=== PATIENT | female | born 1950 | race Caucasian/White ===

== ENCOUNTER 2017-09-26 12:45 | Emergency (ER) | payer OTHER, SELFPAY ==
[2017-09-26 12:47] VITALS: BP 147/70; PULSE 86; RESP 20; TEMP 37.2; O2SAT 95; BMI 48.6
[2017-09-26 13:37] LABS: Mucous, Urine 0 SEEN /hpf (<or=2+)
[2017-09-26 13:38] LABS: Color, Urine Yellow (Yellow); Glucose, Dipstick 1000 mg/dl (Normal); Ketone-Dipstick Negative (Negative); Leukocyte Esterase-Dipstick 500 /ul (Negative); Nitrite-Dipstick Positive (Negative); Occult Blood-Urine Negative /ul (Negative); Protein-Dipstick 15 mg/dl (Negative); Urine Bilirubin Dipstick Negative (Negative); Urine Clarity Sl. Cloudy (Clear); Urine Urobilinogen Normal (Normal)
[2017-09-26 13:42] LABS: Bacteria 3+ /hpf (None Seen); Red Blood Cells-Urine 0-5 SEEN /hpf (0-5); Squamous Epithelial Cells - UA 0-5 SEEN /hpf (5-10); White Blood Cells 10-25 SEEN /hpf (0-5)
[2017-09-26] MEDS: Metoclopramide 10 MG/2 ML Vial 5 MG IV (13:47)
[2017-09-26] MEDS: morphine 8 MG/ML Syringe IV (13:47)
--- NOTE | 2017-09-26 14:17 | ED.VISSUMM ---
- ER Visit Summary Date of Service: 09/26/17 Chief Complaint: Acute left flank pain. Patient's concerned she has a kidney stone History of Present Illness: The patient is a 66 F who presents with left flank pain. The pain is worse with any type of movement. She denied fever chills or night sweats. She was unaware that her temperature is 100.4. She denies cough, shortness of breath, pleuritic chest pain or pleuritic back pain. She does complain of frequency without urgency, dysuria or hematuria. There is no history of trauma. She also complains of mild bifrontal headache. Past medical history of type 2 diabetes, hypertension hypercholesterolemia. There is history of uterine cancer. She is status post hysterectomy. Physical Examination: Vital signs remarkable for temperature 100.4. BMI is 48.7. Head is atraumatic normocephalic. Pupils are equal round reactive. Extraocular muscles are intact. TMs are pearly white with landmarks noted. Nares patent with no drainage. Posterior pharynx without erythema or exudate. Uvula is midline. There is no dysphonia or dysphasia. Trachea is midline. There is no stridor with auscultation of the neck. Heart is regular without murmur, gallop or rub. S1 and S2 are normal. Lungs are clear to auscultation with good movement of air bilaterally. Abdomen is soft with tenderness of the left kidney deep palpation. There is left CVA tenderness noted. Is no dermatologic lesions noted. Straight leg test is negative. DTRs patella and ankle are symmetric. EHL is intact. No clonus or Babinski sign. Distal pulses are palpable but diminished. Test Results: UA is remarkable for pyuria and bacteria. Emergency Department Course and Treatment: 1 g of Rocephin IV piggyback. Patient's been medicated with morphine ?2. Blood work was not obtained since she does not meet criteria for sepsis. I.e. she does not have a fever she is not tachypnic is not tachycardic. Her temperature is elevated, but she does not have a fever. Treatment Plan: Prescription for ciprofloxacin 500 mg twice daily ?7 days and Percocet for pain. Disposition: Discharged home with appropriate home-going instructions Impression: Acute pyelonephritis This note was generated with [employer] dictation software. It may contain incorrect words, spelling, and punctuation that were not noted in review of the chart prior to signing ED Disposition - Plan for ED Patient: Disposition: Home or Assisted Living Chief Complaint: Flank Pain Instructions: ED Kidney Infec Female Prescriptions: Morphine [Morphine IR] 15 mg PO Q4H PRN PRN #10 tablet PRN Reason: Left flank pain Ciprofloxacin [Cipro] 500 mg PO BID #14 tab Referrals: Kyler Monge III, MD [Primary Care Provider] - 3-5 Days Additional Instructions: Your prescriptions were electronically transmitted to [facility] [place].
[2017-09-26] MEDS: Ceftriaxone 1 GM/50 ML BAG IV (14:47)
[2017-09-26] MEDS: morphine 8 MG/ML Syringe 6 MG IV (14:47)
[2017-09-26 14:53] VITALS: BP 114/40; PULSE 87; RESP 15; O2SAT 92
[2017-09-26 16:06] VITALS: BP 158/63; BP 174/69; PULSE 80; RESP 14; O2SAT 96
== END 2017-09-26 16:07 | disposition home or self-care (01) ==
PROVIDERS: Emergency Provider Emergency Medicine; Family Provider Family Medicine; PCP Family Medicine
DX: N10 Acute pyelonephritis (principal); R51 Headache; E11.9 Type 2 diabetes mellitus without complications; I10 Essential (primary) hypertension; E78.00 Pure hypercholesterolemia, unspecified; Z85.42 Personal history of malignant neoplasm of other parts of uterus; Z90.710 Acquired absence of both cervix and uterus; Z79.4 Long term (current) use of insulin; Z79.84 Long term (current) use of oral hypoglycemic drugs; Z79.899 Other long term (current) drug therapy
CPT/HCPCS: 81001; 87086; 87088; 87186; 96365; 96366; 96374; 96375; 99283

== ENCOUNTER → 2017-10-11 17:55 | Outpatient (CLI) | payer OTHER, SELFPAY ==
[2017-10-11 17:57] LABS: Bacteria 0 SEEN /hpf (None Seen); Mucous, Urine 0 SEEN /hpf (<or=2+); Red Blood Cells-Urine 0 SEEN /hpf (0-5); White Blood Cells 0 SEEN /hpf (0-5)
[2017-10-11 18:50] LABS: Color, Urine Yellow (Yellow); Glucose, Dipstick 250 mg/dl (Normal); Ketone-Dipstick Negative (Negative); Leukocyte Esterase-Dipstick Negative /ul (Negative); Nitrite-Dipstick Negative (Negative); Occult Blood-Urine Negative /ul (Negative); Protein-Dipstick Negative (Negative); Specific Gravity, Urine 1.015 (1.002-1.030); Urine Bilirubin Dipstick Negative (Negative); Urine Clarity Clear (Clear); Urine Urobilinogen Normal (Normal)
[2017-10-11 18:57] LABS: Squamous Epithelial Cells - UA 0-5 SEEN /hpf (5-10)
== END ==
PROVIDERS: Visit Provider Physician Assistant
DX: M54.5 Low back pain (principal)
CPT/HCPCS: 81001; 87086; 87088

== ENCOUNTER 2017-11-01 14:26 | Emergency (ER) | payer OTHER, SELFPAY ==
[2017-11-01 14:26] VITALS: BP 193/88; PULSE 89; RESP 18; TEMP 36.8; O2SAT 97; BMI 48.2
[2017-11-01 14:57] VITALS: BP 172/80; PULSE 85; RESP 14; O2SAT 98
[2017-11-01 15:01] VITALS: BP 142/80; BP 145/73; BP 155/74; PULSE 80; PULSE 82; PULSE 83
[2017-11-01] MEDS: 0.9% Normal Saline 1,000 ML 1000 ML IV (15:03)
[2017-11-01 15:10] LABS: Absolute Lymphocyte Count 1.95 X10^3/ul (0.83-4.51); Absolute Neutrophil Count 4.9 X10^3/uL (2.0-7.7); Basophil# 0.02 X10^3/uL; Basophil% 0.3 % (0-1); Eosinophil# 0.31 X10^3/uL; Hematocrit 36.7 % (37-47); Hemoglobin 11.2 g/dl (12.0-15.0); Lymphocyte # 1.95 X10^3/ul (4.0); Lymphocyte % 25.1 % (19-41); Mean Corp Hgb Conc 30.5 g/gl (32-36); Mean Corpuscular Hgb 26.9 pg (27.0-32.0); Mean Corpuscular Volume 88.2 fL (81-99); Monocyte# 0.55 X10^3/uL; Monocyte% 7.1 % (0-10); Neutrophil # 4.94 X10^3/uL (2.7-7.7); Neutrophil % 63.4 % (47-70); Platelet Count 246 K/mm3 (150-450); RBC Distribution Width CV 13.6 % (11.6-14.6); RBC Distribution Width SD 44.2 fl (35.1-43.9); Red Blood Count 4.16 M/mm3 (4.2-5.4); White Blood Count 7.8 K/mm3 (4.4-11.0)
[2017-11-01 15:11] LABS: POSITIVE COUNT NO; POSITIVE DIFFERENTIAL NO; POSITIVE MORPHOLOGY NO
[2017-11-01] MEDS: proMETHazine 25 MG/ML Syringe 6.25 MG IV (15:11)
[2017-11-01 15:22] LABS: Anion Gap 7 (5-15); BUN 18 mg/dL (7-18); Calcium,Total 9.2 mg/dL (8.5-10.1); Chloride 106 mmol/L (98-107); Creatinine, Serum 1.38 mg/dL (0.55-1.02); EST Glomerular Filtration Rate 41 mL/min (>60); Est Glom Filt Rate - Afr Amer 49 mL/min (>60); Estimated Creatinine Clearance 35.56 ml/min; Glucose 269 mg/dL (74-106); Potassium 4.1 mmol/L (3.5-5.1); Sodium Level 140 mmol/L (136-145)
[2017-11-01 15:42] LABS: Partial Thromboplast Time 26.7 Seconds (24.1-36.2)
--- NOTE | 2017-11-01 16:34 | ED.VISSUMM ---
- ER Visit Summary Date of Service: 11/01/17 Chief Complaint: GI bleed History of Present Illness: The patient is a [address] Kyler Monge III. She reports for the past 4-5 days she has had blood in her stool. She reports that it is a formed stool with bright red blood. She denies any perirectal pain. She does report that she has aching diffuse abdominal pain is 510 hours through 10 currently. Is worsened by nothing relieved by nothing. She has had nausea without vomiting. Physical Examination: Vitals: Stable. Afebrile. General: Well-nourished and well-developed. Head: Normocephalic atraumatic. Neck: Supple, no lymphadenopathy. No JVD. Nontender. Cardiovascular: Regular rate and rhythm. No murmurs. Respiratory: No respiratory distress. Clear to auscultation bilaterally. Abdominal: Soft, nontender, nondistended, normal bowel sounds. No guarding, rebound, or peritoneal signs. Rectal: There is a skin tag at approximately 11:00 in the prone position with an anal fissure in it. No active bleeding. Back: Nontender. Extremities: Nontender, no edema. Skin: Normal color, no rash. Neurologic: Alert and oriented ?3. Cranial nerves II through XII are intact. Normal strength and sensation. Psych: Normal affect. Test Results: CBC is marked for an H&H 11.2 and 36.7. Her last hemoglobin was 12.4 on December 13, 2016. Chem-7 is more for glucose of 269 creatinine 1.38. Her BUN is normal. Coags are negative. Emergency Department Course and Treatment: Patient had negative orthostatic vital signs while here. She has had no bleeding while here. Treatment Plan: For the patient suitable candidate for further outpatient evaluation. She is asking for referral to Dr. Rao. She is instructed to follow-up with him in 3-5 days if not improving. Return to emerge department for any worsening bleeding or concerns. Disposition: To home in improved and stable condition. Impression: 1. Anal fissure. This note was generated with [employer] software. It may contain incorrect words, spelling, and punctuation that were not noted in review of the chart prior to signing ED Disposition - Plan for ED Patient: Disposition: Home or Assisted Living Chief Complaint: GI Bleed Instructions: ED Fissure Anal Ch Referrals: Raudel Das MD [STAFF PHYSICIAN] - 3-5 Days if not improving
[2017-11-01] MEDS: Acetaminophen 500 MG Tablet 1000 MG PO (16:41)
[2017-11-01 16:42] VITALS: BP 139/71; PULSE 85; RESP 16; O2SAT 97
== END 2017-11-01 16:43 | disposition home or self-care (01) ==
PROVIDERS: Emergency Provider Emergency Medicine; Family Provider Family Medicine; PCP Family Medicine
DX: K60.2 Anal fissure, unspecified (principal); R05 Cough; R51 Headache; R11.0 Nausea; R68.83 Chills (without fever); E11.9 Type 2 diabetes mellitus without complications; I10 Essential (primary) hypertension; E78.00 Pure hypercholesterolemia, unspecified; E03.9 Hypothyroidism, unspecified; Z85.42 Personal history of malignant neoplasm of other parts of uterus; Z87.442 Personal history of urinary calculi; Z90.49 Acquired absence of other specified parts of digestive tract; Z90.710 Acquired absence of both cervix and uterus; Z79.4 Long term (current) use of insulin; Z79.84 Long term (current) use of oral hypoglycemic drugs; Z79.899 Other long term (current) drug therapy
CPT/HCPCS: 80048; 85025; 85610; 85730; 96361; 96374; 99285; J7030

== ENCOUNTER → 2018-03-14 06:59 | Outpatient (CLI) | payer MEDICARE, BC, SELFPAY ==
[2018-02-22 09:00] VITALS: BMI 48.0
--- NOTE | 2018-03-16 11:10 | PFT ---
INTRODUCTION: The patient is a 67-year-old female that presents for pulmonary function testing secondary to a diagnosis of cough. Respiratory therapy reports good patient effort. Bronchodilators were used during testing. INTERPRETATION: Forced expiration spirometry demonstrates no evidence of a large airways obstructive ventilatory defect. There was no significant response to aerosolized bronchodilators. Spirograms are of good quality and plateau normally. Body plethysmography was performed and reveals a mildly decreased TLC to 3.9 L, 81% of predicted, indicative of a mild restrictive ventilatory impairment. The ERV is significantly reduced at 26% of predicted, likely indicative of a body habitus effect. Diffusing capacity by single breath CO is within normal limits at 74% of predicted. IMPRESSION: These pulmonary function studies demonstrate the presence of a mild restrictive ventilatory impairment, likely related to a body habitus effect.
== END ==
PROVIDERS: Family Provider Family Medicine; PCP Family Medicine; Referring Provider Internal Medicine Critical Care Medicine; Visit Provider Internal Medicine Critical Care Medicine
DX: J45.991 Cough variant asthma (principal)
CPT/HCPCS: 94060; 94726; 94729

== ENCOUNTER → 2018-04-01 20:36 | Outpatient (CLI) | payer MEDICARE, BC, SELFPAY ==
[2018-02-22 09:00] VITALS: BMI 48.0
[2018-03-29 09:29] VITALS: BMI 48.0
== END ==
PROVIDERS: Family Provider Family Medicine; PCP Family Medicine; Referring Provider Internal Medicine Critical Care Medicine; Visit Provider Internal Medicine Critical Care Medicine
DX: G47.33 Obstructive sleep apnea (adult) (pediatric) (principal)
CPT/HCPCS: 95811

== ENCOUNTER 2018-04-11 05:38 | Day surgery (SDC) | payer MEDICARE, BC, SELFPAY ==
[2018-03-29 09:29] VITALS: BMI 48.0
[2018-04-11 06:06] VITALS: BP 165/75; PULSE 68; RESP 16; TEMP 37.3; O2SAT 100; BMI 50.3
[2018-04-11 06:06] LABS: Bedside Glucose 91 mg/dL (70-110)
--- NOTE | 2018-04-11 06:30 | IMM_PTH ---
PATIENT: NIMO MCCLOUD LOC: EN U#:[id number] AGE/SX: 67/F ROOM: RE04/11/[address]: Dr. Jad Colunga MD : 1950 BED: DIS: 04/11/2018 SPEC #: [id number] RECD: 04/12/18 10:09 STATUS: SIMONA REDarleen #: [id number] EDELMIRA: 04/11/18 06:[address]: Jad Colunga DEPT: IMMUNOHISTOCHEMISTRY RECD BY: Aleena Barreto ENTERED: 04/12/18 10:09 SP TYPE: IMMUNO OTHR DR: Dr. Kyler Monge III, MD Tissues: B - Stomach, NOS Procedures: H Pylori (initial) PHYSICIAN & INSTITUTION [place] [id number] SPECIMEN INFORMATION: Tissue Source: B - Antrum biopsy Clinical Info: Iron deficiency anemia Specimen Number: [id number] CPT code: 21076 METHODOLOGY: Deparaffinized sections of prefer/formalin-fixed tissue or PAP/DQ stained slides are incubated with monoclonal/polyclonal antibodies/oligonucleotide probes. Localization is made via biotin free immunoperoxidase method. Appropriate controls are performed and reacted as expected. Results on target cell population are indicated in the following table: RESULTS: ANTIBODY / CLONE RESULT Block B H Pylori (polyclonal) negative These tests were developed and their performance characteristics determined by [facility]. They may not have been cleared or approved by the U.S. Food and Drug Administration. The FDA has determined that such clearance or approval is not necessary. INTERPRETATION: B. Antrum, biopsy: Negative for Helicobacter pylori organisms. AM:jorge 04/12/18
--- NOTE | 2018-04-11 06:30 | EGD_PTH ---
PATIENT: NIMO MCCLOUD LOC: EN U#:[id number] AGE/SX: 67/F ROOM: RE04/11/[address]: Dr. Jad Colunga MD : 1950 BED: DIS: 04/11/2018 SPEC #: [id number] RECD: 04/11/18 10:28 STATUS: SIMONA ARETHA #: [id number] EDELMIRA: 04/11/18 06:[address]: Jad Colunga DEPT: SURGICAL PATHOLOGY RECD BY: Andrews Bateman ENTERED: 04/11/18 11:17 SP TYPE: EGD BIOPSY OT DR: Dr. Kyler Monge III, MD Tissues: A - Duodenum, NOS B - Gastric mucous membrane Procedures: Surgery Specimen Level IV HEADER OPERATION: EGD ([facility] [place]) PRE-OP DIAGNOSIS: Iron deficiency anemia TISSUE SUBMITTED: A - Duodenum biopsy, B - Antrum biopsy for H. pylori and path MICROSCOPIC DIAGNOSIS A. Duodenum, biopsy: Minimal nonspecific chronic inflammation. B. Gastric antrum, biopsy: Mild chronic inflammation. AM:jorge 04/12/18 COMMENT B. The results of immunohistochemistry for Helicobacter pylori will be reported separately ([id number]). MICROSCOPIC DESCRIPTION Slides are reviewed. GROSS DESCRIPTION A - Received in fixative is one container labeled with the patient's name and designated biopsy duodenum. The specimen consists of one irregular fragment of light seay soft tissue that measures 0.3 x 0.2 x 0.1 cm. The specimen is totally submitted in one cassette. B - Received in fixative is one container labeled with the patient's name and designated biopsy gastric antrum. The specimen consists of one irregular fragment of light seay soft tissue that measures 0.7 x 0.2 x 0.1 cm. The specimen is totally submitted in one cassette. / AM:jorge 04/11/18 TC:3 CPT: 99479 x2
--- NOTE | 2018-04-11 06:49 | OP.ENDO_ITS ---
Patient Name: Mana Martínez Procedure Date: 04/11/2018 6:00 AM Date of : 1950 Age: 67 Procedure: Upper GI endoscopy Indications: Iron deficiency anemia Providers: Jad Colunga MD Referring MD: Jad Colunga MD Medicines: See the Anesthesia note for documentation of the administered medications Patient Profile: This is a 67 year old female. Refer to note in patient chart for documentation of history and physical. Complications: No immediate complications. Procedure: Pre-Anesthesia Assessment: - Prior to the procedure, a History and Physical was performed, and patient medications and allergies were reviewed. The patient's tolerance of previous anesthesia was also reviewed. The risks and benefits of the procedure and the sedation options and risks were discussed with the patient. All questions were answered, and informed consent was obtained. Prior Anticoagulants: The patient has taken no previous anticoagulant or antiplatelet agents. ASA Grade Assessment: III - A patient with severe systemic disease. After reviewing the risks and benefits, the patient was deemed in satisfactory condition to undergo the procedure. After obtaining informed consent, the endoscope was passed under direct vision. Throughout the procedure, the patient's blood pressure, pulse, and oxygen saturations were monitored continuously. The gastroscope was introduced through the mouth, and advanced to the second part of duodenum. The upper GI endoscopy was accomplished without difficulty. The patient tolerated the procedure well. Scope In: 6:39:47 AM Scope Out: 6:43:21 AM Total Procedure Duration Time 0 hours 3 minutes 34 seconds Findings: The Z-line was variable and was found 40 cm from the incisors. No biopsies or other specimens were collected for this exam. The examined esophagus was normal. No biopsies or other specimens were collected for this exam. Localized minimal inflammation characterized by erythema was found in the prepyloric region of the stomach. Biopsies were taken with a cold forceps for Helicobacter pylori testing. A small amount of food (residue) was found in the gastric fundus. No gross lesions were noted in the duodenal bulb. Biopsies were taken with a cold forceps for histology. Impression: - Z-line variable, 40 cm from the incisors. No specimens collected. - Normal esophagus. No specimens collected. - Gastritis. Biopsied. - A small amount of food (residue) in the stomach. - No gross lesions in the duodenal bulb. Biopsied. Recommendation: - Await pathology results. - Repeat upper endoscopy at appointment to be scheduled per protocol. - Return to physician endodontic assistant in 3 weeks. - Continue present medications. Procedure Code(s): --- Professional --- 64611, Esophagogastroduodenoscopy, flexible, transoral; with biopsy, single or multiple Diagnosis Code(s): --- Professional --- K22.8, Other specified diseases of esophagus K29.70, Gastritis, unspecified, without bleeding D50.9, Iron deficiency anemia, unspecified CPT copyright 2017 [employer]. All rights reserved. The codes documented in this report are preliminary and upon design drafter chief review may be revised to meet current compliance requirements. MD Jad Blum MD 04/11/2018 6:48:57 AM This report has been signed electronically. Number of Addenda: 0 Note Initiated On: 04/11/2018 6:00 AM
[2018-04-11 06:50] VITALS: BP 143/81; BP 145/73; BP 165/75; PULSE 68; RESP 18; TEMP 36.8; O2SAT 95
[2018-04-11 06:55] VITALS: BP 153/75; BP 165/75; PULSE 67; RESP 18; O2SAT 95
[2018-04-11 07:00] VITALS: BP 148/73; BP 165/75; PULSE 70; RESP 18; O2SAT 96
[2018-04-11 07:05] VITALS: BP 144/82; BP 165/75; PULSE 64; RESP 18; TEMP 36.9; O2SAT 95
[2018-04-11 07:14] VITALS: BP 165/75
== END 2018-04-11 07:32 | disposition home or self-care (01) ==
LOC: EN 05:39 → AC 05:40
PROVIDERS: Family Provider Family Medicine; PCP Family Medicine; Referring Provider Surgery; Visit Provider Surgery
PROC: 0DJ08ZZ Inspection of Upper Intestinal Tract, Via Natural or Artificial Opening Endoscopic (ICD-10-PCS; CPT 43235; principal; 2018-04-11 06:25)
DX: K29.50 Unspecified chronic gastritis without bleeding (principal); K44.9 Diaphragmatic hernia without obstruction or gangrene; K29.80 Duodenitis without bleeding; D50.9 Iron deficiency anemia, unspecified; I10 Essential (primary) hypertension; J45.909 Unspecified asthma, uncomplicated; G47.30 Sleep apnea, unspecified; G25.81 Restless legs syndrome; K21.9 Gastro-esophageal reflux disease without esophagitis; E78.00 Pure hypercholesterolemia, unspecified; E11.9 Type 2 diabetes mellitus without complications; F32.9 Major depressive disorder, single episode, unspecified; E06.9 Thyroiditis, unspecified; M19.90 Unspecified osteoarthritis, unspecified site; Z86.010 Personal history of colon polyps; Z85.42 Personal history of malignant neoplasm of other parts of uterus; Z87.19 Personal history of other diseases of the digestive system; Z78.0 Asymptomatic menopausal state; Z90.49 Acquired absence of other specified parts of digestive tract; Z79.84 Long term (current) use of oral hypoglycemic drugs; Z79.4 Long term (current) use of insulin; Z79.899 Other long term (current) drug therapy
CPT/HCPCS: 43239; 82962; 88305; 88342; J7120

== ENCOUNTER 2018-05-25 12:09 | Observation (INO) | payer MEDICARE, BC, SELFPAY ==
[2018-04-18 10:52] VITALS: BMI 48.7
[2018-05-25] VITALS (16 sets, daily range): BP systolic 118–145; BP diastolic 49–71; PULSE 69–84; RESP 14–18; TEMP 36.7–36.8; O2SAT 93–98; BMI 54.3; BMI 49.6
--- NOTE | 2018-05-25 12:25 | RAD_ITS ---
STUDY: X-RAY CHEST REASON FOR EXAM: Female, 67 years old. Left-sided chest pain and chest tightness. TECHNIQUE: Single AP portable view of the chest. COMPARISON: Comparison is made with prior study dated August 29, 2012. FINDINGS: Mild elevation of the right hemidiaphragm. The lungs are clear. There is no demonstrated pleural abnormality. There is moderate cardiac enlargement. Normal mediastinum and erin. Normal visualized pulmonary arteries. There is atherosclerotic calcification of the aortic arch with tortuosity. There are diffuse degenerative changes of the visualized thoracic spine. There is degenerative osteoarthritis of the bilateral shoulders. There is no demonstrated abnormality of the visualized soft tissue structures of the upper abdomen. RAD/Chest 1 View (Portable) IMPRESSION: Moderate degree of cardiomegaly. Electronically Signed: Heriberto Polanco, at 13:21 EDT , Service support ,
--- NOTE | 2018-05-25 12:25 | EKG12_ITS ---
Test Reason : CP ADMISSION Blood Pressure : / mmHG Vent. Rate : 070 BPM Atrial Rate : 070 BPM P-R Int : 000 ms QRS Dur : 092 ms QT Int : 440 ms P-R-T Axes : 000 -05 060 degrees QTc Int : 475 ms Normal sinus rhythm Cannot rule out Anterior infarct , age undetermined Abnormal ECG When compared with ECG of 25-MAY-2018 12:15, MANUAL COMPARISON REQUIRED, DATA IS UNCONFIRMED Confirmed by AYANNA GO ([id number]), editor managing newspaper CELESTINE MICHAUD ([id number]) on 05/30/2018 5:14:10 PM Referred By: Zeferino Jackson Confirmed By:AYANNA GO
--- NOTE | 2018-05-25 12:26 | ED.VIS.GEN ---
History of Present Illness Chief Complaint: Chest Pain Detail of Chief Complaint: Episode last night and this morning Informant: Patient, Family Onset: Today, Yesterday Context: Sudden Onset Timing: Intermittent Quality: Last evening burning this morning pressure Location: Central to left-sided chest Current Severity: Moderate Maximum Severity: Severe Worsened by: Nothing Relieved by: Improved with nitro administered by EMS Associated Symptoms: Last night none, this morning dyspnea, nausea diaphoresis and radiation Narrative: Patient is an elderly woman with multiple risk factors for coronary disease and BMI of 54.4. Mother had LA at age 62 father had LA at the age of 55. She states she has never smoked. She denies known history of coronary disease. She does have history of hiatal hernia. She denies hematemesis, melena hematochezia. She denies pleuritic pain. She denies history of PE or DVT. She denies increased leg swelling and denies leg pain or discoloration. Prior similar symptoms: No Recent Illness/Hospitalization: No - Past Medical History (1) Vertigo Status: Acute (2) Benign essential HTN Status: Chronic (3) DM2 (diabetes mellitus, type 2) Status: Chronic (4) Dyslipidemia Status: Chronic (5) Morbid obesity Status: Chronic (6) ANISHA (obstructive sleep apnea) Status: Chronic Comment: Initiating BiPAP 18/14 cm of water Past Medical History - Allergies and Home Meds Allergies/Adverse Reactions: Allergies ondansetron HCl [From Zofran (as hydrochloride)] Allergy (Verified 04/18/18 10:53) Rash acetaminophen [From Percocet] Adverse Reaction (Verified 04/18/18 10:53) Rash oxycodone HCl [From Percocet] Adverse Reaction (Verified 04/18/18 10:53) Rash Penicillins [PCN] Adverse Reaction (Verified 04/18/18 10:53) Other states she gets a yeast infection propoxyphene napsylate [From Darvocet-N 100] Adverse Reaction (Verified 04/18/18 10:53) Rash shellfish derived Adverse Reaction (Verified 04/18/18 10:53) Rash Primary Care Physician: Kyler Monge III, MD [Primary Care Provider] - Prior records reviewed: Yes Surgical History: cholecystectomy, hysterectomy - With bilateral salpingo-oophorectomy, - Lives: Alone Smoking Status: Never smoker Alcohol: None - Family History Maternal Family History: Family History (Last Reviewed 04/18/18 @ 13:09 by JUSTIN Branch) Father Colon cancer Other Cancer Diabetes Heart disease Hypertension Family History: Reports: No pertinent history Review of Systems General: Denies: Chills, Fever, Sweats Eyes: Denies: Visual changes - bilaterally, Blurred Vision - bilaterally, Diplopia ENT: Denies: Rhinorrhea, Sore throat Cardiovascular: Reports: Chest pain. Denies: Palpitations Respiratory: Reports: Dyspnea. Denies: Cough, Dyspnea on exertion, Orthopnea, Paroxysmal nocturnal dyspnea Gastrointestinal: Reports: Nausea - Take think 5 abdominal. Denies: Abdominal pain, Vomiting, Diarrhea, Melena, Hematochezia Genitourinary: Denies: Dysuria, Hematuria, Frequency Musculoskeletal: Denies: Myalgias, Arthralgias, Back pain, Extremity Pain Skin: Denies: Rash, Wounds Neurological: Denies: Headache, Weakness, Numbness Endocrine: Denies: Polyuria, Polydipsia Hematologic: Denies: Easy bruising, Easy bleeding Physical Exam Vital Signs/Narrative: Vital Signs Temp Pulse Resp BP Pulse Ox 05/25/18 12:13 98.2 F 73 18 145/71 H 96 General: Well nourished, Well developed, Obese, No Acute Distress Head: Normocephalic, Atraumatic Eyes: Perrl, EOMI. Negative for: Pale conjunctiva, Scleral icterus ENT: Moist mucous membranes, No rhinorrhea Neck: Supple, Nontender, No lymphadenopathy, No JVD Cardiovascular: Regular rate, Regular rhythm, No murmurs, Normal S1, Normal S2 Respiratory: No distress, CTA bilaterally, Chest nontender Abdomen: Soft, Nontender, Nondistended, Normal bowel sounds, No masses Rectal: Deferred Back: Nontender, Normal Inspection Extremities: Nontender, Edema - 1+ pitting Skin: Normal color, No rash Neurological: Alert, Oriented x3, Cranial nerves II-XII grossly intact, Normal Strength, Normal Sensation Psychological: Normal affect, Normal Mood Diagnostic/Tx/Re-eval Chest X-Ray - ED: 1 View, Read by ED Physician, Normal, Mediastinum, Bony Structures, No Acute Disease, Chronic Changes, Cardiomegaly Impressions Chest X-Ray 05/25/18 12:25 IMPRESSION: Moderate degree of cardiomegaly. Electronically Signed: Heriberto Polanco, at 13:21 EDT , Service support , 05/25/18 12:25 Chest 1 View (Portable) [RAD] Stat Laboratory Results 05/25/18 05/25/18 12:15 12:15 WBC 8.4 RBC 4.40 Hgb 11.5 L Hct 38.1 MCV 86.6 MCH 26.1 L MCHC 30.2 L RDW 15.2 H RDW Differential 48.0 H Plt Count 276 MPV 10.3 Immature Gran % (Auto) 0.200 Neut % (Auto) 64.0 Lymph % (Auto) 27.2 [place] % (Auto) 6.4 Eos % (Auto) 1.8 Baso % (Auto) 0.4 Absolute Neuts (auto) 5.4 Absolute Lymphs (auto) 2.28 Total Counted Not Reportable Sodium 136 Potassium 4.0 Chloride 103 Carbon Dioxide 26.0 Anion Gap 7 BUN 22 H Creatinine 1.50 H Estim Creat Clear Calc 32.29 Est GFR (MDRD) Af Amer 45 L Est GFR (MDRD) Non-Af 37 L BUN/Creatinine Ratio 14.7 Glucose 249 H Calcium 8.9 Troponin I < 0.015 - Rhythm Strip Rhythm Strip: Sinus Rhythm Rate: 78 Ectopy: None - EKG Initial EKG Interpretation: Sinus Rhythm - Ventricular rate 80 with decreased voltage. RI interval, QRS duration, QT interval and axis are normal. Decreased anterior force noted. - Medical Decision Making With multiple risk factors coronary disease improvement with nitro will obtain cardiac workup. Chest x-ray to evaluate for CHF/infiltrate etc. Because she is diabetic will obtain basic metabolic panel to assess electrode, renal function and blood sugar. CBC to assess H&H. Troponin was obtained. She was treated with nitroglycerin since she reported improvement when given nitro by paramedics. Patient still complaining of chest tightness. Heart score 5. Since patient still having pain will contact hospitalist for 23 observation PCU. ED Disposition - Plan for ED Patient: Disposition: Acute Care Hospital [facility] Diagnosis: Chest pain, Benign essential HTN, Hyperlipidemia, DM2 (diabetes mellitus, type 2), Morbid obesity, ANISHA (obstructive sleep apnea) Referrals: Kyler Monge III, MD [Primary Care Provider] -
--- NOTE | 2018-05-25 12:30 | ED.DCSUM_ITS ---
History of Present Illness Chief Complaint: Chest Pain Detail of Chief Complaint: Episode last night and this morning Informant: Patient, Family Onset: Today, Yesterday Context: Sudden Onset Timing: Intermittent Quality: Last evening burning this morning pressure Location: Central to left-sided chest Current Severity: Moderate Maximum Severity: Severe Worsened by: Nothing Relieved by: Improved with nitro administered by EMS Associated Symptoms: Last night none, this morning dyspnea, nausea diaphoresis and radiation Narrative: Patient is an elderly woman with multiple risk factors for coronary disease and BMI of 54.4. Mother had ME at age 62 father had ME at the age of 55. She states she has never smoked. She denies known history of coronary disease. She does have history of hiatal hernia. She denies hematemesis, melena hematochezia. She denies pleuritic pain. She denies history of PE or DVT. She denies increased leg swelling and denies leg pain or discoloration. Prior similar symptoms: No Recent Illness/Hospitalization: No - Past Medical History (1) Vertigo Status: Acute (2) Benign essential HTN Status: Chronic (3) DM2 (diabetes mellitus, type 2) Status: Chronic (4) Dyslipidemia Status: Chronic (5) Morbid obesity Status: Chronic (6) ANISHA (obstructive sleep apnea) Status: Chronic Comment: Initiating BiPAP 18/14 cm of water Past Medical History - Allergies and Home Meds Allergies/Adverse Reactions: Allergies ondansetron HCl [From Zofran (as hydrochloride)] Allergy (Verified 04/18/18 10:53) Rash acetaminophen [From Percocet] Adverse Reaction (Verified 04/18/18 10:53) Rash oxycodone HCl [From Percocet] Adverse Reaction (Verified 04/18/18 10:53) Rash Penicillins [PCN] Adverse Reaction (Verified 04/18/18 10:53) Other states she gets a yeast infection propoxyphene napsylate [From Darvocet-N 100] Adverse Reaction (Verified 04/18/18 10:53) Rash shellfish derived Adverse Reaction (Verified 04/18/18 10:53) Rash Primary Care Physician: Kyler Monge III, MD [Primary Care Provider] - Prior records reviewed: Yes Surgical History: cholecystectomy, hysterectomy - With bilateral salpingo- oophorectomy, - Lives: Alone Smoking Status: Never smoker Alcohol: None - Family History Maternal Family History: Family History (Last Reviewed 04/18/18 @ 13:09 by JUSTIN Branch) Father Colon cancer Other Cancer Diabetes Heart disease Hypertension Family History: Reports: No pertinent history Review of Systems General: Denies: Chills, Fever, Sweats Eyes: Denies: Visual changes - bilaterally, Blurred Vision - bilaterally, Diplopia ENT: Denies: Rhinorrhea, Sore throat Cardiovascular: Reports: Chest pain. Denies: Palpitations Respiratory: Reports: Dyspnea. Denies: Cough, Dyspnea on exertion, Orthopnea, Paroxysmal nocturnal dyspnea Gastrointestinal: Reports: Nausea - Take think 5 abdominal. Denies: Abdominal pain, Vomiting, Diarrhea, Melena, Hematochezia Genitourinary: Denies: Dysuria, Hematuria, Frequency Musculoskeletal: Denies: Myalgias, Arthralgias, Back pain, Extremity Pain Skin: Denies: Rash, Wounds Neurological: Denies: Headache, Weakness, Numbness Endocrine: Denies: Polyuria, Polydipsia Hematologic: Denies: Easy bruising, Easy bleeding Physical Exam Vital Signs/Narrative: Vital Signs Temp Pulse Resp BP Pulse Ox 05/25/18 12:13 98.2 F 73 18 145/71 H 96 General: Well nourished, Well developed, Obese, No Acute Distress Head: Normocephalic, Atraumatic Eyes: Perrl, EOMI. Negative for: Pale conjunctiva, Scleral icterus ENT: Moist mucous membranes, No rhinorrhea Neck: Supple, Nontender, No lymphadenopathy, No JVD Cardiovascular: Regular rate, Regular rhythm, No murmurs, Normal S1, Normal S2 Respiratory: No distress, CTA bilaterally, Chest nontender Abdomen: Soft, Nontender, Nondistended, Normal bowel sounds, No masses Rectal: Deferred Back: Nontender, Normal Inspection Extremities: Nontender, Edema - 1+ pitting Skin: Normal color, No rash Neurological: Alert, Oriented x3, Cranial nerves II-XII grossly intact, Normal Strength, Normal Sensation Psychological: Normal affect, Normal Mood Diagnostic/Tx/Re-eval Chest X-Ray - ED: 1 View, Read by ED Physician, Normal, Mediastinum, Bony Structures, No Acute Disease, Chronic Changes, Cardiomegaly Impressions Chest X-Ray 05/25/18 12:25 IMPRESSION: Moderate degree of cardiomegaly. Electronically Signed: Heriberto Polanco, at 13:21 EDT , Service support , 05/25/18 12:25 Chest 1 View (Portable) [RAD] Stat Laboratory Results 05/25/18 05/25/18 12:15 12:15 WBC 8.4 RBC 4.40 Hgb 11.5 L Hct 38.1 MCV 86.6 MCH 26.1 L MCHC 30.2 L RDW 15.2 H RDW Differential 48.0 H Plt Count 276 MPV 10.3 Immature Gran % (Auto) 0.200 Neut % (Auto) 64.0 Lymph % (Auto) 27.2 [place] % (Auto) 6.4 Eos % (Auto) 1.8 Baso % (Auto) 0.4 Absolute Neuts (auto) 5.4 Absolute Lymphs (auto) 2.28 Total Counted Not Reportable Sodium 136 Potassium 4.0 Chloride 103 Carbon Dioxide 26.0 Anion Gap 7 BUN 22 H Creatinine 1.50 H Estim Creat Clear Calc 32.29 Est GFR (MDRD) Af Amer 45 L Est GFR (MDRD) Non-Af 37 L BUN/Creatinine Ratio 14.7 Glucose 249 H Calcium 8.9 Troponin I < 0.015 - Rhythm Strip Rhythm Strip: Sinus Rhythm Rate: 78 Ectopy: None - EKG Initial EKG Interpretation: Sinus Rhythm - Ventricular rate 80 with decreased voltage. NM interval, QRS duration, QT interval and axis are normal. Decreased anterior force noted. - Medical Decision Making With multiple risk factors coronary disease improvement with nitro will obtain cardiac workup. Chest x-ray to evaluate for CHF/infiltrate etc. Because she is diabetic will obtain basic metabolic panel to assess electrode, renal function and blood sugar. CBC to assess H&H. Troponin was obtained. She was treated with nitroglycerin since she reported improvement when given nitro by paramedics. Patient still complaining of chest tightness. Heart score 5. Since patient still having pain will contact hospitalist for 23 observation PCU. ED Disposition - Plan for ED Patient: Disposition: Acute Care [facility] Diagnosis: Chest pain, Benign essential HTN, Hyperlipidemia, DM2 (diabetes mellitus, type 2), Morbid obesity, ANISHA (obstructive sleep apnea) Referrals: Kyler Monge III, MD [Primary Care Provider] -
[2018-05-25 12:54] LABS: Absolute Lymphocyte Count 2.28 X10^3/ul (0.83-4.51); Absolute Neutrophil Count 5.4 X10^3/uL (2.0-7.7); Basophil# 0.03 X10^3/uL; Basophil% 0.4 % (0-1); Eosinophil# 0.15 X10^3/uL; Eosinophils% 1.8 % (0-5); Hematocrit 38.1 % (37-47); Hemoglobin 11.5 g/dl (12.0-15.0); Lymphocyte # 2.28 X10^3/ul (4.0); Lymphocyte % 27.2 % (19-41); Mean Corp Hgb Conc 30.2 g/gl (32-36); Mean Corpuscular Hgb 26.1 pg (27.0-32.0); Mean Corpuscular Volume 86.6 fL (81-99); Mean Platelet Vol. 10.3 fl (6.2-12.0); Monocyte# 0.54 X10^3/uL; Monocyte% 6.4 % (0-10); Neutrophil # 5.37 X10^3/uL (2.7-7.7); Platelet Count 276 K/mm3 (150-450); RBC Distribution Width CV 15.2 % (11.6-14.6); White Blood Count 8.4 K/mm3 (4.4-11.0)
[2018-05-25 12:57] LABS: Anion Gap 7 (5-15); BUN 22 mg/dL (7-18); BUN/Creat Ratio 14.7 RATIO (10-20); Calcium,Total 8.9 mg/dL (8.5-10.1); Chloride 103 mmol/L (98-107); EST Glomerular Filtration Rate 37 mL/min (>60); Est Glom Filt Rate - Afr Amer 45 mL/min (>60); Estimated Creatinine Clearance 32.29 ml/min; Glucose 249 mg/dL (74-106); Sodium Level 136 mmol/L (136-145)
[2018-05-25 13:04] LABS: POSITIVE COUNT NO; POSITIVE DIFFERENTIAL NO; POSITIVE MORPHOLOGY NO
--- NOTE | 2018-05-25 13:36 | NURSING ---
PCU OBS KWAME BRITT
[2018-05-25] MEDS: Metoclopramide 10 MG/2 ML Vial 5 MG IV (13:40)
--- NOTE | 2018-05-25 14:10 | PCM.HP.STD ---
Problem List (1) Atypical chest pain Status: Acute (2) Restrictive ventilatory defect Status: Chronic (3) ANISHA (obstructive sleep apnea) Status: Chronic Comment: Initiating BiPAP 18/14 cm of water (4) Mid back pain on left side Status: Chronic (5) Hyperlipidemia Status: Chronic (6) Uterine cancer Status: Chronic (7) Morbid obesity Status: Chronic (8) Dyslipidemia Status: Chronic (9) DM2 (diabetes mellitus, type 2) Status: Chronic (10) Vertigo Status: Resolved (11) Benign essential HTN Status: Chronic History of Present Illness Date of Admission: 05/25/18 Chief Complaint: Chest pain The patient is a 67 year old F with history of diabetes mellitus type 2, hypertension and morbid obesity with obstructive sleep apnea on CPAP came to ED with left-sided chest pain since yesterday evening. It was mild discomfort yesterday but today in the morning around 10 AM and got worse with radiation to left arm, along with nausea, diaphoresis and dizziness. She felt mild shortness of breath. Chest pain was intermittent, lasting for about 45 minutes. She denies any previous history of chest pain/coronary artery disease or NE. She had a stress test many years ago and was probably negative as per her memory. EKG shows normal sinus rhythm at 86 bpm. No change in EKG as compared to previous EKG of January 2016. She denies any previous history of DVT/PE. Basic blood work is within acceptable limit except BUN 22/creatinine 1.5. Her baseline creatinine is about 1.3-1.4 in December 2016. Past Medical History Past Medical History (Chronic Problems): Chronic Problems (Last Reviewed 04/18/18 @ 13:09 by JUSTIN Branch) Restrictive ventilatory defect (Chronic) ANISHA (obstructive sleep apnea) (Chronic) Initiating BiPAP 18/14 cm of water Mid back pain on left side (Chronic) Hyperlipidemia (Chronic) Uterine cancer (Chronic) Morbid obesity (Chronic) Dyslipidemia (Chronic) DM2 (diabetes mellitus, type 2) (Chronic) Benign essential HTN (Chronic) Medical History: Medical History (Last Reviewed 04/18/18 @ 13:09 by Kathryn Quintanilla NP-C) Asthma J45.909 Back pain M54.9 Cancer C80.1 Diabetes E11.9 Diarrhea R19.7 Fatigue R53.83 Hemorrhoids K64.9 Kidney disease N28.9 Shoulder pain M25.519 Thyroid disease E07.9 HTN (hypertension) I10 Allergies ondansetron HCl [From Zofran (as hydrochloride)] Allergy (Verified 04/18/18 10:53) Rash acetaminophen [From Percocet] Adverse Reaction (Verified 04/18/18 10:53) Rash oxycodone HCl [From Percocet] Adverse Reaction (Verified 04/18/18 10:53) Rash Penicillins [PCN] Adverse Reaction (Verified 04/18/18 10:53) Other states she gets a yeast infection propoxyphene napsylate [From Darvocet-N 100] Adverse Reaction (Verified 04/18/18 10:53) Rash shellfish derived Adverse Reaction (Verified 04/18/18 10:53) Rash Home Medications: Ambulatory Orders Medication Instructions Recorded Furosemide 40 mg PO DAILY 08/25/14 Lovastatin [Mevacor] 20 mg PO QHS 08/25/14 Metformin HCl [Glucophage] 1,000 tab PO BIDCM 08/25/14 Insulin Glargine,Hum.rec.anlog 58 unit SQ BID 10/24/15 [Lantus] buPROPion XL [Wellbutrin Xl] 300 mg PO DAILY 02/10/16 amitriptyline 25 mg tablet 25 mg PO QHS 30 Days #30 10/11/17 insulin aspart U- 100 100 unit/mL 38 unit SC TIDCM ml 10/11/17 subcutaneous pen sitagliptin 50 mg tablet 50 mg PO QHS 10/11/17 albuterol sulfate HFA 90 1 puff INHALATION Q6H PRN 03/29/18 mcg/actuation aerosol inhaler Ferrous Sulfate 325 mg PO BID 05/25/18 Fluticasone Furoate [Arnuity 1 inh INHALATION DAILY 05/25/18 Ellipta] Levothyroxine Sodium [Synthroid] 25 mcg PO DAILY 05/25/18 Levothyroxine Sodium [Synthroid] 200 mcg PO DAILY 05/25/18 Losartan Potassium 100 mg PO DAILY 05/25/18 Surgical History: Surgical History (Last Reviewed 04/18/18 @ 13:09 by Kathryn Quintanilla DRAWBENCH OPERATOR HELPER-C) S/P colonoscopy Z98.890 2017 S/P hysterectomy Z90.710 S/P wrist surgery Z98.890 Status post laparoscopic cholecystectomy Z90.49 Stone, kidney N20.0 Upper scope 04/11/18, Dr. Colunga Surgical History: cholecystectomy, hysterectomy - With bilateral salpingo-oophorectomy, - Lives: Alone Smoking Status: Never smoker Alcohol: None - *Family History Maternal Family History: Family History (Last Updated 05/25/18 @ 14:23 by Zeferino Jackson MD) Father Colon cancer Grandmother No problems noted. Mother Colon cancer Cancer Heart disease Other Diabetes Hypertension History Items: Heart Disease - At the age of 57, No pertinent history Review of Systems Constitutional: Denies: Chills, Fever, Weight Change HEENT: Denies: Head Aches, Sinus Congestion, Sinus Drainage Cardiovascular: Reports: Chest Pain, Edema. Denies: Palpitations Respiratory: Reports: Shortness of Breath. Denies: Cough, Shortness of breath at rest, Sputum production Gastrointestinal: Denies: Abdominal Pain, Nausea, Vomiting Genitourinary: Denies: Dysuria, Frequency, Hesitancy Musculoskeletal: Reports: Back Pain, Joint Pain. Denies: Joint Tenderness Skin: Denies: Rash, Wounds Neurological: Reports: Incoordination. Denies: Focal weakness, Numbness, Tingling Psychiatric: Denies: Anxiety, Depression, Homicidal Ideations, Suicidal Ideations Hematologic/ Lymphatic: Denies: Easy Bruising, Easy Bleeding VTE Information - Inpt Only VTE Present on Admission: No VTE Mechan Device Prophylaxis: None VTE Pharm Prophylaxis ordered?: Yes Patient Problems: Active and Suspected Problems (Last Reviewed 04/18/18 @ 13:09 by Kathryn Quintanilla NP-C) Atypical chest pain (Acute) - Physical Exam General: Alert, Oriented x3, Cooperative HEENT: Atraumatic, PERRLA, EOMI, Normocephalic Oral: No Gingival or Mucosal Lesions/ Ulcerations, Dry Mucosa Neck: Supple, No JVD, Negative Carotid Bruits Lungs: Clear to auscultation, No rhonchi, No wheeze, No rales, Diminished - Morbid obesity with diminished air entry bilaterally Cardiovascular: Regular rate, Regular Rhythm, Normal S1, Normal S2, No murmurs Abdomen: Bowel Sounds Present, Soft, Non Tender, Non-Distended Extremities: Capillary Refill Less than 3 Seconds, Edema - Chronic edema of lower extremities on Lasix Skin: No rashes, No breakdown Musculoskeletal: No Tenderness to Palpation of Joints or Extremities, Arthritic Changes, Muscle Wasting Lymphatic: No Cervical, Supraclavicular, or Inguinal Adenopathy Neurological: Cranial nerves II-XII grossly intact, Deep Tendon Reflexes 2+/4 and Symmetrical, Neuro grossly intact Psych/Mental Status: Normal Affect, Appropriate Vital Signs Temp Pulse Resp BP Pulse Ox 98.2 F 70 17 124/60 H 96 05/25/18 12:13 05/25/18 14:02 05/25/18 14:02 05/25/18 14:02 05/25/18 14:02 Oxygen Flow Rate (L/min) 2 Oxygen Delivery Method Nasal Cannula Weight: 316 lb 12.515 oz Body Mass Index (BMI) 54.3 Laboratory Tests Past 24 Hrs 05/25/18 05/25/18 12:15 12:15 WBC 8.4 RBC 4.40 Hgb 11.5 L Hct 38.1 MCV 86.6 MCH 26.1 L MCHC 30.2 L RDW 15.2 H RDW Differential 48.0 H Plt Count 276 MPV 10.3 Immature Gran % (Auto) 0.200 Neut % (Auto) 64.0 Lymph % (Auto) 27.2 [place] % (Auto) 6.4 Eos % (Auto) 1.8 Baso % (Auto) 0.4 Absolute Neuts (auto) 5.4 Absolute Lymphs (auto) 2.28 Total Counted Not Reportable Sodium 136 Potassium 4.0 Chloride 103 Carbon Dioxide 26.0 Anion Gap 7 BUN 22 H Creatinine 1.50 H Estim Creat Clear Calc 32.29 Est GFR (MDRD) Af Amer 45 L Est GFR (MDRD) Non-Af 37 L BUN/Creatinine Ratio 14.7 Glucose 249 H Calcium 8.9 Troponin I < 0.015 Assessment/Plan All Active Problems (Last Reviewed 04/18/18 @ 13:09 by Kathryn Quintanilla, JOSE-C) Atypical chest pain (Acute) Vertigo (Resolved) The patient is a 67 year old F with history of diabetes mellitus type 2, hypertension and morbid obesity with obstructive sleep apnea on CPAP came to ED with left-sided chest pain since yesterday evening. It was mild discomfort yesterday but today in the morning around 10 AM and got worse with radiation to left arm, along with nausea, diaphoresis and dizziness. She felt mild shortness of breath. Chest pain was intermittent, lasting for about 45 minutes. She denies any previous history of chest pain/coronary artery disease or NE. She had a stress test many years ago and was probably negative as per her memory. EKG shows normal sinus rhythm at 86 bpm. No change in EKG as compared to previous EKG of January 2016. She denies any previous history of DVT/PE. Basic blood work is within acceptable limit except BUN 22/creatinine 1.5. Her baseline creatinine is about 1.3-1.4 in December 2016. 1. Atypical chest pain, coronary Home medication reconciliation done patient is being admitted in PCU. Cycle cardiac enzymes. D-dimer is ordered. Pharmacological nuclear stress test tomorrow morning. Hold Lasix 2. CKD stage III: Hold Lasix. IV fluid normal saline at 50 mill per hour 3. Diabetes mellitus type 2: Continue insulin glargine and aspart. A1c tomorrow a.m. Accu-Chek before meals and at bedtime cover with NovoLog sliding scale. 4. Hypothyroidism: On levothyroxine. TSH and free T4 tomorrow a.m. 5. Dyslipidemia: Fasting profile tomorrow a.m. Continue lovastatin 6. Obstructive sleep apnea on CPAP 7. Other comorbidities include morbid obesity, hypertension, chronic lower back pain and had a restrictive ventilatory defect secondary to morbid obesity/obesity hypoventilation syndrome: Home medication reconciliation done. DVT prophylaxis: On Lovenox 40 subcu daily. Discontinue if platelet count drops less than 50,000 or hemoglobin less than 8 g% Code Visit OBSV E&M: [id number] Initial observation care L3
--- NOTE | 2018-05-25 14:39 | EKG12_ITS ---
Test Reason : CP Blood Pressure : / mmHG Vent. Rate : 080 BPM Atrial Rate : 080 BPM P-R Int : 194 ms QRS Dur : 092 ms QT Int : 420 ms P-R-T Axes : 084 -16 052 degrees QTc Int : 484 ms Normal sinus rhythm Possible Anterolateral infarct , age undetermined Abnormal ECG Confirmed by RENETTA COLLINS, ABRAHAN ([id number]), medical editor RINA VICTOR ([id number]) on 05/27/2018 8:34:13 AM Referred By: Zeferino Jackson Confirmed By:ABRAHAN JACKSON MD
--- NOTE | 2018-05-25 14:45 | CASEMGMT ---
RN CM Assessment Introduced role of RN CM to patient and daughter Alexandria at bedside. Patient is alert, oriented and able to participate in RN CM Assessment. Care providers, pharmacy, and demographics verified. Presentation: CC: KWAME PCP: Dr Kyler Monge Specialists: Pulm- Dr Atwood, Surgeon- Dr Colunga Preferred Pharmacy: [facility] Insurance: Medicare A&B, [place] Prescription Benefit: Yes LNOK: Dtr Alexandria Joseph Living Arrangements: Lives alone in a LL apartment with 4-5 steps to enter. Independent with ambulation and ADL's. Transportation: Patient drives, Dtr Alexandria to drive on DC. DME: CPAP- [employer], Glucometer. DME Preference through [employer]. HHC: None in the past, no preference on Agency. SNF: None in past, No preference on Facility. DC PLAN: Home with no anticipated needs identified at this time. DEBBIE Noguera
[2018-05-25] MEDS: Enoxaparin 40 MG/0.4 ML Syringe SC (16:22)
[2018-05-25 16:30] LABS: Bedside Glucose 137 mg/dL (70-110)
[2018-05-25 16:43] LABS: D-Dimer Quantitative (DVT/PE) 0.54 FEU/ug/m (0.27-0.49)
[2018-05-25] MEDS: Insulin Lispro 100 UNIT/ML INSULN.PEN 38 UNIT SC (16:48)
[2018-05-25] MEDS: Ferrous Sulfate 325 MG Tablet PO (16:51)
[2018-05-25] MEDS: Budesonide Respules 0.5 MG/2 ML AMPUL.NEB. INHALATION (21:07)
[2018-05-25] MEDS: Atorvastatin Calcium 10 MG Tablet 5 MG PO (21:54)
[2018-05-25] MEDS: Amitriptyline 25 MG Tablet PO (21:56)
[2018-05-25 23:06] LABS: Bedside Glucose 200 mg/dL (70-110)
[2018-05-26 01:45] VITALS: BP 146/71; PULSE 68; RESP 18; TEMP 36.5; O2SAT 96
[2018-05-26 03:00] VITALS: PULSE 68
[2018-05-26 05:21] LABS: Absolute Neutrophil Count 4.4 X10^3/uL (2.0-7.7); Basophil# 0.03 X10^3/uL; Basophil% 0.4 % (0-1); Eosinophil# 0.15 X10^3/uL; Eosinophils% 2.1 % (0-5); Hematocrit 37.2 % (37-47); Hemoglobin 11.4 g/dl (12.0-15.0); Lymphocyte % 27.8 % (19-41); Mean Corp Hgb Conc 30.6 g/gl (32-36); Mean Corpuscular Hgb 26.7 pg (27.0-32.0); Mean Corpuscular Volume 87.1 fL (81-99); Mean Platelet Vol. 10.2 fl (6.2-12.0); Monocyte# 0.62 X10^3/uL; Monocyte% 8.6 % (0-10); Neutrophil # 4.37 X10^3/uL (2.7-7.7); Neutrophil % 60.8 % (47-70); Platelet Count 244 K/mm3 (150-450); RBC Distribution Width CV 15.3 % (11.6-14.6); Red Blood Count 4.27 M/mm3 (4.2-5.4); White Blood Count 7.2 K/mm3 (4.4-11.0)
[2018-05-26 05:26] LABS: POSITIVE COUNT NO; POSITIVE DIFFERENTIAL NO; POSITIVE MORPHOLOGY NO
[2018-05-26 05:29] VITALS: BP 157/69; PULSE 66; RESP 18; TEMP 36.4; O2SAT 96
[2018-05-26 05:29] LABS: International Normalized Ratio 1.1; Prothrombin Time (Protime)PT. 13.7 SECONDS (11.7-14.9)
[2018-05-26 05:30] LABS: Partial Thromboplast Time 27.8 Seconds (24.1-36.2)
[2018-05-26] MEDS: Levothyroxine 100 MCG Tablet 200 MCG PO (05:34)
[2018-05-26] MEDS: Aspirin E.C. 81 MG Tablet PO (05:34)
[2018-05-26] MEDS: Losartan Potassium 100 MG Tablet PO (05:34)
[2018-05-26] MEDS: Levothyroxine 25 MCG TABLET PO (05:34)
[2018-05-26 05:39] LABS: Cholesterol 146 mg/dL (200); High Density Lipoprotein 34 mg/dL; T4 Free Direct 1.22 ng/dL (0.76-1.46); Triglycerides 174 mg/dL; Very Low Density Lipoprotein 35 mg/dL (5-40)
--- NOTE | 2018-05-26 05:55 | EKG12_ITS ---
Test Reason : AM EKG Blood Pressure : / mmHG Vent. Rate : 069 BPM Atrial Rate : 069 BPM P-R Int : 202 ms QRS Dur : 094 ms QT Int : 434 ms P-R-T Axes : 049 -10 055 degrees QTc Int : 465 ms Normal sinus rhythm Cannot rule out Anterior infarct , age undetermined Abnormal ECG When compared with ECG of 25-MAY-2018 15:32, MANUAL COMPARISON REQUIRED, DATA IS UNCONFIRMED Confirmed by AYANNA GO ([id number]), proposal editor CELESTINE MICHAUD ([id number]) on 05/30/2018 5:14:50 PM Referred By: Zeferino Jackson Confirmed By:AYANNA GO
[2018-05-26 06:40] LABS: Bedside Glucose 165 mg/dL (70-110)
[2018-05-26 07:53] LABS: Hemoglobin A1c 8.2 % (4.2-6.3)
[2018-05-26] MEDS: Ferrous Sulfate 325 MG Tablet PO (08:21)
[2018-05-26 08:56] VITALS: PULSE 73
--- NOTE | 2018-05-26 09:00 | STRESSREP ---
Stress Test Report Pharmacologic myocardial perfusion stress test. 67-year-old lady with a history of chest pain. Medications: Elavil aspirin Lipitor Lovenox. Stress protocol: Resting EKG demonstrates normal sinus rhythm with a rate of 70 bpm normal intervals are noted resting blood pressure 128/72 mmHg. 0.4 mg of regadenoson was infused per usual protocol followed by rapid intravenous saline flush injection continuous EKG monitoring was performed. The maximum heart rate attained was 83 bpm which was 53% of maximum predicted heart rate the maximum workload was 1 metabolic equivalent. At rest there were no ST or T wave changes noted suggest abnormal flow reserve at peak infusion nonspecific ST-T wave changes were noted with normally the criteria for ischemia. No clinical angina was noted. The resting blood pressure 128/72 with a final blood pressure 130/80 mmHg. Myocardial perfusion protocol. 11.9 mCi of technetium 99m sestamibi was injected at rest. 0.4 mg of regadenoson was infused per usual protocol peak infusion 33.8 mCi of technetium 99m sestamibi was injected stress images were obtained stress and rest images were reconstructed and compared in the short axis vertical and horizontal long axis. Gated images was obtained. Perfusion SPECT analysis: Review of the stress images demonstrate normal uptake of tracer noted in all areas of myocardium the resting images similarly demonstrate normal uptake of tracer noted in all areas of myocardium. Gated SPECT analysis: The gated ejection fraction is noted to be 74%. Conclusion: Normal pharmacologic myocardial perfusion stress test. Preserved ejection fraction.
[2018-05-26 10:00] VITALS: BP 161/68; PULSE 71; RESP 18; TEMP 36.6; O2SAT 97
[2018-05-26] MEDS: Enoxaparin 40 MG/0.4 ML Syringe SC (10:10)
[2018-05-26] MEDS: buPROPion (XL) 300 MG TABLET.XL PO (10:11)
--- NOTE | 2018-05-26 10:42 | DCINST_ITS ---
- Discharge Diagnoses Current Active Problems: Current Active and Chronic Problems (Last Reviewed 04/18/18 @ 13:09 by JUSTIN Branch) Atypical chest pain (Acute) ANISHA (obstructive sleep apnea) (Chronic) Initiating BiPAP 18/14 cm of water Hyperlipidemia (Chronic) Morbid obesity (Chronic) DM2 (diabetes mellitus, type 2) (Chronic) Benign essential HTN (Chronic) You will use the following diet at home:: Calorie/Carbohydrate Controlled (specify 1200, 1400, etc) - 1800 navjot Your food should be the consistency of: Regular Your liquids should be the consistency of: Regular/Thin Discharge Activity: Return to Normal Activity Allergies/Adverse Reactions: Allergies ondansetron HCl [From Zofran (as hydrochloride)] Allergy (Verified 04/18/18 10:53) Rash acetaminophen [From Percocet] Adverse Reaction (Verified 04/18/18 10:53) Rash oxycodone HCl [From Percocet] Adverse Reaction (Verified 04/18/18 10:53) Rash Penicillins [PCN] Adverse Reaction (Verified 04/18/18 10:53) Other states she gets a yeast infection propoxyphene napsylate [From Darvocet-N 100] Adverse Reaction (Verified 04/18/18 10:53) Rash shellfish derived Adverse Reaction (Verified 04/18/18 10:53) Rash Medications to take at Discharge Furosemide 40 mg PO DAILY 08/25/14 Lovastatin [Mevacor] 20 mg PO QHS 08/25/14 Metformin HCl [Glucophage] 1,000 tab PO BIDCM 08/25/14 Insulin Glargine,Hum.rec.anlog [Lantus] 58 unit SQ BID 10/24/15 buPROPion XL [Wellbutrin Xl] 300 mg PO DAILY 02/10/16 amitriptyline 25 mg tablet 25 mg PO QHS 30 Days #30 10/11/17 insulin aspart U- 100 100 unit/mL subcutaneous pen 38 unit SC TIDCM ml 10/11/17 sitagliptin 50 mg tablet 50 mg PO QHS 10/11/17 albuterol sulfate HFA 90 mcg/actuation aerosol inhaler 1 puff INHALATION Q6H PRN 03/29/18 Ferrous Sulfate 325 mg PO BID 05/25/18 Fluticasone Furoate [Arnuity Ellipta] 1 inh INHALATION DAILY 05/25/18 Levothyroxine Sodium [Synthroid] 25 mcg PO DAILY 05/25/18 Levothyroxine Sodium [Synthroid] 200 mcg PO DAILY 05/25/18 Losartan Potassium 100 mg PO DAILY 05/25/18 Aspirin E.C. [Ecotrin] 81 mg PO DAILY@0800 tablet 05/26/18 Primary Care Physician: Kyler Monge III, MD [Primary Care Provider] - Please follow up with your Primary Care Physician in: next visit Test Results: Test results from this visit will be discussed in further detail at your follow- up appointment, if applicable.
[2018-05-26 11:16] VITALS: BP 161/68; PULSE 71; RESP 18; TEMP 36.6; O2SAT 97
--- NOTE | 2018-05-26 11:23 | PHA.DC.MR ---
Pharmacy Service has performed discharge medication reconciliation for this patient. No new medications for homegoing, previous home medications reviewed. The patient's discharge medication list was reviewed for discrepancies and discrepancies were resolved. Home Medications Furosemide 40 mg PO DAILY 08/25/14 Lovastatin [Mevacor] 20 mg PO QHS 08/25/14 Metformin HCl [Glucophage] 1,000 tab PO BIDCM 08/25/14 Insulin Glargine,Hum.rec.anlog [Lantus] 58 unit SQ BID 10/24/15 buPROPion XL [Wellbutrin Xl] 300 mg PO DAILY 02/10/16 amitriptyline 25 mg tablet 25 mg PO QHS 30 Days #30 10/11/17 insulin aspart U- 100 100 unit/mL subcutaneous pen 38 unit SC TIDCM ml 10/11/17 sitagliptin 50 mg tablet 50 mg PO QHS 10/11/17 albuterol sulfate HFA 90 mcg/actuation aerosol inhaler 1 puff INHALATION Q6H PRN 03/29/18 Ferrous Sulfate 325 mg PO BID 05/25/18 Fluticasone Furoate [Arnuity Ellipta] 1 inh INHALATION DAILY 05/25/18 Levothyroxine Sodium [Synthroid] 25 mcg PO DAILY 05/25/18 Levothyroxine Sodium [Synthroid] 200 mcg PO DAILY 05/25/18 Losartan Potassium 100 mg PO DAILY 05/25/18 Aspirin E.C. [Ecotrin] 81 mg PO DAILY@0800 tablet 05/26/18
--- NOTE | 2018-05-29 17:10 | DS.PCM_ITS ---
Discharge Date and Diagnosis Date of Admission: 05/25/18 Date of Discharge: 05/26/18 - Primary Discharge Diagnosis #1 noncardiac chest pain #2 stage III chronic kidney disease secondary to type 2 diabetes #3 type 2 diabetes #4 obstructive sleep apnea - Secondary Discharge Diagnosis Chronic Problems (Last Reviewed 04/18/18 @ 13:09 by JUSTIN Branch) Restrictive ventilatory defect (Chronic) ANISHA (obstructive sleep apnea) (Chronic) Initiating BiPAP 18/14 cm of water Mid back pain on left side (Chronic) Hyperlipidemia (Chronic) Uterine cancer (Chronic) Morbid obesity (Chronic) Dyslipidemia (Chronic) DM2 (diabetes mellitus, type 2) (Chronic) Benign essential HTN (Chronic) Hospital Course and Treatment Operations: None Procedures: Nuclear stress test Summary of Care Provided: The patient is a 67 year old F who was seen in the emergency room at [facility] with chief complaint of chest pain. Workup in the emergency room included cardiac isoenzymes which were normal, EKG showed no evidence of ischemic changes and patient's chest x-ray was unremarkable. Patient was placed in observation status on PCU, cardiac enzymes were cycled and these remained negative. Patient underwent a resting pharmacological nuclear stress test which did not show any evidence of ischemia. On 05/26/18, patient was seen and examined: On examination she appeared in good health and spirits. Vital signs as documented. Skin warm and dry and without overt rashes. Neck without JVD. Lungs clear. Heart exam notable for regular rhythm, normal sounds and absence of murmurs, rubs or gallops. Abdomen unremarkable and without evidence of organomegaly, masses, or abdominal aortic enlargement. Extremities nonedematous. Neuro: Cranial nerves II through XII are grossly intact, no focal motor deficits were noted, sensation to light touch and pinprick is intact. Psych: Patient is alert and oriented x3, she does not appear anxious or depressed On 05/26/18, patient was seen and examined and felt to be in stable condition for discharge home - Physical Exam Vital Signs Temp Pulse Resp BP Pulse Ox 97.8 F 71 18 161/68 H 97 05/26/18 11:16 05/26/18 11:16 05/26/18 11:16 05/26/18 11:16 05/26/18 11:16 Oxygen Flow Rate (L/min) 2 Oxygen Delivery Method Room Air Weight: 131 kg Body Mass Index (BMI) 49.6 Discharge Activity: Return to Normal Activity Home Medications: Medications to take at Discharge Furosemide 40 mg PO DAILY 08/25/14 Lovastatin [Mevacor] 20 mg PO QHS 08/25/14 Metformin HCl [Glucophage] 1,000 tab PO BIDCM 08/25/14 Insulin Glargine,Hum.rec.anlog [Lantus] 58 unit SQ BID 10/24/15 buPROPion XL [Wellbutrin Xl] 300 mg PO DAILY 02/10/16 amitriptyline 25 mg tablet 25 mg PO QHS 30 Days #30 10/11/17 insulin aspart U- 100 100 unit/mL subcutaneous pen 38 unit SC TIDCM ml 10/11/17 sitagliptin 50 mg tablet 50 mg PO QHS 10/11/17 albuterol sulfate HFA 90 mcg/actuation aerosol inhaler 1 puff INHALATION Q6H PRN 03/29/18 Ferrous Sulfate 325 mg PO BID 05/25/18 Fluticasone Furoate [Arnuity Ellipta] 1 inh INHALATION DAILY 05/25/18 Levothyroxine Sodium [Synthroid] 25 mcg PO DAILY 05/25/18 Levothyroxine Sodium [Synthroid] 200 mcg PO DAILY 05/25/18 Losartan Potassium 100 mg PO DAILY 05/25/18 Aspirin E.C. [Ecotrin] 81 mg PO DAILY@0800 tablet 05/26/18 Primary Care Physician: Kyler Monge III, MD [Primary Care Provider] - Please follow up with your Primary Care Physician in: next visit Disposition: Home Minutes spent on discharge:: 25 Patient Condition:: Stable Medical Necessity - Tobacco Use Smoking Status: Never smoker Tobacco Use: Non-smoker Meaningful Use Info Meaningful Use Diagnoses (Choose all that apply): None applicable Code Visit OBSV E&M: 30429 Observation care discharge
== END 2018-05-26 10:41 | disposition home or self-care (01) ==
LOC: ED 13:32 → PCU 13:51
PROVIDERS: Admitting Provider Internal Medicine; Emergency Provider Emergency Medicine; Family Provider Family Medicine; PCP Family Medicine; Referring Provider Internal Medicine; Visit Provider Internal Medicine
DX: R07.89 Other chest pain (principal); E78.5 Hyperlipidemia, unspecified; G47.33 Obstructive sleep apnea (adult) (pediatric); I25.2 Old myocardial infarction; Z71.3 Dietary counseling and surveillance; Z85.42 Personal history of malignant neoplasm of other parts of uterus; Z79.899 Other long term (current) drug therapy; Z79.51 Long term (current) use of inhaled steroids; Z79.4 Long term (current) use of insulin; Z68.43 Body mass index [BMI] 50.0-59.9, adult; E11.22 Type 2 diabetes mellitus with diabetic chronic kidney disease; I12.9 Hypertensive chronic kidney disease with stage 1 through stage 4 chronic kidney disease, or unspecified chronic kidney disease; N18.3 Chronic kidney disease, stage 3 (moderate); E03.9 Hypothyroidism, unspecified; E66.2 Morbid (severe) obesity with alveolar hypoventilation
CPT/HCPCS: 36415; 71045; 78452; 80048; 80061; 82962; 83036; 84439; 84443; 84484; 85025; 85379; 85610; 85730; 93005; 93017; 94640; 96372; 96374; 99218; 99285; A9500; A4216; G0378; J2785

== ENCOUNTER → 2019-04-10 13:29 | Outpatient (CLI) | payer MEDICARE, BC, SELFPAY ==
[2019-04-10 11:32] VITALS: BMI 47.7
[2019-04-10 13:53] LABS: Mucous, Urine 0 SEEN /hpf (<or=2+); Red Blood Cells-Urine 0 SEEN /hpf (0-5)
[2019-04-10 14:05] LABS: Color, Urine Yellow (Yellow); Glucose, Dipstick 250 mg/dl (Normal); Ketone-Dipstick Negative (Negative); Leukocyte Esterase-Dipstick 100 /ul (Negative); Nitrite-Dipstick Negative (Negative); Occult Blood-Urine Negative /ul (Negative); Protein-Dipstick Negative (Negative); Urine Bilirubin Dipstick Negative (Negative); Urine Clarity Sl. Cloudy (Clear); Urine Urobilinogen Normal (Normal)
[2019-04-10 14:13] LABS: White Blood Cells 10-25 SEEN /hpf (0-5)
[2019-04-10 14:14] LABS: Bacteria 2+ /hpf (None Seen); Squamous Epithelial Cells - UA 0-5 SEEN /hpf (5-10)
== END ==
PROVIDERS: PCP Family Medicine; Referring Provider Physician Assistant Surgical; Visit Provider Physician Assistant Surgical
DX: N39.0 Urinary tract infection, site not specified (principal); R30.0 Dysuria; M54.5 Low back pain
CPT/HCPCS: 81001; 87077; 87086; 87088; 87186

== ENCOUNTER → 2019-05-08 14:56 | Outpatient (CLI) | payer MEDICARE, BC, SELFPAY ==
[2019-05-08 14:49] VITALS: BMI 47.7
--- NOTE | 2019-05-08 14:57 | RAD_ITS ---
EXAM DESCRIPTION: Left shoulder CLINICAL HISTORY: 68 years Female, FALL. LEFT SHOULDER AND CLAVICLE PAIN COMPARISON: Left clavicle obtained on 05/08/2019 FINDINGS: Studies of the left shoulder shows no evidence of fracture, dislocation, or bony destruction. There is severe degenerative arthritis involving the left carotid territory. In addition, there are 2 amorphous calcifications noted over the tendinous insertions of the rotator cuff consistent with calcific bursitis. RAD/Shoulder min 2 Views IMPRESSION: 1. Degenerative arthritis of the left acromioclavicular joint. 2. Amorphous calcifications are noted projected over the left humeral head consistent with calcific bursitis. Electronically Signed: Kehinde Omalley, at 15:55 EST Tel , Service support ,
--- NOTE | 2019-05-08 15:00 | RAD_ITS ---
STUDY: X-RAY - LEFT CLAVICLE REASON FOR EXAM: Female, 68 years old. FALL. LEFT SHOULDER AND CLAVICLE PAIN TECHNIQUE: 2 view(s) of the clavicle. COMPARISON: None. FINDINGS: The left clavicle shows no evidence of fracture. There is significant degenerative arthritis of the left acromioclavicular joint. Normal visualized sternoclavicular articulation. Normal visualized pulmonary apex. RAD/Clavicle IMPRESSION: Degenerative arthritis of the left acromioclavicular joint Electronically Signed: Kehinde Omalley, at 15:39 EST Tel , Service support ,
== END ==
PROVIDERS: PCP Family Medicine; Referring Provider Physician Assistant Surgical; Visit Provider Physician Assistant Surgical
DX: S40.012A Contusion of left shoulder, initial encounter (principal)
CPT/HCPCS: 73000; 73030

== ENCOUNTER 2019-08-14 07:06 | Day surgery (SDC) | payer MEDICARE, BC, SELFPAY ==
[2019-08-10 13:19] VITALS: BMI 47.7
--- NOTE | 2019-08-11 09:22 | HP_ITS ---
Intake Vital Signs 08/10/19 Height 5 ft 4 in 08/10/19 Weight: 270 lb 08/10/19 BMI 46.3 08/10/19 BP 153/78 H 08/10/19 Blood Pressure Location Rt brachial 08/10/19 Position Sitting 08/10/19 Respiration 16 08/10/19 Pulse 71 08/10/19 Pulse Source Monitor 08/10/19 Temp 98.9 F 08/10/19 Temp Source Temporal 08/10/19 Pulse Oximetry (%) 96 08/10/19 Oxygen Delivery Method room air Intake Visit Reasons: C-Scope Consult Family HX Chief Complaint: Dysuria Nurse Recruiter Required: No Is patient in pain?: Yes (Stomach ache) Allergies ondansetron HCl [From Zofran (as hydrochloride)] Allergy (Verified 08/10/19 13:15) Rash acetaminophen [From Percocet] Adverse Reaction (Verified 08/10/19 13:15) Rash oxycodone HCl [From Percocet] Adverse Reaction (Verified 08/10/19 13:15) Rash Penicillins [PCN] Adverse Reaction (Verified 08/10/19 13:15) Other propoxyphene napsylate [From Darvocet-N 100] Adverse Reaction (Verified 08/10/19 13:15) Rash shellfish derived Adverse Reaction (Verified 08/10/19 13:15) Rash Medications Lovastatin [Mevacor] 20 mg PO QHS 08/25/14 [History Confirmed 08/10/19] Insulin Glargine,Hum.rec.anlog [Lantus] 58 unit SQ BID 10/24/15 [History Confirmed 08/10/19] buPROPion XL [Wellbutrin Xl] 300 mg PO DAILY 02/10/16 [History Confirmed 08/10/19] insulin aspart U-100 100 unit/mL (3 mL) subcutaneous pen 38 unit SC TIDCM ml 10/11/17 [History Confirmed 08/10/19] albuterol sulfate 90 mcg/actuation aerosol inhaler 1 puff INHALATION Q6H PRN 03/29/18 [History Confirmed 08/10/19] Fluticasone Furoate [Arnuity Ellipta] 1 inh INHALATION DAILY 05/25/18 [History Confirmed 08/10/19] Losartan Potassium 100 mg PO DAILY 05/25/18 [History Confirmed 08/10/19] metformin 500 mg tablet 500 mg PO BIDCM tab 11/28/18 [History Confirmed 08/10/19] levothyroxine 300 mcg tablet 300 mcg PO DAILY tab 08/10/19 [History Confirmed 08/10/19] [facility] Medical History HTN (hypertension) (Chronic) Cancer (Acute) Kidney disease (Acute) Hemorrhoids (Acute) Shoulder pain (Acute) Diabetes (Acute) Fatigue (Acute) Diarrhea (Acute) Asthma (Acute) Thyroid disease (Acute) Back pain (Acute) Surgical History History of esophagogastroduodenoscopy (EGD) (Acute) S/P colonoscopy (Acute) S/P wrist surgery (Acute) S/P hysterectomy (Acute) Stone, kidney (Acute) Status post laparoscopic cholecystectomy (Acute) Family History Father Colon cancer Grandmother No problems noted. Mother Colon cancer Cancer Heart disease CVA (cerebral vascular accident) Diabetes Thyroid disorder Hypertension Brother Colon cancer Social History (Updated 08/11/19 @ 09:[address] Jad Colunga MD) Smoking Status: Never smoker second hand exposure: No alcohol intake: never substance use type: does not use caffeine: Yes what type of physical activity do you participate in: none frequency: does not exercise HPI HPI Surgical H&P: Yes HPI: NIMO MCCLOUD, is a 68 F who presents to the office today for Evaluation for endoscopy. Patient has been noticing abdominal bloating generalized abdominal pain after she has been eating. She has had significant eructation as well as constipation but she has had no Vomiting but has had nausea. This is been going on for the last 2 months. Colonoscopy back in 2017 where she had a cecal polyp removed however the polyp was not retrieved and therefore no pathology report was able to be given. She does have a significant family history of colon cancer. I recently performed an upper endoscopy on her on March 2018. This was done for anemia. She was noted to have small amount of residual food located within the gastric fundus no gross lesions were identified biopsy for H. pylori was negative. Her Z line was variable and was at 40 cm and there were no biopsies needed at that time.Biopsies of the duodenum and stomach showed mild chronic inflammation.Biopsies of the duodenum and stomach showed mild chronic inflammation. ROS General General: Yes weight change and fatigue; no appetite, colon cancer, breast cancer or weakness HEENT HEENT: No difficulty swallowing, eye injury, eye surgery, swollen glands or hoarseness Endo Endocrine: Yes thyroid disease and diabetes mellitus; no thyroid cancer, Hair loss, heat intolerance or cold intolerance Skin Skin: No rash or changing moles Musc Musculoskeletal: Yes back problems and arthritis; no rheumatoid arthritis, gout or joint pain Cardio Cardiovascular: Yes high blood pressure; no murmur, pacemaker, heart disease, atrial fibrillation, heart attack, heart stent, palpitations, shortness of breat with exertion or chest pain Psych Psychiatric: No depression, anxiety or hearing voices Resp Respiratory: No shortness of breath, Yes sleep apnea, No cough, No COPD, Yes asthma, No emphysema, No wheezing Gastro Gastrointestinal: Yes abdominal pain, No nausea or vomiting, No diarrhea, No constipation, No blood in stool, No acid reflux, No hemorrhoids, No ulcers, No gallbladder problem, No black,tarry stools Alireza Hematologic: No blood thinners, No blood disorders, No bleeding, Yes anemia, No blood clots Neuro Neurologic: No system reviewed and no additional complaints, except as docu, No as per HPI, No abnormal walking, No abnormal hearing, No abnormal movements, No abnormal speech, No behavioral changes, No burning sensations, No confusion, No seizure-like activity, No unsteadiness, No dizziness, No localized weakness, No frequent falls, No headache(s), No lack of coordination, No loss of vision, No memory loss, No numbness, No other visual disturbances, No radiating pain, No restless legs, No sensory deficit, No fainting, No tingling, No tremor(s), No weakness, No other Exam Const General: no acute distress, well developed, well hydrated Orientation: oriented to person, oriented to place, oriented to time [facility] Head: normocephalic, atraumatic Ears: external ears normal Mouth: moist mucous membranes Eyes Sclera: sclerae normal Pupils: normal by confrontation Neck Neck: no lymphadenopathy noted Neck mass: No Thyroid: thyroid normal, symmetrical Chest Chest palpation & inspection: normal inspection of the chest Resp Effort & Inspection: normal respiratory effort Auscultation: clear to auscultation bilaterally Percussion: percussion normal Cardio Rate: regular rate Rhythm: regular rhythm Heart Sounds: no murmurs GI Inspection: obesity Palpation: soft, no hepatosplenomegaly, no masses, nontender Rectal Exam: other Other: Rectal exam deferred. Extrem General: normal to inspection, no clubbing, cyanosis or edema Assessment & Plan Problems 1. Generalized abdominal pain R10.84 2. Abdominal bloating R14.0 3. Constipation, unspecified constipation type K59.00 Plan I have discussed the above with the patient. The patient is adamant about having a colonoscopy. I have offered the patient colonoscopy for evaluation. I have explained the risks/benefits of the procedure and described the procedure. I have discussed the risks with the patient, including but not limited to: infection, bleeding, perforation of the GI tract requiring emergency surgery, inability to complete the procedure, injury to any internal organs, complications of anesthesia, etc. - the patient understands and agrees to proceed. I have answered all the patient's questions to the patient's satisfaction and the patient has no further questions. The patient has been given instructions for the colon cleansing preparation. In addition I think the patient would benefit from obtaining a gastric emptying study. Patient understands that insurance may not cover the colonoscopy and I informed her that she would be required to pay the full philip for it. Orders Orders: Gastric Emptying Study 08/10/19 R14.0 CORONAVIRUS 19, SHANTELLE 08/13/19 Z11.59 Coding Level of Care Code Off vis,est,level 3 Diagnoses Generalized abdominal pain R10.84 Abdominal bloating R14.0 Constipation, unspecified constipation type K59.00 ??Constipation type: unspecified constipation type 08/11/19 0922 <Electronically signed by Jad ortega MD> Date _ Jad Colunga MD I have re-examined the patient. There are no clinical changes since date of exam.
[2019-08-14] VITALS (7 sets, daily range): BP systolic 135–168; BP diastolic 58–84; PULSE 67–72; RESP 16–18; TEMP 36.2–36.4; O2SAT 99–100; BMI 47.9
--- NOTE | 2019-08-14 | COLBX_PTH ---
PATIENT: NIMO MCCLOUD LOC: EN U#:[id number] AGE/SX: 68/F ROOM: RE08/14/[address]: Dr. Jad Colunga MD : 1950 BED: DIS: 08/14/2019 SPEC #: [id number] RECD: 08/14/19 12:17 STATUS: SIMONA REDarleen #: [id number] EDELMIRA: 08/14/19 00:[address]: Jad Colunga DEPT: SURGICAL PATHOLOGY RECD BY: Enrique Barrera ENTERED: 08/14/19 12:17 SP TYPE: COLON BX OTHR DR: Dr. Kyler Monge III, MD Tissues: COLON BIOPSY Procedures: Surgery Specimen Level IV HEADER OPERATION: Colonoscopy (MAC) PRE-OP DIAGNOSIS: Abdomen pain, bloating, constipation TISSUE SUBMITTED: Random colonic biopsy MICROSCOPIC DIAGNOSIS Colon, random biopsy: Fragments of colonic mucosa, no pathologic diagnosis. SJ:jorge 08/15/19 MICROSCOPIC DESCRIPTION Slides are reviewed. GROSS DESCRIPTION Received in fixative is one container labeled with the patient's name and designated random colon biopsy. The specimen consists of multiple irregular fragments of light seay soft tissue that in aggregate measure 2.5 x 1 x 0.1 cm. The specimen is totally submitted in one cassette. / AM:jorge 08/14/19 TC:4 CPT: 77707
[2019-08-14] MEDS: Lactated Ringers 1,000 ML 100 ML IV (07:48)
[2019-08-14 07:55] LABS: Bedside Glucose 95 mg/dL (70-110)
--- NOTE | 2019-08-14 08:36 | OP.CCLET_ITS ---
08/14/2019 Kyler Monge [address] [place] [address] Re : Colonoscopy procedure for Mana Martínez Dear Dr. Monge This procedure was performed on Wednesday, August 14, 2019. My impressions and recommendations are as follows: Impressions : - Non-bleeding internal hemorrhoids. - Diverticulosis in the sigmoid colon and in the descending colon. No specimens collected. - The examination was otherwise normal. - Multiple random biopsies were obtained in the entire colon. Recommendations : - Discharge patient to home. - Resume previous diet. - Continue present medications. - Await pathology results. - Repeat colonoscopy in 5 years for surveillance. - Return to my office in 1 week. My findings are described in the full procedure note, which is enclosed. If I can be of further assistance, please feel free to contact me at Doctor phone number(s): , Fax: [phone], Work: . Sincerely, MD Jad Blum MD 08/14/2019 8:35:51 AM This report has been signed electronically.
--- NOTE | 2019-08-14 08:36 | OP.COLON_ITS ---
Patient Name: Mana Martínez Procedure Date: 08/14/2019 8:02 AM Date of : 1950 Age: 68 Procedure: Colonoscopy Indications: Generalized abdominal pain, Constipation Providers: Jad Colunga MD Medicines: See the Anesthesia note for documentation of the administered medications Patient Profile: This is a 68 year old female. Refer to note in patient chart for documentation of history and physical. Last Colonoscopy: 2016. Complications: No immediate complications. Procedure: Pre-Anesthesia Assessment: - Prior to the procedure, a History and Physical was performed, and patient medications and allergies were reviewed. The patient's tolerance of previous anesthesia was also reviewed. The risks and benefits of the procedure and the sedation options and risks were discussed with the patient. All questions were answered, and informed consent was obtained. Prior Anticoagulants: The patient has taken no previous anticoagulant or antiplatelet agents. ASA Grade Assessment: III - A patient with severe systemic disease. After reviewing the risks and benefits, the patient was deemed in satisfactory condition to undergo the procedure. After I obtained informed consent, the scope was passed under direct vision. Throughout the procedure, the patient's blood pressure, pulse, and oxygen saturations were monitored continuously. The adult colonoscope was introduced through the anus and advanced to the cecum, identified by appendiceal orifice and ileocecal valve. The colonoscopy was performed without difficulty. The patient tolerated the procedure well. The quality of the bowel preparation was adequate to identify polyps 6 mm and larger in size. Scope In: 8:13:24 AM Scope Withdrawal Time 0 hours 9 minutes 58 seconds Scope Out: 8:29:57 AM Total Procedure Duration Time 0 hours 16 minutes 33 seconds Findings: Non-bleeding internal hemorrhoids were found during retroflexion. The hemorrhoids were mild and small. A few small-mouthed diverticula were found in the sigmoid colon and descending colon. No biopsies or other specimens were collected for this exam. The exam was otherwise without abnormality. Multiple random biopsies were obtained with cold forceps for histology in the entire colon. Impression: - Non-bleeding internal hemorrhoids. - Diverticulosis in the sigmoid colon and in the descending colon. No specimens collected. - The examination was otherwise normal. - Multiple random biopsies were obtained in the entire colon. Recommendation: - Discharge patient to home. - Resume previous diet. - Continue present medications. - Await pathology results. - Repeat colonoscopy in 5 years for surveillance. - Return to my office in 1 week. Procedure Code(s): --- Professional --- 19279, Colonoscopy, flexible; with biopsy, single or multiple Diagnosis Code(s): --- Professional --- K64.8, Other hemorrhoids R10.84, Generalized abdominal pain K59.00, Constipation, unspecified K57.30, Diverticulosis of large intestine without perforation or abscess without bleeding CPT copyright 2017 [employer]. All rights reserved. The codes documented in this report are preliminary and upon cloud systems administrator review may be revised to meet current compliance requirements. MD Jad Blum MD 08/14/2019 8:35:51 AM This report has been signed electronically. Number of Addenda: 0 Note Initiated On: 08/14/2019 8:02 AM
== END 2019-08-14 09:29 | disposition home or self-care (01) ==
LOC: EN 07:09 → AC 07:09
PROVIDERS: PCP Family Medicine; Referring Provider Family Medicine; Visit Provider Surgery
PROC: 0DJD8ZZ Inspection of Lower Intestinal Tract, Via Natural or Artificial Opening Endoscopic (ICD-10-PCS; CPT 45378; principal; 2019-08-14 08:10)
DX: K64.8 Other hemorrhoids (principal); K57.30 Diverticulosis of large intestine without perforation or abscess without bleeding; Z11.59 Encounter for screening for other viral diseases; I10 Essential (primary) hypertension; E11.9 Type 2 diabetes mellitus without complications; M19.90 Unspecified osteoarthritis, unspecified site; G47.30 Sleep apnea, unspecified; G25.81 Restless legs syndrome; K21.9 Gastro-esophageal reflux disease without esophagitis; E78.00 Pure hypercholesterolemia, unspecified; J45.909 Unspecified asthma, uncomplicated; E06.9 Thyroiditis, unspecified; Z86.2 Personal history of diseases of the blood and blood-forming organs and certain disorders involving the immune mechanism; Z85.42 Personal history of malignant neoplasm of other parts of uterus; Z79.4 Long term (current) use of insulin; Z79.84 Long term (current) use of oral hypoglycemic drugs; Z79.899 Other long term (current) drug therapy
CPT/HCPCS: 45380; 82962; 87635; 88305; G2023; J7120; J1610; U0004

== ENCOUNTER → 2019-08-21 | Outpatient (CLI) | payer MEDICARE, BC, SELFPAY ==
[2019-08-10 13:19] VITALS: BMI 47.7
[2019-08-14 07:34] VITALS: BMI 47.9
--- NOTE | 2019-08-21 09:47 | NM_ITS ---
CLINICAL: 68-year-old diabetic female with reported history of abdominal pain and bloating. SEMI-SOLID PHASE 99m Tc SULFUR COLLOID GASTRIC EMPTYING STUDY COMPARISON: None available FINDINGS: The patient was administered 1.0 mCi of 99m Tc sulfur colloid mixed with oatmeal and consumed per os. Image acquisitions in the anterior-posterior projections for a total of 60 minutes. There is prompt visualization of the stomach. There is no gastroesophageal reflux identified. First order kinetics are maintained throughout the duration of the acquisitions. The T1/2 linear fit was calculated to be 153.08 minutes, (Normal: 12-56 minutes). NM/Gastric Emptying Study IMPRESSION: 1. ABNORMAL 99m Tc sulfur colloid semi-solid phase (oatmeal) gastric emptying imaging examination. A. There is delayed semi-solid phase gastric emptying compared to normal controls with maintained first order kinetics throughout all components of the examination. (Wanda roger al, J Nucl Med Tech 38: 186, 2010). Electronically Signed: Raudel Ramos DO at 22:38 EDT Tel , Service support ,
== END | disposition home or self-care (01) ==
LOC: NM 09:47
PROVIDERS: PCP Family Medicine; Referring Provider Physician Assistant; Visit Provider Physician Assistant
DX: R14.0 Abdominal distension (gaseous) (principal)
CPT/HCPCS: 78264; A9541

== ENCOUNTER 2019-09-09 22:26 | Emergency (ER) | payer MEDICARE, BC, SELFPAY ==
[2019-08-14 07:34] VITALS: BMI 47.9
[2019-09-09 22:27] VITALS: BP 156/80; PULSE 67; RESP 15; TEMP 36.5; O2SAT 99; BMI 48.4
--- NOTE | 2019-09-09 22:43 | ED.DCSUM_ITS ---
History of Present Illness Chief Complaint: Complaint Informant: Patient Onset: Days Context: Gradual Onset Timing: Waxes and wanes Current Severity: Mild Maximum Severity: Moderate Narrative: Patient presents with low back pain along with urinary frequency and urgency. She does report some mild nausea. She is had chills but no fever. She believes she may have a kidney infection. She has a history of kidney stones but states this pain is not similar. - Past Medical History (1) Asthma Status: Chronic (2) Diabetes Status: Chronic (3) S/P hysterectomy Status: Chronic (4) Status post laparoscopic cholecystectomy Status: Chronic (5) Stone, kidney Status: Chronic (6) Benign essential HTN Status: Chronic (7) Dyslipidemia Status: Chronic (8) Uterine cancer Status: Chronic Past Medical History - Allergies and Home Meds Allergies/Adverse Reactions: Allergies ondansetron HCl [From Zofran (as hydrochloride)] Allergy (Verified 09/09/19 22:30) Rash acetaminophen [From Percocet] Adverse Reaction (Verified 09/09/19 22:30) Rash oxycodone HCl [From Percocet] Adverse Reaction (Verified 09/09/19 22:30) Rash Penicillins [PCN] Adverse Reaction (Verified 09/09/19 22:30) Other states she gets a yeast infection propoxyphene napsylate [From Darvocet-N 100] Adverse Reaction (Verified 09/09/19 22:30) Rash shellfish derived Adverse Reaction (Verified 09/09/19 22:30) Rash Primary Care Physician: Kyler Monge III, MD [Primary Care Provider] - Prior records reviewed: Yes Surgical History: cholecystectomy, hysterectomy - With bilateral salpingo- oophorectomy, - Smoking Status: Never smoker - Family History Maternal Family History: Family History (Last Reviewed 08/28/19 @ 12:50 by Johanny Dior) Father Colon cancer Grandmother No problems noted. Mother Colon cancer Cancer Heart disease CVA (cerebral vascular accident) Diabetes Thyroid disorder Hypertension Brother Colon cancer Family History: Reports: Heart Disease, No pertinent history Review of Systems General: Denies: Chills, Fever Eyes: Denies: Visual changes - bilaterally ENT: Denies: Bilateral ear pain Cardiovascular: Denies: Chest pain Respiratory: Denies: Dyspnea, Cough Gastrointestinal: Reports: Nausea. Denies: Abdominal pain, Vomiting, Diarrhea Genitourinary: Reports: Frequency Musculoskeletal: Reports: Back pain. Denies: Extremity Pain Skin: Denies: Rash Neurological: Denies: Headache Hematologic: Denies: Easy bruising, Easy bleeding Allergy: Denies: Uticaria Physical Exam Vital Signs/Narrative: Vital Signs Temp Pulse Resp BP Pulse Ox 09/09/19 22:27 97.7 F L 67 15 156/80 H 99 Inital Vital Signs reviewed: Yes General: Well nourished, Well developed Head: Normocephalic ENT: Moist mucous membranes Neck: Supple Cardiovascular: Regular rate, Regular rhythm Respiratory: No distress, CTA bilaterally Abdomen: Soft, Nontender Back: - - Reproducible tenderness in the lumbar paraspinal muscles, worse on the left. No true CVA tenderness.. Negative for: CVA tenderness Extremities: Nontender Skin: Normal color Neurological: Alert, Oriented x3 Psychological: Normal affect Diagnostic/Tx/Re-eval Impressions Abdomen/Pelvis CT 09/09/19 23:02 IMPRESSION: Body wall edema. Coronary artery atherosclerotic disease. No intra-abdominal acute disease perceived. Individualized dose optimization techniques were used for this CT. at 2357 Reported and signed by: Vj Owens MD Electronically Signed: Vj Owens MD at 23:56 EDT Tel , Service support , 09/09/19 23:02 Abdomen/Pelvis without Cont [CT] Stat Laboratory Results 09/09/19 09/09/19 09/09/19 22:50 23:31 23:31 WBC 9.3 RBC 5.00 Hgb 12.9 Hct 42.9 MCV 85.8 MCH 25.8 L MCHC 30.1 L RDW Std Deviation 42.3 RDW Coeff of Tara 13.6 Plt Count 263 MPV 10.3 Immature Gran % (Auto) 0.300 Neut % (Auto) 60.7 Lymph % (Auto) 27.7 Crockett % (Auto) 8.9 Eos % (Auto) 2.0 Baso % (Auto) 0.4 Absolute Neuts (auto) 5.6 Absolute Lymphs (auto) 2.58 Nucleated RBC % 0 Sodium 140 Potassium 4.0 Chloride 107 Carbon Dioxide 28.0 Anion Gap 5 BUN 15 Creatinine 1.17 H Estim Creat Clear Calc 39.13 Est GFR (MDRD) Af Amer 59 L Est GFR (MDRD) Non-Af 49 L BUN/Creatinine Ratio 12.8 Glucose 107 H Calcium 9.2 Urine Color Yellow Urine Clarity Sl. Cloudy Urine pH 6.0 Ur Specific Foley 1.015 Urine Protein Negative Urine Glucose (UA) Normal Urine Ketones Negative Urine Occult Blood Negative Urine Nitrite Negative Urine Bilirubin Negative Urine Urobilinogen Normal Ur Leukocyte Esterase Negative Urine RBC 0 SEEN Urine WBC 0 SEEN Ur Squamous Epith Cells 0-5 SEEN Urine Bacteria RARE Urine Mucus 0 SEEN - Medical Decision Making Patient was given a tab of [place] and Phenergan for pain and nausea. On repeat evaluation she is resting comfortably. Patient was holding her left flank and describing the area of pain. She does have reproducible tenderness in the left lumbar paraspinal muscles. She may have nerve irritation wrapping around to the left lower quadrant. CT scan does not reveal acute cause of her symptoms. Lab work and urinalysis are unremarkable. Patient will follow bland diet. She will be given short course of [place] and Phenergan at home for symptoms. She is to follow-up with her PCP and was given return instructions. ED Disposition - Plan for ED Patient: Disposition: Home or Assisted Living Diagnosis: Flank pain Instructions: ED Flank Pain Uncertain Cause Prescriptions: Hydrocodone Bitart/Apap 5-325 [[place] 5MG-325MG] 1 tablet PO Q6H PRN PRN 3 Days #10 tablet PRN Reason: Pain proMETHazine tablet [Phenergan] 25 mg PO Q6H PRN PRN #10 tablet PRN Reason: Nausea Referrals: Kyler Monge III, MD [Primary Care Provider] - 3-5 Days if not improving
[2019-09-09 22:54] LABS: Mucous, Urine 0 SEEN /hpf (<or=2+); Red Blood Cells-Urine 0 SEEN /hpf (0-5); White Blood Cells 0 SEEN /hpf (0-5)
[2019-09-09 22:58] LABS: Color, Urine Yellow (Yellow); Glucose, Dipstick Normal (Normal); Ketone-Dipstick Negative (Negative); Leukocyte Esterase-Dipstick Negative /ul (Negative); Nitrite-Dipstick Negative (Negative); Occult Blood-Urine Negative /ul (Negative); Protein-Dipstick Negative (Negative); Specific Gravity, Urine 1.015 (1.002-1.030); Urine Bilirubin Dipstick Negative (Negative); Urine Clarity Sl. Cloudy (Clear); Urine Urobilinogen Normal (Normal)
--- NOTE | 2019-09-09 23:02 | CT_ITS ---
HISTORY: LOWER BACK PAIN WITH URINARY FREQUENCY, NAUSEA, HX UTERINE CA, HYSTERECTOMY, HTN, DIAB, KS TECHNIQUE: Helically acquired images were obtained of the abdomen and pelvis without oral or IV contrast. A radiation dose optimization technique was used for this scan. COMPARISON: Of the [address] scans of the abdomen and pelvis performed at this institution, the most recent comparison study is from October 24, 2015. Study before that is August 25, 2014. Study before that is April 24, 2014. The first CT scan of the abdomen and pelvis available for comparison with images available is from May 21, 2013. All of these studies have been performed without the use of IV and oral contrast. FINDINGS: # of images incl. paperwork: 534 LUNG BASES: Coronary artery calcific ASCVD is present. The heart is borderline enlarged. Lungs are clear. CT abdomen: Degenerative disc disease is present at many levels. Lower lumbar spine facet arthropathy. Some femoral acetabular osteoarthritis remains. Body wall edema. The gallbladder has been resected. The stomach is somewhat decompressed. Liver, spleen, pancreas, and adrenal glands are normal. Right hydronephrosis that was present on the previous study has resolved. Tiny nonobstructing right nephrolith. Left renal atrophy. Normal ureters. The aorta is diseased with atherosclerotic plaque, but without aneurysm. There is no intra-or extrahepatic biliary ductal dilatation. CT pelvis: No ascites is present. The uterus has been resected. The appendix is normal. Series 2 image 116. The bladder is somewhat decompressed. Pelvic phleboliths persists. Some calcifications are present within the vaginal cuff and unchanged. Bowel gas pattern is normal. CT/Abdomen/Pelvis without Cont IMPRESSION: Body wall edema. Coronary artery atherosclerotic disease. No intra-abdominal acute disease perceived. Individualized dose optimization techniques were used for this CT. at 5240 Reported and signed by: Vj Owens MD Electronically Signed: Vj Owens MD at 23:56 EDT Tel , Service support ,
[2019-09-09 23:09] LABS: Bacteria RARE /hpf (None Seen); Squamous Epithelial Cells - UA 0-5 SEEN /hpf (5-10)
[2019-09-09] MEDS: proMETHazine 25 MG Tablet PO (23:47)
[2019-09-09] MEDS: HYDROcodone Bitartrate/Apap 5/325 Tablet PO (23:48)
[2019-09-09 23:58] LABS: Absolute Lymphocyte Count 2.58 X10^3/uL (0.83-4.51); Absolute Neutrophil Count 5.6 X10^3/uL (2.0-7.7); Anion Gap 5 (5-15); BUN 15 mg/dL (7-18); BUN/Creat Ratio 12.8 RATIO (10-20); Basophil# 0.04 X10^3/uL; Basophil% 0.4 % (0-1); Calcium,Total 9.2 mg/dL (8.5-10.1); Chloride 107 mmol/L (98-107); Creatinine, Serum 1.17 mg/dL (0.55-1.02); EST Glomerular Filtration Rate 49 mL/min (>60); Eosinophil# 0.19 X10^3/uL; Est Glom Filt Rate - Afr Amer 59 mL/min (>60); Estimated Creatinine Clearance 39.13 ml/min; Glucose 107 mg/dL (74-106); Hematocrit 42.9 % (37-47); Hemoglobin 12.9 g/dL (12.0-15.0); Lymphocyte # 2.58 X10^3/ul (4.0); Lymphocyte % 27.7 % (19-41); Mean Corp Hgb Conc 30.1 g/dL (32-36); Mean Corpuscular Hgb 25.8 pg (27.0-32.0); Mean Corpuscular Volume 85.8 fL (81-99); Mean Platelet Vol. 10.3 fl (6.2-12.0); Monocyte# 0.83 X10^3/uL; Monocyte% 8.9 % (0-10); NRBC Flagged by Analyzer 0 % (0-5); Neutrophil # 5.64 X10^3/uL (2.7-7.7); Neutrophil % 60.7 % (47-70); Platelet Count 263 K/mm3 (150-450); RBC Distribution Width CV 13.6 % (11.6-14.6); RBC Distribution Width SD 42.3 fl (35.1-43.9); Sodium Level 140 mmol/L (136-145); White Blood Count 9.3 K/mm3 (4.4-11.0)
[2019-09-10 00:21] VITALS: BP 145/64; PULSE 70; RESP 16; O2SAT 96
== END 2019-09-10 01:10 | disposition home or self-care (01) ==
PROVIDERS: Emergency Provider Emergency Medicine; PCP Family Medicine
DX: M54.5 Low back pain (principal); R35.0 Frequency of micturition; R39.15 Urgency of urination; R11.0 Nausea; I10 Essential (primary) hypertension; I25.10 Atherosclerotic heart disease of native coronary artery without angina pectoris; E11.9 Type 2 diabetes mellitus without complications; E78.5 Hyperlipidemia, unspecified; J45.909 Unspecified asthma, uncomplicated; Z85.42 Personal history of malignant neoplasm of other parts of uterus; Z87.442 Personal history of urinary calculi; Z90.49 Acquired absence of other specified parts of digestive tract; Z79.4 Long term (current) use of insulin; Z79.84 Long term (current) use of oral hypoglycemic drugs; Z79.899 Other long term (current) drug therapy
CPT/HCPCS: 74176; 80048; 81001; 85025; 99283; A4216

== ENCOUNTER 2019-10-18 05:58 | Day surgery (SDC) | payer MEDICARE, BC, SELFPAY ==
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
[2019-10-18] VITALS (7 sets, daily range): BP systolic 131–166; BP diastolic 58–81; PULSE 65–74; RESP 16; TEMP 36.1–36.7; O2SAT 93–98; BMI 48.6
--- NOTE | 2019-10-18 | CYST_PTH ---
PATIENT: NIMO MCCLOUD LOC: [facility] U#:[id number] AGE/SX: 68/F ROOM: RE10/18/[address]: Dr. Aubrey Lowery MD : 1950 BED: DIS: 10/18/2019 SPEC #: [id number] RECD: 10/18/19 11:02 STATUS: SIMONA ARETHA #: [id number] EDELMIRA: 10/18/19 00:[address]: Aubrey Lowery DEPT: SURGICAL PATHOLOGY RECD BY: Enrique Barrera ENTERED: 10/18/19 11:02 SP TYPE: Cyst OTHR DR: Dr. Kyler Monge III, MD Tissues: Finger, NOS Procedures: Surgery Specimen Level IV HEADER OPERATION: Release trigger finger, cyst removal, middle finger PRE-OP DIAGNOSIS: Right middle finger stenosing tenosynovitis and cyst TISSUE SUBMITTED: Cyst right middle finger MICROSCOPIC DIAGNOSIS Cyst of right middle finger, biopsy: Benign fibrous walled cyst. AM:jorge 10/19/19 MICROSCOPIC DESCRIPTION Slides are reviewed. GROSS DESCRIPTION Received in fixative is one container labeled with the patient's name and designated right middle finger. The specimen consists of a smooth, glistening cystic structure measuring 5 mm in diameter. The specimen is submitted in its entirety in one cassette. / AM:jorge 10/18/19 TC:5 CPT: 84007
[2019-10-18 06:20] LABS: Bedside Glucose 176 mg/dL (70-110)
[2019-10-18] MEDS: Lactated Ringers 1,000 ML 100 ML IV (06:25)
[2019-10-18] MEDS: Cefazolin 1 GM/50 ML BAG IV (07:23)
[2019-10-18] MEDS: Bupivacaine Mpf 0.5% 30 ML VIAL (07:40)
--- NOTE | 2019-10-18 07:52 | PCM.OPRPT ---
Report of Operation Date of Procedure: 10/18/19 Pre-Operative Diagnosis: 1. Right long finger trigger finger. 2. Right long finger tendon sheath cyst Post-Operative Diagnosis: 1. Right long finger trigger finger. 2. Right long finger tendon sheath cyst Surgery/Procedure Performed:: 1. Right long finger trigger finger release. 2. Right long finger tendon sheath cyst excision Description of Surgical Findings:: 3 mm x 3 mm cyst was excised. photographs curator: None Type of Anesthesia:: Block,Stacey Anesthesiologist: Mele Gandhi Special Medications: 1 g Ancef Specimen's removed: 3 mm x 3 mm cyst Estimated Blood Loss (mL): 1 Fluids Replaced: 500 mL Description of Procedure: On the day of the procedure patient's R upper extremity was marked in the preoperative area. Patient was brought back to the operating room where placed in the supine position with the R hand on the armboard. A [place] block was administered by anesthesia, tourniquet was placed up at that time. R Hand was prepped in a sterile fashion while the surgeon scrubbed. Upon reentering the room the R upper extremity was draped in a standard orthopedic fashion. Incision was marked out over the 3RD digit. Timeout was called and it was agreed upon the side and site, the procedure to be performed, antibiotic given and patient's identity. Incision was taken at the skin. Scissors were used to bluntly dissect until the 3 mm x 3 mm ganglion appearing cyst over the A1 monique could be identified. We carefully dissected around it. We dissected off the A1 monique. It was placed on the back table. At this time the A1 monique was identified. A1 monique was incised in a longitudinal fashion and completely released leaving an ulnarly based flap. The 3RD digit was then taken through range of motion and no triggering was noted. Patient was awakened from the light sedation by anesthesia and the finger was actively taken through range of motion multiple times with no triggering. Wound was copiously irrigated out with normal saline. Incision was closed with 3-0 nylon. Xeroform dressing, sterile dressing, compressive dressing were placed tourniquet was let down. Patient was awakened by anesthesia and transferred to PACU for recovery. Postoperative plan: Patient can remove her dressing in 7 days. She'll follow up in 2 weeks for suture removal. She can begin range of motion as tolerated. - Complications No intraoperative complications - Admit VTE Documentation VTE Present on Admission: No VTE Mechan Device Prophylaxis: SCD's VTE Pharm Prophylaxis ordered?: No Reason prophylaxis not ordered:: Treatment Not Indicated
[2019-10-18] MEDS: Ketorolac 15 MG/ML Vial IV (08:09)
== END 2019-10-18 09:06 | disposition home or self-care (01) ==
LOC: SDC 05:58 → AC 05:59
PROVIDERS: Anesthesiology; PCP Family Medicine; Referring Provider Specialist; Visit Provider Specialist
PROC: (CPT 26055; principal; 2019-10-18 07:20)
DX: M65.331 Trigger finger, right middle finger (principal); M67.843 Other specified disorders of tendon, right hand; M65.841 Other synovitis and tenosynovitis, right hand; Z11.59 Encounter for screening for other viral diseases; I10 Essential (primary) hypertension; E11.9 Type 2 diabetes mellitus without complications; E78.00 Pure hypercholesterolemia, unspecified; G47.30 Sleep apnea, unspecified; G25.81 Restless legs syndrome; K21.9 Gastro-esophageal reflux disease without esophagitis; E06.9 Thyroiditis, unspecified; Z86.2 Personal history of diseases of the blood and blood-forming organs and certain disorders involving the immune mechanism; Z85.42 Personal history of malignant neoplasm of other parts of uterus; Z87.442 Personal history of urinary calculi; Z79.4 Long term (current) use of insulin; Z79.899 Other long term (current) drug therapy
CPT/HCPCS: 26055; 26160; 82962; 87635; 88304; 88305; 94799; J7120; U0003

== ENCOUNTER 2019-11-08 14:23 | Emergency (ER) | payer MEDICARE, BC, SELFPAY ==
[2019-10-18 06:18] VITALS: BMI 48.6
[2019-11-08 14:24] VITALS: BP 165/71; PULSE 73; RESP 14; TEMP 36.8; O2SAT 98; BMI 48.6
--- NOTE | 2019-11-08 14:49 | CT_ITS ---
STUDY: CT ABDOMEN AND PELVIS WITHOUT CONTRAST REASON FOR EXAM: Female, 68 years old. URINARY SX, HX DEE, DB, TOTAL HYSTERECTOMY FOR UTERINE CA RADIATION DOSAGE (If Supplied By Facility): CTDIvol = ( 22.53 ) mGy, DLP = ( 1396.33 ) mGycm TECHNIQUE: Transaxial images were obtained from the dome of the diaphragm to the symphysis pubis without oral contrast, and without intravenous contrast. Sagittal and coronal images were reconstructed. Individualized dose optimization techniques were used for this CT. COMPARISON: CT of abdomen and pelvis dated SEPTEMBER 09, 2019. FINDINGS: 1. No visualized interval change from the prior study. 2. No free air or free fluid 3. Stable and clear lung bases. 4. No demonstrated bowel obstruction or abnormal dilatation. Unremarkable small bowel and stomach. Unremarkable colonic loops. Normal appendix. 5. Chronic body wall edema. Normal adrenal glands. Stable appearance of the kidneys. Small 2 mm nonobstructing calyceal stone in the posterior aspect in the midpole of the right kidney reidentified. Normal left kidney. Chronic mild right perinephric stranding. 6. Normal pancreas and spleen and liver. Stable cholecystectomy clips. 7. Chronic degenerative changes seen in the spine. No lytic or blastic lesions of the osseous structures. 8. Atherosclerotic calcifications of the aorta noted. No aneurysm. Subcentimeter retroperitoneal lymphadenopathy reidentified. Bilateral pelvic sidewall lymphadenopathy reidentified maximally measuring up to 1 cm. Normal bladder. Postsurgical sutural calcifications reidentified in the pelvic cul-de-sac. CT/Abdomen/Pelvis without Cont IMPRESSION: * No acute process or significant interval change * Subcentimeter retroperitoneal lymphadenopathy and bilateral sidewall pelvic adenopathy unchanged from the prior study. Electronically Signed: Valentín Flores MD at 16:35 EDT , Service support ,
--- NOTE | 2019-11-08 14:51 | VDLE_ITS ---
Reason For Study: pain Procedure LEFT Exam performed portable in ED. GSV is normal. The study was technically difficult. CFV is compressible, spontaneous, phasic, Due to obesity. competent, and demonstrates normal A preliminary report was called and/or faxed augmentation. to Dr. Small @ 3:30 pm. FV is compressible, spontaneous, phasic, competent and demonstrates normal augmentation. POP V is compressible, spontaneous, phasic, competent and demonstrates normal augmentation. T/P Trunk is compressible. PTV is compressible. LT PerV is compressible. Interpretation Summary Deep veins of the left lower extremity are patent and compressible segmentally. There is no evidence of left lower extremity deep vein thrombosis. Valvular competence appears intact within the proximal deep venous system on the left . The left great saphenous vein appears patent and compressible segmentally. Ordering Physician: eMle Small Referring Physician: Kyler Monge Performed By: Johanny Sewell, LETICIA, RVT
[2019-11-08] MEDS: Morphine 4 MG/ML Syringe IV ×2 (15:11→16:37)
--- NOTE | 2019-11-08 15:21 | ED.VISSUMM ---
- ER Visit Summary Date of Service: 11/08/19 Chief Complaint: Left leg pain and edema History of Present Illness: The patient is a 68 F who presents with left leg pain and edema that became worse today. Patient states it is gradually gotten worse. Patient describes the pain is aching. Patient states her pain is worse with weightbearing. Patient states it is better with rest and elevation. Patient denies any fevers or chills. Patient also admits to some left flank pain. Patient admits to some nausea. Patient admits to some dysuria but denies any hematuria. Patient is concerned that this could be a kidney infection or kidney stone. Patient is concerned that her leg pain is from a blood clot. Physical Examination: Vital signs are stable. Patient is afebrile. Patient is in no acute distress. Oral mucosa is pink and moist. Neck is supple. Trachea is midline. There is no JVD. Heart was regular rate and rhythm. Lungs are clear and equal bilaterally. Abdomen is soft. Bowel sounds are normal. There is some left CVA tenderness. There is no rebound or guarding noted. Cranial nerves II through XII are intact. There are no focal motor or sensory deficits noted. Extremities are intact. There is tenderness over the left calf and left thigh. There is 1+ edema of the left lower extremity. Test Results: CBC was normal. Basic metabolic profile was within normal limits. Urinalysis does not show any evidence of urinary tract infection. Venous duplex of the left lower extremity was obtained. There is no evidence of DVT. CT scan of the abdomen pelvis was obtained. There is no acute process. Emergency Department Course and Treatment: Patient was advised of her findings. Patient feels her dysuria is most likely due to vaginal candidiasis. Patient was given a dose of Diflucan to treat that. Patient was instructed to follow-up with her primary care physician for further evaluation. Patient understood and was agreeable with the plan. All questions were answered. Disposition: Discharge home Impression: 1. Left leg edema 2. Vaginal candidiasis 3. Dysuria This note was generated with [employer] dictation software. It may contain incorrect words, spelling, and punctuation that were not noted in review of the chart prior to signing ED Disposition - Plan for ED Patient: Disposition: Home or Assisted Living Diagnosis: Leg edema, left, Vaginal candidiasis Instructions: ED Lymphedema, ED ADRIANNA VAGINITIS Referrals: Kyler Monge III, MD [Primary Care Provider] - 3-5 Days
[2019-11-08 15:23] LABS: Absolute Lymphocyte Count 2.24 X10^3/uL (0.83-4.51); Basophil# 0.03 X10^3/uL; Basophil% 0.3 % (0-1); Eosinophil# 0.25 X10^3/uL; Eosinophils% 2.7 % (0-5); Hematocrit 37.7 % (37-47); Hemoglobin 11.9 g/dL (12.0-15.0); Lymphocyte # 2.24 X10^3/ul (4.0); Lymphocyte % 24.1 % (19-41); Mean Corp Hgb Conc 31.6 g/dL (32-36); Mean Corpuscular Hgb 26.4 pg (27.0-32.0); Mean Corpuscular Volume 83.8 fL (81-99); Mean Platelet Vol. 10.4 fl (6.2-12.0); Monocyte# 0.74 X10^3/uL; NRBC Flagged by Analyzer 0 % (0-5); Neutrophil # 5.96 X10^3/uL (2.7-7.7); Neutrophil % 64.3 % (47-70); Platelet Count 249 K/mm3 (150-450); RBC Distribution Width CV 14.3 % (11.6-14.6); RBC Distribution Width SD 43.8 fl (35.1-43.9); White Blood Count 9.3 K/mm3 (4.4-11.0)
[2019-11-08 15:33] LABS: Anion Gap 5 (5-15); BUN 13 mg/dL (7-18); BUN/Creat Ratio 10.9 RATIO (10-20); Calcium,Total 8.5 mg/dL (8.5-10.1); Chloride 109 mmol/L (98-107); Creatinine, Serum 1.19 mg/dL (0.55-1.02); EST Glomerular Filtration Rate 48 mL/min (>60); Est Glom Filt Rate - Afr Amer 58 mL/min (>60); Estimated Creatinine Clearance 40.16 ml/min; Glucose 144 mg/dL (74-106); Sodium Level 139 mmol/L (136-145)
[2019-11-08 16:26] LABS: Mucous, Urine 0 SEEN /hpf (<or=2+); Red Blood Cells-Urine 0 SEEN /hpf (0-5); Squamous Epithelial Cells - UA 0 SEEN /hpf (5-10)
[2019-11-08 16:45] LABS: Color, Urine Straw (Yellow); Glucose, Dipstick Normal (Normal); Ketone-Dipstick Negative (Negative); Leukocyte Esterase-Dipstick 100 /ul (Negative); Nitrite-Dipstick Negative (Negative); Occult Blood-Urine Negative /ul (Negative); Protein-Dipstick Negative (Negative); Specific Gravity, Urine 1.005 (1.002-1.030); Urine Bilirubin Dipstick Negative (Negative); Urine Clarity Clear (Clear); Urine Urobilinogen Normal (Normal)
[2019-11-08 16:51] LABS: Bacteria 1+ /hpf (None Seen); White Blood Cells 0-5 SEEN /hpf (0-5)
[2019-11-08] MEDS: Fluconazole 100 MG Tablet 150 MG PO (17:21)
[2019-11-08 17:23] VITALS: BP 155/67
== END 2019-11-08 17:37 | disposition home or self-care (01) ==
PROVIDERS: Emergency Provider Emergency Medicine; PCP Family Medicine
DX: R60.0 Localized edema (principal); B37.3 Candidiasis of vulva and vagina; R30.0 Dysuria; M79.605 Pain in left leg; R51 Headache; M54.9 Dorsalgia, unspecified; R11.0 Nausea; I10 Essential (primary) hypertension; E11.9 Type 2 diabetes mellitus without complications; E78.00 Pure hypercholesterolemia, unspecified; E03.9 Hypothyroidism, unspecified; G47.33 Obstructive sleep apnea (adult) (pediatric); Z79.4 Long term (current) use of insulin; Z79.84 Long term (current) use of oral hypoglycemic drugs; Z79.899 Other long term (current) drug therapy
CPT/HCPCS: 74176; 80048; 81001; 85025; 93971; 96374; 96376; 99284; A4216

== ENCOUNTER → 2019-11-10 | Outpatient (CLI) | payer MEDICARE, BC, SELFPAY ==
[2019-11-10 13:59] VITALS: BMI 48.6
[2019-11-10 17:26] LABS: Red Blood Cells-Urine 0 SEEN /hpf (0-5)
[2019-11-10 17:29] LABS: Color, Urine Yellow (Yellow); Glucose, Dipstick 50 mg/dl (Normal); Ketone-Dipstick 5 mg/dl (Negative); Leukocyte Esterase-Dipstick 500 /ul (Negative); Nitrite-Dipstick Positive (Negative); Occult Blood-Urine 10 /ul (Negative); Protein-Dipstick 30 mg/dl (Negative); Urine Clarity Cloudy (Clear); Urine Urobilinogen 1 mg/dl (Normal)
[2019-11-10 17:49] LABS: Urine Bilirubin Dipstick 1 mg/dL (Negative)
[2019-11-10 17:59] LABS: Bacteria 4+ /hpf (None Seen); Mucous, Urine 1+ /hpf (<or=2+)
[2019-11-10 18:00] LABS: Squamous Epithelial Cells - UA 0-5 SEEN /hpf (5-10); White Blood Cells 25-50 SEEN /hpf (0-5)
== END | disposition home or self-care (01) ==
LOC: LABSPEC 17:24
PROVIDERS: PCP Family Medicine; Visit Provider Physician Assistant Surgical
DX: N39.0 Urinary tract infection, site not specified (principal); R30.0 Dysuria
CPT/HCPCS: 81001; 87086; 87088; 87186

== ENCOUNTER 2019-11-12 14:20 | Inpatient (IN) | payer MEDICARE, BC, SELFPAY ==
[2019-11-10 13:59] VITALS: BMI 48.6
[2019-11-12 14:21] VITALS: BP 158/102; PULSE 66; RESP 18; TEMP 36.6; O2SAT 100; BMI 49.6
[2019-11-12 16:16] LABS: Bacteria 0 SEEN /hpf (None Seen); Mucous, Urine 0 SEEN /hpf (<or=2+); Red Blood Cells-Urine 0 SEEN /hpf (0-5); Squamous Epithelial Cells - UA 0 SEEN /hpf (5-10); White Blood Cells 0 SEEN /hpf (0-5)
[2019-11-12] MEDS: Morphine 4 MG/ML Syringe IV (16:17)
[2019-11-12] MEDS: 0.9% Normal Saline 1,000 ML 1000 ML IV (16:18)
[2019-11-12] MEDS: proMETHazine 25 MG/ML Syringe 6.25 MG IV (16:19)
[2019-11-12 16:21] LABS: Absolute Neutrophil Count 5.9 X10^3/uL (2.0-7.7); Basophil# 0.03 X10^3/uL; Basophil% 0.3 % (0-1); Eosinophil# 0.29 X10^3/uL; Eosinophils% 3.2 % (0-5); Hematocrit 41.1 % (37-47); Hemoglobin 12.6 g/dL (12.0-15.0); Lymphocyte % 22.2 % (19-41); Mean Corp Hgb Conc 30.7 g/dL (32-36); Mean Corpuscular Volume 84.7 fL (81-99); Mean Platelet Vol. 10.2 fl (6.2-12.0); Monocyte# 0.68 X10^3/uL; Monocyte% 7.6 % (0-10); NRBC Flagged by Analyzer 0 % (0-5); Neutrophil # 5.94 X10^3/uL (2.7-7.7); Neutrophil % 66.1 % (47-70); Platelet Count 276 K/mm3 (150-450); RBC Distribution Width CV 14.6 % (11.6-14.6); RBC Distribution Width SD 44.8 fl (35.1-43.9); Red Blood Count 4.85 M/mm3 (4.2-5.4)
[2019-11-12 16:24] LABS: Color, Urine Yellow (Yellow); Glucose, Dipstick Normal (Normal); Ketone-Dipstick Negative (Negative); Leukocyte Esterase-Dipstick Negative /ul (Negative); Nitrite-Dipstick Negative (Negative); Occult Blood-Urine Negative /ul (Negative); Protein-Dipstick Negative (Negative); Specific Gravity, Urine 1.015 (1.002-1.030); Urine Bilirubin Dipstick Negative (Negative); Urine Clarity Sl. Cloudy (Clear); Urine Urobilinogen Normal (Normal)
[2019-11-12 16:39] LABS: ALB/GLOB Ratio 0.8 RATIO (0.9-2.4); AST(SGOT) 26 U/L (15-37); Alanine Aminotransfer ALT/SGPT 49 U/L (13-56); Albumin, Serum 3.5 g/dL (3.2-5.0); Alkaline Phosphatase 97 U/L (45-117); Anion Gap 5 (5-15); BUN 14 mg/dL (7-18); Chloride 104 mmol/L (98-107); Creatinine, Serum 1.17 mg/dL (0.55-1.02); EST Glomerular Filtration Rate 49 mL/min (>60); Est Glom Filt Rate - Afr Amer 59 mL/min (>60); Estimated Creatinine Clearance 39.13 ml/min; Globulin 4.2 g/dL (2.2-4.2); Glucose 138 mg/dL (74-106); Lipase 111 U/L (73-393); Protein, Total 7.7 g/dL (6.4-8.2); Sodium Level 138 mmol/L (136-145)
[2019-11-12 16:41] LABS: Lactic Acid 1.2 mmol/L (0.4-1.9)
[2019-11-12 17:54] VITALS: BP 166/67; PULSE 76; PULSE 77; RESP 17; RESP 19; TEMP 36.4; O2SAT 97
--- NOTE | 2019-11-12 17:55 | ED.DCSUM_ITS ---
History of Present Illness Chief Complaint: Complaint Informant: Patient Onset: Days Context: Gradual Onset Timing: Continuous Narrative: Patient is a 68-year-old female with history of insulin-dependent diabetes cadence itus presenting with worsening back pain as well as left lower leg pain. Patient has associated rash of her left lower leg that seems be worsening. She start on doxycycline for 4 doses so far but her symptom seem to be worsening. Earlier this week patient had an ultrasound of her leg to rule out DVT as well as a CT of her abdomen and pelvis which was largely negative. She denies any associated fever but has had some mild nausea but no vomiting. States her bowel movements have been normal. She has had chills. Denies any chest pain, shortness of breath or difficulty breathing. Does have remote history of cellulitis. Patient not take anything for pain before coming in. She scribes her pain is aching and sharp in her back as well as burning in her left leg. Past Medical History - Allergies and Home Meds Allergies/Adverse Reactions: Allergies ondansetron HCl [From Zofran (as hydrochloride)] Allergy (Verified 11/12/19 14:21) Rash oxycodone HCl [From Percocet] Adverse Reaction (Verified 11/12/19 14:21) Rash Penicillins [PCN] Adverse Reaction (Verified 11/12/19 14:21) Other states she gets a yeast infection propoxyphene napsylate [From Darvocet-N 100] Adverse Reaction (Verified 11/12/19 14:21) Rash shellfish derived Adverse Reaction (Verified 11/12/19 14:21) Rash Past Medical History: - - Insulin-dependent diabetes mellitus, hyperlipidemia, hypertension, hypothyroid Surgical History: cholecystectomy, hysterectomy - With bilateral salpingo- oophorectomy, - Smoking Status: Never smoker - Family History Maternal Family History: Family History (Last Reviewed 11/12/19 @ 18:12 by JUSTIN Parker) Father Colon cancer Grandmother No problems noted. Mother Colon cancer Cancer Heart disease CVA (cerebral vascular accident) Diabetes Thyroid disorder Hypertension Brother Colon cancer Family History: Reports: Heart Disease, No pertinent history Paternal Family History: Family History (Last Reviewed 11/12/19 @ 18:12 by JUSTIN Parker) Father Colon cancer Grandmother No problems noted. Mother Colon cancer Cancer Heart disease CVA (cerebral vascular accident) Diabetes Thyroid disorder Hypertension Brother Colon cancer Review of Systems General: Denies: Chills, Fever, Sweats Eyes: Denies: Visual changes - bilaterally, Diplopia ENT: Denies: Rhinorrhea, Sore throat Cardiovascular: Denies: Chest pain, Palpitations Respiratory: Denies: Dyspnea, Cough, Dyspnea on exertion Gastrointestinal: Reports: Nausea. Denies: Abdominal pain, Vomiting, Diarrhea, Melena, Hematochezia Genitourinary: Denies: Dysuria, Hematuria, Frequency Musculoskeletal: Reports: Back pain - Right flank, Swelling, Extremity Pain - Left lower extremity Skin: Reports: Rash - Left lower leg. Denies: Wounds Neurological: Denies: Headache, Weakness, Numbness Physical Exam Vital Signs/Narrative: Vital Signs Temp Pulse Resp BP Pulse Ox 11/12/19 17:54 97.6 F L 76 19 H 166/67 H 97 11/12/19 14:21 98 F 66 18 158/102 H 100 Inital Vital Signs reviewed: Yes General: Well nourished, Well developed, No Acute Distress Head: Normocephalic, Atraumatic Eyes: Perrl, EOMI ENT: Moist mucous membranes, No rhinorrhea Neck: Supple, Nontender, No JVD Cardiovascular: Regular rate, Regular rhythm, No murmurs Respiratory: No distress, CTA bilaterally, Chest nontender Abdomen: Soft, Nontender, Nondistended, Normal bowel sounds. Negative for: Tender, Guarding, Rebound tenderness Back: Nontender, Normal Inspection, CVA tenderness - Right. Negative for: Spinal tenderness Extremities: Tenderness - Diffusely of the left lower leg, Edema - 2+ bilateral pitting edema up to the knees, - - No palpable cords Skin: Normal color, Rash - Warmth and erythema, blanching of the left lower leg sparing of the foot and terminating distal to the knee. Is circumferential in its distribution. No associated abscess or drainage. Neurological: Alert, Oriented x3, Cranial nerves II-XII grossly intact, Normal Strength, Normal Sensation Psychological: Normal affect, Normal Mood Diagnostic/Tx/Re-eval Laboratory Data 11/12/19 11/12/19 11/12/19 16:00 16:00 16:00 WBC 9.0 RBC 4.85 Hgb 12.6 Hct 41.1 MCV 84.7 MCH 26.0 L MCHC 30.7 L RDW Std Deviation 44.8 H RDW Coeff of Tara 14.6 Plt Count 276 MPV 10.2 Immature Gran % (Auto) 0.600 Neut % (Auto) 66.1 Lymph % (Auto) 22.2 [place] % (Auto) 7.6 Eos % (Auto) 3.2 Baso % (Auto) 0.3 Absolute Neuts (auto) 5.9 Absolute Lymphs (auto) 2.00 Nucleated RBC % 0 Sodium 138 Potassium 4.0 Chloride 104 Carbon Dioxide 29.0 Anion Gap 5 BUN 14 Creatinine 1.17 H Estim Creat Clear Calc 39.13 Est GFR (MDRD) Af Amer 59 L Est GFR (MDRD) Non-Af 49 L BUN/Creatinine Ratio 12.0 Glucose 138 H Lactic Acid 1.2 Calcium 9.0 Total Bilirubin 0.40 AST 26 ALT 49 Alkaline Phosphatase 97 Total Protein 7.7 Albumin 3.5 Globulin 4.2 Albumin/Globulin Ratio 0.8 L Lipase 111 Urine Color Urine Clarity Urine pH Ur Specific [place] Urine Protein Urine Glucose (UA) Urine Ketones Urine Occult Blood Urine Nitrite Urine Bilirubin Urine Urobilinogen Ur Leukocyte Esterase Urine RBC Urine WBC Ur Squamous Epith Cells Urine Bacteria Urine Mucus 11/12/19 16:00 WBC RBC Hgb Hct MCV MCH MCHC RDW Std Deviation RDW Coeff of Tara Plt Count MPV Immature Gran % (Auto) Neut % (Auto) Lymph % (Auto) [place] % (Auto) Eos % (Auto) Baso % (Auto) Absolute Neuts (auto) Absolute Lymphs (auto) Nucleated RBC % Sodium Potassium Chloride Carbon Dioxide Anion Gap BUN Creatinine Estim Creat Clear Calc Est GFR (MDRD) Af Amer Est GFR (MDRD) Non-Af BUN/Creatinine Ratio Glucose Lactic Acid Calcium Total Bilirubin AST ALT Alkaline Phosphatase Total Protein Albumin Globulin Albumin/Globulin Ratio Lipase Urine Color Yellow Urine Clarity Sl. Cloudy Urine pH 5.0 Ur Specific [place] 1.015 Urine Protein Negative Urine Glucose (UA) Normal Urine Ketones Negative Urine Occult Blood Negative Urine Nitrite Negative Urine Bilirubin Negative Urine Urobilinogen Normal Ur Leukocyte Esterase Negative Urine RBC 0 SEEN Urine WBC 0 SEEN Ur Squamous Epith Cells 0 SEEN Urine Bacteria 0 SEEN Urine Mucus 0 SEEN - Medical Decision Making Patient is evaluated for 2 complaints, the first is worsening redness and pain of her left lower leg and the second is for worsening right flank pain. Patient had a recent UTI that was culture positive for E. coli that was pansensitive. She has been on doxycycline. Repeat urinalysis today does not show any signs of infection. In addition patient has worsening redness and cellulitic changes of her left lower leg despite 48 hours of antibiotic. No associated crepitus or signs of gas gangrene. Patient is an insulin-dependent diabetic and a high risk of complication. Patient is started on Ancef in the ER. She will be admitted for further treatment. She is initially given morphine and Phenergan for pain control and symptom control. She is been given Toradol for for the pain control. Patient stable for general medical floor at time of disposition. ED Disposition - Plan for ED Patient: Disposition: [facility] Diagnosis: Left leg swelling, Cellulitis of leg, left, Right flank pain, Cystitis
[2019-11-12 17:57] VITALS: BP 166/67; PULSE 75; RESP 16; TEMP 36.4; O2SAT 96
--- NOTE | 2019-11-12 18:05 | PCM.HP.STD ---
<Dia Cosme - Last Filed: 11/12/19 18:20> Problem List (1) Left leg swelling Status: Acute (2) Cystitis Status: Acute (3) History of esophagogastroduodenoscopy (EGD) Status: Chronic Comment: 04/11/18 (4) Contusion of left shoulder, initial encounter Status: Chronic (5) Urinary tract infection Status: Acute Qualifiers: Urinary tract infection type: acute cystitis Hematuria presence: with hematuria Qualified Code(s): N30.01 - Acute cystitis with hematuria (6) Restrictive ventilatory defect Status: Chronic (7) ANISHA (obstructive sleep apnea) Status: Chronic Comment: BiPAP 18/14 cm of water (8) S/P colonoscopy Status: Chronic Comment: 2017 (9) S/P wrist surgery Status: Chronic (10) S/P hysterectomy Status: Chronic (11) Stone, kidney Status: Resolved (12) Status post laparoscopic cholecystectomy Status: Chronic (13) HTN (hypertension) Status: Chronic (14) Cancer Status: Chronic Comment: Uterine (15) Kidney disease Status: Chronic (16) Hemorrhoids Status: Chronic (17) Shoulder pain Status: Chronic (18) Diabetes Status: Chronic Qualifiers: Diabetes mellitus type: type 2 (19) Diarrhea Status: Acute (20) Asthma Status: Chronic (21) Thyroid disease Status: Chronic (22) Mid back pain on left side Status: Chronic (23) Hyperlipidemia Status: Chronic (24) Uterine cancer Status: Chronic (25) Morbid obesity Status: Chronic (26) Dyslipidemia Status: Chronic (27) DM2 (diabetes mellitus, type 2) Status: Chronic (28) Vertigo Status: Resolved (29) Benign essential HTN Status: Chronic History of Present Illness Date of Admission: 11/12/19 Chief Complaint: Left lower extremity redness, warmth and pain. Right flank pain. The patient is a 68 year old F who presents the emergency room due to worsening left lower extremity redness, warmth and pain. Patient presented to ER last 11/08/2019 due to left leg edema and dysuria. She was treated for vaginal candidiasis with Diflucan. Left lower extremity ultrasound negative for DVT. Two days later she was seen at urgent care for ongoing left lower extremity redness and warmth as well as dysuria. She was placed on doxycycline. Patient states since that time her left lower extremity has become increasingly more painful and red. She reports chills. Denies fever. Complains of nausea, denies emesis. She denies further dysuria however complains of ongoing right flank pain. Patient reports a history of multiple kidney stones. She has a past medical history of hypertension, hyperlipidemia, uterine cancer in remission, type 2 diabetes mellitus, morbid obesity, ANISHA on BiPAP. Past Medical History Past Medical History (Chronic Problems): Chronic Problems (Last Reviewed 11/10/19 @ 13:59 by Juanito Jara) History of esophagogastroduodenoscopy (EGD) (Chronic) 04/11/18 Contusion of left shoulder, initial encounter (Chronic) Restrictive ventilatory defect (Chronic) ANISHA (obstructive sleep apnea) (Chronic) BiPAP 18/14 cm of water S/P colonoscopy (Chronic) 2017 S/P wrist surgery (Chronic) S/P hysterectomy (Chronic) Status post laparoscopic cholecystectomy (Chronic) HTN (hypertension) (Chronic) Cancer (Chronic) Uterine Kidney disease (Chronic) Hemorrhoids (Chronic) Shoulder pain (Chronic) Diabetes (Chronic) Asthma (Chronic) Thyroid disease (Chronic) Mid back pain on left side (Chronic) Hyperlipidemia (Chronic) Uterine cancer (Chronic) Morbid obesity (Chronic) Dyslipidemia (Chronic) DM2 (diabetes mellitus, type 2) (Chronic) Benign essential HTN (Chronic) Medical History: Medical History (Last Reviewed 11/10/19 @ 13:59 by Juanito Jara) HTN (hypertension) (Chronic) I10 Cancer (Acute) C80.1 Kidney disease (Acute) N28.9 Hemorrhoids (Acute) K64.9 Shoulder pain (Acute) M25.519 Diabetes (Chronic) E11.9 Fatigue (Acute) R53.83 Diarrhea (Acute) R19.7 Asthma (Chronic) J45.909 Thyroid disease (Acute) E07.9 Back pain (Acute) M54.9 Allergies ondansetron HCl [From Zofran (as hydrochloride)] Allergy (Verified 11/12/19 14:21) Rash oxycodone HCl [From Percocet] Adverse Reaction (Verified 11/12/19 14:21) Rash Penicillins [PCN] Adverse Reaction (Verified 11/12/19 14:21) Other states she gets a yeast infection propoxyphene napsylate [From Darvocet-N 100] Adverse Reaction (Verified 11/12/19 14:21) Rash shellfish derived Adverse Reaction (Verified 11/12/19 14:21) Rash Home Medications: Ambulatory Orders Medication Instructions Recorded Lovastatin [Mevacor] 20 mg PO QHS 08/25/14 Insulin Glargine,Hum.rec.anlog 40 unit SQ BID 10/24/15 [Lantus] insulin aspart U-100 100 unit/mL 25 unit SC TIDCM PRN ml 10/11/17 (3 mL) subcutaneous pen albuterol sulfate 90 mcg/actuation 1 puff INHALATION Q6H PRN 03/29/18 aerosol inhaler Losartan Potassium 100 mg PO DAILY 05/25/18 metformin 500 mg tablet 500 mg PO BIDCM tab 11/28/18 levothyroxine 300 mcg tablet 300 mcg PO DAILY tab 08/10/19 Dulaglutide [Trulicity] 1.5 mg SQ WE 08/14/19 Omeprazole [Prilosec] 20 mg PO DAILY 10/09/19 doxycycline hyclate 100 mg capsule 100 mg PO BID 10 Days #20 cap 11/10/19 buPROPion XL [Wellbutrin Xl] 300 mg PO DAILY 11/12/19 Surgical History: Surgical History (Last Reviewed 11/10/19 @ 13:59 by Juanito Jara) History of esophagogastroduodenoscopy (EGD) (Acute) Z98.890 04/11/18 S/P colonoscopy (Acute) Z98.890 2016 S/P wrist surgery (Acute) Z98.890 S/P hysterectomy (Chronic) Z90.710 Stone, kidney (Chronic) N20.0 Status post laparoscopic cholecystectomy (Chronic) Z90.49 History of colonoscopy Onset Date: ~08/14/19 Z98.890 Surgical History: cholecystectomy, hysterectomy - With bilateral salpingo-oophorectomy, - - Right hand cyst removal, right shoulder surgery. 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 Mother Colon cancer Cancer Heart disease CVA (cerebral vascular accident) Diabetes Thyroid disorder Hypertension Brother Colon cancer History Items: Heart Disease, No pertinent history Paternal Family History: Family History (Last Reviewed 11/12/19 @ 18:12 by JUSTIN Parker) Father Colon cancer Grandmother No problems noted. Mother Colon cancer Cancer Heart disease CVA (cerebral vascular accident) Diabetes Thyroid disorder Hypertension Brother Colon cancer Review of Systems Constitutional: Reports: Chills, Malaise. Denies: Fever HEENT: Denies: Head Aches, Sinus Congestion, Sinus Drainage Cardiovascular: Denies: Chest Pain, Palpitations Respiratory: Denies: Cough, Shortness of breath at rest, Sputum production Gastrointestinal: Reports: Nausea. Denies: Abdominal Pain, Vomiting Genitourinary: Reports: Dysuria - Mostly resolved, - - Right flank pain. Denies: Incontinence, Urgency Musculoskeletal: Denies: Joint Pain, Joint Tenderness Skin: Reports: - - Left lower extremity redness, warmth, calf pain. Denies: Rash, Wounds Neurological: Denies: Numbness, Tingling, Focal weakness Psychiatric: Denies: Anxiety, Depression, Homicidal Ideations, Suicidal Ideations Hematologic/ Lymphatic: Denies: Easy Bruising, Easy Bleeding VTE Information - Inpt Only VTE Present on Admission: No VTE Mechan Device Prophylaxis: None VTE Pharm Prophylaxis ordered?: Yes - Physical Exam Vitals/I&O's: Vital Signs Temp Pulse Resp BP Pulse Ox 97.6 F L 75 16 166/67 H 96 11/12/19 17:57 11/12/19 17:57 11/12/19 17:57 11/12/19 17:57 11/12/19 17:57 Oxygen Delivery Method Room Air Weight: 280 lb Body Mass Index (BMI) 49.6 Intake and Output for Last 24 Hours 11/10/19 11/11/19 11/12/19 23:59 23:59 23:59 Intake Total 1000 / 1000 Balance 1000 / 1000 General: Alert, Oriented x3, Cooperative, - HEENT: Atraumatic, PERRLA, EOMI, Normocephalic Oral: Dry Mucosa Neck: Supple, No JVD, Negative Carotid Bruits Lungs: Clear to auscultation, Diminished Cardiovascular: Regular rate, No murmurs Abdomen: Bowel Sounds Present, Soft, Non Tender, Non-Distended, Obese Extremities: No clubbing, No cyanosis, Edema - Left lower extremity Skin: - - Left lower extremity diffuse erythema Musculoskeletal: No Tenderness to Palpation of Joints or Extremities Neurological: Cranial nerves II-XII grossly intact, Neuro grossly intact Psych/Mental Status: Normal Affect, Appropriate Laboratory Results 11/12/19 16:00: WBC 9.0, RBC 4.85, Hgb 12.6, Hct 41.1, MCV 84.7, MCH 26.0 L, MCHC 30.7 L, RDW Std Deviation 44.8 H, RDW Coeff of Tara 14.6, Plt Count 276, MPV 10.2, Immature Gran % (Auto) 0.600, Neut % (Auto) 66.1, Lymph % (Auto) 22.2, [place] % (Auto) 7.6, Eos % (Auto) 3.2, Baso % (Auto) 0.3, Absolute Neuts (auto) 5.9, Absolute Lymphs (auto) 2.00, Nucleated RBC % 0 11/12/19 16:00: Sodium 138, Potassium 4.0, Chloride 104, Carbon Dioxide 29.0, Anion Gap 5, BUN 14, Creatinine 1.17 H, Estim Creat Clear Calc 39.13, Est GFR (MDRD) Af Amer 59 L, Est GFR (MDRD) Non-Af 49 L, BUN/Creatinine Ratio 12.0, Glucose 138 H, Calcium 9.0, Total Bilirubin 0.40, AST 26, ALT 49, Alkaline Phosphatase 97, Total Protein 7.7, Albumin 3.5, Globulin 4.2, Albumin/Globulin Ratio 0.8 L, Lipase 111 11/12/19 16:00: Lactic Acid 1.2 11/12/19 16:00: Urine Color Yellow, Urine Clarity Sl. Cloudy, Urine pH 5.0, Ur Specific [place] 1.015, Urine Protein Negative, Urine Glucose (UA) Normal, Urine Ketones Negative, Urine Occult Blood Negative, Urine Nitrite Negative, Urine Bilirubin Negative, Urine Urobilinogen Normal, Ur Leukocyte Esterase Negative, Urine RBC 0 SEEN, Urine WBC 0 SEEN, Ur Squamous Epith Cells 0 SEEN, Urine Bacteria 0 SEEN, Urine Mucus 0 SEEN Current Medications Cefazolin Sodium 2 gm/ Sodium (Chloride) 110 mls @ 150 mls/hr IV X1 ONE Stop: 11/12/19 18:36 Assessment/Plan All Active Problems (Last Reviewed 11/10/19 @ 13:59 by Juanito Jara) Left leg swelling (Acute) Cystitis (Acute) Urinary tract infection (Acute) Stone, kidney (Resolved) Diarrhea (Acute) Vertigo (Resolved) 1. Acute left lower extremity cellulitis-duplex ultrasound 11/11/2019 negative for DVT. Failed outpatient treatment with doxycycline. Begin IV cefazolin. Elevate left lower extremity. 2. Recent UTI-ongoing right flank pain. UA on admission unremarkable. Recent Diflucan and treatment with Cipro. Urine culture and blood culture pending. 3. History of recurrent nephrolithiasis-CT of abdomen and pelvis 11/08/2019 demonstrated small 2 mm nonobstructing stone in the posterior aspect of the midpole of the right kidney. Normal left kidney. Chronic mild right perinephric stranding. 4. Hypertension-stable, continue losartan. 5. Hyperlipidemia-continue statin. 6. Uterine cancer in remission 7. Type 2 diabetes radixaut-Bzxe-Jjwee with sliding scale insulin. 8. Morbid obesity-encouraged diet and lifestyle modifications. 9. Hypothyroidism-continue Synthroid regimen. 10. Anxiety/depression-continue Wellbutrin. 11. ANISHA-on BiPAP. 12. GERD-continue omeprazole. DVT prophylaxis-Lovenox subcu CODE STATUS: Discussed in length with patient and daughter who is healthcare power of assistant district attorney differences in CODE STATUS including full code, DNR CCA and DNR CC. Patient elects DNR CCA no intubation status. 18 minutes spent on advanced care planning. This patient was seen by JUSTIN Parker under the supervision of Dr. Ferrera. <Nayely Ferrera - Last Filed: 11/12/19 19:40> History of Present Illness The patient is a 68 year old F [] Past Medical History Medical History: Medical History (Last Reviewed 11/10/19 @ 13:59 by Juanito Jara) HTN (hypertension) (Chronic) I10 Cancer (Acute) C80.1 Kidney disease (Acute) N28.9 Hemorrhoids (Acute) K64.9 Shoulder pain (Acute) M25.519 Diabetes (Chronic) E11.9 Fatigue (Acute) R53.83 Diarrhea (Acute) R19.7 Asthma (Chronic) J45.909 Thyroid disease (Acute) E07.9 Back pain (Acute) M54.9 Allergies ondansetron HCl [From Zofran (as hydrochloride)] Allergy (Verified 11/12/19 14:21) Rash oxycodone HCl [From Percocet] Adverse Reaction (Verified 11/12/19 14:21) Rash Penicillins [PCN] Adverse Reaction (Verified 11/12/19 14:21) Other states she gets a yeast infection propoxyphene napsylate [From Darvocet-N 100] Adverse Reaction (Verified 11/12/19 14:21) Rash shellfish derived Adverse Reaction (Verified 11/12/19 14:21) Rash Surgical History: Surgical History (Last Reviewed 11/10/19 @ 13:59 by Juanito Jara) History of esophagogastroduodenoscopy (EGD) (Acute) Z98.890 04/11/18 S/P colonoscopy (Acute) Z98.890 2016 S/P wrist surgery (Acute) Z98.890 S/P hysterectomy (Chronic) Z90.710 Stone, kidney (Chronic) N20.0 Status post laparoscopic cholecystectomy (Chronic) Z90.49 History of colonoscopy Onset Date: ~08/14/19 Z98.890 - *Family History Maternal Family History: Family History (Last Reviewed 11/12/19 @ 18:12 by JUSTIN Parker) Father Colon cancer Grandmother No problems noted. Mother Colon cancer Cancer Heart disease CVA (cerebral vascular accident) Diabetes Thyroid disorder Hypertension Brother Colon cancer Paternal Family History: Family History (Last Reviewed 11/12/19 @ 18:12 by JUSTIN Parker) Father Colon cancer Grandmother No problems noted. Mother Colon cancer Cancer Heart disease CVA (cerebral vascular accident) Diabetes Thyroid disorder Hypertension Brother Colon cancer - Physical Exam Vitals/I&O's: Vital Signs Temp Pulse Resp BP Pulse Ox 97.6 F L 75 16 166/67 H 96 11/12/19 17:57 11/12/19 17:57 11/12/19 17:57 11/12/19 17:57 11/12/19 17:57 Oxygen Delivery Method Room Air Weight: 127 kg Body Mass Index (BMI) 49.6 Intake and Output for Last 24 Hours 11/10/19 11/11/19 11/12/19 23:59 23:59 23:59 Intake Total 1000 / 1000 Balance 1000 / 1000 Laboratory Results 11/12/19 16:00: WBC 9.0, RBC 4.85, Hgb 12.6, Hct 41.1, MCV 84.7, MCH 26.0 L, MCHC 30.7 L, RDW Std Deviation 44.8 H, RDW Coeff of Tara 14.6, Plt Count 276, MPV 10.2, Immature Gran % (Auto) 0.600, Neut % (Auto) 66.1, Lymph % (Auto) 22.2, [place] % (Auto) 7.6, Eos % (Auto) 3.2, Baso % (Auto) 0.3, Absolute Neuts (auto) 5.9, Absolute Lymphs (auto) 2.00, Nucleated RBC % 0 11/12/19 16:00: Sodium 138, Potassium 4.0, Chloride 104, Carbon Dioxide 29.0, Anion Gap 5, BUN 14, Creatinine 1.17 H, Estim Creat Clear Calc 39.13, Est GFR (MDRD) Af Amer 59 L, Est GFR (MDRD) Non-Af 49 L, BUN/Creatinine Ratio 12.0, Glucose 138 H, Calcium 9.0, Total Bilirubin 0.40, AST 26, ALT 49, Alkaline Phosphatase 97, Total Protein 7.7, Albumin 3.5, Globulin 4.2, Albumin/Globulin Ratio 0.8 L, Lipase 111 11/12/19 16:00: Lactic Acid 1.2 11/12/19 16:00: Urine Color Yellow, Urine Clarity Sl. Cloudy, Urine pH 5.0, Ur Specific [place] 1.015, Urine Protein Negative, Urine Glucose (UA) Normal, Urine Ketones Negative, Urine Occult Blood Negative, Urine Nitrite Negative, Urine Bilirubin Negative, Urine Urobilinogen Normal, Ur Leukocyte Esterase Negative, Urine RBC 0 SEEN, Urine WBC 0 SEEN, Ur Squamous Epith Cells 0 SEEN, Urine Bacteria 0 SEEN, Urine Mucus 0 SEEN Current Medications Acetaminophen (Tylenol) 650 mg PO Q6H PRN PRN PRN Reason: Pain Score 1-10/Temp > 100.7 F Albuterol Sulfate (Ventolin Aerosols) 2.5 mg INHALATION Q4H PRN PRN PRN Reason: SOB/WEEZING Atorvastatin Calcium (Lipitor) 5 mg PO QHS RICHARD Bupropion HCl (Wellbutrin Xl) 300 mg PO DAILY RICHARD Dextrose (D50w Syringe) 0 gm IV X1 PRN; Protocol PRN Reason: Hypoglycemia Enoxaparin Sodium (Lovenox) 40 mg SC BID RICHARD Glucagon () 1 mg IM .X1 PRN PRN Reason: Hypoglycemia Cefazolin Sodium 2 gm/ Sodium (Chloride) 110 mls @ 150 mls/hr IV Q8 RICHARD Insulin Human Lispro (Humalog Kwikpen (Bkc)) 0 unit SC ACHS RICHARD; Protocol Losartan Potassium (Cozaar) 100 mg PO DAILY RICHARD Ondansetron HCl (Zofran) 4 mg IV Q8H PRN PRN PRN Reason: NAUSEA/VOMITING Pantoprazole Sodium (Protonix) 20 mg PO DAILY RICHARD Sodium Chloride () 10 - 40 ml IV UD PRN PRN Reason: SALINE FLUSH Assessment/Plan This patient was seen in conjunction with Dia Cosme NP. I have independently interviewed and examined the patient and reviewed pertinent historical, laboratory, and other data. Please refer to her note for patient's presentation, findings, and recommendations. 62-year-old with multiple comorbidities including type II DM, hypertension, morbid obesity who comes in with worsening left lower extremity redness and pain ongoing for 1 week. Patient was recently seen in the urgent care and started on doxycycline. Her lower extremity has however become more painful and red. She also complains of right flank pain, had a CAT scan done in the ED 4 days ago that showed a 2 cm nonobstructing stone. Urinalysis is unimpressive Denies any fever or chills or nausea vomiting or diarrhea. Vitals were reviewed -stable Physical Exam: Gen: Looks in some discomfort, not pale, not jaundiced, alert oriented x3, morbidly obese CVS:HS I +II, regular, no murmurs RESP: Diminished at lung bases GI: BS present and normal, nontender, no palpable organs EXT: Left lower extremity redness, tenderness, with differential warmth Labs reviewed: ASSESSMENT: 1. Acute left lower extremity cellulitis 2. Recent UTI 3. Right kidney stone, nonobstructing, history of recurrent nephrolithiasis 4. Hypertension 5. Hyperlipidemia 6. Uterine CA in remission 7. Type II DM 8. Morbid obesity 9. Hypothyroidism 10.Anxiety/depression 11. ANISHA on BiPAP Meds reviewed Plan: Continue on IV cefazolin Follow-up on urine culture hold home metformin, continue on home insulin, blood glucose checks with insulin sliding scale Continue to elevate the left lower extremity Repeat blood work in a.m. Inpatient E&M: 97070 Init Hosp L3 Procedures: 99218 Advncd Care Plan 30 Min
[2019-11-12] MEDS: Cefazolin 2 GM in 0.9% Normal Saline 100 ML IV (18:23)
[2019-11-12] MEDS: Ketorolac 15 MG/ML Vial IV (18:24)
[2019-11-12 19:21] VITALS: BMI 49.6
[2019-11-12 19:27] VITALS: BMI 49.6
[2019-11-12 19:35] VITALS: BP 141/59; PULSE 73; RESP 16; TEMP 36.8; O2SAT 96
[2019-11-12] MEDS: Acetaminophen 325 MG Tablet 650 MG PO (20:32)
[2019-11-12] MEDS: Enoxaparin 40 MG/0.4 ML Syringe SC (22:38)
[2019-11-12] MEDS: Atorvastatin Calcium 10 MG Tablet 5 MG PO (22:39)
[2019-11-12 22:55] LABS: Bedside Glucose 109 mg/dL (70-110)
[2019-11-13 02:37] VITALS: BP 145/60; PULSE 58; RESP 16; TEMP 36.6; O2SAT 99
[2019-11-13] MEDS: Acetaminophen 325 MG Tablet 650 MG PO ×2 (02:47→15:34)
[2019-11-13] MEDS: Cefazolin 2 GM in 0.9% Normal Saline 100 ML IV ×3 (05:52→22:03)
[2019-11-13 06:29] LABS: Absolute Neutrophil Count 4.1 X10^3/uL (2.0-7.7); Basophil# 0.03 X10^3/uL; Basophil% 0.4 % (0-1); Eosinophils% 2.8 % (0-5); Hematocrit 36.5 % (37-47); Hemoglobin 11.3 g/dL (12.0-15.0); Lymphocyte % 29.5 % (19-41); Mean Corpuscular Hgb 26.4 pg (27.0-32.0); Mean Corpuscular Volume 85.3 fL (81-99); Mean Platelet Vol. 9.9 fl (6.2-12.0); Monocyte# 0.63 X10^3/uL; Monocyte% 8.9 % (0-10); NRBC Flagged by Analyzer 0 % (0-5); Neutrophil # 4.12 X10^3/uL (2.7-7.7); Platelet Count 241 K/mm3 (150-450); RBC Distribution Width CV 14.7 % (11.6-14.6); RBC Distribution Width SD 45.1 fl (35.1-43.9); Red Blood Count 4.28 M/mm3 (4.2-5.4); White Blood Count 7.1 K/mm3 (4.4-11.0)
[2019-11-13 06:58] LABS: ALB/GLOB Ratio 0.8 RATIO (0.9-2.4); AST(SGOT) 28 U/L (15-37); Alanine Aminotransfer ALT/SGPT 38 U/L (13-56); Albumin, Serum 2.8 g/dL (3.2-5.0); Alkaline Phosphatase 76 U/L (45-117); Anion Gap 4 (5-15); BUN 16 mg/dL (7-18); BUN/Creat Ratio 12.7 RATIO (10-20); Calcium,Total 8.4 mg/dL (8.5-10.1); Chloride 108 mmol/L (98-107); Creatinine, Serum 1.26 mg/dL (0.55-1.02); EST Glomerular Filtration Rate 45 mL/min (>60); Est Glom Filt Rate - Afr Amer 55 mL/min (>60); Estimated Creatinine Clearance 36.33 ml/min; Globulin 3.6 g/dL (2.2-4.2); Glucose 75 mg/dL (74-106); Potassium 3.8 mmol/L (3.5-5.1); Protein, Total 6.4 g/dL (6.4-8.2); Sodium Level 140 mmol/L (136-145)
[2019-11-13 07:16] LABS: Bedside Glucose 85 mg/dL (70-110)
[2019-11-13 08:00] VITALS: PULSE 85
[2019-11-13 08:30] VITALS: BP 165/80; PULSE 61; RESP 18; TEMP 36.6; O2SAT 99
[2019-11-13] MEDS: Losartan Potassium 100 MG Tablet PO (08:53)
[2019-11-13] MEDS: Enoxaparin 40 MG/0.4 ML Syringe SC ×2 (08:53→22:03)
[2019-11-13] MEDS: Pantoprazole Sodium 20 MG Tablet PO (08:54)
[2019-11-13] MEDS: buPROPion (XL) 300 MG TABLET.XL PO (08:54)
[2019-11-13] MEDS: traMADol 50 MG Tablet PO ×2 (09:43→16:17)
--- NOTE | 2019-11-13 09:49 | VDLE_ITS ---
Reason For Study: Swelling Procedure LEFT Exam performed portable in patient room. GSV is normal. Technically difficult due to pt body CFV is compressible, spontaneous, phasic, habitus. competent, and demonstrates normal A preliminary report was called and/or faxed augmentation. to [facility]. FV is compressible, spontaneous, phasic, competent and demonstrates normal augmentation. POP V is compressible, spontaneous, phasic, competent and demonstrates normal augmentation. T/P Trunk is compressible. PTV is compressible. LT PerV is compressible. Interpretation Summary There is no evidence of left lower extremity deep vein thrombosis. Left great saphenous vein appears patent and compressible segmentally. Technically limited examination secondary to body habitus Ordering Physician: Nayely Ferrera Referring Physician: KARIE Monge M.D. Performed By: Courtney Kent RVT
--- NOTE | 2019-11-13 09:49 | US_ITS ---
STUDY: RENAL ULTRASOUND - COMPLETE REASON FOR EXAM: Female, 68 years old. Recurrent nephrolithiasis TECHNIQUE: Ultrasound evaluation of the kidneys was performed with real-time and static mark-scale imaging. COMPARISON: None. FINDINGS: RIGHT KIDNEY: Normal location of the right kidney, which is normal in size. The right kidney measures 10.1 x 6.0 x 6.1 cm. There is a normal cortex of the right kidney. The renal cortex measures 1.3 cm. There is no right renal mass or cyst. There are no right renal calculi. There is no right hydronephrosis. DISTAL RIGHT URETER: There is non-visualization of the distal right ureter. LEFT KIDNEY: Normal location of the left kidney, which is normal in size. The left kidney measures 10.2 x 4.8 x 5.3 cm. There is a normal cortex of the left kidney. The renal cortex measures 1.0 cm. There is no left renal mass or cyst. There are no left renal calculi. There is no left hydronephrosis. DISTAL LEFT URETER: There is non-visualization of the distal left ureter. BLADDER: The urinary bladder is not distended for evaluation. US/Kidney and Bladder IMPRESSION: Normal ultrasound of the kidneys. Electronically Signed: Bora Betancur DO at 16:02 EDT Tel [phone], Service support ,
--- NOTE | 2019-11-13 10:22 | NURSING ---
doppler studies LE being completed in room
[2019-11-13 11:30] LABS: Bedside Glucose 202 mg/dL (70-110)
--- NOTE | 2019-11-13 11:31 | PN_ITS ---
<Dia Cosme - Last Filed: 11/13/19 11:38> Patient Problems: Active and Suspected Problems (Last Reviewed 11/10/19 @ 13:59 by Juanito Jara) Cellulitis of leg, left (Acute) Right flank pain (Acute) Left leg swelling (Acute) Cystitis (Acute) Subjective: Patient seen and examined. Left lower extremity redness improving however continues to have left calf pain. Complains of right flank pain 06/22. Denies urinary symptoms. Denies fever, chills. - Physical Exam Vitals/I&O's: Vital Signs Temp Pulse Resp BP Pulse Ox 97.9 F 61 18 165/80 H 99 11/13/19 08:30 11/13/19 08:30 11/13/19 08:30 11/13/19 08:30 11/13/19 08:30 Oxygen Delivery Method Room Air Weight: 279 lb 15.793 oz Body Mass Index (BMI) 49.6 Intake and Output for Last 24 Hours 11/11/19 11/12/19 11/13/19 23:59 23:59 23:59 Intake Total 1110 / 1110 610 / 610 Output Total 800 / 800 Balance 1110 / 1110 -190 / -190 General: Alert, Oriented x3, Cooperative HEENT: Atraumatic, PERRLA, EOMI, Normocephalic Neck: Supple, No JVD, Negative Carotid Bruits Lungs: Clear to auscultation, Diminished Cardiovascular: Regular rate, No murmurs Abdomen: Bowel Sounds Present, Soft, Non Tender, Non-Distended, Obese Extremities: No clubbing, No cyanosis, No edema, Capillary Refill Less than 3 Seconds Skin: No rashes, No breakdown, - - Left lower extremity erythema improving Musculoskeletal: No Tenderness to Palpation of Joints or Extremities Neurological: Cranial nerves II-XII grossly intact, Neuro grossly intact Psych/Mental Status: Normal Affect, Appropriate Laboratory Results 11/12/19 16:00: WBC 9.0, RBC 4.85, Hgb 12.6, Hct 41.1, MCV 84.7, MCH 26.0 L, MCHC 30.7 L, RDW Std Deviation 44.8 H, RDW Coeff of Tara 14.6, Plt Count 276, MPV 10.2, Immature Gran % (Auto) 0.600, Neut % (Auto) 66.1, Lymph % (Auto) 22.2, [place] % (Auto) 7.6, Eos % (Auto) 3.2, Baso % (Auto) 0.3, Absolute Neuts (auto) 5.9, Absolute Lymphs (auto) 2.00, Nucleated RBC % 0 11/12/19 16:00: Sodium 138, Potassium 4.0, Chloride 104, Carbon Dioxide 29.0, Anion Gap 5, BUN 14, Creatinine 1.17 H, Estim Creat Clear Calc 39.13, Est GFR (MDRD) Af Amer 59 L, Est GFR (MDRD) Non-Af 49 L, BUN/Creatinine Ratio 12.0, Glucose 138 H, Calcium 9.0, Total Bilirubin 0.40, AST 26, ALT 49, Alkaline Phosphatase 97, Total Protein 7.7, Albumin 3.5, Globulin 4.2, Albumin/Globulin Ratio 0.8 L, Lipase 111 11/12/19 16:00: Lactic Acid 1.2 11/12/19 16:00: Urine Color Yellow, Urine Clarity Sl. Cloudy, Urine pH 5.0, Ur Specific [place] 1.015, Urine Protein Negative, Urine Glucose (UA) Normal, Urine Ketones Negative, Urine Occult Blood Negative, Urine Nitrite Negative, Urine Bilirubin Negative, Urine Urobilinogen Normal, Ur Leukocyte Esterase Negative, Urine RBC 0 SEEN, Urine WBC 0 SEEN, Ur Squamous Epith Cells 0 SEEN, Urine Bacteria 0 SEEN, Urine Mucus 0 SEEN 11/12/19 22:35: POC Glucose 109 11/13/19 06:15: WBC 7.1, RBC 4.28, Hgb 11.3 L, Hct 36.5 L, MCV 85.3, MCH 26.4 L, MCHC 31.0 L, RDW Std Deviation 45.1 H, RDW Coeff of Tara 14.7 H, Plt Count 241, MPV 9.9, Immature Gran % (Auto) 0.400, Neut % (Auto) 58.0, Lymph % (Auto) 29.5, [place] % (Auto) 8.9, Eos % (Auto) 2.8, Baso % (Auto) 0.4, Absolute Neuts (auto) 4.1, Absolute Lymphs (auto) 2.10, Nucleated RBC % 0 11/13/19 06:15: Sodium 140, Potassium 3.8, Chloride 108 H, Carbon Dioxide 28.0, Anion Gap 4 L, BUN 16, Creatinine 1.26 H, Estim Creat Clear Calc 36.33, Est GFR (MDRD) Af Amer 55 L, Est GFR (MDRD) Non-Af 45 L, BUN/Creatinine Ratio 12.7, Glucose 75, Calcium 8.4 L, Total Bilirubin 0.40, AST 28, ALT 38, Alkaline Phosphatase 76, Total Protein 6.4, Albumin 2.8 L, Globulin 3.6, Albumin/Globulin Ratio 0.8 L 11/13/19 07:05: POC Glucose 85 11/13/19 11:26: POC Glucose 202 H Current Medications Acetaminophen (Tylenol) 650 mg PO Q6H PRN PRN PRN Reason: Pain Score 1-10/Temp > 100.7 F Last Admin: 11/13/19 02:47 Dose: 650 mg Documented by: Albuterol Sulfate (Ventolin Aerosols) 2.5 mg INHALATION Q4H PRN PRN PRN Reason: SOB/WEEZING Atorvastatin Calcium (Lipitor) 5 mg PO QHS [facility] Last Admin: 11/12/19 22:39 Dose: 5 mg Documented by: Bupropion HCl (Wellbutrin Xl) 300 mg PO DAILY [facility] Last Admin: 11/13/19 08:54 Dose: 300 mg Documented by: Dextrose (D50w Syringe) 0 gm IV X1 PRN; Protocol PRN Reason: Hypoglycemia Enoxaparin Sodium (Lovenox) 40 mg SC BID [facility] Last Admin: 11/13/19 08:53 Dose: 40 mg Documented by: Glucagon () 1 mg IM .X1 PRN PRN Reason: Hypoglycemia Cefazolin Sodium 2 gm/ Sodium (Chloride) 110 mls @ 150 mls/hr IV Q8 [facility] Last Infusion: 11/13/19 07:03 Dose: Infused Documented by: Insulin Glargine (Lantus (Bkc)) 40 units SC BID [facility] Last Admin: 11/13/19 08:54 Dose: 40 u Documented by: Insulin Human Lispro (Humalog Kwikpen (Bkc)) 0 unit SC ACHS [facility]; Protocol Last Admin: 11/13/19 07:05 Dose: Not Given Documented by: Losartan Potassium (Cozaar) 100 mg PO DAILY [facility] Last Admin: 11/13/19 08:53 Dose: 100 mg Documented by: Ondansetron HCl (Zofran) 4 mg IV Q8H PRN PRN PRN Reason: NAUSEA/VOMITING Pantoprazole Sodium (Protonix) 20 mg PO DAILY R[facility]ARD Last Admin: 11/13/19 08:54 Dose: 20 mg Documented by: Sodium Chloride () 10 - 40 ml IV UD PRN PRN Reason: SALINE FLUSH Medical Necessity - Tobacco Use Smoking Status: Never smoker Assessment/Plan All Active Problems (Last Reviewed 11/10/19 @ 13:59 by Juanito Jara) Cellulitis of leg, left (Acute) Right flank pain (Acute) Left leg swelling (Acute) Cystitis (Acute) Urinary tract infection (Acute) Stone, kidney (Resolved) Diarrhea (Acute) Vertigo (Resolved) 1. Acute left lower extremity cellulitis-duplex ultrasound 11/08/2019 negative for DVT. Failed outpatient treatment with doxycycline. Continue IV cefazolin. Elevate left lower extremity. Improving. 2. Recent UTI-ongoing right flank pain. UA on admission unremarkable. Recent Diflucan and treatment with Cipro. Urine culture and blood culture pending. 3. History of recurrent nephrolithiasis-CT of abdomen and pelvis 11/08/2019 demonstrated small 2 mm nonobstructing stone in the posterior aspect of the midpole of the right kidney. Normal left kidney. Chronic mild right perinephric stranding. Renal ultrasound ordered for further evaluation. 4. Hypertension-stable, continue losartan. 5. Hyperlipidemia-continue statin. 6. Uterine cancer in remission 7. Type 2 diabetes [id number]-Eurw-Odvmc with sliding scale insulin. 8. Morbid obesity-encouraged diet and lifestyle modifications. 9. Hypothyroidism-continue Synthroid regimen. 10. Anxiety/depression-continue Wellbutrin. 11. ANISHA-on BiPAP. 12. GERD-continue omeprazole. 13. Chronic kidney disease stage III- at baseline. DVT prophylaxis-Lovenox subcu This patient was seen by JUSTIN Parker under the supervision of Dr. Ferrera. <Nayely Ferrera - Last Filed: 11/13/19 12:18> - Physical Exam Vitals/I&O's: Vital Signs Temp Pulse Resp BP Pulse Ox 97.9 F 61 18 165/80 H 99 11/13/19 08:30 11/13/19 08:30 11/13/19 08:30 11/13/19 08:30 11/13/19 08:30 Oxygen Delivery Method Room Air Weight: 127 kg Body Mass Index (BMI) 49.6 Intake and Output for Last 24 Hours 11/11/19 11/12/19 11/13/19 23:59 23:59 23:59 Intake Total 1110 / 1110 610 / 610 Output Total 800 / 800 Balance 1110 / 1110 -190 / -190 Laboratory Results 11/12/19 16:00: WBC 9.0, RBC 4.85, Hgb 12.6, Hct 41.1, MCV 84.7, MCH 26.0 L, MCHC 30.7 L, RDW Std Deviation 44.8 H, RDW Coeff of Tara 14.6, Plt Count 276, MPV 10.2, Immature Gran % (Auto) 0.600, Neut % (Auto) 66.1, Lymph % (Auto) 22.2, [place] % (Auto) 7.6, Eos % (Auto) 3.2, Baso % (Auto) 0.3, Absolute Neuts (auto) 5.9, Absolute Lymphs (auto) 2.00, Nucleated RBC % 0 11/12/19 16:00: Sodium 138, Potassium 4.0, Chloride 104, Carbon Dioxide 29.0, Anion Gap 5, BUN 14, Creatinine 1.17 H, Estim Creat Clear Calc 39.13, Est GFR (MDRD) Af Amer 59 L, Est GFR (MDRD) Non-Af 49 L, BUN/Creatinine Ratio 12.0, Glucose 138 H, Calcium 9.0, Total Bilirubin 0.40, AST 26, ALT 49, Alkaline Phosphatase 97, Total Protein 7.7, Albumin 3.5, Globulin 4.2, Albumin/Globulin Ratio 0.8 L, Lipase 111 11/12/19 16:00: Lactic Acid 1.2 11/12/19 16:00: Urine Color Yellow, Urine Clarity Sl. Cloudy, Urine pH 5.0, Ur Specific [place] 1.015, Urine Protein Negative, Urine Glucose (UA) Normal, Urine Ketones Negative, Urine Occult Blood Negative, Urine Nitrite Negative, Urine Bilirubin Negative, Urine Urobilinogen Normal, Ur Leukocyte Esterase Negative, Urine RBC 0 SEEN, Urine WBC 0 SEEN, Ur Squamous Epith Cells 0 SEEN, Urine Bacteria 0 SEEN, Urine Mucus 0 SEEN 11/12/19 22:35: POC Glucose 109 11/13/19 06:15: WBC 7.1, RBC 4.28, Hgb 11.3 L, Hct 36.5 L, MCV 85.3, MCH 26.4 L, MCHC 31.0 L, RDW Std Deviation 45.1 H, RDW Coeff of Tara 14.7 H, Plt Count 241, MPV 9.9, Immature Gran % (Auto) 0.400, Neut % (Auto) 58.0, Lymph % (Auto) 29.5, [place] % (Auto) 8.9, Eos % (Auto) 2.8, Baso % (Auto) 0.4, Absolute Neuts (auto) 4.1, Absolute Lymphs (auto) 2.10, Nucleated RBC % 0 11/13/19 06:15: Sodium 140, Potassium 3.8, Chloride 108 H, Carbon Dioxide 28.0, Anion Gap 4 L, BUN 16, Creatinine 1.26 H, Estim Creat Clear Calc 36.33, Est GFR (MDRD) Af Amer 55 L, Est GFR (MDRD) Non-Af 45 L, BUN/Creatinine Ratio 12.7, Glucose 75, Calcium 8.4 L, Total Bilirubin 0.40, AST 28, ALT 38, Alkaline Phosphatase 76, Total Protein 6.4, Albumin 2.8 L, Globulin 3.6, Albumin/Globulin Ratio 0.8 L 11/13/19 07:05: POC Glucose 85 11/13/19 11:26: POC Glucose 202 H Current Medications Acetaminophen (Tylenol) 650 mg PO Q6H PRN PRN PRN Reason: Pain Score 1-10/Temp > 100.7 F Last Admin: 11/13/19 02:47 Dose: 650 mg Documented by: Albuterol Sulfate (Ventolin Aerosols) 2.5 mg INHALATION Q4H PRN PRN PRN Reason: SOB/WEEZING Atorvastatin Calcium (Lipitor) 5 mg PO QHS [facility] Last Admin: 11/12/19 22:39 Dose: 5 mg Documented by: Bupropion HCl (Wellbutrin Xl) 300 mg PO DAILY [facility] Last Admin: 11/13/19 08:54 Dose: 300 mg Documented by: Dextrose (D50w Syringe) 0 gm IV X1 PRN; Protocol PRN Reason: Hypoglycemia Enoxaparin Sodium (Lovenox) 40 mg SC BID [facility] Last Admin: 11/13/19 08:53 Dose: 40 mg Documented by: Glucagon () 1 mg IM .X1 PRN PRN Reason: Hypoglycemia Cefazolin Sodium 2 gm/ Sodium (Chloride) 110 mls @ 150 mls/hr IV Q8 [facility] Last Infusion: 11/13/19 07:03 Dose: Infused Documented by: Insulin Glargine (Lantus (Bk)) 40 units SC BID [facility] Last Admin: 11/13/19 08:54 Dose: 40 u Documented by: Insulin Human Lispro (Humalog Kwikpen ([facility])) 0 unit SC ACHS [facility]; Protocol Last Admin: 11/13/19 11:56 Dose: 1 u Documented by: Losartan Potassium (Cozaar) 100 mg PO DAILY [facility] Last Admin: 11/13/19 08:53 Dose: 100 mg Documented by: Ondansetron HCl (Zofran) 4 mg IV Q8H PRN PRN PRN Reason: NAUSEA/VOMITING Pantoprazole Sodium (Protonix) 20 mg PO DAILY [facility] Last Admin: 11/13/19 08:54 Dose: 20 mg Documented by: Sodium Chloride () 10 - 40 ml IV UD PRN PRN Reason: SALINE FLUSH Assessment/Plan This patient was seen in conjunction with Dia Cosme COMPUTER GAME PROGRAMMER. I have independently interviewed and examined the patient and reviewed pertinent historical, laboratory, and other data. Please refer to her note for patient's presentation, findings, and recommendations. Patient was seen and examined. Complains of pain in the LLE and right flank. Denies any fever or chills. No acute events overnight. Vitals were reviewed -stable Physical Exam: Gen: Comfortable, not pale, not jaundiced, alert oriented x3, morbidly obese CVS:HS I +II, regular, no murmurs RESP: Diminished at lung bases GI: BS present and normal, nontender, no palpable organs, right flank tenderness, guarding EXT: Left lower extremity redness, tenderness, with differential warmth, improving Labs reviewed: ASSESSMENT: 1. Acute left lower extremity cellulitis 2. Recent UTI 3. Right kidney stone, nonobstructing, history of recurrent nephrolithiasis 4. Hypertension 5. Hyperlipidemia 6. Uterine CA in remission 7. Type II DM 8. Morbid obesity 9. Hypothyroidism 10.Anxiety/depression 11. ANISHA on BiPAP Meds reviewed Plan: Continue on IV cefazolin Follow-up on urine culture Doppler USG of left lower leg USG of kidney and bladder Continue to hold metformin Continue on home insulin, blood glucose checks with insulin sliding scale Continue to elevate the left lower extremity Repeat blood work in a.m. Inpatient E&M: [id number] [facility] [place] [facility] L2
[2019-11-13] MEDS: Insulin Lispro 100 UNIT/ML INSULN.PEN SC ×3 (11:56→22:05)
[2019-11-13 12:50] LABS: Hemoglobin A1c 7.9 % (3.8-5.6)
--- NOTE | 2019-11-13 13:15 | CASEMGMT ---
RN CM Face to Face with patient for initial transition planning/care coordination assessment. RN CM introduced self and role at [facility]. Patient sitting in chair, alert and oriented, daughter at bedside. Patient willing to participate in assessment and is able to answer all questions appropriately. Care providers, pharmacy, and demographics verified. Patient wishes to discharge home, denies need for home health at this time. Patient states he has no further needs or concerns at this time. CM to follow for discharge planning needs that may arise. PCP: Saleem Specialists: Keanu, surgeon; Rai pulmonology Preferred Pharmacy: [facility] Insurance: [employer] Prescription Benefit: yes Living Will/HPOA: yes, daughter Alexandria Ruiz LNOK: daughter Living Arrangements: Patient lives alone in a single story apt with 4 steps and railing to enter the home. Patient states she is independent at home. Transportation: self/daughter DME/HHC: Patient has BiPap at home, denies further DME. No previous HHC Disposition Plan: Patient to discharge home with family support and follow-up plans in place. Courtney GUARDADO, RN, CM
[2019-11-13 13:43] VITALS: BP 134/69; PULSE 85; RESP 18; TEMP 37.2; O2SAT 98
--- NOTE | 2019-11-13 14:03 | CHAPLAIN ---
Type of Pastoral Visit _x__ Initial Visit ___ Follow-up Visit ___ On-call Visit ___ General Patient Visit ___ Spiritual Assessment ___ Family Conference ___ Bereavement ___ Rapid Response ___ Code Blue ___ Other (describe below) Pastoral Care Referral From _x__ Patient ___ Family ___ Nurse ___ Physician ___ Bridal Consultant ___ Floor Coverer Apprentice ___ Other (describe below) Sacrament/Intervention _x__ Active listening ___ Anointing ___ Moravian ___ Bereavement ___ Communion _x__ Josette exploration ___ _x__ Life review _x__ Prayer ___ Reconciliation ___ Sacrament of Sick ___ Supportive presence ___ Wedding ___ Other (describe below) Pastoral Comments patient and daughter together in room; pt states she would like to be home but knows she needs to stay and will do so; pt says she feels bad that she is letting her co-workers down because unable to work today; daughter is supportive; pt has amish connection; pt is talkative but indicates she has support and no other concerns
--- NOTE | 2019-11-13 15:14 | NURSING ---
pt taken to US in bed-pt waiting pain meds (nurse awaiting Dr and Rx to put them in)-US tech unwilling to come to unit @ this time to do exam
[2019-11-13 16:35] LABS: Bedside Glucose 191 mg/dL (70-110)
[2019-11-13] MEDS: Morphine 2 MG/ML Syringe 1 MG IV (20:12)
[2019-11-13 20:20] VITALS: BP 148/51; PULSE 68; RESP 18; TEMP 37; O2SAT 97
[2019-11-13] MEDS: Atorvastatin Calcium 10 MG Tablet 5 MG PO (22:04)
[2019-11-13 22:15] LABS: Bedside Glucose 191 mg/dL (70-110)
[2019-11-14] MEDS: traMADol 50 MG Tablet PO ×2 (02:47→09:03)
[2019-11-14 02:51] VITALS: BP 142/54; PULSE 58; RESP 16; TEMP 36.8; O2SAT 97
[2019-11-14] MEDS: Cefazolin 2 GM in 0.9% Normal Saline 100 ML IV (05:33)
[2019-11-14 06:51] LABS: Bedside Glucose 109 mg/dL (70-110)
[2019-11-14 07:00] LABS: Anion Gap 1 (5-15); BUN 16 mg/dL (7-18); BUN/Creat Ratio 12.7 RATIO (10-20); Calcium,Total 8.6 mg/dL (8.5-10.1); Chloride 109 mmol/L (98-107); Creatinine, Serum 1.26 mg/dL (0.55-1.02); EST Glomerular Filtration Rate 45 mL/min (>60); Est Glom Filt Rate - Afr Amer 55 mL/min (>60); Estimated Creatinine Clearance 36.33 ml/min; Glucose 116 mg/dL (74-106); Potassium 4.2 mmol/L (3.5-5.1); Sodium Level 139 mmol/L (136-145)
[2019-11-14 09:01] VITALS: BP 143/55; PULSE 65; RESP 18; TEMP 36.6; O2SAT 97
[2019-11-14] MEDS: Pantoprazole Sodium 20 MG Tablet PO (09:05)
[2019-11-14] MEDS: Enoxaparin 40 MG/0.4 ML Syringe SC (09:05)
[2019-11-14] MEDS: Losartan Potassium 100 MG Tablet PO (09:05)
[2019-11-14] MEDS: buPROPion (XL) 300 MG TABLET.XL PO (09:05)
[2019-11-14] MEDS: Furosemide 20 MG/2 ML VIAL IV (09:36)
[2019-11-14] MEDS: 0.9% Saline Lock 10 ML Syringe IV (09:36)
--- NOTE | 2019-11-14 10:00 | DCINST_ITS ---
- Discharge Diagnoses Current Active Problems: Current Active and Chronic Problems (Last Reviewed 11/10/19 @ 13:59 by Juanito Jara) Cellulitis of leg, left (Acute) Right flank pain (Acute) Left leg swelling (Acute) Cystitis (Acute) You will use the following diet at home:: Calorie/Carbohydrate Controlled (specify 1200, 1400, etc), Cardiac Discharge Activity: Return to Normal Activity Call your doctor if you observe: Shortness of breath, Dizziness, Fainting spells, Chest pain Allergies/Adverse Reactions: Allergies ondansetron HCl [From Zofran (as hydrochloride)] Allergy (Verified 11/12/19 14:21) Rash oxycodone HCl [From Percocet] Adverse Reaction (Verified 11/12/19 14:21) Rash Penicillins [PCN] Adverse Reaction (Verified 11/12/19 14:21) Other states she gets a yeast infection propoxyphene napsylate [From Darvocet-N 100] Adverse Reaction (Verified 11/12/19 14:21) Rash shellfish derived Adverse Reaction (Verified 11/12/19 14:21) Rash Medications to take at Discharge Lovastatin [Mevacor] 20 mg PO QHS 08/25/14 Insulin Glargine,Hum.rec.anlog [Lantus] 40 unit SQ BID 10/24/15 insulin aspart U-100 100 unit/mL (3 mL) subcutaneous pen 25 unit SC TIDCM PRN ml 10/11/17 albuterol sulfate 90 mcg/actuation aerosol inhaler 1 puff INHALATION Q6H PRN 03/29/18 Losartan Potassium 100 mg PO DAILY 05/25/18 metformin 500 mg tablet 500 mg PO BIDCM tab 11/28/18 levothyroxine 300 mcg tablet 300 mcg PO DAILY tab 08/10/19 Dulaglutide [Trulicity] 1.5 mg SQ WE 08/14/19 Omeprazole [Prilosec] 20 mg PO DAILY 10/09/19 buPROPion XL [Wellbutrin Xl] 300 mg PO DAILY 11/12/19 Cefdinir [Omnicef [equiv]] 300 mg PO Q12H #14 cap 11/14/19 The following prescriptions were given: Cefdinir [Omnicef [equiv]] 300 mg PO Q12H #14 cap Transmission Status: Pending to [facility] Primary Care Physician: Kyler Monge III, MD [Primary Care Provider] - Please follow up with your Primary Care Physician in: 1 Week Test Results: Test results from this visit will be discussed in further detail at your follow- up appointment, if applicable. Please Follow Up With: Jaspal Isidro MD When: as needed Proposed Discharge Date: 11/14/19
--- NOTE | 2019-11-14 10:03 | DS.PCM_ITS ---
<Dia Cosme - Last Filed: 11/14/19 10:08> Discharge Date and Diagnosis Date of Admission: 11/12/19 Date of Discharge: 11/14/19 - Primary Discharge Diagnosis Acute Problems: Active Problems (Last Reviewed 11/10/19 @ 13:59 by Juanito Jara) 1. Acute left lower extremity cellulitis 2. Recent UTI 3. History of recurrent nephrolithiasis 4. Hypertension 5. Hyperlipidemia 6. Uterine cancer in remission 7. Type 2 diabetes mellitus 8. Morbid obesity 9. Hypothyroidism 10. Anxiety/depression 11. ANISHA 12. GERD 13. Chronic kidney disease stage III - Secondary Discharge Diagnosis Chronic Problems: Chronic Problems (Last Reviewed 11/10/19 @ 13:59 by Juanito Jara) History of esophagogastroduodenoscopy (EGD) (Chronic) 04/11/18 Contusion of left shoulder, initial encounter (Chronic) Restrictive ventilatory defect (Chronic) ANISHA (obstructive sleep apnea) (Chronic) BiPAP 18/14 cm of water S/P colonoscopy (Chronic) 2017 S/P wrist surgery (Chronic) S/P hysterectomy (Chronic) Status post laparoscopic cholecystectomy (Chronic) HTN (hypertension) (Chronic) Cancer (Chronic) Uterine Kidney disease (Chronic) Hemorrhoids (Chronic) Shoulder pain (Chronic) Diabetes (Chronic) Asthma (Chronic) Thyroid disease (Chronic) Mid back pain on left side (Chronic) Hyperlipidemia (Chronic) Uterine cancer (Chronic) Morbid obesity (Chronic) Dyslipidemia (Chronic) DM2 (diabetes mellitus, type 2) (Chronic) Benign essential HTN (Chronic) Hospital Course and Treatment Imaging Results: Diagnostic Data Renal Ultrasound 11/13/19 09:49 IMPRESSION: Normal ultrasound of the kidneys. Electronically Signed: Bora Betancur DO at 16:02 EDT Tel [phone], Service support , Operations: None Procedures: None Summary of Care Provided: The patient is a 68 year old F admitted 11/12/2019 due to left lower extremity redness, warmth and pain and right flank pain. 1. Acute left lower extremity cellulitis-duplex ultrasound 11/08/2019 negative for DVT. Failed outpatient treatment with doxycycline. IV cefazolin during admission with significant improvement. Repeat duplex ultrasound repeated due to ongoing left calf pain and again negative for DVT. Discharged on Omnicef 300 mg twice daily to complete course. Follow-up with PCP in 1 week. 2. Recent UTI-ongoing right flank pain. UA on admission unremarkable. Recent Diflucan and treatment with Cipro. Urine culture growing mixed gram-positive organisms, low colony count. No acute UTI. Discharged on Omnicef as noted above. 3. History of recurrent nephrolithiasis-CT of abdomen and pelvis 11/08/2019 demonstrated small 2 mm nonobstructing stone in the posterior aspect of the midpole of the right kidney. Normal left kidney. Chronic mild right perinephric stranding. Renal ultrasound normal. Follow-up with urology as needed. 4. Hypertension-stable, continue losartan. 5. Hyperlipidemia-continue statin. 6. Uterine cancer in remission 7. Type 2 diabetes mellitus-continue home metformin regimen. 8. Morbid obesity-encouraged diet and lifestyle modifications. 9. Hypothyroidism-continue Synthroid regimen. 10. Anxiety/depression-continue Wellbutrin. 11. ANISHA-on BiPAP. 12. GERD-continue omeprazole. 13. Chronic kidney disease stage III- at baseline. General: Alert, Oriented x3, Cooperative HEENT: Atraumatic, PERRLA, EOMI, Normocephalic Neck: Supple, No JVD, Negative Carotid Bruits Lungs: Clear to auscultation, Diminished Cardiovascular: Regular rate, No murmurs Abdomen: Bowel Sounds Present, Soft, Non Tender, Non-Distended, Obese Extremities: No clubbing, No cyanosis, No edema, Capillary Refill Less than 3 Seconds Skin: No rashes, No breakdown, - - Left lower extremity erythema improving Musculoskeletal: No Tenderness to Palpation of Joints or Extremities Neurological: Cranial nerves II-XII grossly intact, Neuro grossly intact Psych/Mental Status: Normal Affect, Appropriate Patient seen and examined prior to discharge. Physical assessment as noted above. Patient is stable for discharge with follow up recommendations as noted above. This patient was seen by JUSTIN Parker under the supervision of Dr. Ferrera. - Physical Exam Vitals/I&O's: Vital Signs Temp Pulse Resp BP Pulse Ox 97.9 F 65 18 143/55 H 97 11/14/19 09:01 11/14/19 09:01 11/14/19 09:01 11/14/19 09:01 11/14/19 09:01 Oxygen Delivery Method Room Air Weight: 280 lb 13.903 oz Body Mass Index (BMI) 49.6 Intake and Output for Last 24 Hours 11/12/19 11/13/19 11/14/19 23:59 23:59 23:59 Intake Total 1110 / 1110 1780 / 1980 410 / 410 Output Total 800 / 800 Balance 1110 / 1110 980 / 1180 410 / 410 Microbiology Past 72 Hours 11/12/19 16:00 Urine, Clean Catch Urine Culture - Final Mixed Gram Positive Organisms Laboratory Results 11/13/19 06:15: Hemoglobin A1c 7.9 H 11/13/19 11:26: POC Glucose 202 H 11/13/19 16:21: POC Glucose 191 H 11/13/19 22:03: POC Glucose 191 H 11/14/19 06:13: WBC Pending, RBC Pending, Hgb Pending, Hct Pending, MCV Pending, MCH Pending, MCHC Pending, RDW Std Deviation Pending, RDW Coeff of Tara Pending, Plt Count Pending 11/14/19 06:13: Sodium 139, Potassium 4.2, Chloride 109 H, Carbon Dioxide 29.0, Anion Gap 1 L, BUN 16, Creatinine 1.26 H, Estim Creat Clear Calc 36.33, Est GFR (MDRD) Af Amer 55 L, Est GFR (MDRD) Non-Af 45 L, BUN/Creatinine Ratio 12.7, Glucose 116 H, Calcium 8.6 11/14/19 06:44: POC Glucose 109 Current Medications Acetaminophen (Tylenol) 650 mg PO Q6H PRN PRN PRN Reason: Pain Score 1-10/Temp > 100.7 F Last Admin: 11/13/19 15:34 Dose: 650 mg Documented by: Albuterol Sulfate (Ventolin Aerosols) 2.5 mg INHALATION Q4H PRN PRN PRN Reason: SOB/WEEZING Atorvastatin Calcium (Lipitor) 5 mg PO QHS [facility] Last Admin: 11/13/19 22:04 Dose: 5 mg Documented by: Bupropion HCl (Wellbutrin Xl) 300 mg PO DAILY [facility] Last Admin: 11/14/19 09:05 Dose: 300 mg Documented by: Dextrose (D50w Syringe) 0 gm IV X1 PRN; Protocol PRN Reason: Hypoglycemia Enoxaparin Sodium (Lovenox) 40 mg SC BID [facility] Last Admin: 11/14/19 09:05 Dose: 40 mg Documented by: Glucagon () 1 mg IM .X1 PRN PRN Reason: Hypoglycemia Cefazolin Sodium 2 gm/ Sodium (Chloride) 110 mls @ 150 mls/hr IV Q8 [facility] Last Infusion: 11/14/19 06:17 Dose: Infused Documented by: Insulin Glargine (Lantus ([facility])) 40 units SC BID [facility] Last Admin: 11/14/19 09:19 Dose: 40 u Documented by: Insulin Human Lispro (Humalog Kwikpen ([facility])) 0 unit SC ACHS [facility]; Protocol Last Admin: 11/14/19 06:49 Dose: Not Given Documented by: Losartan Potassium (Cozaar) 100 mg PO DAILY [facility] Last Admin: 11/14/19 09:05 Dose: 100 mg Documented by: Morphine Sulfate () 1 mg IV Q4H PRN PRN PRN Reason: pain 6-10/10 Last Admin: 11/13/19 20:12 Dose: 1 mg Documented by: Ondansetron HCl (Zofran) 4 mg IV Q8H PRN PRN PRN Reason: NAUSEA/VOMITING Pantoprazole Sodium (Protonix) 20 mg PO DAILY [facility] Last Admin: 11/14/19 09:05 Dose: 20 mg Documented by: Sodium Chloride () 10 - 40 ml IV UD PRN PRN Reason: SALINE FLUSH Last Admin: 11/14/19 09:36 Dose: 10 ml Documented by: Tramadol HCl (Ultram) 50 mg PO Q6H PRN PRN PRN Reason: Pain Score 4-5/10 Last Admin: 11/14/19 09:03 Dose: 50 mg Documented by: Discharge Diet: Low fat/ Low Cholesterol, Carb Control Diet Discharge Activity: Return to Normal Activity Call your doctor if you observe: Shortness of breath, Dizziness, Fainting spells, Chest pain Home Medications: Medications to take at Discharge Lovastatin [Mevacor] 20 mg PO QHS 08/25/14 Insulin Glargine,Hum.rec.anlog [Lantus] 40 unit SQ BID 10/24/15 insulin aspart U-100 100 unit/mL (3 mL) subcutaneous pen 25 unit SC TIDCM PRN ml 10/11/17 albuterol sulfate 90 mcg/actuation aerosol inhaler 1 puff INHALATION Q6H PRN 03/29/18 Losartan Potassium 100 mg PO DAILY 05/25/18 metformin 500 mg tablet 500 mg PO BIDCM tab 11/28/18 levothyroxine 300 mcg tablet 300 mcg PO DAILY tab 08/10/19 Dulaglutide [Trulicity] 1.5 mg SQ WE 08/14/19 Omeprazole [Prilosec] 20 mg PO DAILY 10/09/19 buPROPion XL [Wellbutrin Xl] 300 mg PO DAILY 11/12/19 Cefdinir [Omnicef [equiv]] 300 mg PO Q12H #14 cap 11/14/19 Following Prescriptions Were Given to Patient: Cefdinir [Omnicef [equiv]] 300 mg PO Q12H #14 cap Transmission Status: Received by [facility] Primary Care Physician: Kyler Monge III, MD [Primary Care Provider] - Please follow up with your Primary Care Physician in: 1 Week Please Follow Up With: Jaspal Isidro MD When: as needed Disposition: Home Minutes spent on discharge:: 35 Patient Condition:: Stable Medical Necessity - Tobacco Use Smoking Status: Never smoker Meaningful Use Info Meaningful Use Diagnoses (Choose all that apply): None applicable <Paintsil,Davis - Last Filed: 11/14/19 12:59> Discharge Date and Diagnosis - Secondary Discharge Diagnosis Chronic Problems: Chronic Problems (Last Reviewed 11/10/19 @ 13:59 by Juanito Jara) History of esophagogastroduodenoscopy (EGD) (Chronic) 04/11/18 Contusion of left shoulder, initial encounter (Chronic) Restrictive ventilatory defect (Chronic) ANISHA (obstructive sleep apnea) (Chronic) BiPAP 18/14 cm of water S/P colonoscopy (Chronic) 2017 S/P wrist surgery (Chronic) S/P hysterectomy (Chronic) Status post laparoscopic cholecystectomy (Chronic) HTN (hypertension) (Chronic) Cancer (Chronic) Uterine Kidney disease (Chronic) Hemorrhoids (Chronic) Shoulder pain (Chronic) Diabetes (Chronic) Asthma (Chronic) Thyroid disease (Chronic) Mid back pain on left side (Chronic) Hyperlipidemia (Chronic) Uterine cancer (Chronic) Morbid obesity (Chronic) Dyslipidemia (Chronic) DM2 (diabetes mellitus, type 2) (Chronic) Benign essential HTN (Chronic) Hospital Course and Treatment Summary of Care Provided: This patient was seen in conjunction with Dia Cosme NP. I have independently interviewed and examined the patient and reviewed pertinent historical, laboratory, and other data. Please refer to her note for patient's presentation, findings, and recommendations. 62-year-old with multiple comorbidities including type II DM, hypertension, morbid obesity who comes in with worsening left lower extremity redness and pain ongoing for 1 week. Patient was recently seen in the urgent care and started on doxycycline. She also complained of right flank pain, had a CAT scan done in the ED 4 days prior to admission that showed a 2 cm nonobstructing stone. Urinalysis was unimpressive Her physical exam was significant for left lower extremity erythema, edema with differential warmth and pain. Patient was admitted to telemetry floor managed on IV cefazolin, elevation of lower extremity. Doppler ultrasound of the left lower extremity was negative for acute DVT. She also had a ultrasound that was reportedly normal. Her urine cultures showed mixed growth. She was discharged on p.o. cefdinir. She will follow-up with her primary care doctor in 1 to 2 weeks. On the day of discharge, patient was seen and examined. Physical Exam: Gen: Comfortable, not pale, not jaundiced, alert oriented x3, morbidly obese CVS:HS I +II, regular, no murmurs RESP: Diminished at lung bases GI: BS present and normal, nontender, no palpable organs, tenderness over the right flank region EXT: Improved left lower extremity redness, tenderness in the posterior lower leg - Physical Exam Vitals/I&O's: Vital Signs Temp Pulse Resp BP Pulse Ox 97.9 F 65 18 143/55 H 97 11/14/19 09:01 11/14/19 09:01 11/14/19 09:01 11/14/19 09:01 11/14/19 09:01 Oxygen Delivery Method Room Air Weight: 127.4 kg Body Mass Index (BMI) 49.6 Intake and Output for Last 24 Hours 11/12/19 11/13/19 11/14/19 23:59 23:59 23:59 Intake Total 1110 / 1110 1780 / 1980 410 / 410 Output Total 800 / 800 Balance 1110 / 1110 980 / 1180 410 / 410 Microbiology Past 72 Hours 11/12/19 16:00 Urine, Clean Catch Urine Culture - Final Mixed Gram Positive Organisms Laboratory Results 11/13/19 06:15: Hemoglobin A1c 7.9 H 11/13/19 16:21: POC Glucose 191 H 11/13/19 22:03: POC Glucose 191 H 11/14/19 06:13: WBC Pending, RBC Pending, Hgb Pending, Hct Pending, MCV Pending, MCH Pending, MCHC Pending, RDW Std Deviation Pending, RDW Coeff of Tara Pending, Plt Count Pending 11/14/19 06:13: Sodium 139, Potassium 4.2, Chloride 109 H, Carbon Dioxide 29.0, Anion Gap 1 L, BUN 16, Creatinine 1.26 H, Estim Creat Clear Calc 36.33, Est GFR (MDRD) Af Amer 55 L, Est GFR (MDRD) Non-Af 45 L, BUN/Creatinine Ratio 12.7, Glucose 116 H, Calcium 8.6 11/14/19 06:44: POC Glucose 109 11/14/19 11:38: POC Glucose 178 H Current Medications Acetaminophen (Tylenol) 650 mg PO Q6H PRN PRN PRN Reason: Pain Score 1-10/Temp > 100.7 F Last Admin: 11/13/19 15:34 Dose: 650 mg Documented by: Albuterol Sulfate (Ventolin Aerosols) 2.5 mg INHALATION Q4H PRN PRN PRN Reason: SOB/WEEZING Atorvastatin Calcium (Lipitor) 5 mg PO QHS [facility] Last Admin: 11/13/19 22:04 Dose: 5 mg Documented by: Bupropion HCl (Wellbutrin Xl) 300 mg PO DAILY [facility] Last Admin: 11/14/19 09:05 Dose: 300 mg Documented by: Dextrose (D50w Syringe) 0 gm IV X1 PRN; Protocol PRN Reason: Hypoglycemia Enoxaparin Sodium (Lovenox) 40 mg SC BID [facility] Last Admin: 11/14/19 09:05 Dose: 40 mg Documented by: Glucagon () 1 mg IM .X1 PRN PRN Reason: Hypoglycemia Cefazolin Sodium 2 gm/ Sodium (Chloride) 110 mls @ 150 mls/hr IV Q8 [facility] Last Infusion: 11/14/19 06:17 Dose: Infused Documented by: Insulin Glargine (Lantus ([facility])) 40 units SC BID [facility] Last Admin: 11/14/19 09:19 Dose: 40 u Documented by: Insulin Human Lispro (Humalog Jimmie ([facility])) 0 unit SC ACHS [facility]; Protocol Last Admin: 11/14/19 06:49 Dose: Not Given Documented by: Losartan Potassium (Cozaar) 100 mg PO DAILY [facility] Last Admin: 11/14/19 09:05 Dose: 100 mg Documented by: Morphine Sulfate () 1 mg IV Q4H PRN PRN PRN Reason: pain 6-10/10 Last Admin: 11/13/19 20:12 Dose: 1 mg Documented by: Ondansetron HCl (Zofran) 4 mg IV Q8H PRN PRN PRN Reason: NAUSEA/VOMITING Pantoprazole Sodium (Protonix) 20 mg PO DAILY [facility] Last Admin: 11/14/19 09:05 Dose: 20 mg Documented by: Sodium Chloride () 10 - 40 ml IV UD PRN PRN Reason: SALINE FLUSH Last Admin: 11/14/19 09:36 Dose: 10 ml Documented by: Tramadol HCl (Ultram) 50 mg PO Q6H PRN PRN PRN Reason: Pain Score 4-5/10 Last Admin: 11/14/19 09:03 Dose: 50 mg Documented by: Inpatient E&M: [id number] Disch Hosp
[2019-11-14 11:45] LABS: Bedside Glucose 178 mg/dL (70-110)
[2019-11-14] MEDS: Insulin Lispro 100 UNIT/ML INSULN.PEN SC (12:43)
[2019-11-14 12:54] VITALS: BP 135/70; PULSE 66; RESP 16; TEMP 37; O2SAT 96
[2019-11-14 14:41] LABS: Hematocrit 38.6 % (37-47); Hemoglobin 11.8 g/dL (12.0-15.0); Mean Corp Hgb Conc 30.6 g/dL (32-36); Mean Corpuscular Hgb 26.2 pg (27.0-32.0); Mean Corpuscular Volume 85.6 fL (81-99); Mean Platelet Vol. 10.8 fl (6.2-12.0); Platelet Count 255 K/mm3 (150-450); RBC Distribution Width CV 14.6 % (11.6-14.6); RBC Distribution Width SD 45.4 fl (35.1-43.9); Red Blood Count 4.51 M/mm3 (4.2-5.4); White Blood Count 7.9 K/mm3 (4.4-11.0)
--- NOTE | 2019-11-15 14:34 | CASEMGMT ---
IVANNA DC PHONE CALL DC DATE: 11/14/2019 DC DISPOSITION: Home DC DIAGNOSIS: cellulitis leg LACE/STRATA: 02/14 F/U APPTS MADE PRIOR TO DC: yes Attempted call to phone. no answer, but messaging did have name identifier so message left with call back information if patient had questions re: instructions, f/u or medications. Sloane ALVAREZN RN ACM
== END 2019-11-14 14:25 | disposition home or self-care (01) | DRG 603 ==
LOC: ED 15:30 → MS3 18:25
PROVIDERS: Nurse Practitioner Family; Admitting Provider Internal Medicine; Emergency Provider Emergency Medicine; PCP Family Medicine; Visit Provider Internal Medicine
DX: L03.116 Cellulitis of left lower limb (principal); Z68.42 Body mass index [BMI] 45.0-49.9, adult; N39.0 Urinary tract infection, site not specified; E78.5 Hyperlipidemia, unspecified; N18.3 Chronic kidney disease, stage 3 (moderate); I12.9 Hypertensive chronic kidney disease with stage 1 through stage 4 chronic kidney disease, or unspecified chronic kidney disease; E11.22 Type 2 diabetes mellitus with diabetic chronic kidney disease; E66.01 Morbid (severe) obesity due to excess calories; G47.33 Obstructive sleep apnea (adult) (pediatric); K21.9 Gastro-esophageal reflux disease without esophagitis; E03.9 Hypothyroidism, unspecified; F32.9 Major depressive disorder, single episode, unspecified; F41.9 Anxiety disorder, unspecified; Z87.440 Personal history of urinary (tract) infections; J45.909 Unspecified asthma, uncomplicated
CPT/HCPCS: 36415; 76770; 80048; 80053; 81001; 82962; 83036; 83605; 83690; 85025; 85027; 87040; 87086; 87088; 87186; 93971; 97802; 99285; J7030; A4216; J1940

== ENCOUNTER 2020-08-26 12:46 | Emergency (ER) | payer MEDICARE, BC, SELFPAY ==
[2020-08-26 12:47] VITALS: BP 187/83; PULSE 69; RESP 18; TEMP 36.8; O2SAT 98; BMI 47.5; BMI 48.4
[2020-08-26] MEDS: proMETHazine 25 MG/ML Syringe 6.25 MG IM (13:21)
[2020-08-26 13:50] LABS: Absolute Neutrophil Count 5.9 X10^3/uL (2.0-7.7); Basophil# 0.03 X10^3/uL; Basophil% 0.3 % (0-1); Eosinophil# 0.14 X10^3/uL; Eosinophils% 1.6 % (0-5); Hematocrit 40.3 % (37-47); Hemoglobin 12.4 g/dL (12.0-15.0); Lymphocyte % 22.3 % (19-41); Mean Corp Hgb Conc 30.8 g/dL (32-36); Mean Corpuscular Hgb 25.5 pg (27.0-32.0); Mean Corpuscular Volume 82.8 fL (81-99); Mean Platelet Vol. 10.2 fl (6.2-12.0); Monocyte# 0.87 X10^3/uL; Monocyte% 9.7 % (0-10); NRBC Flagged by Analyzer 0 % (0-5); Neutrophil # 5.89 X10^3/uL (2.7-7.7); Neutrophil % 65.8 % (47-70); Platelet Count 241 K/mm3 (150-450); RBC Distribution Width CV 14.6 % (11.6-14.6); RBC Distribution Width SD 43.6 fl (35.1-43.9); Red Blood Count 4.87 M/mm3 (4.2-5.4)
[2020-08-26] MEDS: 0.9% Normal Saline 1,000 ML 1000 ML IV (13:54)
[2020-08-26] MEDS: Acetaminophen 500 MG Tablet 1000 MG PO (13:54)
[2020-08-26 14:07] LABS: ALB/GLOB Ratio 0.8 RATIO (0.9-2.4); AST(SGOT) 22 U/L (15-37); Alanine Aminotransfer ALT/SGPT 30 U/L (13-56); Albumin, Serum 3.1 g/dL (3.2-5.0); Alkaline Phosphatase 85 U/L (45-117); Anion Gap 8 (5-15); BUN 20 mg/dL (7-18); BUN/Creat Ratio 19.2 RATIO (10-20); Calcium,Total 9.3 mg/dL (8.5-10.1); Chloride 107 mmol/L (98-107); Creatinine, Serum 1.04 mg/dL (0.55-1.02); EST Glomerular Filtration Rate 56 mL/min (>60); Est Glom Filt Rate - Afr Amer 68 mL/min (>60); Estimated Creatinine Clearance 41.52 ml/min; Globulin 3.7 g/dL (2.2-4.2); Glucose 129 mg/dL (74-106); Potassium 4.3 mmol/L (3.5-5.1); Protein, Total 6.8 g/dL (6.4-8.2); Sodium Level 142 mmol/L (136-145)
[2020-08-26 14:23] LABS: Mucous, Urine 0 SEEN /hpf (<or=2+)
[2020-08-26 14:26] LABS: Color, Urine Yellow (Yellow); Glucose, Dipstick 50 mg/dl (Normal); Ketone-Dipstick Negative (Negative); Leukocyte Esterase-Dipstick 100 /ul (Negative); Nitrite-Dipstick Positive (Negative); Occult Blood-Urine 10 /ul (Negative); Protein-Dipstick Negative (Negative); Urine Bilirubin Dipstick Negative (Negative); Urine Clarity Sl. Cloudy (Clear); Urine Urobilinogen Normal (Normal)
--- NOTE | 2020-08-26 14:40 | EDS_ITS ---
HPI History of Present Illness Chief Complaint: Complaint Informant: patient Onset/Context/Timing Context: Gradual Onset Timing: Continuous Quality: Burning, aching Location: Low back Worsened by: Urination Relieved by: Nothing Narrative Narrative: Patient presents with possible urinary tract infection. Patient states she has a history of prior urinary tract infections. Patient is not currently on any antibiotics for urinary tract infection. Patient states she has been having some burning with urination over the last couple days. Patient states she has had fevers of 99 at home. Patient also admits to some chills. Patient admits to headache and low back pain. Patient also admits to some nausea but denies any vomiting. [facility] Medical History Asthma Cancer Diabetes Diarrhea Hemorrhoids HTN (hypertension) Hyperthyroidism Kidney disease Shoulder pain Thyroid disease Home Medications lovastatin 20 mg PO QHS 08/25/14 [History Last Taken 05/24/18] losartan 100 mg PO DAILY 05/25/18 [History Last Taken 05/25/18] metformin 500 mg tablet 500 mg PO BIDCM tab 11/28/18 [History Last Taken Unknown] levothyroxine 300 mcg tablet 300 mcg PO DAILY tab 08/10/19 [History Last Taken Unknown] compress.stocking,knee,reg,lrg #2 ea 12/25/19 [Rx Last Taken Unknown] ciprofloxacin HCl 500 mg PO BID #6 tablet 08/26/20 [Rx Last Taken Unknown] fluconazole [Diflucan] 150 mg PO Q3D #2 tab 08/26/20 [Rx Last Taken Unknown] Allergy/AdvReac Type Severity Reaction Status Date / Time ondansetron HCl Allergy Rash Verified 08/26/20 12:56 [From Zofran (as hydrochloride)] oxycodone HCl [From Percocet] Allergy Rash Verified 08/26/20 12:56 Penicillins [PCN] Allergy Other Verified 08/26/20 12:56 propoxyphene napsylate Allergy Rash Verified 08/26/20 12:56 [From Darvocet-N 100] shellfish derived Allergy Rash Verified 08/26/20 12:56 Family History Father Colon cancer Grandmother No problems noted. Mother Colon cancer Cancer Heart disease CVA (cerebral vascular accident) Diabetes Thyroid disorder Hypertension Brother Colon cancer Unknown Breast cancer 2 cousins Uncle Colon cancer Surgical History History of colonoscopy (~08/14/19) History of esophagogastroduodenoscopy (EGD) S/P colonoscopy S/P hysterectomy S/P wrist surgery Status post laparoscopic cholecystectomy Stone, kidney Social History Smoking Status: Never smoker second hand exposure: No alcohol intake: never substance use type: does not use caffeine: Yes what type of physical activity do you participate in: none frequency: does not exercise ROS ROS ED Constitutional Constitutional ED: Denies chills or fever(s) Eyes Eyes: Denies blurry vision or change in vision ENT ENT ED: Denies rhinorrhea or sore throat Cardiovascular Cardiovascular: Denies chest pain or palpitations Respiratory/Chest Respiratory/Chest: Denies cough or dyspnea Gastrointestinal Gastrointestinal: Denies nausea or vomiting Genitourinary Genitourinary ED: Reports dysuria; Denies hematuria Musculoskeletal Musculoskeletal: Reports back pain; Denies neck pain Integumentary Denies abscess or rash Neurologic Neurologic: Reports headache(s); Denies weakness Allergic/Immunologic Allergic/Immunologic ED: Denies mouth swelling or urticaria EXAM Physical Exam Const Vital Signs: 08/26/20 12:47 Temperature 98.2 F Temperature Source Temporal Pulse Rate 69 Respiratory Rate 18 Blood Pressure 187/83 H Blood Pressure Mean 117 Pulse Ox 98 Oxygen Delivery Method Room Air Positive well nourished, well developed and obese General Appearance ED: well developed Nutritional Appearance: obese HEENT Reports moist mucous membranes Neck supple and no JVD Resp normal respiratory effort and clear to auscultation bilaterally Cardio regular rate, regular rhythm and no murmurs GI normal to inspection, nondistended, normoactive bowel sounds and non-tender Palpation: soft Back/Spine General Back: other There is some mild left lower lumbar paraspinal tenderness. There is no midline tenderness. There is no left CVA tenderness. Thoracic Spine / Upper Back: paraspinal muscle tenderness Lumbar Spine / Lower Back: lumbar spinal tenderness Extremity normal to inspection General Extremety ED: Negative for edema or tenderness General Extremity: Negative for edema Neuro oriented x3, CN's II-XII intact bilaterally and no sensory deficits noted Sensorium / Orientation: alert Motor Exam: strength 5/5 throughout Psych mental status grossly normal Skin no rashes or lesions noted MDM MDM MDM Narrative Medical decision making narrative: Patient was given IV fluids, Tylenol, and Phenergan. CBC and comprehensive metabolic profile were obtained and were essentially within normal limits. Urinalysis shows leukocyte esterase of 100 with positive nitrites. There were 10-25 white blood cells and 4+ bacteria. Urine culture was ordered. Patient was given a dose of Rocephin here. Patient was given a prescription for Cipro. Patient was instructed to follow-up with her primary care physician in 5 to 7 days. Patient was instructed drink plenty of fluids. Patient understood and was agreeable with the plan. All questions were answered. Lab Data Attestation: I reviewed the patient's lab results. Labs: Laboratory Results - last 24 hr 08/26/20 08/26/20 08/26/20 13:24 13:42 13:42 WBC 9.0 RBC 4.87 Hgb 12.4 Hct 40.3 MCV 82.8 MCH 25.5 L MCHC 30.8 L RDW Std Deviation 43.6 RDW Coeff of Tara 14.6 Plt Count 241 MPV 10.2 Immature Gran % (Auto) 0.300 Neut % (Auto) 65.8 Lymph % (Auto) 22.3 [place] % (Auto) 9.7 Eos % (Auto) 1.6 Baso % (Auto) 0.3 Absolute Neuts (auto) 5.9 Absolute Lymphs (auto) 2.00 Nucleated RBC % 0 Sodium 142 Potassium 4.3 Chloride 107 Carbon Dioxide 27.0 Anion Gap 8 BUN 20 H Creatinine 1.04 H Estim Creat Clear Calc 41.52 Est GFR (MDRD) Af Amer 68 Est GFR (MDRD) Non-Af 56 L BUN/Creatinine Ratio 19.2 Glucose 129 H Calcium 9.3 Total Bilirubin 0.30 AST 22 ALT 30 Alkaline Phosphatase 85 Total Protein 6.8 Albumin 3.1 L Globulin 3.7 Albumin/Globulin Ratio 0.8 L Urine Color Yellow Urine Clarity Sl. Cloudy Urine pH 7.0 Ur Specific [place] 1.010 Urine Protein Negative Urine Glucose (UA) 50 H Urine Ketones Negative Urine Occult Blood 10 H Urine Nitrite Positive H Urine Bilirubin Negative Urine Urobilinogen Normal Ur Leukocyte Esterase 100 H Urine RBC 0-5 SEEN Urine WBC 10-25 SEEN Ur Squamous Epith Cells 0-5 SEEN Urine Bacteria 4+ Urine Mucus 0 SEEN Discharge Plan Triage Chief Complaint: Complaint ED Provider: Mele Small Dx/Rx/DC Orders Clinical Impression: Urinary tract infection Instructions: ED Bladder Infection, Female (Adult) Prescriptions: New ciprofloxacin HCl [ciprofloxacin HCl] 500 MG tablet 500 mg PO BID Qty: 6 RF: 0 fluconazole [Diflucan] 150 mg tablet 150 mg PO Q3D Qty: 2 RF: 0 No Action levothyroxine 300 mcg tablet 300 mcg PO DAILY RF: 0 (DME) compress.stocking,knee,reg,lrg Misc See Rx Instructions .ROUTE .MEDSUPPLY Qty: 2 RF: 1 lovastatin 20 MG tablet 20 mg PO QHS RF: 0 metformin 500 mg tablet 500 mg PO BIDCM RF: 0 losartan 100 MG tablet 100 mg PO DAILY RF: 0 Primary Care Provider: Kyler Monge III Referrals: Kyler Monge III, MD [Primary Care Provider] - 3-5 Days Activity Restrictions/Additional Instructions: Do not take the Diflucan until after you have completed the Cipro. Disposition Disposition: Home, self care
[2020-08-26 14:42] LABS: Bacteria 4+ /hpf (None Seen); Red Blood Cells-Urine 0-5 SEEN /hpf (0-5); Squamous Epithelial Cells - UA 0-5 SEEN /hpf (5-10); White Blood Cells 10-25 SEEN /hpf (0-5)
[2020-08-26] MEDS: Morphine 4 MG/ML Syringe IV (15:35)
[2020-08-26] MEDS: Ceftriaxone 1 GM/50 ML BAG IV (15:41)
[2020-08-26 16:11] VITALS: BP 167/71; PULSE 68; RESP 18; O2SAT 97; O2SAT 99
== END 2020-08-26 16:25 | disposition home or self-care (01) ==
PROVIDERS: Emergency Provider Emergency Medicine; PCP Family Medicine
DX: N39.0 Urinary tract infection, site not specified (principal); J45.909 Unspecified asthma, uncomplicated; E11.9 Type 2 diabetes mellitus without complications; I10 Essential (primary) hypertension; E78.5 Hyperlipidemia, unspecified; E66.9 Obesity, unspecified; Z79.84 Long term (current) use of oral hypoglycemic drugs; Z79.899 Other long term (current) drug therapy
CPT/HCPCS: 80053; 81001; 85025; 87077; 87086; 87088; 87186; 96365; 96372; 96375; 99284; J7030; J7050

== ENCOUNTER 2020-09-09 20:01 | Emergency (ER) | payer MEDICARE, BC, SELFPAY ==
[2020-08-26 12:47] VITALS: BMI 48.4
[2020-09-09 20:02] VITALS: BP 152/67; PULSE 70; RESP 18; TEMP 35.9; O2SAT 97; BMI 46.9
--- NOTE | 2020-09-09 22:33 | CT_ITS ---
STUDY: CT ABDOMEN AND PELVIS WITHOUT CONTRAST REASON FOR EXAM: Female, 69 years old. stone RADIATION DOSAGE (If Supplied By Facility): CTDIvol = ( 24.11 ) mGy, DLP = ( 1301.09 ) mGycm TECHNIQUE: Transaxial images were obtained from the dome of the diaphragm to the symphysis pubis without oral contrast, and without intravenous contrast. Sagittal and coronal images were reconstructed. Individualized dose optimization techniques were used for this CT. COMPARISON: 11/08/2019, 10/24/2015 FINDINGS: Evaluation limited by lack of IV and oral contrast. There is atelectasis/scarring within the lungs. There is a 4 mm and 3 mm RIGHT middle lobe pulmonary nodule. Similar to prior study 10/24/2015 coronary artery calcifications. There is hepatomegaly with diffuse hepatic enlargement. There are surgical clips in the gallbladder fossa consistent with a prior cholecystectomy. Normal spleen. Normal pancreas. Normal bilateral adrenal glands. 2 mm nonobstructing RIGHT nephrolithiasis. Nonspecific bilateral perinephric stranding. Otherwise grossly unremarkable unenhanced bilateral kidneys. Evaluation of bowel is limited by lack of IV and oral contrast material. No free air or free fluid identified. No dilated loops of bowel by CT criteria. There are multiple colonic diverticula consistent with diverticulosis. The appendix is visualized and appears normal. There is diffuse atherosclerotic calcification of the abdominal aorta, without a demonstrated aneurysm. Cannot evaluate for dissection due to lack of IV contrast. Again noted subcentimeter short axis mesenteric and retroperitoneal lymph nodes. Borderline enlarged bilateral pelvic sidewall lymph nodes. Normal urinary bladder. There is absence of the uterus consistent with a prior hysterectomy. Similar appearance to the pelvic sidewall dominant lymph nodes. Again noted calcifications within the region of the vaginal cuff. Small fat-containing umbilical hernia. Body wall edema similar to prior study. There are diffuse degenerative changes of the visualized lumbar spine. CT/Abdomen/Pelvis without Cont IMPRESSION: Nonobstructing RIGHT nephrolithiasis. Diverticulosis without definitive CT evidence for acute diverticulitis. No CT evidence for acute appendicitis. Status post cholecystectomy and hysterectomy. Again noted mesenteric and retroperitoneal as well as pelvic lymph nodes appear similar to prior study, 11/08/2019 as discussed above. These are slightly more prominent compared to 10/24/2015 Nonspecific. RIGHT middle lobe pulmonary nodules similar to prior study 10/24/2015. Other findings as above. Electronically Signed: Juanito Gonzales MD at 23:26 EDT Tel , Service support ,
[2020-09-09] MEDS: 0.9% Normal Saline 1,000 ML 1000 ML IV (22:46)
[2020-09-09] MEDS: proCHLORPERazine 10 MG/2 ML Vial 5 MG IV (22:47)
[2020-09-09] MEDS: fentaNYL 100 MCG/2 ML Ampul 50 MCG IV (22:47)
--- NOTE | 2020-09-09 22:47 | ED.VIS.FEGU ---
HPI HPI - Female History of Present Illness Chief Complaint: Complaint Informant: patient Pain Timing: Continuous Quality: Positive for Cramping Location: Suprapubic and Back Current Severity: Moderate Maximum Severity: Moderate Associated Symptoms Associated Symptoms: Positive for Dysuria, Frequency, Urgency and Hematuria Narrative Narrative: The patient is a 69-year-old female with medical history significant for diabetes, hypertension, hyperlipidemia, and kidney stone who presents to the emergency department back pain. Patient states she was seen here about 10 days ago. At that point, she was diagnosed with urinary tract infection. She was given a dose of Rocephin and kept on Cipro. She states that she was feeling much better, but over the past 3 days, her symptoms have returned. She describes chills without a fever. She has had nausea without vomiting. She does admit to increased urinary frequency and urgency. [facility] Medical History Asthma Cancer Diabetes Diarrhea Hemorrhoids HTN (hypertension) Hyperthyroidism Kidney disease Shoulder pain Thyroid disease Home Medications lovastatin 20 mg PO QHS 08/25/14 [History Last Taken 05/24/18] losartan 100 mg PO DAILY 05/25/18 [History Last Taken 05/25/18] metformin 500 mg tablet 500 mg PO BIDCM tab 11/28/18 [History Last Taken Unknown] levothyroxine 300 mcg tablet 300 mcg PO DAILY tab 08/10/19 [History Last Taken Unknown] compress.stocking,knee,reg,lrg #2 ea 12/25/19 [Rx Last Taken Unknown] ciprofloxacin HCl 500 mg PO BID #6 tablet 08/26/20 [Rx Last Taken Unknown] fluconazole [Diflucan] 150 mg PO Q3D #2 tab 08/26/20 [Rx Last Taken Unknown] hydrocodone-acetaminophen 1 tab PO Q6H PRN PRN 3 Days #10 tablet 09/10/20 [Rx Last Taken Unknown] promethazine 25 mg PO Q6H PRN PRN #10 tablet 09/10/20 [Rx Last Taken Unknown] Allergy/AdvReac Type Severity Reaction Status Date / Time ondansetron HCl Allergy Rash Verified 08/26/20 12:56 [From Zofran (as hydrochloride)] oxycodone HCl [From Percocet] Allergy Rash Verified 08/26/20 12:56 Penicillins [PCN] Allergy Other Verified 08/26/20 12:56 propoxyphene napsylate Allergy Rash Verified 08/26/20 12:56 [From Darvocet-N 100] shellfish derived Allergy Rash Verified 08/26/20 12:56 Family History Father Colon cancer Grandmother No problems noted. Mother Colon cancer Cancer Heart disease CVA (cerebral vascular accident) Diabetes Thyroid disorder Hypertension Brother Colon cancer Unknown Breast cancer 2 cousins Uncle Colon cancer Surgical History History of colonoscopy (~08/14/19) History of esophagogastroduodenoscopy (EGD) S/P colonoscopy S/P hysterectomy S/P wrist surgery Status post laparoscopic cholecystectomy Stone, kidney Social History Smoking Status: Never smoker second hand exposure: No alcohol intake: never substance use type: does not use caffeine: Yes what type of physical activity do you participate in: none frequency: does not exercise ROS ROS ED Constitutional Constitutional ED: Denies chills or fever(s) Eyes Eyes: Denies blurry vision or change in vision ENT ENT ED: Denies ear pain or sore throat Cardiovascular Cardiovascular: Denies chest pain or palpitations Respiratory/Chest Respiratory/Chest: Denies cough, dyspnea or dyspnea on exertion Gastrointestinal Gastrointestinal: Reports nausea; Denies abdominal pain or vomiting Genitourinary Genitourinary ED: Reports dysuria, hematuria and urinary frequency Musculoskeletal Musculoskeletal: Denies arthralgias or myalgias Integumentary Denies rash Neurologic Neurologic: Denies headache(s) or paresthesias Psychiatric Psychiatric: Denies anxiety or depression Endocrine Endocrinology: Denies polydipsia or polyuria Allergic/Immunologic Allergic/Immunologic ED: Denies urticaria EXAM Physical Exam Const Vital Signs: 09/09/20 20:02 09/09/20 23:20 Temperature 96.7 F L 98.2 F Temperature Source Temporal Temporal Pulse Rate 70 68 Respiratory Rate 18 15 Blood Pressure 152/67 H 142/84 H Blood Pressure Mean 95 103 Pulse Ox 97 99 Oxygen Delivery Method Room Air Room Air Positive well nourished and well developed General Appearance ED: well developed HEENT Reports normocephalic, head/scalp atraumatic and moist mucous membranes Eyes PERRL and EOMs intact bilaterally Neck no lymphadenopathy and supple General: Negative for tenderness Chest Wall inspection of chest normal Resp normal respiratory effort and clear to auscultation bilaterally Cardio regular rate, regular rhythm and no murmurs GI normal to inspection, nondistended, normoactive bowel sounds Palpation: Negative for tender, guarding or rebound tenderness present Back/Spine no CVA tenderness Cervical Spine: Negative for cervical spine tenderness Thoracic Spine / Upper Back: Negative for thoracic spinal tenderness Extremity normal to inspection General Extremety ED: Negative for tenderness Neuro oriented x3 and CN's II-XII intact bilaterally Neuro Narrative: No focal deficits appreciated. Sensorium / Orientation: alert Psych mental status grossly normal Skin no rashes or lesions noted, no wounds and skin turgor normal MDM MDM MDM Narrative Medical decision making narrative: Patient presents with flank pain. She does have a history of kidney stone and infection. I did obtain screening labs. She has a mild leukocytosis. Renal function is at her baseline. Lactic acid was negative. The patient's urine shows no evidence of infection. She underwent CT imaging. There is no evidence of obstructing stone. The patient's pain is now controlled. I am not sure if she had a small stone that was just not visualized or had recently passed stone. At this point, given that she is safe for outpatient therapy. She is comfortable with this plan of care. She will be discharged home. Impression 1. Left flank pain Lab Data Attestation: I reviewed the patient's lab results. Labs: Laboratory Results - last 24 hr 09/09/20 09/09/20 09/09/20 22:40 22:40 22:40 WBC 12.1 H RBC 4.74 Hgb 12.3 Hct 39.6 MCV 83.5 MCH 25.9 L MCHC 31.1 L RDW Std Deviation 45.2 H RDW Coeff of Tara 14.9 H Plt Count 289 MPV 9.7 Immature Gran % (Auto) 0.400 Neut % (Auto) 68.2 Lymph % (Auto) 22.3 [place] % (Auto) 7.6 Eos % (Auto) 1.1 Baso % (Auto) 0.4 Absolute Neuts (auto) 8.3 H Absolute Lymphs (auto) 2.70 Nucleated RBC % 0 Sodium 140 Potassium 4.0 Chloride 107 Carbon Dioxide 27.0 Anion Gap 6 BUN 16 Creatinine 1.15 H Estim Creat Clear Calc 39.27 Est GFR (MDRD) Af Amer 60 Est GFR (MDRD) Non-Af 50 L BUN/Creatinine Ratio 13.9 Glucose 96 Lactic Acid 0.7 Calcium 9.1 Total Bilirubin 0.40 AST 18 ALT 25 Alkaline Phosphatase 90 Total Protein 7.3 Albumin 3.3 Globulin 4.0 Albumin/Globulin Ratio 0.8 L Urine Color Urine Clarity Urine pH Ur Specific [place] Urine Protein Urine Glucose (UA) Urine Ketones Urine Occult Blood Urine Nitrite Urine Bilirubin Urine Urobilinogen Ur Leukocyte Esterase Urine RBC Urine WBC Ur Squamous Epith Cells Urine Bacteria Urine Mucus 09/10/20 01:20 WBC RBC Hgb Hct MCV MCH MCHC RDW Std Deviation RDW Coeff of Tara Plt Count MPV Immature Gran % (Auto) Neut % (Auto) Lymph % (Auto) [place] % (Auto) Eos % (Auto) Baso % (Auto) Absolute Neuts (auto) Absolute Lymphs (auto) Nucleated RBC % Sodium Potassium Chloride Carbon Dioxide Anion Gap BUN Creatinine Estim Creat Clear Calc Est GFR (MDRD) Af Amer Est GFR (MDRD) Non-Af BUN/Creatinine Ratio Glucose Lactic Acid Calcium Total Bilirubin AST ALT Alkaline Phosphatase Total Protein Albumin Globulin Albumin/Globulin Ratio Urine Color Yellow Urine Clarity Clear Urine pH 6.5 Ur Specific [place] 1.015 Urine Protein Negative Urine Glucose (UA) Normal Urine Ketones Negative Urine Occult Blood Negative Urine Nitrite Negative Urine Bilirubin Negative Urine Urobilinogen Normal Ur Leukocyte Esterase Negative Urine RBC 0 SEEN Urine WBC 0 SEEN Ur Squamous Epith Cells 0-5 SEEN Urine Bacteria 0 SEEN Urine Mucus 0 SEEN Radiography Diagnostic Testing: Radiology Impression Abdomen/Pelvis CT 09/09/20 22:33 IMPRESSION: Nonobstructing RIGHT nephrolithiasis. Diverticulosis without definitive CT evidence for acute diverticulitis. No CT evidence for acute appendicitis. Status post cholecystectomy and hysterectomy. Again noted mesenteric and retroperitoneal as well as pelvic lymph nodes appear similar to prior study, 11/08/2019 as discussed above. These are slightly more prominent compared to 10/24/2015 Nonspecific. RIGHT middle lobe pulmonary nodules similar to prior study 10/24/2015. Other findings as above. Electronically Signed: Juanito Gonzales MD at 23:26 EDT Tel , Service support , Discharge Plan Triage Chief Complaint: Complaint Other Complaint: Back ED Provider: Jose Machuca Dx/Rx/DC Orders Instructions: ED Flank Pain, Uncertain Cause Prescriptions: New hydrocodone-acetaminophen [hydrocodone-acetaminophen] 1 TABLET tablet 1 tab PO Q6H PRN PRN (Reason: Pain) 3 Days Qty: 10 RF: 0 promethazine [promethazine] 25 MG tablet 25 mg PO Q6H PRN PRN (Reason: Nausea) Qty: 10 RF: 0 No Action levothyroxine 300 mcg tablet 300 mcg PO DAILY RF: 0 (DME) compress.stocking,knee,reg,lrg Misc See Rx Instructions .ROUTE .MEDSUPPLY Qty: 2 RF: 1 lovastatin 20 MG tablet 20 mg PO QHS RF: 0 metformin 500 mg tablet 500 mg PO BIDCM RF: 0 losartan 100 MG tablet 100 mg PO DAILY RF: 0 ciprofloxacin HCl [ciprofloxacin HCl] 500 MG tablet 500 mg PO BID Qty: 6 RF: 0 fluconazole [Diflucan] 150 mg tablet 150 mg PO Q3D Qty: 2 RF: 0 Primary Care Provider: Care Physician,No Primary Referrals: Care Physician,No Primary [Primary Care Provider] -
[2020-09-09 22:53] LABS: Absolute Neutrophil Count 8.3 X10^3/uL (2.0-7.7); Basophil# 0.05 X10^3/uL; Basophil% 0.4 % (0-1); Eosinophil# 0.13 X10^3/uL; Eosinophils% 1.1 % (0-5); Hematocrit 39.6 % (37-47); Hemoglobin 12.3 g/dL (12.0-15.0); Lymphocyte % 22.3 % (19-41); Mean Corp Hgb Conc 31.1 g/dL (32-36); Mean Corpuscular Hgb 25.9 pg (27.0-32.0); Mean Corpuscular Volume 83.5 fL (81-99); Mean Platelet Vol. 9.7 fl (6.2-12.0); Monocyte# 0.92 X10^3/uL; Monocyte% 7.6 % (0-10); NRBC Flagged by Analyzer 0 % (0-5); Neutrophil # 8.26 X10^3/uL (2.7-7.7); Neutrophil % 68.2 % (47-70); Platelet Count 289 K/mm3 (150-450); RBC Distribution Width CV 14.9 % (11.6-14.6); RBC Distribution Width SD 45.2 fl (35.1-43.9); Red Blood Count 4.74 M/mm3 (4.2-5.4); White Blood Count 12.1 K/mm3 (4.4-11.0)
[2020-09-09 23:09] LABS: ALB/GLOB Ratio 0.8 RATIO (0.9-2.4); AST(SGOT) 18 U/L (15-37); Alanine Aminotransfer ALT/SGPT 25 U/L (13-56); Albumin, Serum 3.3 g/dL (3.2-5.0); Alkaline Phosphatase 90 U/L (45-117); Anion Gap 6 (5-15); BUN 16 mg/dL (7-18); BUN/Creat Ratio 13.9 RATIO (10-20); Calcium,Total 9.1 mg/dL (8.5-10.1); Chloride 107 mmol/L (98-107); Creatinine, Serum 1.15 mg/dL (0.55-1.02); EST Glomerular Filtration Rate 50 mL/min (>60); Est Glom Filt Rate - Afr Amer 60 mL/min (>60); Estimated Creatinine Clearance 39.27 ml/min; Glucose 96 mg/dL (74-106); Protein, Total 7.3 g/dL (6.4-8.2); Sodium Level 140 mmol/L (136-145)
[2020-09-09] MEDS: Ketorolac 15 MG/ML Vial IV (23:10)
[2020-09-09 23:20] VITALS: BP 142/84; PULSE 67; PULSE 68; RESP 15; RESP 16; TEMP 36.8; O2SAT 98; O2SAT 99
[2020-09-09 23:29] LABS: Lactic Acid 0.7 mmol/L (0.4-1.9)
[2020-09-10 01:28] LABS: Bacteria 0 SEEN /hpf (None Seen); Mucous, Urine 0 SEEN /hpf (<or=2+); Red Blood Cells-Urine 0 SEEN /hpf (0-5); White Blood Cells 0 SEEN /hpf (0-5)
[2020-09-10 01:29] LABS: Color, Urine Yellow (Yellow); Glucose, Dipstick Normal (Normal); Ketone-Dipstick Negative (Negative); Leukocyte Esterase-Dipstick Negative /ul (Negative); Nitrite-Dipstick Negative (Negative); Occult Blood-Urine Negative /ul (Negative); Protein-Dipstick Negative (Negative); Specific Gravity, Urine 1.015 (1.002-1.030); Urine Bilirubin Dipstick Negative (Negative); Urine Clarity Clear (Clear); Urine Urobilinogen Normal (Normal); Urine pH 6.5 (5.0 - 8.0)
[2020-09-10 01:34] LABS: Squamous Epithelial Cells - UA 0-5 SEEN /hpf (5-10)
[2020-09-10 02:00] VITALS: BP 128/74; PULSE 65; RESP 20; O2SAT 97
[2020-09-10] MEDS: fentaNYL 100 MCG/2 ML Ampul 50 MCG IV (02:07)
== END 2020-09-10 02:14 | disposition home or self-care (01) ==
PROVIDERS: Emergency Provider Emergency Medicine
DX: R10.9 Unspecified abdominal pain (principal); I10 Essential (primary) hypertension; E11.9 Type 2 diabetes mellitus without complications; E78.5 Hyperlipidemia, unspecified; E05.90 Thyrotoxicosis, unspecified without thyrotoxic crisis or storm; J45.909 Unspecified asthma, uncomplicated; Z87.19 Personal history of other diseases of the digestive system; Z87.440 Personal history of urinary (tract) infections; Z87.442 Personal history of urinary calculi; Z79.84 Long term (current) use of oral hypoglycemic drugs; Z79.899 Other long term (current) drug therapy
CPT/HCPCS: 36415; 74176; 80053; 81001; 83605; 85025; 87040; 96361; 96374; 96375; 96376; 99284; J7030; A4216

== ENCOUNTER → 2020-12-30 18:28 | Outpatient (CLI) | payer MEDICARE, BC, SELFPAY ==
[2020-12-30 18:29] LABS: Bacteria 0 SEEN /hpf (None Seen); Mucous, Urine 0 SEEN /hpf (<or=2+); Red Blood Cells-Urine 0 SEEN /hpf (0-5)
[2020-12-30 18:35] LABS: Color, Urine Yellow (Yellow); Glucose, Dipstick Normal (Normal); Ketone-Dipstick Negative (Negative); Leukocyte Esterase-Dipstick 100 /ul (Negative); Nitrite-Dipstick Negative (Negative); Occult Blood-Urine Negative /ul (Negative); Protein-Dipstick Negative (Negative); Urine Bilirubin Dipstick Negative (Negative); Urine Clarity Sl. Cloudy (Clear); Urine Urobilinogen Normal (Normal)
[2020-12-30 18:50] LABS: Squamous Epithelial Cells - UA 0-5 SEEN /hpf (5-10); White Blood Cells 0-5 SEEN /hpf (0-5)
== END ==
PROVIDERS: PCP Internal Medicine; Referring Provider Physician Assistant; Visit Provider Physician Assistant
DX: N39.0 Urinary tract infection, site not specified (principal)
CPT/HCPCS: 81001; 87086; 87088; 87186

== ENCOUNTER 2020-12-31 17:16 | Emergency (ER) | payer MEDICARE, BC, SELFPAY ==
[2020-12-31 17:18] VITALS: BP 163/77; PULSE 69; RESP 18; TEMP 37; O2SAT 97; BMI 47.8
[2020-12-31 18:00] LABS: Mucous, Urine 0 SEEN /hpf (<or=2+); Red Blood Cells-Urine 0 SEEN /hpf (0-5)
[2020-12-31 18:23] LABS: Color, Urine Yellow (Yellow); Glucose, Dipstick 1000 mg/dl (Normal); Ketone-Dipstick Negative (Negative); Leukocyte Esterase-Dipstick 500 /ul (Negative); Nitrite-Dipstick Positive (Negative); Occult Blood-Urine Negative /ul (Negative); Protein-Dipstick 15 mg/dl (Negative); Urine Bilirubin Dipstick Negative (Negative); Urine Clarity Clear (Clear); Urine Urobilinogen Normal (Normal)
[2020-12-31 18:36] LABS: Bacteria 2+ /hpf (None Seen); Squamous Epithelial Cells - UA 0-5 SEEN /hpf (5-10); White Blood Cells 10-25 SEEN /hpf (0-5)
[2020-12-31 19:15] VITALS: BP 167/66; PULSE 67; RESP 12; O2SAT 98
[2020-12-31 19:16] LABS: Bedside Glucose 127 mg/dL (70-110)
--- NOTE | 2020-12-31 19:35 | ED.VIS.FEGU ---
HPI HPI - Female History of Present Illness Chief Complaint: Complaint Informant: patient and family Narrative Narrative: 70-year-old female arrives to the emergency department a concern for kidney infection. Patient states she went to urgent care yesterday had a negative dip UA. She was experiencing dysuria, urinary frequency, and nausea. She notes pain right greater than left and her kidney region. She states that the urgent care is doing a urine culture but it was not back yet today so they advised her with her symptomology to come to emergency. She denies a fever. Family states that she gets frequent urinary tract infections. [facility] Medical History Asthma Cancer Diabetes Diarrhea Hemorrhoids HTN (hypertension) Hyperlipidemia Hyperthyroidism Kidney disease Low back pain Non-smoker ANISHA (obstructive sleep apnea) Shoulder pain Thyroid disease Home Medications lovastatin 20 mg PO QHS 08/25/14 [History Last Taken 05/24/18] losartan 100 mg PO DAILY 05/25/18 [History Last Taken 05/25/18] levothyroxine 300 mcg tablet 300 mcg PO DAILY tab 08/10/19 [History Last Taken Unknown] dulaglutide 1.5 mg/0.5 mL subcutaneous pen injector 1.5 mg SUBCUT QWEEK 10/24/20 [History Last Taken Unknown] fluticasone furoate 200 mcg/actuation blister powder for inhalation 1 inh INHALATION DAILY 10/24/20 [History Last Taken Unknown] insulin aspart U-100 100 unit/mL (3 mL) subcutaneous pen 25 unit SUBCUT TID ml 10/24/20 [History Last Taken Unknown] insulin glargine 100 unit/mL (3 mL) subcutaneous pen 44 unit SUBCUT BID ml 10/24/20 [History Last Taken Unknown] metformin 500 mg tablet,extended release 24 hr 500 mg PO BID #60 tab 10/28/20 [Rx Last Taken Unknown] cephalexin 500 mg PO Q6 #40 capsule 12/31/20 [Rx Last Taken Unknown] fluconazole [Diflucan] 150 mg PO Q3D #2 tab 12/31/20 [Rx Last Taken Unknown] hydrocodone-acetaminophen 1 tab PO Q6H PRN PRN 3 Days #12 tablet 12/31/20 [Rx Last Taken Unknown] promethazine 25 mg PO Q6H PRN PRN #12 tablet 12/31/20 [Rx Last Taken Unknown] Allergy/AdvReac Type Severity Reaction Status Date / Time ondansetron HCl Allergy Rash Verified 12/31/20 17:18 [From Zofran (as hydrochloride)] oxycodone HCl [From Percocet] Allergy Rash Verified 12/31/20 17:18 Penicillins [PCN] Allergy Other Verified 12/31/20 17:18 propoxyphene napsylate Allergy Rash Verified 12/31/20 17:18 [From Darvocet-N 100] shellfish derived Allergy Rash Verified 12/31/20 17:18 Family History Father Colon cancer Myocardial infarction Diabetes Hypertension Hyperlipemia Grandmother No problems noted. Mother Colon cancer Cancer Heart disease CVA (cerebral vascular accident) Diabetes Thyroid disorder Hypertension Myocardial infarction Hyperlipemia Brother Colon cancer Unknown Breast cancer 2 cousins Uncle Colon cancer Surgical History History of cholecystectomy History of colonoscopy (~08/14/19) History of esophagogastroduodenoscopy (EGD) S/P colonoscopy S/P hysterectomy S/P wrist surgery Status post laparoscopic cholecystectomy Stone, kidney Social History Smoking Status: Never smoker second hand exposure: No alcohol intake: current alcohol intake frequency: holidays/special occasions only substance use type: does not use caffeine: Yes what type of physical activity do you participate in: none frequency: does not exercise ROS ROS ED Constitutional Constitutional ED: Denies chills, fever(s) or weight loss Eyes Eyes: Denies change in vision or diplopia ENT ENT ED: Denies ear pain, rhinorrhea or sore throat Cardiovascular Cardiovascular: Denies chest pain, orthopnea, palpitations or racing heartbeat Respiratory/Chest Respiratory/Chest: Denies cough, dyspnea or orthopnea Gastrointestinal Gastrointestinal: Reports nausea; Denies abdominal pain, diarrhea or vomiting Genitourinary Genitourinary ED: Reports dysuria and urinary frequency; Denies hematuria Musculoskeletal Musculoskeletal: Denies arthralgias or myalgias Integumentary Denies abscess or rash Neurologic Neurologic: Denies headache(s) or weakness Psychiatric Psychiatric: Denies anxiety, depression, suicidal ideation or suicidal thoughts Endocrine Endocrinology: Denies polydipsia, polyphagia or polyuria Allergic/Immunologic Allergic/Immunologic ED: Denies mouth swelling, tongue swelling or urticaria EXAM Physical Exam Const Vital Signs: 12/31/20 17:18 12/31/20 19:15 Temperature 98.6 F Temperature Source Temporal Pulse Rate 69 67 Respiratory Rate 18 12 Blood Pressure 163/77 H 167/66 H Blood Pressure Mean 105 99 Pulse Ox 97 98 Oxygen Delivery Method Room Air Room Air Positive well nourished, well developed and obese General Appearance ED: well developed Nutritional Appearance: obese HEENT Reports normocephalic, head/scalp atraumatic, TM's clear and moist mucous membranes Negative for trauma Tympanic Membrane ED: Yes TM's clear Eyes PERRL and EOMs intact bilaterally Neck no lymphadenopathy, supple and no JVD Resp normal respiratory effort and clear to auscultation bilaterally Cardio regular rate, regular rhythm and no murmurs GI normal to inspection, nondistended, normoactive bowel sounds and non-tender Palpation: soft Narrative: Mild CVA tenderness on the left Back/Spine no CVA tenderness and normal ROM Extremity normal to inspection General Extremety ED: Negative for edema General Extremity: Negative for edema Neuro oriented x3 and CN's II-XII intact bilaterally Sensorium / Orientation: alert Motor Exam: strength 5/5 throughout Psych mental status grossly normal Mood & Affect: Negative for depressed or tearful Skin no rashes or lesions noted and no wounds MDM MDM MDM Narrative Medical decision making narrative: Patient's urinalysis shows 10-25 white cells 2+ bacteria positive nitrates and positive leukocyte esterase. I reviewed the patient's prior labs and see that her urine culture from yesterday is presumptive positive for greater than 100,000 colony-forming units of E. coli. IV was established and the patient received Toradol. Phenergan p.o. was administered. White count 10.3. Creatinine is 0.99. Patient received a dose of Rocephin. She will be discharged home on Keflex after reviewing her prior E. coli sensitivities. I will write for Phenergan and [place] for pain. She is also requesting some Diflucan. Lab Data Labs: Laboratory Results - last 24 hr 12/31/20 12/31/20 12/31/20 17:25 19:06 19:44 WBC 10.3 RBC 5.14 Hgb 13.0 Hct 42.4 MCV 82.5 MCH 25.3 L MCHC 30.7 L RDW Std Deviation 41.5 RDW Coeff of Tara 14.0 Plt Count 263 MPV 10.2 Immature Gran % (Auto) 0.500 Neut % (Auto) 65.9 Lymph % (Auto) 22.5 [place] % (Auto) 8.8 Eos % (Auto) 1.9 Baso % (Auto) 0.4 Absolute Neuts (auto) 6.8 Absolute Lymphs (auto) 2.31 Nucleated RBC % 0 Sodium Potassium Chloride Carbon Dioxide Anion Gap BUN Creatinine Estim Creat Clear Calc Est GFR (MDRD) Af Amer Est GFR (MDRD) Non-Af BUN/Creatinine Ratio Glucose Calcium Urine Color Yellow Urine Clarity Clear Urine pH 7.0 Ur Specific [place] 1.010 Urine Protein 15 H Urine Glucose (UA) 1000 H Urine Ketones Negative Urine Occult Blood Negative Urine Nitrite Positive H Urine Bilirubin Negative Urine Urobilinogen Normal Ur Leukocyte Esterase 500 H Urine RBC 0 SEEN Urine WBC 10-25 SEEN Ur Squamous Epith Cells 0-5 SEEN Urine Bacteria 2+ Urine Mucus 0 SEEN POC Glucose 127 H 12/31/20 19:44 WBC RBC Hgb Hct MCV MCH MCHC RDW Std Deviation RDW Coeff of Tara Plt Count MPV Immature Gran % (Auto) Neut % (Auto) Lymph % (Auto) [place] % (Auto) Eos % (Auto) Baso % (Auto) Absolute Neuts (auto) Absolute Lymphs (auto) Nucleated RBC % Sodium 139 Potassium 4.1 Chloride 104 Carbon Dioxide 29.0 Anion Gap 6 BUN 11 Creatinine 0.99 Estim Creat Clear Calc 44.99 Est GFR (MDRD) Af Amer 72 Est GFR (MDRD) Non-Af 59 L BUN/Creatinine Ratio 11.1 Glucose 132 H Calcium 9.3 Urine Color Urine Clarity Urine pH Ur Specific [place] Urine Protein Urine Glucose (UA) Urine Ketones Urine Occult Blood Urine Nitrite Urine Bilirubin Urine Urobilinogen Ur Leukocyte Esterase Urine RBC Urine WBC Ur Squamous Epith Cells Urine Bacteria Urine Mucus POC Glucose Discharge Plan Triage Chief Complaint: Complaint ED Provider: Jad Marinelli Dx/Rx/DC Orders Clinical Impression: Acute pyelonephritis Instructions: ED Pyelonephritis, Female (Adult) Prescriptions: New fluconazole [Diflucan] 150 mg tablet 150 mg PO Q3D Qty: 2 RF: 0 hydrocodone-acetaminophen [hydrocodone-acetaminophen] 1 TABLET tablet 1 tab PO Q6H PRN PRN (Reason: Pain) 3 Days Qty: 12 RF: 0 cephalexin [cephalexin] 500 MG capsule 500 mg PO Q6 Qty: 40 RF: 0 promethazine [promethazine] 25 MG tablet 25 mg PO Q6H PRN PRN (Reason: Nausea) Qty: 12 RF: 0 No Action levothyroxine 300 mcg tablet 300 mcg PO DAILY RF: 0 metformin 500 mg tablet extended release 24 hr 500 mg PO BID Qty: 60 RF: 5 Lantus Solostar U-100 Insulin 100 unit/mL (3 mL) insulin pen 44 unit subcut BID RF: 0 insulin aspart U-100 [Novolog Flexpen U-100 Insulin] 100 unit/mL (3 mL) insulin pen 25 unit subcut TID RF: 0 Trulicity 1.5 mg/0.5 mL pen injector 1.5 mg subcut QWEEK RF: 0 Arnuity Ellipta 200 mcg/actuation blister with device 1 inh inhalation DAILY RF: 0 lovastatin 20 MG tablet 20 mg PO QHS RF: 0 losartan 100 MG tablet 100 mg PO DAILY RF: 0 Primary Care Provider: Allison Gomez Referrals: Allison Gomez MD [Primary Care Provider] - As Needed Disposition Disposition: Home, Self Care
[2020-12-31] MEDS: proMETHazine 25 MG Tablet PO (19:50)
[2020-12-31] MEDS: Ketorolac 30 MG/ML Syringe IV (19:56)
[2020-12-31 20:04] LABS: Absolute Lymphocyte Count 2.31 X10^3/uL (0.83-4.51); Absolute Neutrophil Count 6.8 X10^3/uL (2.0-7.7); Basophil# 0.04 X10^3/uL; Basophil% 0.4 % (0-1); Eosinophils% 1.9 % (0-5); Hematocrit 42.4 % (37-47); Lymphocyte # 2.31 X10^3/ul (0.83-4.51); Lymphocyte % 22.5 % (19-41); Mean Corp Hgb Conc 30.7 g/dL (32-36); Mean Corpuscular Hgb 25.3 pg (27.0-32.0); Mean Corpuscular Volume 82.5 fL (81-99); Mean Platelet Vol. 10.2 fl (6.2-12.0); Monocyte% 8.8 % (0-10); NRBC Flagged by Analyzer 0 % (0-5); Neutrophil # 6.76 X10^3/uL (2.7-7.7); Neutrophil % 65.9 % (47-70); Platelet Count 263 K/mm3 (150-450); RBC Distribution Width SD 41.5 fl (35.1-43.9); Red Blood Count 5.14 M/mm3 (4.2-5.4); White Blood Count 10.3 K/mm3 (4.4-11.0)
[2020-12-31 20:29] LABS: Anion Gap 6 (5-15); BUN 11 mg/dL (7-18); BUN/Creat Ratio 11.1 RATIO (10-20); Calcium,Total 9.3 mg/dL (8.5-10.1); Chloride 104 mmol/L (98-107); Creatinine, Serum 0.99 mg/dL (0.55-1.02); EST Glomerular Filtration Rate 59 mL/min (>60); Est Glom Filt Rate - Afr Amer 72 mL/min (>60); Estimated Creatinine Clearance 44.99 ml/min; Glucose 132 mg/dL (74-106); Potassium 4.1 mmol/L (3.5-5.1); Sodium Level 139 mmol/L (136-145)
[2020-12-31] MEDS: Ceftriaxone 1 GM/50 ML BAG IV (20:41)
[2020-12-31 21:28] VITALS: BP 168/70; PULSE 74; RESP 16; O2SAT 95
== END 2020-12-31 21:28 | disposition home or self-care (01) ==
PROVIDERS: Emergency Provider Emergency Medicine; PCP Internal Medicine
DX: N10 Acute pyelonephritis (principal); E66.9 Obesity, unspecified; Z68.42 Body mass index [BMI] 45.0-49.9, adult; I10 Essential (primary) hypertension; E05.90 Thyrotoxicosis, unspecified without thyrotoxic crisis or storm; E11.9 Type 2 diabetes mellitus without complications; E78.5 Hyperlipidemia, unspecified; G47.33 Obstructive sleep apnea (adult) (pediatric); J45.909 Unspecified asthma, uncomplicated; Z87.440 Personal history of urinary (tract) infections; Z79.4 Long term (current) use of insulin; Z79.899 Other long term (current) drug therapy
CPT/HCPCS: 80048; 81001; 82962; 85025; 87040; 87086; 87088; 87186; 96365; 96374; 99284; J7050; A4216

== ENCOUNTER → 2021-01-27 | Outpatient (CLI) | payer MEDICARE, BC, SELFPAY | END | disposition home or self-care (01) | LOC: LABSPEC 10:23 | PROVIDERS: PCP Internal Medicine; Referring Provider Internal Medicine; Visit Provider Internal Medicine | DX: N12 Tubulo-interstitial nephritis, not specified as acute or chronic (principal); N28.9 Disorder of kidney and ureter, unspecified; N30.90 Cystitis, unspecified without hematuria; R10.9 Unspecified abdominal pain | CPT/HCPCS: 87086; 87088; 87186 ==

== ENCOUNTER → 2021-01-31 10:04 | Outpatient (CLI) | payer MEDICARE, BC, SELFPAY ==
--- NOTE | 2021-01-31 10:06 | US_ITS ---
STUDY: RENAL ULTRASOUND - COMPLETE REASON FOR EXAM: Female, 70 years old. Recurrent UTI, history kidney stone TECHNIQUE: Ultrasound evaluation of the kidneys was performed with real-time and static mark-scale imaging. COMPARISON: Comparison is made with prior study dated 11/13/2019. FINDINGS: RIGHT KIDNEY: Normal location of the right kidney, which is normal in size. The right kidney measures 10.8 cm x 5.7 cm x 5.3 cm. There is a normal cortex of the right kidney. The renal cortex measures 1.1 cm. There is no right renal mass or cyst. There is evidence of a 4 mm and 3 mm nonobstructive calculus in the right kidney. There is no right hydronephrosis. DISTAL RIGHT URETER: There is non-visualization of the distal right ureter. There is no demonstrated right ureterovesical junction calculus. There is a visualized right ureteral jet. LEFT KIDNEY: Normal location of the left kidney, which is normal in size. The left kidney measures 11.1 cm x 5.4 cm x 5.7 cm. There is a normal cortex of the left kidney. The renal cortex measures 1.3 cm. There is no left renal mass or cyst. There are no left renal calculi. There is no left hydronephrosis. DISTAL LEFT URETER: There is non-visualization of the distal left ureter. There is no demonstrated left ureterovesical junction calculus. There is a visualized left ureteral jet. BLADDER: The distended urinary bladder has a volume of 453 ml. There is a normal wall thickness of the distended urinary bladder. There is no demonstrated mass within the urinary bladder. There are no demonstrated bladder calculi. US/Kidney and Bladder IMPRESSION: There are 2 nonobstructive right intrarenal calculi. Electronically Signed: Heriberto Polanco MD at 14:03 EST , Service support ,
== END ==
PROVIDERS: PCP Internal Medicine; Referring Provider Internal Medicine; Visit Provider Internal Medicine
DX: N12 Tubulo-interstitial nephritis, not specified as acute or chronic (principal); N39.0 Urinary tract infection, site not specified; N20.0 Calculus of kidney
CPT/HCPCS: 76770

== ENCOUNTER 2021-02-10 14:16 | Emergency (ER) | payer MEDICARE, BC, SELFPAY ==
[2021-02-10 14:19] VITALS: BP 150/60; PULSE 73; RESP 18; TEMP 36.6; O2SAT 98; BMI 47.8
[2021-02-10 15:15] LABS: Bacteria 0 SEEN /hpf (None Seen); Mucous, Urine 0 SEEN /hpf (<or=2+)
[2021-02-10 15:19] LABS: Color, Urine Yellow (Yellow); Glucose, Dipstick 100 mg/dl (Normal); Ketone-Dipstick Negative (Negative); Leukocyte Esterase-Dipstick Negative /ul (Negative); Nitrite-Dipstick Negative (Negative); Occult Blood-Urine Negative /ul (Negative); Protein-Dipstick Negative (Negative); Urine Bilirubin Dipstick Negative (Negative); Urine Clarity Clear (Clear); Urine Urobilinogen Normal (Normal)
[2021-02-10 15:26] LABS: Red Blood Cells-Urine 0-5 SEEN /hpf (0-5); Squamous Epithelial Cells - UA 0-5 SEEN /hpf (5-10); White Blood Cells 0-5 SEEN /hpf (0-5)
--- NOTE | 2021-02-10 15:32 | CT_ITS ---
STUDY: CT ABDOMEN AND PELVIS WITH CONTRAST REASON FOR EXAM: Female, 70 years old. Diffuse abdominal pain RADIATION DOSAGE (If Supplied By Facility): CTDIvol = ( 17.07 ) mGy, DLP = ( 1279.55 ) mGycm TECHNIQUE: Transaxial images were obtained from the dome of the diaphragm to the symphysis pubis without oral contrast. IV 100mL Isovue-300 was administered. Sagittal and coronal images were reconstructed. Individualized dose optimization techniques were used for this CT. COMPARISON: 09/09/2020 FINDINGS: The visualized lung bases are unremarkable. The visualized portions of the heart are within normal limits. There is decreased attenuation of the liver consistent with steatosis. There are surgical clips in the gallbladder fossa consistent with a prior cholecystectomy. Normal spleen. Normal pancreas. Normal bilateral adrenal glands. Normal right kidney. Normal left kidney. Normal visualized stomach. Normal small intestine. There are a few scattered sigmoid diverticula without CT evidence of acute diverticulitis. The appendix is visualized and appears normal. Appendix seen on coronal recon image 66 Normal abdominal aorta. Normal inferior vena cava. Scattered subcentimeter mesenteric and retroperitoneal lymph nodes measuring up to 0.8 cm in short axis dimension. Normal urinary bladder. Normal abdominal wall. There are diffuse degenerative changes of the visualized lumbar spine, and pelvis. CT/Abdomen/Pelvis W IV Cont ONLY IMPRESSION: Fatty liver, no discrete lesion Sigmoid diverticulosis, no CT evidence of acute diverticulitis. Scattered subcentimeter mesenteric and retroperitoneal lymph nodes, no free intraperitoneal fluid or air Degenerative bony changes Electronically Signed: Binh Cat MD at 17:19 EST , Service support ,
--- NOTE | 2021-02-10 15:41 | EDS_ITS ---
HPI HPI - Female History of Present Illness Chief Complaint: Flank Pain Narrative Narrative: 70-year-old female presenting with flank pain on the right. She states she has a history of kidney stones and it feels similar. This has been going on for about a month intermittently. It became a little more persistent on the when she saw her primary care physician Dr. Jovel. He did check a urinalysis and she did have a UTI at that time. She was additionally put on Cipro and she had allergic reaction to this and 2 days later she was on Macrobid. Her urinary symptoms improved. She had an ultrasound of the kidneys which showed large stones. Her urinalysis was checked in the office in the form of a dip today. This showed no blood or infection. Patient was sent to the ER for evaluation. Patient does state that she has noticed that she has had some lower extremity edema recently which is new for her. She denies cough or shortness of breath. Does not have any chest pain. Patient states that she does intermittently get nausea and a sensation of chills. Patient also notes that her blood sugars have been in the 300s this month. She has not had any medication changes. She is not been on any steroids. [facility] Medical History Asthma Cancer Diabetes Diarrhea Hemorrhoids HTN (hypertension) Hyperlipidemia Hyperthyroidism Kidney disease Low back pain Non-smoker ANISHA (obstructive sleep apnea) Pyelonephritis Shoulder pain Thyroid disease Home Medications levothyroxine 300 mcg tablet 300 mcg PO DAILY tab 08/10/19 [History Last Taken Unknown] dulaglutide 1.5 mg/0.5 mL subcutaneous pen injector 1.5 mg SUBCUT QWEEK 10/24/20 [History Last Taken Unknown] fluticasone furoate 200 mcg/actuation blister powder for inhalation 1 inh INHALATION DAILY 10/24/20 [History Last Taken Unknown] insulin aspart U-100 100 unit/mL (3 mL) subcutaneous pen 25 unit SUBCUT TID ml 10/24/20 [History Last Taken Unknown] insulin glargine 100 unit/mL (3 mL) subcutaneous pen 44 unit SUBCUT BID ml 10/24/20 [History Last Taken Unknown] metformin 500 mg tablet,extended release 24 hr 500 mg PO BID #60 tab 10/28/20 [Rx Last Taken Unknown] hydrocodone-acetaminophen 1 tab PO Q6H PRN PRN 3 Days #12 tablet 12/31/20 [Rx Last Taken Unknown] promethazine 25 mg PO Q6H PRN PRN #12 tablet 12/31/20 [Rx Last Taken Unknown] losartan 100 mg tablet 100 mg PO DAILY #90 tab 01/27/21 [Rx Last Taken Unknown] lovastatin 20 mg tablet 20 mg PO QHS #90 tab 01/27/21 [Rx Last Taken Unknown] fluconazole 150 mg tablet 150 mg PO Q3D #2 tab 02/03/21 [Rx Last Taken Unknown] Allergy/AdvReac Type Severity Reaction Status Date / Time ciprofloxacin [From Cipro] Allergy Mild Rash Verified 02/10/21 14:21 ondansetron HCl Allergy Rash Verified 02/10/21 14:21 [From Zofran (as hydrochloride)] oxycodone HCl [From Percocet] Allergy Rash Verified 02/10/21 14:21 Penicillins [PCN] Allergy Other Verified 02/10/21 14:21 propoxyphene napsylate Allergy Rash Verified 02/10/21 14:21 [From Darvocet-N 100] shellfish derived Allergy Rash Verified 02/10/21 14:21 Family History Father Colon cancer Myocardial infarction Diabetes Hypertension Hyperlipemia Grandmother No problems noted. Mother Colon cancer Cancer Heart disease CVA (cerebral vascular accident) Diabetes Thyroid disorder Hypertension Myocardial infarction Hyperlipemia Brother Colon cancer Unknown Breast cancer 2 cousins Uncle Colon cancer Surgical History History of cholecystectomy History of colonoscopy (~08/14/19) History of esophagogastroduodenoscopy (EGD) S/P colonoscopy S/P hysterectomy S/P wrist surgery Status post laparoscopic cholecystectomy Stone, kidney Social History Smoking Status: Never smoker second hand exposure: No alcohol intake: current alcohol intake frequency: holidays/special occasions only substance use type: does not use caffeine: Yes what type of physical activity do you participate in: none frequency: does not exercise ROS ROS ED Constitutional Constitutional ED: Reports chills; Denies fever(s) Eyes Eyes: Denies blurry vision or change in vision ENT ENT ED: Denies ear pain or rhinorrhea Cardiovascular Cardiovascular: Denies chest pain or palpitations Respiratory/Chest Respiratory/Chest: Denies cough, dyspnea or stridor Gastrointestinal Gastrointestinal: Reports other Details: Right flank pain Genitourinary Genitourinary ED: Reports dysuria; Denies hematuria Musculoskeletal Musculoskeletal: Denies arthralgias or myalgias Integumentary Denies rash Neurologic Neurologic: Denies headache(s) or paresthesias Psychiatric Psychiatric: Denies anxiety or depression EXAM Physical Exam Const Vital Signs: 02/10/21 14:19 02/10/21 15:42 02/10/21 16:16 Temperature 97.8 F 97.8 F 97.9 F Temperature Source Temporal Temporal Temporal Pulse Rate 73 73 75 Respiratory Rate 18 18 18 Respiratory Effort Normal Non-Labored Blood Pressure 150/60 H 150/60 H 145/57 H Blood Pressure Mean 90 90 86 Pulse Ox 98 98 99 Oxygen Delivery Method Room Air Room Air Room Air 02/10/21 17:55 Temperature Temperature Source Pulse Rate 77 Respiratory Rate 16 Respiratory Effort Blood Pressure 171/65 H Blood Pressure Mean 100 Pulse Ox 96 Oxygen Delivery Method Room Air Positive well nourished General Appearance ED: NAD; Negative for pallor HEENT Reports moist mucous membranes Negative for trauma Eyes PERRL and EOMs intact bilaterally Resp normal respiratory effort and clear to auscultation bilaterally Cardio regular rate and regular rhythm GI GI Narrative: Mild tenderness to palpation in the right side of patient's abdomen. Abdomen nonperitoneal. Back/Spine General Back: CVA tenderness right Extremity General Extremety ED: Yes edema; Negative for tenderness General Extremity: edema Neuro oriented x3 and CN's II-XII intact bilaterally Sensorium / Orientation: alert Psych mental status grossly normal Skin General Skin Exam: Negative for jaundice or pallor MDM MDM MDM Narrative Medical decision making narrative: TSH, T4.Patient CBC and CMP are normal. Lipase is negative. Her primary care requested at 0.01 thyroid studies and her TS and her a little high at 3.08. Free T3 is normal. free T4 Fiona is low Urinalysis is negative. CT of the abdomen pelvis performed with IV contrast shows scattered retroperitoneal and mesenteric lymph nodes. This does explain the patient's pain. Since her urinalysis, blood work, are normal with only this finding I believe she safe to be discharged home. I did speak to the on-call for her primary to relay this. Patient is discharged home in stable condition. Impression: 1. Mesenteric adenitis Lab Data Labs: Laboratory Results - last 24 hr 02/10/21 02/10/21 02/10/21 15:05 16:00 16:00 WBC 10.2 RBC 4.93 Hgb 12.5 Hct 40.3 MCV 81.7 MCH 25.4 L MCHC 31.0 L RDW Std Deviation 42.5 RDW Coeff of Tara 14.5 Plt Count 266 MPV 9.9 Immature Gran % (Auto) 0.500 Neut % (Auto) 62.7 Lymph % (Auto) 23.5 [place] % (Auto) 10.4 H Eos % (Auto) 2.5 Baso % (Auto) 0.4 Absolute Neuts (auto) 6.4 Absolute Lymphs (auto) 2.39 Nucleated RBC % 0 Sodium 139 Potassium 3.9 Chloride 108 H Carbon Dioxide 27.0 Anion Gap 4 L BUN 12 Creatinine 0.96 Estim Creat Clear Calc 46.40 Est GFR (MDRD) Af Amer 74 Est GFR (MDRD) Non-Af 62 BUN/Creatinine Ratio 12.5 Glucose 94 Calcium 9.4 Total Bilirubin 0.40 AST 24 ALT 35 Alkaline Phosphatase 101 Total Protein 7.2 Albumin 2.9 L Globulin 4.3 H Albumin/Globulin Ratio 0.7 L Lipase 146 TSH < 0.01 L Free T4 3.08 H Free T3 pg/dL 3.7 Urine Color Yellow Urine Clarity Clear Urine pH 7.0 Ur Specific [place] 1.010 Urine Protein Negative Urine Glucose (UA) 100 H Urine Ketones Negative Urine Occult Blood Negative Urine Nitrite Negative Urine Bilirubin Negative Urine Urobilinogen Normal Ur Leukocyte Esterase Negative Urine RBC 0-5 SEEN Urine WBC 0-5 SEEN Ur Squamous Epith Cells 0-5 SEEN Urine Bacteria 0 SEEN Urine Mucus 0 SEEN Radiography Diagnostic Testing: Clinical Impression(s) from Imaging Studies Abdomen/Pelvis CT 02/10/21 15:32 IMPRESSION: Fatty liver, no discrete lesion Sigmoid diverticulosis, no CT evidence of acute diverticulitis. Scattered subcentimeter mesenteric and retroperitoneal lymph nodes, no free intraperitoneal fluid or air Degenerative bony changes Electronically Signed: Binh Cat MD at 17:19 EST , Service support , Discharge Plan Triage Chief Complaint: Flank Pain ED Provider: Darren Calle Dx/Rx/DC Orders Instructions: ED Adenitis, Mesenteric Prescriptions: No Action levothyroxine 300 mcg tablet 300 mcg PO DAILY RF: 0 metformin 500 mg tablet extended release 24 hr 500 mg PO BID Qty: 60 RF: 5 Lantus Solostar U-100 Insulin 100 unit/mL (3 mL) insulin pen 44 unit subcut BID RF: 0 insulin aspart U-100 [Novolog Flexpen U-100 Insulin] 100 unit/mL (3 mL) insulin pen 25 unit subcut TID RF: 0 Trulicity 1.5 mg/0.5 mL pen injector 1.5 mg subcut QWEEK RF: 0 Arnuity Ellipta 200 mcg/actuation blister with device 1 inh inhalation DAILY RF: 0 losartan 100 mg tablet 100 mg PO DAILY Qty: 90 RF: 3 lovastatin 20 mg tablet 20 mg PO QHS Qty: 90 RF: 3 fluconazole [Diflucan] 150 mg tablet 150 mg PO Q3D Qty: 2 RF: 1 hydrocodone-acetaminophen [hydrocodone-acetaminophen] 1 TABLET tablet 1 tab PO Q6H PRN PRN (Reason: Pain) 3 Days Qty: 12 RF: 0 promethazine [promethazine] 25 MG tablet 25 mg PO Q6H PRN PRN (Reason: Nausea) Qty: 12 RF: 0 Primary Care Provider: Allison Gomez Referrals: Allison Gomez MD [Primary Care Provider] - Disposition Disposition: Home, Self Care
[2021-02-10 15:42] VITALS: BP 150/60; PULSE 73; RESP 18; TEMP 36.6; O2SAT 98
[2021-02-10] MEDS: Morphine 4 MG/ML Syringe IV ×2 (16:05→17:53)
[2021-02-10] MEDS: proMETHazine 25 MG/ML Syringe 12.5 MG IM (16:05)
[2021-02-10 16:07] LABS: Absolute Lymphocyte Count 2.39 X10^3/uL (0.83-4.51); Absolute Neutrophil Count 6.4 X10^3/uL (2.0-7.7); Basophil# 0.04 X10^3/uL; Basophil% 0.4 % (0-1); Eosinophil# 0.25 X10^3/uL; Eosinophils% 2.5 % (0-5); Hematocrit 40.3 % (37-47); Hemoglobin 12.5 g/dL (12.0-15.0); Lymphocyte # 2.39 X10^3/ul (0.83-4.51); Lymphocyte % 23.5 % (19-41); Mean Corpuscular Hgb 25.4 pg (27.0-32.0); Mean Corpuscular Volume 81.7 fL (81-99); Mean Platelet Vol. 9.9 fl (6.2-12.0); Monocyte# 1.06 X10^3/uL; Monocyte% 10.4 % (0-10); NRBC Flagged by Analyzer 0 % (0-5); Neutrophil # 6.36 X10^3/uL (2.7-7.7); Neutrophil % 62.7 % (47-70); Platelet Count 266 K/mm3 (150-450); RBC Distribution Width CV 14.5 % (11.6-14.6); RBC Distribution Width SD 42.5 fl (35.1-43.9); Red Blood Count 4.93 M/mm3 (4.2-5.4); White Blood Count 10.2 K/mm3 (4.4-11.0)
[2021-02-10 16:16] VITALS: BP 145/57; PULSE 75; RESP 18; TEMP 36.6; O2SAT 99
[2021-02-10 16:37] LABS: ALB/GLOB Ratio 0.7 RATIO (0.9-2.4); AST(SGOT) 24 U/L (15-37); Alanine Aminotransfer ALT/SGPT 35 U/L (13-56); Albumin, Serum 2.9 g/dL (3.2-5.0); Alkaline Phosphatase 101 U/L (45-117); Anion Gap 4 (5-15); BUN 12 mg/dL (7-18); BUN/Creat Ratio 12.5 RATIO (10-20); Calcium,Total 9.4 mg/dL (8.5-10.1); Chloride 108 mmol/L (98-107); Creatinine, Serum 0.96 mg/dL (0.55-1.02); EST Glomerular Filtration Rate 62 mL/min (>60); Est Glom Filt Rate - Afr Amer 74 mL/min (>60); Free T3 3.7 pg/mL (2.18-3.98); Globulin 4.3 g/dL (2.2-4.2); Glucose 94 mg/dL (74-106); Lipase 146 U/L (73-393); Potassium 3.9 mmol/L (3.5-5.1); Protein, Total 7.2 g/dL (6.4-8.2); Sodium Level 139 mmol/L (136-145); T4 Free Direct 3.08 ng/dL (0.76-1.46); Thyroid Stim Hormone (TSH) < 0.01 uIU/mL (0.358-3.74)
[2021-02-10 17:55] VITALS: BP 171/65; PULSE 77; RESP 16; O2SAT 96
== END 2021-02-10 18:30 | disposition home or self-care (01) ==
PROVIDERS: Emergency Provider Student in an Organized Health Care Education/Training Program; PCP Internal Medicine
DX: I88.0 Nonspecific mesenteric lymphadenitis (principal); I10 Essential (primary) hypertension; E11.9 Type 2 diabetes mellitus without complications; K76.0 Fatty (change of) liver, not elsewhere classified; E78.5 Hyperlipidemia, unspecified; E05.90 Thyrotoxicosis, unspecified without thyrotoxic crisis or storm; G47.33 Obstructive sleep apnea (adult) (pediatric); J45.909 Unspecified asthma, uncomplicated; Z87.19 Personal history of other diseases of the digestive system; Z87.442 Personal history of urinary calculi; Z79.4 Long term (current) use of insulin; Z79.899 Other long term (current) drug therapy
CPT/HCPCS: 74177; 80053; 81001; 83690; 84439; 84443; 84481; 85025; 96372; 96374; 96376; 99285; Q9967; A4216

== ENCOUNTER → 2021-02-21 | Outpatient (CLI) | payer MEDICARE, BC, SELFPAY | END | disposition home or self-care (01) | LOC: LABSPEC 13:54 | PROVIDERS: PCP Internal Medicine; Referring Provider Physician Assistant; Visit Provider Physician Assistant | DX: U07.1 COVID-19 (principal) | CPT/HCPCS: 87635; U0005; U0003 ==

== ENCOUNTER 2021-04-07 13:05 | Outpatient (CLI) | payer MEDICARE, SELFPAY ==
[2021-04-07 15:55] LABS: Free T3 2.2 pg/mL (2.18-3.98); T4 Free Direct 2.05 ng/dL (0.76-1.46); Thyroid Stim Hormone (TSH) < 0.01 uIU/mL (0.358-3.74)
== END 2021-04-07 23:59 | disposition short-term general hospital (02) ==
LOC: BIMLAB 13:07
PROVIDERS: PCP Internal Medicine; Referring Provider Internal Medicine; Visit Provider Internal Medicine
DX: I10 Essential (primary) hypertension (principal); E07.9 Disorder of thyroid, unspecified
CPT/HCPCS: 36415; 84439; 84443; 84481

== ENCOUNTER → 2021-10-13 | Outpatient (CLI) | payer MEDICARE, SELFPAY ==
[2021-10-13 12:03] LABS: Bacteria 0 SEEN /hpf (None Seen); Mucous, Urine 0 SEEN /hpf (<or=2+); Red Blood Cells-Urine 0 SEEN /hpf (0-5); Squamous Epithelial Cells - UA 0 SEEN /hpf (5-10); White Blood Cells 0 SEEN /hpf (0-5)
[2021-10-13 13:16] LABS: Color, Urine Yellow (Yellow); Glucose, Dipstick 1000 mg/dl (Normal); Ketone-Dipstick Negative (Negative); Leukocyte Esterase-Dipstick Negative /ul (Negative); Nitrite-Dipstick Negative (Negative); Occult Blood-Urine Negative /ul (Negative); Protein-Dipstick Negative (Negative); Urine Bilirubin Dipstick Negative (Negative); Urine Clarity Clear (Clear); Urine Urobilinogen Normal (Normal)
[2021-10-13 13:17] LABS: Absolute Lymphocyte Count 2.01 X10^3/uL (0.83-4.51); Absolute Neutrophil Count 5.2 X10^3/uL (2.0-7.7); Basophil# 0.04 X10^3/uL; Basophil% 0.5 % (0-1); Eosinophil# 0.16 X10^3/uL; Hematocrit 40.7 % (37-47); Hemoglobin 12.5 g/dL (12.0-15.0); Lymphocyte # 2.01 X10^3/ul (0.83-4.51); Lymphocyte % 24.8 % (19-41); Mean Corp Hgb Conc 30.7 g/dL (32-36); Mean Corpuscular Hgb 26.4 pg (27.0-32.0); Mean Corpuscular Volume 85.9 fL (81-99); Monocyte# 0.67 X10^3/uL; Monocyte% 8.3 % (0-10); NRBC Flagged by Analyzer 0 % (0-5); Neutrophil % 63.9 % (47-70); Platelet Count 251 K/mm3 (150-450); RBC Distribution Width CV 14.5 % (11.6-14.6); RBC Distribution Width SD 45.7 fl (35.1-43.9); Red Blood Count 4.74 M/mm3 (4.2-5.4); White Blood Count 8.1 K/mm3 (4.4-11.0)
[2021-10-13 13:39] LABS: Hemoglobin A1c 10.2 % (3.8-5.6)
[2021-10-13 13:58] LABS: ALB/GLOB Ratio 0.8 RATIO (0.9-2.4); AST(SGOT) 19 U/L (15-37); Alanine Aminotransfer ALT/SGPT 33 U/L (13-56); Alkaline Phosphatase 84 U/L (45-117); Anion Gap 5 (5-15); BUN 20 mg/dL (7-18); BUN/Creat Ratio 15.7 RATIO (10-20); Calcium,Total 8.9 mg/dL (8.5-10.1); Chloride 105 mmol/L (98-107); Cholesterol 148 mg/dL (200); Creatinine, Serum 1.27 mg/dL (0.55-1.02); EST Glomerular Filtration Rate 44 mL/min (>60); Est Glom Filt Rate - Afr Amer 54 mL/min (>60); Free T3 2.4 pg/mL (2.18-3.98); Glucose 355 mg/dL (74-106); High Density Lipoprotein 36 mg/dL; Potassium 4.4 mmol/L (3.5-5.1); Sodium Level 137 mmol/L (136-145); T4 Free Direct 1.93 ng/dL (0.76-1.46); Thyroid Stim Hormone (TSH) 0.01 uIU/mL (0.358-3.74); Triglycerides 194 mg/dL; Very Low Density Lipoprotein 39 mg/dL (5-40)
== END | disposition home or self-care (01) ==
PROVIDERS: PCP Internal Medicine; Referring Provider Internal Medicine; Visit Provider Internal Medicine
DX: E78.5 Hyperlipidemia, unspecified (principal); E66.01 Morbid (severe) obesity due to excess calories; E11.9 Type 2 diabetes mellitus without complications; N20.0 Calculus of kidney; R10.9 Unspecified abdominal pain; I10 Essential (primary) hypertension; E05.90 Thyrotoxicosis, unspecified without thyrotoxic crisis or storm; E07.9 Disorder of thyroid, unspecified
CPT/HCPCS: 36415; 80053; 80061; 81001; 83036; 84439; 84443; 84481; 85025

== ENCOUNTER 2021-10-15 20:17 | Emergency (ER) | payer MEDICARE, SELFPAY ==
[2021-10-15 20:18] VITALS: BP 157/67; PULSE 75; RESP 15; TEMP 36.6; O2SAT 94; BMI 50.3
--- NOTE | 2021-10-15 21:09 | CT_ITS ---
STUDY: CT BRAIN WITHOUT CONTRAST REASON FOR EXAM: Female, 70 years old. headache RADIATION DOSAGE (If Supplied By Facility): CTDIvol = ( 44.99 ) mGy, DLP = ( 829.85 ) mGycm TECHNIQUE: Transaxial CT imaging of the brain was performed without administration of intravenous contrast material. Individualized dose optimization techniques were used for this CT. COMPARISON: No relevant priors. FINDINGS: Normal soft tissue structures. Normal calvarium. Normal size ventricles and extra-axial spaces for the patient''s age. Normal white matter tracts of the cerebral hemispheres. Normal basal ganglia and thalami. Normal brainstem. Normal cerebellum. There is no intracranial hemorrhage. There are no findings of an acute ischemic infarction. Normal visualized paranasal sinuses. CT/Brain/Head without Contrast IMPRESSION: No evidence of acute intracranial bleed, mass or ischemia. Electronically Signed: Pablo Jenkins DO at 22:08 EDT ,
--- NOTE | 2021-10-15 21:10 | EX.ED.VIS.HA ---
HPI History of Present Illness Chief Complaint: Headache Informant: patient Onset/Context/Timing Onset: Days Context: Gradual Timing: Continuous Quality -Headache: Positive for Throbbing Current Severity: Moderate Maximum Severity: Moderate Associated Symptoms/Injury Associated Symptoms: Positive for Nausea and Photophobia; Negative for Fever, Vomiting, Sore Throat, Sinus Pressure, Numbness, Tingling, Preceding Aura, Visual Changes, Blurred Vision or Visual Loss Injury - [place]ESBTROOK: Negative for Direct Trauma, Fall or Assault Narrative Narrative: 70-year-old female history of hypertension diabetes. States that she has had a headache all day is gradual in onset. She denies any fall injury or trauma. Patient headache yesterday was gradual in onset. She went to bed she woke with a worse headache today. She had nausea no vomiting. She took 4 ibuprofen at work around noon without any significant improvement. She typically does not get headaches. She has had no trauma. She has had no fever. No neck pain. She does have photophobia with it. No weakness or numbness. No ataxia. No family history of intracranial bleeds or aneurysms. Prior similar symptoms: No Recent Illness/Hospitalization: No PFSH PFSH Medical History Asthma BiPAP (biphasic positive airway pressure) dependence Cancer Diabetes Diarrhea GERD (gastroesophageal reflux disease) Hemorrhoids HTN (hypertension) Hyperlipidemia Hyperthyroidism Kidney disease Low back pain Non-smoker ANISHA (obstructive sleep apnea) Pyelonephritis Shoulder pain Thyroid disease Home Medications fluticasone furoate 200 mcg/actuation blister powder for inhalation (Arnuity Ellipta) 1 inh inhalation DAILY #30 ea 02/18/21 [Rx Last Taken Unknown] dulaglutide 1.5 mg/0.5 mL subcutaneous pen injector (Trulicity) 1.5 mg (0.5 mL) subcut QWEEK #2 mL 05/08/21 [Rx Last Taken Unknown] insulin aspart U-100 100 unit/mL (3 mL) subcutaneous pen (Novolog Flexpen U-100 Insulin aspart) 25 unit (0.25 mL) subcut TID #15 mL 05/08/21 [Rx Last Taken Unknown] metformin 500 mg tablet,extended release 24 hr 500 mg PO BID #180 tabs 05/08/21 [Rx Last Taken Unknown] flash glucose sensor (FreeStyle Mary Ann 14 Day Sensor kit) #2 ea 06/05/21 [Rx Last Taken Unknown] lovastatin 20 mg tablet 20 mg PO QHS cholesterol #90 tabs 10/06/21 [Rx Last Taken Unknown] insulin glargine 100 unit/mL (3 mL) subcutaneous pen (Lantus Solostar U-100 Insulin) 60 unit subcut BID 10/15/21 [History Last Taken Unknown] levothyroxine 200 mcg tablet 200 mcg PO DAILY 10/15/21 [History Last Taken Unknown] losartan 100 mg-hydrochlorothiazide 12.5 mg tablet 1 tab PO DAILY #30 tabs 10/15/21 [Rx Last Taken Unknown] Allergy/AdvReac Type Severity Reaction Status Date / Time ciprofloxacin [From Cipro] Allergy Mild Rash Verified 10/15/21 20:22 ondansetron HCl Allergy Rash Verified 10/15/21 20:22 [From Zofran (as hydrochloride)] oxycodone HCl [From Percocet] Allergy Rash Verified 10/15/21 20:22 Penicillins [PCN] Allergy Other Verified 10/15/21 20:22 propoxyphene napsylate Allergy Rash Verified 10/15/21 20:22 [From Darvocet-N 100] shellfish derived Allergy Rash Verified 10/15/21 20:22 Family History Father Colon cancer Myocardial infarction Diabetes Hypertension Hyperlipemia Grandmother No problems noted. Mother Colon cancer Cancer Heart disease CVA (cerebral vascular accident) Diabetes Thyroid disorder Hypertension Myocardial infarction Hyperlipemia Brother Colon cancer Unknown Breast cancer 2 cousins Uncle Colon cancer Surgical History H/O: hysterectomy History of cholecystectomy History of colonoscopy (~08/14/19) History of esophagogastroduodenoscopy (EGD) S/P colonoscopy S/P hysterectomy S/P wrist surgery Status post laparoscopic cholecystectomy Stone, kidney Social History Smoking Status: Never smoker second hand exposure: No alcohol intake: current alcohol intake frequency: holidays/special occasions only substance use type: does not use caffeine: Yes what type of physical activity do you participate in: none frequency: does not exercise ROS ROS ED ROS Narrative Headache. Nausea. Review of Systems ROS Unobtainable: Denies due to encephalopathy Constitutional Constitutional ED: Denies chills or fever(s) Eyes Eyes: Denies blurry vision ENT ENT ED: Denies ear pain, rhinorrhea or sore throat Cardiovascular Cardiovascular: Denies chest pain Respiratory/Chest Respiratory/Chest: Denies cough or dyspnea Gastrointestinal Gastrointestinal: Reports nausea; Denies abdominal pain, constipation, diarrhea, melena or vomiting Genitourinary Genitourinary ED: Denies dysuria or hematuria Musculoskeletal Musculoskeletal: Denies arthralgias Integumentary Denies abscess Neurologic Neurologic: Reports headache(s) Psychiatric Psychiatric: Denies anxiety Endocrine Endocrinology: Denies polydipsia Hematologic/Lymphatic Hematologic/Lymphatic: Denies easy bleeding Allergic/Immunologic Allergic/Immunologic ED: Denies mouth swelling EXAM Physical Exam Narrative Exam Narrative: 62-year-old female no acute distress vital signs stable afebrile. Initial blood pressure 137/67. H EENT exam unremarkable atraumatic. Pupils round reactive light. Photophobic. Neck nontender no meningismus. Able to touch chin to chest. Lungs clear. Heart regular rhythm no murmur. Abdomen soft nontender. Moving all 4 extremities. Neurologically she is awake alert with no focal motor deficits. NIH is 0. Fingertip to nose within normal limits. Const Vital Signs: 10/15/21 20:18 Temperature 97.9 F Temperature Source Temporal Pulse Rate 75 Respiratory Rate 15 Blood Pressure 157/67 H Blood Pressure Mean 97 Pulse Ox 94 Oxygen Delivery Method Room Air Positive well nourished, well developed and obese; Negative for cachectic, contractures or unkempt General Appearance ED: well developed; Negative for unkempt, cachectic or contractures Nutritional Appearance: obese; Negative for cachectic HEENT Reports normocephalic and moist mucous membranes; Denies dry mucous membranes atraumatic; Negative for trauma or tenderness Face and Sinus: Negative for sinus tenderness Mouth ED: No dry mucous membranes Mouth: No dry mucous membranes Eyes PERRL and EOMs intact bilaterally General Eye ED: Negative for pale conjunctiva or scleral icterus Neck no lymphadenopathy, supple, no meningeal signs and no JVD General: Negative for tenderness Resp normal respiratory effort and clear to auscultation bilaterally Effort and Inspection: Negative for retractions Auscultation: Negative for rales, rhonchi or wheezes Cardio regular rate, regular rhythm, S1 normal heart sound and S2 normal heart sound Rate: Negative for bradycardia Rhythm: Negative for abnormal rhythm GI non-tender and non-distended Auscultation: normoactive bowel sounds; Negative for hyperactive bowel sounds or hypoactive bowel sounds Palpation: soft; Negative for firm or tender Back/Spine no CVA tenderness General Back: Negative for CVA tenderness Cervical Spine: Negative for cervical spine tenderness Thoracic Spine / Upper Back: Negative for thoracic spinal tenderness Lumbar Spine / Lower Back: Negative for lumbar spinal tenderness Extremity normal to inspection and full ROM General Extremety ED: Negative for edema or tenderness General Extremity: Negative for edema Neuro oriented x3 and CN's II-XII intact bilaterally Sensorium / Orientation: awake, alert, oriented to person, oriented to place and oriented to time; Negative for orientation impaired, lethargic or stuporous Coordination / Balance: [id number] test normal Speech: speech normal Motor Exam: strength 5/5 throughout Psych Appearance: Negative for unkempt Skin Lesions: no lesions Rashes: no rashes MDM MDM MDM Narrative Medical decision making narrative: 70-year-old female with a headache. Typically denies history of headache. Normal neurologic exam. CAT scan and labs being done. She is diabetic and her blood sugars are running elevated. She will be given morphine for her headache and nausea medication. Neurologic exam is normal. Repeat exam she is doing well at 10:20 PM. Headache is much improved with the IV medication. 1045. Urinalysis negative. She will be discharged home. Discussed all test results with her and her family at bedside. Lab Data Attestation: I reviewed the patient's lab results. Lab results narrative: CT of the brain shows no acute abnormality. Read by the radiologist reviewed by me. CBC shows white count 13.5. H&H 12 and 40. Platelet count 256. Electrolytes unremarkable gap of 5. BUN 24 creatinine 1.41. Glucose 133. Acetone is negative. Urinalysis negative. Labs: Laboratory Results - last 24 hr 10/15/21 10/15/21 10/15/21 21:05 21:05 21:05 WBC 13.5 H RBC 4.77 Hgb 12.7 Hct 40.4 MCV 84.7 MCH 26.6 L MCHC 31.4 L RDW Std Deviation 44.1 H RDW Coeff of Tara 14.4 Plt Count 256 MPV 10.6 Immature Gran % (Auto) 0.600 Neut % (Auto) 68.6 Lymph % (Auto) 21.3 [place] % (Auto) 7.6 Eos % (Auto) 1.5 Baso % (Auto) 0.4 Absolute Neuts (auto) 9.3 H Absolute Lymphs (auto) 2.89 Nucleated RBC % 0 Sodium 139 Potassium 3.9 Chloride 107 Carbon Dioxide 27.0 Anion Gap 5 BUN 24 H Creatinine 1.41 H Estim Creat Clear Calc 31.59 Est GFR (MDRD) Af Amer 48 L Est GFR (MDRD) Non-Af 39 L BUN/Creatinine Ratio 17.0 Glucose 133 H Calcium 9.5 Urine Color Urine Clarity Urine pH Ur Specific Warren Urine Protein Urine Glucose (UA) Urine Ketones Urine Occult Blood Urine Nitrite Urine Bilirubin Urine Urobilinogen Ur Leukocyte Esterase Urine RBC Urine WBC Ur Squamous Epith Cells Urine Bacteria Urine Mucus Acetone Level NEGATIVE 10/15/21 22:30 WBC RBC Hgb Hct MCV MCH MCHC RDW Std Deviation RDW Coeff of Tara Plt Count MPV Immature Gran % (Auto) Neut % (Auto) Lymph % (Auto) [place] % (Auto) Eos % (Auto) Baso % (Auto) Absolute Neuts (auto) Absolute Lymphs (auto) Nucleated RBC % Sodium Potassium Chloride Carbon Dioxide Anion Gap BUN Creatinine Estim Creat Clear Calc Est GFR (MDRD) Af Amer Est GFR (MDRD) Non-Af BUN/Creatinine Ratio Glucose Calcium Urine Color Yellow Urine Clarity Clear Urine pH 5.0 Ur Specific [place] 1.020 Urine Protein Negative Urine Glucose (UA) Normal Urine Ketones 5 H Urine Occult Blood Negative Urine Nitrite Negative Urine Bilirubin Negative Urine Urobilinogen Normal Ur Leukocyte Esterase Negative Urine RBC 0 SEEN Urine WBC 0-5 SEEN Ur Squamous Epith Cells 0 SEEN Urine Bacteria 0 SEEN Urine Mucus 0 SEEN Acetone Level Radiography Diagnostic Testing: Clinical Impression(s) from Imaging Studies Brain CT 10/15/21 21:09 IMPRESSION: No evidence of acute intracranial bleed, mass or ischemia. Electronically Signed: Pablo Jenkins DO at 22:08 EDT , Discharge Plan Triage Chief Complaint: Headache ED Provider: Micah Young Dx/Rx/DC Orders Clinical Impression: Headache, History of chronic hypertension, History of diabetes mellitus Instructions: ED Headache Unspecified Prescriptions: No Action levothyroxine 200 mcg tablet 200 mcg PO DAILY Rx Instructions: Take 200mcg tablet once daily with a 25mcg tablet at the same time. Lantus Solostar U-100 Insulin 100 unit/mL (3 mL) insulin pen 60 unit subcut BID Arnuity Ellipta 200 mcg/actuation blister with device 1 inh inhalation DAILY Qty: 30 6RF Trulicity 1.5 mg/0.5 mL pen injector 1.5 mg subcut QWEEK Qty: 2 5RF Rx Instructions: tuesdays insulin aspart U-100 [Novolog Flexpen U-100 Insulin] 100 unit/mL (3 mL) insulin pen 25 unit subcut TID Qty: 15 5RF metformin 500 mg tablet extended release 24 hr 500 mg PO BID Qty: 180 3RF (DME) FreeStyle Mary Ann 14 Day Sensor Kit See Rx Instructions .ROUTE .MEDSUPPLY Qty: 2 3RF Rx Instructions: As directed lovastatin 20 mg tablet 20 mg PO QHS Qty: 90 3RF losartan-hydrochlorothiazide 100-12.5 mg tablet 1 tab PO DAILY Qty: 30 3RF Primary Care Provider: Allison Gomez Referrals: Allison Gomez MD [Primary Care Provider] - 3-5 Days if not improving Activity Restrictions/Additional Instructions: Tylenol for pain. Watch your blood pressures and log them twice daily and follow-up your primary care physician Return if feeling worse. Your labs and CAT scan tonight were unremarkable. Disposition Disposition: Home, Self Care
[2021-10-15] MEDS: morphine 8 MG/ML Syringe IV (21:18)
[2021-10-15] MEDS: 0.9% Normal Saline 1,000 ML 1000 ML IV (21:18)
[2021-10-15 21:20] LABS: Absolute Lymphocyte Count 2.89 X10^3/uL (0.83-4.51); Absolute Neutrophil Count 9.3 X10^3/uL (2.0-7.7); Basophil# 0.05 X10^3/uL; Basophil% 0.4 % (0-1); Eosinophils% 1.5 % (0-5); Hematocrit 40.4 % (37-47); Hemoglobin 12.7 g/dL (12.0-15.0); Lymphocyte # 2.89 X10^3/ul (0.83-4.51); Lymphocyte % 21.3 % (19-41); Mean Corp Hgb Conc 31.4 g/dL (32-36); Mean Corpuscular Hgb 26.6 pg (27.0-32.0); Mean Corpuscular Volume 84.7 fL (81-99); Mean Platelet Vol. 10.6 fl (6.2-12.0); Monocyte# 1.03 X10^3/uL; Monocyte% 7.6 % (0-10); NRBC Flagged by Analyzer 0 % (0-5); Neutrophil # 9.29 X10^3/uL (2.7-7.7); Neutrophil % 68.6 % (47-70); Platelet Count 256 K/mm3 (150-450); RBC Distribution Width CV 14.4 % (11.6-14.6); RBC Distribution Width SD 44.1 fl (35.1-43.9); Red Blood Count 4.77 M/mm3 (4.2-5.4); White Blood Count 13.5 K/mm3 (4.4-11.0)
[2021-10-15] MEDS: Metoclopramide 10 MG/2 ML Vial 5 MG IV (21:23)
[2021-10-15 21:48] LABS: Anion Gap 5 (5-15); BUN 24 mg/dL (7-18); Calcium,Total 9.5 mg/dL (8.5-10.1); Chloride 107 mmol/L (98-107); Creatinine, Serum 1.41 mg/dL (0.55-1.02); EST Glomerular Filtration Rate 39 mL/min (>60); Est Glom Filt Rate - Afr Amer 48 mL/min (>60); Estimated Creatinine Clearance 31.59 ml/min; Glucose 133 mg/dL (74-106); Potassium 3.9 mmol/L (3.5-5.1); Sodium Level 139 mmol/L (136-145)
[2021-10-15 22:35] LABS: Bacteria 0 SEEN /hpf (None Seen); Mucous, Urine 0 SEEN /hpf (<or=2+); Red Blood Cells-Urine 0 SEEN /hpf (0-5); Squamous Epithelial Cells - UA 0 SEEN /hpf (5-10)
[2021-10-15 22:38] LABS: Color, Urine Yellow (Yellow); Glucose, Dipstick Normal (Normal); Ketone-Dipstick 5 mg/dl (Negative); Leukocyte Esterase-Dipstick Negative /ul (Negative); Nitrite-Dipstick Negative (Negative); Occult Blood-Urine Negative /ul (Negative); Protein-Dipstick Negative (Negative); Urine Bilirubin Dipstick Negative (Negative); Urine Clarity Clear (Clear); Urine Urobilinogen Normal (Normal)
[2021-10-15 22:44] LABS: White Blood Cells 0-5 SEEN /hpf (0-5)
[2021-10-15 23:00] VITALS: BP 119/67; PULSE 64; RESP 15; O2SAT 97
== END 2021-10-15 23:01 | disposition home or self-care (01) ==
PROVIDERS: Emergency Provider Emergency Medicine; PCP Internal Medicine; Visit Provider Emergency Medicine
DX: R51.9 Headache, unspecified (principal); Z68.43 Body mass index [BMI] 50.0-59.9, adult; E11.9 Type 2 diabetes mellitus without complications; Z79.4 Long term (current) use of insulin; J45.909 Unspecified asthma, uncomplicated; K21.9 Gastro-esophageal reflux disease without esophagitis; E78.5 Hyperlipidemia, unspecified; E05.90 Thyrotoxicosis, unspecified without thyrotoxic crisis or storm; G47.33 Obstructive sleep apnea (adult) (pediatric); Z87.442 Personal history of urinary calculi; Z79.899 Other long term (current) drug therapy; E66.9 Obesity, unspecified; R11.0 Nausea
CPT/HCPCS: 70450; 80048; 81001; 82009; 85025; 96361; 96374; 96375; 99283; J7030; A4216; J2405

== ENCOUNTER → 2021-10-27 | Outpatient (CLI) | payer MEDICARE, SELFPAY ==
--- NOTE | 2021-10-27 14:50 | CT_ITS ---
STUDY: CT Abdomen And Pelvis W/O Contrast Injection 10/27/2021 4:16 PM REASON FOR EXAM: Female, 70 years old. ABDOMINAL PAIN Flank pain, acute and chronic. Hx kidney stone Technologist Notes right flank pain, hx stones 8 months ago (most recent), prior lithotripsy, hypertension, diabetes, cholecystectomy, NISHA/BSO. TECHNIQUE: Transaxial images were obtained without oral contrast, and without intravenous contrast. Individualized dose optimization techniques were used for this CT. COMPARISON: Feb 10 2021 4:57pm FINDINGS: There are atherosclerotic calcifications of visualized coronary arteries. The visualized portions of the heart are within normal limits. Unremarkable liver. There are surgical clips in the gallbladder fossa consistent with a prior cholecystectomy. Unremarkable spleen. Unremarkable pancreas. Unremarkable bilateral adrenal glands. Non obstructive 2 mm right renal parenchymal stones. No acute findings of the left kidney. Unremarkable visualized stomach. Unremarkable small intestine. There are multiple colonic diverticula consistent with diverticulosis. The appendix is visualized and appears unremarkable. There are no acute findings of the abdominal aorta. Unremarkable inferior vena cava. Subcentimeter mesenteric lymph nodes. Unremarkable urinary bladder. There is absence of the uterus consistent with a prior hysterectomy. Unremarkable abdominal wall. There are diffuse degenerative changes of the visualized lumbar spine. CT/Abdomen/Pelvis without Cont IMPRESSION: (NOT LISTED IN ORDER OF SIGNIFICANCE) There are multiple colonic diverticula consistent with diverticulosis. Non obstructive 2 mm right renal parenchymal stones. Other findings as above. Electronically Signed: Sreekanth Li MD at 16:18 EDT ,
[2021-10-27 16:23] LABS: T4 Free Direct 1.78 ng/dL (0.76-1.46); Thyroid Stim Hormone (TSH) 0.02 uIU/mL (0.358-3.74)
== END | disposition home or self-care (01) ==
PROVIDERS: PCP Internal Medicine; Visit Provider Internal Medicine
DX: E03.9 Hypothyroidism, unspecified (principal); E10.9 Type 1 diabetes mellitus without complications; N20.9 Urinary calculus, unspecified
CPT/HCPCS: 36415; 74176; 84439; 84443; 84481

== ENCOUNTER 2021-12-02 07:52 | Day surgery (SDC) | payer MEDICARE, SELFPAY ==
[2021-12-02] MEDS: Lactated Ringers 1,000 ML 15 ML IV (08:15)
[2021-12-02 08:17] VITALS: BP 146/54; PULSE 62; RESP 16; TEMP 37.3; O2SAT 97; BMI 49.1
--- NOTE | 2021-12-02 08:24 | HP.PCM_ITS ---
[facility] - General General Date of Service: 12/02/21 [facility] Narrative NIMO MCCLOUD, is a 70 F who presents for a surveillance colonoscopy. She states she has a previous history of colon polyps. She states that her older brother of colon cancer and a younger brother had a colectomy and is still alive. Her father had colon cancer. She is at high risk. She presents via open access today. Previous colonoscopy was August 14, 2019. Random biopsies were obtained were unremarkable. Fortunately at this time no bright red blood per rectum or melena. Patient presents at her request. [facility] Medical History (Updated 12/02/21 @ 08:[address] Todd Monge MD) Alcohol use Arthritis Asthma BiPAP (biphasic positive airway pressure) dependence Cancer Chronic cough Diabetes Diarrhea Dietary restriction Easy bruising GERD (gastroesophageal reflux disease) Hemorrhoids History of colon polyps History of diverticulitis History of echocardiogram History of edema History of stress test HTN (hypertension) Hyperlipidemia Hyperthyroidism Kidney disease Leg cramps Low back pain Non-smoker ANISHA (obstructive sleep apnea) Pyelonephritis Restless legs Shortness of breath on exertion Shoulder pain Thyroid disease Wears dentures Wears glasses Home Medications insulin aspart U-100 100 unit/mL (3 mL) subcutaneous pen (Novolog Flexpen U-100 Insulin aspart) 25 unit (0.25 mL) subcut TID #15 mL 05/08/21 [Rx Last Taken Unknown] metformin 500 mg tablet,extended release 24 hr 500 mg PO BID #180 tabs 05/08/21 [Rx Last Taken Unknown] flash glucose sensor (FreeStyle Mary Ann 14 Day Sensor kit) #2 ea 06/05/21 [Rx Last Taken Unknown] lovastatin 20 mg tablet 20 mg PO QHS cholesterol #90 tabs 10/06/21 [Rx Last Taken Unknown] insulin glargine 100 unit/mL (3 mL) subcutaneous pen (Lantus Solostar U-100 Ins ulin) 60 unit subcut BID 10/15/21 [History Last Taken 12/02/21 05:00] multivitamin 1 tab PO DAILY 10/22/21 [History Last Taken Unknown] potassium citrate 99 mg capsule 99 mg PO DAILY 10/22/21 [History Last Taken Unknown] levothyroxine 200 mcg tablet 200 mcg PO DAILY 10/29/21 [History Last Taken Unknown] levothyroxine 25 mcg capsule 25 mcg PO DAILY 10/29/21 [History Last Taken Unknown] dulaglutide 1.5 mg/0.5 mL subcutaneous pen injector (Trulicity) 1.5 mg subcut ESQUIVEL DM 12/01/21 [History Last Taken 11/30/21] losartan 100 mg-hydrochlorothiazide 12.5 mg tablet 1 tab PO DAILY HTN 12/01/21 [History Last Taken Unknown] magnesium oxide,aspartate,citr (Triple Magnesium Complex) 400 mg PO DAILY 12/01/21 [History Last Taken Unknown] omeprazole 20 mg capsule,delayed release 20 mg PO DAILY GERD 12/01/21 [History Last Taken Unknown] Allergy/AdvReac Type Severity Reaction Status Date / Time ciprofloxacin [From Cipro] Allergy Mild Rash Verified 12/02/21 08:11 ondansetron HCl Allergy Rash Verified 12/02/21 08:11 [From Zofran (as hydrochloride)] oxycodone HCl [From Percocet] Allergy Rash Verified 12/02/21 08:11 Penicillins [PCN] Allergy Other Verified 12/02/21 08:11 propoxyphene napsylate Allergy Rash Verified 12/02/21 08:11 [From Darvocet-N 100] shellfish derived Allergy Rash Verified 12/02/21 08:11 Family History Father Colon cancer Myocardial infarction Diabetes Hypertension Hyperlipemia Grandmother No problems noted. Mother Colon cancer Cancer Heart disease CVA (cerebral vascular accident) Diabetes Thyroid disorder Hypertension Myocardial infarction Hyperlipemia Brother Colon cancer Unknown Breast cancer 2 cousins Uncle Colon cancer Surgical History (Updated 12/01/21 @ 13:04 by Kylie Hall) H/O: hysterectomy History of cholecystectomy History of colonoscopy (~08/14/19) History of esophagogastroduodenoscopy (EGD) History of laparoscopy History of oral surgery S/P colonoscopy S/P hysterectomy S/P wrist surgery Status post laparoscopic cholecystectomy Stone, kidney Social History Smoking Status: Never smoker second hand exposure: No alcohol intake: current alcohol intake frequency: holidays/special occasions only substance use type: does not use caffeine: Yes what type of physical activity do you participate in: none frequency: does not exercise ROS Constitutional Constitutional: Reports systems reviewed and no addt'l complaints, except as documented Cardiovascular Cardiovascular: Denies chest pain Respiratory/Chest Respiratory/Chest: Denies shortness of breath at rest Gastrointestinal Gastrointestinal: Denies abdominal pain, change in bowel habits, hematochezia or melena Physical Exam Const alert, oriented x3 and no apparent distress General Appearance: cooperative and comfortable Eyes General Eye: normal appearance of both eyes Neck General: normal visual inspection Chest inspection of chest normal Resp Effort and Inspection: able to speak in complete sentences and symmetric chest movement Auscultation: clear to auscultation bilaterally Cardio regular rate and regular rhythm GI soft to palpation, non-tender and non-distended Extremity no calf tenderness Neuro oriented x3 Psych thought process normal Assessment & Plan Assessment/Plan (1) Family history of colon cancer in father: (2) History of colon polyps: PLAN: Plan The patient presents for open access today requesting a colonoscopy with possible biopsy or polypectomy as indicated. Previous exam August 14, 2019. Random biopsies obtained at that time per Dr. Colunga. Patient's had an opportunity to ask and have questions answered. We will proceed as noted. Todd Monge M.D., F.A.C.S.
--- NOTE | 2021-12-02 09:49 | OP.COLON_ITS ---
Patient Name: Mana Martínez Procedure Date: 12/02/2021 9:21 AM Date of : 1950 Age: 70 Procedure: Colonoscopy Indications: High risk colon cancer surveillance: Personal history of colonic polyps, Family history of colon cancer in a first-degree relative Providers: Todd Monge MD Medicines: See the Anesthesia note for documentation of the administered medications Patient Profile: Last Colonoscopy: within the past 3 years. Complications: No immediate complications. Procedure: Pre-Anesthesia Assessment: - Prior to the procedure, a History and Physical was performed, and patient medications and allergies were reviewed. The patient's tolerance of previous anesthesia was also reviewed. The risks and benefits of the procedure and the sedation options and risks were discussed with the patient. All questions were answered, and informed consent was obtained. Prior Anticoagulants: The patient has taken no previous anticoagulant or antiplatelet agents. ASA Grade Assessment: II - A patient with mild systemic disease. After reviewing the risks and benefits, the patient was deemed in satisfactory condition to undergo the procedure. After I obtained informed consent, the scope was passed under direct vision. Throughout the procedure, the patient's blood pressure, pulse, and oxygen saturations were monitored continuously. The colonoscope was introduced through the anus and advanced to the cecum, identified by appendiceal orifice and ileocecal valve. The colonoscopy was performed without difficulty. The patient tolerated the procedure well. The quality of the bowel preparation was adequate to identify polyps. The ileocecal valve and the appendiceal orifice were photographed. Scope In: 9:29:52 AM Scope Withdrawal Time 0 hours 9 minutes 19 seconds Scope Out: 9:44:26 AM Total Procedure Duration Time 0 hours 14 minutes 34 seconds Findings: Hemorrhoids were found on perianal exam. The colon (entire examined portion) appeared normal. Impression: - Hemorrhoids found on perianal exam. - The entire examined colon is normal. - No specimens collected. Recommendation: - Discharge patient to home. - Resume previous diet. - Continue present medications. - Repeat colonoscopy in 3 years for surveillance. Procedure Code(s): --- Professional --- 58415, Colonoscopy, flexible; diagnostic, including collection of specimen(s) by brushing or washing, when performed (separate procedure) CPT copyright 2017 [employer]. All rights reserved. The codes documented in this report are preliminary and upon assistant facility manager review may be revised to meet current compliance requirements. Todd Monge MD 12/02/2021 9:49:22 AM This report has been signed electronically. Number of Addenda: 0 Note Initiated On: 12/02/2021 9:21 AM
--- NOTE | 2021-12-02 09:49 | OP.CCLET_ITS ---
12/02/2021 Allison Gomez [facility] [address] [place] [address] Re : Colonoscopy procedure for Mana Martínez Dear Dr. Gomez This procedure was performed on Thursday, December 02, 2021. My impressions and recommendations are as follows: Impressions : - Hemorrhoids found on perianal exam. - The entire examined colon is normal. - No specimens collected. Recommendations : - Discharge patient to home. - Resume previous diet. - Continue present medications. - Repeat colonoscopy in 3 years for surveillance. My findings are described in the full procedure note, which is enclosed. If I can be of further assistance, please feel free to contact me at Doctor phone number(s): Work: . Sincerely, Todd Monge MD 12/02/2021 9:49:22 AM This report has been signed electronically.
[2021-12-02 09:50] VITALS: BP 134/68; BP 146/54; PULSE 70; RESP 16; TEMP 36.9; O2SAT 96
[2021-12-02 09:55] VITALS: BP 130/69; BP 146/54; PULSE 67; RESP 16; O2SAT 97
[2021-12-02 10:00] VITALS: BP 130/62; BP 146/54; PULSE 67; RESP 16; O2SAT 97
[2021-12-02 10:05] VITALS: BP 119/54; BP 146/54; PULSE 68; RESP 16; TEMP 36.9; O2SAT 100
[2021-12-02 10:15] LABS: Bedside Glucose 85 mg/dL (74-106)
[2021-12-02 10:17] VITALS: BP 146/54
== END 2021-12-02 10:38 | disposition home or self-care (01) ==
LOC: EN 07:52 → AC 07:53
PROVIDERS: PCP Internal Medicine; Referring Provider Internal Medicine; Visit Provider Surgery
PROC: 0DJD8ZZ Inspection of Lower Intestinal Tract, Via Natural or Artificial Opening Endoscopic (ICD-10-PCS; CPT 45378; principal; 2021-12-02 08:55)
DX: Z12.11 Encounter for screening for malignant neoplasm of colon (principal); E11.9 Type 2 diabetes mellitus without complications; Z79.4 Long term (current) use of insulin; Z80.0 Family history of malignant neoplasm of digestive organs; J45.909 Unspecified asthma, uncomplicated; K21.9 Gastro-esophageal reflux disease without esophagitis; Z87.19 Personal history of other diseases of the digestive system; I10 Essential (primary) hypertension; E78.5 Hyperlipidemia, unspecified; E05.90 Thyrotoxicosis, unspecified without thyrotoxic crisis or storm; G47.33 Obstructive sleep apnea (adult) (pediatric); Z87.442 Personal history of urinary calculi; G25.81 Restless legs syndrome; Z79.890 Hormone replacement therapy; Z90.49 Acquired absence of other specified parts of digestive tract; Z87.440 Personal history of urinary (tract) infections; Z86.010 Personal history of colon polyps
CPT/HCPCS: G0105; 82962; J7120; J2405

== ENCOUNTER 2022-02-02 10:48 | Outpatient (CLI) | payer MEDICARE, SELFPAY ==
[2022-02-02 11:55] LABS: Free T3 2.2 pg/mL (2.18-3.98); T4 Free Direct 1.72 ng/dL (0.76-1.46); Thyroid Stim Hormone (TSH) 0.02 uIU/mL (0.358-3.74)
== END 2022-02-02 23:59 | disposition home or self-care (01) ==
LOC: LAB 10:50
PROVIDERS: PCP Internal Medicine; Visit Provider Internal Medicine
DX: E03.9 Hypothyroidism, unspecified (principal)
CPT/HCPCS: 36415; 84439; 84443; 84481

== ENCOUNTER → 2022-04-06 | Outpatient (CLI) | payer MEDICARE, SELFPAY ==
[2022-04-06 13:09] LABS: Free T3 2.1 pg/mL (2.18-3.98); T4 Free Direct 1.54 ng/dL (0.76-1.46); Thyroid Stim Hormone (TSH) 0.07 uIU/mL (0.358-3.74)
--- NOTE | 2022-04-06 14:52 | STRESSREP ---
Stress Test Report Pharmacologic myocardial perfusion stress test. 71-year-old lady with a history of chest pain Resting EKG demonstrates sinus rhythm with a rate of 67 bpm. Resting blood pressure is 138/70 mmHg. 0.4 mg of regadenoson was infused per usual protocol followed by rapid intravenous saline flush injection. Continuous EKG monitoring was performed. The maximum heart rate was 90 bpm which was 59% of max impacted heart rate the maximum workload was 1 metabolic equivalent. At rest there were no ST or T wave changes noted to suggest ischemia and at peak infusion nonspecific ST changes were noted which did not meet the criteria for ischemia. No clinical angina is noted. The final blood pressure was 112/64 mmHg. Myocardial perfusion protocol. 14.4 mCi of technetium 99m sestamibi was injected at rest. 0.4 mg of regadenoson was infused per usual protocol. At peak infusion 44.1 mCi of technetium 99m sestamibi was injected stress images were obtained stress and rest images were reconstructed and compared in the short axis vertical long and horizontal long axis. Gated images were also obtained. Perfusion SPECT analysis: Review of the stress images demonstrate normal uptake of tracer noted in all areas of the myocardium. The resting images similar demonstrated normal uptake of tracer noted in all areas of the myocardium. No areas of reversibility are noted to suggest ischemia and no previous infarct is noted. Gated SPECT analysis: The gated ejection fraction is 68%. Conclusion: Normal pharmacologic myocardial perfusion stress test. Preserved ejection fraction.
== END | disposition home or self-care (01) ==
PROVIDERS: PCP Internal Medicine; Referring Provider Internal Medicine; Visit Provider Internal Medicine
DX: Z01.818 Encounter for other preprocedural examination (principal); E11.9 Type 2 diabetes mellitus without complications; I10 Essential (primary) hypertension; R07.89 Other chest pain; E03.9 Hypothyroidism, unspecified
CPT/HCPCS: 36415; 78452; 84439; 84443; 84481; 93017; A9500; A4216; J2785

== ENCOUNTER → 2022-05-04 | Outpatient (CLI) | payer MEDICARE, SELFPAY ==
[2022-05-04 12:15] LABS: Absolute Lymphocyte Count 2.47 X10^3/uL (0.83-4.51); Absolute Neutrophil Count 6.2 X10^3/uL (2.0-7.7); Basophil# 0.05 X10^3/uL; Basophil% 0.5 % (0-1); Eosinophil# 0.22 X10^3/uL; Eosinophils% 2.3 % (0-5); Hematocrit 41.9 % (37-47); Hemoglobin 12.6 g/dL (12.0-15.0); Lymphocyte # 2.47 X10^3/ul (0.83-4.51); Lymphocyte % 25.3 % (19-41); Mean Corp Hgb Conc 30.1 g/dL (32-36); Mean Corpuscular Hgb 25.7 pg (27.0-32.0); Mean Corpuscular Volume 85.3 fL (81-99); Mean Platelet Vol. 10.3 fl (6.2-12.0); Monocyte# 0.82 X10^3/uL; Monocyte% 8.4 % (0-10); NRBC Flagged by Analyzer 0 % (0-5); Neutrophil # 6.16 X10^3/uL (2.7-7.7); Platelet Count 280 K/mm3 (150-450); RBC Distribution Width CV 14.2 % (11.6-14.6); RBC Distribution Width SD 43.9 fl (35.1-43.9); Red Blood Count 4.91 M/mm3 (4.2-5.4); White Blood Count 9.8 K/mm3 (4.4-11.0)
[2022-05-04 12:38] LABS: Vitamin D,25 Hydroxy 21.3 ng/mL
[2022-05-04 12:46] LABS: Hemoglobin A1c 8.9 % (3.8-5.6)
[2022-05-04 12:47] LABS: ALB/GLOB Ratio 0.8 RATIO (0.9-2.4); AST(SGOT) 26 U/L (15-37); Alanine Aminotransfer ALT/SGPT 33 U/L (13-56); Albumin, Serum 3.2 g/dL (3.2-5.0); Alkaline Phosphatase 84 U/L (45-117); Anion Gap 4 (5-15); BUN 18 mg/dL (7-18); BUN/Creat Ratio 14.3 RATIO (10-20); Calcium,Total 8.9 mg/dL (8.5-10.1); Chloride 107 mmol/L (98-107); Cholesterol 143 mg/dL (200); Creatinine, Serum 1.26 mg/dL (0.55-1.02); EST Glomerular Filtration Rate 45 mL/min (>60); Est Glom Filt Rate - Afr Amer 54 mL/min (>60); Globulin 4.1 g/dL (2.2-4.2); Glucose 153 mg/dL (74-106); High Density Lipoprotein 47 mg/dL; Potassium 4.3 mmol/L (3.5-5.1); Protein, Total 7.3 g/dL (6.4-8.2); Sodium Level 140 mmol/L (136-145); T4 Free Direct 1.56 ng/dL (0.76-1.46); Thyroid Stim Hormone (TSH) 0.13 uIU/mL (0.358-3.74); Triglycerides 87 mg/dL; Very Low Density Lipoprotein 17 mg/dL (5-40)
== END | disposition home or self-care (01) ==
LOC: LAB 11:33
PROVIDERS: PCP Internal Medicine; Referring Provider Internal Medicine; Visit Provider Internal Medicine
DX: I10 Essential (primary) hypertension (principal); E66.01 Morbid (severe) obesity due to excess calories; Z68.42 Body mass index [BMI] 45.0-49.9, adult; E11.9 Type 2 diabetes mellitus without complications; E78.5 Hyperlipidemia, unspecified; E03.9 Hypothyroidism, unspecified; E55.9 Vitamin D deficiency, unspecified
CPT/HCPCS: 36415; 80053; 80061; 82306; 83036; 84439; 84443; 84481; 85025

== ENCOUNTER → 2022-05-05 | Outpatient (CLI) | payer MEDICARE, SELFPAY ==
--- NOTE | 2022-05-05 09:13 | EKG12_ITS ---
Test Reason : PREOP Blood Pressure : / mmHG Vent. Rate : 061 BPM Atrial Rate : 061 BPM P-R Int : 222 ms QRS Dur : 092 ms QT Int : 448 ms P-R-T Axes : 085 -06 065 degrees QTc Int : 450 ms Sinus rhythm with 1st degree A-V block Low voltage QRS Borderline ECG Confirmed by LANA COLLINS, MARK ([id number]), newspaper managing editor GRAHAM PALM ([id number]) on 05/06/2022 8:57:17 AM Referred By: Allison Gomez Confirmed By:MARK SCHWARTZ MD
== END | disposition home or self-care (01) ==
LOC: PSN 09:12
PROVIDERS: PCP Internal Medicine; Referring Provider Internal Medicine; Visit Provider Internal Medicine
DX: Z01.818 Encounter for other preprocedural examination (principal); E66.01 Morbid (severe) obesity due to excess calories; E11.9 Type 2 diabetes mellitus without complications; E78.5 Hyperlipidemia, unspecified
CPT/HCPCS: 93005

== ENCOUNTER 2022-05-30 16:03 | Emergency (ER) | payer MEDICARE, SELFPAY ==
[2022-05-30 16:05] VITALS: BP 148/65; PULSE 72; RESP 14; TEMP 37.1; O2SAT 97
--- NOTE | 2022-05-30 16:38 | ED.VIS.LOWEX ---
HPI History of Present Illness Chief Complaint: Lower Extremity Injury Narrative Narrative: 62 old female presenting with left calf pain after total knee replacement on Wednesday. She states that she was sent by her surgeon from [facility] to go to urgent care. Her daughter is with her and states she knew that there was an boiler/chiller technician there and she brought her to the emergency room. Patient is complaining of left lateral calf pain. She had a total knee replacement Wednesday. Her knee does not look erythematous or warm to her. She can walk on it but it does hurt. Her surgeon for concern was for DVT. She has not had any chest pain or shortness of breath. [facility] Medical History Alcohol use Arthritis Asthma BiPAP (biphasic positive airway pressure) dependence Cancer Chronic cough Diabetes Diarrhea Dietary restriction Easy bruising GERD (gastroesophageal reflux disease) Hemorrhoids History of colon polyps History of diverticulitis History of echocardiogram History of edema History of stress test HTN (hypertension) Hyperlipidemia Hyperthyroidism Kidney disease Leg cramps Low back pain Non-smoker ANISHA (obstructive sleep apnea) Pyelonephritis Restless legs Shortness of breath on exertion Shoulder pain Wears dentures Wears glasses Home Medications dulaglutide 1.5 mg/0.5 mL subcutaneous pen injector (Trulicity) 1.5 mg (0.5 mL) subcut ESQUIVEL DM 90 days #6.5 mL 02/16/22 [Rx Last Taken Unknown] flash glucose sensor (FreeStyle Mary Ann 14 Day Sensor kit) #2 ea 02/16/22 [Rx Last Taken Unknown] levothyroxine 200 mcg tablet 200 mcg PO DAILY #90 tabs 02/16/22 [Rx Last Taken Unknown] losartan 100 mg-hydrochlorothiazide 12.5 mg tablet 1 tab PO DAILY HTN #90 tabs 02/16/22 [Rx Last Taken Unknown] lovastatin 20 mg tablet 20 mg PO QHS cholesterol #90 tabs 02/16/22 [Rx Last Taken Unknown] magnesium oxide,aspartate,citr (Triple Magnesium Complex) 400 mg PO DAILY #90 caps 02/16/22 [Rx Last Taken Unknown] metformin 500 mg tablet,extended release 24 hr 500 mg PO BID #180 tabs 02/16/22 [Rx Last Taken Unknown] multivitamin 1 tab PO DAILY #90 tabs 02/16/22 [Rx Last Taken Unknown] omeprazole 20 mg capsule,delayed release 20 mg PO DAILY GERD #90 caps 02/16/22 [Rx Last Taken Unknown] potassium citrate 99 mg capsule 99 mg PO DAILY #90 caps 02/16/22 [Rx Last Taken Unknown] insulin aspart U-100 100 unit/mL (3 mL) subcutaneous pen (Novolog FlexPen U-100 Insulin aspart) 25 unit (0.25 mL) subcut TID 90 days #67.5 mL 05/04/22 [Rx Last Taken Unknown] insulin glargine 100 unit/mL (3 mL) subcutaneous pen (Lantus Solostar U-100 Insulin) 60 unit (0.6 mL) subcut BID 90 days #108 mL 05/04/22 [Rx Last Taken Unknown] Allergy/AdvReac Type Severity Reaction Status Date / Time ciprofloxacin [From Cipro] Allergy Mild Rash Verified 05/30/22 16:05 ondansetron HCl Allergy Rash Verified 05/30/22 16:05 [From Zofran (as hydrochloride)] oxycodone HCl [From Percocet] Allergy Rash Verified 05/30/22 16:05 Penicillins [PCN] Allergy Other Verified 05/30/22 16:05 propoxyphene napsylate Allergy Rash Verified 05/30/22 16:05 [From Darvocet-N 100] shellfish derived Allergy Rash Verified 05/30/22 16:05 Family History Father Colon cancer Myocardial infarction Diabetes Hypertension Hyperlipemia Grandmother No problems noted. Mother Colon cancer Cancer Heart disease CVA (cerebral vascular accident) Diabetes Thyroid disorder Hypertension Myocardial infarction Hyperlipemia Brother Colon cancer Unknown Breast cancer 2 cousins Uncle Colon cancer Surgical History H/O: hysterectomy History of cholecystectomy History of colonoscopy (~08/14/19) History of esophagogastroduodenoscopy (EGD) History of laparoscopy History of oral surgery S/P colonoscopy S/P hysterectomy S/P wrist surgery Status post laparoscopic cholecystectomy Stone, kidney Social History Smoking Status: Never smoker second hand exposure: No alcohol intake: current alcohol intake frequency: holidays/special occasions only substance use type: does not use caffeine: Yes what type of physical activity do you participate in: none frequency: does not exercise ROS ROS ED Constitutional Constitutional ED: Denies chills or fever(s) Eyes Eyes: Denies change in vision or diplopia ENT ENT ED: Denies rhinorrhea or sore throat Cardiovascular Cardiovascular: Denies chest pain or palpitations Respiratory/Chest Respiratory/Chest: Denies cough or dyspnea Gastrointestinal Gastrointestinal: Denies abdominal pain or constipation Genitourinary Genitourinary ED: Denies dysuria or hematuria Musculoskeletal Musculoskeletal: Reports other Details: Left calf pain ; Denies arthralgias or back pain Integumentary Denies abscess Neurologic Neurologic: Denies headache(s) EXAM Physical Exam Const Vital Signs: 05/30/22 16:05 Temperature 98.7 F Temperature Source Temporal Pulse Rate 72 Respiratory Rate 14 Blood Pressure 148/65 H Blood Pressure Mean 92 Pulse Ox 97 Oxygen Delivery Method Room Air Positive well nourished General Appearance ED: NAD HEENT Reports moist mucous membranes normocephalic and atraumatic Eyes PERRL Resp normal respiratory effort and no retractions Cardio regular rate and regular rhythm Extremity Extremity Narrative: Left knee has a Silverlon dressing midline. Clean dry and intact. No erythema, induration, crepitance. She is tender in the left calf fairly diffusely. No cords palpated. There are some lower extremity edema which is pitting. Neuro oriented x3 Sensorium / Orientation: alert Psych mental status grossly normal Skin no wounds MDM MDM MDM Narrative Medical decision making narrative: Patient presenting with left calf pain status post total knee replacement on Wednesday. She was sent for ultrasound however we do not have one available today. Her exam does show some lower extremity edema which is consistent with a postoperative total knee replacement. No feeling cords. She does not have any chest pain or shortness of breath. We discussed an outpatient ultrasound which can be scheduled for tomorrow and she is amenable to this. We will hold blood thinners for now. She was counseled at length that if she has any chest pain or shortness of breath she should return immediately. Impression: 1. Postop wound check 2. Left calf pain Discharge Plan Triage Chief Complaint: Lower Extremity Injury ED Provider: Darren Calle Dx/Rx/DC Orders Instructions: ED Post Op Wound Check, Pain Prescriptions: No Action Trulicity 1.5 mg/0.5 mL pen injector 1.5 mg subcut ESQUIVEL 90 Days Qty: 6.5 3RF levothyroxine 200 mcg tablet 200 mcg PO DAILY Qty: 90 3RF Rx Instructions: take with 25mcg to equal 225mcg daily losartan-hydrochlorothiazide 100-12.5 mg tablet 1 tab PO DAILY Qty: 90 3RF lovastatin 20 mg tablet 20 mg PO QHS Qty: 90 3RF Triple Magnesium Complex 400 mg magnesium capsule 400 mg PO DAILY Qty: 90 3RF metformin 500 mg tablet extended release 24 hr 500 mg PO BID Qty: 180 3RF multivitamin Tablet 1 tab PO DAILY Qty: 90 3RF omeprazole 20 mg capsule,delayed release(DR/EC) 20 mg PO DAILY Qty: 90 3RF potassium citrate 99 mg capsule 99 mg PO DAILY Qty: 90 3RF (DME) FreeStyle Mary Ann 14 Day Sensor Kit See Rx Instructions .ROUTE .MEDSUPPLY Qty: 2 3RF Rx Instructions: As directed insulin aspart U-100 [Novolog FlexPen U-100 Insulin] 100 unit/mL (3 mL) insulin pen 25 unit subcut TID 90 Days Qty: 67.5 5RF Lantus Solostar U-100 Insulin 100 unit/mL (3 mL) insulin pen 60 unit subcut BID 90 Days Qty: 108 5RF Other Ambulatory Orders: Venous Duplex US, Unilateral (Stat) Facility: [facility] - Location: [facility] Ordered By: Dr. Darren Calle Primary Care Provider: Allison Gomez Referrals: Allison Gomez MD [Primary Care Provider] - Disposition Disposition: Home, Self Care
== END 2022-05-30 16:42 | disposition home or self-care (01) ==
PROVIDERS: Emergency Provider Student in an Organized Health Care Education/Training Program; PCP Internal Medicine; Visit Provider Student in an Organized Health Care Education/Training Program
DX: M79.662 Pain in left lower leg (principal); E11.9 Type 2 diabetes mellitus without complications; Z79.4 Long term (current) use of insulin; E78.5 Hyperlipidemia, unspecified; I10 Essential (primary) hypertension; Z96.659 Presence of unspecified artificial knee joint; Z79.899 Other long term (current) drug therapy; K21.9 Gastro-esophageal reflux disease without esophagitis; X58.XXXA Exposure to other specified factors, initial encounter
CPT/HCPCS: 99282

== ENCOUNTER → 2022-05-31 | Outpatient (CLI) | payer MEDICARE, SELFPAY ==
--- NOTE | 2022-05-31 10:18 | VDLE_ITS ---
Reason For Study: pain Procedure LEFT This is a venous duplex using B-mode, color GSV is normal. flow and spectral Doppler. CFV is compressible, spontaneous, phasic, Exam performed in department. competent, and demonstrates normal The exam was abbreviated due to the COVID 19 augmentation. protocol. FV is compressible, spontaneous, phasic, The exam was diagnostic. competent and demonstrates normal Difficult study due to pt body habitus. augmentation. POP V is compressible, spontaneous, phasic, competent and demonstrates normal augmentation. T/P Trunk is compressible. PTV is compressible. LT PerV is compressible. VL/Venous Duplex US, Unilateral Interpretation Summary There is no evidence of left lower extremity deep vein thrombosis. Left great s aphenous vein appears patent and compressible segmentally. Abbreviated COVID-19 protocol utilized The exam was noted to be technically difficult secondary to body habitus Ordering Physician: Darren Calle Referring Physician: Allison Gomez M.D. Performed By: Darius Prajapati RVT
== END | disposition home or self-care (01) ==
LOC: VL 10:18
PROVIDERS: PCP Internal Medicine; Referring Provider Student in an Organized Health Care Education/Training Program; Visit Provider Student in an Organized Health Care Education/Training Program
DX: M79.662 Pain in left lower leg (principal)
CPT/HCPCS: 93971

== ENCOUNTER 2022-06-03 04:28 | Emergency (ER) | payer MEDICARE, SELFPAY ==
[2022-06-03 04:29] VITALS: BP 153/64; PULSE 65; RESP 18; TEMP 36.2; O2SAT 96; BMI 46.3
--- NOTE | 2022-06-03 04:39 | ED.VIS.LOWEX ---
HPI History of Present Illness Chief Complaint: Lower Extremity Injury Informant: patient Narrative Narrative: Patient had a left knee replacement about 1 week ago at [facility]. It has been painful. She has been recovering at home with the assistance of oxycodone. She had new calf pain 2-3 days ago and was seen here in the ED and had a ultrasound of her left lower extremity that was negative for DVT. This morning, she fell asleep in her recliner with her ice machine on her left knee and then woke up in the middle of the night and wanted to go to bed which is maybe 20 or 30 feet from the recliner. She was able to use her walker and had some assistance from family to get to the bed, she got in the bed reattach the ice machine and was okay, and then a short time after she got into bed, she started having increasing pain in the entire left lower extremity that did not improve with taking an oral oxycodone. Her daughter states she could not get her to put any weight on it which is what led her to call EMS, although she then notes that upon their arrival she was able to put some weight on it to transfer to the EMS cot. She states it hurts from her buttock into her thigh as well as the calf and the knee. Denies back pain. Denies justin numbness in her foot. Denies weakness. Denies chest pain or shortness of breath or fevers or chills or discharge from her incision or changes in the appearance of her leg at this time. [facility] Medical History Alcohol use Arthritis Asthma BiPAP (biphasic positive airway pressure) dependence Cancer Chronic cough Diabetes Diarrhea Dietary restriction Easy bruising GERD (gastroesophageal reflux disease) Hemorrhoids History of colon polyps History of diverticulitis History of echocardiogram History of edema History of stress test HTN (hypertension) Hyperlipidemia Hyperthyroidism Kidney disease Leg cramps Low back pain Non-smoker ANISHA (obstructive sleep apnea) Pyelonephritis Restless legs Shortness of breath on exertion Shoulder pain Wears dentures Wears glasses Home Medications dulaglutide 1.5 mg/0.5 mL subcutaneous pen injector (Trulicity) 1.5 mg (0.5 mL) subcut ESQUIVEL DM 90 days #6.5 mL 02/16/22 [Rx Last Taken Unknown] flash glucose sensor (FreeStyle Mary Ann 14 Day Sensor kit) #2 ea 02/16/22 [Rx Last Taken Unknown] levothyroxine 200 mcg tablet 200 mcg PO DAILY #90 tabs 02/16/22 [Rx Last Taken Unknown] losartan 100 mg-hydrochlorothiazide 12.5 mg tablet 1 tab PO DAILY HTN #90 tabs 02/16/22 [Rx Last Taken Unknown] lovastatin 20 mg tablet 20 mg PO QHS cholesterol #90 tabs 02/16/22 [Rx Last Taken Unknown] magnesium oxide,aspartate,citr (Triple Magnesium Complex) 400 mg PO DAILY #90 caps 02/16/22 [Rx Last Taken Unknown] metformin 500 mg tablet,extended release 24 hr 500 mg PO BID #180 tabs 02/16/22 [Rx Last Taken Unknown] multivitamin 1 tab PO DAILY #90 tabs 02/16/22 [Rx Last Taken Unknown] omeprazole 20 mg capsule,delayed release 20 mg PO DAILY GERD #90 caps 02/16/22 [Rx Last Taken Unknown] potassium citrate 99 mg capsule 99 mg PO DAILY #90 caps 02/16/22 [Rx Last Taken Unknown] insulin aspart U-100 100 unit/mL (3 mL) subcutaneous pen (Novolog FlexPen U-100 Insulin aspart) 25 unit (0.25 mL) subcut TID 90 days #67.5 mL 05/04/22 [Rx Last Taken Unknown] insulin glargine 100 unit/mL (3 mL) subcutaneous pen (Lantus Solostar U-100 Insulin) 60 unit (0.6 mL) subcut BID 90 days #108 mL 05/04/22 [Rx Last Taken Unknown] aspirin 81 mg tablet,delayed release 81 mg PO BID 06/03/22 [History Last Taken Unknown] cyanocobalamin (vitamin B-12) 1 tab PO DAILY 06/03/22 [History Last Taken Unknown] docusate sodium 100 mg capsule 100 mg PO BID 06/03/22 [History Last Taken Unknown] magnesium gluconate 12.5 mg magnesium (250 mg) tablet 250 mg PO DAILY 06/03/22 [History Last Taken Unknown] oxycodone-acetaminophen 5 mg-325 mg tablet 1 tab PO BID PRN Pain 06/03/22 [History Last Taken Unknown] Allergy/AdvReac Type Severity Reaction Status Date / Time ciprofloxacin [From Cipro] Allergy Mild Rash Verified 06/03/22 04:37 ondansetron HCl Allergy Rash Verified 06/03/22 04:37 [From Zofran (as hydrochloride)] oxycodone HCl [From Percocet] Allergy Rash Verified 06/03/22 04:37 Penicillins [PCN] Allergy Other Verified 06/03/22 04:37 propoxyphene napsylate Allergy Rash Verified 06/03/22 04:37 [From Darvocet-N 100] shellfish derived Allergy Rash Verified 06/03/22 04:37 Family History Father Colon cancer Myocardial infarction Diabetes Hypertension Hyperlipemia Grandmother No problems noted. Mother Colon cancer Cancer Heart disease CVA (cerebral vascular accident) Diabetes Thyroid disorder Hypertension Myocardial infarction Hyperlipemia Brother Colon cancer Unknown Breast cancer 2 cousins Uncle Colon cancer Surgical History H/O: hysterectomy History of cholecystectomy History of colonoscopy (~08/14/19) History of esophagogastroduodenoscopy (EGD) History of laparoscopy History of oral surgery S/P colonoscopy S/P hysterectomy S/P wrist surgery Status post laparoscopic cholecystectomy Stone, kidney Social History Smoking Status: Never smoker second hand exposure: No alcohol intake: current alcohol intake frequency: holidays/special occasions only substance use type: does not use caffeine: Yes what type of physical activity do you participate in: none frequency: does not exercise ROS ROS ED Constitutional Constitutional ED: Denies chills or fever(s) Cardiovascular Cardiovascular: Denies chest pain or palpitations Respiratory/Chest Respiratory/Chest: Denies dyspnea or dyspnea on exertion Gastrointestinal Gastrointestinal: Reports nausea; Denies abdominal pain, diarrhea or vomiting Musculoskeletal Musculoskeletal: Reports extremity pain; Denies back pain or neck pain Integumentary Denies Abrasions, rash or wounds Neurologic Neurologic: Denies paresthesias or weakness EXAM Physical Exam Const Vital Signs: 06/03/22 04:29 06/03/22 05:51 06/03/22 06:27 Temperature 97.1 F L Temperature Source Temporal Pulse Rate 65 75 66 Respiratory Rate 18 15 15 Blood Pressure 153/64 H 128/47 H 142/58 H Blood Pressure Mean 93 74 Pulse Ox 96 93 99 Oxygen Delivery Method Room Air Room Air Positive well nourished and well developed General Appearance ED: well developed and NAD Neck full ROM and supple Resp normal respiratory effort GI non-tender and non-distended Inspection: Negative for abdominal distention Auscultation: normoactive bowel sounds Back/Spine normal ROM and normal to inspection Back/Spine Narrative: No spinal tenderness. No significant tenderness in the sciatic notch. Limited ability to do straight leg raises due to pain with fully extending/locking the left knee. Extremity Extremity Narrative: Left lower extremity: Brisk cap refill all toes, 2+/4 dorsalis pedis pulse, painless passive logroll of the left hip, limited range of motion of the knee due to pain, but able to perform short arc range of motion without difficulty. Dorsiflexion and plantarflexion of the ankle without difficulty or significant discomfort. There is what appears to be dependent postoperative ecchymosis distal to the knee in the proximal razo. There is mild calf tenderness, mild tenderness in the distal half of the thigh anteriorly and laterally, all compartments are soft and nondistended. There is no popliteal tenderness or tenderness around the anterior knee incision which appears benign without dehiscence, discharge, signs of infection. Neuro oriented x3, no focal motor deficits and no sensory deficits noted Sensorium / Orientation: alert Psych mental status grossly normal and thought process normal Skin Skin Narrative: Healing left knee anterior operative wounds see above Rashes: no rashes MDM MDM MDM Narrative Medical decision making narrative: I think this is much less likely venous thrombosis-related pain. The daughter states that she has been drinking fluids but not very well due to her pain, which tends to cause her to get nauseated. I suggested this may all be muscular pain, in addition to spasm, they both agree. Since the patient has an allergy to Zofran, and this hospital will not allow IV promethazine to be given, I had nursing place an IV so that we could give her IV Reglan and morphine, and I added IV fluids to that as well. On reevaluation patient is doing much better. Reassured, I do not think she needs any other testing or x-rays given the history. They are both in agreement. Patient discharged home after we verified she can bear weight and do what she was doing postoperatively prior to the increase in her pain. History & Record Review Discussion w/independent historian: EMS personnel, Patient and Family (Daughter) Discharge Plan Triage Chief Complaint: Lower Extremity Injury ED Provider: Juan Pablo Sauceda Dx/Rx/DC Orders Clinical Impression: Acute postoperative pain of left knee Instructions: Managing Post-Op Pain at Home Prescriptions: No Action oxycodone-acetaminophen 5-325 mg Tablet 1 tab PO BID PRN (Reason: Pain) aspirin [Aspir-81] 81 mg Tablet,Delayed Release (Dr/Ec) 81 mg PO BID docusate sodium 100 mg Capsule 100 mg PO BID cyanocobalamin (vitamin B-12) Tablet,Chewable 1 tab PO DAILY magnesium gluconate 12.5 mg magne- sium (250 mg) Tablet 250 mg PO DAILY Trulicity 1.5 mg/0.5 mL pen injector 1.5 mg subcut ESQUIVEL 90 Days Qty: 6.5 3RF Rx Instructions: every wednesday levothyroxine 200 mcg tablet 200 mcg PO DAILY Qty: 90 3RF Rx Instructions: take with 25mcg to equal 225mcg daily losartan-hydrochlorothiazide 100-12.5 mg tablet 1 tab PO DAILY Qty: 90 3RF lovastatin 20 mg tablet 20 mg PO QHS Qty: 90 3RF Triple Magnesium Complex 400 mg magnesium capsule 400 mg PO DAILY Qty: 90 3RF metformin 500 mg tablet extended release 24 hr 500 mg PO BID Qty: 180 3RF multivitamin Tablet 1 tab PO DAILY Qty: 90 3RF omeprazole 20 mg capsule,delayed release(DR/EC) 20 mg PO DAILY Qty: 90 3RF potassium citrate 99 mg capsule 99 mg PO DAILY Qty: 90 3RF (DME) FreeStyle Mary Ann 14 Day Sensor Kit See Rx Instructions .ROUTE .MEDSUPPLY Qty: 2 3RF Rx Instructions: As directed insulin aspart U-100 [Novolog FlexPen U-100 Insulin] 100 unit/mL (3 mL) insulin pen 25 unit subcut TID 90 Days Qty: 67.5 5RF Lantus Solostar U-100 Insulin 100 unit/mL (3 mL) insulin pen 60 unit subcut BID 90 Days Qty: 108 5RF Primary Care Provider: Allison Gomez Referrals: Surgeon, your orthopedic [Other] - 3-5 Days if not improving (Or as scheduled, if within the next week) Disposition Disposition: Home, Self Care
[2022-06-03] MEDS: Metoclopramide 10 MG/2 ML Vial 5 MG IV (04:59)
[2022-06-03] MEDS: Morphine 4 MG/ML Syringe IV (05:00)
[2022-06-03] MEDS: 0.9% Normal Saline 1,000 ML 999 ML IV (05:02)
[2022-06-03 05:51] VITALS: BP 128/47; PULSE 75; RESP 15; O2SAT 93
[2022-06-03 06:27] VITALS: BP 142/58; PULSE 66; RESP 15; O2SAT 99
== END 2022-06-03 06:58 | disposition home or self-care (01) ==
PROVIDERS: Emergency Provider Emergency Medicine; PCP Internal Medicine; Visit Provider Emergency Medicine
DX: M25.562 Pain in left knee (principal); E11.9 Type 2 diabetes mellitus without complications; Z79.4 Long term (current) use of insulin; I10 Essential (primary) hypertension; E78.5 Hyperlipidemia, unspecified; Z79.899 Other long term (current) drug therapy; Z79.84 Long term (current) use of oral hypoglycemic drugs; K21.9 Gastro-esophageal reflux disease without esophagitis; Z79.82 Long term (current) use of aspirin; Z96.652 Presence of left artificial knee joint
CPT/HCPCS: 96374; 96375; 99284; J7030; A4216

== ENCOUNTER → 2022-06-24 | Outpatient (CLI) | payer MEDICARE, SELFPAY ==
[2022-06-24 11:10] LABS: Mucous, Urine 0 SEEN /hpf (<or=2+)
[2022-06-24 11:28] LABS: Color, Urine Yellow (Yellow); Glucose, Dipstick 100 mg/dl (Normal); Ketone-Dipstick 5 mg/dl (Negative); Leukocyte Esterase-Dipstick 500 /ul (Negative); Nitrite-Dipstick Positive (Negative); Occult Blood-Urine 10 /ul (Negative); Protein-Dipstick 30 mg/dl (Negative); Urine Bilirubin Dipstick Negative (Negative); Urine Clarity Sl. Cloudy (Clear); Urine Urobilinogen Normal (Normal)
[2022-06-24 11:42] LABS: Bacteria 2+ /hpf (None Seen); Red Blood Cells-Urine 0-5 SEEN /hpf (0-5); Squamous Epithelial Cells - UA 0-5 SEEN /hpf (5-10); White Blood Cells 25-50 SEEN /hpf (0-5)
== END | disposition home or self-care (01) ==
LOC: LAB 11:08
PROVIDERS: PCP Internal Medicine; Referring Provider Internal Medicine Endocrinology, Diabetes & Metabolism; Visit Provider Internal Medicine Endocrinology, Diabetes & Metabolism
DX: R39.15 Urgency of urination (principal); N28.9 Disorder of kidney and ureter, unspecified
CPT/HCPCS: 81001; 87086; 87088

== ENCOUNTER 2022-08-09 18:25 | Emergency (ER) | payer MEDICARE, SELFPAY ==
[2022-08-09 18:26] VITALS: BP 138/63; PULSE 71; RESP 16; TEMP 36.5; O2SAT 99
--- NOTE | 2022-08-09 18:43 | EDS_ITS ---
HPI History of Present Illness Chief Complaint: Bite Narrative Narrative: Patient was bit by her daughter's pitbull mix on her left great toe prior to arrival. She thinks the dog got her paw stuck in the deck because it started freaking out and then bit her shoe because her foot was close by. It ripped part of her great toenail up she had some bleeding. She denies weakness numbness or tingling. She is insulin-dependent diabetic. [facility] Medical History (Updated 08/09/22 @ 19:45 by RENETTA Santamaria) Alcohol use Arthritis Asthma BiPAP (biphasic positive airway pressure) dependence Cancer Chronic cough Diabetes Diarrhea Dietary restriction Easy bruising GERD (gastroesophageal reflux disease) Hemorrhoids History of colon polyps History of diverticulitis History of echocardiogram History of edema History of stress test HTN (hypertension) Hyperlipidemia Kidney disease Leg cramps Low back pain Non-smoker Obesity ANISHA (obstructive sleep apnea) Pyelonephritis Restless legs Shortness of breath on exertion Shoulder pain Urinary urgency Wears dentures Wears glasses Home Medications losartan 100 mg-hydrochlorothiazide 12.5 mg tablet 1 tab PO DAILY HTN #90 tabs 02/16/22 [Rx Last Taken Unknown] lovastatin 20 mg tablet 20 mg PO QHS cholesterol #90 tabs 02/16/22 [Rx Last Taken Unknown] metformin 500 mg tablet,extended release 24 hr 500 mg PO BID #180 tabs 02/16/22 [Rx Last Taken Unknown] multivitamin 1 tab PO DAILY #90 tabs 02/16/22 [Rx Last Taken Unknown] omeprazole 20 mg capsule,delayed release 20 mg PO DAILY GERD #90 caps 02/16/22 [Rx Last Taken Unknown] potassium citrate 99 mg capsule 99 mg PO DAILY #90 caps 02/16/22 [Rx Last Taken Unknown] insulin aspart U-100 100 unit/mL (3 mL) subcutaneous pen (Novolog FlexPen U-100 Insulin aspart) 25 unit (0.25 mL) subcut TID 90 days #67.5 mL 05/04/22 [Rx Last Taken Unknown] insulin glargine 100 unit/mL (3 mL) subcutaneous pen (Lantus Solostar U-100 Insulin) 60 unit (0.6 mL) subcut BID 90 days #108 mL 05/04/22 [Rx Last Taken Unknown] aspirin 81 mg tablet,delayed release 81 mg PO BID 06/03/22 [History Last Taken Unknown] cyanocobalamin (vitamin B-12) 1 tab PO DAILY 06/03/22 [History Last Taken Unknown] docusate sodium 100 mg capsule 100 mg PO BID 06/03/22 [History Last Taken Unknown] magnesium gluconate 12.5 mg magnesium (250 mg) tablet 250 mg PO DAILY 06/03/22 [History Last Taken Unknown] oxycodone-acetaminophen 5 mg-325 mg tablet 1 tab PO BID PRN Pain 06/03/22 [History Last Taken Unknown] flash glucose sensor (FreeStyle Mary Ann 14 Day Sensor kit) #2 ea 06/22/22 [Rx Last Taken Unknown] Farxiga 10 mg tablet (dapagliflozin) 10 mg PO DAILY #30 tabs 06/24/22 [Rx Last Taken Unknown] Trulicity 3 mg/0.5 mL subcutaneous pen injector (dulaglutide) 3 mg (0.5 mL) subcut QWEEK #2 mL 06/24/22 [Rx Last Taken Unknown] blood-glucose sensor (Fare Motion G7 Sensor device) #3 ea 06/24/22 [Rx Last Taken Unknown] nitrofurantoin monohydrate/macrocrystals 100 mg capsule (Macrobid) 100 mg PO BID #14 caps 06/24/22 [Rx Last Taken Unknown] levothyroxine 200 mcg tablet 200 mcg PO DAILY #90 tabs 08/05/22 [Rx Last Taken Unknown] clindamycin HCl 150 mg capsule 450 mg PO TID 7 days #63 caps 08/09/22 [Rx Last Taken Unknown] Allergy/AdvReac Type Severity Reaction Status Date / Time ciprofloxacin [From Cipro] Allergy Mild Rash Verified 08/09/22 18:27 ondansetron HCl Allergy Rash Verified 08/09/22 18:27 [From Zofran (as hydrochloride)] oxycodone HCl [From Percocet] Allergy Rash Verified 08/09/22 18:27 Penicillins [PCN] Allergy Other Verified 08/09/22 18:27 propoxyphene napsylate Allergy Rash Verified 08/09/22 18:27 [From Darvocet-N 100] shellfish derived Allergy Rash Verified 08/09/22 18:27 nickel AdvReac Intermediate Rash Verified 08/09/22 18:27 Family History Father Colon cancer Myocardial infarction Diabetes Hypertension Hyperlipemia Grandmother No problems noted. Mother Colon cancer Cancer Heart disease CVA (cerebral vascular accident) Diabetes Thyroid disorder Hypertension Myocardial infarction Hyperlipemia Brother Colon cancer Unknown Breast cancer 2 cousins Uncle Colon cancer Surgical History H/O: hysterectomy History of cholecystectomy History of colonoscopy (~08/14/19) History of esophagogastroduodenoscopy (EGD) History of laparoscopy History of oral surgery S/P colonoscopy S/P hysterectomy S/P wrist surgery Status post laparoscopic cholecystectomy Stone, kidney Social History Smoking Status: Never smoker second hand exposure: No alcohol intake: current alcohol intake frequency: holidays/special occasions only substance use type: does not use caffeine: Yes what type of physical activity do you participate in: none frequency: does not exercise ROS ROS ED ROS Narrative Constitutional: Negative for fever, chills, malaise. Neuro: Negative for motor/sensory dysfunction. Skin: Positive for wound. Musc: Positive for toe pain, trauma. EXAM Physical Exam Narrative Exam Narrative: CONST: Patient sitting in no acute distress. EYES: Normal inspection. NECK: Normal inspection. RESP: No respiratory distress, CTAB. CVS: Regular rate and rhythm, no murmur, no gallop. SKIN: Color normal, no rash, warm, dry, intact. EXTREMITIES: Left great toenail has onychomycosis, the distal portion is lifted up. The nail still feels firmly adhered but at the proximal matrix portion there is some dried blood. No subungual hematoma. She is tender over the great toe with no deformity or crepitus. No other tenderness of the ankle and foot. Normal strength and sensation, 2+ DP pulse. NEURO: Oriented x4. PSYCH: Normal affect. Const Vital Signs: 08/09/22 18:26 Temperature 97.7 F L Temperature Source Temporal Pulse Rate 71 Respiratory Rate 16 Blood Pressure 138/63 H Blood Pressure Mean 88 Pulse Ox 99 Oxygen Delivery Method Room Air MDM MDM MDM Narrative Medical decision making narrative: History gathered from: Patient and daughter Patient has a dog bite to her left foot. It is partially lifted the great toenail and caused some bleeding from the proximal portion. There are no other lacerations of the skin. There is no swelling or bruising but she is tender over the great toe so I ordered an x-ray to rule out potential open fracture. X-ray is negative. Since she is penicillin allergic she was given clindamycin and Tdap updated. Since she is diabetic she was instructed to closely watch for any signs of infection that would warrant immediate return. I also provided podiatry follow-up and she was discharged in stable condition. Differential: Dog bite, open fracture Radiography Diagnostic Testing: Clinical Impression(s) from Imaging Studies Toe X-Ray 08/09/22 18:45 IMPRESSION: Negative left toe x-rays. Electronically Signed: Juan Diego Ritter MD at 19:23 EDT , ED attending interpretation of left great toe and foot shows no fracture or dislocation. Discharge Plan Triage Chief Complaint: Bite ED Midlevel Provider: Annel Calvert ED Provider: Mele Small Dx/Rx/DC Orders Clinical Impression: Dog bite of left foot, Avulsion of toenail of left foot Prescriptions: New clindamycin HCl 150 mg capsule 450 mg PO TID 7 Days Qty: 63 0RF No Action (DME) Dexcom G7 Sensor Device See Rx Instructions .Route Qty: 3 6RF Rx Instructions: As directed Trulicity 3 mg/0.5 mL pen injector 3 mg subcut QWEEK Qty: 2 5RF Farxiga 10 mg tablet 10 mg PO DAILY Qty: 30 6RF nitrofurantoin monohyd/m-cryst [Macrobid] 100 mg capsule 100 mg PO BID Qty: 14 0RF Rx Instructions: must administer with a meal/food oxycodone-acetaminophen 5-325 mg Tablet 1 tab PO BID PRN (Reason: Pain) aspirin [Aspir-81] 81 mg Tablet,Delayed Release (Dr/Ec) 81 mg PO BID docusate sodium 100 mg Capsule 100 mg PO BID cyanocobalamin (vitamin B-12) Tablet,Chewable 1 tab PO DAILY magnesium gluconate 12.5 mg magne- sium (250 mg) Tablet 250 mg PO DAILY losartan-hydrochlorothiazide 100-12.5 mg tablet 1 tab PO DAILY Qty: 90 3RF lovastatin 20 mg tablet 20 mg PO QHS Qty: 90 3RF metformin 500 mg tablet extended release 24 hr 500 mg PO BID Qty: 180 3RF multivitamin Tablet 1 tab PO DAILY Qty: 90 3RF omeprazole 20 mg capsule,delayed release(DR/EC) 20 mg PO DAILY Qty: 90 3RF potassium citrate 99 mg capsule 99 mg PO DAILY Qty: 90 3RF insulin aspart U-100 [Novolog FlexPen U-100 Insulin] 100 unit/mL (3 mL) insulin pen 25 unit subcut TID 90 Days Qty: 67.5 5RF Lantus Solostar U-100 Insulin 100 unit/mL (3 mL) insulin pen 60 unit subcut BID 90 Days Qty: 108 5RF (DME) FreeStyle Mary Ann 14 Day Sensor Kit See Rx Instructions .ROUTE .MEDSUPPLY Qty: 2 3RF Rx Instructions: As directed levothyroxine 200 mcg tablet 200 mcg PO DAILY Qty: 90 1RF Primary Care Provider: Allison Gomez Referrals: Allison Gomez MD [Primary Care Provider] - Jose Jett DPM [Med Staff - Active Staff] - Activity Restrictions/Additional Instructions: Take the antibiotics and keep clean. Please follow-up with the foot doctor. Disposition Disposition: Home, Self Care
--- NOTE | 2022-08-09 18:45 | RAD_ITS ---
EXAM: XR LEFT TOES, 2 OR MORE VIEWS CLINICAL INDICATION: pain TECHNIQUE: Frontal, lateral and oblique views of the toes of the left foot. COMPARISON: No relevant prior studies available. FINDINGS: BONES/JOINTS: Unremarkable. No acute fracture. No dislocation. SOFT TISSUES: Unremarkable. No radiopaque foreign body. RAD/Toe(s) Min 2 Views IMPRESSION: Negative left toe x-rays. Electronically Signed: Juan Diego Ritter MD at 19:23 EDT ,
[2022-08-09] MEDS: Diphth,Pertuss(Acell),Tet Vac 0.5 ML Vial IM (18:51)
[2022-08-09 18:53] VITALS: BMI 44.0
[2022-08-09] MEDS: Clindamycin HCl 150 MG Capsule 450 MG PO (19:48)
== END 2022-08-09 19:56 | disposition home or self-care (01) ==
PROVIDERS: Emergency Provider Emergency Medicine; PCP Internal Medicine; Visit Provider Emergency Medicine
DX: S91.352A Open bite, left foot, initial encounter (principal); E11.9 Type 2 diabetes mellitus without complications; Z79.4 Long term (current) use of insulin; I10 Essential (primary) hypertension; W54.0XXA Bitten by dog, initial encounter; E78.5 Hyperlipidemia, unspecified; Z79.84 Long term (current) use of oral hypoglycemic drugs; K21.9 Gastro-esophageal reflux disease without esophagitis; Z79.82 Long term (current) use of aspirin; Z79.899 Other long term (current) drug therapy; Z90.710 Acquired absence of both cervix and uterus; Z90.49 Acquired absence of other specified parts of digestive tract; Z23 Encounter for immunization
CPT/HCPCS: 11730; 11750; 73660; 90471; 90715; 96372; 99283

== ENCOUNTER → 2022-08-31 | Outpatient (CLI) | payer MEDICARE, SELFPAY ==
[2022-08-31 17:51] LABS: Mucous, Urine 0 SEEN /hpf (<or=2+)
[2022-08-31 18:20] LABS: Color, Urine Yellow (Yellow); Glucose, Dipstick Normal (Normal); Ketone-Dipstick 5 mg/dl (Negative); Leukocyte Esterase-Dipstick 500 /ul (Negative); Nitrite-Dipstick Negative (Negative); Occult Blood-Urine 10 /ul (Negative); Protein-Dipstick 30 mg/dl (Negative); Urine Bilirubin Dipstick Negative (Negative); Urine Clarity Cloudy (Clear); Urine Urobilinogen Normal (Normal)
[2022-08-31 18:51] LABS: Amorphous Sediment 1+ PHOS; Bacteria 2+ /hpf (None Seen); Red Blood Cells-Urine 0-5 SEEN /hpf (0-5); Squamous Epithelial Cells - UA 0-5 SEEN /hpf (5-10); White Blood Cells 50-100 SEEN /hpf (0-5)
== END | disposition home or self-care (01) ==
LOC: LABSPEC 09-01 09:42
PROVIDERS: PCP Internal Medicine; Referring Provider Physician Assistant; Visit Provider Physician Assistant
DX: R35.0 Frequency of micturition (principal)
CPT/HCPCS: 81001; 87077; 87086; 87088; 87186

== ENCOUNTER → 2022-10-26 | Outpatient (CLI) | payer MEDICARE, SELFPAY ==
[2022-10-26 14:01] LABS: ALB/GLOB Ratio 0.8 RATIO (0.9-2.4); AST(SGOT) 24 U/L (15-37); Alanine Aminotransfer ALT/SGPT 34 U/L (13-56); Albumin, Serum 3.2 g/dL (3.2-5.0); Alkaline Phosphatase 74 U/L (45-117); Anion Gap 4 (5-15); BUN 17 mg/dL (7-18); BUN/Creat Ratio 13.4 RATIO (10-20); Calcium,Total 9.2 mg/dL (8.5-10.1); Chloride 105 mmol/L (98-107); Creatinine, Serum 1.27 mg/dL (0.55-1.02); EST Glomerular Filtration Rate 44 mL/min (>60); Est Glom Filt Rate - Afr Amer 54 mL/min (>60); Globulin 3.8 g/dL (2.2-4.2); Glucose 232 mg/dL (74-106); Potassium 4.3 mmol/L (3.5-5.1); Sodium Level 137 mmol/L (136-145)
[2022-10-26 14:02] LABS: T4 Free Direct 1.61 ng/dL (0.76-1.46); Thyroid Stim Hormone (TSH) 3.02 uIU/mL (0.358-3.74)
== END | disposition home or self-care (01) ==
PROVIDERS: PCP Internal Medicine; Referring Provider Internal Medicine Endocrinology, Diabetes & Metabolism; Visit Provider Internal Medicine Endocrinology, Diabetes & Metabolism
DX: I10 Essential (primary) hypertension (principal); E11.9 Type 2 diabetes mellitus without complications; E03.9 Hypothyroidism, unspecified
CPT/HCPCS: 36415; 80053; 84439; 84443; 84481

== ENCOUNTER 2022-11-02 10:00 | Outpatient (RCR) | payer MEDICARE, SELFPAY ==
--- NOTE | 2022-06-17 10:28 | HP.PTEVAL_ITS ---
Patient's Visit Information NIMO MCCLOUD is a 71 year old F referred to Physical Therapy by SOFÍA MCCORMICK with a diagnosis of s/p L TKA 05/26/22. Date of Evaluation: 06/17/22 Physical Therapist: Mele Prasad, DPT, OCS, CSCS - Visit Plan Frequency: 3x /Week Duration: 4-6 Weeks Plan: 3x/week for 4-6 weeks for. 1. patellar mobs and L knee ROM flexion. 2. strengthening of LE to I. 3. gait training without AD and stair training. Pt has wheels for walker at home and showed her how to put them on today but she may bring them in for us to put on. ice as needed. - Subjective L TKA on 05/26/22. Due to bone on bone and years of pain. In hospital 2 days due to anaesthesia sickness. Then home and dtr is there with her and had home health. Dtr still staying with her but she normally lives alone in one story with 5 steps with railing and doing ok with thaat with right LE. Needs help getting pants over L foot due to limited ROM. bathroom I. Shower needs trasnfer bench and assist as she has a tub to step into. Walking at home with walker most of time, has cane and wheels for walker which she will bring in. Uses counter to surf. Sleep is Ok, back and hips hurt a little lying on back to sleep. Sitting too long can also bother back. Pain 1-7/10. Intermittent tingly in toes and lateral L knee numbness. Dr Mccormick is surgeon. 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 Will be able to sit as needed. Hobbies: reading is OK. No active hobbies, wants to walk dog. Exercise; walking to work. HEP for knee: AP, HR, HS with OP, marching standing, hip abduction standing, HS stretch, QS. Doing these 2x/day - Pain L knee Pain Intensity (Out of 10): 2 Pain Intensity Range: 1, 7 Comment: worse on it alot, out to eat worse. Achy at rest. - Objective girth L 20 inch and 27 inch 6 inch sp. L knee 0-60. Sensation WNL to gross light touch in LE. 23# ext adn 24# flexion L leg. Walking with walker with peg leg L, Better knee flexion with wh walker : I with both. trasnfer chair I with UE, keeps L leg out and straighter. bed trasnferf I. Steps with R only and two rails. Walks without ad slowly and hesitantly but good WB, cues needed to bend L knee. - Balance/Special Test Scores TUG Test Time Seconds: 24 WOMAC Total Score: 51 WOMAC Percentatge: 46.8800 - Goals Goal 1:: ST: 0-110 AROM without pain >3/10 Goal Time Frame: 2-4 Weeks Goal 2:: ST: walk in therapy safely and normally without AD Goal Time Frame: 2-4 Weeks Goal 3:: LT: walk in community without AD need and steps reciprocal with one rail Goal Time Frame: 4-6 Weeks Goal 4:: I apporpriate HEP ROM and strength to limit future problkem Goal Time Frame: 4-6 Weeks Goal 5:: WOMAC 10 or better Goal Time Frame: 4-6 Weeks Goal 6:: Walk dog without pain safely Goal Time Frame: 4-6 Weeks - Rehabilitation Potential Physical Therapy Diagnosis: Knee stiffness and weakness after TKA effecting function Rehabilitation Potential: Fair - Anticipated Interventions Patient/Client Instruction: Educate patient on: Condition, Plan of Care For the Purpose of:: To decrease pain, To increase ROM, To improve nutrient delivery to tissue, To increase oxygenation perfusion, To improve muscle performance and motor function, To increase tolerance to activity/condition/position, To improve ability of physical actions for home/community/work/leisure Therapeutic Exercise to Include: Strength training, Postural training, Flexibilty training, Gait and locomotor training, Passive ROM, Active ROM For the Purpose of:: To decrease pain, To decrease swelling/inflammation, To increase ROM, To improve nutrient delivery to tissue, To improve muscle performance and motor function, To increase tolerance to acti vity/condition/position, To improve ability of physical actions for home/community/work/leisure Manual Therapy Techniques to Include: Mobilization, Passive ROM, Soft tissue mo bilization For the Purpose of:: To increase ROM Cryotherapy (ice pack, ice massage): Yes For the Purpose of:: To decrease pain, To decrease swelling/inflammation Thank you for the opportunity to evaluate your patient. For Medicare and Medicare HMO plans, please review the plan of care and approve it. It will need to be FAXED BACK to us at [phone] for Medicare purposes. For Medicare only, by signing this I certify the plan of care. Please let me know if there are questions or concerns regarding this plan of care. Physician Signature: Date:
--- NOTE | 2022-07-17 10:25 | HP.PTREVAL_ITS ---
SOFÍA MUKHERJEE, It has been my pleasure to treat NIMO MCCLOUD over the last 13 visits for s/p L TKA 05/26/22. Please see the progress note below for an update on the physical therapy plan of care! Subjective: Pain is still an issue, 4/10 daily intermittent, and without reason. did not sleep good last night. Up at night 1-2x/week. ROM is stiff. Sees d octor next week. Doing regular chair flexion at home, 5x/day 10x. Aslo doing some standing strengtheing. Using cane cane safely at home. Activities at home are avoiding housecleaning and vaccuum. Balance feels off. can walk kitchen without cane.Can vaccuum one room at a time before needs to stop Objective/Function: -1 to 85 AROM today, PROM to 88, very stiff and self limited by 9/10 pain end range flexion, does not push herself. Walking with cane safe and I with decent knee flexion at swing. Steps are reciprocal up but has to pull with arms when using L, Unable to step down using L due to lack of knee flexion. She has intermittent bad days abut cannot verbalize why some days are worse than others, verbalizes compliance with home ROM and strength ex. Overall stiffness and soreness holding her back Plan Plan: continue 3x/week for 2 weeks, pt to doctor next week to see if other options on ROM which is not improving with therapy or HEP and seems stuck at 85- 90 degrees. In therapy, continue to work on patellar mobs, PROM, AROM and strength ex, gait training as ROM allows. to call if doctor changes plan. Balance/Gait/Functional tests - Balance/Special Test Scores Functional Gait Assessment Score: 19 % Disability: 36.6700 Lower Extremity Functional Score: 3 TUG Test Time Seconds: 24 Tug Test: 20-30sec.=variable mobility WOMAC Total Score: 53 WOMAC Percentage: 44.8000 Goals Goal 1:: ST: 0-110 AROM without pain >3/10 Goal Time Frame: 2-4 Weeks Goal Progress: STIFF Goal 2:: ST: walk in therapy safely and normally without AD Goal Time Frame: 2-4 Weeks Goal Progress: needs cane Goal 3:: LT: walk in community without AD need and steps reciprocal with one rail Goal Time Frame: 4-6 Weeks Goal Progress: Not Progressing Goal 4:: I apporpriate HEP ROM and strength to limit future problkem Goal Time Frame: 4-6 Weeks Goal Progress: Progressing Goal 5:: WOMAC 10 or better Goal Time Frame: 4-6 Weeks Goal Progress: Not Progressing Goal 6:: Walk dog without pain safely Goal Time Frame: 4-6 Weeks Goal Progress: Not Progressing Anticipated Interventions Patient/Client Instruction: Educate patient on: Condition, Plan of Care For the Purpose of:: To decrease pain, To increase ROM, To improve nutrient delivery to tissue, To increase oxygenation perfusion, To improve muscle performance and motor function, To increase tolerance to activity/condition/position, To improve ability of physical actions for home/community/work/leisure Therapeutic Exercise to Include: Strength training, Postural training, Flexibilty training, Gait and locomotor training, Passive ROM, Active ROM For the Purpose of:: To decrease pain, To decrease swelling/inflammation, To increase ROM, To improve nutrient delivery to tissue, To improve muscle performance and motor function, To increase tolerance to activity/condition/position, To improve ability of physical actions for home/community/work/leisure Manual Therapy Techniques to Include: Mobilization, Passive ROM, Soft tissue mobilization For the Purpose of:: To increase ROM Cryotherapy (ice pack, ice massage): Yes For the Purpose of:: To decrease pain, To decrease swelling/inflammation Please do not hesitate to contact me at [phone] by phone or if you have questions or concerns regarding this new plan of care! Sincerely, Mele Prasad, DPT, OCS, CSCS
--- NOTE | 2022-08-24 10:32 | HP.PTREVAL_ITS ---
SOFÍA MUKHERJEE, It has been my pleasure to treat NIMO MCCLOUD over the last 28 visits for s/p L TKA 05/26/22. Please see the progress note below for an update on the physical therapy plan of care! Subjective: Pain is not an issue. Stiff much of time. Pool really helps. Benidng it in chair at home. Returned to work last week 5+ hours and tired but not painful. Doing most things she needs to at home but stiff and sore with bending. Objective/Function: -1 to 91 degree AROM L knee today until stretched then 97 degrees. Steps look much better without circumduction up and down reciprocally but requiring hands on rail due to stiffness. Walking with cane into and out of PT, stiff but funcitonal giat. Goals are appropriate for another 4 week POC and fair prognosis for funcitonal improvement and questionable on ROM numbers goal. Pt muscle kicks in when pain reaches a certain level with bending prohibiting further bending. Plan Plan: back down to 3x/week for 2 weeks then weekly x 2(4 week total ) to manage weaning off therapy and ensure home function. [place] spend time doing manual for knee rom and strength with low squats and high steps up and ensuring funcitonal progression. Balance/Gait/Functional tests - Balance/Special Test Scores Functional Gait Assessment Score: 19 % Disability: 36.6700 Lower Extremity Functional Score: 3 TUG Test Time Seconds: 24 Tug Test: 20-30sec.=variable mobility WOMAC Total Score: 53 WOMAC Percentage: 44.8000 Goals Goal 1:: ST: 0-110 AROM without pain >3/10 Goal Time Frame: 2-4 Weeks Goal Progress: slow progression Goal 2:: ST: walk in therapy safely and normally without AD Goal Time Frame: 2-4 Weeks Goal Progress: Goal Met Goal 3:: LT: walk in community without AD need and steps reciprocal with one rail Goal Time Frame: 4-6 Weeks Goal Progress: cane, steps met. Goal 4:: I apporpriate HEP ROM and strength to limit future problkem Goal Time Frame: 4-6 Weeks Goal Progress: Progressing Goal 5:: WOMAC 10 or better Goal Time Frame: 4-6 Weeks Goal Progress: Not Progressing Goal 6:: Walk dog without pain safely Goal Time Frame: 4-6 Weeks Goal Progress: Progressing Anticipated Interventions Patient/Client Instruction: Educate patient on: Condition, Plan of Care For the Purpose of:: To decrease pain, To increase ROM, To improve nutrient delivery to tissue, To increase oxygenation perfusion, To improve muscle performance and motor function, To increase tolerance to activity/condition/position, To improve ability of physical actions for home/community/work/leisure Therapeutic Exercise to Include: Strength training, Postural training, Flexibilty training, Gait and locomotor training, Passive ROM, Active ROM For the Purpose of:: To decrease pain, To decrease swelling/inflammation, To increase ROM, To improve nutrient delivery to tissue, To improve muscle performance and motor function, To increase tolerance to activity/condition/ position, To improve ability of physical actions for home/community/work/leisure Manual Therapy Techniques to Include: Mobilization, Passive ROM, Soft tissue mobilization For the Purpose of:: To increase ROM Cryotherapy (ice pack, ice massage): Yes For the Purpose of:: To decrease pain, To decrease swelling/inflammation Please do not hesitate to contact me at [phone] by phone or if you have questions or concerns regarding this new plan of care! Sincerely, Mele Prasad, DPT, OCS, CSCS
--- NOTE | 2022-09-07 13:48 | HP.PTREVAL_ITS ---
SOFÍA MUKHERJEE, It has been my pleasure to treat NIMO MCCLOUD over the last 33 visits for s/p L TKA 05/26/22. Please see the progress note below for an update on the physical therapy plan of care! Subjective: To doctor in September. I think I am doing better. Getting out after sitting long time gets real stiff and takes a minute to get bearings. Uses cane sometimes for longer distances but not at home. Activities at home are normal albeit a little slower. Objective/Function: L quad 37 # abd HS 38#. 0-106 PROM and 102 AROM flexion. walking normally albeit slow first exitting chair. steps up with one rail reciprocally, needs two rails to descend with L. functional with activity and ADLs at home. Plan Plan: f/u two weeks to ensure progress adn d./c if doing well, pt to call in meantime if worsens. Pain and funciton are good outside of descending steps and lack of ROM which is still much improved form a month ago. Balance/Gait/Functional tests - Balance/Special Test Scores Functional Gait Assessment Score: 19 % Disability: 36.6700 Lower Extremity Functional Score: 3 TUG Test Time Seconds: 13 Tug Test: <20 sec.=mostly independent WOMAC Total Score: 21 WOMAC Percentage: 78.1300 Goals Goal 1:: ST: 0-110 AROM without pain >3/10 Goal Time Frame: 2-4 Weeks Goal Progress: slow progression Goal 2:: ST: walk in therapy safely and normally without AD Goal Time Frame: 2-4 Weeks Goal Progress: Goal Met Goal 3:: LT: walk in community without AD need and steps reciprocal with one rail Goal Time Frame: 4-6 Weeks Goal Progress: Goal Met Goal 4:: I apporpriate HEP ROM and strength to limit future problkem Goal Time Frame: 4-6 Weeks Goal Progress: Goal Met Goal 5:: WOMAC 10 or better Goal Time Frame: 4-6 Weeks Goal Progress: Progressing Goal 6:: Walk dog without pain safely Goal Time Frame: 4-6 Weeks Goal Progress: Goal Met Anticipated Interventions Patient/Client Instruction: Educate patient on: Condition, Plan of Care For the Purpose of:: To decrease pain, To increase ROM, To improve nutrient delivery to tissue, To increase oxygenation perfusion, To improve muscle performance and motor function, To increase tolerance to acti vity/condition/position, To improve ability of physical actions for home/community/work/leisure Therapeutic Exercise to Include: Strength training, Postural training, Flexibil ty training, Gait and locomotor training, Passive ROM, Active ROM For the Purpose of:: To decrease pain, To decrease swelling/inflammation, To increase ROM, To improve nutrient delivery to tissue, To improve muscle performance and motor function, To increase tolerance to activity/condition/position, To improve ability of physical actions for home/community/work/leisure Manual Therapy Techniques to Include: Mobilization, Passive ROM, Soft tissue mobilization For the Purpose of:: To increase ROM Cryotherapy (ice pack, ice massage): Yes For the Purpose of:: To decrease pain, To decrease swelling/inflammation Please do not hesitate to contact me at [phone] by phone or if you have questions or concerns regarding this new plan of care! Sincerely, Mele Prasad, DPT, OCS, CSCS
--- NOTE | 2022-09-29 10:28 | HP.PTREVAL ---
Re-Evaluation Intro: SOFÍA MUKHERJEE, It has been my pleasure to treat NIMO MCCLOUD over the last 34 visits for s/p L TKA 05/26/22. Please see the progress note below for an update on the physical therapy plan of care! Subjective Subjective: Saw doctor yesterday and may need more therapy. Not bending real well. has been very painful since last session and unable to do a lot of exercises. Doctor said bursitis and gave her a cortisone injection yesterday. Pain got up to 9/10 with bursitis. Wroks 3 days per week adn sits alot. Tried to keep it moving at work but hard to do and swelled up. Has been icing it and elevating after work adn taking ibuprofen. She thinks the injection helps as she feels better today. 95% better today after injection but only 50% last week prior to injection. To doctor only if needed. HEP resumed. Overall pain got worse and needed to use cane more but still doing most of what she needs to do. Used cane to walk until had injection. Not needed today. Steps are still tight and challenging and one at a time sometimes. Objective Objective/Function: 0-90 AROM L knee limited by tightness pain, PROM to 92, pt muscle contractions not allowing to push further. Walking well with decent balance although slow and elow avg balance score for age. steps require rails but can do reciprocally with minimal pain today. Overall decent function maybe not a good as 3 weks ago, worse ROM. injection yesterday helped pain.\ WOMAC slightly improved . New goal and questionable prognosis Plan Plan Plan: 2x/week for 4 weeks for 1. patellar mobs and PROM knee flexion L. 2. Strength L knee machines and funcitonal Balance/Gait/Functional tests Balance/Special Test Scores Functional Gait Assessment Score: 25 % Disability: 16.6700 Lower Extremity Functional Score: 3 TUG Test Time Seconds: 13 Tug Test: <10 sec.=free mobile WOMAC Total Score: 18 WOMAC Percentage: 81.2500 Goals Goals Goal 1:: ST: 0-110 AROM without pain >3/10 Goal Time Frame: 2-4 Weeks Goal Progress: approp, worse in 2 weeks Goal 2:: ST: walk in therapy safely and normally without AD Goal Time Frame: 2-4 Weeks Goal Progress: Goal Met Goal 3:: LT: walk in community without AD need and steps reciprocal with one rail Goal Time Frame: 4-6 Weeks Goal Progress: Goal Met Goal 4:: I apporpriate HEP ROM and strength to limit future problkem Goal Time Frame: 4-6 Weeks Goal Progress: Goal Met Goal 5:: WOMAC 10 or better Goal Time Frame: 4-6 Weeks Goal Progress: Progressing, approp Goal 6:: Walk dog without pain safely Goal Time Frame: 4-6 Weeks Goal Progress: Goal Met Anticipated Interventions Anticipated Interventions Patient/Client Instruction: Educate patient on: Condition and Plan of Care For the Purpose of:: To decrease pain, To increase ROM, To improve nutrient delivery to tissue, To increase oxygenation perfusion, To improve muscle performance and motor function, To increase tolerance to activity/condition/position and To improve ability of physical actions for home/community/work/leisure Therapeutic Exercise to Include: Strength training, Postural training, Flexibilty training, Gait and locomotor training, Passive ROM and Active ROM For the Purpose of:: To decrease pain, To decrease swelling/inflammation, To increase ROM, To improve nutrient delivery to tissue, To improve muscle performance and motor function, To increase tolerance to activity/condition/position and To improve ability of physical actions for home/community/work/leisure Manual Therapy Techniques to Include: Mobilization, Passive ROM and Soft tissue mobilization For the Purpose of:: To increase ROM Cryotherapy (ice pack, ice massage): Yes For the Purpose of:: To decrease pain and To decrease swelling/inflammation Re-Evaluation Ending Re-evaluation ending: Please do not hesitate to contact me at [phone] by phone or if you have questions or concerns regarding this new plan of care! Sincerely, Mele Prasad, DPT, OCS, CSCS
--- NOTE | 2022-11-02 10:25 | HP.PTDCSUM ---
Discharge Summary D/C summary: It has been my pleasure to treat NIMO MCCLOUD referred by SOFÍA MUKHERJEE, with the diagnosis of s/p L TKA 05/26/22 for a total of 42 visit(s). Discharge Date: 11/02/22 Please see the following information for a summary of their discharge status. Subjective Subjective: Pain is not an issue, 1/10 pain now and then for no reason but not bad. has to take a second when she stands up due to lack of trust in the knee. Pain L knee: Pain Intensity (Out of 10): 0 Overall Improvement % Improvement: 95 Objective Objective/Function: -2 to 94 degree aROM L knee, self limited by pain but firm endfeel and muscles tighten. Walks without gait deviations. Ascneds and descends step with one rail and L knee hurt slightly and transiently descneding. Chair and bed transfers I. Overall doing well funcitonally, stiffer than expected but body not cooperating with this part of it. Goals Goal 1:: ST: 0-110 AROM without pain >3/10 Goal Progress: Not Progressing Goal 2:: ST: walk in therapy safely and normally without AD Goal Progress: Goal Met Goal 3:: LT: walk in community without AD need and steps reciprocal with one rail Goal Progress: Goal Met Goal 4:: I apporpriate HEP ROM and strength to limit future problkem Goal Progress: Goal Met Goal 5:: WOMAC 10 or better Goal Progress: Not Progressing Goal 6:: Walk dog without pain safely Goal Progress: Goal Met Plan Plan: d/c D/C Information Discharge Comments: pt doing well functionally with some limitations on steps due to stiffness and lacks confidence. will continue with HEP and f/u with doctor when appropriate. d/c sentence: If there are questions or concerns regarding this patient's physical therapy, please feel free to call me at [phone]. Thank you for the referral of this patient. Sincerely, Mele Prasad, DPT, OCS, CSCS Balance/Gait/Functional tests Balance/Special Test Scores Functional Gait Assessment Score: 28 % Disability: 6.6700 Lower Extremity Functional Score: 3 TUG Test Time Seconds: 13 Tug Test: <10 sec.=free mobile WOMAC Total Score: 18 WOMAC Percentage: 81.2500
== END 2022-11-02 19:00 | disposition home or self-care (01) ==
LOC: PT 10:00
PROVIDERS: PCP Internal Medicine
DX: M17.12 Unilateral primary osteoarthritis, left knee (principal)
CPT/HCPCS: 81001; 87086; 97016; 97110; 97140; 97161; 97164; 97530

== ENCOUNTER 2022-12-10 13:35 | Emergency (ER) | payer MEDICARE, SELFPAY ==
[2022-12-10 13:37] VITALS: BP 168/78; PULSE 84; RESP 18; TEMP 36.5; O2SAT 99; BMI 47.1
[2022-12-10 14:43] LABS: Mucous, Urine 0 SEEN /hpf (<or=2+); Red Blood Cells-Urine 0 SEEN /hpf (0-5)
[2022-12-10 14:47] LABS: Color, Urine Yellow (Yellow); Glucose, Dipstick 250 mg/dl (Normal); Ketone-Dipstick Negative (Negative); Leukocyte Esterase-Dipstick 25 /ul (Negative); Nitrite-Dipstick Negative (Negative); Occult Blood-Urine Negative /ul (Negative); Protein-Dipstick Negative (Negative); Specific Gravity, Urine 1.015 (1.002-1.030); Urine Bilirubin Dipstick Negative (Negative); Urine Clarity Clear (Clear); Urine Urobilinogen Normal (Normal); Urine pH 6.5 (5.0 - 8.0)
--- NOTE | 2022-12-10 14:50 | EX.ED.DYSGE1 ---
HPI History of Present Illness Chief Complaint: Flank Pain Informant: patient Onset/Context/Timing Onset: Days (5) Context: Gradual Onset Timing: Continuous Quality: Aching Location: Right flank Worsened by: Movement Relieved by: Rest Narrative Narrative: Patient presents with right flank pain that has been constant for the past 5 days. Patient states it came on gradually. Patient describes her pain as aching. Patient states it is worse with certain movements. Patient states it is better with rest. Patient states her pain initially started in her right shoulder and then moved to her right flank. Patient states she has been having some urinary frequency and thought she may have a urinary tract infection. Patient [facility]. Patient states she was referred here because they felt it was more likely a kidney stone. Patient admits to some subjective chills but denies any fevers. [facility] Medical History Alcohol use Arthritis Asthma BiPAP (biphasic positive airway pressure) dependence Cancer Chronic cough Diabetes Diarrhea Dietary restriction Easy bruising GERD (gastroesophageal reflux disease) Hemorrhoids History of colon polyps History of diverticulitis History of echocardiogram History of edema History of stress test HTN (hypertension) Hyperlipidemia Kidney disease Leg cramps Low back pain Non-smoker Obesity ANISHA (obstructive sleep apnea) Pyelonephritis Restless legs Shortness of breath on exertion Shoulder pain Urinary urgency Wears dentures Wears glasses Home Medications losartan 100 mg-hydrochlorothiazide 12.5 mg tablet 1 tab PO DAILY HTN #90 tabs 02/16/22 [Rx Last Taken Unknown] lovastatin 20 mg tablet 20 mg PO QHS cholesterol #90 tabs 02/16/22 [Rx Last Taken Unknown] metformin 500 mg tablet,extended release 24 hr 500 mg PO BID #180 tabs 02/16/22 [Rx Last Taken Unknown] multivitamin 1 tab PO DAILY #90 tabs 02/16/22 [Rx Last Taken Unknown] omeprazole 20 mg capsule,delayed release 20 mg PO DAILY GERD #90 caps 02/16/22 [Rx Last Taken Unknown] potassium citrate 99 mg capsule 99 mg PO DAILY #90 caps 02/16/22 [Rx Last Taken Unknown] insulin aspart U-100 100 unit/mL (3 mL) subcutaneous pen (Novolog FlexPen U-100 Insulin aspart) 25 unit (0.25 mL) subcut TID 90 days #67.5 mL 05/04/22 [Rx Last Taken Unknown] insulin glargine 100 unit/mL (3 mL) subcutaneous pen (Lantus Solostar U-100 Insulin) 60 unit (0.6 mL) subcut BID 90 days #108 mL 05/04/22 [Rx Last Taken Unknown] aspirin 81 mg tablet,delayed release 81 mg PO BID 06/03/22 [History Last Taken Unknown] cyanocobalamin (vitamin B-12) 1 tab PO DAILY 06/03/22 [History Last Taken Unknown] magnesium gluconate 12.5 mg magnesium (250 mg) tablet 250 mg PO DAILY 06/03/22 [History Last Taken Unknown] levothyroxine 200 mcg tablet 200 mcg PO DAILY #90 tabs 08/05/22 [Rx Last Taken Unknown] flash glucose sensor (FreeStyle Mary Ann 14 Day Sensor kit) #2 ea 11/09/22 [Rx Last Taken Unknown] Trulicity 4.5 mg/0.5 mL subcutaneous pen injector (dulaglutide) 4.5 mg (0.5 mL) subcut QWEEK #2 mL 11/26/22 [Rx Last Taken Unknown] hydrocodone-acetaminophen 5-325mg 5mg-325mg 1 tab PO Q6H PRN PRN Pain 3 days #10 TABLETS 12/10/22 [Rx Last Taken Unknown] Allergy/AdvReac Type Severity Reaction Status Date / Time ciprofloxacin [From Cipro] Allergy Mild Rash Verified 12/10/22 13:36 ondansetron HCl Allergy Rash Verified 12/10/22 13:36 [From Zofran (as hydrochloride)] oxycodone HCl [From Percocet] Allergy Rash Verified 12/10/22 13:36 Penicillins [PCN] Allergy Other Verified 12/10/22 13:36 propoxyphene napsylate Allergy Rash Verified 12/10/22 13:36 [From Darvocet-N 100] nickel AdvReac Intermediate Rash Verified 12/10/22 13:36 Family History Father Colon cancer Myocardial infarction Diabetes Hypertension Hyperlipemia Grandmother No problems noted. Mother Colon cancer Cancer Heart disease CVA (cerebral vascular accident) Diabetes Thyroid disorder Hypertension Myocardial infarction Hyperlipemia Brother Colon cancer Unknown Breast cancer 2 cousins Uncle Colon cancer Surgical History H/O: hysterectomy History of cholecystectomy History of colonoscopy (~08/14/19) History of esophagogastroduodenoscopy (EGD) History of laparoscopy History of oral surgery S/P colonoscopy S/P hysterectomy S/P wrist surgery Status post laparoscopic cholecystectomy Stone, kidney Social History Smoking Status: Never smoker second hand exposure: No alcohol intake: current alcohol intake frequency: holidays/special occasions only substance use type: does not use caffeine: Yes what type of physical activity do you participate in: none frequency: does not exercise ROS ROS ED Constitutional Constitutional ED: Reports chills and subjective; Denies fever(s) Eyes Eyes: Denies blurry vision or change in vision ENT ENT ED: Reports rhinorrhea; Denies sore throat Cardiovascular Cardiovascular: Denies chest pain or palpitations Respiratory/Chest Respiratory/Chest: Denies cough or dyspnea Gastrointestinal Gastrointestinal: Denies nausea or vomiting Genitourinary Genitourinary ED: Reports urinary frequency; Denies dysuria or hematuria Musculoskeletal Musculoskeletal: Reports back pain; Denies neck pain Integumentary Denies abscess or rash Neurologic Neurologic: Reports headache(s); Denies weakness Allergic/Immunologic Allergic/Immunologic ED: Denies mouth swelling or urticaria EXAM Physical Exam Const Vital Signs: 12/10/22 13:37 Temperature 97.7 F L Temperature Source Temporal Pulse Rate 84 Respiratory Rate 18 Blood Pressure 168/78 H Blood Pressure Mean 108 Pulse Ox 99 Oxygen Delivery Method Room Air Positive well nourished, well developed and obese General Appearance ED: well developed and NAD Nutritional Appearance: obese HEENT Reports moist mucous membranes Neck supple and no JVD Resp normal respiratory effort and clear to auscultation bilaterally Cardio regular rate and regular rhythm GI normal to inspection, nondistended, normoactive bowel sounds Palpation: soft and tender RLQ (Mild) and RUQ (Mild); Negative for guarding or rebound tenderness present Back/Spine General Back: CVA tenderness right Extremity normal to inspection General Extremety ED: Negative for edema or tenderness General Extremity: Negative for edema Neuro oriented x3, CN's II-XII intact bilaterally and no sensory deficits noted Sensorium / Orientation: alert Motor Exam: strength 5/5 throughout Psych mental status grossly normal Skin no rashes or lesions noted MDM MDM MDM Narrative Medical decision making narrative: Differential diagnosis includes ureteral calculus, pyelonephritis, mesenteric adenitis, choledocholithiasis, pancreatitis, hepatitis, and musculoskeletal pain. CT scan of the abdomen pelvis will be obtained to assess for ureteral calculus and choledocholithiasis. CBC will be obtained to assess for leukocytosis and anemia. Comprehensive metabolic profile will be obtained to assess for hepatic function, renal function, and electrolyte abnormality. Urinalysis will be obtained to assess for urinary tract infection and hematuria. Lipase will be obtained to assess for pancreatitis. Lab Data Attestation: I reviewed the patient's lab results. Lab results narrative: CBC was reviewed and was within normal limits. Comprehensive metabolic profile was reviewed. BUN was 20 and creatinine was 1.27. This is consistent with prior results. Lipase was reviewed and was normal. Urinalysis was reviewed. There is no evidence of urinary tract infection or hematuria. Labs: Laboratory Results - last 24 hr 12/10/22 12/10/22 14:33 14:36 WBC 9.0 RBC 4.38 Hgb 11.4 L Hct 42.3 MCV 96.6 MCH 26.0 L MCHC 27.0 L RDW Std Deviation 51.1 H RDW Coeff of Tara 14.3 Plt Count 243 MPV 10.4 Immature Gran % (Auto) 0.600 Neut % (Auto) 63.8 Lymph % (Auto) 26.2 [place] % (Auto) 7.1 Eos % (Auto) 1.9 Baso % (Auto) 0.4 Absolute Neuts (auto) 5.7 Absolute Lymphs (auto) 2.36 Nucleated RBC % 0 Platelet Estimate ADEQUATE RBC Morphology N CHROM Anisocytosis 1+ Macrocytosis 1+ Ovalocytes RARE Sodium 137 Potassium 4.2 Chloride 105 Carbon Dioxide 27.0 Anion Gap 5 BUN 20 H Creatinine 1.27 H Estim Creat Clear Calc 36.10 Est GFR (MDRD) Af Amer 54 L Est GFR (MDRD) Non-Af 44 L BUN/Creatinine Ratio 15.7 Glucose 243 H Calcium 9.1 Total Bilirubin 0.20 AST 24 ALT 28 Alkaline Phosphatase 76 Total Protein 6.9 Albumin 3.0 L Globulin 3.9 Albumin/Globulin Ratio 0.8 L Lipase 63 Urine Color Yellow Urine Clarity Clear Urine pH 6.5 Ur Specific [place] 1.015 Urine Protein Negative Urine Glucose (UA) 250 H Urine Ketones Negative Urine Occult Blood Negative Urine Nitrite Negative Urine Bilirubin Negative Urine Urobilinogen Normal Ur Leukocyte Esterase 25 H Urine RBC 0 SEEN Urine WBC 0-5 SEEN Ur Squamous Epith Cells 0-5 SEEN Urine Bacteria 1+ Urine Mucus 0 SEEN Radiography Diagnostic Testing: Clinical Impression(s) from Imaging Studies Abdomen/Pelvis CT 12/10/22 14:59 IMPRESSION: No acute abnormality is seen. Electronically Signed: Heriberto Polanco MD at 15:42 EDT , CT scan of the abdomen pelvis was obtained. There is no acute process. There is no ureteral calculus. There is no free air or free fluid. There is no bowel obstruction or perforation. This was interpreted by the radiologist and was also independently reviewed by myself. Treatment and Re-Evaluation :: Patient was given IV fluids and morphine here. Patient was feeling better on reevaluation. Patient was advised of her findings. Patient was given a prescription for a short course of [place]. Patient was instructed to follow-up with her primary care physician in 5 to 7 days for reevaluation. Patient understood and was agreeable with the plan. All questions were answered. Discharge Plan Triage Chief Complaint: Flank Pain ED Provider: Mele Small Dx/Rx/DC Orders Clinical Impression: Acute right flank pain, Morbid obesity, DM2 (diabetes mellitus, type 2) Instructions: ED Flank Pain, Uncertain Cause Prescriptions: New hydrocodone-acetaminophen [hydrocodone-acetaminophen] 5-325 mg tablet 1 tab PO Q6H PRN PRN (Reason: Pain) 3 Days Qty: 10 0RF No Action Trulicity 4.5 mg/0.5 mL pen injector 4.5 mg subcut QWEEK Qty: 2 6RF aspirin [Aspir-81] 81 mg Tablet,Delayed Release (Dr/Ec) 81 mg PO BID cyanocobalamin (vitamin B-12) Tablet,Chewable 1 tab PO DAILY magnesium gluconate 12.5 mg magne- sium (250 mg) Tablet 250 mg PO DAILY losartan-hydrochlorothiazide 100-12.5 mg tablet 1 tab PO DAILY Qty: 90 3RF lovastatin 20 mg tablet 20 mg PO QHS Qty: 90 3RF metformin 500 mg tablet extended release 24 hr 500 mg PO BID Qty: 180 3RF multivitamin Tablet 1 tab PO DAILY Qty: 90 3RF omeprazole 20 mg capsule,delayed release(DR/EC) 20 mg PO DAILY Qty: 90 3RF potassium citrate 99 mg capsule 99 mg PO DAILY Qty: 90 3RF insulin aspart U-100 [Novolog FlexPen U-100 Insulin] 100 unit/mL (3 mL) insulin pen 25 unit subcut TID 90 Days Qty: 67.5 5RF Lantus Solostar U-100 Insulin 100 unit/mL (3 mL) insulin pen 60 unit subcut BID 90 Days Qty: 108 5RF levothyroxine 200 mcg tablet 200 mcg PO DAILY Qty: 90 1RF (DME) FreeStyle Mary Ann 14 Day Sensor Kit See Rx Instructions .ROUTE .MEDSUPPLY Qty: 2 3RF Rx Instructions: As directed Primary Care Provider: Allison Gomez Referrals: Allison Gomez MD [Primary Care Provider] - 5-7 Days Disposition Disposition: Home, Self Care
[2022-12-10 14:56] LABS: Bacteria 1+ /hpf (None Seen); Squamous Epithelial Cells - UA 0-5 SEEN /hpf (5-10); White Blood Cells 0-5 SEEN /hpf (0-5)
--- NOTE | 2022-12-10 14:59 | CT_ITS ---
STUDY: CT ABDOMEN AND PELVIS WITHOUT CONTRAST REASON FOR EXAM: Female, 71 years old. Right flank pain. History of kidney stones. RADIATION DOSAGE (If Supplied By Facility): CTDIvol = ( 22.68 ) mGy, DLP = ( 1213.62 ) mGycm TECHNIQUE: Transaxial images were obtained from the dome of the diaphragm to the symphysis pubis without oral contrast, and without intravenous contrast. Sagittal and coronal images were reconstructed. Individualized dose optimization techniques were used for this CT. COMPARISON: Comparison is made with prior examination dated October 27, 2021. FINDINGS: The visualized lung bases are unremarkable. Coronary artery calcification. Normal liver. There are surgical clips in the gallbladder fossa consistent with a prior cholecystectomy. Normal spleen. Normal pancreas. Normal bilateral adrenal glands. Normal right kidney. Normal left kidney. Normal visualized stomach. Normal small intestine. There are scattered colonic diverticula consistent with diverticulosis. The appendix is visualized and appears normal. There is scattered atherosclerotic calcification of the abdominal aorta, without a demonstrated aneurysm. Normal inferior vena cava. There are small retroperitoneal lymphadenopathy. Normal urinary bladder. There is absence of the uterus consistent with a prior hysterectomy. Normal abdominal wall. There are degenerative changes of the visualized lumbar spine. CT/Abdomen/Pelvis without Cont IMPRESSION: No acute abnormality is seen. Electronically Signed: Heriberto Polanco MD at 15:42 EDT ,
[2022-12-10] MEDS: Morphine 4 MG/ML Syringe IV (15:08)
[2022-12-10] MEDS: 0.9% Normal Saline (1000mL) 1,000 ML 1000 ML IV (15:08)
[2022-12-10 15:20] LABS: Absolute Lymphocyte Count 2.36 X10^3/uL (0.83-4.51); Absolute Neutrophil Count 5.7 X10^3/uL (2.0-7.7); Basophil# 0.04 X10^3/uL; Basophil% 0.4 % (0-1); Eosinophil# 0.17 X10^3/uL; Eosinophils% 1.9 % (0-5); Hematocrit 42.3 % (37-47); Hemoglobin 11.4 g/dL (12.0-15.0); Lymphocyte # 2.36 X10^3/ul (0.83-4.51); Lymphocyte % 26.2 % (19-41); Mean Corpuscular Volume 96.6 fL (81-99); Mean Platelet Vol. 10.4 fl (6.2-12.0); Monocyte# 0.64 X10^3/uL; Monocyte% 7.1 % (0-10); NRBC Flagged by Analyzer 0 % (0-5); Neutrophil # 5.74 X10^3/uL (2.7-7.7); Neutrophil % 63.8 % (47-70); POSITIVE MORPHOLOGY YES; Platelet Count 243 K/mm3 (150-450); RBC Distribution Width CV 14.3 % (11.6-14.6); RBC Distribution Width SD 51.1 fl (35.1-43.9); Red Blood Count 4.38 M/mm3 (4.2-5.4)
[2022-12-10 15:32] LABS: ALB/GLOB Ratio 0.8 RATIO (0.9-2.4); AST(SGOT) 24 U/L (15-37); Alanine Aminotransfer ALT/SGPT 28 U/L (13-56); Alkaline Phosphatase 76 U/L (45-117); Anion Gap 5 (5-15); BUN 20 mg/dL (7-18); BUN/Creat Ratio 15.7 RATIO (10-20); Calcium,Total 9.1 mg/dL (8.5-10.1); Chloride 105 mmol/L (98-107); Creatinine, Serum 1.27 mg/dL (0.55-1.02); EST Glomerular Filtration Rate 44 mL/min (>60); Est Glom Filt Rate - Afr Amer 54 mL/min (>60); Globulin 3.9 g/dL (2.2-4.2); Glucose 243 mg/dL (74-106); Lipase 63 U/L (13-75); Potassium 4.2 mmol/L (3.5-5.1); Protein, Total 6.9 g/dL (6.4-8.2); Sodium Level 137 mmol/L (136-145)
[2022-12-10 15:39] LABS: Differential Indicated SCAN CRITERIA MET
[2022-12-10 15:48] LABS: Anisocytosis 1+; Platelet Estimate ADEQUATE (ADEQ); Red Cell Morphology N CHROM NORMAL (NORM C&C)
[2022-12-10 15:49] LABS: Macrocytosis 1+; Ovalocyte RARE
== END 2022-12-10 16:34 | disposition home or self-care (01) ==
PROVIDERS: Emergency Provider Emergency Medicine; PCP Internal Medicine; Visit Provider Emergency Medicine
DX: R10.9 Unspecified abdominal pain (principal); E66.01 Morbid (severe) obesity due to excess calories; E11.9 Type 2 diabetes mellitus without complications; Z79.4 Long term (current) use of insulin; E78.5 Hyperlipidemia, unspecified; I10 Essential (primary) hypertension; Z79.899 Other long term (current) drug therapy; Z79.84 Long term (current) use of oral hypoglycemic drugs; K21.9 Gastro-esophageal reflux disease without esophagitis; Z79.82 Long term (current) use of aspirin; Z79.85 Long-term (current) use of injectable non-insulin antidiabetic drugs; Z90.710 Acquired absence of both cervix and uterus; Z90.49 Acquired absence of other specified parts of digestive tract; R30.0 Dysuria
CPT/HCPCS: 99281; 74176; 80053; 81001; 83690; 85025; 87077; 87086; 87088; 87186; 99282; J7030

== ENCOUNTER → 2022-12-10 | Outpatient (CLI) | payer MEDICARE, SELFPAY ==
[2022-12-10 15:39] LABS: Mucous, Urine 0 SEEN /hpf (<or=2+); Red Blood Cells-Urine 0 SEEN /hpf (0-5); Squamous Epithelial Cells - UA 0 SEEN /hpf (5-10)
[2022-12-10 16:03] LABS: Color, Urine Yellow (Yellow); Glucose, Dipstick 100 mg/dl (Normal); Ketone-Dipstick Negative (Negative); Leukocyte Esterase-Dipstick 25 /ul (Negative); Nitrite-Dipstick Negative (Negative); Occult Blood-Urine Negative /ul (Negative); Protein-Dipstick 15 mg/dl (Negative); Specific Gravity, Urine 1.015 (1.002-1.030); Urine Bilirubin Dipstick Negative (Negative); Urine Clarity Clear (Clear); Urine Urobilinogen Normal (Normal)
[2022-12-10 16:17] LABS: Bacteria 1+ /hpf (None Seen); White Blood Cells 0-5 SEEN /hpf (0-5)
== END | disposition home or self-care (01) ==
LOC: LABSPEC 15:03
PROVIDERS: PCP Internal Medicine; Referring Provider Physician Assistant Surgical; Visit Provider Physician Assistant Surgical
DX: R30.0 Dysuria (principal)
CPT/HCPCS: 81001; 87086

== ENCOUNTER → 2022-12-17 | Outpatient (CLI) | payer MEDICARE, SELFPAY ==
[2022-12-17 12:32] LABS: Mucous, Urine 0 SEEN /hpf (<or=2+); Red Blood Cells-Urine 0 SEEN /hpf (0-5)
[2022-12-17 13:32] LABS: Color, Urine Yellow (Yellow); Glucose, Dipstick 100 mg/dl (Normal); Ketone-Dipstick 5 mg/dl (Negative); Leukocyte Esterase-Dipstick 500 /ul (Negative); Nitrite-Dipstick Positive (Negative); Occult Blood-Urine 10 /ul (Negative); Protein-Dipstick 15 mg/dl (Negative); Urine Bilirubin Dipstick Negative (Negative); Urine Clarity Sl. Cloudy (Clear); Urine Urobilinogen Normal (Normal)
[2022-12-17 13:45] LABS: White Blood Cells >100 SEEN /hpf (0-5)
[2022-12-17 13:46] LABS: Bacteria 2+ /hpf (None Seen); Squamous Epithelial Cells - UA 0-5 SEEN /hpf (5-10)
== END | disposition home or self-care (01) ==
LOC: LAB 12:28
PROVIDERS: PCP Internal Medicine; Referring Provider Internal Medicine; Visit Provider Internal Medicine
DX: R10.9 Unspecified abdominal pain (principal); N30.01 Acute cystitis with hematuria
CPT/HCPCS: 81001

== ENCOUNTER 2022-12-29 08:32 | Emergency (ER) | payer MEDICARE, SELFPAY ==
[2022-12-29 08:33] VITALS: BP 193/83; PULSE 67; RESP 20; TEMP 36.2; O2SAT 100; BMI 45.9
--- NOTE | 2022-12-29 08:49 | EKG12_ITS ---
Test Reason : SOB CP Blood Pressure : / mmHG Vent. Rate : 066 BPM Atrial Rate : 066 BPM P-R Int : 182 ms QRS Dur : 086 ms QT Int : 416 ms P-R-T Axes : 034 -28 031 degrees QTc Int : 436 ms Normal sinus rhythm Cannot rule out Anterior infarct , age undetermined Abnormal ECG Confirmed by RENETTA COLLINS, ABRAHAN ([id number]), subeditor TIM SOLORIO ([id number]) on 12/31/2022 1:56:11 PM Referred By: OLGA Confirmed By:ABRAHAN JACKSON MD
--- NOTE | 2022-12-29 08:49 | RAD_ITS ---
STUDY: X-RAY CHEST REASON FOR EXAM: Female, 72 years old. Chest pain. TECHNIQUE: Frontal and lateral views of the chest. COMPARISON: May 25, 2018. FINDINGS: Stable cardiomegaly with aortic tortuosity and calcification. Mild elevation of the right hemidiaphragm, unchanged. Diffuse thoracic spondylosis unchanged . No abnormality of the visualized soft tissue structures of the upper abdomen. RAD/Chest PA and Lateral IMPRESSION: Stable cardiomegaly with no acute or active cardiopulmonary disease. Electronically Signed: Eduardo Hinojosa MD at 9:23 EDT ,
[2022-12-29 08:52] VITALS: PULSE 64; RESP 16; O2SAT 98
[2022-12-29 08:53] VITALS: O2SAT 99
--- NOTE | 2022-12-29 08:56 | EX.ED.DYSGE1 ---
HPI History of Present Illness Chief Complaint: Shortness of Breath Informant: patient Onset/Context/Timing Onset: Weeks (2) Context: Gradual Onset Timing: Continuous Quality: Stabbing Location: Right shoulder and scapular area Worsened by: Movement, breathing Relieved by: Nothing Narrative Narrative: Patient presents with right shoulder pain that has been getting worse over the past 2 weeks. Patient describes it as stabbing. Patient states it is worse with movement and breathing. Patient denies any shortness of breath however. Patient denies any cough. Patient denies any fevers or chills. Patient states it radiates into her right scapular area. Patient denies any ripping or tearing sensation. Patient admits to some nausea but denies any vomiting. [facility] Medical History Alcohol use Arthritis Asthma BiPAP (biphasic positive airway pressure) dependence Cancer Chronic cough Diabetes Diarrhea Dietary restriction Easy bruising GERD (gastroesophageal reflux disease) Hemorrhoids History of colon polyps History of diverticulitis History of echocardiogram History of edema History of stress test HTN (hypertension) Hyperlipidemia Kidney disease Leg cramps Low back pain Non-smoker Obesity ANISHA (obstructive sleep apnea) Pyelonephritis Restless legs Shortness of breath on exertion Shoulder pain Urinary urgency Wears dentures Wears glasses Home Medications losartan 100 mg-hydrochlorothiazide 12.5 mg tablet 1 tab PO DAILY HTN #90 tabs 02/16/22 [Rx Last Taken Unknown] lovastatin 20 mg tablet 20 mg PO QHS cholesterol #90 tabs 02/16/22 [Rx Last Taken Unknown] metformin 500 mg tablet,extended release 24 hr 500 mg PO BID #180 tabs 02/16/22 [Rx Last Taken Unknown] multivitamin 1 tab PO DAILY #90 tabs 02/16/22 [Rx Last Taken Unknown] omeprazole 20 mg capsule,delayed release 20 mg PO DAILY GERD #90 caps 02/16/22 [Rx Last Taken Unknown] potassium citrate 99 mg capsule 99 mg PO DAILY #90 caps 02/16/22 [Rx Last Taken Unknown] insulin aspart U-100 100 unit/mL (3 mL) subcutaneous pen (Novolog FlexPen U-100 Insulin aspart) 25 unit (0.25 mL) subcut TID 90 days #67.5 mL 05/04/22 [Rx Last Taken Unknown] aspirin 81 mg tablet,delayed release 81 mg PO BID 06/03/22 [History Last Taken Unknown] cyanocobalamin (vitamin B-12) 1 tab PO DAILY 06/03/22 [History Last Taken Unknown] magnesium gluconate 12.5 mg magnesium (250 mg) tablet 250 mg PO DAILY 06/03/22 [History Last Taken Unknown] levothyroxine 200 mcg tablet 200 mcg PO DAILY #90 tabs 08/05/22 [Rx Last Taken Unknown] flash glucose sensor (FreeStyle [place] 14 Day Sensor kit) #2 ea 11/09/22 [Rx Last Taken Unknown] Trulicity 4.5 mg/0.5 mL subcutaneous pen injector (dulaglutide) 4.5 mg (0.5 mL) subcut QWEEK #2 mL 11/26/22 [Rx Last Taken Unknown] hydrocodone-acetaminophen 5-325mg 5mg-325mg 1 tab PO Q6H PRN PRN Pain 3 days #10 TABLETS 12/10/22 [Rx Last Taken Unknown] celecoxib 200 mg capsule (Celebrex) 200 mg PO DAILY #5 caps 12/24/22 [Rx Last Taken Unknown] cyclobenzaprine 10 mg tablet 10 mg PO TID PRN muscle spasm #20 tabs 12/24/22 [Rx Last Taken Unknown] insulin glargine 100 unit/mL (3 mL) subcutaneous pen (Lantus Solostar U-100 Insulin) 56 unit subcut DAILY 12/24/22 [History Last Taken Unknown] tramadol 50 mg tablet 50 mg PO Q6H PRN PRN Pain 3 days #20 tabs 12/29/22 [Rx Last Taken Unknown] Allergy/AdvReac Type Severity Reaction Status Date / Time ciprofloxacin [From Cipro] Allergy Mild Rash Verified 12/28/22 09:57 ondansetron HCl Allergy Rash Verified 12/28/22 09:57 [From Zofran (as hydrochloride)] oxycodone HCl [From Percocet] Allergy Rash Verified 12/28/22 09:57 Penicillins [PCN] Allergy Other Verified 12/28/22 09:57 propoxyphene napsylate Allergy Rash Verified 12/28/22 09:57 [From Darvocet-N 100] nickel AdvReac Intermediate Rash Verified 12/28/22 09:57 Family History Father Colon cancer Myocardial infarction Diabetes Hypertension Hyperlipemia Grandmother No problems noted. Mother Colon cancer Cancer Heart disease CVA (cerebral vascular accident) Diabetes Thyroid disorder Hypertension Myocardial infarction Hyperlipemia Brother Colon cancer Unknown Breast cancer 2 cousins Uncle Colon cancer Surgical History H/O: hysterectomy History of cholecystectomy History of colonoscopy (~08/14/19) History of esophagogastroduodenoscopy (EGD) History of laparoscopy History of oral surgery S/P colonoscopy S/P hysterectomy S/P wrist surgery Status post laparoscopic cholecystectomy Stone, kidney Social History Smoking Status: Never smoker second hand exposure: No alcohol intake: current alcohol intake frequency: holidays/special occasions only substance use type: does not use caffeine: Yes what type of physical activity do you participate in: none frequency: does not exercise ROS ROS ED Constitutional Constitutional ED: Denies chills or fever(s) Eyes Eyes: Denies blurry vision or change in vision ENT ENT ED: Denies rhinorrhea or sore throat Cardiovascular Cardiovascular: Denies chest pain or palpitations Respiratory/Chest Respiratory/Chest: Denies cough or dyspnea Gastrointestinal Gastrointestinal: Reports nausea; Denies vomiting Genitourinary Genitourinary ED: Denies dysuria or hematuria Musculoskeletal Musculoskeletal: Denies back pain or neck pain Integumentary Denies abscess or rash Neurologic Neurologic: Denies headache(s) or weakness Allergic/Immunologic Allergic/Immunologic ED: Denies mouth swelling or urticaria EXAM Physical Exam Const Vital Signs: 12/29/22 08:33 12/29/22 08:52 12/29/22 08:52 Temperature 97.2 F L Temperature Source Temporal Pulse Rate 67 64 Respiratory Rate 20 H 16 Respiratory Effort Short of Breath Blood Pressure 193/83 H Blood Pressure Mean 119 Pulse Ox 100 98 Oxygen Delivery Method Room Air 12/29/22 08:53 Temperature Temperature Source Pulse Rate Respiratory Rate Respiratory Effort Short of Breath Blood Pressure Blood Pressure Mean Pulse Ox Oxygen Delivery Method Room Air Positive well nourished, well developed and obese General Appearance ED: well developed and NAD Nutritional Appearance: obese HEENT Reports moist mucous membranes Neck supple and no JVD Resp normal respiratory effort and clear to auscultation bilaterally Cardio regular rate and regular rhythm GI non-tender and non-distended Palpation: soft Extremity normal to inspection Extremity Narrative: There is mild tenderness over the right shoulder. There is tenderness and spasm of the right trapezius muscle. There is no deformity noted. Range of motion was limited in all motions of the right shoulder secondary to pain. General Extremety ED: Negative for tenderness Neuro oriented x3, CN's II-XII intact bilaterally and no sensory deficits noted Sensorium / Orientation: alert Motor Exam: strength 5/5 throughout MDM MDM MDM Narrative Medical decision making narrative: Differential diagnosis includes pneumonia, pneumothorax, pleurisy, aortic dissection, pulmonary embolism, cardiac dysrhythmia, cardiac ischemia, and musculoskeletal pain EKG will be obtained to assess for cardiac dysrhythmia and cardiac ischemia. Chest x-ray will be obtained to assess for pneumonia, pneumothorax, and widened mediastinum. CBC will be obtained to assess for leukocytosis and anemia. Basic metabolic profile will be obtained to assess for electrolyte abnormality and renal function. D-dimer will be obtained to assess for pulmonary embolism and aortic dissection. High-sensitivity troponin will be obtained to assess for cardiac ischemia. Urinalysis will be obtained to assess for urinary tract infection. History & Record Review Discussion w/independent historian: Patient and Family Additional record(s) reviewed:: Prior labs Lab Data Attestation: I reviewed the patient's lab results. Lab results narrative: CBC was reviewed. There is a stable anemia with hemoglobin of 11.8. Platelets were normal. Basic metabolic profile was reviewed. Creatinine was slightly elevated at 1.36. Anion gap was normal. Glucose was slightly elevated at 213. Remainder is within normal limits. High-sensitivity troponin was reviewed and was normal at 8. D-dimer was reviewed and was elevated at 0.77. Urinalysis was reviewed. There is a leukocyte esterase of 100 with 5-10 white blood cells but 10-25 epithelial cells. Labs: Laboratory Results - last 24 hr 12/29/22 12/29/22 08:50 09:41 WBC 8.2 RBC 4.63 Hgb 11.8 L Hct 39.4 MCV 85.1 MCH 25.5 L MCHC 29.9 L RDW Std Deviation 43.9 RDW Coeff of [place] 14.3 Plt Count 287 MPV 9.9 Immature Gran % (Auto) 0.500 Neut % (Auto) 61.4 Lymph % (Auto) 27.2 [place] % (Auto) 7.7 Eos % (Auto) 2.8 Baso % (Auto) 0.4 Absolute Neuts (auto) 5.0 Absolute Lymphs (auto) 2.22 Nucleated RBC % 0 D-Dimer Quant (PE/DVT) 0.77 H* Sodium 138 Potassium 4.6 Chloride 107 Carbon Dioxide 28.0 Anion Gap 3 L BUN 14 Creatinine 1.36 H Estim Creat Clear Calc 33.24 Est GFR (MDRD) Af Amer 49 L Est GFR (MDRD) Non-Af 41 L BUN/Creatinine Ratio 10.3 Glucose 213 H Calcium 9.5 Troponin I High Sens 8 Urine Color Yellow Urine Clarity Clear Urine pH 6.0 Ur Specific [place] 1.020 Urine Protein 15 H Urine Glucose (UA) 100 H Urine Ketones Negative Urine Occult Blood Negative Urine Nitrite Negative Urine Bilirubin Negative Urine Urobilinogen Normal Ur Leukocyte Esterase 100 H Urine RBC 0 SEEN Urine WBC 5-10 SEEN Ur Squamous Epith Cells 10-25 SEEN Urine Bacteria 0 SEEN Urine Mucus 0 SEEN Radiography Chest X-Ray - ED: 2 View, Read by ED Physician, Read by Radiologist and No Acute Disease CTA PE Study: No Evidence of PE and No Evidence of Dissection Diagnostic Testing: Clinical Impression(s) from Imaging Studies Chest X-Ray 12/29/22 08:49 IMPRESSION: Stable cardiomegaly with no acute or active cardiopulmonary disease. Electronically Signed: Eduardo Hinojosa MD at 9:23 EDT , Chest CTA 12/29/22 09:43 IMPRESSION: No demonstrated pulmonary embolism or arterial dissection. Minimal bilateral atelectasis. Atherosclerosis. Electronically Signed: Xuan Pierce MD at 10:51 EDT , PA and lateral chest x-ray was obtained. There are 2 views. On my independent interpretation, lung mack are clear. There is normal cardiac silhouette. Bony thorax is normal. There is no acute process noted. Radiologist also interpreted the x-ray and agrees. Because of the elevated D-dimer, CTA of the chest was obtained. There is no pulmonary embolism or aortic dissection. There is bilateral atelectasis. This was interpreted by the radiologist and was also independently reviewed by myself. EKG Initial EKG: Attestation: I personally reviewed and interpreted this EKG as follows: Interpretation: Sinus Rhythm (66) and Non-Specific ST Changes Comments: EKG was obtained. On my independent interpretation, it showed a normal sinus rhythm with a rate of 66. MI interval, QRS interval, and QTc intervals were all normal. There is left axis deviation at -28. There are nonspecific ST-T wave changes. Prior EKG tracings: available for review Prior: Unchanged (05/05/2022) Treatment and Re-Evaluation :: Patient was given IV fluids. Patient was given a dose of morphine initially. Patient had minimal relief with this. Patient was given a dose of Dilaudid. Patient was advised of her findings. Patient was advised that this could be pleurisy or musculoskeletal pain. Patient was instructed to follow-up with her primary care physician in 5 to 7 days for reevaluation. Patient was instructed return to the emergency department if worse in any way. Patient was given a prescription for Timnath on her previous visit and stated that this did not help with her pain. Therefore, patient was given a prescription for tramadol. Patient and family understood and were agreeable with the plan. All questions were answered. Discharge Plan Triage Chief Complaint: Shortness of Breath Other Complaint: Chest Pain ED Provider: Mele Small Dx/Rx/DC Orders Clinical Impression: Shoulder pain, Pleurisy Instructions: ED Pain, Acute, Uncertain Cause, ED Pleurisy Prescriptions: New tramadol 50 mg tablet 50 mg PO Q6H PRN PRN (Reason: Pain) 3 Days Qty: 20 0RF No Action Trulicity 4.5 mg/0.5 mL pen injector 4.5 mg subcut QWEEK Qty: 2 6RF Lantus Solostar U-100 Insulin 100 unit/mL (3 mL) insulin pen 56 unit subcut DAILY celecoxib [Celebrex] 200 mg capsule 200 mg PO DAILY Qty: 5 0RF cyclobenzaprine 10 mg tablet 10 mg PO TID PRN (Reason: muscle spasm) Qty: 20 0RF aspirin [Aspir-81] 81 mg Tablet,Delayed Release (Dr/Ec) 81 mg PO BID cyanocobalamin (vitamin B-12) Tablet,Chewable 1 tab PO DAILY magnesium gluconate 12.5 mg magne- sium (250 mg) Tablet 250 mg PO DAILY hydrocodone-acetaminophen [hydrocodone-acetaminophen] 5-325 mg tablet 1 tab PO Q6H PRN PRN (Reason: Pain) 3 Days Qty: 10 0RF losartan-hydrochlorothiazide 100-12.5 mg tablet 1 tab PO DAILY Qty: 90 3RF lovastatin 20 mg tablet 20 mg PO QHS Qty: 90 3RF metformin 500 mg tablet extended release 24 hr 500 mg PO BID Qty: 180 3RF multivitamin Tablet 1 tab PO DAILY Qty: 90 3RF omeprazole 20 mg capsule,delayed release(DR/EC) 20 mg PO DAILY Qty: 90 3RF potassium citrate 99 mg capsule 99 mg PO DAILY Qty: 90 3RF insulin aspart U-100 [Novolog FlexPen U-100 Insulin] 100 unit/mL (3 mL) insulin pen 25 unit subcut TID 90 Days Qty: 67.5 5RF levothyroxine 200 mcg tablet 200 mcg PO DAILY Qty: 90 1RF (DME) FreeStyle Mary Ann 14 Day Sensor Kit See Rx Instructions .ROUTE .MEDSUPPLY Qty: 2 3RF Rx Instructions: As directed Primary Care Provider: Allison Gomez Referrals: Allison Gomez MD [Primary Care Provider] - 3-5 Days Disposition Disposition: Home, Self Care
[2022-12-29 09:05] LABS: Absolute Lymphocyte Count 2.22 X10^3/uL (0.83-4.51); Basophil# 0.03 X10^3/uL; Basophil% 0.4 % (0-1); Eosinophil# 0.23 X10^3/uL; Eosinophils% 2.8 % (0-5); Hematocrit 39.4 % (37-47); Hemoglobin 11.8 g/dL (12.0-15.0); Lymphocyte # 2.22 X10^3/ul (0.83-4.51); Lymphocyte % 27.2 % (19-41); Mean Corp Hgb Conc 29.9 g/dL (32-36); Mean Corpuscular Hgb 25.5 pg (27.0-32.0); Mean Corpuscular Volume 85.1 fL (81-99); Mean Platelet Vol. 9.9 fl (6.2-12.0); Monocyte# 0.63 X10^3/uL; Monocyte% 7.7 % (0-10); NRBC Flagged by Analyzer 0 % (0-5); Neutrophil % 61.4 % (47-70); Platelet Count 287 K/mm3 (150-450); RBC Distribution Width CV 14.3 % (11.6-14.6); RBC Distribution Width SD 43.9 fl (35.1-43.9); Red Blood Count 4.63 M/mm3 (4.2-5.4); White Blood Count 8.2 K/mm3 (4.4-11.0)
[2022-12-29 09:27] LABS: Anion Gap 3 (5-15); BUN 14 mg/dL (7-18); BUN/Creat Ratio 10.3 RATIO (10-20); Calcium,Total 9.5 mg/dL (8.5-10.1); Chloride 107 mmol/L (98-107); Creatinine, Serum 1.36 mg/dL (0.55-1.02); EST Glomerular Filtration Rate 41 mL/min (>60); Est Glom Filt Rate - Afr Amer 49 mL/min (>60); Estimated Creatinine Clearance 33.24 ml/min; Glucose 213 mg/dL (74-106); Potassium 4.6 mmol/L (3.5-5.1); Sodium Level 138 mmol/L (136-145); Troponin-I HS 8 pg/mL (3.0-54.0)
[2022-12-29] MEDS: Morphine 4 MG/ML Syringe IV (09:28)
[2022-12-29 09:31] LABS: D-Dimer Quantitative (DVT/PE) 0.77 FEU/ug/m (0.27-0.49)
--- NOTE | 2022-12-29 09:43 | CT_ITS ---
STUDY: CTA CHEST REASON FOR EXAM: Female, 72 years old. Elevated D-dimer RADIATION DOSAGE (If Supplied By Facility): CTDIvol = ( 10.02 ) mGy, DLP = ( 763.10 ) mGycm TECHNIQUE: The examination was performed with the intravenous administration of IV 100mL Isovue-370. Post-processing of the angiographic images was performed, with multiplanar reformation and 3D reconstruction. Individualized dose optimization techniques were used for this CT. COMPARISON: CT of the abdomen and pelvis dated December 10, 2022 FINDINGS: Normal enhancement of the main pulmonary artery and right and left pulmonary arteries. Normal enhancement of the bilateral peripheral pulmonary arteries. There is no demonstrated pulmonary embolism. There is atherosclerotic calcification of the aortic arch. There is no demonstrated aortic dissection. There are calcifications of the coronary arteries. Normal mediastinum. Normal hilar regions. Normal visualized trachea and bronchi. There is minimal stable bibasilar atelectasis. There is minimal bilateral dependent atelectasis as well. Normal chest wall structures. There are degenerative changes of thoracic spine. Normal visualized upper abdomen. CT/CTA Chest W/WO Contrast IMPRESSION: No demonstrated pulmonary embolism or arterial dissection. Minimal bilateral atelectasis. Atherosclerosis. Electronically Signed: Xuan Pierce MD at 10:51 EDT ,
[2022-12-29 09:50] LABS: Bacteria 0 SEEN /hpf (None Seen); Mucous, Urine 0 SEEN /hpf (<or=2+); Red Blood Cells-Urine 0 SEEN /hpf (0-5)
[2022-12-29 09:52] LABS: Color, Urine Yellow (Yellow); Glucose, Dipstick 100 mg/dl (Normal); Ketone-Dipstick Negative (Negative); Leukocyte Esterase-Dipstick 100 /ul (Negative); Nitrite-Dipstick Negative (Negative); Occult Blood-Urine Negative /ul (Negative); Protein-Dipstick 15 mg/dl (Negative); Urine Bilirubin Dipstick Negative (Negative); Urine Clarity Clear (Clear); Urine Urobilinogen Normal (Normal)
[2022-12-29 10:08] LABS: Squamous Epithelial Cells - UA 10-25 SEEN /hpf (5-10); White Blood Cells 5-10 SEEN /hpf (0-5)
[2022-12-29] MEDS: 0.9% Normal Saline (1000mL) 1,000 ML 1000 ML IV (10:41)
[2022-12-29] MEDS: HYDROmorphone 1 MG/ML Syringe 0.5 MG IV (11:51)
[2022-12-29 12:15] VITALS: BP 138/76; PULSE 76; RESP 18
== END 2022-12-29 12:18 | disposition home or self-care (01) ==
PROVIDERS: Emergency Provider Emergency Medicine; PCP Internal Medicine; Visit Provider Emergency Medicine
DX: M25.511 Pain in right shoulder (principal); E11.9 Type 2 diabetes mellitus without complications; Z79.4 Long term (current) use of insulin; E78.5 Hyperlipidemia, unspecified; I10 Essential (primary) hypertension; R09.1 Pleurisy; Z79.899 Other long term (current) drug therapy; Z79.84 Long term (current) use of oral hypoglycemic drugs; K21.9 Gastro-esophageal reflux disease without esophagitis; Z79.82 Long term (current) use of aspirin; Z79.85 Long-term (current) use of injectable non-insulin antidiabetic drugs; Z90.710 Acquired absence of both cervix and uterus; Z90.49 Acquired absence of other specified parts of digestive tract
CPT/HCPCS: 71046; 71275; 80048; 81001; 84484; 85025; 85379; 93005; 96361; 96374; 96375; 99285; J7030; Q9967; A4216

== ENCOUNTER 2023-02-04 17:14 | Emergency (ER) | payer MEDICARE, SELFPAY ==
[2023-02-04 17:15] VITALS: BP 183/77; PULSE 72; RESP 16; TEMP 36.9; O2SAT 100; BMI 48.3
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
[2023-02-04] MEDS: oxyCODONE 5 MG Tablet PO (17:50)
[2023-02-04] MEDS: Ibuprofen 200 MG Tablet 400 MG PO (17:50)
[2023-02-04 18:55] VITALS: BP 171/80; RESP 16
== END 2023-02-04 18:56 | disposition home or self-care (01) ==
PROVIDERS: Emergency Provider Emergency Medicine; PCP Internal Medicine; Visit Provider Emergency Medicine
DX: T20.19XA Burn of first degree of multiple sites of head, face, and neck, initial encounter (principal); E11.9 Type 2 diabetes mellitus without complications; Z79.4 Long term (current) use of insulin; E78.5 Hyperlipidemia, unspecified; I10 Essential (primary) hypertension; E03.9 Hypothyroidism, unspecified; T21.11XA Burn of first degree of chest wall, initial encounter; Z79.899 Other long term (current) drug therapy; Z79.84 Long term (current) use of oral hypoglycemic drugs; K21.9 Gastro-esophageal reflux disease without esophagitis; Z79.82 Long term (current) use of aspirin; Z79.85 Long-term (current) use of injectable non-insulin antidiabetic drugs; Z90.710 Acquired absence of both cervix and uterus; Z90.49 Acquired absence of other specified parts of digestive tract; X12.XXXA Contact with other hot fluids, initial encounter; Y93.G3 Activity, cooking and baking
CPT/HCPCS: 99284

== ENCOUNTER → 2023-03-10 | Outpatient (CLI) | payer MEDICARE, SELFPAY | END | disposition home or self-care (01) | LOC: LABSPEC 15:14 | PROVIDERS: PCP Internal Medicine; Referring Provider Physician Assistant Surgical; Visit Provider Physician Assistant Surgical | DX: N30.01 Acute cystitis with hematuria (principal) | CPT/HCPCS: 87086; 87088 ==

== ENCOUNTER → 2023-05-06 | Outpatient (CLI) | payer OTHER, SELFPAY ==
[2023-05-06 11:08] LABS: Mucous, Urine 0 SEEN /hpf (<or=2+); Red Blood Cells-Urine 0 SEEN /hpf (0-5); Squamous Epithelial Cells - UA 0 SEEN /hpf (5-10)
[2023-05-06 11:37] LABS: Color, Urine Yellow (Yellow); Glucose, Dipstick 250 mg/dl (Normal); Ketone-Dipstick Negative (Negative); Leukocyte Esterase-Dipstick 25 /ul (Negative); Nitrite-Dipstick Negative (Negative); Occult Blood-Urine Negative /ul (Negative); Protein-Dipstick Negative (Negative); Specific Gravity, Urine 1.015 (1.002-1.030); Urine Bilirubin Dipstick Negative (Negative); Urine Clarity Cloudy (Clear); Urine Urobilinogen Normal (Normal)
--- OUTSIDE RECORDS SUMMARY | 2023-05-06 11:44 | XMS RPT_ITS | CCD ---
Author Name Unknown Address [address] [place] [address] Organization [facility] Results Test Name Value Interpretation Reference Range Facil ity Clinical Note 01-10-2021 Note Date & Type Note Facility 01-10-2021 Note Patient Outreach (DERIK DIAZ) NIMO MCCLOUD ([id number]) 1950 F Date Time Provider Department 01/10/21 CATIE WARREN During your visit today, we recorded the following information about you: Catie Warren Population Health Navigator 01/10/2021 8:56 AM Signed POPULATION HEALTH NAVIGATION OUTREACH Action/FYI I left a voice message and a my chart message re: pcp No care everywhere Contact made with patient or family member? NO Pt identified by name and : NO Outreach Outcome/Action Unable to reach patient: Left message AppRedeemt message sent Reason for Outreach Attribution: Provider Off-boarding Payer: Payor: MEDICARE / Plan: MEDICARE A AND B / Product Type: Medicare / Care Gap Reviewed:: Reminder: Reminder note to check Health Maintenance for items below Health Maintenance items due: COVID-19 VACCINE(1) Never done SHINGRIX VACCINE(2 of 3) due on 03/22/2017 ADVANCE DIRECTIVE DISCUSSION Never done PAP TESTING due on 01/24/2019 DEPRESSION SCREENING due on 01/03/2020 URINE ALBUMIN:CREATININE RATIO due on 07/30/2020 HEMOGLOBIN/HEMATOCRIT due on 07/30/2020 HBA1C due on 10/02/2020 INFLUENZA(1) due on 11/13/2020 Advanced Directives Completed: Have you ever planned for future healthcare decisions with a power of purchasing administrator, living will, or advance directives? No. Please bring a copy to your next appointment or email to [email or web address] Referrals: N/A Message Sent to Practice: NO Navigation Signature: Catie Warren Population Health Navigator January 10, 2021 8:56 AM Allergies As of Date: 01/10/2021 Noted Allergy Reaction ACETAMINOPHEN 01/06/2002 2 - Rash AMOXICILLIN 01/06/2002 Comments: yeast and rash DARVOCET A500 (PROPOXYPHENE N-DOUGLAS* 2 - Rash GABAPENTIN 12/21/2016 8 - GI Upset Comments: Difficulty focusing, and GI upset MELOXICAM 05/12/2016 4 - Hives OXYCODONE 01/06/2002 2 - Rash QUINAPRIL 01/06/2002 Comments: uncertain SEASONAL ALLERGIES 04/23/2015 16 - Unknown Comments: Dust mites verified by skin testing SHELLFISH CONTAINING PRODUCTS 05/13/2015 4 - Hives Comments: Hives within 20 minutes of eating shrimp ZOFRAN (ONDANSETRON) 04/10/2014 14 - Other: See Comments Comments: Headache Date Reviewed: 04/22/2020 Reviewed by: Meghan Burk - Fully Assessed Reason for Visit: Population Health Navigation Outreach [3910] Cmt: Offboarding Prescriptions as of 01/10/2021 - losartan (COZAAR) 100 mg tablet Take 1 tablet by mouth once daily. - FREESTYLE TY 10 DAY SENSOR kit 1 Each every 10 days. - levothyroxine (SYNTHROID) 300 mcg tablet Take 1 tablet by mouth daily before breakfast. - dulaglutide (TRULICITY) 1.5 mg/0.5 mL pen injector Inject 1.5 mg subcutaneously one time a week. Inject once per week. Discard Pen After - semaglutide (OZEMPIC) 1 mg/0.75 ml subcutaneous pen injector Inject 1 mg subcutaneously one time a week. - insulin glargine (LANTUS SOLOSTAR U-100 INSULIN) 100 unit/mL (3 mL) Inject 44 Units subcutaneously twice daily. - insulin aspart U-100 (NOVOLOG FLEXPEN U-100 INSULIN) 100 unit/mL (3 mL) Inject 25 Units subcutaneously three times daily before meals. - mometasone (ELOCON) 0.1 % ointment Apply to affected area once daily. - lovastatin (MEVACOR) 20 mg tablet Take 1 tablet by mouth daily at bedtime. - metFORMIN ER (GLUCOPHAGE XR) 500 mg 24 hr tablet Take 1 tablet by mouth twice daily. - FREESTYLE TY 10 DAY READER misc 1 Units every 8 hours. - aspirin, enteric coated (ASPIRIN, ENTERIC COATED) 81 mg EC tablet Take 81 mg by mouth once daily. - vitamin b complex tab Take 1 tablet by mouth once daily. - Cholecalciferol, Vitamin D3, 2,000 unit cap Take 1 tablet by mouth once daily. - albuterol HFA (VENTOLIN HFA) 90 mcg/actuation inhaler Inhale 2 Puffs as instructed every 4 hours as needed for Wheezing/Shortness of Breath. - CPAP - nitroglycerin sublingual (NITROSTAT) 0.4 mg SUBLINGUAL SL tablet Dissolve under the tongue. FOR CHEST PAIN. IF NO RELIEF CALL 911 Problem List As Of Date 01/10/2021 Noted Resolved BENIGN HYPERTENSION [I10] 05/18/2005 CERVICAL DISC DEGEN [M50.30] 01/31/2007 PERS HX UTERUS MALIGNANCY NEC [Z85.42] 03/28/2007 ATROPHIC VAGINITIS [N95.2] 03/28/2007 SYMPTOMATIC FEMALE CLIMACTERIC STATE [N95.1] 03/28/2007 URGE INCONTINENCE [N39.41] 03/28/2007 FEMALE STRESS INCONTINENCE [N39.3] 03/28/2007 Class 3 severe obesity due to excess calories w*03/28/2007 Personal history of colonic polyps [Z86.010] 01/20/2011 Benign neoplasm of colon [D12.6] 01/20/2011 Family history of malignant neoplasm of gastroi*01/20/2011 Stasis dermatitis [I87.2] 07/13/2011 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 [facility] Progress note 01-10-2021 Note Date & Type Note Facility 01-10-2021 Note HNO ID: [id number] Author: Catie Warren Population Health Navigator Service: ? Author Type: ? Type: Progress Notes Filed: 01/10/2021 8:56 AM Note Text: POPULATION HEALTH NAVIGATION OUTREACH Action/FYI I left a voice message and a my chart message re: pcp No care everywhere Contact made with patient or family member? NO Pt identified by name and : NO Outreach Outcome/Action Unable to reach patient: Left message AppRedeemt message sent Reason for Outreach Attribution: Provider Off-boarding Payer: Payor: MEDICARE / Plan: MEDICARE A AND B / Product Type: Medicare / Care Gap Reviewed:: Reminder: Reminder note to check Health Maintenance for items below Health Maintenance items due: COVID-19 VACCINE(1) Never done SHINGRIX VACCINE(2 of 3) due on 03/22/2017 ADVANCE DIRECTIVE DISCUSSION Never done PAP TESTING due on 01/24/2019 DEPRESSION SCREENING due on 01/03/2020 URINE ALBUMIN:CREATININE RATIO due on 07/30/2020 HEMOGLOBIN/HEMATOCRIT due on 07/30/2020 HBA1C due on 10/02/2020 INFLUENZA(1) due on 11/13/2020 Advanced Directives Completed: Have you ever planned for future healthcare decisions with a power of purchasing administrator, living will, or advance directives? No. Please bring a copy to your next appointment or email to Referrals: N/A Message Sent to Practice: NO Navigation Signature: Catie Warren Population Health Navigator January 10, 2021 8:[address] [facility] Clinical Note 12-05-2020 Note Date & Type Note Facility 12-05-2020 Note Patient Outreach (AM [facility]) NIMO MCCLOUD ([id number]) 1950 F Date Time Provider Department 12/05/20 JAYDA MENDEZ [facility] During your visit today, we recorded the following information about you: Jayda Mendez MA 12/05/2020 12:26 PM Signed POPULATION HEALTH NAVIGATION OUTREACH Action/FYI LVM Health Maintenance items due: NEEDS NEW PCP ANNUAL MEDICARE WELLNESS EXAM ADVANCE DIRECTIVE DISCUSSION Never done URINE ALBUMIN:CREATININE RATIO due on 07/30/2020 HEMOGLOBIN/HEMATOCRIT due on 07/30/2020 HBA1C due on 10/02/2020 INFLUENZA(1) due on 11/13/2020 NON SMOKER Contact made with patient or family member? NO Pt identified by name and : NO Outreach Outcome/Action Unable to reach patient: Left message Reason for Outreach Care Gap or Scheduling/Wellness visits Payer: Payor: MEDICARE / Plan: MEDICARE A AND B / Product Type: Medicare / Care Gap Reviewed:: Annual Wellness visit HBA1C Flu vaccine Reminder: Reminder note to check Health Maintenance for items below Health Maintenance items due: COVID-19 VACCINE(1) Never done SHINGRIX VACCINE(2 of 3) due on 03/22/2017 ADVANCE DIRECTIVE DISCUSSION Never done PAP TESTING due on 01/24/2019 DEPRESSION SCREENING due on 01/03/2020 URINE ALBUMIN:CREATININE RATIO due on 07/30/2020 HEMOGLOBIN/HEMATOCRIT due on 07/30/2020 HBA1C due on 10/02/2020 INFLUENZA(1) due on 11/13/2020 Advanced Directives Completed: Have you ever planned for future healthcare decisions with a power of purchasing administrator, living will, or advance directives? Referrals: N/A Message Sent to Practice: NO Navigation Signature: Jayda Mendez MA December 05, 2020 9:00 AM Allergies As of Date: 12/05/2020 Noted Allergy Reaction ACETAMINOPHEN 01/06/2002 2 - Rash AMOXICILLIN 01/06/2002 Comments: yeast and rash DARVOCET A500 (PROPOXYPHENE N-DOUGLAS* 2 - Rash GABAPENTIN 12/21/2016 8 - GI Upset Comments: Difficulty focusing, and GI upset MELOXICAM 05/12/2016 4 - Hives OXYCODONE 01/06/2002 2 - Rash QUINAPRIL 01/06/2002 Comments: uncertain SEASONAL ALLERGIES 04/23/2015 16 - Unknown Comments: Dust mites verified by skin testing SHELLFISH CONTAINING PRODUCTS 05/13/2015 4 - Hives Comments: Hives within 20 minutes of eating shrimp ZOFRAN (ONDANSETRON) 04/10/2014 14 - Other: See Comments Comments: Headache Date Reviewed: 04/22/2020 Reviewed by: Meghan Miller) Wm - Fully Assessed Reason for Visit: Population Health Navigation Outreach [3910] Cmt: MARTHA JACKSON PCSA Prescriptions as of 12/05/2020 - losartan (COZAAR) 100 mg tablet Take 1 tablet by mouth once daily. - FREESTYLE TY 10 DAY SENSOR kit 1 Each every 10 days. - levothyroxine (SYNTHROID) 300 mcg tablet Take 1 tablet by mouth daily before breakfast. - dulaglutide (TRULICITY) 1.5 mg/0.5 mL pen injector Inject 1.5 mg subcutaneously one time a week. Inject once per week. Discard Pen After - semaglutide (OZEMPIC) 1 mg/0.75 ml subcutaneous pen injector Inject 1 mg subcutaneously one time a week. - insulin glargine (LANTUS SOLOSTAR U-100 INSULIN) 100 unit/mL (3 mL) Inject 44 Units subcutaneously twice daily. - insulin aspart U-100 (NOVOLOG FLEXPEN U-100 INSULIN) 100 unit/mL (3 mL) Inject 25 Units subcutaneously three times daily before meals. - mometasone (ELOCON) 0.1 % ointment Apply to affected area once daily. - lovastatin (MEVACOR) 20 mg tablet Take 1 tablet by mouth daily at bedtime. - metFORMIN ER (GLUCOPHAGE XR) 500 mg 24 hr tablet Take 1 tablet by mouth twice daily. - FREESTYLE TY 10 DAY READER misc 1 Units every 8 hours. - aspirin, enteric coated (ASPIRIN, ENTERIC COATED) 81 mg EC tablet Take 81 mg by mouth once daily. - vitamin b complex tab Take 1 tablet by mouth once daily. - Cholecalciferol, Vitamin D3, 2,000 unit cap Take 1 tablet by mouth once daily. - albuterol HFA (VENTOLIN HFA) 90 mcg/actuation inhaler Inhale 2 Puffs as instructed every 4 hours as needed for Wheezing/Shortness of Breath. - CPAP - nitroglycerin sublingual (NITROSTAT) 0.4 mg SUBLINGUAL SL tablet Dissolve under the tongue. FOR CHEST PAIN. IF NO RELIEF CALL 911 Problem List As Of Date 12/05/2020 Noted Resolved BENIGN HYPERTENSION [I10] 05/18/2005 CERVICAL DISC DEGEN [M50.30] 01/31/2007 PERS HX UTERUS MALIGNANCY NEC [Z85.42] 03/28/2007 ATROPHIC VAGINITIS [N95.2] 03/28/2007 SYMPTOMATIC FEMALE CLIMACTERIC STATE [N95.1] 03/28/2007 URGE INCONTINENCE [N39.41] 03/28/2007 FEMALE STRESS INCONTINENCE [N39.3] 03/28/2007 Class 3 severe obesity due to excess calories w*03/28/2007 Personal history of colonic polyps [Z86.010] 01/20/2011 Benign neoplasm of colon [D12.6] 01/20/2011 Family history of malignant neoplasm of gastroi*01/20/2011 Stasis dermatitis [I87.2] 07/13/2011 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 [facility] Progress note 12-05-2020 Note Date & Type Note Facility 12-05-2020 Note HNO ID: [id number] Author: Jayda Mendez MA Service: ? Author Type: Foot Press Operator Type: Progress Notes Filed: 12/05/2020 12:26 PM Note Text: POPULATION HEALTH NAVIGATION OUTREACH Action/FYI LVM Health Maintenance items due: NEEDS NEW PCP ANNUAL MEDICARE WELLNESS EXAM ADVANCE DIRECTIVE DISCUSSION Never done URINE ALBUMIN:CREATININE RATIO due on 07/30/2020 HEMOGLOBIN/HEMATOCRIT due on 07/30/2020 HBA1C due on 10/02/2020 INFLUENZA(1) due on 11/13/2020 NON SMOKER Contact made with patient or family member? NO Pt identified by name and : NO Outreach Outcome/Action Unable to reach patient: Left message Reason for Outreach Care Gap or Scheduling/Wellness visits Payer: Payor: MEDICARE / Plan: MEDICARE A AND B / Product Type: Medicare / Care Gap Reviewed:: Annual Wellness visit HBA1C Flu vaccine Reminder: Reminder note to check Health Maintenance for items below Health Maintenance items due: COVID-19 VACCINE(1) Never done SHINGRIX VACCINE(2 of 3) due on 03/22/2017 ADVANCE DIRECTIVE DISCUSSION Never done PAP TESTING due on 01/24/2019 DEPRESSION SCREENING due on 01/03/2020 URINE ALBUMIN:CREATININE RATIO due on 07/30/2020 HEMOGLOBIN/HEMATOCRIT due on 07/30/2020 HBA1C due on 10/02/2020 INFLUENZA(1) due on 11/13/2020 Advanced Directives Completed: Have you ever planned for future healthcare decisions with a power of purchasing administrator, living will, or advance directives? Referrals: N/A Message Sent to Practice: NO Navigation Signature: Jayda Mendez MA December 05, 2020 9:[address] [facility] Clinical Note 08-19-2020 Note Date & Type Note Facility 08-19-2020 Note Patient Outreach (NE TNAV) NIMO MCCLOUD ([id number]) 1950 F Date Time Provider Department 08/19/20 ANGIE BOONE During your visit today, we recorded the following information about you: Angie Boone Population Health Navigator 08/19/2020 11:09 AM Signed POPULATION HEALTH NAVIGATION OUTREACH Action/FYI Mychart message sent, needs to est with new PCP VM left for a return call Contact made with patient or family member? NO Pt identified by name and : NO Outreach Outcome/Action Unable to reach patient: Left message MyChart message sent Advance Directives sent Reason for Outreach Care Gap or Scheduling/Wellness visits Payer: Payor: MEDICARE / Plan: MEDICARE A AND B / Product Type: Medicare / Care Gap Reviewed:: Follow-up appointment Nephropathy (Albumin/Creatinine) Urine Reminder: Reminder note to check Health Maintenance for items below Health Maintenance items due: ADVANCE DIRECTIVE DISCUSSION Never done URINE ALBUMIN:CREATININE RATIO due on 07/30/2020 Navigation Signature: Angie Boone Population Health Navigator August 19, 2020 10:57 AM Allergies As of Date: 08/19/2020 Noted Allergy Reaction ACETAMINOPHEN 01/06/2002 2 - Rash AMOXICILLIN 01/06/2002 Comments: yeast and rash DARVOCET A500 (PROPOXYPHENE N-DOUGLAS* 2 - Rash GABAPENTIN 12/21/2016 8 - GI Upset Comments: Difficulty focusing, and GI upset MELOXICAM 05/12/2016 4 - Hives OXYCODONE 01/06/2002 2 - Rash QUINAPRIL 01/06/2002 Comments: uncertain SEASONAL ALLERGIES 04/23/2015 16 - Unknown Comments: Dust mites verified by skin testing SHELLFISH CONTAINING PRODUCTS 05/13/2015 4 - Hives Comments: Hives within 20 minutes of eating shrimp ZOFRAN (ONDANSETRON) 04/10/2014 14 - Other: See Comments Comments: Headache Date Reviewed: 04/22/2020 Reviewed by: Meghan (Pham) Wm - Fully Assessed Reason for Visit: Population Health Navigation Outreach [3910] Cmt: ACO Care Gap Prescriptions as of 08/19/2020 Sig: FREESTYLE TY 10 DAY SENSOR* 1 Each every 10 days. LEVOTHYROXINE 300 MCG TABLET Take 1 tablet by mouth daily * TRULICITY 1.5 MG/0.5 ML SUBCU* Inject 1.5 mg subcutaneously * SEMAGLUTIDE 1 MG/DOSE (2 MG/1* Inject 1 mg subcutaneously on* LANTUS SOLOSTAR U-100 INSULIN* Inject 44 Units subcutaneousl* INSULIN ASPART (U-100) 100 UN* Inject 25 Units subcutaneousl* MOMETASONE 0.1 % TOPICAL OINT* Apply to affected area once d* LOVASTATIN 20 MG TABLET Take 1 tablet by mouth daily * METFORMIN ER 500 MG TABLET,EX* Take 1 tablet by mouth twice * LOSARTAN 100 MG TABLET Take 1 tablet by mouth once d* FREESTYLE TY 10 DAY READER 1 Units every 8 hours. ASPIRIN 81 MG TABLET,DELAYED * Take 81 mg by mouth once fay* VITAMIN B COMPLEX TABLET Take 1 tablet by mouth once d* CHOLECALCIFEROL (VITAMIN D3) * Take 1 tablet by mouth once d* ALBUTEROL SULFATE HFA 90 MCG/* Inhale 2 Puffs as instructed * CPAP * NITROGLYCERIN 0.4 MG SUBLINGU* Dissolve under the tongue. F* Problem List As Of Date 08/19/2020 Noted Resolved BENIGN HYPERTENSION [I10] 05/18/2005 CERVICAL DISC DEGEN [M50.30] 01/31/2007 PERS HX UTERUS MALIGNANCY NEC [Z85.42] 03/28/2007 ATROPHIC VAGINITIS [N95.2] 03/28/2007 SYMPTOMATIC FEMALE CLIMACTERIC STATE [N95.1] 03/28/2007 URGE INCONTINENCE [N39.41] 03/28/2007 FEMALE STRESS INCONTINENCE [N39.3] 03/28/2007 Class 3 severe obesity due to excess calories w*03/28/2007 Personal history of colonic polyps [Z86.010] 01/20/2011 Benign neoplasm of colon [D12.6] 01/20/2011 Family history of malignant neoplasm of gastroi*01/20/2011 Stasis dermatitis [I87.2] 07/13/2011 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*10/24/2012 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]10/24/2012 Hyperlipidemia with target LDL less than 100 [E*10/24/2012 Acquired hypothyroidism [E03.9] 02/25/2015 Depression [F32.9] 11/25/2015 Uncontrolled type 2 diabetes mellitus with stag*11/27/2015 Recurrent urinary tract infection [N39.0] 03/23/2016 Malignant neoplasm of uterus (HCC) [C55] 2016 Bright red rectal bleeding [K62.5] 02/22/2017 Family history of colon cancer [Z80.0] 02/22/2017 Vitamin D deficiency, unspecified [E55.9] 01/25/2017 Pure hypercholesterolemia, unspecified [E78.00] 01/06/2017 Obstructive sleep apnea [G47.33] 10/04/2017 Other prison (current) drug therapy [Z79.899]01/25/2017 Other specified soft tissue disorders [M79.89] 01/06/2017 Lymphedema, not elsewhere classified [I89.0] 01/06/2017 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 [facility] Progress note 08-19-2020 Note Date & Type Note Facility 08-19-2020 Note HNO ID: [id number] Author: Angie Boone Population Health Navigator Service: ? Author Type: ? Type: Progress Notes Filed: 08/19/2020 11:09 AM Note Text: POPULATION HEALTH NAVIGATION OUTREACH Action/FYI Mychart message sent, needs to est with new PCP VM left for a return call Contact made with patient or family member? NO Pt identified by name and : NO Outreach Outcome/Action Unable to reach patient: Left message MyChart message sent Advance Directives sent Reason for Outreach Care Gap or Scheduling/Wellness visits Payer: Payor: MEDICARE / Plan: MEDICARE A AND B / Product Type: Medicare / Care Gap Reviewed:: Follow-up appointment Nephropathy (Albumin/Creatinine) Urine Reminder: Reminder note to check Health Maintenance for items below Health Maintenance items due: ADVANCE DIRECTIVE DISCUSSION Never done URINE ALBUMIN:CREATININE RATIO due on 07/30/2020 Navigation Signature: Angie Boone [facility] Health Navigator August 19, 2020 10:[address] [facility] Summary Purpose Family History No Family History Records Found Advance Directives No Advanced Directives Records Found Additional Source Comments INFORMATION SOURCE (unrecogn ized section and content) FOR RECORDS PERTAINING TO PATIENTS WHO ARE OR HAVE BEEN ENROLLED IN A CHEMICAL DEPENDENCY/SUBSTANCEABUSE PROGRAM, SOME INFORMATION MAY BE OMITTED. This clinical summary was aggregated from multiple sources. Caution should be exercised in using it in the provision of clinical care. This summary normalizes information from multiple sources, and as a consequence, information in this document may materially change the coding, format and clinical context of patient data. In addition, data may be omitted in some cases. CLINICAL DECISIONS SHOULD BE BASED ON THE PRIMARY CLINICAL RECORDS. [employer] provides no warranty or guarantee of the accuracy or completeness of information in this document.
[2023-05-06 11:58] LABS: Bacteria 4+ /hpf (None Seen); White Blood Cells 5-10 SEEN /hpf (0-5)
[2023-05-06 12:09] LABS: Microalbumin,Random Urine 20.7 mg/L (NO RANGE EST.); Microalbumin:Creatinine Ratio 19.5 mg/g CRE (<30 mg/g CRE)
[2023-05-06 12:33] LABS: ALB/GLOB Ratio 0.8 RATIO (0.9-2.4); AST(SGOT) 28 U/L (15-37); Alanine Aminotransfer ALT/SGPT 42 U/L (13-56); Albumin, Serum 3.2 g/dL (3.2-5.0); Alkaline Phosphatase 74 U/L (45-117); Anion Gap 4 (5-15); BUN 14 mg/dL (7-18); BUN/Creat Ratio 10.9 RATIO (10-20); Calcium,Total 8.8 mg/dL (8.5-10.1); Chloride 106 mmol/L (98-107); Cholesterol 143 mg/dL (200); Creatinine, Serum 1.28 mg/dL (0.55-1.02); EST Glomerular Filtration Rate 44 mL/min (>60); Est Glom Filt Rate - Afr Amer 53 mL/min (>60); Globulin 3.8 g/dL (2.2-4.2); Glucose 227 mg/dL (74-106); High Density Lipoprotein 37 mg/dL; Potassium 4.4 mmol/L (3.5-5.1); Sodium Level 136 mmol/L (136-145); T4 Free Direct 1.28 ng/dL (0.76-1.46); Triglycerides 129 mg/dL; Very Low Density Lipoprotein 26 mg/dL (5-40)
== END | disposition home or self-care (01) ==
LOC: LAB 11:04
PROVIDERS: PCP Internal Medicine; Referring Provider Nurse Practitioner Family; Visit Provider Nurse Practitioner Family
DX: R39.15 Urgency of urination (principal); E11.9 Type 2 diabetes mellitus without complications; E03.9 Hypothyroidism, unspecified; E55.9 Vitamin D deficiency, unspecified
CPT/HCPCS: 36415; 80053; 80061; 81001; 82043; 82306; 82570; 84439; 84443; 87086; 87088; 87186

== ENCOUNTER → 2023-05-31 | Outpatient (CLI) | payer MEDICARE, SELFPAY | END | disposition home or self-care (01) | LOC: LAB 11:44 | PROVIDERS: PCP Internal Medicine; Referring Provider Nurse Practitioner Family; Visit Provider Nurse Practitioner Family | DX: N39.0 Urinary tract infection, site not specified (principal) | CPT/HCPCS: 87077; 87086; 87088; 87186 ==

== ENCOUNTER 2023-06-07 12:10 | Emergency (ER) | payer MEDICARE, SELFPAY ==
[2023-06-07 12:10] VITALS: BP 167/62; PULSE 61; RESP 16; TEMP 36.3; O2SAT 100
[2023-06-07 12:39] VITALS: BMI 48.1
--- NOTE | 2023-06-07 13:15 | EDS_ITS ---
HPI History of Present Illness Chief Complaint: Complaint Informant: patient and family Narrative Narrative: 72-year-old female presenting to the emergency room chief complaint of not feeling well. Patient states that she saw endocrinology earlier this month. She was put on doxycycline for reported UTI. She states that she had a follow- up urine specimen that continued to show infection but she did not have any symptoms of UTI. She states she classically will get urinary frequency dysuria low back pain and some nausea plus or minus a low-grade fever. She states she was religiously put on ciprofloxacin and was taking some Benadryl. However after beginning it she developed a hive on her hand. She was changed to Macrobid and states that the date that she started that she is began to have some upper abdominal discomfort nausea headache and just relatively feeling poor. She states she has been eating and drinking okay. Family notes she has a low-grade fever this morning. Patient notes that her stools are soft but not diarrhea. She has had prior cholecystectomy. She has also had an episode of pancreatitis in the past [facility] Medical History Alcohol use Arthritis Asthma BiPAP (biphasic positive airway pressure) dependence Cancer Chronic cough Diabetes Diarrhea Dietary restriction Easy bruising GERD (gastroesophageal reflux disease) Hemorrhoids History of colon polyps History of diverticulitis History of echocardiogram History of edema History of stress test HTN (hypertension) Hyperlipidemia Kidney disease Leg cramps Low back pain Non-smoker Obesity ANISHA (obstructive sleep apnea) Pyelonephritis Restless legs Shortness of breath on exertion Shoulder pain Urinary urgency Wears dentures Wears glasses Home Medications multivitamin 1 tab PO DAILY #90 tabs 02/16/22 [Rx Last Taken Unknown] potassium citrate 99 mg capsule 99 mg PO DAILY #90 caps 02/16/22 [Rx Last Taken Unknown] cyanocobalamin (vitamin B-12) 1 tab PO DAILY 06/03/22 [History Last Taken Unknown] magnesium gluconate 12.5 mg magnesium (250 mg) tablet 250 mg PO DAILY 06/03/22 [History Last Taken Unknown] levothyroxine 200 mcg tablet 200 mcg PO DAILY #90 tabs 08/05/22 [Rx Last Taken Unknown] insulin aspart U-100 100 unit/mL (3 mL) subcutaneous pen (Novolog FlexPen U-100 Insulin aspart) 28 unit subcut TID 02/01/23 [History Last Taken Unknown] insulin glargine 100 unit/mL (3 mL) subcutaneous pen (Lantus Solostar U-100 Insulin) 50 unit subcut DAILY 02/01/23 [History Last Taken Unknown] losartan 100 mg-hydrochlorothiazide 12.5 mg tablet 1 tab PO DAILY HTN #90 tabs 03/23/23 [Rx Last Taken Unknown] lovastatin 20 mg tablet 20 mg PO QHS cholesterol #90 tabs 03/23/23 [Rx Last Taken Unknown] omeprazole 20 mg capsule,delayed release 20 mg PO DAILY GERD #90 caps 03/23/23 [Rx Last Taken Unknown] flash glucose sensor (FreeStyle Mary Ann 14 Day Sensor kit) #6 ea 05/06/23 [Rx Last Taken Unknown] tirzepatide 7.5 mg/0.5 mL subcutaneous pen injector (Mounjaro) 7.5 mg (0.5 mL) subcut QWEEK #2 mL 05/06/23 [Rx Last Taken Unknown] nitrofurantoin macrocrystal 100 mg capsule (Macrodantin) 100 mg PO Q12H #20 caps 06/04/23 [Rx Last Taken Unknown] promethazine 25 mg tablet 25 mg PO TID PRN nausea and vomiting #14 tabs 06/07/23 [Rx Last Taken Unknown] Allergy/AdvReac Type Severity Reaction Status Date / Time ciprofloxacin [From Cipro] Allergy Mild Rash Verified 06/07/23 12:11 ondansetron HCl Allergy Rash Verified 06/07/23 12:11 [From Zofran (as hydrochloride)] oxycodone HCl [From Percocet] Allergy Rash Verified 06/07/23 12:11 Penicillins [PCN] Allergy Other Verified 06/07/23 12:11 propoxyphene napsylate Allergy Rash Verified 06/07/23 12:11 [From Darvocet-N 100] nickel AdvReac Intermediate Rash Verified 06/07/23 12:11 Family History Father Colon cancer Myocardial infarction Diabetes Hypertension Hyperlipemia Grandmother No problems noted. Mother Colon cancer Cancer Heart disease CVA (cerebral vascular accident) Diabetes Thyroid disorder Hypertension Myocardial infarction Hyperlipemia Brother Colon cancer Unknown Breast cancer 2 cousins Uncle Colon cancer Surgical History H/O: hysterectomy History of cholecystectomy History of colonoscopy (~08/14/19) History of esophagogastroduodenoscopy (EGD) History of laparoscopy History of oral surgery S/P colonoscopy S/P hysterectomy S/P wrist surgery Status post laparoscopic cholecystectomy Stone, kidney Social History Smoking Status: Never smoker second hand exposure: No alcohol intake: current alcohol intake frequency: holidays/special occasions only substance use type: does not use caffeine: Yes what type of physical activity do you participate in: none frequency: does not exercise ROS ROS ED ROS Narrative Lightheadedness feeling poor Constitutional Constitutional ED: Reports fever(s); Denies chills or weight loss Eyes Eyes: Denies change in vision or diplopia ENT ENT ED: Denies ear pain, rhinorrhea or sore throat Cardiovascular Cardiovascular: Denies chest pain, orthopnea, palpitations or racing heartbeat Respiratory/Chest Respiratory/Chest: Reports cough; Denies dyspnea or orthopnea Gastrointestinal Gastrointestinal: Reports abdominal pain and nausea; Denies diarrhea or vomiting Genitourinary Genitourinary ED: Denies dysuria, hematuria or urinary frequency Musculoskeletal Musculoskeletal: Denies arthralgias or myalgias Integumentary Denies abscess or rash Neurologic Neurologic: Reports headache(s); Denies weakness Psychiatric Psychiatric: Denies anxiety, depression, suicidal ideation or suicidal thoughts Endocrine Endocrinology: Denies polydipsia, polyphagia or polyuria Allergic/Immunologic Allergic/Immunologic ED: Denies mouth swelling, tongue swelling or urticaria EXAM Physical Exam Const Vital Signs: 06/07/23 12:10 06/07/23 14:00 Temperature 97.3 F L Temperature Source Temporal Pulse Rate 61 78 Respiratory Rate 16 16 Blood Pressure 167/62 H 160/61 H Blood Pressure Mean 97 94 Pulse Ox 100 99 Oxygen Delivery Method Room Air Room Air Positive well nourished, well developed and obese General Appearance ED: well developed Nutritional Appearance: obese HEENT Reports normocephalic, head/scalp atraumatic and moist mucous membranes Eyes PERRL and EOMs intact bilaterally Neck no lymphadenopathy, supple and no JVD Resp normal respiratory effort and clear to auscultation bilaterally Cardio regular rate, regular rhythm and no murmurs GI Inspection: Negative for abdominal distention Auscultation: normoactive bowel sounds Palpation: soft and tender epigastric and RUQ; Negative for guarding Back/Spine no CVA tenderness and normal ROM Extremity normal to inspection General Extremety ED: Negative for edema General Extremity: Negative for edema Neuro oriented x3 and CN's II-XII intact bilaterally Sensorium / Orientation: alert Motor Exam: strength 5/5 throughout Psych mental status grossly normal Mood & Affect: Negative for depressed or tearful Skin no rashes or lesions noted and no wounds MDM MDM MDM Narrative Medical decision making narrative: Urinalysis today does not show any overt infection no bacteria no white cells. White count 9.6 hemoglobin 12.2. Platelet count 278. Glucose 163 normal sodium and potassium CO2 24 anion gap of 4 BUN of 24 with a creatinine 1.35. Normal liver enzymes and a lipase of 70. Patient received a dose of Phenergan. She was a difficult IV start and nursing was not able to secure an IV to give her IV fluids which she is okay with. At this point I think she can go ahead and stop the antibiotic as it is possible that some of her symptoms are due to the medications. I will write for some nausea medicine at home. Would recommend oral hydration. Would recommend follow-up with PC History & Record Review Discussion w/independent historian: Patient and Family Additional record(s) reviewed:: Prior outpatient record and Prior labs Lab Data Attestation: I reviewed the patient's lab results. Labs: Laboratory Results - last 24 hr 06/07/23 14:00 WBC 9.6 RBC 4.98 Hgb 12.2 Hct 40.6 MCV 81.5 MCH 24.5 L MCHC 30.0 L RDW Std Deviation 44.0 H RDW Coeff of Tara 15.2 H Plt Count 278 MPV 10.5 Immature Gran % (Auto) 0.400 Neut % (Auto) 64.9 Lymph % (Auto) 24.7 [place] % (Auto) 7.4 Eos % (Auto) 2.1 Baso % (Auto) 0.5 Absolute Neuts (auto) 6.2 Absolute Lymphs (auto) 2.36 Nucleated RBC % 0 Sodium 137 Potassium 4.1 Chloride 109 H Carbon Dioxide 24.0 Anion Gap 4 L BUN 24 H Creatinine 1.35 H Estim Creat Clear Calc 49.41 Est GFR (MDRD) Af Amer 50 L Est GFR (MDRD) Non-Af 41 L BUN/Creatinine Ratio 17.8 Glucose 163 H Calcium 9.2 Total Bilirubin 0.30 Direct Bilirubin 0.21 AST 26 ALT 27 Alkaline Phosphatase 68 Total Protein 7.1 Albumin 3.2 Globulin 3.9 Lipase 70 Urine Color Yellow Urine Clarity Clear Urine pH 5.0 Ur Specific [place] 1.015 Urine Protein Negative Urine Glucose (UA) 250 H Urine Ketones 5 H Urine Occult Blood Negative Urine Nitrite Negative Urine Bilirubin Negative Urine Urobilinogen Normal Ur Leukocyte Esterase Negative Urine RBC 0 SEEN Urine WBC 0 SEEN Ur Squamous Epith Cells 0-5 SEEN Urine Bacteria 0 SEEN Urine Mucus 0 SEEN Discharge Plan Triage Chief Complaint: Complaint ED Provider: Jad Marinelli Dx/Rx/DC Orders Clinical Impression: Diabetes, Headache, Nausea Prescriptions: New promethazine 25 mg tablet 25 mg PO TID PRN (Reason: nausea and vomiting) Qty: 14 0RF No Action insulin aspart U-100 [Novolog FlexPen U-100 Insulin] 100 unit/mL (3 mL) insulin pen 28 unit subcut TID Lantus Solostar U-100 Insulin 100 unit/mL (3 mL) insulin pen 50 unit subcut DAILY (DME) FreeStyle Mary Ann 14 Day Sensor Kit See Rx Instructions .ROUTE .MEDSUPPLY Qty: 6 1RF Rx Instructions: 1 sensor q 14 days Mounjaro 7.5 mg/0.5 mL pen injector 7.5 mg subcut QWEEK Qty: 2 3RF cyanocobalamin (vitamin B-12) Tablet,Chewable 1 tab PO DAILY magnesium gluconate 12.5 mg magne- sium (250 mg) Tablet 250 mg PO DAILY multivitamin Tablet 1 tab PO DAILY Qty: 90 3RF potassium citrate 99 mg capsule 99 mg PO DAILY Qty: 90 3RF levothyroxine 200 mcg tablet 200 mcg PO DAILY Qty: 90 1RF losartan-hydrochlorothiazide 100-12.5 mg tablet 1 tab PO DAILY Qty: 90 3RF lovastatin 20 mg tablet 20 mg PO QHS Qty: 90 3RF omeprazole 20 mg capsule,delayed release(DR/EC) 20 mg PO DAILY Qty: 90 3RF nitrofurantoin macrocrystal [Macrodantin] 100 mg capsule 100 mg PO Q12H Qty: 20 0RF Rx Instructions: must administer with a meal/food Primary Care Provider: Allison Gomez Referrals: Allison Gomez MD [Primary Care Provider] - 3-5 Days if not improving Disposition Disposition: Home, Self Care
[2023-06-07] MEDS: proMETHazine 25 MG Tablet 12.5 MG PO (13:43)
[2023-06-07] MEDS: 0.9% Normal Saline (1000mL) 1,000 ML 1000 ML IV (13:43)
[2023-06-07 14:00] VITALS: BP 160/61; PULSE 78; RESP 16; O2SAT 99
[2023-06-07 14:09] LABS: Bacteria 0 SEEN /hpf (None Seen); Mucous, Urine 0 SEEN /hpf (<or=2+); Red Blood Cells-Urine 0 SEEN /hpf (0-5); White Blood Cells 0 SEEN /hpf (0-5)
[2023-06-07 14:12] LABS: Absolute Lymphocyte Count 2.36 X10^3/uL (0.83-4.51); Absolute Neutrophil Count 6.2 X10^3/uL (2.0-7.7); Basophil# 0.05 X10^3/uL; Basophil% 0.5 % (0-1); Eosinophils% 2.1 % (0-5); Hematocrit 40.6 % (37-47); Hemoglobin 12.2 g/dL (12.0-15.0); Lymphocyte # 2.36 X10^3/ul (0.83-4.51); Lymphocyte % 24.7 % (19-41); Mean Corpuscular Hgb 24.5 pg (27.0-32.0); Mean Corpuscular Volume 81.5 fL (81-99); Mean Platelet Vol. 10.5 fl (6.2-12.0); Monocyte# 0.71 X10^3/uL; Monocyte% 7.4 % (0-10); NRBC Flagged by Analyzer 0 % (0-5); Neutrophil # 6.19 X10^3/uL (2.7-7.7); Neutrophil % 64.9 % (47-70); Platelet Count 278 K/mm3 (150-450); RBC Distribution Width CV 15.2 % (11.6-14.6); Red Blood Count 4.98 M/mm3 (4.2-5.4); White Blood Count 9.6 K/mm3 (4.4-11.0)
[2023-06-07 14:13] LABS: Color, Urine Yellow (Yellow); Glucose, Dipstick 250 mg/dl (Normal); Ketone-Dipstick 5 mg/dl (Negative); Leukocyte Esterase-Dipstick Negative /ul (Negative); Nitrite-Dipstick Negative (Negative); Occult Blood-Urine Negative /ul (Negative); Protein-Dipstick Negative (Negative); Specific Gravity, Urine 1.015 (1.002-1.030); Urine Bilirubin Dipstick Negative (Negative); Urine Clarity Clear (Clear); Urine Urobilinogen Normal (Normal)
[2023-06-07 14:18] LABS: Squamous Epithelial Cells - UA 0-5 SEEN /hpf (5-10)
[2023-06-07 14:29] LABS: AST(SGOT) 26 U/L (15-37); Alanine Aminotransfer ALT/SGPT 27 U/L (13-56); Albumin, Serum 3.2 g/dL (3.2-5.0); Alkaline Phosphatase 68 U/L (45-117); Anion Gap 4 (5-15); BUN 24 mg/dL (7-18); BUN/Creat Ratio 17.8 RATIO (10-20); Bilirubin, Direct 0.21 mg/dL (0.00-0.30); Calcium,Total 9.2 mg/dL (8.5-10.1); Chloride 109 mmol/L (98-107); Creatinine, Serum 1.35 mg/dL (0.55-1.02); EST Glomerular Filtration Rate 41 mL/min (>60); Est Glom Filt Rate - Afr Amer 50 mL/min (>60); Estimated Creatinine Clearance 49.41 ml/min; Globulin 3.9 g/dL (2.2-4.2); Glucose 163 mg/dL (74-106); Lipase 70 U/L (13-75); Potassium 4.1 mmol/L (3.5-5.1); Protein, Total 7.1 g/dL (6.4-8.2); Sodium Level 137 mmol/L (136-145)
[2023-06-07 15:33] VITALS: BP 127/57; PULSE 88; RESP 16; TEMP 36.6; O2SAT 98
== END 2023-06-07 15:40 | disposition home or self-care (01) ==
PROVIDERS: Emergency Provider Emergency Medicine; PCP Internal Medicine; Visit Provider Emergency Medicine
DX: R11.0 Nausea (principal); E11.9 Type 2 diabetes mellitus without complications; Z79.4 Long term (current) use of insulin; R51.9 Headache, unspecified; Z90.49 Acquired absence of other specified parts of digestive tract; I10 Essential (primary) hypertension; E78.5 Hyperlipidemia, unspecified; G47.33 Obstructive sleep apnea (adult) (pediatric); Z99.81 Dependence on supplemental oxygen; K21.9 Gastro-esophageal reflux disease without esophagitis; Z90.710 Acquired absence of both cervix and uterus
CPT/HCPCS: 80048; 80076; 81001; 83690; 85025; 96360; 99283; J7030; A4216

== ENCOUNTER → 2023-09-13 | Outpatient (CLI) | payer MEDICARE, SELFPAY ==
--- NOTE | 2023-09-13 10:57 | BI_ITS ---
MAMMOGRAPHY - BILATERAL SCREENING 3-D TOMOSYNTHESIS REASON FOR EXAM: Female, 72 years old. Breast cancer screening PERTINENT HISTORY: No significant family history. TECHNIQUE: 2-D mammograms and 3-D Tomosynthesis of the breast (s) were performed. CAD was performed. COMPARISON: 04/22/2020 FINDINGS: The breast composition is composed of scattered fibroglandular density. Scattered benign calcifications are seen. No dense spiculated masses or suspicious microcalcifications are identified. No architectural distortion is identified. There is no skin thickening or retraction. There has been no significant change since the prior study. BI/SCRN MAMM (CAD)W/NAS BILAT IMPRESSION: No mammographic signs of malignancy. Routine yearly mammograms recommended. ASSESSMENT CATEGORY: BIRADS Category 1: Negative. A letter regarding these results will be sent to the patient by the facility within 30 days. FOLLOW UP RECOMMENDATION: Yearly follow up mammogram recommended. (A) Approximately 10% of breast cancers are not detected by mammography. A normal mammogram should not delay biopsy of a clinically suspicious abnormality. Electronically Signed: Raudel Mcclain MD at 8:48 EDT ,
== END | disposition home or self-care (01) ==
PROVIDERS: PCP Internal Medicine; Referring Provider Internal Medicine; Visit Provider Internal Medicine
DX: Z12.31 Encounter for screening mammogram for malignant neoplasm of breast (principal)
CPT/HCPCS: 77063; 77067

== ENCOUNTER → 2023-12-23 | Outpatient (CLI) | payer MEDICARE, SELFPAY ==
[2023-12-23 11:47] LABS: Bacteria 0 SEEN /hpf (None Seen); Mucous, Urine 0 SEEN /hpf (<or=2+); Red Blood Cells-Urine 0 SEEN /hpf (0-5); White Blood Cells 0 SEEN /hpf (0-5)
[2023-12-23 12:05] LABS: Color, Urine Yellow (Yellow); Glucose, Dipstick Normal (Normal); Ketone-Dipstick Negative (Negative); Leukocyte Esterase-Dipstick 25 /ul (Negative); Nitrite-Dipstick Negative (Negative); Occult Blood-Urine Negative /ul (Negative); Protein-Dipstick Negative (Negative); Urine Bilirubin Dipstick Negative (Negative); Urine Clarity Clear (Clear); Urine Urobilinogen Normal (Normal)
[2023-12-23 12:50] LABS: Squamous Epithelial Cells - UA 0-5 SEEN /hpf (5-10)
== END | disposition home or self-care (01) ==
LOC: LAB 11:42
PROVIDERS: PCP Internal Medicine; Referring Provider Nurse Practitioner Family; Visit Provider Internal Medicine
DX: N39.0 Urinary tract infection, site not specified (principal)
CPT/HCPCS: 81001; 87086

== ENCOUNTER → 2023-12-30 | Outpatient (CLI) | payer MEDICARE, SELFPAY ==
--- NOTE | 2023-12-30 12:39 | US_ITS ---
EXAM: US SOFT TISSUES HEAD AND NECK, THYROID CLINICAL INDICATION: enlarged thyroid gland TECHNIQUE: Greyscale and color doppler imaging was performed of the thyroid gland. COMPARISON: CTA chest on the same date. FINDINGS: LEFT THYROID LOBE: The left thyroid lobe measures 4.2 x 1.3 x 1.4 cm. Homogeneous echotexture with normal vascularity. No thyroid nodules are present. RIGHT THYROID LOBE: The right thyroid lobe measures 4.1 x 1.5 x 1.8 cm. Within the right thyroid lobe, there is a 0.9 cm nodule. This nodule is solid or almost completely solid, hyperechoic or isoechoic, [id number], ill-defined and contains no echogenic foci. TI-RADS points: 3. TI-RADS category: TR3. This nodule is mildly suspicious but no FNA or follow-up is necessary given the small size of this nodule. Within the right thyroid lobe, there is a 1.3 cm nodule. This nodule is solid or almost completely solid, hypoechoic, hhikp-qeiz-xito, ill-defined and contains no echogenic foci. TI-RADS points: 4. TI-RADS category: TR4. This nodule is moderately suspicious. Recommend follow-up thyroid ultrasounds at 1, 2, 3 and 5 years. Within the right thyroid lobe, there is a 0.9 cm nodule. This nodule is solid or almost completely solid, hypoechoic, nwryz-aqyh-[id number], smoothly marginated and contains no echogenic foci. TI-RADS points: 4. TI-RADS category: TR4. This nodule is moderately suspicious but no FNA or follow-up is necessary given the small size of this nodule. ISTHMUS: The thyroid isthmus measures 0.4 cm. No thyroid nodules are present. US/Thyroid IMPRESSION: 1. There are 3 right-sided thyroid nodules, the largest measuring 1.3 cm. No FNA is indicated at this time. Recommend follow-up thyroid ultrasound at 1, 2, 3, and 5 years. 2. No significant enlargement of the thyroid gland. Electronically Signed: Tom Lindsay DO at 22:07 EDT ,
== END | disposition home or self-care (01) ==
LOC: US 12:38
PROVIDERS: PCP Internal Medicine; Referring Provider Nurse Practitioner Family; Visit Provider Nurse Practitioner Family
DX: E04.9 Nontoxic goiter, unspecified (principal)
CPT/HCPCS: 76536

== ENCOUNTER → 2024-04-06 | Outpatient (CLI) | payer MEDICARE, SELFPAY ==
[2024-04-06 12:07] LABS: Microalbumin,Random Urine 19.1 mg/L (NO RANGE EST.); Microalbumin:Creatinine Ratio 14.7 mg/g CRE (<30 mg/g CRE)
[2024-04-06 12:16] LABS: ALB/GLOB Ratio 0.9 RATIO (0.9-2.4); AST(SGOT) 18 U/L (15-37); Alanine Aminotransfer ALT/SGPT 25 U/L (13-56); Albumin, Serum 3.2 g/dL (3.2-5.0); Alkaline Phosphatase 69 U/L (45-117); Anion Gap 5 (5-15); BUN 21 mg/dL (7-18); BUN/Creat Ratio 19.4 RATIO (10-20); Calcium,Total 9.3 mg/dL (8.5-10.1); Chloride 107 mmol/L (98-107); Cholesterol 129 mg/dL (200); Creatinine, Serum 1.08 mg/dL (0.55-1.02); EST Glomerular Filtration Rate 53 mL/min (>60); Est Glom Filt Rate - Afr Amer 64 mL/min (>60); Globulin 3.5 g/dL (2.2-4.2); Glucose 163 mg/dL (74-106); High Density Lipoprotein 43 mg/dL; Potassium 4.2 mmol/L (3.5-5.1); Protein, Total 6.7 g/dL (6.4-8.2); Sodium Level 139 mmol/L (136-145); Triglycerides 95 mg/dL; Very Low Density Lipoprotein 19 mg/dL (5-40)
== END | disposition home or self-care (01) ==
LOC: LAB 10:13
PROVIDERS: PCP Internal Medicine; Referring Provider Nurse Practitioner Family; Visit Provider Nurse Practitioner Family
DX: E11.65 Type 2 diabetes mellitus with hyperglycemia (principal); Z79.4 Long term (current) use of insulin; E78.5 Hyperlipidemia, unspecified; E55.9 Vitamin D deficiency, unspecified; E03.9 Hypothyroidism, unspecified
CPT/HCPCS: 36415; 80053; 80061; 82043; 82306; 82570; 84439; 84443

== ENCOUNTER 2024-04-17 15:29 | Emergency (ER) | payer MEDICARE, SELFPAY ==
[2024-04-17 15:30] VITALS: BP 143/58; PULSE 71; RESP 18; TEMP 36.4; O2SAT 99; BMI 43.4
--- NOTE | 2024-04-17 15:37 | RAD_ITS ---
PROCEDURE: ANKLE MIN 3 VIEWS REASON FOR EXAM: Injury. TECHNIQUE: 3 views of the right ankle COMPARISON: None FINDINGS: No visible fracture. No suspicious bone lesion. Normal alignment. Mortise appears intact. No effusion. Soft tissues are unremarkable. Calcaneal enthesophytes. RAD/Ankle min 3 Views IMPRESSION: No acute osseous abnormalities. Reading Location: [id number]
--- NOTE | 2024-04-17 16:05 | EDS_ITS ---
HPI History of Present Illness Chief Complaint: Lower Extremity Injury Informant: patient Narrative Narrative: Presents for evaluation of right ankle injury occurring a week ago. She stepped back bumping mopping bucket. There was abrasion. She has had some soreness since then. No drainage no fevers. She was urgent care however could not get seen and therefore came here. No other injuries. She is a diabetic. [facility] Medical History Obesity Urinary urgency Wears glasses Wears dentures Alcohol use Arthritis Easy bruising Restless legs Dietary restriction History of diverticulitis Shortness of breath on exertion Chronic cough Leg cramps History of edema History of echocardiogram History of stress test History of colon polyps GERD (gastroesophageal reflux disease) BiPAP (biphasic positive airway pressure) dependence Pyelonephritis Non-smoker Low back pain ANISHA (obstructive sleep apnea) Asthma Diarrhea Diabetes Shoulder pain Hemorrhoids Kidney disease Cancer HTN (hypertension) Hyperlipidemia Home Medications ?Medication ?Instructions ?Recorded ?Last Taken ?Type multivitamin 1 tab PO DAILY #90 tabs 08/03 Unknown Rx potassium citrate 99 mg capsule 99 mg PO DAILY #90 cap s 02/16/22 Unknown Rx cyanocobalamin (vitamin B-12) 1 tab PO DAILY 06/03/22 Unknown History magnesium gluconate 12.5 mg 250 mg PO DAILY 06/03/22 U nknown History magnesium (250 mg) tablet lovastatin 20 mg tablet 20 mg PO QHS cholesterol #90 tabs 03/23/23 Unknown Rx omeprazole 20 mg capsule,delayed 20 mg PO DAILY GERD # 90 caps 03/23/23 Unknown Rx release ascorbate calcium (vitamin C) 500 500 mg PO DAILY 09/12 04/07 Unknown History mg tablet tirzepatide 15 mg/0.5 mL 15 mg (0.5 mL) subcut QWEEK #6 mL 02/07/24 Unknown Rx subcutaneous pen injector (Mounjaro) losartan 100 mg tablet 100 mg PO QDAY #30 tabs 12/07 Unknown Rx losartan 100 0.5 tab PO DAILY HTN 5 Unknown History mg-hydrochlorothiazide 12.5 mg tablet levothyroxine 200 mcg tablet 200 mcg PO .Mon-Sat #90 t abs 04/06/24 Unknown Rx Lantus Solostar U-100 Insulin 100 50 unit (0.5 mL) sub cut DAILY #45 04/10/24 Unknown Rx unit/mL (3 mL) subcutaneous pen mL (insulin glargine) blood-glucose sensor (FreeStyle #6 ea 04/10/24 Unknown Rx Mary Ann 3 Plus Sensor device) insulin aspart 35 unit subcut TID #94.5 mL 04/13/24 Unknown Rx (niacinamide)(U-100) 100 unit/mL(3 mL) subcutaneous pen (Fiasp FlexTouch U-100 Insulin) Allergy/AdvReac Type Severity Reaction Status Date / Time ciprofloxacin (From Cipro) Allergy Mild Rash Verified 03/23/24 10:44 ondansetron HCl (From Zofran Allergy Rash Verified 03/23/24 10:44 (as hydrochloride)) oxycodone HCl (From Percocet) Allergy Rash Verified 03/23/24 10:44 Penicillins (PCN) Allergy Other Verified 03/23/24 10:44 propoxyphene napsylate (From Allergy Rash Verified 03/23/24 10:44 Darvocet-N 100) nickel AdvReac Intermediate Rash Verified 03/23/24 10:44 Family History Father Colon cancer Myocardial infarction Diabetes Hypertension Hyperlipemia Grandmother No problems noted. Mother Colon cancer Cancer Heart disease CVA (cerebral vascular accident) Diabetes Thyroid disorder Hypertension Myocardial infarction Hyperlipemia Brother Colon cancer Unknown Breast cancer 2 cousins Uncle Colon cancer Surgical History History of laparoscopy History of oral surgery H/O: hysterectomy History of cholecystectomy History of colonoscopy (~08/14/19) History of esophagogastroduodenoscopy (EGD) S/P colonoscopy S/P wrist surgery S/P hysterectomy Stone, kidney Status post laparoscopic cholecystectomy Social History Smoking Status: Never smoker second hand exposure: No alcohol intake: current alcohol intake frequency: holidays/special occasions only substance use type: does not use caffeine: Yes what type of physical activity do you participate in: none frequency: does not exercise ROS ROS ED Constitutional Constitutional ED: Denies chills, fever(s) or sweats Cardiovascular Cardiovascular: Denies chest pain Respiratory/Chest Respiratory/Chest: Denies cough Gastrointestinal Gastrointestinal: Denies abdominal pain, diarrhea, nausea or vomiting Musculoskeletal Musculoskeletal: Reports extremity pain; Denies back pain or neck pain Integumentary Reports wounds; Denies rash Neurologic Neurologic: Denies paresthesias EXAM Physical Exam Const Vital Signs: 04/17/24 15:30 Temperature 97.6 F L Temperature Source Temporal Pulse Rate 71 Respiratory Rate 18 Blood Pressure 143/58 H Blood Pressure Mean 86 Pulse Ox 99 Oxygen Delivery Method Room Air Positive well nourished and well developed General Appearance ED: well developed and NAD HEENT Reports moist mucous membranes normocephalic and atraumatic Eyes General Eye ED: Yes normal appearance of both eyes Neck full ROM Chest Wall Chest: Negative for tenderness Resp normal respiratory effort and normal air movement Effort and Inspection: symmetric chest movement; Negative for respiratory distress Cardio regular rate, regular rhythm and no murmurs Peripheral Pulses: pulses 2+ throughout GI normal to inspection, nondistended, normoactive bowel sounds and non-tender Palpation: Negative for guarding or rebound tenderness present Extremity Extremity Narrative: Right lower extremity: No knee tenderness. There is scabbing on lateral malleolus, no surrounding erythema no drainage. Mild bony tenderness. No medial mall tenderness. No foot tenderness. No streaking. General Extremety ED: Negative for edema or tenderness General Extremity: Negative for edema Neuro oriented x3 and no sensory deficits noted Sensorium / Orientation: awake and alert Skin Skin Narrative: See above MDM MDM MDM Narrative Medical decision making narrative: Interventions / MDM: Differential diagnosis: Contusion, abrasion Diagnosis considered but do not suspect: Fracture however x-ray negative. No clinical infection. My EKG interpretation: N/A Imaging independently reviewed and interpreted by myself: 3 view right ankle: No fracture or dislocation noted. External documents reviewed: N/A Test considered but not ordered:N/A ED course: Patient x-ray performed through triage. Sterba myself no fractures noted. Wound healing appropriate. No signs of infection. Discussed continued wound care with the patient. She is reassured. She is ambulating with no difficulties. Outpatient follow-up. All questions were answered. Re-evaluation: stable Disposition discussed with patient/family/significant other: Patient Case discussed with consulting clinician: N/A This note was generated with [employer] software. It may contain incorrect words, spelling, and punctuation that were not noted in checking the note before signing. Radiography Diagnostic Testing: Clinical Impression(s) from Imaging Studies Ankle X-Ray 04/17/24 15:37 IMPRESSION: No acute osseous abnormalities. Reading Location: [facility] Discharge Plan Triage Chief Complaint: Lower Extremity Injury ED Provider: Jeffery Vieyra Dx/Rx/DC Orders Clinical Impression: Contusion of ankle, right, Abrasion of ankle, right Instructions: ED Abrasion, ED Contusion, Lower Extremity Prescriptions: No Action ascorbate calcium (vitamin C) 500 mg tablet 500 mg PO DAILY losartan-hydrochlorothiazide 100-12.5 mg tablet 0.5 tab PO DAILY losartan 100 mg tablet 100 mg PO QDAY Qty: 30 5RF cyanocobalamin (vitamin B-12) Tablet,Chewable 1 tab PO DAILY magnesium gluconate 12.5 mg magne- sium (250 mg) Tablet 250 mg PO DAILY multivitamin Tablet 1 tab PO DAILY Qty: 90 3RF potassium citrate 99 mg capsule 99 mg PO DAILY Qty: 90 3RF lovastatin 20 mg tablet 20 mg PO QHS Qty: 90 3RF omeprazole 20 mg capsule,delayed release(DR/EC) 20 mg PO DAILY Qty: 90 3RF Mounjaro 15 mg/0.5 mL pen injector 15 mg subcut QWEEK Qty: 6 1RF levothyroxine 200 mcg tablet 200 mcg PO .Mon-Sat Qty: 90 1RF insulin glargine [Lantus Solostar U-100 Insulin] 100 unit/mL (3 mL) insulin pen 50 unit subcut DAILY Qty: 45 1RF (DME) FreeStyle Mary Ann 3 Plus Sensor Device See Rx Instructions .Route Qty: 6 1RF Rx Instructions: As directed Fiasp FlexTouch U-100 Insulin 100 unit/mL (3 mL) insulin pen 35 unit subcut TID Qty: 94.5 1RF Primary Care Provider: Allison Gomez Referrals: Allison Gomez MD [Primary Care Provider] - 1-2 Weeks Activity Restrictions/Additional Instructions: Ankle x-ray negative. Wound care as discussed. Follow-up with your doctor. Print Language: Chinese Disposition Disposition: Home, Self Care Discharge Date/Time: 04/17/24 16:22
== END 2024-04-17 16:22 | disposition home or self-care (01) ==
LOC: ED 16:18
PROVIDERS: Emergency Provider Emergency Medicine; PCP Internal Medicine; Visit Provider Emergency Medicine
DX: S90.01XA Contusion of right ankle, initial encounter (principal); E11.9 Type 2 diabetes mellitus without complications; Z79.4 Long term (current) use of insulin; S90.511A Abrasion, right ankle, initial encounter; Z90.710 Acquired absence of both cervix and uterus; I10 Essential (primary) hypertension; W22.09XA Striking against other stationary object, initial encounter; G47.33 Obstructive sleep apnea (adult) (pediatric); Z99.81 Dependence on supplemental oxygen; E78.5 Hyperlipidemia, unspecified; K21.9 Gastro-esophageal reflux disease without esophagitis; Z79.899 Other long term (current) drug therapy; Z79.85 Long-term (current) use of injectable non-insulin antidiabetic drugs; Z90.49 Acquired absence of other specified parts of digestive tract
CPT/HCPCS: 73610; 99282

== ENCOUNTER 2024-05-07 14:59 | Emergency (ER) | payer MEDICARE, SELFPAY ==
[2024-05-07 15:03] VITALS: BP 140/64; PULSE 62; RESP 18; TEMP 36.5; O2SAT 99; BMI 44.4
--- NOTE | 2024-05-07 15:20 | CT_ITS ---
PROCEDURE: ABDOMEN/PELVIS W IV CONT ONLY REASON FOR EXAM: Epigastric TECHNIQUE: Abdomen and pelvis CT with intravenous contrast. COMPARISON: 12/10/2022 FINDINGS: Lung bases: Coronary artery calcifications Liver: Diffuse fatty infiltration. Gallbladder: Surgically absent. Spleen: Normal size. Pancreas: Normal size without evidence of mass surrounding inflammation or ductal dilation. Adrenals: Unremarkable. Kidneys: Normal renal sizes. No hydronephrosis. Bladder: Unremarkable. Reproductive Organs: Prior hysterectomy. Adnexal regions are unremarkable. Bowel: Colonic diverticulosis without diverticulitis. Appendix: Normal. Lymph nodes: No suspicious lymph node enlargement. Vasculature: Mild diffuse atherosclerotic calcifications are noted. Peritoneum / Retroperitoneum: No ascites. No free air. Bones: Degenerative changes of the spine. CT/Abdomen/Pelvis W IV Cont ONLY IMPRESSION: 1. No acute CT abnormality in the abdomen and pelvis. 2. Hepatic steatosis. 3. Sigmoid diverticulosis with no evidence of diverticulitis One or more dose reduction techniques were used (e.g., Automated exposure contr ol, adjustment of the mA and/or kV according to patient size, use of iterative reconstruction technique). Reading Location: [facility]
--- NOTE | 2024-05-07 15:21 | EX.ED.DYSGE1 ---
HPI <RENETTA Santamaria - Last Filed: 05/07/24 17:55> History of Present Illness Chief Complaint: General Illness Narrative Narrative: 76-year-old female with past medical history of HTN, HLD, CKD, pancreatitis, hypothyroidism presents with 4 days of nausea and epigastric and right upper quadrant abdominal pain. She has frequent burping and occasional acid reflux. She has no vomiting. She is still able to eat and drink. She reports normal bladder and bowel movements. No melena or hematochezia. She has history of a cholecystectomy and hysterectomy. She does not smoke or drink alcohol. Yesterday morning she had a low-grade temperature of 100.0 F but has not had a fever today. PFS <RENETTA Santamaria - Last Filed: 05/07/24 17:55> [facility] Medical History Obesity Urinary urgency Wears glasses Wears dentures Alcohol use Arthritis Easy bruising Restless legs Dietary restriction History of diverticulitis Shortness of breath on exertion Chronic cough Leg cramps History of edema History of echocardiogram History of stress test History of colon polyps GERD (gastroesophageal reflux disease) BiPAP (biphasic positive airway pressure) dependence Pyelonephritis Non-smoker Low back pain ANISHA (obstructive sleep apnea) Asthma Diarrhea Diabetes Shoulder pain Hemorrhoids Kidney disease Cancer HTN (hypertension) Hyperlipidemia Home Medications ?Medication ?Instructions ?Recorded ?Last Taken ?Type multivitamin 1 tab PO DAILY #90 tabs 02/16/22 Unknown Rx potassium citrate 99 mg capsule 99 mg PO DAILY #90 caps 02/16/22 Unknown Rx cyanocobalamin (vitamin B-12) 1 tab PO DAILY 06/03/22 Unknown History magnesium gluconate 12.5 mg 250 mg PO DAILY 06/03/22 Unknown History magnesium (250 mg) tablet lovastatin 20 mg tablet 20 mg PO QHS cholesterol #90 tabs 03/23/23 Unknown Rx omeprazole 20 mg capsule,delayed 20 mg PO DAILY GERD #90 caps 03/23/23 Unknown Rx release ascorbate calcium (vitamin C) 500 500 mg PO DAILY 09/23/23 Unknown History mg tablet tirzepatide 15 mg/0.5 mL 15 mg (0.5 mL) subcut QWEEK #6 mL 02/07/24 Unknown Rx subcutaneous pen injector (Mounjaro) losartan 100 mg tablet 100 mg PO QDAY #30 tabs 03/23/24 Unknown Rx losartan 100 0.5 tab PO DAILY HTN 03/23/24 Unknown History mg-hydrochlorothiazide 12.5 mg tablet levothyroxine 200 mcg tablet 200 mcg PO .Mon-Sat #90 tabs 04/06/24 Unknown Rx Lantus Solostar U-100 Insulin 100 50 unit (0.5 mL) subcut DAILY #45 04/10/24 Unknown Rx unit/mL (3 mL) subcutaneous pen mL (insulin glargine) blood-glucose sensor (FreeStyle #6 ea 04/10/24 Unknown Rx Mary Ann 3 Plus Sensor device) insulin aspart 35 unit subcut TID #94.5 mL 04/13/24 Unknown Rx (niacinamide)(U-100) 100 unit/mL(3 mL) subcutaneous pen (Fiasp FlexTouch U-100 Insulin) famotidine 20 mg tablet (Pepcid) 20 mg PO BID 14 days #28 tabs 05/07/24 Unknown Rx Allergy/AdvReac Type Severity Reaction Status Date / Time ciprofloxacin (From Cipro) Allergy Mild Rash Verified 05/07/24 15:02 ondansetron HCl (From Zofran Allergy Rash Verified 05/07/24 15:02 (as hydrochloride)) oxycodone HCl (From Percocet) Allergy Rash Verified 05/07/24 15:02 Penicillins (PCN) Allergy Other Verified 05/07/24 15:02 propoxyphene napsylate (From Allergy Rash Verified 05/07/24 15:02 Darvocet-N 100) nickel AdvReac Intermediate Rash Verified 05/07/24 15:02 Family History Father Colon cancer Myocardial infarction Diabetes Hypertension Hyperlipemia Grandmother No problems noted. Mother Colon cancer Cancer Heart disease CVA (cerebral vascular accident) Diabetes Thyroid disorder Hypertension Myocardial infarction Hyperlipemia Brother Colon cancer Unknown Breast cancer 2 cousins Uncle Colon cancer Surgical History History of laparoscopy History of oral surgery H/O: hysterectomy History of cholecystectomy History of colonoscopy (~08/14/19) History of esophagogastroduodenoscopy (EGD) S/P colonoscopy S/P wrist surgery S/P hysterectomy Stone, kidney Status post laparoscopic cholecystectomy Social History Smoking Status: Never smoker second hand exposure: No alcohol intake: current alcohol intake frequency: holidays/special occasions only substance use type: does not use caffeine: Yes what type of physical activity do you participate in: none frequency: does not exercise ROS <RENETTA Santamaria - Last Filed: 05/07/24 17:55> ROS ED ROS Narrative Constitutional: Negative for fever, chills, malaise. CVS: Negative for chest pain. Respiratory: Negative for shortness of breath, cough. GI: Positive for abdominal pain, nausea. Negative for vomiting, diarrhea, constipation, melena, hematochezia. : Negative for dysuria, hematuria or frequency. EXAM <RENETTA Santamaria - Last Filed: 05/07/24 17:55> Physical Exam Narrative Exam Narrative: CONST: Patient sitting in no acute distress. EYES: Normal inspection. NECK: Normal inspection. RESP: No respiratory distress, CTAB. CVS: Regular rate and rhythm, no murmur, no gallop. ABD: Obese abdomen. Soft with midline epigastric tenderness, no guarding or rebound, nondistended. Back: Normal inspection, no CVA tenderness. SKIN: Color normal, no rash, warm, dry, intact. EXTREMITIES: Normal appearance, no pedal edema. NEURO: Alert and answering questions appropriately. PSYCH: Normal affect. Const Vital Signs: 05/07/24 15:03 05/07/24 15:16 05/07/24 16:37 Temperature 97.7 F L Temperature Source Oral Pulse Rate 62 67 Respiratory Rate 18 18 Respiratory Effort Normal Non-Labored Blood Pressure 140/64 H 156/76 H Blood Pressure Mean 89 102 Pulse Ox 99 100 Oxygen Delivery Method Room Air Room Air 05/07/24 17:50 Temperature 98.4 F Temperature Source Pulse Rate 79 Respiratory Rate 18 Respiratory Effort Blood Pressure 148/73 H Blood Pressure Mean 98 Pulse Ox 100 Oxygen Delivery Method <Dr. Bentley Cody DO - Last Filed: 05/07/24 17:58> Physical Exam Const Vital Signs: 05/07/24 15:03 05/07/24 15:16 05/07/24 16:37 Temperature 97.7 F L Temperature Source Oral Pulse Rate 62 67 Respiratory Rate 18 18 Respiratory Effort Normal Non-Labored Blood Pressure 140/64 H 156/76 H Blood Pressure Mean 89 102 Pulse Ox 99 100 Oxygen Delivery Method Room Air Room Air 05/07/24 17:50 Temperature 98.4 F Temperature Source Pulse Rate 79 Respiratory Rate 18 Respiratory Effort Blood Pressure 148/73 H Blood Pressure Mean 98 Pulse Ox 100 Oxygen Delivery Method [facility] <RENETTA Santamaria - Last Filed: 05/07/24 17:55> [facility] Narrative Medical decision making narrative: Differential includes but not limited to GERD, pancreatitis, diverticulitis 73-year-old female presents with several days of reflux, nausea, and epigastric pain. She appears well and nontoxic. Vital signs are stable. She has a normal cardiopulmonary exam. Abdomen is soft with epigastric tenderness. No peritoneal signs. Normal bowel sounds. CBC is within normal limits. Chemistry show normal electrolytes, BUN 27, creatinine 1.08 similar to previous. LFTs and lipase are normal. Urinalysis has bacteria but no pyuria and she is not symptomatic. CT of the abdomen/pelvis shows no acute abnormalities. Since patient reports a lot of belching and reflux symptoms I suspect this could be GERD. She is not on gastric medications. After results she was given IV Pepcid and prescribed Pepcid twice daily for home. I discussed return precautions and she was discharged in stable condition. Lab Data Attestation: I reviewed the patient's lab results. Labs: Laboratory Results - last 24 hr 05/07/24 15:30 WBC 8.3 RBC 5.20 Hgb 13.2 Hct 42.2 MCV 81.2 MCH 25.4 L MCHC 31.3 L RDW Std Deviation 43.3 RDW Coeff of Tara 14.9 H Plt Count 268 MPV 10.5 Immature Gran % (Auto) 0.100 Neut % (Auto) 60.4 Lymph % (Auto) 28.3 Barren % (Auto) 8.7 Eos % (Auto) 1.9 Baso % (Auto) 0.6 Absolute Neuts (auto) 5.0 Absolute Lymphs (auto) 2.34 Nucleated RBC % 0 Sodium 139 Potassium 4.1 Chloride 108 H Carbon Dioxide 26.0 Anion Gap 5 BUN 27 H Creatinine 1.08 H Estim Creat Clear Calc 58.05 Est GFR (MDRD) Af Amer 64 Est GFR (MDRD) Non-Af 53 L BUN/Creatinine Ratio 25.0 H Glucose 111 H Calcium 9.4 Total Bilirubin 0.30 AST 18 ALT 26 Alkaline Phosphatase 77 Total Protein 7.2 Albumin 3.2 Globulin 4.0 Albumin/Globulin Ratio 0.8 L Lipase 57 L Urine Color Yellow Urine Clarity Sl. Cloudy Urine pH 6.0 Ur Specific Jenkins 1.015 Urine Protein 15 H Urine Glucose (UA) Normal Urine Ketones Negative Urine Occult Blood Negative Urine Nitrite Negative Urine Bilirubin Negative Urine Urobilinogen Normal Ur Leukocyte Esterase 100 H Urine RBC 0 SEEN Urine WBC 0-5 SEEN Ur Squamous Epith Cells 0-5 SEEN Urine Bacteria 3+ Urine Mucus 0 SEEN Radiography Diagnostic Testing: Clinical Impression(s) from Imaging Studies Abdomen/Pelvis CT 05/07/24 15:20 IMPRESSION: 1. No acute CT abnormality in the abdomen and pelvis. 2. Hepatic steatosis. 3. Sigmoid diverticulosis with no evidence of diverticulitis One or more dose reduction techniques were used (e.g., Automated exposure control, adjustment of the mA and/or kV according to patient size, use of iterative reconstruction technique). Reading Location: [facility] <Dr. Bentley Cody, DO - Last Filed: 05/07/24 17:58> [facility] Narrative Medical decision making narrative: Differential includes but not limited to GERD, pancreatitis, diverticulitis 73-year-old female presents with several days of reflux, nausea, and epigastric pain. She appears well and nontoxic. Vital signs are stable. She has a normal cardiopulmonary exam. Abdomen is soft with epigastric tenderness. No peritoneal signs. Normal bowel sounds. CBC is within normal limits. Chemistry show normal electrolytes, BUN 27, creatinine 1.08 similar to previous. LFTs and lipase are normal. Urinalysis has bacteria but no pyuria and she is not symptomatic. CT of the abdomen/pelvis shows no acute abnormalities. Since patient reports a lot of belching and reflux symptoms I suspect this could be GERD. She is not on gastric medications. After results she was given IV Pepcid and prescribed Pepcid twice daily for home. I discussed return precautions and she was discharged in stable condition. ED attending note: I evaluated the patient in conjunction with the DEBBIE. I agree with his/her statements and above findings. I have personally performed a face to face assessment of the patient and have reviewed the DEBBIE Note. I performed a substantive portion of the visit including all aspects of the following. I personally saw the patient performed chart review, physical exam, reviewed labs, imaging (if obtained), and formulated a treatment and management plan. This note was generated with [employer] dictation software. It may contain incorrect words, spelling, and punctuation that were not noted in review of the chart prior to signing. Lab Data Labs: Laboratory Results - last 24 hr 05/07/24 15:30 WBC 8.3 RBC 5.20 Hgb 13.2 Hct 42.2 MCV 81.2 MCH 25.4 L MCHC 31.3 L RDW Std Deviation 43.3 RDW Coeff of Tara 14.9 H Plt Count 268 MPV 10.5 Immature Gran % (Auto) 0.100 Neut % (Auto) 60.4 Lymph % (Auto) 28.3 Barren % (Auto) 8.7 Eos % (Auto) 1.9 Baso % (Auto) 0.6 Absolute Neuts (auto) 5.0 Absolute Lymphs (auto) 2.34 Nucleated RBC % 0 Sodium 139 Potassium 4.1 Chloride 108 H Carbon Dioxide 26.0 Anion Gap 5 BUN 27 H Creatinine 1.08 H Estim Creat Clear Calc 58.05 Est GFR (MDRD) Af Amer 64 Est GFR (MDRD) Non-Af 53 L BUN/Creatinine Ratio 25.0 H Glucose 111 H Calcium 9.4 Total Bilirubin 0.30 AST 18 ALT 26 Alkaline Phosphatase 77 Total Protein 7.2 Albumin 3.2 Globulin 4.0 Albumin/Globulin Ratio 0.8 L Lipase 57 L Urine Color Yellow Urine Clarity Sl. Cloudy Urine pH 6.0 Ur Specific Jenkins 1.015 Urine Protein 15 H Urine Glucose (UA) Normal Urine Ketones Negative Urine Occult Blood Negative Urine Nitrite Negative Urine Bilirubin Negative Urine Urobilinogen Normal Ur Leukocyte Esterase 100 H Urine RBC 0 SEEN Urine WBC 0-5 SEEN Ur Squamous Epith Cells 0-5 SEEN Urine Bacteria 3+ Urine Mucus 0 SEEN Radiography Diagnostic Testing: Clinical Impression(s) from Imaging Studies Abdomen/Pelvis CT 05/07/24 15:20 IMPRESSION: 1. No acute CT abnormality in the abdomen and pelvis. 2. Hepatic steatosis. 3. Sigmoid diverticulosis with no evidence of diverticulitis One or more dose reduction techniques were used (e.g., Automated exposure control, adjustment of the mA and/or kV according to patient size, use of iterative reconstruction technique). Reading Location: [facility] Discharge Plan Triage Chief Complaint: General Illness ED Midlevel Provider: Annel Calvert ED Provider: Bentley Cody Dx/Rx/DC Orders Clinical Impression: Abdominal pain, epigastric, Chronic gastroesophageal reflux disease Instructions: ED GERD (Adult), ED Epigastric Pain Uncertain Cause Prescriptions: New famotidine [Pepcid] 20 mg tablet 20 mg PO BID 14 Days Qty: 28 0RF No Action ascorbate calcium (vitamin C) 500 mg tablet 500 mg PO DAILY losartan-hydrochlorothiazide 100-12.5 mg tablet 0.5 tab PO DAILY losartan 100 mg tablet 100 mg PO QDAY Qty: 30 5RF cyanocobalamin (vitamin B-12) Tablet,Chewable 1 tab PO DAILY magnesium gluconate 12.5 mg magne- sium (250 mg) Tablet 250 mg PO DAILY multivitamin Tablet 1 tab PO DAILY Qty: 90 3RF potassium citrate 99 mg capsule 99 mg PO DAILY Qty: 90 3RF lovastatin 20 mg tablet 20 mg PO QHS Qty: 90 3RF omeprazole 20 mg capsule,delayed release(DR/EC) 20 mg PO DAILY Qty: 90 3RF Mounjaro 15 mg/0.5 mL pen injector 15 mg subcut QWEEK Qty: 6 1RF levothyroxine 200 mcg tablet 200 mcg PO .Mon-Sat Qty: 90 1RF insulin glargine [Lantus Solostar U-100 Insulin] 100 unit/mL (3 mL) insulin pen 50 unit subcut DAILY Qty: 45 1RF (DME) FreeStyle Mary Ann 3 Plus Sensor Device See Rx Instructions .Route Qty: 6 1RF Rx Instructions: As directed Fiasp FlexTouch U-100 Insulin 100 unit/mL (3 mL) insulin pen 35 unit subcut TID Qty: 94.5 1RF Primary Care Provider: Allison Gomez Referrals: Allison Gomez MD [Primary Care Provider] - Activity Restrictions/Additional Instructions: Your labs and CT scan were normal and did not show a clear cause of your pain. This could be related to heartburn/gastroesophageal reflux disease and to have upper abdominal pain and nausea and reflux. I prescribed Pepcid to take twice a day. Avoid spicy foods, citrus foods, tomato-based foods etc. Follow-up with your primary care doctor. Return if symptoms worsen. Print Language: Ghanaian Disposition Disposition: Home, Self Care Discharge Date/Time: 05/07/24 17:51
[2024-05-07] MEDS: 0.9% Normal Saline (1000mL) 1,000 ML 999 ML IV (15:31)
[2024-05-07] MEDS: Metoclopramide 10 MG/2 ML Vial 5 MG IV (15:31)
[2024-05-07] MEDS: Morphine 4 MG/ML Syringe IV ×2 (15:31→16:33)
[2024-05-07 15:45] LABS: Mucous, Urine 0 SEEN /hpf (<or=2+)
[2024-05-07 15:48] LABS: Absolute Lymphocyte Count 2.34 X10^3/uL (0.83-4.51); Basophil# 0.05 X10^3/uL; Basophil% 0.6 % (0-1); Eosinophil# 0.16 X10^3/uL; Eosinophils% 1.9 % (0-5); Hematocrit 42.2 % (37-47); Hemoglobin 13.2 g/dL (12.0-15.0); Lymphocyte # 2.34 X10^3/ul (0.83-4.51); Lymphocyte % 28.3 % (19-41); Mean Corp Hgb Conc 31.3 g/dL (32-36); Mean Corpuscular Hgb 25.4 pg (27.0-32.0); Mean Corpuscular Volume 81.2 fL (81-99); Mean Platelet Vol. 10.5 fl (6.2-12.0); Monocyte# 0.72 X10^3/uL; Monocyte% 8.7 % (0-10); NRBC Flagged by Analyzer 0 % (0-5); Neutrophil # 4.98 X10^3/uL (2.7-7.7); Neutrophil % 60.4 % (47-70); Platelet Count 268 K/mm3 (150-450); RBC Distribution Width CV 14.9 % (11.6-14.6); RBC Distribution Width SD 43.3 fl (35.1-43.9); White Blood Count 8.3 K/mm3 (4.4-11.0)
[2024-05-07 15:49] LABS: Color, Urine Yellow (Yellow); Glucose, Dipstick Normal (Normal); Ketone-Dipstick Negative (Negative); Leukocyte Esterase-Dipstick 100 /ul (Negative); Nitrite-Dipstick Negative (Negative); Occult Blood-Urine Negative /ul (Negative); Protein-Dipstick 15 mg/dl (Negative); Specific Gravity, Urine 1.015 (1.002-1.030); Urine Bilirubin Dipstick Negative (Negative); Urine Clarity Sl. Cloudy (Clear); Urine Urobilinogen Normal (Normal)
[2024-05-07 16:00] LABS: Bacteria 3+ /hpf (None Seen); Red Blood Cells-Urine 0 SEEN /hpf (0-5); Squamous Epithelial Cells - UA 0-5 SEEN /hpf (5-10); White Blood Cells 0-5 SEEN /hpf (0-5)
--- NOTE | 2024-05-07 16:25 | ED.RN ---
pt called out and BS was 65. Spoke with Dr Cody and he was ok with juice. Pt was given orange juice. Pt also asked for more pain meds and Dr Cody is aware of this as well. Dr Cody would like a BS in an hour.
[2024-05-07] MEDS: Ketorolac 15 MG/ML Vial IV (16:32)
[2024-05-07 16:37] VITALS: BP 156/76; PULSE 67; RESP 18; O2SAT 100
[2024-05-07 16:45] LABS: ALB/GLOB Ratio 0.8 RATIO (0.9-2.4); AST(SGOT) 18 U/L (15-37); Alanine Aminotransfer ALT/SGPT 26 U/L (13-56); Albumin, Serum 3.2 g/dL (3.2-5.0); Alkaline Phosphatase 77 U/L (45-117); Anion Gap 5 (5-15); BUN 27 mg/dL (7-18); Calcium,Total 9.4 mg/dL (8.5-10.1); Chloride 108 mmol/L (98-107); Creatinine, Serum 1.08 mg/dL (0.55-1.02); EST Glomerular Filtration Rate 53 mL/min (>60); Est Glom Filt Rate - Afr Amer 64 mL/min (>60); Estimated Creatinine Clearance 58.05 ml/min; Glucose 111 mg/dL (74-106); Lipase 57 U/L (73-393); Potassium 4.1 mmol/L (3.5-5.1); Protein, Total 7.2 g/dL (6.4-8.2); Sodium Level 139 mmol/L (136-145)
[2024-05-07] MEDS: Famotidine 200 MG/20 ML MDV 20 MG in 0.9% Normal Saline (Pres. free 8 ML 300 MG IV (17:46)
[2024-05-07 17:50] VITALS: BP 148/73; PULSE 79; RESP 18; TEMP 36.9; O2SAT 100
== END 2024-05-07 17:51 | disposition home or self-care (01) ==
PROVIDERS: Physician Assistant; Emergency Provider Emergency Medicine; PCP Internal Medicine; Visit Provider Emergency Medicine
DX: R10.13 Epigastric pain (principal); E11.22 Type 2 diabetes mellitus with diabetic chronic kidney disease; Z79.4 Long term (current) use of insulin; K21.9 Gastro-esophageal reflux disease without esophagitis; E78.5 Hyperlipidemia, unspecified; I12.9 Hypertensive chronic kidney disease with stage 1 through stage 4 chronic kidney disease, or unspecified chronic kidney disease; Z90.710 Acquired absence of both cervix and uterus; N18.9 Chronic kidney disease, unspecified; Z90.49 Acquired absence of other specified parts of digestive tract; G47.33 Obstructive sleep apnea (adult) (pediatric); Z99.81 Dependence on supplemental oxygen; Z79.899 Other long term (current) drug therapy
CPT/HCPCS: 74177; 80053; 81001; 83690; 85025; 96361; 96374; 96375; 99283; Q9967; A4216

== ENCOUNTER → 2024-06-26 | Outpatient (CLI) | payer MEDICARE, SELFPAY ==
[2024-06-26 18:35] LABS: CRP 5.99 mg/L (0.0-3.0)
[2024-06-26 19:10] LABS: Absolute Lymphocyte Count 2.06 X10^3/uL (0.83-4.51); Absolute Neutrophil Count 5.7 X10^3/uL (2.0-7.7); Basophil# 0.05 X10^3/uL; Basophil% 0.6 % (0-1); Eosinophil# 0.19 X10^3/uL; Eosinophils% 2.2 % (0-5); Hematocrit 40.4 % (37-47); Hemoglobin 12.6 g/dL (12.0-15.0); Lymphocyte # 2.06 X10^3/ul (0.83-4.51); Lymphocyte % 23.5 % (19-41); Mean Corp Hgb Conc 31.2 g/dL (32-36); Mean Corpuscular Hgb 25.8 pg (27.0-32.0); Mean Corpuscular Volume 82.6 fL (81-99); Mean Platelet Vol. 10.6 fl (6.2-12.0); Monocyte# 0.74 X10^3/uL; Monocyte% 8.5 % (0-10); NRBC Flagged by Analyzer 0 % (0-5); Neutrophil # 5.69 X10^3/uL (2.7-7.7); Platelet Count 231 K/mm3 (150-450); RBC Distribution Width CV 15.6 % (11.6-14.6); RBC Distribution Width SD 47.2 fl (35.1-43.9); Red Blood Count 4.89 M/mm3 (4.2-5.4); White Blood Count 8.8 K/mm3 (4.4-11.0)
[2024-06-26 20:12] LABS: Erythrocyte Sedimentation Rate 26 mm/hr (0-30)
[2024-06-28 16:09] LABS: PROEL- A/G Ratio 1.1 (0.7-1.7); PROEL- Albumin 3.2 g/dL (2.9-4.4); PROEL- Alpha-1 Globulin 0.2 g/dL (0.0-0.4); PROEL- Alpha-2 Globulin 0.9 g/dL (0.4-1.0); PROEL- Gamma Globulin 0.8 g/dL (0.4-1.8); PROEL- Globulin, Total 2.9 g/dL (2.2-3.9); PROEL- TOTAL PROTEIN 6.1 g/dL (6.0-8.5); PROEL-M-Spike Not Observed g/dL (Not Observed)
== END | disposition home or self-care (01) ==
LOC: LAB 15:59
PROVIDERS: PCP Internal Medicine; Referring Provider Orthopaedic Surgery; Visit Provider Orthopaedic Surgery
DX: T84.54XA Infection and inflammatory reaction due to internal left knee prosthesis, initial encounter (principal)
CPT/HCPCS: 36415; 84165; 85025; 85652; 86140

== ENCOUNTER → 2024-07-11 | Outpatient (CLI) | payer MEDICARE, SELFPAY ==
[2024-07-11 15:39] LABS: Absolute Lymphocyte Count 2.03 X10^3/uL (0.83-4.51); Absolute Neutrophil Count 4.5 X10^3/uL (2.0-7.7); Basophil# 0.04 X10^3/uL; Basophil% 0.5 % (0-1); Eosinophil# 0.14 X10^3/uL; Eosinophils% 1.8 % (0-5); Hematocrit 40.3 % (37-47); Hemoglobin 12.8 g/dL (12.0-15.0); Lymphocyte # 2.03 X10^3/ul (0.83-4.51); Lymphocyte % 26.4 % (19-41); Mean Corp Hgb Conc 31.8 g/dL (32-36); Mean Corpuscular Hgb 26.2 pg (27.0-32.0); Mean Corpuscular Volume 82.6 fL (81-99); Mean Platelet Vol. 10.7 fl (6.2-12.0); Monocyte# 0.91 X10^3/uL; Monocyte% 11.8 % (0-10); NRBC Flagged by Analyzer 0 % (0-5); Neutrophil # 4.53 X10^3/uL (2.7-7.7); Neutrophil % 59.1 % (47-70); Platelet Count 229 K/mm3 (150-450); RBC Distribution Width CV 15.4 % (11.6-14.6); RBC Distribution Width SD 46.1 fl (35.1-43.9); Red Blood Count 4.88 M/mm3 (4.2-5.4); White Blood Count 7.7 K/mm3 (4.4-11.0)
[2024-07-11 16:17] LABS: CRP 5.13 mg/L (0.0-3.0)
[2024-07-11 18:09] LABS: Erythrocyte Sedimentation Rate 37 mm/hr (0-30)
[2024-07-13 23:07] LABS: Protein C, Functional 135 % (73-180)
== END | disposition home or self-care (01) ==
LOC: LAB 14:04
PROVIDERS: PCP Internal Medicine; Referring Provider Orthopaedic Surgery; Visit Provider Orthopaedic Surgery
DX: T84.54XA Infection and inflammatory reaction due to internal left knee prosthesis, initial encounter (principal)
CPT/HCPCS: 36415; 85025; 85303; 85652; 86140

== ENCOUNTER → 2024-07-19 | Outpatient (CLI) | payer MEDICARE, SELFPAY ==
--- NOTE | 2024-07-19 14:56 | NEURO_ITS ---
NCS and/or EMG Patient Report Ordering Doctor: Jad Joe DATE OF SERVICE: 07/19/24 Presents with complaints of sharp shooting pains in the left lower limb as well as numbness and tingling in both feet. Electrodiagnostic findings: Left peroneal motor nerve demonstrates prolonged latency with normal amplitude and reduced conduction velocity. Right peroneal motor nerve demonstrates normal distal latency and amplitude with reduced conduction velocity. Tibial motor response demonstrates prolonged latency bi laterally with reduced amplitude and conduction velocity. Prolonged left sural latency is noted prolonged superficial peroneal latency bilaterally. H reflex is within normal limits. F waves are prolonged bilaterally. Needle EMG testing was performed the lower limbs. All muscles tested showed no evidence of denervation with normal motor unit potentials. Electrodiagnostic impression: This an abnormal study in the lower limbs. 1. 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 2. No electrodiagnostic evidence is noted for lumbosacral radiculopathy. Multi Select Codes Neurology Neurology Interp Codes: 97061-82 Musc test done w/n test comp (interp) (2) and 87531-64 Nrv cndj test 9-10 studies (interp)
== END | disposition home or self-care (01) ==
PROVIDERS: PCP Internal Medicine; Referring Provider Podiatrist; Visit Provider Podiatrist
DX: R20.2 Paresthesia of skin (principal)
CPT/HCPCS: 95886; 95911

== ENCOUNTER → 2024-08-17 | Outpatient (CLI) | payer MEDICARE, SELFPAY ==
[2024-08-17 13:37] LABS: Absolute Lymphocyte Count 2.41 X10^3/uL (0.83-4.51); Absolute Neutrophil Count 5.3 X10^3/uL (2.0-7.7); Basophil# 0.04 X10^3/uL; Basophil% 0.5 % (0-1); Eosinophil# 0.17 X10^3/uL; Hematocrit 40.9 % (37-47); Hemoglobin 12.8 g/dL (12.0-15.0); Lymphocyte # 2.41 X10^3/ul (0.83-4.51); Mean Corp Hgb Conc 31.3 g/dL (32-36); Mean Platelet Vol. 10.3 fl (6.2-12.0); Monocyte# 0.63 X10^3/uL; Monocyte% 7.3 % (0-10); NRBC Flagged by Analyzer 0 % (0-5); Neutrophil # 5.34 X10^3/uL (2.7-7.7); Neutrophil % 61.9 % (47-70); Platelet Count 255 K/mm3 (150-450); RBC Distribution Width CV 15.6 % (11.6-14.6); RBC Distribution Width SD 46.6 fl (35.1-43.9); Red Blood Count 4.93 M/mm3 (4.2-5.4); White Blood Count 8.6 K/mm3 (4.4-11.0)
[2024-08-17 13:42] LABS: Erythrocyte Sedimentation Rate 21 mm/hr (0-30)
[2024-08-17 14:25] LABS: CRP 5.12 mg/L (0.0-3.0)
[2024-08-21 17:08] LABS: PROEL- A/G Ratio 1.3 (0.7-1.7); PROEL- Albumin 3.7 g/dL (2.9-4.4); PROEL- Alpha-1 Globulin 0.2 g/dL (0.0-0.4); PROEL- Alpha-2 Globulin 0.9 g/dL (0.4-1.0); PROEL- Beta Globulin 1.1 g/dL (0.7-1.3); PROEL- Gamma Globulin 0.8 g/dL (0.4-1.8); PROEL- Globulin, Total 2.9 g/dL (2.2-3.9); PROEL- TOTAL PROTEIN 6.6 g/dL (6.0-8.5); PROEL-M-Spike Not Observed g/dL (Not Observed)
== END | disposition home or self-care (01) ==
LOC: LAB 13:06
PROVIDERS: PCP Internal Medicine; Referring Provider Orthopaedic Surgery; Visit Provider Orthopaedic Surgery
DX: T84.54XA Infection and inflammatory reaction due to internal left knee prosthesis, initial encounter (principal)
CPT/HCPCS: 36415; 84165; 85025; 85652; 86140

== ENCOUNTER → 2024-09-18 | Outpatient (CLI) | payer MEDICARE, SELFPAY | END | disposition home or self-care (01) | LOC: OPBI 15:03 | PROVIDERS: PCP Internal Medicine; Referring Provider Internal Medicine; Visit Provider Internal Medicine | DX: Z12.31 Encounter for screening mammogram for malignant neoplasm of breast (principal) | CPT/HCPCS: 77063; 77067 ==

== ENCOUNTER → 2024-09-21 | Outpatient (CLI) | payer MEDICARE, SELFPAY ==
[2024-09-21 13:47] LABS: Mucous, Urine 0 SEEN /hpf (<or=2+); Red Blood Cells-Urine 0 SEEN /hpf (0-5)
[2024-09-21 13:57] LABS: Color, Urine Yellow (Yellow); Glucose, Dipstick 50 mg/dl (Normal); Ketone-Dipstick Negative (Negative); Leukocyte Esterase-Dipstick 25 /ul (Negative); Nitrite-Dipstick Positive (Negative); Occult Blood-Urine Negative /ul (Negative); Protein-Dipstick 15 mg/dl (Negative); Specific Gravity, Urine 1.015 (1.002-1.030); Urine Bilirubin Dipstick Negative (Negative)
[2024-09-21 14:16] LABS: Squamous Epithelial Cells - UA 0-5 SEEN /hpf (5-10)
== END | disposition home or self-care (01) ==
LOC: PAVLAB 13:17
PROVIDERS: PCP Internal Medicine; Referring Provider Internal Medicine; Visit Provider Internal Medicine
DX: N30.01 Acute cystitis with hematuria (principal)
CPT/HCPCS: 81001; 87077; 87086; 87088; 87186

== ENCOUNTER 2024-09-26 19:33 | Emergency (ER) | payer MEDICARE, SELFPAY ==
[2024-09-26 19:33] VITALS: BP 158/61; PULSE 66; RESP 14; TEMP 36.6; O2SAT 98; BMI 46.3
[2024-09-26 19:35] VITALS: BP 158/61; PULSE 66; RESP 14; TEMP 36.6; O2SAT 98
--- NOTE | 2024-09-26 20:29 | CT_ITS ---
PROCEDURE: ABDOMEN/PELVIS WITHOUT CONT 09/26/2024 REASON FOR EXAM: PAIN TECHNIQUE: ABDOMEN/PELVIS WITHOUT CONT Noncontrast technique limits evaluation of the abdominal and pelvic viscera. Coronal and Sagittal reconstruction series were provided. One or more dose reduction techniques were used (e.g., Automated exposure control, adjustment of the mA and/or kV according to patient size, use of iterative reconstruction technique). RADIATION DOSE SUMMARY: CTDlvol: 22.9 mGy DLP: 1220 mGycm COMPARISON: CT abdomen and pelvis on 05/07/2024 FINDINGS: Lung bases: Mild cardiomegaly with coronary calcifications. Lung bases are clear. Liver: Unremarkable Gallbladder: Surgically absent. Spleen: Unremarkable Pancreas: Normal size. No surrounding inflammation. Adrenals: Unremarkable Kidneys: Punctate nonobstructing stone in the right kidney measuring 2 mm, unchanged. No hydronephrosis. Bladder: Unremarkable Reproductive Organs: Prior hysterectomy. Adnexal regions are unremarkable. Bowel: No obstruction or inflammation. Colonic diverticulosis. Normal appendix. Lymph nodes: There are few prominent subcentimeter retroperitoneal lymph nodes, unchanged. Vasculature: Mild diffuse atherosclerotic calcifications are noted. Bones: Degenerative changes of the spine. Soft tissues: Stranding in the abdominal wall, unchanged and possibly related to subcutaneous injections. CT/Abdomen/Pelvis without Cont IMPRESSION: No acute intra-abdominal abnormality. Reading Location: [id number]
--- NOTE | 2024-09-26 20:29 | ED.VIS.FEGU ---
HPI HPI - Female History of Present Illness Chief Complaint: Complaint Informant: patient Narrative Narrative: 73-year-old female history of hypertension, UTIs with some being drug-resistant ESBL, chronic kidney disease diabetes. Was diagnosed a UTI about 10+ days ago. Started on Macrobid. Took it for 7 days. Finished it a week ago last Wednesday. Was not feeling better. Followed up with her primary care physician. He put her on 7 more days of Macrobid to the urine culture. Urine cultures returned ESBL E. coli sensitive to Bactrim and IV antibiotics. Patient house complaining of flank pain and some nausea. Has had kidney stones in the past. Prior similar symptoms: Yes Recent Illness/Hospitalization: No PFSH PFS Medical History History of ESBL E. coli infection Obesity Urinary urgency Wears glasses Wears dentures Alcohol use Arthritis Easy bruising Restless legs Dietary restriction History of diverticulitis Shortness of breath on exertion Chronic cough Leg cramps History of edema History of echocardiogram History of stress test History of colon polyps GERD (gastroesophageal reflux disease) BiPAP (biphasic positive airway pressure) dependence Pyelonephritis Non-smoker Low back pain ANISHA (obstructive sleep apnea) Asthma Diarrhea Diabetes Shoulder pain Hemorrhoids Kidney disease Cancer HTN (hypertension) Hyperlipidemia Home Medications ?Medication ?Instructions ?Recorded ?Last Taken ?Type multivitamin 1 tab PO DAILY #90 tabs 02/16/22 Unknown Rx potassium citrate 99 mg capsule 99 mg PO DAILY #90 caps 02/16/22 Unknown Rx cyanocobalamin (vitamin B-12) 1 tab PO DAILY 06/03/22 Unknown History magnesium gluconate 12.5 mg 250 mg PO DAILY 06/03/22 Unknown History magnesium (250 mg) tablet lovastatin 20 mg tablet 20 mg PO QHS cholesterol #90 tabs 03/23/23 Unknown Rx omeprazole 20 mg capsule,delayed 20 mg PO DAILY GERD #90 caps 03/23/23 Unknown Rx release ascorbate calcium (vitamin C) 500 500 mg PO DAILY 09/23/23 Unknown History mg tablet losartan 100 mg tablet 100 mg PO QDAY #30 tabs 03/23/24 Unknown Rx Lantus Solostar U-100 Insulin 100 50 unit (0.5 mL) subcut DAILY #45 04/10/24 Unknown Rx unit/mL (3 mL) subcutaneous pen mL (insulin glargine) blood-glucose sensor (FreeStyle #6 ea 04/10/24 Unknown Rx Mary Ann 3 Plus Sensor device) insulin aspart 35 unit subcut TID #94.5 mL 04/13/24 Unknown Rx (niacinamide)(U-100) 100 unit/mL(3 mL) subcutaneous pen (Fiasp FlexTouch U-100 Insulin) famotidine 20 mg tablet (Pepcid) 20 mg PO BID 14 days #28 tabs 05/07/24 Unknown Rx tirzepatide 15 mg/0.5 mL 15 mg (0.5 mL) subcut QWEEK #6 mL 07/24/24 Unknown Rx subcutaneous pen injector (Mounjaro) levothyroxine 200 mcg tablet 200 mcg PO .Mon-Sat #90 tabs 07/31/24 Unknown Rx nitrofurantoin 100 mg PO BID #14 caps 09/22/24 Unknown Rx monohydrate/macrocrystals 100 mg capsule (Macrobid) sulfamethoxazole 800 1 tab PO BID 7 days #14 tabs 09/26/24 Unknown Rx mg-trimethoprim 160 mg tablet (Bactrim DS) Allergy/AdvReac Type Severity Reaction Status Date / Time ciprofloxacin (From Cipro) Allergy Mild Rash Verified 09/26/24 19:36 ondansetron HCl (From Zofran Allergy Rash Verified 09/26/24 19:36 (as hydrochloride)) oxycodone HCl (From Percocet) Allergy Rash Verified 09/26/24 19:36 Penicillins (PCN) Allergy Other Verified 09/26/24 19:36 propoxyphene napsylate (From Allergy Rash Verified 09/26/24 19:36 Darvocet-N 100) nickel AdvReac Intermediate Rash Verified 09/26/24 19:36 Family History Father Colon cancer Myocardial infarction Diabetes Hypertension Hyperlipemia Grandmother No problems noted. Mother Colon cancer Cancer Heart disease CVA (cerebral vascular accident) Diabetes Thyroid disorder Hypertension Myocardial infarction Hyperlipemia Brother Colon cancer Unknown Breast cancer 2 cousins Uncle Colon cancer Surgical History History of laparoscopy History of oral surgery H/O: hysterectomy History of cholecystectomy History of colonoscopy (~08/14/19) History of esophagogastroduodenoscopy (EGD) S/P colonoscopy S/P wrist surgery S/P hysterectomy Stone, kidney Status post laparoscopic cholecystectomy Social History Smoking Status: Never smoker second hand exposure: No alcohol intake: current alcohol intake frequency: holidays/special occasions only substance use type: does not use caffeine: Yes what type of physical activity do you participate in: none frequency: does not exercise ROS ROS ED ROS Narrative Bilateral flank pain. Fever. Nausea. Constitutional Constitutional ED: Reports chills and fever(s) Eyes Eyes: Denies blurry vision ENT ENT ED: Denies ear pain Cardiovascular Cardiovascular: Denies chest pain Respiratory/Chest Respiratory/Chest: Denies cough or dyspnea Gastrointestinal Gastrointestinal: Reports nausea; Denies abdominal pain, diarrhea or vomiting Genitourinary Genitourinary ED: Denies dysuria or hematuria Musculoskeletal Musculoskeletal: Denies arthralgias or myalgias Integumentary Denies abscess or Abrasions Neurologic Neurologic: Denies headache(s) Psychiatric Psychiatric: Denies anxiety or depression Endocrine Endocrinology: Denies heat intolerance Hematologic/Lymphatic Hematologic/Lymphatic: Denies easy bleeding or easy bruising Allergic/Immunologic Allergic/Immunologic ED: Denies mouth swelling, tongue swelling or urticaria EXAM Physical Exam Narrative Exam Narrative: Well-appearing 73-year-old female. Vital signs stable afebrile. Does not look septic toxic. Currently no acute distress. H EENT exam pupils round react to light. Moist mucous membranes. Neck nontender no JVD. No lymphadenopathy. Lungs clear to auscultation bilaterally. Heart regular rhythm no murmur rate about 65. Chest wall ribs nontender. Abdomen soft nontender. No peritoneal signs. Moving all 4 extremities. Normal strength. Nontender. No edema or cords in the lower extremities. Back mild bilateral CVA tenderness. Neurologically patient is awake alert. Answer questions following commands. Const Vital Signs: 09/26/24 19:33 09/26/24 19:35 09/26/24 21:00 Temperature 97.8 F 97.8 F 97.8 F Temperature Source Oral Oral Oral Pulse Rate 66 66 70 Respiratory Rate 14 14 20 H Blood Pressure 158/61 H 158/61 H 126/59 H Blood Pressure Mean 93 93 81 Pulse Ox 98 98 96 Oxygen Delivery Method Room Air Room Air Room Air Positive well nourished and well developed; Negative for cachectic, contractures or unkempt General Appearance ED: well developed and NAD; Negative for unkempt, cachectic, contractures or pallor Nutritional Appearance: Negative for cachectic HEENT Reports moist mucous membranes Negative for trauma or tenderness Eyes PERRL and EOMs intact bilaterally General Eye ED: Negative for pale conjunctiva or scleral icterus Neck no lymphadenopathy, supple and no JVD Chest Wall inspection of chest normal and palpation of chest normal Resp normal respiratory effort and clear to auscultation bilaterally Cardio regular rate, regular rhythm, S1 normal heart sound, no murmurs and no JVD GI normal to inspection, nondistended, normoactive bowel sounds, soft to palpation, non-tender, non-distended and no masses Auscultation: normoactive bowel sounds Palpation: Negative for tender or guarding Back/Spine Negative for no CVA tenderness Back/Spine Narrative: Bilateral flank tenderness. Extremity normal to inspection and full ROM General Extremety ED: Negative for edema General Extremity: Negative for edema Neuro oriented x3 and CN's II-XII intact bilaterally Sensorium / Orientation: alert, oriented to person, oriented to place and oriented to time; Negative for confused or lethargic Motor Exam: strength 5/5 throughout Psych mental status grossly normal Appearance: Negative for unkempt Skin no rashes or lesions noted and no wounds General Skin Exam: Negative for jaundice or pallor Rashes: No rashes noted Trauma: Negative for other MDM MDM MDM Narrative Medical decision making narrative: 73-year-old female UTI with urine culture showing sensitivity to Bactrim and IV antibiotics. She has been on Macrobid. Screening labs to be obtained. CAT scan for possible kidney stone or renal abscess or pyelonephritis. Repeat exam patient is doing well at 10:10 PM. We went over her test results. She is comfortable being discharged to home. Given the recent culture even though her UA tonight looks good. She replaced on Bactrim DS p.o. 1 twice daily for a week. Follow-up with her primary care physician. The recent culture said that the bacteria was resistant to Macrobid which she has been on. She and daughter are comfortable with her being discharged to home. History & Record Review Discussion w/independent historian: Patient and Family Additional record(s) reviewed:: Prior inpatient record, Prior outpatient record, Prior ED visit and Prior labs Lab Data Attestation: I reviewed the patient's lab results. Lab results narrative: CBC normal white count of 10.5. H&H 13 and 40. Platelets 228. Electrolytes show sodium 136. Gap 12. BUN and creatinine of 31 and 1.25 which is her baseline. Glucose 112. UA shows no nitrites. No white or red cells. No bacteria. CAT scan shows no acute abnormality. Stones in the kidneys. No acute stone. No pyelonephritis. No renal abscess. Labs: Laboratory Results - last 24 hr 09/26/24 09/26/24 19:45 20:00 WBC 10.5 RBC 5.00 Hgb 13.0 Hct 40.6 MCV 81.2 MCH 26.0 L MCHC 32.0 RDW Std Deviation 42.4 RDW Coeff of Tara 14.6 Plt Count 220 MPV 10.5 Immature Gran % (Auto) 0.400 Neut % (Auto) 58.9 Lymph % (Auto) 29.5 [place] % (Auto) 8.5 Eos % (Auto) 2.2 Baso % (Auto) 0.5 Absolute Neuts (auto) 6.2 Absolute Lymphs (auto) 3.09 Nucleated RBC % 0 Sodium 136 Potassium 4.1 Chloride 99 Carbon Dioxide 24.0 Anion Gap 12 BUN 31 H Creatinine 1.25 H Estim Creat Clear Calc 51.40 Est GFR (MDRD) Non-Af 46 L BUN/Creatinine Ratio 24.6 H Glucose 112 H Calcium 9.6 Urine Color Yellow Urine Clarity Clear Urine pH 6.0 Ur Specific [place] 1.020 Urine Protein 15 H Urine Glucose (UA) Normal Urine Ketones Negative Urine Occult Blood Negative Urine Nitrite Negative Urine Bilirubin Negative Urine Urobilinogen Normal Ur Leukocyte Esterase 25 H Urine RBC 0 SEEN Urine WBC 0 SEEN Ur Squamous Epith Cells 0-5 SEEN Urine Bacteria 0 SEEN Urine Mucus 0 SEEN Radiography Diagnostic Testing: Clinical Impression(s) from Imaging Studies Abdomen/Pelvis CT 09/26/24 20:29 IMPRESSION: No acute intra-abdominal abnormality. Reading Location: [facility] Discharge Plan Triage Chief Complaint: Complaint ED Provider: Micah Young Dx/Rx/DC Orders Clinical Impression: Acute UTI, History of diabetes mellitus, History of chronic kidney disease Instructions: ED UTIs Women Prescriptions: New sulfamethoxazole-trimethoprim [Bactrim DS] 800-160 mg tablet 1 tab PO BID 7 Days Qty: 14 0RF No Action ascorbate calcium (vitamin C) 500 mg tablet 500 mg PO DAILY losartan 100 mg tablet 100 mg PO QDAY Qty: 30 5RF cyanocobalamin (vitamin B-12) Tablet,Chewable 1 tab PO DAILY magnesium gluconate 12.5 mg magne- sium (250 mg) Tablet 250 mg PO DAILY famotidine [Pepcid] 20 mg tablet 20 mg PO BID 14 Days Qty: 28 0RF multivitamin Tablet 1 tab PO DAILY Qty: 90 3RF potassium citrate 99 mg capsule 99 mg PO DAILY Qty: 90 3RF lovastatin 20 mg tablet 20 mg PO QHS Qty: 90 3RF omeprazole 20 mg capsule,delayed release(DR/EC) 20 mg PO DAILY Qty: 90 3RF insulin glargine [Lantus Solostar U-100 Insulin] 100 unit/mL (3 mL) insulin pen 50 unit subcut DAILY Qty: 45 1RF (DME) FreeStyle Mary Ann 3 Plus Sensor Device See Rx Instructions .Route Qty: 6 1RF Rx Instructions: As directed Fiasp FlexTouch U-100 Insulin 100 unit/mL (3 mL) insulin pen 35 unit subcut TID Qty: 94.5 1RF Mounjaro 15 mg/0.5 mL pen injector 15 mg subcut QWEEK Qty: 6 1RF levothyroxine 200 mcg tablet 200 mcg PO .Mon-Sat Qty: 90 3RF nitrofurantoin monohyd/m-cryst [Macrobid] 100 mg capsule 100 mg PO BID Qty: 14 0RF Rx Instructions: must administer with a meal/food Primary Care Provider: Allison Gomez Referrals: Allison Gomez MD [Primary Care Provider] - 3-5 Days Activity Restrictions/Additional Instructions: Plenty of fluids and rest. Cranberry juice. Tylenol for pain. Follow-up with your doctor. Stop the current antibiotic Macrobid. Start the Bactrim 1 pill twice a day till gone. Your labs and CAT scan look good tonight. Print Language: Afghan Disposition Disposition: Home, Self Care
[2024-09-26 20:40] LABS: Hematocrit 40.6 % (37-47); Hemoglobin 13.0 g/dL (12.0-15.0); Immature Granulocytes Count 0.040 X10^3/uL (0.0-0.0); Mean Corp Hgb Conc 32.0 g/dL (32-36); Mean Corpuscular Volume 81.2 fL (81-99); Mean Platelet Vol. 10.5 fl (6.2-12.0); NRBC Flagged by Analyzer 0 % (0-5); Platelet Count 220 K/mm3 (150-450); RBC Distribution Width CV 14.6 % (11.6-14.6); RBC Distribution Width SD 42.4 fl (35.1-43.9); Red Blood Count 5.00 M/mm3 (4.2-5.4); White Blood Count 10.5 K/mm3 (4.4-11.0)
[2024-09-26 20:42] LABS: Mucous, Urine 0 SEEN /hpf (<or=2+); Red Blood Cells-Urine 0 SEEN /hpf (0-5)
[2024-09-26 20:49] LABS: Color, Urine Yellow (Yellow); Glucose, Dipstick Normal (Normal); Ketone-Dipstick Negative (Negative); Leukocyte Esterase-Dipstick 25 /ul (Negative); Nitrite-Dipstick Negative (Negative); Occult Blood-Urine Negative /ul (Negative); Protein-Dipstick 15 mg/dl (Negative); Specific Gravity, Urine 1.020 (1.002-1.030); Urine Bilirubin Dipstick Negative (Negative)
[2024-09-26 21:00] VITALS: BP 126/59; PULSE 70; RESP 20; TEMP 36.6; O2SAT 96
[2024-09-26 21:08] LABS: Squamous Epithelial Cells - UA 0-5 SEEN /hpf (5-10)
[2024-09-26 21:21] LABS: Anion Gap 12 (5-15); BUN 31 mg/dL (4-19); BUN/Creat Ratio 24.6 RATIO (10-20); Calcium,Total 9.6 mg/dL (7.6-11.0); Carbon Dioxide 24.0 mmol/L (21.0-32.0); Chloride 99 mmol/L (98-108); Estimated Creatinine Clearance 51.40 ml/min (50-250); Glucose 112 mg/dL (70-99); Potassium 4.1 mmol/L (3.3-5.1)
[2024-09-26] MEDS: Smz/Tmp Ds Tablet 1 TABLET PO (22:21)
[2024-09-26 22:22] VITALS: BP 126/59; PULSE 70; RESP 20; TEMP 36.6; O2SAT 96
== END 2024-09-26 22:22 | disposition home or self-care (01) ==
PROVIDERS: Emergency Provider Emergency Medicine; PCP Internal Medicine; Visit Provider Emergency Medicine
DX: N39.0 Urinary tract infection, site not specified (principal); E11.22 Type 2 diabetes mellitus with diabetic chronic kidney disease; Z79.4 Long term (current) use of insulin; N18.9 Chronic kidney disease, unspecified; I12.9 Hypertensive chronic kidney disease with stage 1 through stage 4 chronic kidney disease, or unspecified chronic kidney disease; Z90.710 Acquired absence of both cervix and uterus; E78.5 Hyperlipidemia, unspecified; Z99.81 Dependence on supplemental oxygen; K21.9 Gastro-esophageal reflux disease without esophagitis; Z79.899 Other long term (current) drug therapy; Z90.49 Acquired absence of other specified parts of digestive tract
CPT/HCPCS: 74176; 80048; 81001; 85025; 96374; 99283; A4216; J2405

== ENCOUNTER 2024-09-28 19:06 | Emergency (ER) | payer MEDICARE, SELFPAY ==
[2024-09-28 19:07] VITALS: BP 129/46; PULSE 64; RESP 18; TEMP 36.8; O2SAT 98; BMI 46.0
[2024-09-28 19:23] LABS: Mucous, Urine 0 SEEN /hpf (<or=2+)
[2024-09-28 19:27] LABS: Color, Urine Yellow (Yellow); Glucose, Dipstick Normal (Normal); Ketone-Dipstick Negative (Negative); Leukocyte Esterase-Dipstick 25 /ul (Negative); Nitrite-Dipstick Negative (Negative); Occult Blood-Urine Negative /ul (Negative); Protein-Dipstick 15 mg/dl (Negative); Specific Gravity, Urine 1.010 (1.002-1.030); Urine Bilirubin Dipstick Negative (Negative)
--- NOTE | 2024-09-28 19:58 | CT_ITS ---
PROCEDURE: ABDOMEN/PELVIS WITHOUT CONT 09/28/2024 REASON FOR EXAM: PAIN TECHNIQUE: ABDOMEN/PELVIS WITHOUT CONT Noncontrast technique limits evaluation of the abdominal and pelvic viscera. Coronal and Sagittal reconstruction series were provided. One or more dose reduction techniques were used (e.g., Automated exposure control, adjustment of the mA and/or kV according to patient size, use of iterative reconstruction technique). RADIATION DOSE SUMMARY: CTDlvol: 22.8 mGy DLP: 1275 mGycm COMPARISON: CT abdomen and pelvis on 09/26/2024 FINDINGS: Lung bases: Mild dependent atelectasis. Multivessel coronary calcification. Liver: Unremarkable Gallbladder: Surgically absent. Spleen: Unremarkable Pancreas: Normal size. No surrounding inflammation. Adrenals: Unremarkable Kidneys: Tiny nonobstructing stone in the right kidney measuring 2 mm, unchanged. No left-sided stone. No hydronephrosis on either side. Bladder: Unremarkable Reproductive Organs: Prior hysterectomy. Adnexal regions are unremarkable. Bowel: No obstruction or inflammation. Colonic diverticulosis. Normal appendix. Lymph nodes: No suspicious lymph node enlargement. Prominent subcentimeter retroperitoneal nodes remain unchanged. Vasculature: Mild diffuse atherosclerotic calcifications are noted. Bones: Degenerative changes of the spine. Soft tissues: Stranding in the abdominal wall, unchanged and which may be related to subcutaneous injections. CT/Abdomen/Pelvis without Cont IMPRESSION: 1. No acute intra-abdominal abnormality. 2. Nonobstructing stone in the right kidney measuring 2 mm, unchanged. Reading Location: [id number]
[2024-09-28 20:04] LABS: Red Blood Cells-Urine 0-5 SEEN /hpf (0-5); Squamous Epithelial Cells - UA 0-5 SEEN /hpf (5-10)
[2024-09-28 20:09] VITALS: BP 140/61; PULSE 63; RESP 12; TEMP 37.1; O2SAT 98
[2024-09-28] MEDS: 0.9% Normal Saline (1000mL) 1,000 ML 999 ML IV (20:11)
--- NOTE | 2024-09-28 20:14 | EDS_ITS ---
HPI HPI - Female History of Present Illness Chief Complaint: Complaint Narrative Narrative: Chief complaint and HPI: Dysuria. History taken by patient as well as medical record. 73-year-old female with past medical history of HTN, UTIs with some being drug-resistant ESBL, CKD, DM 2 presents for evaluation of dysuria. Associated symptoms are flank pain and nausea. Patient states she was diagnosed with a UTI multiple days ago. Started on Macrobid. Took it for 7 days. Finished it a week ago last Wednesday. Followed up with PCP who stated she still had a UTI and placed her on another 7-day course of Macrobid. Urine cultures returned ESBL E. coli sensitive to Bactrim and IV antibiotics. Patient was seen in our emergency department on 09/26 for same complaint. At that time she had laboratory workup that was relatively unremarkable. She did CT abdomen pelvis that was negative. She was discharged home on Bactrim. Patient states her symptoms have not improved which is why she presents. She denies any fever, chills, chest pain, shortness of breath. Review of systems: See HPI Medications: As listed on the chart Allergies: As listed on the chart PFSH: Per chart Vital signs: As listed on the chart. Reviewed. Physical exam: Gen: A&O x3, NAD Head: Normocephalic, atraumatic Eyes: No sclera icterus, conjunctiva clear ENT: Moist mucous membranes Neck: Trachea midline, No JVD CV: RRR, no murmurs, no peripheral edema Resp: Lungs CTA BL, no w/r/c GI: Abd soft, non-distended, non-tender, no r/r/g : No CVA tenderness, paraspinal musculature of the lumbar spine tender to palpation bilaterally Musc: Full ROM, no deformity Skin: Warm, dry Neuro: Alert, oriented, grossly intact, sensation intact Psych: Cooperative, appropriate mood and affect [facility] Medical History History of ESBL E. coli infection Obesity Urinary urgency Wears glasses Wears dentures Alcohol use Arthritis Easy bruising Restless legs Dietary restriction History of diverticulitis Shortness of breath on exertion Chronic cough Leg cramps History of edema History of echocardiogram History of stress test History of colon polyps GERD (gastroesophageal reflux disease) BiPAP (biphasic positive airway pressure) dependence Pyelonephritis Non-smoker Low back pain ANISHA (obstructive sleep apnea) Asthma Diarrhea Diabetes Shoulder pain Hemorrhoids Kidney disease Cancer HTN (hypertension) Hyperlipidemia Home Medications ?Medication ?Instructions ?Recorded ?Last Taken ?Type multivitamin 1 tab PO DAILY #90 tabs 08/03 Unknown Rx potassium citrate 99 mg capsule 99 mg PO DAILY #90 cap s 02/16/22 Unknown Rx cyanocobalamin (vitamin B-12) 1 tab PO DAILY 06/03/22 Unknown History magnesium gluconate 12.5 mg 250 mg PO DAILY 06/03/22 U nknown History magnesium (250 mg) tablet lovastatin 20 mg tablet 20 mg PO QHS cholesterol #90 tabs 03/23/23 Unknown Rx omeprazole 20 mg capsule,delayed 20 mg PO DAILY GERD # 90 caps 03/23/23 Unknown Rx release ascorbate calcium (vitamin C) 500 500 mg PO DAILY 09/12 04/07 Unknown History mg tablet blood-glucose sensor (FreeStyle #6 ea 04/10/24 Unknown Rx Mary Ann 3 Plus Sensor device) tirzepatide 15 mg/0.5 mL 15 mg (0.5 mL) subcut QWEEK #6 mL 07/24/24 Unknown Rx subcutaneous pen injector (Mounjaro) levothyroxine 200 mcg tablet 200 mcg PO .Mon-Sat #90 t abs 07/31/24 Unknown Rx nitrofurantoin 100 mg PO BID #14 caps 09/22 Unknown Rx monohydrate/macrocrystals 100 mg capsule (Macrobid) sulfamethoxazole 800 1 tab PO BID 7 days #14 tabs 09/26/24 Unknown Rx mg-trimethoprim 160 mg tablet (Bactrim DS) insulin aspart 15 unit subcut TID 09/28/24 Unknown History (niacinamide)(U-100) 100 unit/mL(3 mL) subcutaneous pen (Fiasp FlexTouch U-100 Insulin) insulin glargine 100 unit/mL (3 25 unit subcut DAILY 0 09/28/24 Unknown History mL) subcutaneous pen (Lantus Solostar U-100 Insulin) vitamin D3 125 mcg (5,000 1 cap PO DAILY 09/28/24 Unkn own History unit)-vitamin K2 180 mcg capsule (K2-D3 Max) Allergy/AdvReac Type Severity Reaction Status Date / Time ciprofloxacin (From Cipro) Allergy Mild Rash Verified 09/28/24 19:10 ondansetron HCl (From Zofran Allergy Rash Verified 09/28/24 19:10 (as hydrochloride)) oxycodone HCl (From Percocet) Allergy Rash Verified 09/28/24 19:10 Penicillins (PCN) Allergy Other Verified 09/28/24 19:10 propoxyphene napsylate (From Allergy Rash Verified 09/28/24 19:10 Darvocet-N 100) nickel AdvReac Intermediate Rash Verified 09/28/24 19:10 Family History Father Colon cancer Myocardial infarction Diabetes Hypertension Hyperlipemia Grandmother No problems noted. Mother Colon cancer Cancer Heart disease CVA (cerebral vascular accident) Diabetes Thyroid disorder Hypertension Myocardial infarction Hyperlipemia Brother Colon cancer Unknown Breast cancer 2 cousins Uncle Colon cancer Surgical History History of laparoscopy History of oral surgery H/O: hysterectomy History of cholecystectomy History of colonoscopy (~08/14/19) History of esophagogastroduodenoscopy (EGD) S/P colonoscopy S/P wrist surgery S/P hysterectomy Stone, kidney Status post laparoscopic cholecystectomy Social History Smoking Status: Never smoker second hand exposure: No alcohol intake: current alcohol intake frequency: holidays/special occasions only substance use type: does not use caffeine: Yes what type of physical activity do you participate in: none frequency: does not exercise EXAM Physical Exam Const Vital Signs: 09/28/24 19:07 09/28/24 20:09 09/28/24 21:07 Temperature 98.3 F 98.7 F Temperature Source Temporal Oral Pulse Rate 64 63 78 Respiratory Rate 18 12 12 Blood Pressure 129/46 H 140/61 H 129/65 H Blood Pressure Mean 73 87 86 Pulse Ox 98 98 98 Oxygen Delivery Method Room Air Room Air Room Air 09/28/24 22:59 Temperature Temperature Source Pulse Rate 71 Respiratory Rate 12 Blood Pressure 112/66 Blood Pressure Mean 81 Pulse Ox 98 Oxygen Delivery Method Room Air MDM MDM MDM Narrative Medical decision making narrative: 73-year-old female with past medical history of HTN, UTIs with some being drug- resistant ESBL, CKD, DM 2 presents for evaluation of dysuria. Associated symptoms are flank pain and nausea. History taken by patient as well as medical record. See HPI. Was seen in our emergency department for same complaint on 09/26. Discharged home on Bactrim. On chart review, I did review the previous urine culture from 09/21. Grew out ESBL E. coli sensitive to Bactrim and IV antibiotics. Differential diagnosis includes but is not limited to UTI, pyelonephritis, nephrolithiasis, electrolyte abnormality, MCKAYLA. NS bolus, morphine, Reglan ordered. Although patient did have CT abdomen pelvis that was unremarkable for urolithiasis on 09/26 it did have nephrolithiasis. Given that she states her back pain is worsening, I cannot rule out urolithiasis therefore CT abdomen pelvis without contrast will be performed with basic labs. CBC without leukocytosis or anemia. BMP shows MCKAYLA with a BUN of 37 and a creatinine of 1.68. Patient's creatinine on the was 1.25. UA negative for UTI. CT abdomen pelvis shows no acute intra-abdominal abnormality. Patient again has nonobstructing stone in the right kidney measuring 2 mm, unchanged. No hydronephrosis. At this point in time, no clear etiology for patient's pain however with her MCKAYLA, I do think that she would benefit from admission for continued IV hydration. I spoke with the hospitalist service, Dr. Wen. Declined admission. Agreed with the NS bolus but then discharge home. Will repeat BMP after fluids. Given that she does have tenderness to the paraspinal musculature of the lumbar spine, may be a muscle spasm. Will give cyclobenzaprine. On reevaluation patient's back pain has improved with cyclobenzaprine. Suspect myofascial spasm. Repeat BMP without change. Patient will be discharged home. Recommended drinking plenty of fluids over the next several days. Will give an outpatient order to have her BMP repeated in 2 days. Follow-up with primary care physician. She confirmed understand the plan. Patient stable to discharge home. Return precautions explained. Cyclobenzaprine prescription for possible myofascial spasm. Impression: 1. MCKAYLA on CKD 2. Recent UTI infection, resolved 3. Back pain Lab Data Labs: Laboratory Results - last 24 hr 09/28/24 09/28/24 09/28/24 19:20 20:05 22:22 WBC 9.9 RBC 4.87 Hgb 12.9 Hct 39.5 MCV 81.1 MCH 26.5 L MCHC 32.7 RDW Std Deviation 42.5 RDW Coeff of Tara 14.7 H Plt Count 219 MPV 10.3 Immature Gran % (Auto) 0.400 Neut % (Auto) 60.3 Lymph % (Auto) 26.1 [facility] % (Auto) 10.1 H Eos % (Auto) 2.6 Baso % (Auto) 0.5 Absolute Neuts (auto) 6.0 Absolute Lymphs (auto) 2.58 Nucleated RBC % 0 Sodium 136 138 Potassium 4.2 4.1 Chloride 101 103 Carbon Dioxide 24.7 24.9 Anion Gap 10 9 BUN 37 H 35 H Creatinine 1.68 H 1.69 H Estim Creat Clear Calc 38.12 L 37.89 L Est GFR (MDRD) Non-Af 32 L 32 L BUN/Creatinine Ratio 21.8 H 20.4 H Glucose 115 H 70 Calcium 9.7 9.1 Urine Color Yellow Urine Clarity Clear Urine pH 6.5 Ur Specific [place] 1.010 Urine Protein 15 H Urine Glucose (UA) Normal Urine Ketones Negative Urine Occult Blood Negative Urine Nitrite Negative Urine Bilirubin Negative Urine Urobilinogen Normal Ur Leukocyte Esterase 25 H Urine RBC 0-5 SEEN Urine WBC 0-5 SEEN Ur Squamous Epith Cells 0-5 SEEN Urine Bacteria 0 SEEN Urine Mucus 0 SEEN Radiography Diagnostic Testing: Clinical Impression(s) from Imaging Studies Abdomen/Pelvis CT 09/28/24 19:58 IMPRESSION: 1. No acute intra-abdominal abnormality. 2. Nonobstructing stone in the right kidney measuring 2 mm, unchanged. Reading Location: [id number] Discharge Plan Triage Chief Complaint: Complaint ED Provider: Branden Argueta Dx/Rx/DC Orders Prescriptions: No Action ascorbate calcium (vitamin C) 500 mg tablet 500 mg PO DAILY cyanocobalamin (vitamin B-12) Tablet,Chewable 1 tab PO DAILY magnesium gluconate 12.5 mg magne- sium (250 mg) Tablet 250 mg PO DAILY sulfamethoxazole-trimethoprim [Bactrim DS] 800-160 mg tablet 1 tab PO BID 7 Days Qty: 14 0RF K2-D3 Max 125 mcg (5,000 unit)-180 mcg capsule 1 cap PO DAILY insulin glargine [Lantus Solostar U-100 Insulin] 100 unit/mL (3 mL) insulin pen 25 unit subcut DAILY Fiasp FlexTouch U-100 Insulin 100 unit/mL (3 mL) insulin pen 15 unit subcut TID multivitamin Tablet 1 tab PO DAILY Qty: 90 3RF potassium citrate 99 mg capsule 99 mg PO DAILY Qty: 90 3RF lovastatin 20 mg tablet 20 mg PO QHS Qty: 90 3RF omeprazole 20 mg capsule,delayed release(DR/EC) 20 mg PO DAILY Qty: 90 3RF (DME) FreeStyle Mary Ann 3 Plus Sensor Device See Rx Instructions .Route Qty: 6 1RF Rx Instructions: As directed Mounjaro 15 mg/0.5 mL pen injector 15 mg subcut QWEEK Qty: 6 1RF levothyroxine 200 mcg tablet 200 mcg PO .Mon-Sat Qty: 90 3RF nitrofurantoin monohyd/m-cryst [Macrobid] 100 mg capsule 100 mg PO BID Qty: 14 0RF Rx Instructions: must administer with a meal/food Primary Care Provider: Allison Gomez Referrals: Allison Gomez MD [Primary Care Provider] - Print Language: Vietnamese
[2024-09-28 20:16] LABS: Hematocrit 39.5 % (37-47); Hemoglobin 12.9 g/dL (12.0-15.0); Immature Granulocytes Count 0.040 X10^3/uL (0.0-0.0); Mean Corp Hgb Conc 32.7 g/dL (32-36); Mean Corpuscular Volume 81.1 fL (81-99); Mean Platelet Vol. 10.3 fl (6.2-12.0); NRBC Flagged by Analyzer 0 % (0-5); Platelet Count 219 K/mm3 (150-450); RBC Distribution Width CV 14.7 % (11.6-14.6); RBC Distribution Width SD 42.5 fl (35.1-43.9); Red Blood Count 4.87 M/mm3 (4.2-5.4); White Blood Count 9.9 K/mm3 (4.4-11.0)
[2024-09-28 21:07] VITALS: BP 129/65; PULSE 78; RESP 12; O2SAT 98
[2024-09-28 21:08] LABS: Anion Gap 10 (5-15); BUN 37 mg/dL (4-19); BUN/Creat Ratio 21.8 RATIO (10-20); Calcium,Total 9.7 mg/dL (7.6-11.0); Carbon Dioxide 24.7 mmol/L (21.0-32.0); Chloride 101 mmol/L (98-108); Estimated Creatinine Clearance 38.12 ml/min (50-250); Glucose 115 mg/dL (70-99); Potassium 4.2 mmol/L (3.3-5.1)
[2024-09-28 22:59] VITALS: BP 112/66; PULSE 71; RESP 12; O2SAT 98
[2024-09-28 23:19] LABS: Anion Gap 9 (5-15); BUN 35 mg/dL (4-19); BUN/Creat Ratio 20.4 RATIO (10-20); Calcium,Total 9.1 mg/dL (7.6-11.0); Carbon Dioxide 24.9 mmol/L (21.0-32.0); Chloride 103 mmol/L (98-108); Estimated Creatinine Clearance 37.89 ml/min (50-250); Glucose 70 mg/dL (70-99); Potassium 4.1 mmol/L (3.3-5.1)
[2024-09-28 23:35] VITALS: BP 115/69; PULSE 79; RESP 14; TEMP 37; O2SAT 97
== END 2024-09-28 23:47 | disposition home or self-care (01) ==
PROVIDERS: Emergency Provider Surgery; PCP Internal Medicine; Visit Provider Surgery
DX: R30.0 Dysuria (principal); E11.22 Type 2 diabetes mellitus with diabetic chronic kidney disease; Z79.4 Long term (current) use of insulin; N17.9 Acute kidney failure, unspecified; Z90.710 Acquired absence of both cervix and uterus; M54.9 Dorsalgia, unspecified; I12.9 Hypertensive chronic kidney disease with stage 1 through stage 4 chronic kidney disease, or unspecified chronic kidney disease; N18.9 Chronic kidney disease, unspecified; G47.33 Obstructive sleep apnea (adult) (pediatric); Z99.81 Dependence on supplemental oxygen; E78.5 Hyperlipidemia, unspecified; K21.9 Gastro-esophageal reflux disease without esophagitis; Z79.899 Other long term (current) drug therapy; Z79.85 Long-term (current) use of injectable non-insulin antidiabetic drugs; Z90.49 Acquired absence of other specified parts of digestive tract
CPT/HCPCS: 74176; 80048; 81001; 85025; 96361; 96374; 96375; 99284; A4216

== ENCOUNTER → 2024-10-30 | Outpatient (CLI) | payer MEDICARE, SELFPAY ==
[2024-10-30 16:02] LABS: Anion Gap 11 (5-15); BUN 32 mg/dL (4-19); BUN/Creat Ratio 28.3 RATIO (10-20); Calcium,Total 9.8 mg/dL (7.6-11.0); Carbon Dioxide 23.8 mmol/L (21.0-32.0); Chloride 104 mmol/L (98-108); Glucose 187 mg/dL (70-99); Potassium 4.6 mmol/L (3.3-5.1)
== END | disposition home or self-care (01) ==
LOC: MTLAB 12:33
PROVIDERS: PCP Internal Medicine; Referring Provider Urology; Visit Provider Urology
DX: N28.9 Disorder of kidney and ureter, unspecified (principal)
CPT/HCPCS: 36415; 80048

== ENCOUNTER 2024-12-05 07:15 | Day surgery (SDC) | payer MEDICARE, SELFPAY ==
--- NOTE | 2024-12-04 10:13 | PAT.ANESEVAL ---
Pre-Assessment Diagnosis/Proposed Procedure Planned Operative Procedure(s): COLOONOSCOPY Anesthesia History Anesthesia History - site interpreter: Anesthesia History - site interpreter Hx Hospitalization No 12/04/24 09:51 Any Problems With Anesthesia Yes: PONV; DIFFICULTY WAKING 12/04/24 09:51 ; COLLAPSED LUNG Cholinesterase deficiency No 12/04/24 09:51 You/Your Family Experience No 12/04/24 09:51 fever (hyperthermia) with Relationship Recent Exposure to Contagious No 12/02/21 08:17 Disease Does patient have nerve No 12/04/24 09:51 stimulator Patient instructed to have device shut off --Does patient have Pacemaker or ICD? When Was Last Pacemaker Check QUESTION #4 FULL TEXT: You/Your Family Experience fever (hyperthermia) with Anesthesia Last Oral Intake Last Oral intake: Last Oral Intake NPO since Meds taken in AM with sips of water? Meds patient instructed to take am of surgery PONV PONV - site interpreter: PONV - site interpreter Female Yes 12/04/24 09:51 HX of Motion Sickness Yes 12/04/24 09:51 HX of N/V After Surgery Yes 12/04/24 09:51 Non-Smoker Yes 12/04/24 09:51 Duration of Surgery greater No 12/04/24 09:51 than 60 minutes Number of Risk Factors 4 12/04/24 09:51 PONV Score Severe Risk 12/04/24 09:51 Height & Weight Height & Weight: Anesthesia: Height & Weight Height 5 ft 3 in 10/30/24 11:59 Respiratory Assessment Respiratory Assessment - site interpreter: Respiratory Tract Infection Hx - site interpreter Hx Respiratory Tract Infection No 12/04/24 09:51 STOP Sleep Apnea STOP Sleep Apnea - site interpreter: STOP Sleep Apnea - site interpreter Hx Hypertension Yes: PER PT, CONTROLLED ON 12/04/24 09:51 MEDS Hx Sleep Apnea Yes 12/04/24 09:51 CPAP Yes 12/04/24 09:51 BIPAP No 12/04/24 09:51 Do you snore loudly (louder than talking or can be heard Do you often feel tired/ fatigued/ sleepy during daytime? Has anyone observed you stop breathing during sleep? STOP Results Positive 12/04/24 09:51 QUESTION #5 FULL TEXT : Do you snore loudly (louder than talking or can be heard through closed doors)? Tobacco Use History Tobacco Use History - site interpreter: Tobacco Use History - site interpreter Tobacco Use Non-smoker 08/26/20 12:47 Smoking Status Never smoker 12/04/24 09:51 Hx Tobacco Use No 12/04/24 09:51 Years Smoking Packs Smoked per Day Smoking Cessation Date was within the last 15 years Hx Smoking Cessation Date Hx Smoking Cessation Counseling Hematologic Medial History Hematologic Hx - site interpreter: Hematologic Medical Hx - manager state Hx of Blood Transfusion No 12/04/24 09:51 Hx of Transfusion in last 3 No 12/04/24 09:51 Months Date of Last Transfusion (if within last 3 months) Ever experience any problems No 12/04/24 09:51 with transfusion(s)? Specify any problems Hx of Preganancy in last 3 No 12/04/24 09:51 Months Nurse Filling Out Transfusion MGJANEEN 12/04/24 09:51 & Questions: Date: 12/04/24 12/04/24 09:51 Time: 09:54 12/04/24 09:51 Patient unable to answer at this time (ie. confused, unrespo /Reproduction History /Reproductive History - site interpreter: /Reproductive Hx- site interpreter Hx Now No 12/04/24 09:51 Gestational Age (in weeks): EDC: Hx Hx Para Hx Section SAB No 12/04/24 09:51 [facility] Medical History (Updated 12/04/24 @ 10:06 by Kylie Hall) Wears hearing aid Uses self-applied continuous glucose monitoring device Thyroid disease Insulin dependent diabetes mellitus History of renal disease Excessive bleeding Gastric reflux Vaginal atrophy Mixed incontinence Renal insufficiency History of ESBL E. coli infection Obesity Urinary urgency Wears glasses Wears dentures Arthritis Easy bruising Restless legs Dietary restriction History of diverticulitis Shortness of breath on exertion Chronic cough Leg cramps History of edema History of echocardiogram History of stress test History of colon polyps GERD (gastroesophageal reflux disease) BiPAP (biphasic positive airway pressure) dependence Pyelonephritis Non-smoker Low back pain ANISHA (obstructive sleep apnea) Asthma Diabetes Shoulder pain Hemorrhoids Kidney disease Cancer HTN (hypertension) Hyperlipidemia Home Medications ?Medication ?Instructions ?Recorded ?Last Taken ?Type multivitamin 1 tab PO DAILY #90 tabs 02/16/22 Unknown Rx potassium citrate 99 mg capsule 99 mg PO DAILY #90 caps 02/16/22 Unknown Rx lovastatin 20 mg tablet 20 mg PO QHS cholesterol #90 tabs 03/23/23 Unknown Rx omeprazole 20 mg capsule,delayed 20 mg PO DAILY GERD #90 caps 03/23/23 Unknown Rx release ascorbate calcium (vitamin C) 500 500 mg PO DAILY 09/23/23 Unknown History mg tablet blood-glucose sensor (FreeStyle #6 ea 04/10/24 Unknown Rx Mary Ann 3 Plus Sensor device) insulin aspart 20 unit subcut TID 09/28/24 Unknown History (niacinamide)(U-100) 100 unit/mL(3 mL) subcutaneous pen (Fiasp FlexTouch U-100 Insulin) insulin glargine 100 unit/mL (3 15 unit subcut DAILY 09/28/24 Unknown History mL) subcutaneous pen (Lantus Solostar U-100 Insulin) vitamin D3 125 mcg (5,000 1 cap PO DAILY 09/28/24 Unknown History unit)-vitamin K2 180 mcg capsule (K2-D3 Max) estradiol 0.01% (0.1 mg/gram) 1 g vaginal 3XW 3 months #42.5 10/30/24 Unknown Rx vaginal cream grams methenamine hippurate 1 gram tablet 1 g PO BID #180 tabs 10/30/24 Unknown Rx levothyroxine 200 mcg tablet 200 mcg PO MOTUWETHFRSA 12/04/24 Unknown History losartan 100 mg tablet 100 mg PO DAILY 12/04/24 Unknown History magnesium glycinate 100 mg (as 200 mg PO BID 12/04/24 Unknown History glycinate) tablet omega 9-ajp-fza-fish oil 1,200 mg 1 cap PO DAILY 12/04/24 Unknown History (144 mg-216 mg) capsule (Fish Oil) tirzepatide 15 mg/0.5 mL 15 mg subcut ESQUIVEL 12/04/24 11/19/24 History subcutaneous pen injector (Mounjaro) Allergy/AdvReac Type Severity Reaction Status Date / Time ciprofloxacin (From Cipro) Allergy Mild Rash Verified 12/04/24 09:42 ondansetron HCl (From Zofran Allergy Rash Verified 12/04/24 09:42 (as hydrochloride)) oxycodone HCl (From Percocet) Allergy Rash Verified 12/04/24 09:42 Penicillins (PCN) Allergy Other Verified 12/04/24 09:42 propoxyphene napsylate (From Allergy Rash Verified 12/04/24 09:42 Darvocet-N 100) nickel AdvReac Intermediate Rash Verified 12/04/24 09:42 Family History Father Colon cancer Myocardial infarction Diabetes Hypertension Hyperlipemia Grandmother No problems noted. Mother Colon cancer Cancer Heart disease CVA (cerebral vascular accident) Diabetes Thyroid disorder Hypertension Myocardial infarction Hyperlipemia Brother Colon cancer Unknown Breast cancer 2 cousins Uncle Colon cancer Surgical History (Updated 12/04/24 @ 09:51 by Kylie Hall) History of left knee replacement History of laparoscopy History of oral surgery H/O: hysterectomy History of cholecystectomy History of colonoscopy (~08/14/19) History of esophagogastroduodenoscopy (EGD) S/P colonoscopy S/P wrist surgery S/P hysterectomy Stone, kidney Status post laparoscopic cholecystectomy Social History Smoking Status: Never smoker second hand exposure: No alcohol intake: current alcohol intake frequency: holidays/special occasions only substance use type: does not use caffeine: Yes what type of physical activity do you participate in: none frequency: does not exercise Audit: Pertinent Findings Pertinent Findings EKG Perinent findings: 12/29/2022. Normal sinus rhythm 66 bpm. Cannot rule out anterior infarct, age undetermined. Stress test pertinent findings: 04/06/2022. EF 68%. Normal myocardial perfusion stress test. Recommendation Anesthesia Recommendation Anesthesia recommendation: OPTIMIZED for anesthesia
[2024-12-05] VITALS (8 sets, daily range): BP systolic 119–134; BP diastolic 56–62; PULSE 55–68; RESP 16–18; TEMP 35.8–36.4; O2SAT 96–100; BMI 46.0
--- OUTSIDE RECORDS SUMMARY | 2024-12-05 07:23 | XMS RPT_ITS | CCD ---
Author Organization [facility] Care Team Providers Care Patient Service Rep Name Role Phone Dr. Allison Gomez Primary Care Provider Dr. Allison Gomez Attending Provider [phone] Mabel Pierce Attending Provider Unavailable Ama Jurado Attending Provider Unavailable Delio Frausto Attending Provider Unavailable Dr. Allison Gomez Primary Care Provider Dr. Allison Gomez Attending Provider [phone] Mabel Pierce Attending Provider Unavailable Ama Jurado Attending Provider Unavailable Delio Frausto Attending Provider Unavailable Dr. Allison Gomez Referring Provider [phone] Dr. Todd Espino Attending Provider [phone] Dr. Todd Espino Other Provider Dwight POWER MANAGER, POWER MANAGERVeronicaC Ktahryn Attending Provider Dr. Allison Gomez Primary Care Provider Dr. Allison Gomez Referring Provider [phone] Dr. Allison Gomez Attending Provider [phone] Delio Frausto Attending Provider Unavailable RENETTA Goyal Attending Provider Dr. Allison Gomez Other Provider Dr. Jaycob Cesar Attending Provider Dr. Wilton Yanez Attending Provider [phone] Dr. Allison Gomez Primary Care Provider Dr. Allison Gomez Referring Provider JUSTIN Quintanilla NP Attending Provider Dr. Allison Gomez Attending Provider Delio Frausto Attending Provider Unavailable RENETTA Goyal Attending Provider Dr. Allison Gomez Other Provider Dr. Jaycob Cesar Attending Provider Dr. Wilton Yanez Attending Provider [phone] Allison Gomez Primary Care Provider Dr. Allison Gomez Referring Provider [phone] Dr. Todd Espino Attending Provider [phone] Allison Gomez Primary Care Provider Dr. Allison Gomez Referring Provider [phone] Allison Gomez Attending Provider [phone] Darren Calle Referring Provider Dr. Branden Jurado Attending Provider [phone] Dr. Allison Gomez Primary Care Provider Dr. Allison Gomez Referring Provider [phone] Allison Gomez Primary Care Provider Dr. Allison Gomez Referring Provider [phone] RENETTA Price Attending Provider [phone] Allison Gomez Primary Care Provider Dr. Allison Gomez Referring Provider [phone] Branden Jurado Attending Provider [phone] RENETTA Goyal Attending Provider RENETTA Goyal Attending Provider Dr. Allison Gomez Attending Provider [phone] JUSTIN Zambraon Attending Provider Dr. Allison Gomez Primary Care Provider Dr. Allison Gomez Referring Provider Dr. Branden Jurado Attending Provider RENETTA Goyal Attending Provider Dr. Allison Gomez Attending Provider Juan Manuel, POWER MANAGER-C Kandice Attending Provider Dr. Brody Atwood Attending Provider Dr. Allison Gomez Primary Care Provider Dr. Allison Gomez Referring Provider RENETTA Goyal Attending Provider Juan Manuel, POWER MANAGER-C Kandice Attending Provider RENETTA Price Attending Provider Dr. Allison Gomez MD Primary Care Provider Dr. Allison Gomez MD Referring Provider Juan Manuel POWER MANAGER-C, Kandice Attending Provider Juan Manuel POWER MANAGER-C, Kandice Referring Provider Dr. Jeffery Vieyra DO Attending Provider Dr. Jeffery Vieyra DO Emergency Provider Dr. Bentley Cody DO Attending Provider Dr. Bentley Cody DO Emergency Provider Dr. Carroll Mccormick MD Attending Provider Dr. Carroll Mccormick MD Referring Provider Dr. Allison Gomez MD Primary Care Provider Juan Manuel POWER MANAGER-C, Kandice Attending Provider Dr. Allison Gomez MD Referring Provider Heath PERAZA, Dr. Street Attending Provider [phone] Heath PERAZA, Dr. Street Referring Provider Heath PERAZA, Dr. Street Other Provider Samy COLLINS, Dr. Wheat Attending Provider Patricia COLLINS, Dr. Cooper Primary Care Provider [phone] Juan Manuel POWER MANAGER-CKandice Attending Provider Patricia COLLINS, Dr. Cooper Primary Care Provider Patricia COLLINS, Dr. Cooper Attending Provider Hector COLLINS, Dr. Obrien Emergency Provider [phone] Patricia COLLINS, Dr. Cooper Primary Care Provider Patricia COLLINS, Dr. Cooper Referring Provider Juan Manuel POWER MANAGER-CKandice Attending Provider Yaz COLLINS, Dr. Carroll Hurley Attending Provider Yaz COLLINS, Dr. Carroll Hurley Referring Provider Heath DPM, Dr. Street Attending Provider Heath DPM, Dr. Street Referring Provider Heath DPM, Dr. Street Other Provider Samy COLLINS, Dr. Wheat Attending Provider Patricia COLLINS, Dr. Cooper Attending Provider Hector COLLINS, Dr. Obrien Emergency Provider José [facility] IVEY, Dr. Otero Emergency Provider Patricia COLLINS, Dr. Cooper Primary Care Provider [phone] Yaz COLLINS, Dr. Carroll Hurley Attending Provider Yaz COLLINS, Dr. Carroll Hurley Referring Provider Jignesh COLLINS, Dr. Kang Attending Provider Patricia COLLINS, Dr. Cooper Referring Provider Hector COLLINS, Dr. Obrien Attending Provider [phone] [facility] Dr. Otero Attending Provider Jignesh COLLINS, Dr. Kang Referring Provider Mary Alice Pablo Attending Unavailable Patricia, Allison Primary Care Unavailable Jad Joe Consulting Unavailable Jad Joe Referring Unavailable Pearl Egan Attending Unavailable Patricia, Allison Primary Care Unavailable Patricia, Allison Referring Unavailable Juan ManuelKandice Attending Unavailable Patricia, Allison Referring Unavailable Patricia, Allison Primary Care Unavailable Juan ManuelKandice Attending Unavailable Patricia, Allison Primary Care Unavailable Patricia, Allison Referring Unavailable Lazaro Andres Attending Unavailable Patricia, Allison Primary Care Unavailable Patricia, Allison Referring Unavailable Patricia, Allison Primary Care Unavailable Bentley Cody Attending Unavailable Micah Young Attending Unavailable Patricia, Allison Primary Care Unavailable Branden Argueta Attending Unavailabl e Patricia, Allison Primary Care Unavailable Patricia, Allison Attending Unavailable Patricia, Allison Primary Care Unavailable Patricia, Allison Referring Unavailable Juan Manuel, Kandice Referring Unavailable WyjazzkiPearl Consulting Unavailable Patricia, Allison Primary Care Unavailable Patricia, Allison Attending Unavailable Juan ManuelKandice Attending Unavailable Patricia, Allison Referring Unavailable Patricia, Allison Primary Care Unavailable Kathryn Quintanilla NP Attending Unavailable Patricia, Allison Referring Unavailable Patricia, Allison Primary Care Unavailable Juan ManuelOvidion Attending Unavailable Juan ManuelOvidion Referring Unavailable Patricia, Allison Primary Care Unavailable Pearl Egan Attending Unavailable Wyneski, Pearl Referring Unavailable Patricia, Allison Primary Care Unavailable Juan Manuel, Kandice Referring Unavailable Patricia, Allison Primary Care Unavailable Juan ManuelKandice Attending Unavailable Patricia, Allison Primary Care Unavailable YazCarroll hadley Attending Unavailable YazCarroll Referring Unavailable Patricia, Allison Primary Care Unavailable Patricia, Allison Attending Unavailable Patricia, Allison Referring Unavailable Patricia, Allison Primary Care Unavailable Jad Joe Attending Unavailable Heath, Jad Referring Unavailable Patricia, Allison Primary Care Unavailable YazCarroll Attending Unavailable YazCarroll Referring Unavailable Patricia, Allison Primary Care Unavailable Carroll Mccormick Attending Unavailable Carroll Mccormick Referring Unavailable Lazaro Andres Attending Unavailable Patricia, Allison Primary Care Unavailable Jeffery Vieyra Attending Unavailable Patricia, Allison Primary Care Unavailable Allergies Allergy Classification Reported Allergen(s) Allergy Type Date of Onset Reaction(s) Facility (20 sources) Ciprofloxacin Drug Allergy 2 [facility] (20 sources) Ondansetron; Translations: [ondansetron HCl] Drug Allergy 2 [facility] (20 sources) oxyCODONE; Translations: [oxycodone HCl] Drug Allergy 2 [facility] (20 sources) Penicillins; Translations: [Penicillins] Allergy to substance 2 Other [facility] Comment on above: states she gets a ye ast infection (20 sources) Propoxyphene; Translations: [propoxyphene napsylate] Drug Allergy 2 [facility] (13 sources) Shellfish Allergy to substance 2 [facility] (18 sources) nickel Drug Allergy 3 [facility] (1 source) Ciprofloxacin Drug Allergy 5 [facility] Rep[facility] (1 source) nickel Drug Allergy 5 [facility] Medications Current Medications Medication Drug Class(es) Dates Sig (Normalized) Sig (Original) Blood-Glucose Sensor (Freestyle Ty 3 Plus Sensor) device (6 sources) Start: 04-10-2024 Blood-Glucose Sensor (Freestyle Ty 3 Plus Sensor) device Active 0 .Route 6 April 10, 2024 1:00am Type 2 diabetes mellitus Type 2 diabetes mellitus with hyperglycemia nursing home (current) use of insulin As directed Start: 04-10-2024 Blood-Glucose Sensor (Freestyle Ty 3 Plus Sensor) device Active 0 .Route 6 April 10, 2024 1:00am As directed calcium ascorbate 500 mg oral tablet (9 sources) Start: 09-23-2023 estradiol 0.1 mg/ml vaginal cream (4 sources) Estrogen Start: 10-30-2024 End: 10-30-2024 Fluticasone Furoate (20 sources) Corticosteroid Start: 02-18-2021 take 200 ug by inhalation once daily Fluticasone Furoate (Arnuity Ellipta) 200 mcg/actuation blister with device Active 1 INH INHALATION DAILY February 18, 2021 2:59pm Start: 10-24-2020 End: 02-18-2021 Start: 10-24-2020 End: 02-18-2021 take 200 ug by inhalation once daily Fluticasone Furoate (Arnuity Ellipta) 200 mcg/actuation blister with device Discontinued 1 NMA INHALATION DAILY October 24, 2020 12:00am February 18, 2021 2:59pm Start: 10-24-2020 End: 02-18-2021 take 200 ug by inhalation once daily Fluticasone Furoate (Arnuity Ellipta) 200 mcg/actuation blister with device Discontinued 1 INH INHALATION DAILY October 23, 2020 11:00pm February 18, 2021 1:59pm Start: 10-24-2020 End: 02-18-2021 take 200 ug by inhalation once daily Fluticasone Furoate (Arnuity Ellipta) 200 mcg/actuation blister with device Discontinued 1 INH INHALATION DAILY October 24, 2020 12:00am February 18, 2021 2:59pm Start: 04-18-2018 End: 05-25-2018 Start: 04-18-2018 End: 05-25-2018 take 200 ug by inhalation once daily Fluticasone Furoate (Arnuity Ellipta) 200 mcg/actuation blister with device Discontinued 1 NMA INHALATION daily 11 09April 18, 2018 1:00am May 25, 2018 1:42pm administer at approximately the same time(s) each day Start: 04-18-2018 End: 05-25-2018 take 200 ug by inhalation once daily Fluticasone Furoate (Arnuity Ellipta) 200 mcg/actuation blister with device Discontinued 1 NMA INHALATION daily April 18, 2018 1:00am May 25, 2018 1:42pm administer at approximately the same time(s) each day Start: 04-18-2018 End: 05-25-2018 take 200 ug by inhalation once daily Fluticasone Furoate (Arnuity Ellipta) 200 mcg/actuation blister with device Discontinued 1 inh INHALATION daily April 18, 2018 12:00am May 25, 2018 12:42pm administer at approximately the same time(s) each day Start: 04-18-2018 End: 05-25-2018 take 200 ug by inhalation once daily Fluticasone Furoate (Arnuity Ellipta) 200 mcg/actuation blister with device Discontinued 1 inh INHALATION daily April 18, 2018 1:00am May 25, 2018 1:42pm administer at approximately the same time(s) each day magnesium gluconate 250 mg oral tablet (11 sources) Start: 06-03-2022 take 250 mg by mouth once daily Magnesium Gluconate Active 250 MG PO DAILY June 03, 2022 12:00am Magnesium Gluconate 12.5 mg magne- sium (250 mg) Tablet (6 sources) Start: 06-03-2022 take 1 tablet by mouth once daily Magnesium Gluconate 12.5 mg magne- sium (250 mg) Tablet Active 250 mg PO DAILY June 03, 2022 12:00am methenamine hippurate 1000 mg oral tablet (4 sources) Start: 10-30-2024 End: 10-30-2024 Multivitamin preparation (20 sources) Start: 02-16-2022 take 1 tablet by mouth once daily Multivitamin Active 1 TABLET PO DAILY February 16, 2022 5:26pm Start: 02-16-2022 take 1 tablet by akira th once daily Multivitamin Active 1 TABLET PO DAILY February 16, 2022 4:26pm Start: 10-22-2021 End: 02-16-2022 take 1 tablet by mouth once daily Multivitamin Discontinued 1 TABLET PO DAILY October 22, 2021 12:00am February 16, 2022 5:27pm Start: 10-22-2021 End: 02-16-2022 take 1 tablet by mouth once daily Multivitamin Discontinued 1 TABLET PO DAILY October 21, 2021 11:00pm February 16, 2022 4:27pm Start: 10-22-2021 take 1 tablet by akira th once daily Multivitamin Active 1 TABLET PO DAILY October 21, 2021 11:00pm Start: 10-22-2021 take 1 tablet by akira th once daily Multivitamin Active 1 TABLET PO DAILY October 22, 2021 12:00am Multivitamin tablet (12 sources) Start: 02-16-2022 Multivitamin t ablet Active 1 {tbl} PO DAILY February 16, 2022 5:26pm Start: 02-16-2022 Multivitamin t ablet Active 1 {tbl} PO DAILY February 16, 2022 5:26pm Start: 10-22-2021 End: 02-16-2022 Multivitamin tablet Disconti nued 1 {tbl} PO DAILY October 22, 2021 12:00am February 16, 2022 5:27pm potassium citrate 99 mg oral tablet (20 sources) Start: 10-22-2021 End: 02-16-2022 take 1 capsule by mouth once daily Potassium Citrate 99 mg capsule Active 99 mg PO DAILY 90 February 16, 2022 5:26pm Start: 10-22-2021 Potassium Citr ate Active MG PO October 22, 2021 12:00am Tirzepatide (Mounjaro) 15 mg /0.5 mL pen injector (11 sources) Start: 07-24-2024 Tirzepatide (M ounjaro) 15 mg/0.5 mL pen injector Active 15 mg SC EVERY WEEK 6 July 24, 2024 8:05am Start: 07-24-2024 Tirzepatide (M ounjaro) 15 mg/0.5 mL pen injector Active 15 mg SC EVERY WEEK July 24, 2024 8:05am Start: 02-07-2024 End: 07-24-2024 Tirzepatide (Mounjaro) 15 mg /0.5 mL pen injector Discontinued 15 mg SC EVERY WEEK 6 February 07, 2024 1:00am July 24, 2024 8:05am Start: 02-07-2024 End: 07-24-2024 Tirzepatide (Mounjaro) 15 mg /0.5 mL pen injector Discontinued 15 mg SC EVERY WEEK February 07, 2024 1:00am July 24, 2024 8:05am Start: 02-07-2024 Tirzepatide (M ounjaro) 15 mg/0.5 mL pen injector Active 15 mg SC EVERY WEEK February 07, 2024 1:00am vitamin B12 (17 sources) Vitamin B12 Start: 06-03-2022 Cyanocobalamin (Vitamin B-12) Tablet,Chewable Active 1 {tbl} PO DAILY June 03, 2022 12:00am Start: 06-03-2022 take 1 tablet by akira once daily Cyanocobalamin (Vitamin B-12) Active 1 TABLET PO DAILY June 02, 2022 11:00pm Start: 06-03-2022 take 1 tablet by akira th once daily Cyanocobalamin (Vitamin B-12) Active 1 TABLET PO DAILY June 03, 2022 12:00am (20 sources) Start: 09-28-2024 Start: 07-24-2024 Start: 04-10-2024 End: 04-10-2024 Start: 04-10-2024 Start: 02-07-2024 End: 03-23-2024 Start: 02-07-2024 End: 07-24-2024 Start: 01-17-2024 End: 02-07-2024 Start: 10-28-2023 End: 04-10-2024 Start: 09-23-2023 End: 01-17-2024 Start: 07-12-2023 End: 09-23-2023 Start: 05-06-2023 End: 10-28-2023 Start: 05-06-2023 End: 07-12-2023 Start: 03-18-2023 End: 05-06-2023 Start: 11-19-2022 End: 11-26-2022 Start: 11-09-2022 End: 03-18-2023 Start: 06-24-2022 End: 11-19-2022 Start: 06-22-2022 End: 11-09-2022 Start: 06-03-2022 Start: 02-16-2022 End: 06-22-2022 Start: 02-16-2022 Start: 02-16-2022 Start: 02-16-2022 End: 06-24-2022 Start: 12-01-2021 End: 02-16-2022 Start: 10-22-2021 End: 02-16-2022 Start: 06-05-2021 End: 02-16-2022 Start: 12-25-2019 End: 10-24-2020 Start: 08-25-2014 End: 10-11-2017 Completed/Discontinued Medications Medication Drug Class(es) Dates Sig (Normalized) Sig (Original) acetaminophen 325 mg / HYDROcodone bitartrate 5 mg oral tablet (20 sources) Opioid Agonist Start: 12-10-2022 End: 05-06-2023 Start: 12-10-2022 End: 05-06-2023 Hydrocodone-Acetaminophen 5- 325 mg tablet Discontinued 1 {tbl} PO EVERY 6 HOURS NEEDED as needed for Pain 10 3 0 December 10, 2022 May 06, 2023 11:16am Acute right flank pain Unspecified abdominal pain Start: 12-10-2022 End: 05-06-2023 take 1 tablet by mouth every six hours as needed Hydrocodone-Acetaminophen Discontinued 1 TABLET PO EVERY 6 HOURS NEEDED 10 3 December 10, 2022 May 06, 2023 11:16am Start: 09-10-2020 End: 10-24-2020 Start: 09-10-2020 End: 10-24-2020 Hydrocodone-Acetaminophen 1 TABLET tablet Discontinued 1 {tbl} PO EVERY 6 HOURS NEEDED as needed for Pain 10 3 0 September 10, 2020 October 24, 2020 8:18am Right flank pain Acute flank pain Unspecified abdominal pain Start: 09-10-2020 End: 10-24-2020 take 1 tablet by mouth every six hours as needed Hydrocodone-Acetaminophen Discontinued 1 TABLET PO EVERY 6 HOURS NEEDED 10 3 September 10, 2020 October 24, 2020 8:18am Start: 09-10-2019 End: 09-13-2019 Start: 09-10-2019 End: 09-13-2019 Hydrocodone-Acetaminophen 1 TABLET tablet Discontinued 1 {tbl} PO EVERY 6 HOURS NEEDED as needed for Pain 10 3 0 September 10, 2019 September 12, 2019 12:00am September 13, 2019 12:02am Flank pain Unspecified abdominal pain Start: 09-10-2019 End: 09-13-2019 take 1 tablet by mouth every six hours as needed Hydrocodone-Acetaminophen Discontinued 1 TABLET PO EVERY 6 HOURS NEEDED 10 3 September 10, 2019 September 13, 2019 12:02am acetaminophen 325 mg / oxyCO DONE hydrochloride 5 mg oral tablet (20 sources) Opioid Agonist Start: 06-03-2022 End: 11-26-2022 Start: 06-03-2022 End: 11-26-2022 Oxycodone-Acetaminophen 5-32 5 mg Tablet Discontinued 1 {tbl} PO TWICE A DAY as needed for Pain June 03, 2022 12:00am November 26, 2022 10:09am Start: 06-03-2022 End: 11-26-2022 take 1 tablet by mouth twice daily Oxycodone-Acetaminophen Discontinued 1 TABLET PO TWICE A DAY June 03, 2022 12:00am November 26, 2022 10:09am amitriptyline hydrochloride 25 mg oral tablet (20 sources) Tricyclic Antidepressant Start: 10-11-2017 End: 08-10-2019 Start: 10-11-2017 End: 08-10-2019 take 1 tablet by mouth at bedtime Amitriptyline 25 mg tablet Discontinued 25 mg PO AT BEDTIME 30 30 0 October 11, 2017 12:00am August 10, 2019 1:15pm SLEEP aspirin 81 mg delayed release oral tablet (20 sources) Platelet Aggregation Inhibitor, Nonsteroidal Anti-inflammatory Drug Start: 06-03-2022 End: 06-07-2023 Start: 05-26-2018 End: 08-10-2019 Start: 05-26-2018 End: 08-10-2019 take 1 tablet by mouth once daily Aspirin 81 MG tablet Discontinued 81 mg PO DAILY@0800 0 May 26, 2018 12:00am August 10, 2019 1:15pm azithromycin 250 mg oral tab let (20 sources) Macrolide Antimicrobial Start: 03-02-2022 End: 05-04-2022 breath-actuated 120 actuat beclomethasone dipropionate 0.08 mg/actuat metered dose inhaler (20 sources) Corticosteroid Start: 04-08-2018 End: 04-18-2018 Start: 04-08-2018 End: 04-18-2018 Beclomethasone Dipropionate 1 PUFF inhaler Discontinued 2 NMA INHALATION TWICE A DAY April 08, 2018 1:00am April 18, 2018 12:16pm Start: 04-08-2018 End: 04-18-2018 take 1 puff(s) by inhalation twice daily Beclomethasone Dipropionate Discontinued 2 PUFF INHALATION TWICE A DAY April 08, 2018 1:00am April 18, 2018 12:16pm Start: 02-22-2018 End: 02-22-2018 Start: 02-22-2018 End: 02-22-2018 take 40 ug by inhalation twice daily Beclomethasone Dipropionate (Qvar Redihaler) 40 mcg/actuation HFA aerosol breath activated Discontinued 2 NMA INHALATION TWICE A DAY February 22, 2018 1:00am February 22, 2018 10:51am Start: 02-22-2018 End: 02-22-2018 take 1 puff(s) by inhalation twice daily beclomethasone diprop 40 mcg/actuation HFA breath activated aerosol Discontinued 2 PUFF INHALATION TWICE A DAY February 22, 2018 1:00am February 22, 2018 10:51am Start: 02-10-2016 End: 10-11-2017 Start: 02-10-2016 End: 10-11-2017 Beclomethasone Dipropionate 1 PUFF inhaler Discontinued 2 NMA INHALATION TWICE A DAY February 10, 2016 1:00am October 11, 2017 3:09pm Start: 02-10-2016 End: 10-11-2017 take 1 puff(s) by inhalation twice daily Beclomethasone Dipropionate Discontinued 2 PUFF INHALATION TWICE A DAY February 10, 2016 12:00am October 11, 2017 2:09pm Start: 02-10-2016 End: 10-11-2017 take 1 puff(s) by inhalation twice daily Beclomethasone Dipropionate Discontinued 2 PUFF INHALATION TWICE A DAY February 10, 2016 1:00am October 11, 2017 3:09pm Blood-Glucose Sensor (Dexcom G7 Sensor) device (20 sources) Start: 11-19-2022 End: 11-26-2022 Blood-Glucose Sensor (Dexcom G7 Sensor) device Discontinued 0 .Route 3 November 19, 2022 9:02am November 26, 2022 10:09am As directed Start: 11-19-2022 End: 11-26-2022 Blood-Glucose Sensor (Dexcom G7 Sensor) device Discontinued 0 .Route 3 November 19, 2022 8:02am November 26, 2022 9:09am As directed Start: 11-19-2022 End: 11-26-2022 Blood-Glucose Sensor (Dexcom G7 Sensor) device Discontinued 0 .Route 3 November 19, 2022 9:02am November 26, 2022 10:09am As directed Start: 06-24-2022 End: 11-19-2022 Blood-Glucose Sensor (Dexcom G7 Sensor) device Discontinued 0 .Route 3 June 24, 2022 12:00am November 19, 2022 9:03am As directed Start: 06-24-2022 End: 11-19-2022 Blood-Glucose Sensor (Dexcom G7 Sensor) device Discontinued 0 .Route 3 June 23, 2022 11:00pm November 19, 2022 8:03am As directed Start: 06-24-2022 End: 11-19-2022 Blood-Glucose Sensor (Dexcom G7 Sensor) device Discontinued 0 .Route 3 June 24, 2022 12:00am November 19, 2022 9:03am As directed Start: 06-24-2022 Blood-Glucose Sensor (Dexcom G7 Sensor) device Active 0 .Route 3 June 24, 2022 12:00am As directed 24 hr buPROPion hydrochlorid e 300 mg extended release oral tablet (20 sources) Aminoketone Start: 11-12-2019 End: 12-25-2019 cefdinir 300 mg oral capsule (20 sources) Cephalosporin Antibacterial Start: 11-14-2019 End: 11-27-2019 celecoxib 200 mg oral capsul e (13 sources) Nonsteroidal Anti-inflammatory Drug Start: 12-24-2022 End: 05-06-2023 cephalexin 500 mg oral capsu le (20 sources) Cephalosporin Antibacterial Start: 12-31-2020 End: 01-29-2021 Start: 12-13-2016 End: 10-11-2017 Start: 12-13-2016 End: 10-11-2017 take 1 capsule by mouth four times daily Cephalexin 500 MG capsule Discontinued 500 mg PO 4 TIMES DAILY 40 0 December 13, 2016 12:00am October 11, 2017 3:09pm ciprofloxacin 250 mg oral ta blet (20 sources) Quinolone Antimicrobial Start: 06-03-2023 End: 06-04-2023 Start: 01-27-2021 End: 01-29-2021 Start: 08-26-2020 End: 10-24-2020 Start: 04-12-2019 End: 08-10-2019 Start: 09-26-2017 End: 10-11-2017 clindamycin 150 mg oral caps ule (17 sources) Lincosamide Antibacterial Start: 08-09-2022 End: 11-26-2022 Start: 08-09-2022 End: 11-26-2022 take 450 mg by mouth three times daily Clindamycin Hcl Discontinued 450 MG PO THREE TIMES A DAY 63 7 August 09, 2022 12:00am November 26, 2022 10:08am Compress.Stocking,Knee,Reg,L rg (18 sources) Start: 12-25-2019 End: 10-24-2020 Compress.Stocking,Knee,Reg,L rg Discontinued 0 .ROUTE .MEDSUPPLY 2 December 24, 2019 11:00pm October 24, 2020 7:17am wear daily for venous insufficiency 20-30 mmHg Start: 12-25-2019 End: 10-24-2020 Compress.Stocking,Knee,Reg,L rg Discontinued 0 .ROUTE .MEDSUPPLY 2 December 25, 2019 12:00am October 24, 2020 8:17am wear daily for venous insufficiency 20-30 mmHg Compress.Stocking,Knee,Reg,L rg misc (6 sources) Start: 12-25-2019 End: 10-24-2020 Compress.Stocking,Knee,Reg,L rg misc Discontinued 0 .ROUTE .MEDSUPPLY 2 December 25, 2019 12:00am October 24, 2020 8:17am Venous insufficiency (chronic) (peripheral) wear daily for venous insufficiency 20-30 mmHg Start: 12-25-2019 End: 10-24-2020 Compress.Stocking,Knee,Reg,L rg misc Discontinued 0 .ROUTE .MEDSUPPLY 2 December 25, 2019 12:00am October 24, 2020 8:17am wear daily for venous insufficiency 20-30 mmHg cyclobenzaprine hydrochlorid e 5 mg oral tablet (16 sources) Muscle Relaxant Start: 09-28-2024 End: 10-30-2024 Start: 12-24-2022 End: 06-07-2023 dapagliflozin 10 mg oral tab let (18 sources) Sodium-Glucose Cotransporter 2 Inhibitor Start: 06-24-2022 End: 11-26-2022 diazePAM 2 mg oral tablet (20 sources) Benzodiazepine Start: 02-11-2016 End: 10-11-2017 docusate sodium 100 mg oral capsule (20 sources) Start: 06-03-2022 End: 11-26-2022 doxycycline hyclate 100 mg o ral tablet (20 sources) Tetracycline-class Drug Start: 05-10-2023 End: 06-03-2023 Start: 11-10-2019 End: 11-14-2019 Dulaglutide (20 sources) GLP-1 Receptor Agonist Start: 11-26-2022 End: 05-06-2023 Start: 11-26-2022 End: 05-06-2023 Dulaglutide (Trulicity) 4.5 mg/0.5 mL pen injector Discontinued 4.5 mg SC EVERY WEEK 2 6 November 26, 2022 12:00am May 06, 2023 4:56pm Start: 11-26-2022 End: 05-06-2023 Dulaglutide (Trulicity) 4.5 mg/0.5 mL pen injector Discontinued 4.5 mg SC EVERY WEEK 2 November 26, 2022 12:00am May 06, 2023 4:56pm Start: 11-26-2022 End: 05-06-2023 Dulaglutide (Trulicity) 4.5 mg/0.5 mL pen injector Discontinued 4.5 MG SC EVERY WEEK 2 November 26, 2022 12:00am May 06, 2023 4:56pm Start: 11-26-2022 Dulaglutide (T rulicity) 4.5 mg/0.5 mL pen injector Active 4.5 MG SC EVERY WEEK 2 November 25, 2022 11:00pm Start: 11-26-2022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, unspecified eye] Onset: 5 08-28-2022 Chronic Comment on above: mild in right eyeexa m 08/24/22 Diabetes mellitus without complication (20 sources) Diabetes mellitus; Translations: [Type 2 diabetes mellitus without complications] Onset: 5 Chronic Disorders of lipid metabolism (20 sources) Dyslipidemia; Translations: [Hyperlipidemia, unspecified] Chronic Esophageal disorders (9 sources) Gastroesophageal reflux disease; Translations: [Gastro-esophageal reflux disease without esophagitis] 05-15-2024 Chronic Essential hypertension (20 sources) Benign essential hypertension; Translations: [Essential (primary) hypertension] Onset: 5 Chronic Genitourinary symptoms and ill-defined conditions (2 sources) Incontinence; Translations: [Mixed incontinence] 10-30-2024 Chronic Genitourinary symptoms and ill-defined conditions (20 sources) Urgent desire to urinate; Translations: [Urgency of urination] Onset: 5 06-24-2022 Episodic Headache; including migraine (20 sources) Headache; Translations: [Headache] 10-23-2021 Episodic Hemorrhoids (20 sources) Hemorrhoids; Translations: [Unspecified hemorrhoids] 11-12-2019 Episodic Malignant neoplasm without specification of site (20 sources) Malignant neoplastic disease; Translations: [Malignant (primary) neoplasm, unspecified] 11-12-2019 Chronic Comment on above: Uterine Menopausal disorders (2 sources) Atrophy of vagina; Translations: [Postmenopausal atrophic vaginitis] 10-30-2024 Chronic Mycoses (20 sources) Candidiasis of vagina; Translations: [Candidiasis of vulva and vagina] 11-09-2019 Episodic Nausea and vomiting (10 sources) Nausea; Translations: [Nausea] 06-07-2023 Episodic Nonspecific chest pain (20 sources) Tight chest; Translations: [Other chest pain] 02-11-2022 Episodic Nutritional deficiencies (20 sources) Vitamin D deficiency; Translations: [Vitamin D deficiency, unspecified] Onset: 05-06-2023 Chronic Open wounds of extremities (20 sources) Dog bite of foot; Translations: [Open bite, left foot, initial encounter] 08-09-2022 Episodic Other and unspecified benign neoplasm (20 sources) History of polyp of colon; Translations: [Personal history of colonic polyps] 12-02-2021 Episodic Other and unspecified benign neoplasm (1 source) Personal history of colonic polyps; Translations: [Personal history of colonic polyps] Episodic Other circulatory disease (20 sources) H/O: hypertension; Translations: [Personal history of other diseases of the circulatory system] 10-23-2021 Episodic Other connective tissue disease (20 sources) Swelling of left lower limb; Translations: [Other specified soft tissue disorders] 11-14-2019 Episodic Other connective tissue disease (13 sources) Muscle pain; Translations: [Myalgia, unspecified site] 12-24-2022 Episodic Other connective tissue disease (2 sources) Myalgia, unspecified site; Translations: [Myalgia and myositis, unspecified] 12-24-2022 Episodic Other diseases of kidney and ureters (20 sources) Kidney disease; Translations: [Disorder of kidney and ureter, unspecified] 11-12-2019 Episodic Other diseases of kidney and ureters (3 sources) Acute renal insufficiency; Translations: [Disorder of kidney and ureter, unspecified] 09-28-2024 Episodic Other diseases of kidney and ureters (3 sources) Renal impairment; Translations: [Disorder of kidney and ureter, unspecified] 10-30-2024 Episodic Other diseases of kidney and ureters (1 source) Disorder of kidney and ureter, unspecified; Translations: [Disorder of kidney and ureter, unspecified] Onset: Episodic Other gastrointestinal disorders (20 sources) Diarrhea; Translations: [Diarrhea, unspecified] 11-12-2019 Episodic Other nervous system disorders (20 sources) Other acute postprocedural pain; Translations: [Acute postoperative pain of left knee] 06-03-2022 Episodic Other non-traumatic joint disorders (20 sources) Shoulder pain; Translations: [Pain in unspecified shoulder] 11-12-2019 Episodic Other nutritional; endocrine; and metabolic disorders (20 sources) Morbid obesity; Translations: [Morbid (severe) obesity due to excess calories] 05-25-2018 Chronic Other nutritional; endocrine; and metabolic disorders (20 sources) Body mass index 40+ - severely obese; Translations: [Body mass index (BMI) 45.0-49.9, adult] 12-04-2019 Chronic Other nutritional; endocrine; and metabolic disorders (19 sources) Morbid (severe) obesity due to excess calories; Translations: [Morbid obesity] Chronic Other nutritional; endocrine; and metabolic disorders (18 sources) Body mass index (BMI) 45.0-49.9, adult; Translations: [Body Mass Index 45.0-49.9, adult] Chronic Other nutritional; endocrine; and metabolic disorders (18 sources) Obesity; Translations: [Obesity, unspecified] 06-25-2022 Chronic Other nutritional; endocrine; and metabolic disorders (9 sources) Obesity, unspecified; Translations: [Obesity, unspecified] 06-24-2022 Chronic Other nutritional; endocrine; and metabolic disorders (20 sources) H/O: diabetes mellitus; Translations: [Personal history of other endocrine, nutritional and metabolic disease] 10-23-2021 Episodic Other screening for suspected conditions (not mental disorders or infectious disease) (20 sources) Lung function restrictive; Translations: [Abnormal results of pulmonary function studies] Onset: 5 10-22-2021 Episodic Pleurisy; pneumothorax; pulmonary collapse (13 sources) Pleurisy; Translations: [Pleurisy] 12-29-2022 Episodic Residual codes; unclassified (20 sources) Obstructive sleep apnea syndrome; Translations: [Obstructive sleep apnea (adult) (pediatric)] 10-24-2020 Chronic Comment on above: BiPAP 18/[address] Residual codes; unclassified (13 sources) Obstructive sleep apnea (adult) (pediatric); Translations: [Obstructive sleep apnea (adult)(pediatric)] Chronic Residual codes; unclassified (20 sources) Dependence on biphasic positive airway pressure ventilation; Translations: [Dependence on other enabling machines and devices] 05-04-2022 Chronic Residual codes; unclassified (7 sources) Dependence on other enabling machines and devices; Translations: [Dependence on other enabling machines] 05-04-2022 Chronic Residual codes; unclassified (20 sources) Edema of left lower limb; Translations: [Localized edema] 11-09-2019 Episodic Residual codes; unclassified (20 sources) Bilateral lower limb edema; Translations: [Localized edema] 12-25-2019 Episodic Residual codes; unclassified (20 sources) Past history of procedure; Translations: [Other specified postprocedural states] 11-12-2019 Episodic Comment on above: 04/11/18 Residual codes; unclassified (20 sources) History of colonoscopy; Translations: [Other specified postprocedural states] 12-25-2019 Episodic Comment on above: 2019 Residual codes; unclassified (20 sources) Family history of cancer of colon; Translations: [Family history of malignant neoplasm of digestive organs] 12-02-2021 Episodic Residual codes; unclassified (1 source) Family history of malignant neoplasm of digestive organs; Translations: [Family history of malignant neoplasm of gastrointestinal tract] Episodic Skin and subcutaneous tissue infections (20 sources) Cellulitis of lower limb; Translations: [Cellulitis of left lower limb] 11-14-2019 Episodic Spondylosis; intervertebral disc disorders; other back problems (20 sources) Thoracic back pain; Translations: [Dorsalgia, unspecified] 05-25-2018 Episodic Thyroid disorders (20 sources) Hyperthyroidism; Translations: [Thyrotoxicosis, unspecified without thyrotoxic crisis or storm] Onset: 5 12-25-2019 Chronic Thyroid disorders (4 sources) Disorder of thyroid gland; Translations: [Disorder of thyroid, unspecified] Episodic Unclassified (20 sources) Contusion of left shoulder, initial encounter 11-12-2019 Urinary tract infections (20 sources) Urinary tract infectious disease; Translations: [Urinary tract infection, site not specified] Onset: Episodic Past or Other Problems Problem Classification Problem Date Documented Da te Episodic/Chronic Abdominal pain (20 sources) Flank pain; Translations: [Unspecified abdominal pain] Onset: 05-18-2024 Episodic Other aftercare (1 source) nursing home (current) use of insulin; Translations: [[employer] 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 of insulin] Onset: 06-22-2024 Episodic Other nervous system disorders (2 sources) Paresthesia of skin; Translations: [Paresthesia of skin] Onset: 08-22-2024 Episodic Superficial injury; contusion (19 sources) Abrasion, right ankle, initial encounter; Translations: [Abrasion of right ankle] Onset: 05-04-2024 04-25-2024 Episodic Results Test Name Value Interpretation Reference Range Facility MR/PATPetros 12-04-2024 [facility] Department [address] [place] [address] PAT - Anesthesia 12/04/24 1013 MR#: [id number] Acct: [id number] Name: NIMO MCCLOUD Rep #: [id number] : 1950 73 From: Lul Gonzales MD PCP: Dr. Allison Gomez MD Status:PRE [facility] Y Race: C Location: [place] Pre-Assessment Diagnosis/Proposed Procedure Planned Operative Procedure(s): COLOONOSCOPY Anesthesia History Anesthesia History - landscape foreman: Anesthesia History - landscape foreman Hx Hospitalization No 12/04/24 09:51 Any Problems With Anesthesia Yes: PONV; DIFFICULTY WAKING 12/04/24 09:51 ; COLLAPSED LUNG Cholinesterase deficiency No 12/04/24 09:51 You/Your Family Experience No 12/04/24 09:51 fever (hyperthermia) with Relationship Recent Exposure to Contagious No 12/02/21 08:17 Disease Does patient have nerve No 12/04/24 09:51 stimulator Patient instructed to have device shut off --Does patient have Pacemaker or ICD? When Was Last Pacemaker Check QUESTION #4 FULL TEXT: You/Your Family Experience fever (hyperthermia) with Anesthesia Last Oral Intake Last Oral intake: Last Oral Intake NPO since Meds taken in AM with sips of water? Meds patient instructed to take am of surgery PONV PONV - landscape foreman: PONV - landscape foreman Female Yes 12/04/24 09:51 HX of Motion Sickness Yes 12/04/24 09:51 HX of N/V After Surgery Yes 12/04/24 09:51 Non-Smoker Yes 12/04/24 09:51 Duration of Surgery greater No 12/04/24 09:51 than 60 minutes Number of Risk Factors 4 12/04/24 09:51 PONV Score Severe Risk 12/04/24 09:51 Height Weight Height Weight: Anesthesia: Height Weight Height 5 ft 3 in 10/30/24 11:59 Respiratory Assessment Respiratory Assessment - landscape foreman: Respiratory Tract Infection Hx - landscape foreman Hx Respiratory Tract Infection No 12/04/24 09:51 STOP Sleep Apnea STOP Sleep Apnea - landscape foreman: STOP Sleep Apnea - landscape foreman Hx Hypertension Yes: PER PT, CONTROLLED ON 12/04/24 09:51 MEDS Hx Sleep Apnea Yes 12/04/24 09:51 CPAP Yes 12/04/24 09:51 BIPAP No 12/04/24 09:51 Do you snore loudly (louder than talking or can be heard Do you often feel tired/ fatigued/ sleepy during daytime? Has anyone observed you stop breathing during sleep? STOP Results Positive 12/04/24 09:51 QUESTION #5 FULL TEXT : Do you snore loudly (louder than talking or can be heard through closed doors)? 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 Specify any problems Hx of Preganancy in last 3 No 12/04/24 09:51 Months Nurse Filling Out Transfusion PAUL 12/04/24 09:51 Questions: Date: 12/04/24 12/04/24 09:51 Time: 09:54 12/04/24 09:51 Patient unable to answer at this time (ie. confused, unrespo /Reproduction History /Reproductive History - landscape foreman: /Reproductive Hx- landscape foreman Hx Now No 12/04/24 09:51 Gestational Age (in weeks): EDC: Hx Hx Para Hx Section SAB No 12/04/24 09:51 [facility] Medical History (Updated 12/04/24 @ 10:06 by Kylie Hall) Wears hearing aid Uses self-applied continuous glucose monitoring device Thyroid disease Insulin dependent diabetes mellitus History of renal disease Excessive bleeding Gastric reflux Vaginal atrophy Mixed incontinence Renal insufficiency History of ESBL E. coli infection Obesity Urinary urgency Wears glasses Wears dentures Arthritis Easy bruising Restless legs Dietary restriction History of diverticulitis Shortness of breath on exertion Chronic cough Leg cramps History of edema History of echocardiogram History of stress test History of colon polyps GERD (gastroesophageal reflux disease) BiPAP (biphasic positive airway pressure) dependence Pyelonephritis Non-smoker Low back pain ANISHA (obstructive sleep apnea) Asthma Diabetes Shoulder pain Hemorrhoids Kidney disease Cancer HTN (more content not included)... Normal [facility] Anion gap in Serum or Plasma Ordered By: Pearl Egan on 10-30-2024 Anion gap [Moles/Vol] 11 mmol/L - [facility] BUN/creatinine ratioOrdered By: Pearl Egan on 10-30-2024 Urea nitrogen/Creatinine [Mass ratio] 28.3 mg/mg High [facility] Basic Metabolic Profile (BMP )on 10-30-2024 BUN/CRE 28.3 RATIO High [facility] Comment on above: Performed By: #### L 500.4100, L506.0400, L500.4050, L506.1000, L502.0250, L501.9520 #### [facility] [address] [place], [address] Calcium [Mass/Vol] 9.8 mg/dL Normal 7.6-11.0 [facility] Comment on above: Performed By: #### L 500.4100, L506.0400, L500.4050, L506.1000, L502.0250, L501.9520 #### [facility] [address] [place], [address] Chloride [Moles/Vol] 104 mmol/L Normal 98-108 [facility] Comment on above: Performed By: #### L 500.4100, L506.0400, L500.4050, L506.1000, L502.0250, L501.9520 #### [facility] [address] [place], [address] CO2 [Moles/Vol] 23.8 mmol/L Normal 21.0-32.0 [facility] Comment on above: Performed By: #### L 500.4100, L506.0400, L500.4050, L506.1000, L502.0250, L501.9520 #### [facility] [address] [place], [address] Creatinine [Mass/Vol] 1.13 mg/dL Normal 0.70-1.20 [facility] Comment on above: Performed By: #### L 500.4100, L506.0400, L500.4050, L506.1000, L502.0250, L501.9520 #### [facility] [address] [place], [address] GAP 11 Normal 5-15 [facility] Comment on above: Performed By: #### L 500.4100, L506.0400, L500.4050, L506.1000, L502.0250, L501.9520 #### [facility] [address] [place], [address] GFR/1.73 sq M.predicted among non-blacks MDRD (S/P/Bld) [Vol rate/Area] 52 mL/min/{1.73_m2} Low >60 [facility] Comment on above: Result Comment: mL/m in/1.73m2 CKD-EPI Creatinine Equation (2020) Performed By: #### L 500.4100, L506.0400, L500.4050, L506.1000, L502.0250, L501.9520 #### [facility] [address] [place], [address] Glucose [Mass/Vol] 187 mg/dL High 70-99 [facility] Comment on above: Performed By: #### L 500.4100, L506.0400, L500.4050, L506.1000, L502.0250, L501.9520 #### [facility] [address] [place], [address] Potassium [Moles/Vol] 4.6 mmol/L Normal 3.3-5.1 [facility] Comment on above: Performed By: #### L 500.4100, L506.0400, L500.4050, L506.1000, L502.0250, L501.9520 #### [facility] [address] [place], [address] Sodium [Moles/Vol] 139 mmol/L Normal 133-145 [facility] Comment on above: Performed By: #### L 500.4100, L506.0400, L500.4050, L506.1000, L502.0250, L501.9520 #### [facility] [address] [place], [address] Urea nitrogen [Mass/Vol] 32 mg/dL High 4-19 [facility] Comment on above: Performed By: #### L 500.4100, L506.0400, L500.4050, L506.1000, L502.0250, L501.9520 #### [facility] [address] [place], [address] Carbon dioxide, total [Moles /volume] in Central venous bloodOrdered By: Pearl Egan on 10-30-2024 CO2 [Moles/Vol] 23.8 mmol/L 21.0-32.0 [facility] Chloride assayOrdered By: Rj Egan on 10-30-2024 Chloride [Moles/Vol] 104 mmol/L 98-108 [facility] Glomerular filtration rate ( GFR) estimation/1.73 sq m using serum, plasma, or whole bOrdered By: Pearl Egan on 10-30-2024 GFR/1.73 sq M.predicted among non-blacks MDRD (S/P/Bld) [Vol rate/Area] 52 mL/min/{1.73_m2} Low >60 [facility] MR/Kaushal 10-30-2024 MR/[facility] [address], [address] [place] [address] OFFICE VISIT Date of Service: 10/30/24 MR#: [id number] Acct: [id number] Name: NIMO MCCLOUD Rep #: [id number] : 1950 Provider: Dr. Pearl Alexander i, MD Age/Sex: 73/F [place] [facility] Status: Signed Intake Vital Signs 09/28/24 19:07 10/30/24 11:59 Height 5 ft 3 in 5 ft 3 in Weight: 252 lb BMI 44.6 BP 130/89 H Pulse 72 Intake Visit Reasons: UTI's Seen in ER Chief Complaint: [facility] ER Follow up for UTIs [employer] Required: No Accompanied by: Self Is patient in pain?: Yes (kidney pain ) Pain scale (1-10): 8 Allergies ciprofloxacin (From Cipro) Allergy (Mild, Verified 10/30/24 11:57) Rash ondansetron HCl (From Zofran (as hydrochloride)) Allergy (Verified 10/30/24 11:57) Rash oxycodone HCl (From Percocet) Allergy (Verified 10/30/24 11:57) Rash Penicillins (PCN) Allergy (Verified 10/30/24 11:57) Other propoxyphene napsylate (From Darvocet-N 100) Allergy (Verified 10/30/24 11:57) Rash nickel Adverse Reaction (Intermediate, Verified 10/30/24 11:57) Rash Medications ???Medication ???Instructions ???Recorded ???Confirmed ???Type multivitamin 1 tab PO DAILY #90 tabs 02/16/22 0 10/30/24 Rx potassium citrate 99 mg capsule 99 mg PO DAILY #90 caps 02/16/22 0 10/30/24 Rx cyanocobalamin (vitamin B-12) 1 tab PO DAILY 06/03/22 10/30/24 H istory magnesium gluconate 12.5 mg 250 mg PO DAILY 06/03/22 10/30/24 History magnesium (250 mg) tablet lovastatin 20 mg tablet 20 mg PO QHS cholesterol #90 tabs 03/23/23 10/30/24 Rx omeprazole 20 mg capsule,delayed 20 mg PO DAILY GERD #90 caps 03/2310/30/24 Rx release ascorbate calcium (vitamin C) 500 500 mg PO DAILY 09/23/23 10/30/24 History mg tablet blood-glucose sensor (FreeStyle #6 ea 04/10/24 10/30/24 Rx Ty 3 Plus Sensor device) tirzepatide 15 mg/0.5 mL 15 mg (0.5 mL) subcut QWEEK #6 mL 07/24/24 10/30/24 Rx subcutaneous pen injector (Agustina) levothyroxine 200 mcg tablet 200 mcg PO .Mon-Sat #90 tabs 07/3110/30/24 Rx insulin aspart 15 unit subcut TID 09/28/24 History (niacinamide)(U-100) 100 unit/mL(3 mL) subcutaneous pen (Fiasp FlexTouch U-100 Insulin) insulin glargine 100 unit/mL (3 25 unit subcut DAILY 09/28/24 0811/06 History mL) subcutaneous pen (Lantus Solostar U-100 Insulin) vitamin D3 125 mcg (5,000 1 cap PO DAILY 09/28/24 10/30/24 H istory unit)-vitamin K2 180 mcg capsule (K2-D3 Max) estradiol 0.01% (0.1 mg/gram) 1 g vaginal 3XW 3 months #42.5 10/30/24 Rx vaginal cream grams methenamine hippurate 1 gram tablet 1 g PO BID #180 tabs 10/30/24 0 10/30/24 Rx Have you fallen in the past year?: No Nurse's Note: took abx start tx 09/14/24, PCP gave anoher rx of macrobid a few days after, ended up in the ER and was given bactrim. CT scan- there was something up with her kidneys on the CT scan. She is experiencing kidney pain. [facility] Medical History (Updated 10/30/24 @ 12:[address] Pearl Egan MD) Vaginal atrophy Mixed incontinence Renal insufficiency History of ESBL E. coli infection Obesity Urinary urgency Wears glasses Wears dentures Alcohol use Arthritis Easy bruising Restless legs Dietary restriction History of diverticulitis Shortness of breath on exertion Chronic cough Leg cramps History of edema History of echocardiogram History of stress test History of colon polyps GERD (gastroesophageal reflux disease) BiPAP (biphasic positive airway pressure) dependence Pyelonephritis Non-smoker Low back pain ANISHA (obstructive sleep apnea) Asthma Diarrhea Diabetes Shoulder pain Hemorrhoids Kidney disease Cancer HTN (hypertension) Hyperlipidemia Surgical History History of laparoscopy History of oral surgery H/O: hysterectomy History of cholecystectomy History of colonoscopy ( 08/14/19) History of esophagogastroduodenoscopy (EGD) S/P colonoscopy S/P wrist surgery S/P hysterectomy Stone, kidney Status post laparoscopic cholecystectomy Family History Father Colon cancer Myocardial infarction Diabetes Hypertension Hyperlipemia Grandmother No problems noted. Mother Colon cancer Cancer Heart disease CVA (cerebral vascular accident) Diabetes Thyroid disorder Hypertension Myocardial infarction Hyperlipemia Brother Colon cancer Unknown Breast cancer 2 cousins Uncle Colon cancer Social History Smoking Status: Never smoker second hand exposure: No alcohol intake: current alcohol intake frequency: holidays/special occasions only substance use type: does not use caff (more content not included)... Normal [facility] Potassium measurement (mass/ volume)Ordered By: Pearl Egan on 10-30-2024 Potassium (Unsp spec) [Mass/Vol] 4.6 mmol/L 3.3-5.1 [facility] Serum creatinine measurement (mass/volume)Ordered By: Pearl Egan on 10-30-2024 Creatinine [Mass/Vol] 1.13 mg/dL 0.70-1.20 [facility] Serum glucose measurement (m ass/volume)Ordered By: Pearl Egan on 10-30-2024 Glucose [Mass/Vol] 187 mg/dL High 70-99 [facility] Serum or plasma calcium bernardino urement (mass/volume)Ordered By: Pearl Egan on 10-30-2024 Calcium [Mass/Vol] 9.8 mg/dL 7.6-11.0 [facility] Serum or plasma urea nitroge n measurement (mass/volume)Ordered By: Pearl Egan on 10-30-2024 Urea nitrogen [Mass/Vol] 32 mg/dL High 4-19 [facility] Sodium levelOrdered By: Monika Egan on 10-30-2024 Sodium [Moles/Vol] 139 mmol/L 133-145 [facility] Abdomen/Pelvis without Conto n 09-28-2024 Abdomen/Pelvis without Cont [facility] [address] [place] [address] Abdomen/Pelvis without Cont MR#: [id number] Acct: [id number] Name: NIMO MCCLOUD Rep #: [id number] : 1950 F 73 From: Vj Bradley MD PCP: Dr. Allison Gomez MD Status: REG ER Study: Abdomen/Pelvis without Cont Date of Exam: 09/12 10/06 Exam# [id number] Ordering Dr: Branden Argueta DO PROCEDURE: ABDOMEN/PELVIS WITHOUT CONT 09/28/2024 REASON FOR EXAM: PAIN TECHNIQUE: ABDOMEN/PELVIS WITHOUT CONT Noncontrast technique limits evaluation of the abdominal and pelvic viscera. Coronal and Sagittal reconstruction series were provided. One or more dose reduction techniques were used (e.g., Automated exposure control, adjustment of the mA and/or kV according to patient size, use of iterative reconstruction technique). RADIATION DOSE SUMMARY: CTDlvol: 22.8 mGy DLP: 1275 mGycm COMPARISON: CT abdomen and pelvis on 09/26/2024 FINDINGS: Lung bases: Mild dependent atelectasis. Multivessel coronary calcification. Liver: Unremarkable Gallbladder: Surgically absent. Spleen: Unremarkable Pancreas: Normal size. No surrounding inflammation. Adrenals: Unremarkable Kidneys: Tiny nonobstructing stone in the right kidney measuring 2 mm, unchanged. No left-sided stone. No hydronephrosis on either side. Bladder: Unremarkable Reproductive Organs: Prior hysterectomy. Adnexal regions are unremarkable. Bowel: No obstruction or inflammation. Colonic diverticulosis. Normal appendix. Lymph nodes: No suspicious lymph node enlargement. Prominent subcentimeter retroperitoneal nodes remain unchanged. Vasculature: Mild diffuse atherosclerotic calcifications are noted. Bones: Degenerative changes of the spine. Soft tissues: Stranding in the abdominal wall, unchanged and which may be related to subcutaneous injections. CT/Abdomen/Pelvis without Cont IMPRESSION: 1. No acute intra-abdominal abnormality. 2. Nonobstructing stone in the right kidney measuring 2 mm, unchanged. Reading Location: [id number] CC: Dr. Branden Argueta, ; Dr. Allison Gomez MD Chief Administrative Officer: Signed Normal [facility] Absolute lymphocyte countOrd ered By: Branden Argueta on 09-28-2024 Lymphocytes Auto (Unsp spec) [#/Vol] 2.58 10*3/uL 0.83-4.51 [facility] Anion gap in Serum or Plasma Ordered By: Branden Argueta on 09-28-2024 Anion gap [Moles/Vol] 9 mmol/L 5-15 [facility] Automated lymphocyte count a s percentage of total leukocytesOrdered By: Branden Argueta on 09-28-2024 Lymphocytes/100 WBC Auto (Unsp spec) 26.1 % 19-41 [facility] BUN/creatinine ratioOrdered By: Branden Argueta on 09-28-2024 Urea nitrogen/Creatinine [Mass ratio] 20.4 mg/mg High 10- [facility] Basic Metabolic Profile (BMP )on 09-28-2024 BUN/CRE 20.4 RATIO High 10- [facility] Comment on above: Performed By: #### L 500.2500 #### [facility] Laboratory [address] [place], [address] Calcium [Mass/Vol] 9.1 mg/dL Normal 7.6-11.0 [facility] Comment on above: Performed By: #### L 500.2500 #### [facility] Laboratory [address] [place], [address] Chloride [Moles/Vol] 103 mmol/L Normal 98-108 [facility] Comment on above: Performed By: #### L 500.2500 #### [facility] [address] [place], [address] CO2 [Moles/Vol] 24.9 mmol/L Normal 21.0-32.0 [facility] Comment on above: Performed By: #### L 500.2500 #### [facility] [address] [place], [address] Creatinine [Mass/Vol] 1.69 mg/dL High 0.70-1.20 [facility] Comment on above: Performed By: #### L 500.2500 #### [facility] [address] [place], [address] ECRCL 37.89 ml/min Low 50-250 [facility] Comment on above: Performed By: #### L 500.2500 #### [facility] [address] [place], [address] GAP 9 Normal 5-15 [facility] Comment on above: Performed By: #### L 500.2500 #### [facility] [address] [place], [address] GFR/1.73 sq M.predicted among non-blacks MDRD (S/P/Bld) [Vol rate/Area] 32 mL/min/{1.73_m2} Low >60 [facility] Comment on above: Result Comment: mL/m in/1.73m2 CKD-EPI Creatinine Equation (2020) Performed By: #### L 500.2500 #### [facility] [address] [place], [address] Glucose [Mass/Vol] 70 mg/dL Normal 70-99 [facility] Comment on above: Performed By: #### L 500.2500 #### [facility] [address] [place], [address] Potassium [Moles/Vol] 4.1 mmol/L Normal 3.3-5.1 [facility] Comment on above: Result Comment: Hemo lysis present, Results??could be affected. ?? Performed By: #### L 500.2500 #### [facility] [address] [place], [address] Sodium [Moles/Vol] 138 mmol/L Normal 133-145 [facility] Comment on above: Performed By: #### L 500.2500 #### [facility] [address] [place], [address] Urea nitrogen [Mass/Vol] 35 mg/dL High 4-19 [facility] Comment on above: Performed By: #### L 500.2500 #### [facility] [address] [place], [address] BUN/CRE 21.8 RATIO High 10-20 [facility] Comment on above: Performed By: #### L 500.4100, L506.0400, L500.4050, L506.1000, L502.0250, L501.9520 #### [facility] [address] [place], [address] Calcium [Mass/Vol] 9.7 mg/dL Normal 7.6-11.0 [facility] Comment on above: Performed By: #### L 500.4100, L506.0400, L500.4050, L506.1000, L502.0250, L501.9520 #### [facility] [address] [place], [address] Chloride [Moles/Vol] 101 mmol/L Normal 98-108 [facility] Comment on above: Performed By: #### L 500.4100, L506.0400, L500.4050, L506.1000, L502.0250, L501.9520 #### [facility] [address] [place], [address] CO2 [Moles/Vol] 24.7 mmol/L Normal 21.0-32.0 [facility] Comment on above: Performed By: #### L 500.4100, L506.0400, L500.4050, L506.1000, L502.0250, L501.9520 #### [facility] Laboratory [address] [place], [address] Creatinine [Mass/Vol] 1.68 mg/dL High 0.70-1.20 [facility] Comment on above: Performed By: #### L 500.4100, L506.0400, L500.4050, L506.1000, L502.0250, L501.9520 #### [facility] [address] [place], [address] ECRCL 38.12 ml/min Low 50-250 [facility] Comment on above: Performed By: #### L 500.4100, L506.0400, L500.4050, L506.1000, L502.0250, L501.9520 #### [facility] [address] [place], [address] GAP 10 Normal 5-15 [facility] Comment on above: Performed By: #### L 500.4100, L506.0400, L500.4050, L506.1000, L502.0250, L501.9520 #### [facility] [address] [place], [address] GFR/1.73 sq M.predicted among non-blacks MDRD (S/P/Bld) [Vol rate/Area] 32 mL/min/{1.73_m2} Low >60 [facility] Comment on above: Result Comment: mL/m in/1.73m2 CKD-EPI Creatinine Equation (2020) Performed By: #### L 500.4100, L506.0400, L500.4050, L506.1000, L502.0250, L501.9520 #### [facility] [address] [place], [address] Glucose [Mass/Vol] 115 mg/dL High 70-99 [facility] Comment on above: Performed By: #### L 500.4100, L506.0400, L500.4050, L506.1000, L502.0250, L501.9520 #### [facility] [address] [place], [address] Potassium [Moles/Vol] 4.2 mmol/L Normal 3.3-5.1 [facility] Comment on above: Performed By: #### L 500.4100, L506.0400, L500.4050, L506.1000, L502.0250, L501.9520 #### [facility] [address] [place], [address] Sodium [Moles/Vol] 136 mmol/L Normal 133-145 [facility] Comment on above: Performed By: #### L 500.4100, L506.0400, L500.4050, L506.1000, L502.0250, L501.9520 #### [facility] [address] [place], [address] Urea nitrogen [Mass/Vol] 37 mg/dL High 4-19 [facility] Comment on above: Performed By: #### L 500.4100, L506.0400, L500.4050, L506.1000, L502.0250, L501.9520 #### [facility] Laboratory [address] [place], [address] Basophil percentageOrdered B y: Branden Argueta on 09-28-2024 Basophils/100 WBC (Bld) 0.5 % 0-1 [facility] Bilirubin Test strip Ql (U)O rdered By: ED PROVIDER on 09-28-2024 Bilirubin Ql (U) Negative Negative [facility] CBC W/Diff, Automatedon 09-12 Absolute Lymph 2.58 X10 3/uL Normal 0.83-4.51 [facility] Comment on above: Performed By: #### L 500.4100, L506.0400, L500.4050, L506.1000, L502.0250, L501.9520 #### [facility] [address] [place], [address] Absolute Neut 6.0 X10 3/uL Normal 2.0-7.7 [facility] Comment on above: Performed By: #### L 500.4100, L506.0400, L500.4050, L506.1000, L502.0250, L501.9520 #### [facility] [address] [place], [address] Basophils/100 WBC (Bld) 0.5 % Normal 0-1 [facility] Comment on above: Performed By: #### L 500.4100, L506.0400, L500.4050, L506.1000, L502.0250, L501.9520 #### [facility] [address] [place], [address] Eosinophils/100 WBC (Bld) 2.6 % Normal 0-5 [facility] Comment on above: Performed By: #### L 500.4100, L506.0400, L500.4050, L506.1000, L502.0250, L501.9520 #### [facility] [address] [place], [address] Erythrocyte distribution width (RBC) [Ratio] 14.7 % High 11.6-14.6 [facility] Comment on above: Performed By: #### L 500.4100, L506.0400, L500.4050, L506.1000, L502.0250, L501.9520 #### [facility] [address] [place], [address] Hematocrit (Bld) [Volume fraction] 39.5 % Normal 37-47 [facility] Comment on above: Performed By: #### L 500.4100, L506.0400, L500.4050, L506.1000, L502.0250, L501.9520 #### [facility] [address] [place], [address] Hemoglobin (Bld) [Mass/Vol] 12.9 g/dL Normal 12.0-15.0 [facility] Comment on above: Performed By: #### L 500.4100, L506.0400, L500.4050, L506.1000, L502.0250, L501.9520 #### [facility] [address] [place], [address] IG% 0.400 Normal 0.0-0.9 [facility] Comment on above: Result Comment: IG% - Immature Granulocytes (promyelocytes, myelocytes and metamyelocytes) > 1% indicates that a LEFT SHIFT is Present. Performed By: #### L 500.4100, L506.0400, L500.4050, L506.1000, L502.0250, L501.9520 #### [facility] [address] [place], [address] Lymphocytes/100 WBC (Bld) 26.1 % Normal 19-41 [facility] Comment on above: Performed By: #### L 500.4100, L506.0400, L500.4050, L506.1000, L502.0250, L501.9520 #### [facility] [address] [place], [address] MCH (RBC) [Entitic mass] 26.5 pg Low 27.0-32.0 [facility] Comment on above: Performed By: #### L 500.4100, L506.0400, L500.4050, L506.1000, L502.0250, L501.9520 #### [facility] [address] [place], [address] MCHC (RBC) [Mass/Vol] 32.7 g/dL Normal 32-36 [facility] Comment on above: Performed By: #### L 500.4100, L506.0400, L500.4050, L506.1000, L502.0250, L501.9520 #### [facility] [address] [place], [address] MCV (RBC) [Entitic vol] 81.1 fL Normal 81-99 [facility] Comment on above: Performed By: #### L 500.4100, L506.0400, L500.4050, L506.1000, L502.0250, L501.9520 #### [facility] [address] [place], [address] Monocytes/100 WBC (Bld) 10.1 % High 0-10 [facility] Comment on above: Performed By: #### L 500.4100, L506.0400, L500.4050, L506.1000, L502.0250, L501.9520 #### [facility] [address] [place], [address] Neutrophils/100 WBC (Bld) 60.3 % Normal 47-70 [facility] Comment on above: Performed By: #### L 500.4100, L506.0400, L500.4050, L506.1000, L502.0250, L501.9520 #### [facility] [address] [place], [address] Nucleated RBC (Bld) [#/Vol] 0 10*3/uL Normal 0-5 [facility] Comment on above: Performed By: #### L 500.4100, L506.0400, L500.4050, L506.1000, L502.0250, L501.9520 #### [facility] [address] [place], [address] Platelet mean volume (Bld) [Entitic vol] 10.3 fL Normal 6.2-12.0 [facility] Comment on above: Performed By: #### L 500.4100, L506.0400, L500.4050, L506.1000, L502.0250, L501.9520 #### [facility] Laboratory [address] [place], [address] Platelets (Bld) [#/Vol] 219 10*3/uL Normal 150-450 [facility] Comment on above: Performed By: #### L 500.4100, L506.0400, L500.4050, L506.1000, L502.0250, L501.9520 #### [facility] [address] [place], [address] RBC (Bld) [#/Vol] 4.87 10*6/uL Normal 4.2-5.4 [facility] Comment on above: Performed By: #### L 500.4100, L506.0400, L500.4050, L506.1000, L502.0250, L501.9520 #### [facility] [address] [place], [address] RDW SD 42.5 fl Normal 35.1-43.9 [facility] Comment on above: Performed By: #### L 500.4100, L506.0400, L500.4050, L506.1000, L502.0250, L501.9520 #### [facility] [address] [place], [address] WBC (Bld) [#/Vol] 9.9 10*3/uL Normal 4.4-11.0 [facility] Comment on above: Performed By: #### L 500.4100, L506.0400, L500.4050, L506.1000, L502.0250, L501.9520 #### [facility] [address] [place], [address] Carbon dioxide, total [Moles /volume] in Central venous bloodOrdered By: Branden Argueta on 09-28-2024 CO2 [Moles/Vol] 24.9 mmol/L 21.0-32.0 [facility] Chloride assayOrdered By: Vito Argueta on 09-28-2024 Chloride [Moles/Vol] 103 mmol/L 98-108 [facility] Emergency Department Summary on 09-28-2024 Emergency Department Summary [facility] Medical Records Department [address] [facility] [place] [address] Emergency Department Summary 09/28/24 MR#: [id number] Acct: [id number] Name: NIMO MCCLOUD Rep #: [id number] : 1950 73 From: Branden Argueta DO PCP: Dr. Allison Gomez MD Status:REG ER Location: ED HPI HPI - Female History of Present Illness Chief Complaint: Complaint Narrative Narrative: Chief complaint and HPI: Dysuria. History taken by patient as well as medical record. 73-year-old female with past medical history of HTN, UTIs with some being drug-resistant ESBL, CKD, DM 2 presents for evaluation of dysuria. Associated symptoms are flank pain and nausea. Patient states she was diagnosed with a UTI multiple days ago. Started on Macrobid. Took it for 7 days. Finished it a week ago last Wednesday. Followed up with PCP who stated she still had a UTI and placed her on another 7-day course of Macrobid. Urine cultures returned ESBL E. coli sensitive to Bactrim and IV antibiotics. Patient was seen in our emergency department on 09/26 for same complaint. At that time she had laboratory workup that was relatively unremarkable. She did CT abdomen pelvis that was negative. She was discharged home on Bactrim. Patient states her symptoms have not improved which is why she presents. She denies any fever, chills, chest pain, shortness of breath. Review of systems: See HPI Medications: As listed on the chart Allergies: As listed on the chart PFSH: Per chart Vital signs: As listed on the chart. Reviewed. Physical exam: Gen: A O x3, NAD Head: Normocephalic, atraumatic Eyes: No sclera icterus, conjunctiva clear ENT: Moist mucous membranes Neck: Trachea midline, No JVD CV: RRR, no murmurs, no peripheral edema Resp: Lungs CTA BL, no w/r/c GI: Abd soft, non-distended, non-tender, no r/r/g : No CVA tenderness, paraspinal musculature of the lumbar spine tender to palpation bilaterally Musc: Full ROM, no deformity Skin: Warm, dry Neuro: Alert, oriented, grossly intact, sensation intact Psych: Cooperative, appropriate mood and affect [facility] Medical History History of ESBL E. coli infection Obesity Urinary urgency Wears glasses Wears dentures Alcohol use Arthritis Easy bruising Restless legs Dietary restriction History of diverticulitis Shortness of breath on exertion Chronic cough Leg cramps History of edema History of echocardiogram History of stress test History of colon polyps GERD (gastroesophageal reflux disease) BiPAP (biphasic positive airway pressure) dependence Pyelonephritis Non-smoker Low back pain ANISHA (obstructive sleep apnea) Asthma Diarrhea Diabetes Shoulder pain Hemorrhoids Kidney disease Cancer HTN (hypertension) Hyperlipidemia Home Medications ???Medication ???Instructions ???Recorded ???Last Taken ???Type multivitamin 1 tab PO DAILY #90 tabs 02/16/22 U nknown Rx potassium citrate 99 mg capsule 99 mg PO DAILY #90 caps 02/16/22 U nknown Rx cyanocobalamin (vitamin B-12) 1 tab PO DAILY 06/03/22 Unknown Hi story magnesium gluconate 12.5 mg 250 mg PO DAILY 06/03/22 Unknown H istory magnesium (250 mg) tablet lovastatin 20 mg tablet 20 mg PO QHS cholesterol #90 tabs 03/23/23 Unknown Rx omeprazole 20 mg capsule,delayed 20 mg PO DAILY GERD #90 caps 03/23 Unknown Rx release ascorbate calcium (vitamin C) 500 500 mg PO DAILY 09/23/23 Unknown History mg tablet blood-glucose sensor (FreeStyle #6 ea 04/10/24 Unknown Rx Ty 3 Plus Sensor device) tirzepatide 15 mg/0.5 mL 15 mg (0.5 mL) subcut QWEEK #6 mL 07/24/24 Unknown Rx subcutaneous pen injector (Mounjaro) levothyroxine 200 mcg tablet 200 mcg PO .Mon-Sat #90 tabs 07/31 Unknown Rx nitrofurantoin 100 mg PO BID #14 caps 09/22/24 Un known Rx monohydrate/macrocrystals 100 mg capsule (Macrobid) sulfamethoxazole 800 1 tab PO BID 7 days #14 tabs 09/26 Unknown Rx mg-trimethoprim 160 mg tablet (Bactrim DS) insulin aspart 15 unit subcut TID 09/28/24 Unknow n History (niacinamide)(U-100) 100 unit/mL(3 mL) subcutaneous pen (Fiasp FlexTouch U-100 Insulin) insulin glargine 100 unit/mL (3 25 unit subcut DAILY 09/28/24 Unkn own History mL) subcutaneous pen (Lantus Solostar U-100 Insulin) vitamin D3 125 mcg (5,000 1 cap PO DAILY 09/28/24 Unknown Hi story unit)-vitamin K2 180 mcg capsule (K2-D3 Max) Allergy/AdvReac Type Severity Reaction Status Date / Time ciprofloxacin (From Cipro) Allergy Mild Rash Verified 09/28/24 19:10 ondansetron HCl (From Zofran Allergy Rash Verified 09/28/24 19:10 (as hydrochloride)) oxycodone HCl (From Percocet) Allergy Rash Verified 09/28/24 19:10 Penicillins (PCN) Allergy Other Verified 09/28 (more content not included)... Normal [facility] Eosinophil percentageOrdered By: Branden Argueta on 09-28-2024 Eosinophils/100 WBC (Bld) 2.6 % 0-5 [facility] Erythrocyte distribution wid th ratioOrdered By: Branden Argueta on 09-28-2024 Erythrocyte distribution width (RBC) [Ratio] 14.7 % High 11.6-14.6 [facility] Erythrocyte distribution wid th standard deviationOrdered By: Branden Bass on 09-28-2024 Erythrocyte distribution width (RBC) [Ratio] 42.5 fl 35.1-43.9 [facility] Glomerular filtration rate ( GFR) estimation/1.73 sq m using serum, plasma, or whole bOrdered By: Branden Argueta on 09-28-2024 GFR/1.73 sq M.predicted among non-blacks MDRD (S/P/Bld) [Vol rate/Area] 32 mL/min/{1.73_m2} Low >60 [facility] Hematocrit Auto (Bld) [Volum e fraction]Ordered By: Branden Argueta on 09-28-2024 Hematocrit (Bld) [Volume fraction] 39.5 % 37-47 [facility] Hemoglobin measurementOrdere d By: Branden Argueta on 09-28-2024 Hemoglobin (Bld) [Mass/Vol] 12.9 g/dL 12.0-15.0 [facility] Immature granulocytes/100 WB C Auto (Bld)Ordered By: Branden Argueta on 09-28-2024 Immature granulocytes/100 WBC (Bld) 0.400 % 0.0-0.9 [facility] Ketones Test strip Ql (U)Ord ered By: ED PROVIDER on 09-28-2024 Ketones Ql (U) Negative Negative [facility] MCV (mean corpuscular volume ) determinationOrdered By: Branden Argueta on 09-28-2024 MCV (RBC) [Entitic vol] 81.1 fL 81-99 [facility] Mean corpuscular hemoglobin (MCH) determinationOrdered By: Branden Argueta on 09-28-2024 MCH (RBC) [Entitic mass] 26.5 pg Low 27.0-32.0 [facility] Monocyte percentageOrdered B y: Branden Argueta on 09-28-2024 Monocytes/100 WBC (Bld) 10.1 % High 0-10 [facility] Mucus LM Ql (Urine sed)Order ed By: Branden Argueta on 09-28-2024 Mucus Ql (Urine sed) 0 SEEN /hpf [facility] Neutrophil percentageOrdered By: Branden Argueta on 09-28-2024 Neutrophils/100 WBC (Bld) 60.3 % 47-70 [facility] Nitrite Test strip Ql (U)Ord ered By: ED PROVIDER on 09-28-2024 Nitrite Ql (U) Negative Negative [facility] Platelet countOrdered By: Vito Argueta on 09-28-2024 Platelets (Bld) [#/Vol] 219 10*3/uL 150-450 [facility] Potassium measurement (mass/ volume)Ordered By: Branden Argueta on 09-28-2024 Potassium (Unsp spec) [Mass/Vol] 4.1 mmol/L 3.3-5.1 [facility] Protein Test strip Ql (U)Ord ered By: ED PROVIDER on 09-28-2024 Protein Ql (U) 15 mg/dl High Negative [facility] RBC Auto (Bld) [#/Vol]Ordere d By: Branden Argueta on 09-28-2024 RBC (Bld) [#/Vol] 4.87 10*6/uL 4.2-5.4 [facility] Serum creatinine measurement (mass/volume)Ordered By: Branden Argueta on 09-28-2024 Creatinine [Mass/Vol] 1.69 mg/dL High 0.70-1.20 [facility] Serum glucose measurement (m ass/volume)Ordered By: Branden Argueta on 09-28-2024 Glucose [Mass/Vol] 70 mg/dL 70-99 [facility] Serum or plasma calcium bernardino urement (mass/volume)Ordered By: Brnaden Bass on 09-28-2024 Calcium [Mass/Vol] 9.1 mg/dL 7.6-11.0 [facility] Serum or plasma urea nitroge n measurement (mass/volume)Ordered By: Branden Argueta on 09-28-2024 Urea nitrogen [Mass/Vol] 35 mg/dL High 4-19 [facility] Sodium levelOrdered By: Collins Argueta on 09-28-2024 Sodium [Moles/Vol] 138 mmol/L 133-145 [facility] Squamous epithelial cells de tection in urine sediment by light microscopyOrdered By: Branden Argueta on 09-28-2024 Epithelial cells.squamous LM Ql (Urine sed) 0-5 SEEN /hpf - [facility] Urinalysis, Completeon 09-28 EPI,SQUAMOUS 0-5 SEEN Normal - [facility] Comment on above: Order Comment: CLEAN CATCH Performed By: #### L 500.4100, L506.0400, L500.4050, L506.1000, L502.0250, L501.9520 #### [facility] Laboratory [address] [place], [address] RBC 0-5 SEEN Normal 0-5 [facility] Comment on above: Order Comment: CLEAN CATCH Performed By: #### L 500.4100, L506.0400, L500.4050, L506.1000, L502.0250, L501.9520 #### [facility] [address] [place], [address] WBC 0-5 SEEN Normal 0-5 [facility] Comment on above: Order Comment: CLEAN CATCH Performed By: #### L 500.4100, L506.0400, L500.4050, L506.1000, L502.0250, L501.9520 #### [facility] [address] [place], [address] BACTERIA 0 SEEN Normal None Seen [facility] Comment on above: Order Comment: CLEAN CATCH Performed By: #### L 500.4100, L506.0400, L500.4050, L506.1000, L502.0250, L501.9520 #### [facility] [address] [place], [address] Mucus Ql (Urine sed) 0 SEEN Normal [facility] Comment on above: Order Comment: CLEAN CATCH Performed By: #### L 500.4100, L506.0400, L500.4050, L506.1000, L502.0250, L501.9520 #### [facility] [address] [place], [address] Urine clarityOrdered By: ED PROVIDER on 09-28-2024 Clarity (U) Clear Clear [facility] Urine color determinationOrd ered By: ED PROVIDER on 09-28-2024 Color (U) Yellow Yellow [facility] Urine glucose detectionOrder ed By: ED PROVIDER on 09-28-2024 Glucose Ql (U) Normal mg/dl Normal [facility] Urine leukocyte esterase det ection by dipstickOrdered By: ED PROVIDER on 09-28-2024 Leukocyte esterase Test strip Ql (U) 25 /ul High Negative [facility] Urine pHOrdered By: ED PROVI ANALI on 09-28-2024 pH (U) 6.5 [pH] 5.0 - 8.0 [facility] Urine sediment bacteria coun t by microscopy (number/high power field)Ordered By: Branden Argueta on 09-28-2024 Bacteria LM.HPF (Urine sed) [#/Area] 0 /[HPF] None Seen [facility] Urine specific gravity measu rementOrdered By: ED PROVIDER on 09-28-2024 Specific gravity (U) [Rel density] 1.010 1.002-1.03 0 [facility] Urine urobilinogen measureme ntOrdered By: ED PROVIDER on 09-28-2024 Urobilinogen Ql (U) Normal mg/dl Normal [facility] White blood cell (WBC) count Ordered By: Branden Argueta on 09-28-2024 WBC (Bld) [#/Vol] 9.9 10*3/uL 4.4-11.0 [facility] White blood cell countOrdere d By: Branden Argueta on 09-28-2024 White blood cell count 0-5 SEEN /hpf 0-5 [facility] Abdomen/Pelvis without Conto n 09-26-2024 Abdomen/Pelvis without Cont [facility] Services [address] [place] [address] Abdomen/Pelvis without Cont MR#: [id number] Acct: [id number] Name: NIMO MCCLOUD Rep #: [id number] : 1950 F 73 From: Vj Bradley MD PCP: Dr. Allison Gomez MD Status: REG ER Study: Abdomen/Pelvis without Cont Date of Exam: 09/12 08/06 Exam# [id number] Ordering Dr: Micah Young MD PROCEDURE: ABDOMEN/PELVIS WITHOUT CONT 09/26/2024 REASON FOR EXAM: PAIN TECHNIQUE: ABDOMEN/PELVIS WITHOUT CONT Noncontrast technique limits evaluation of the abdominal and pelvic viscera. Coronal and Sagittal reconstruction series were provided. One or more dose reduction techniques were used (e.g., Automated exposure control, adjustment of the mA and/or kV according to patient size, use of iterative reconstruction technique). RADIATION DOSE SUMMARY: CTDlvol: 22.9 mGy DLP: 1220 mGycm COMPARISON: CT abdomen and pelvis on 05/07/2024 FINDINGS: Lung bases: Mild cardiomegaly with coronary calcifications. Lung bases are clear. Liver: Unremarkable Gallbladder: Surgically absent. Spleen: Unremarkable Pancreas: Normal size. No surrounding inflammation. Adrenals: Unremarkable Kidneys: Punctate nonobstructing stone in the right kidney measuring 2 mm, unchanged. No hydronephrosis. Bladder: Unremarkable Reproductive Organs: Prior hysterectomy. Adnexal regions are unremarkable. Bowel: No obstruction or inflammation. Colonic diverticulosis. Normal appendix. Lymph nodes: There are few prominent subcentimeter retroperitoneal lymph nodes, unchanged. Vasculature: Mild diffuse atherosclerotic calcifications are noted. Bones: Degenerative changes of the spine. Soft tissues: Stranding in the abdominal wall, unchanged and possibly related to subcutaneous injections. CT/Abdomen/Pelvis without Cont IMPRESSION: No acute intra-abdominal abnormality. Reading Location: [id number] CC: Dr. Micah Young MD; Dr. Allison Gomez MD Chief Administrative Officer: Signed Normal [facility] Absolute lymphocyte countOrd ered By: Micah Young on 09-26-2024 Lymphocytes Auto (Unsp spec) [#/Vol] 3.09 10*3/uL 0.83-4.51 [facility] Absolute neutrophil countOrd ered By: Micah Young on 09-26-2024 Neutrophils (Bld) [#/Vol] 6.2 10*3/uL 2.0-7.7 [facility] Anion gap in Serum or Plasma Ordered By: Micah Young on 09-26-2024 Anion gap [Moles/Vol] 12 mmol/L 07-27 [facility] Automated blood erythrocyte countOrdered By: Micah Young on 09-26-2024 RBC (Bld) [#/Vol] 5.00 10*6/uL Normal 4.2-5.4 [facility] Comment on above: Performed By: #### L 500.4100, L506.0400, L500.4050, L506.1000, L502.0250, L501.9520 #### [facility] [address] [facility] [place], [place], [id number] Automated blood hematocrit ( percentage)Ordered By: Micah Young on 09-26-2024 Hematocrit (Bld) [Volume fraction] 40.6 % Normal 37-47 [facility] Comment on above: Performed By: #### L 500.4100, L506.0400, L500.4050, L506.1000, L502.0250, L501.9520 #### [facility] [address] [place], [address] Automated lymphocyte count a s percentage of total leukocytesOrdered By: Micah Young on 09-26-2024 Lymphocytes/100 WBC Auto (Unsp spec) 29.5 % [facility] BUN/creatinine ratioOrdered By: Micah Young on 09-26-2024 Urea nitrogen/Creatinine [Mass ratio] 24.6 mg/mg High 01-01 [facility] Basic Metabolic Profile (BMP )on 09-26-2024 BUN/CRE 24.6 RATIO High 10-20 [facility] Comment on above: Performed By: #### L 500.4100, L506.0400, L500.4050, L506.1000, L502.0250, L501.9520 #### [facility] [address] [place], [address] ECRCL 51.40 ml/min Normal 50-250 [facility] Comment on above: Performed By: #### L 500.4100, L506.0400, L500.4050, L506.1000, L502.0250, L501.9520 #### [facility] [address] [place], [address] GAP 12 Normal 5-15 [facility] Comment on above: Performed By: #### L 500.4100, L506.0400, L500.4050, L506.1000, L502.0250, L501.9520 #### [facility] [address] [place], [address] Potassium [Moles/Vol] 4.1 mmol/L Normal 3.3-5.1 [facility] Comment on above: Performed By: #### L 500.4100, L506.0400, L500.4050, L506.1000, L502.0250, L501.9520 #### [facility] [address] [place], [address] Basophil percentageOrdered B y: Micah Young on 09-26-2024 Basophils/100 WBC (Bld) 0.5 % Normal 0-1 [facility] Comment on above: Performed By: #### L 500.4100, L506.0400, L500.4050, L506.1000, L502.0250, L501.9520 #### [facility] [address] [place], [address] Bilirubin Test strip Ql (U)O rdered By: Micah Young on 09-26-2024 Bilirubin Ql (U) Negative Negative [facility] CBC W/Diff, Automatedon 07-1 Absolute Lymph 3.09 X10 3/uL Normal 0.83-4.51 [facility] Comment on above: Performed By: #### L 500.4100, L506.0400, L500.4050, L506.1000, L502.0250, L501.9520 #### [facility] [address] [place], [address] Absolute Neut 6.2 X10 3/uL Normal 2.0-7.7 [facility] Comment on above: Performed By: #### L 500.4100, L506.0400, L500.4050, L506.1000, L502.0250, L501.9520 #### [facility] [address] [place], [address] IG% 0.400 Normal 0.0-0.9 [facility] Comment on above: Result Comment: IG% - Immature Granulocytes (promyelocytes, myelocytes and metamyelocytes) > 1% indicates that a LEFT SHIFT is Present. Performed By: #### L 500.4100, L506.0400, L500.4050, L506.1000, L502.0250, L501.9520 #### [facility] [address] [place], [address] Lymphocytes/100 WBC (Bld) 29.5 % Normal 19-41 [facility] Comment on above: Performed By: #### L 500.4100, L506.0400, L500.4050, L506.1000, L502.0250, L501.9520 #### [facility] [address] [place], [address] Nucleated RBC (Bld) [#/Vol] 0 10*3/uL Normal 0-5 [facility] Comment on above: Performed By: #### L 500.4100, L506.0400, L500.4050, L506.1000, L502.0250, L501.9520 #### [facility] [address] [place], [address] RDW SD 42.4 fl Normal 35.1-43.9 [facility] Comment on above: Performed By: #### L 500.4100, L506.0400, L500.4050, L506.1000, L502.0250, L501.9520 #### [facility] [address] [place], [address] Carbon dioxide, total [Moles /volume] in Central venous bloodOrdered By: Micah Young on 09-26-2024 CO2 [Moles/Vol] 24.0 mmol/L Normal 21.0-32.0 [facility] Comment on above: Performed By: #### L 500.4100, L506.0400, L500.4050, L506.1000, L502.0250, L501.9520 #### [facility] [address] [place], [address] Chloride assayOrdered By: Isaiah Young on 09-26-2024 Chloride [Moles/Vol] 99 mmol/L Normal 98-108 [facility] Comment on above: Performed By: #### L 500.4100, L506.0400, L500.4050, L506.1000, L502.0250, L501.9520 #### [facility] [address] [place], [address] Emergency Department Summary on 09-26-2024 Emergency Department Summary [facility] Medical Records Department [address] [place] [address] Emergency Department Summary 09/26/24 MR#: [id number] Acct: [id number] Name: NIMO MCCLOUD Rep #: [id number] : 1950 73 From: Micah Young MD PCP: Dr. Allison Gomez MD Status:REG ER Location: ED HPI HPI - Female History of Present Illness Chief Complaint: Complaint Informant: patient Narrative Narrative: 73-year-old female history of hypertension, UTIs with some being drug-resistant ESBL, chronic kidney disease diabetes. Was diagnosed a UTI about 10+ days ago. Started on Macrobid. Took it for 7 days. Finished it a week ago last Wednesday. Was not feeling better. Followed up with her primary care physician. He put her on 7 more days of Macrobid to the urine culture. Urine cultures returned ESBL E. coli sensitive to Bactrim and IV antibiotics. Patient house complaining of flank pain and some nausea. Has had kidney stones in the past. Prior similar symptoms: Yes Recent Illness/Hospitalization: No PFSH PFSH Medical History History of ESBL E. coli infection Obesity Urinary urgency Wears glasses Wears dentures Alcohol use Arthritis Easy bruising Restless legs Dietary restriction History of diverticulitis Shortness of breath on exertion Chronic cough Leg cramps History of edema History of echocardiogram History of stress test History of colon polyps GERD (gastroesophageal reflux disease) BiPAP (biphasic positive airway pressure) dependence Pyelonephritis Non-smoker Low back pain ANISHA (obstructive sleep apnea) Asthma Diarrhea Diabetes Shoulder pain Hemorrhoids Kidney disease Cancer HTN (hypertension) Hyperlipidemia Home Medications ???Medication ???Instructions ???Recorded ???Last Taken ???Type multivitamin 1 tab PO DAILY #90 tabs 02/16/22 U nknown Rx potassium citrate 99 mg capsule 99 mg PO DAILY #90 caps 02/16/22 U nknown Rx cyanocobalamin (vitamin B-12) 1 tab PO DAILY 06/03/22 Unknown Hi story magnesium gluconate 12.5 mg 250 mg PO DAILY 06/03/22 Unknown H istory magnesium (250 mg) tablet lovastatin 20 mg tablet 20 mg PO QHS cholesterol #90 tabs 03/23/23 Unknown Rx omeprazole 20 mg capsule,delayed 20 mg PO DAILY GERD #90 caps 03/23 Unknown Rx release ascorbate calcium (vitamin C) 500 500 mg PO DAILY 09/23/23 Unknown History mg tablet losartan 100 mg tablet 100 mg PO QDAY #30 tabs 03/23/24 U nknown Rx Lantus Solostar U-100 Insulin 100 50 unit (0.5 mL) subcut DAILY #45 04/10/24 Unknown Rx unit/mL (3 mL) subcutaneous pen mL (insulin glargine) blood-glucose sensor (FreeStyle #6 ea 04/10/24 Unknown Rx Ty 3 Plus Sensor device) insulin aspart 35 unit subcut TID #94.5 mL Unknown Rx (niacinamide)(U-100) 100 unit/mL(3 mL) subcutaneous pen (Fiasp FlexTouch U-100 Insulin) famotidine 20 mg tablet (Pepcid) 20 mg PO BID 14 days #28 tabs 04/16 06/06 Unknown Rx tirzepatide 15 mg/0.5 mL 15 mg (0.5 mL) subcut QWEEK #6 mL 07/24/24 Unknown Rx subcutaneous pen injector (Mounjaro) levothyroxine 200 mcg tablet 200 mcg PO .Mon-Sat #90 tabs 07/31 Unknown Rx nitrofurantoin 100 mg PO BID #14 caps 09/22/24 Un known Rx monohydrate/macrocrystals 100 mg capsule (Macrobid) sulfamethoxazole 800 1 tab PO BID 7 days #14 tabs 09/26 Unknown Rx mg-trimethoprim 160 mg tablet (Bactrim DS) Allergy/AdvReac Type Severity Reaction Status Date / Time ciprofloxacin (From Cipro) Allergy Mild Rash Verified 09/26/24 19:36 ondansetron HCl (From Zofran Allergy Rash Verified 09/26/24 19:36 (as hydrochloride)) oxycodone HCl (From Percocet) Allergy Rash Verified 09/26/24 19:36 Penicillins (PCN) Allergy Other Verified 09/26/24 19:36 propoxyphene napsylate (From Allergy Rash Verified 09/26/24 19:36 Darvocet-N 100) nickel AdvReac Intermediate Rash Verified 09/26/24 19:36 Family History Father Colon cancer Myocardial infarction Diabetes Hypertension Hyperlipemia Grandmother No problems noted. Mother Colon cancer Cancer Heart disease CVA (cerebral vascular accident) Diabetes Thyroid disorder Hypertension Myocardial infarction Hyperlipemia Brother Colon cancer Unknown Breast cancer 2 cousins Uncle Colon cancer Surgical History History of laparoscopy History of oral surgery H/O: hysterectomy History of cholecystectomy History of colonoscopy ( 08/14/19) History of esophagogastroduodenoscopy (EGD) S/P colonoscopy S/P wrist surgery S/P hysterectomy Stone, kidney Status post laparoscopic cholecystectomy Social History ... Normal [facility] Eosinophil percentageOrdered By: Micah Young on 09-26-2024 Eosinophils/100 WBC (Bld) 2.2 % Normal 0-5 [facility] Comment on above: Performed By: #### L 500.4100, L506.0400, L500.4050, L506.1000, L502.0250, L501.9520 #### [facility] [address] [place], [place], [id number] Erythrocyte distribution wid th ratioOrdered By: Micah Young on 09-26-2024 Erythrocyte distribution width (RBC) [Ratio] 14.6 % Normal 11.6-14.6 [facility] Comment on above: Performed By: #### L 500.4100, L506.0400, L500.4050, L506.1000, L502.0250, L501.9520 #### [facility] [address] [facility] [place], [place], [id number] Erythrocyte distribution wid th standard deviationOrdered By: Micah Young on 09-26-2024 Erythrocyte distribution width (RBC) [Ratio] 42.4 fl 35.1-43.9 [facility] Glomerular filtration rate ( GFR) estimation/1.73 sq m using serum, plasma, or whole bOrdered By: Micah Young on 09-26-2024 GFR/1.73 sq M.predicted among non-blacks MDRD (S/P/Bld) [Vol rate/Area] 46 mL/min/{1.73_m2} Low >60 [facility] Comment on above: mL/min/1.73m2 CKD-EP I Creatinine Equation (2020) Result Comment: mL/m in/1.73m2 CKD-EPI Creatinine Equation (2020) Performed By: #### L 500.4100, L506.0400, L500.4050, L506.1000, L502.0250, L501.9520 #### [facility] [address] [place], [address] Hemoglobin measurementOrdere d By: Micah Young on 09-26-2024 Hemoglobin (Bld) [Mass/Vol] 13.0 g/dL Normal 12.0-15.0 [facility] Comment on above: Performed By: #### L 500.4100, L506.0400, L500.4050, L506.1000, L502.0250, L501.9520 #### [facility] [address] [place], [place], [id number] Immature granulocytes/100 WB C Auto (Bld)Ordered By: Micah Young on 09-26-2024 Immature granulocytes/100 WBC (Bld) 0.400 % 0.0-0.9 [facility] Comment on above: IG% - Immature Granu locytes (promyelocytes, myelocytes and metamyelocytes) > 1% indicates that a LEFT SHIFT is Present. Ketones Test strip Ql (U)Ord ered By: Micah Young on 09-26-2024 Ketones Ql (U) Negative Negative [facility] MCV (mean corpuscular volume ) determinationOrdered By: Micah Young on 09-26-2024 MCV (RBC) [Entitic vol] 81.2 fL Normal 81-99 [facility] Comment on above: Performed By: #### L 500.4100, L506.0400, L500.4050, L506.1000, L502.0250, L501.9520 #### [facility] [address] [place], [address] Mean corpuscular hemoglobin (MCH) determinationOrdered By: Micah Young on 09-26-2024 MCH (RBC) [Entitic mass] 26.0 pg Low 27.0-32.0 [facility] Comment on above: Performed By: #### L 500.4100, L506.0400, L500.4050, L506.1000, L502.0250, L501.9520 #### [facility] [address] [place], [place], [id number] Mean corpuscular hemoglobin concentration (MCHC) determinationOrdered By: Micah Young on 09-26-2024 MCHC (RBC) [Mass/Vol] 32.0 g/dL Normal 32-36 [facility] Comment on above: Performed By: #### L 500.4100, L506.0400, L500.4050, L506.1000, L502.0250, L501.9520 #### [facility] [address] [facility] [place], [address] Mean platelet volume determi nationOrdered By: Micah Young on 09-26-2024 Platelet mean volume (Bld) [Entitic vol] 10.5 fL Normal 6.2-12.0 [facility] Comment on above: Performed By: #### L 500.4100, L506.0400, L500.4050, L506.1000, L502.0250, L501.9520 #### [facility] [address] [facility] [place], [address] Microscopic analysis of urin e for red blood cells (RBC)Ordered By: Micah Young on 09-26-2024 Microscopic analysis of urine for red blood cells (RBC) 0 SEEN /hpf 0-5 [facility] Monocyte percentageOrdered B y: Micah Young on 09-26-2024 Monocytes/100 WBC (Bld) 8.5 % Normal 0-10 [facility] Comment on above: Performed By: #### L 500.4100, L506.0400, L500.4050, L506.1000, L502.0250, L501.9520 #### [facility] [address] [facility] [place], [place], [id number] Mucus LM Ql (Urine sed)Order ed By: Micah Young on 09-26-2024 Mucus Ql (Urine sed) 0 SEEN /hpf [facility] Neutrophil percentageOrdered By: Micah Young on 09-26-2024 Neutrophils/100 WBC (Bld) 58.9 % Normal 47-70 [facility] Comment on above: Performed By: #### L 500.4100, L506.0400, L500.4050, L506.1000, L502.0250, L501.9520 #### [facility] [address] [place], [address] Nitrite Test strip Ql (U)Ord ered By: Micah Young on 09-26-2024 Nitrite Ql (U) Negative Negative [facility] Nucleated red blood cell per centageOrdered By: Micah Young on 09-26-2024 Nucleated RBC/100 WBC (Bld) [Ratio] 0 % 0-5 [facility] Platelet countOrdered By: Isaiah Young on 09-26-2024 Platelets (Bld) [#/Vol] 220 10*3/uL Normal 150-450 [facility] Comment on above: Performed By: #### L 500.4100, L506.0400, L500.4050, L506.1000, L502.0250, L501.9520 #### [facility] [address] [place], [address] Potassium measurement (mass/ volume)Ordered By: Micah Young on 09-26-2024 Potassium (Unsp spec) [Mass/Vol] 4.1 mmol/L 3.3-5.1 [facility] Protein Test strip Ql (U)Ord ered By: Micah Young on 09-26-2024 Protein Ql (U) 15 mg/dl High Negative [facility] Serum creatinine measurement (mass/volume)Ordered By: Micah Young on 09-26-2024 Creatinine [Mass/Vol] 1.25 mg/dL High 0.70-1.20 [facility] Comment on above: Performed By: #### L 500.4100, L506.0400, L500.4050, L506.1000, L502.0250, L501.9520 #### [facility] [address] [place], [address] Serum glucose measurement (m ass/volume)Ordered By: Micah Young on 09-26-2024 Glucose [Mass/Vol] 112 mg/dL High 70-99 [facility] Comment on above: Performed By: #### L 500.4100, L506.0400, L500.4050, L506.1000, L502.0250, L501.9520 #### [facility] [address] [place], [address] Serum or plasma calcium bernardino urement (mass/volume)Ordered By: Micah Young on 09-26-2024 Calcium [Mass/Vol] 9.6 mg/dL Normal 7.6-11.0 [facility] Comment on above: Performed By: #### L 500.4100, L506.0400, L500.4050, L506.1000, L502.0250, L501.9520 #### [facility] [address] [place], [address] Serum or plasma urea nitroge n measurement (mass/volume)Ordered By: Micah Young on 09-26-2024 Urea nitrogen [Mass/Vol] 31 mg/dL High 4-19 [facility] Comment on above: Performed By: #### L 500.4100, L506.0400, L500.4050, L506.1000, L502.0250, L501.9520 #### [facility] [address] [place], [address] Sodium levelOrdered By: Micah Young on 09-26-2024 Sodium [Moles/Vol] 136 mmol/L Normal 133-145 [facility] Comment on above: Performed By: #### L 500.4100, L506.0400, L500.4050, L506.1000, L502.0250, L501.9520 #### [facility] [address] [facility] [facility] [place], [address] Squamous epithelial cells de tection in urine sediment by light microscopyOrdered By: Micah Young on 09-26-2024 Epithelial cells.squamous LM Ql (Urine sed) 0-5 SEEN /hpf 5-10 [facility] Urinalysis, Completeon 09-26 EPI,SQUAMOUS 0-5 SEEN Normal 5-10 [facility] Comment on above: Order Comment: CLEAN CATCH Performed By: #### L 500.4100, L506.0400, L500.4050, L506.1000, L502.0250, L501.9520 #### [facility] [address] [place], [address] BACTERIA 0 SEEN Normal None Seen [facility] Comment on above: Order Comment: CLEAN CATCH Performed By: #### L 500.4100, L506.0400, L500.4050, L506.1000, L502.0250, L501.9520 #### [facility] [address] [place], [address] Mucus Ql (Urine sed) 0 SEEN Normal [facility] Comment on above: Order Comment: CLEAN CATCH Performed By: #### L 500.4100, L506.0400, L500.4050, L506.1000, L502.0250, L501.9520 #### [facility] [facility] [address] [place], [address] RBC 0 SEEN Normal 0-5 [facility] Comment on above: Order Comment: CLEAN CATCH Performed By: #### L 500.4100, L506.0400, L500.4050, L506.1000, L502.0250, L501.9520 #### [facility] [address] [place], [address] WBC 0 SEEN Normal 0-5 [facility] Comment on above: Order Comment: CLEAN CATCH Performed By: #### L 500.4100, L506.0400, L500.4050, L506.1000, L502.0250, L501.9520 #### [facility] [address] [place], [address] Urine clarityOrdered By: Julio Young on 09-26-2024 Clarity (U) Clear Clear [facility] Urine color determinationOrd ered By: Micah Young on 09-26-2024 Color (U) Yellow Yellow [facility] Urine glucose detectionOrder ed By: Micah Young on 09-26-2024 Glucose Ql (U) Normal mg/dl Normal [facility] Urine leukocyte esterase det ection by dipstickOrdered By: Micah Young on 09-26-2024 Leukocyte esterase Test strip Ql (U) 25 /ul High Negative [facility] Urine pHOrdered By: Micah munoz on 09-26-2024 pH (U) 6.0 [pH] 5.0 - 8.0 [facility] Urine sediment bacteria coun t by microscopy (number/high power field)Ordered By: Micah Young on 09-26-2024 Bacteria LM.HPF (Urine sed) [#/Area] 0 /[HPF] None Seen [facility] Urine specific gravity measu rementOrdered By: Micah Young on 09-26-2024 Specific gravity (U) [Rel density] 1.020 1.002-1.03 0 [facility] Urine urobilinogen measureme ntOrdered By: Micah Young on 09-26-2024 Urobilinogen Ql (U) Normal mg/dl Normal [facility] White blood cell (WBC) count Ordered By: Micah Young on 09-26-2024 WBC (Bld) [#/Vol] 10.5 10*3/uL Normal 4.4-11.0 [facility] Comment on above: Performed By: #### L 500.4100, L506.0400, L500.4050, L506.1000, L502.0250, L501.9520 #### [facility] [address] [place], [address] White blood cell countOrdere d By: Micah Young on 09-26-2024 White blood cell count 0 SEEN /hpf 0-5 [facility] Urine Cultureon 09-24-2024 [facility] Copy of report sent to Infection Control Printer [id number] 09/24/24 1048 ASNIPES. Urine Culture Urine Culture ESBL Escherichia coli [place] Count >100,000 MARKER ESBL producing OrganismA MARKER ESBL producing OrganismA Amikacin Islt LOYD 2 S Ampicillin Islt LOYD >=32 Ampicillin+Sulbac Islt LOYD >=32 R Cefepime Islt LOYD 4 I Eravacycline Islt LOYD <=0.12 S cefTRIAXone Islt LOYD >=64 R Ciprofloxacin Islt LOYD 0.5 I B-Lactamase Extended Susc Islt POS Gentamicin Islt LOYD >=16 R Imipenem Islt LOYD <=0.25 S levoFLOXacin Islt LOYD 1 I Meropenem Islt LOYD <=0.25 S Nitrofurantoin Islt LOYD 128 R Pip+Tazo Islt LOYD <=4 S Tobramycin Islt LOYD 4 I TMP SMX Islt LOYD <=20 S Normal [facility] Comment on above: Performed By: #### L 500.4100, L506.0400, L500.4050, L506.1000, L502.0250, L501.9520 #### [facility] [place], [address] Bilirubin Test strip Ql (U)O rdered By: Allison Gomez on 09-21-2024 Bilirubin Ql (U) Negative Negative [facility] Ketones Test strip Ql (U)Ord ered By: Allison Gomez on 09-21-2024 Ketones Ql (U) Negative Negative [facility] Microscopic analysis of urin e for red blood cells (RBC)Ordered By: Allison Gomez on 09-21-2024 Microscopic analysis of urine for red blood cells (RBC) 0 SEEN /hpf 0-5 [facility] Mucus LM Ql (Urine sed)Order ed By: Allison Gomez on 09-21-2024 Mucus Ql (Urine sed) 0 SEEN /hpf [facility] Nitrite Test strip Ql (U)Ord ered By: Allison Gomez on 09-21-2024 Nitrite Ql (U) Positive High Negative [facility] Protein Test strip Ql (U)Ord ered By: Allison Gomez on 09-21-2024 Protein Ql (U) 15 mg/dl High Negative [facility] Squamous epithelial cells de tection in urine sediment by light microscopyOrdered By: Allison Gomez on 09-21-2024 Epithelial cells.squamous LM Ql (Urine sed) 0-5 SEEN /hpf 5-10 [facility] Urinalysis, Completeon 09-21 BACTERIA 2+ /hpf Normal None Seen [facility] Comment on above: Order Comment: ALEXANDER CTOR TO SPECIFY Performed By: #### L 500.4100, L506.0400, L500.4050, L506.1000, L502.0250, L501.9520 #### [facility] [address] [place], [address] EPI,SQUAMOUS 0-5 SEEN Normal 5-10 [facility] Comment on above: Order Comment: ALEXANDER CTOR TO SPECIFY Performed By: #### L 500.4100, L506.0400, L500.4050, L506.1000, L502.0250, L501.9520 #### [facility] [address] [place], [address] WBC 0-5 SEEN Normal 0-5 [facility] Comment on above: Order Comment: ALEXANDER CTOR TO SPECIFY Performed By: #### L 500.4100, L506.0400, L500.4050, L506.1000, L502.0250, L501.9520 #### [facility] [address] [place], [address] Mucus Ql (Urine sed) 0 SEEN Normal [facility] Comment on above: Order Comment: ALEXANDER CTOR TO SPECIFY Performed By: #### L 500.4100, L506.0400, L500.4050, L506.1000, L502.0250, L501.9520 #### [facility] [address] [place], [address] RBC 0 SEEN Normal 0-5 [facility] Comment on above: Order Comment: ALEXANDER CTOR TO SPECIFY Performed By: #### L 500.4100, L506.0400, L500.4050, L506.1000, L502.0250, L501.9520 #### [facility] [address] [place], [place], [id number] Urine clarityOrdered By: Brenda Gomez on 09-21-2024 Clarity (U) Clear Clear [facility] Urine color determinationOrd ered By: Allison Gomez on 09-21-2024 Color (U) Yellow Yellow [facility] Urine cultureOrdered By: Brenda Gomez on 09-21-2024 Bacteria identified Cx Nom (U) ESBL Escherichia coli Abnormal [facility] Urine glucose detectionOrder ed By: Allison Gomez on 09-21-2024 Glucose Ql (U) 50 mg/dl High Normal [facility] Urine leukocyte esterase det ection by dipstickOrdered By: Allison Gomez on 09-21-2024 Leukocyte esterase Test strip Ql (U) 25 /ul High Negative [facility] Urine pHOrdered By: Allison duffy on 09-21-2024 pH (U) 6.0 [pH] 5.0 - 8.0 [facility] Urine sediment bacteria coun t by microscopy (number/high power field)Ordered By: Allison Gomez on 09-21-2024 Bacteria LM.HPF (Urine sed) [#/Area] 2 /[HPF] None Seen [facility] Urine specific gravity measu rementOrdered By: Allison Gomez on 09-21-2024 Specific gravity (U) [Rel density] 1.015 1.002-1.03 0 [facility] Urine urobilinogen measureme ntOrdered By: Allison Gomez on 09-21-2024 Urobilinogen Ql (U) Normal mg/dl Normal [facility] White blood cell countOrdere d By: Allison Gomez on 09-21-2024 White blood cell count 0-5 SEEN /hpf 0-5 [facility] Breast imaging reportOrdered By: Heriberto Polanco on 09-18-[address] [facility] Services [address] [place], [place] [id number] SCRN MAMM (CAD)W/NAS BILAT MR#: [id number] Acct: [id number] Name: NIMO MCCLOUD Rep #: [id number] : 1950 F 73 From: Chaka Polanco MD PCP: Dr. Allison Gomez MD Status: REG CLI Study:SCRN MAMM (CAD)W/NAS BILAT Date of Exa m: 09/18/24 Exam# [id number] Ordering Dr: Allison Gomez MD EXAM: SCRN MAMM (CAD)W/NAS BILAT DATE: 09/18/2024 CLINICAL HISTORY: F, Age 73 y/o , BREAST CANCER SCREENING No family history. TECHNIQUE: SCRN MAMM (CAD)W/NAS BILAT COMPARISON: Prior exam(s) dated September 13, 2023.. FINDINGS: TISSUE DENSITY: There are scattered areas of fibroglandular density. Bilateral Breast Mammographic Findings: No significant masses, calcifications or other abnormalities are identified. Stable asymmetry of breast tissue were more breast tissue is seen in the retroareolar region of the right breast as compared to theleft side. There has been no change. No suspicious masses, areas of developing architectural distortion, or suspicious calcifications. There has been no significant interval change. BI/SCRN MAMM (CAD)W/NAS BILAT IMPRESSION: Stable examination OVERALL FINAL ASSESSMENT BI-RADS 2: BENIGN RECOMMEND ANNUAL MAMMOGRAPHIC SCREENING. RECOMMENDATION: Routine annual follow-up in 1 Year A letter with findings and recommendations will be mailed to the patient. Reading Location: [place] [address] CC: Dr. Allison Gomez MD ~ Chief Administrative Officer: Signed [facility] SCRN MAMM (CAD)W/NAS BILATo n 09-18-2024 SCRN MAMM (CAD)W/NAS BILAT [facility] Imaging Services [address] [place] [address] SCRN MAMM (CAD)W/NAS BILAT MR#: [id number] Acct: [id number] Name: NIMO MCCLOUD Rep #: [id number] : 1950 F 73 From: Heriberto al MD PCP: Dr. Allison Gomez MD Status: REG CLI Study: SCRN MAMM (CAD)W/NAS BILAT Date of Exam: 10/06 Exam# [id number] Ordering Dr: Allison Gomez MD EXAM: SCRN MAMM (CAD)W/NAS BILAT DATE: 09/18/2024 CLINICAL HISTORY: F, Age 73 y/o , BREAST CANCER SCREENING No family history. TECHNIQUE: SCRN MAMM (CAD)W/NAS BILAT COMPARISON: Prior exam(s) dated September 13, 2023.. FINDINGS: TISSUE DENSITY: There are scattered areas of fibroglandular density. Bilateral Breast Mammographic Findings: No significant masses, calcifications or other abnormalities are identified. Stable asymmetry of breast tissue were more breast tissue is seen in the retroareolar region of the right breast as compared to the left side. There has been no change. No suspicious masses, areas of developing architectural distortion, or suspicious calcifications. There has been no significant interval change. BI/SCRN MAMM (CAD)W/NAS BILAT IMPRESSION: Stable examination OVERALL FINAL ASSESSMENT BI-RADS 2: BENIGN RECOMMEND ANNUAL MAMMOGRAPHIC SCREENING. RECOMMENDATION: Routine annual follow-up in 1 Year A letter with findings and recommendations will be mailed to the patient. Reading Location: [place] [address] CC: Dr. Allison Gomez MD Chief Administrative Officer: Signed Normal [facility] Protein Electroph, Son 08-21 Albumin [Mass/Vol] 3.7 g/dL Normal 2.9-4.4 [facility] Comment on above: Performed By: #### L 500.4100, L506.0400, L500.4050, L506.1000, L502.0250, L501.9520 #### [facility] [address] [place], [address] Albumin/Globulin [Mass ratio] 1.3 {ratio} Normal 0.7-1.7 [facility] Comment on above: Performed By: #### L 500.4100, L506.0400, L500.4050, L506.1000, L502.0250, L501.9520 #### [facility] [address] [place], [address] ALPHA-1 GLOBUL 0.2 g/dL Normal 0.0-0.4 [facility] Comment on above: Performed By: #### L 500.4100, L506.0400, L500.4050, L506.1000, L502.0250, L501.9520 #### [facility] [address] [place], [address] ALPHA-2 GLOBUL 0.9 g/dL Normal 0.4-1.0 [facility] Comment on above: Performed By: #### L 500.4100, L506.0400, L500.4050, L506.1000, L502.0250, L501.9520 #### [facility] [address] [place], [address] BETA GLOBULIN 1.1 g/dL Normal 0.7-1.3 [facility] Comment on above: Performed By: #### L 500.4100, L506.0400, L500.4050, L506.1000, L502.0250, L501.9520 #### [facility] [address] [place], [address] GAMMA GLOBULIN 0.8 g/dL Normal 0.4-1.8 [facility] Comment on above: Performed By: #### L 500.4100, L506.0400, L500.4050, L506.1000, L502.0250, L501.9520 #### [facility] [address] [place], [address] Globulin (S) [Mass/Vol] 2.9 g/dL Normal 2.2-3.9 [facility] Comment on above: Performed By: #### L 500.4100, L506.0400, L500.4050, L506.1000, L502.0250, L501.9520 #### [facility] [address] [place], [place], [id number] INTERPRETATION Comment Normal . [facility] Comment on above: Result Comment: Prot ein electrophoresis scan will follow via computer, mail, or offset press assistant delivery. Performed By: #### L 500.4100, L506.0400, L500.4050, L506.1000, L502.0250, L501.9520 #### [facility] [address] [place], [address] M-SPIKE Not Observed Normal Not Observed [facility] Comment on above: Performed By: #### L 500.4100, L506.0400, L500.4050, L506.1000, L502.0250, L501.9520 #### [facility] [address] [place], [place], [id number] NOTE: Comment Normal . [facility] Comment on above: Result Comment: The SPE pattern appears unremarkable. Evidence of monoclonal protein is not apparent. Performed at: [address] [id number] Hat Lining Paster: Ozzy Aguilar PhD, Phone: [phone] Performed By: #### L 500.4100, L506.0400, L500.4050, L506.1000, L502.0250, L501.9520 #### [facility] [address] [place], [address] Protein [Mass/Vol] 6.6 g/dL Normal 6.0-8.5 [facility] Comment on above: Performed By: #### L 500.4100, L506.0400, L500.4050, L506.1000, L502.0250, L501.9520 #### [facility] [address] [place], [place], [id number] Absolute lymphocyte countOrd ered By: Carroll Mccormick on 08-17-2024 Lymphocytes Auto (Unsp spec) [#/Vol] 2.41 10*3/uL 0.83-4.51 [facility] Absolute neutrophil countOrd ered By: Carroll Mccormick on 08-17-2024 Neutrophils (Bld) [#/Vol] 5.3 10*3/uL 2.0-7.7 [facility] Albumin Elph [Mass/Vol]Order ed By: Carroll Mccormick on 08-17-2024 Albumin [Mass/Vol] 3.7 g/dL 2.9-4.4 [facility] Automated lymphocyte count a s percentage of total leukocytesOrdered By: Carroll Mccormick on 08-17-2024 Lymphocytes/100 WBC Auto (Unsp spec) 28.0 % 19-41 [facility] Basophil percentageOrdered B y: Carroll Mccormick on 08-17-2024 Basophils/100 WBC (Bld) 0.5 % 0-1 [facility] CBC W/Diff, Automatedon Absolute Lymph 2.41 X10 3/uL Normal 0.83-4.51 [facility] Comment on above: Performed By: #### L 500.4100, L506.0400, L500.4050, L506.1000, L502.0250, L501.9520 #### [facility] [address] [place], [address] Absolute Neut 5.3 X10 3/uL Normal 2.0-7.7 [facility] Comment on above: Performed By: #### L 500.4100, L506.0400, L500.4050, L506.1000, L502.0250, L501.9520 #### [facility] [address] [place], [address] Basophils/100 WBC (Bld) 0.5 % Normal 0-1 [facility] Comment on above: Performed By: #### L 500.4100, L506.0400, L500.4050, L506.1000, L502.0250, L501.9520 #### [facility] [address] [place], [address] Eosinophils/100 WBC (Bld) 2.0 % Normal 0-5 [facility] Comment on above: Performed By: #### L 500.4100, L506.0400, L500.4050, L506.1000, L502.0250, L501.9520 #### [facility] [address] [place], [address] Erythrocyte distribution width (RBC) [Ratio] 15.6 % High 11.6-14.6 [facility] Comment on above: Performed By: #### L 500.4100, L506.0400, L500.4050, L506.1000, L502.0250, L501.9520 #### [facility] [address] [place], [address] Hematocrit (Bld) [Volume fraction] 40.9 % Normal 37-47 [facility] Comment on above: Performed By: #### L 500.4100, L506.0400, L500.4050, L506.1000, L502.0250, L501.9520 #### [facility] [address] [place], [address] Hemoglobin (Bld) [Mass/Vol] 12.8 g/dL Normal 12.0-15.0 [facility] Comment on above: Performed By: #### L 500.4100, L506.0400, L500.4050, L506.1000, L502.0250, L501.9520 #### [facility] [address] [place], [address] IG% 0.300 Normal 0.0-0.9 [facility] Comment on above: Result Comment: IG% - Immature Granulocytes (promyelocytes, myelocytes and metamyelocytes) > 1% indicates that a LEFT SHIFT is Present. Performed By: #### L 500.4100, L506.0400, L500.4050, L506.1000, L502.0250, L501.9520 #### [facility] [address] [place], [address] Lymphocytes/100 WBC (Bld) 28.0 % Normal 19-41 [facility] Comment on above: Performed By: #### L 500.4100, L506.0400, L500.4050, L506.1000, L502.0250, L501.9520 #### [facility] [address] [place], [address] MCH (RBC) [Entitic mass] 26.0 pg Low 27.0-32.0 [facility] Comment on above: Performed By: #### L 500.4100, L506.0400, L500.4050, L506.1000, L502.0250, L501.9520 #### [facility] [address] [place], [address] MCHC (RBC) [Mass/Vol] 31.3 g/dL Low 32-36 [facility] Comment on above: Performed By: #### L 500.4100, L506.0400, L500.4050, L506.1000, L502.0250, L501.9520 #### [facility] [address] [place], [address] MCV (RBC) [Entitic vol] 83.0 fL Normal 81-99 [facility] Comment on above: Performed By: #### L 500.4100, L506.0400, L500.4050, L506.1000, L502.0250, L501.9520 #### [facility] [address] [place], [address] Monocytes/100 WBC (Bld) 7.3 % Normal 0-10 [facility] Comment on above: Performed By: #### L 500.4100, L506.0400, L500.4050, L506.1000, L502.0250, L501.9520 #### [facility] [address] [place], [address] Neutrophils/100 WBC (Bld) 61.9 % Normal 47-70 [facility] Comment on above: Performed By: #### L 500.4100, L506.0400, L500.4050, L506.1000, L502.0250, L501.9520 #### [facility] [address] [place], [address] Nucleated RBC (Bld) [#/Vol] 0 10*3/uL Normal 0-5 [facility] Comment on above: Performed By: #### L 500.4100, L506.0400, L500.4050, L506.1000, L502.0250, L501.9520 #### [facility] [address] [place], [address] Platelet mean volume (Bld) [Entitic vol] 10.3 fL Normal 6.2-12.0 [facility] Comment on above: Performed By: #### L 500.4100, L506.0400, L500.4050, L506.1000, L502.0250, L501.9520 #### [facility] [address] [place], [address] Platelets (Bld) [#/Vol] 255 10*3/uL Normal 150-450 [facility] Comment on above: Performed By: #### L 500.4100, L506.0400, L500.4050, L506.1000, L502.0250, L501.9520 #### [facility] [address] [place], [address] RBC (Bld) [#/Vol] 4.93 10*6/uL Normal 4.2-5.4 [facility] Comment on above: Performed By: #### L 500.4100, L506.0400, L500.4050, L506.1000, L502.0250, L501.9520 #### [facility] [address] [place], [address] RDW SD 46.6 fl High 35.1-43.9 [facility] Comment on above: Performed By: #### L 500.4100, L506.0400, L500.4050, L506.1000, L502.0250, L501.9520 #### [facility] [address] [place], [address] WBC (Bld) [#/Vol] 8.6 10*3/uL Normal 4.4-11.0 [facility] Comment on above: Performed By: #### L 500.4100, L506.0400, L500.4050, L506.1000, L502.0250, L501.9520 #### [facility] [address] [place], [address] CRPon 08-17-2024 C-REACTIVE PROT 5.12 mg/L High 0.0-3.0 [facility] Comment on above: Performed By: #### L 500.4100, L506.0400, L500.4050, L506.1000, L502.0250, L501.9520 #### [facility] [address], [address] Eosinophil percentageOrdered By: Carroll Mccormick on 08-17-2024 Eosinophils/100 WBC (Bld) 2.0 % 0-5 [facility] Erythrocyte Sed Rateon 08-17 SED RATE 21 mm/hr Normal 0-30 [facility] Comment on above: Performed By: #### L 500.4100, L506.0400, L500.4050, L506.1000, L502.0250, L501.9520 #### [facility] [address] [place], [address] Erythrocyte distribution wid th ratioOrdered By: Carroll Mccormick on 08-17-2024 Erythrocyte distribution width (RBC) [Ratio] 15.6 % High 11.6-14.6 [facility] Erythrocyte distribution wid th standard deviationOrdered By: Carroll Mccormick on 08-17-2024 Erythrocyte distribution width (RBC) [Ratio] 46.6 fl High 35.1-43.9 [facility] Erythrocyte sedimentation ra teOrdered By: Carroll Mccormick on 08-17-2024 ESR (Bld) [Velocity] 21 mm/h 0-30 [facility] Hematocrit Auto (Bld) [Volum e fraction]Ordered By: Carroll Mccormick on 08-17-2024 Hematocrit (Bld) [Volume fraction] 40.9 % 37-47 [facility] Hemoglobin measurementOrdere d By: Carroll Mccormick on 08-17-2024 Hemoglobin (Bld) [Mass/Vol] 12.8 g/dL 12.0-15.0 [facility] Immature granulocytes/100 WB C Auto (Bld)Ordered By: Carroll Mccormick on 08-17-2024 Immature granulocytes/100 WBC (Bld) 0.300 % 0.0-0.9 [facility] Comment on above: IG% - Immature Granu locytes (promyelocytes, myelocytes and metamyelocytes) > 1% indicates that a LEFT SHIFT is Present. MCV (mean corpuscular volume ) determinationOrdered By: Carroll Mccormick on 08-17-2024 MCV (RBC) [Entitic vol] 83.0 fL 81-99 [facility] Mean corpuscular hemoglobin (MCH) determinationOrdered By: Carroll Mccormick on 08-17-2024 MCH (RBC) [Entitic mass] 26.0 pg Low 27.0-32.0 [facility] Mean corpuscular hemoglobin concentration (MCHC) determinationOrdered By: Carroll Mccormick on 08-17-2024 MCHC (RBC) [Mass/Vol] 31.3 g/dL Low 32-36 [facility] Mean platelet volume determi nationOrdered By: Carroll Mccormick on 08-17-2024 Platelet mean volume (Bld) [Entitic vol] 10.3 fL 6.2-12.0 [facility] Monocyte percentageOrdered B y: Carroll Mccormick on 08-17-2024 Monocytes/100 WBC (Bld) 7.3 % 0-10 [facility] Neutrophil percentageOrdered By: Carroll Mccormick on 08-17-2024 Neutrophils/100 WBC (Bld) 61.9 % 47-70 [facility] No Panel InformationOrdered By: Carroll Mccormick on 08-17-2024 Addendum Document Comment . [facility] Comment on above: The SPE pattern appe ars unremarkable. Evidence ofmonoclonal protein is not apparent.Performed at: - [address] [id number] Director: Ozzy Aguilar PhD, Phone: [phone] Nucleated red blood cell per centageOrdered By: Carroll Mccormick on 08-17-2024 Nucleated RBC/100 WBC (Bld) [Ratio] 0 % 0-5 [facility] Platelet countOrdered By: Kendra Mccormick on 08-17-2024 Platelets (Bld) [#/Vol] 255 10*3/uL 150-450 [facility] Protein Fractions Elph [Inte rp]Ordered By: Carroll Mccormick on 08-17-2024 Protein Fractions [Interp] Comment . [facility] Comment on above: Protein electrophore sis scan will follow via computer,mail, or offset press assistant delivery. RBC Auto (Bld) [#/Vol]Ordere d By: Carroll Mccormick on 08-17-2024 RBC (Bld) [#/Vol] 4.93 10*6/uL 4.2-5.4 [facility] Serum albumin to globulin ra keyur by protein electrophoresisOrdered By: Carroll Mccormick on 08-17-2024 Albumin/Globulin Elph [Mass ratio] 1.3 0.7-1.7 [facility] Serum globulin measurement ( mass/volume)Ordered By: Carroll Mccormick on 08-17-2024 Globulin (S) [Mass/Vol] 2.9 g/dL 2.2-3.9 [facility] Serum or plasma C reactive p rotein measurement (mass/volume)Ordered By: Carroll Mccormick on 08-17-2024 CRP [Mass/Vol] 5.12 mg/L High 0.0-3.0 [facility] Serum or plasma beta globuli n measurement by electrophoresis (mass/volume)Ordered By: Carroll Mccormick on 08-17-2024 Beta globulin Elph [Mass/Vol] 1.1 g/dL 0.7-1.3 [facility] Serum or plasma protein bernardino urement (mass/volume)Ordered By: Carroll Mccormick on 08-17-2024 Protein [Mass/Vol] 6.6 g/dL 6.0-8.5 [facility] Serum or plasma protein mono clonal measurement by electrophoresis (mass/volume)Ordered By: Carroll Mccormick on 08-17-2024 Protein.monoclonal Elph [Mass/Vol] Not Observed g/dL Not Observed [facility] White blood cell (WBC) count Ordered By: Carroll Mccormick on 08-17-2024 WBC (Bld) [#/Vol] 8.6 10*3/uL 4.4-11.0 [facility] NCS and/or EMG Patienton NCS and/or EMG Patient [facility] Pulmonary Services/Neurology [address] [place] [address] MR#: [id number] Acct: [id number] Name: NIMO MCCLOUD YESI Rep #: [id number] : 1950 73 From: Mary Alice Palbo MD Referring Dr: Jad Joe DPM Status: REG CL I Location: PSN Date: 07/19/24 Sex: F C NCS and/or EMG Patient Report Ordering Doctor: Jad Joe DATE OF SERVICE: 07/19/24 Presents with complaints of sharp shooting pains in the left lower limb as well as numbness and tingling in both feet. Electrodiagnostic findings: Left peroneal motor nerve demonstrates prolonged latency with normal amplitude and reduced conduction velocity. Right peroneal motor nerve demonstrates normal distal latency and amplitude with reduced conduction velocity. Tibial motor response demonstrates prolonged latency bilaterally with reduced amplitude and conduction velocity. Prolonged left sural latency is noted prolonged superficial peroneal latency bilaterally. H reflex is within normal limits. F waves are prolonged bilaterally. Needle EMG testing was performed the lower limbs. All muscles tested showed no evidence of denervation with normal motor unit potentials. Electrodiagnostic impression: This an abnormal study in the lower limbs. 1. 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 2. No electrodiagnostic evidence is noted for lumbosacral radiculopathy. [facility] Neurology Neurology Interp Codes: 63721-66 Musc test done w/n test comp (interp) (2) and 24962-93 Nrv cndj test 9-10 studies (inter) 07/19/24 1501 Date Mary Alice Pablo MD CC: DPM Dr. Jad Joe; Dr. Mary Alice Pablo MD; Dr. Allison Gomez MD Date Dictated: 07/19/241455 Date Transcribed: 07/19/241455 Chief Administrative Officer: AA Signed Normal [facility] Protein C, Functionalon 05 PROTEIN C,FUNC 135 Normal 73-180 [facility] Comment on above: Result Comment: Perf ormed at: - [facility] [id number] Hat Lining Paster: Taylor Snider MD, Phone: [phone] Performed By: #### L 500.4100, L506.0400, L500.4050, L506.1000, L502.0250, L501.9520 #### [facility] Laboratory [address] [place], [place], [id number] Absolute lymphocyte countOrd ered By: Carroll Mccormick on 07-11-2024 Lymphocytes Auto (Unsp spec) [#/Vol] 2.03 10*3/uL 0.83-4.51 [facility] Absolute neutrophil countOrd ered By: Carroll Mccormick on 07-11-2024 Neutrophils (Bld) [#/Vol] 4.5 10*3/uL 2.0-7.7 [facility] Automated lymphocyte count a s percentage of total leukocytesOrdered By: Carroll Mccormick on 07-11-2024 Lymphocytes/100 WBC Auto (Unsp spec) 26.4 % 19-41 [facility] Basophil percentageOrdered B y: Carroll Mccormick on 07-11-2024 Basophils/100 WBC (Bld) 0.5 % 0-1 [facility] CBC W/Diff, Automatedon -5 Absolute Lymph 2.03 X10 3/uL Normal 0.83-4.51 [facility] Comment on above: Performed By: #### L 500.4100, L506.0400, L500.4050, L506.1000, L502.0250, L501.9520 #### [facility] Laboratory [address] [place], [address] Absolute Neut 4.5 X10 3/uL Normal 2.0-7.7 [facility] Comment on above: Performed By: #### L 500.4100, L506.0400, L500.4050, L506.1000, L502.0250, L501.9520 #### [facility] Laboratory [address] [place], [address] Basophils/100 WBC (Bld) 0.5 % Normal 0-1 [facility] Comment on above: Performed By: #### L 500.4100, L506.0400, L500.4050, L506.1000, L502.0250, L501.9520 #### [facility] Laboratory [address] [place], [address] Eosinophils/100 WBC (Bld) 1.8 % Normal 0-5 [facility] Comment on above: Performed By: #### L 500.4100, L506.0400, L500.4050, L506.1000, L502.0250, L501.9520 #### [facility] Laboratory [address] [place], [address] Erythrocyte distribution width (RBC) [Ratio] 15.4 % High 11.6-14.6 [facility] Comment on above: Performed By: #### L 500.4100, L506.0400, L500.4050, L506.1000, L502.0250, L501.9520 #### [facility] Laboratory [address] [place], [address] Hematocrit (Bld) [Volume fraction] 40.3 % Normal 37-47 [facility] Comment on above: Performed By: #### L 500.4100, L506.0400, L500.4050, L506.1000, L502.0250, L501.9520 #### [facility] Laboratory [address] [place], [address] Hemoglobin (Bld) [Mass/Vol] 12.8 g/dL Normal 12.0-15.0 [facility] Comment on above: Performed By: #### L 500.4100, L506.0400, L500.4050, L506.1000, L502.0250, L501.9520 #### [facility] Laboratory [address] [place], [address] IG% 0.400 Normal 0.0-0.9 [facility] Comment on above: Result Comment: IG% - Immature Granulocytes (promyelocytes, myelocytes and metamyelocytes) > 1% indicates that a LEFT SHIFT is Present. Performed By: #### L 500.4100, L506.0400, L500.4050, L506.1000, L502.0250, L501.9520 #### [facility] Laboratory [address] [place], [address] Lymphocytes/100 WBC (Bld) 26.4 % Normal 19-41 [facility] Comment on above: Performed By: #### L 500.4100, L506.0400, L500.4050, L506.1000, L502.0250, L501.9520 #### [facility] Laboratory [address] [place], [address] MCH (RBC) [Entitic mass] 26.2 pg Low 27.0-32.0 [facility] Comment on above: Performed By: #### L 500.4100, L506.0400, L500.4050, L506.1000, L502.0250, L501.9520 #### [facility] Laboratory [address] [place], [address] MCHC (RBC) [Mass/Vol] 31.8 g/dL Low 32-36 [facility] Comment on above: Performed By: #### L 500.4100, L506.0400, L500.4050, L506.1000, L502.0250, L501.9520 #### [facility] Laboratory [address] [place], [address] MCV (RBC) [Entitic vol] 82.6 fL Normal 81-99 [facility] Comment on above: Performed By: #### L 500.4100, L506.0400, L500.4050, L506.1000, L502.0250, L501.9520 #### [facility] Laboratory [address] [place], [address] Monocytes/100 WBC (Bld) 11.8 % High 0-10 [facility] Comment on above: Performed By: #### L 500.4100, L506.0400, L500.4050, L506.1000, L502.0250, L501.9520 #### [facility] Laboratory [address] [place], [address] Neutrophils/100 WBC (Bld) 59.1 % Normal 47-70 [facility] Comment on above: Performed By: #### L 500.4100, L506.0400, L500.4050, L506.1000, L502.0250, L501.9520 #### [facility] Laboratory [address] [place], [address] Nucleated RBC (Bld) [#/Vol] 0 10*3/uL Normal 0-5 [facility] Comment on above: Performed By: #### L 500.4100, L506.0400, L500.4050, L506.1000, L502.0250, L501.9520 #### [facility] Laboratory [address] [place], [address] Platelet mean volume (Bld) [Entitic vol] 10.7 fL Normal 6.2-12.0 [facility] Comment on above: Performed By: #### L 500.4100, L506.0400, L500.4050, L506.1000, L502.0250, L501.9520 #### [facility] Laboratory [address] [place], [address] Platelets (Bld) [#/Vol] 229 10*3/uL Normal 150-450 [facility] Comment on above: Performed By: #### L 500.4100, L506.0400, L500.4050, L506.1000, L502.0250, L501.9520 #### [facility] Laboratory [address] [place], [address] RBC (Bld) [#/Vol] 4.88 10*6/uL Normal 4.2-5.4 [facility] Comment on above: Performed By: #### L 500.4100, L506.0400, L500.4050, L506.1000, L502.0250, L501.9520 #### [facility] Laboratory [address] [place], [address] RDW SD 46.1 fl High 35.1-43.9 [facility] Comment on above: Performed By: #### L 500.4100, L506.0400, L500.4050, L506.1000, L502.0250, L501.9520 #### [facility] Laboratory [address] [place], [address] WBC (Bld) [#/Vol] 7.7 10*3/uL Normal 4.4-11.0 [facility] Comment on above: Performed By: #### L 500.4100, L506.0400, L500.4050, L506.1000, L502.0250, L501.9520 #### [facility] Laboratory [address] [place], [place], [id number] CRPon 07-11-2024 C-REACTIVE PROT 5.13 mg/L High 0.0-3.0 [facility] Comment on above: Performed By: #### L 500.4100, L506.0400, L500.4050, L506.1000, L502.0250, L501.9520 #### [facility] Laboratory [address] [place], [place], [id number] Eosinophil percentageOrdered By: Carroll Mccormick on 07-11-2024 Eosinophils/100 WBC (Bld) 1.8 % 0-5 [facility] Erythrocyte Sed Rateon 07-11 SED RATE 37 mm/hr High 0-30 [facility] Comment on above: Performed By: #### L 500.4100, L506.0400, L500.4050, L506.1000, L502.0250, L501.9520 #### [facility] Laboratory [address] [place], [place], [id number] Erythrocyte distribution wid th ratioOrdered By: Carroll Mccormick on 07-11-2024 Erythrocyte distribution width (RBC) [Ratio] 15.4 % High 11.6-14.6 [facility] Erythrocyte distribution wid th standard deviationOrdered By: Carroll Mccormick on 07-11-2024 Erythrocyte distribution width (RBC) [Ratio] 46.1 fl High 35.1-43.9 [facility] Erythrocyte sedimentation ra teOrdered By: Carroll Mccormick on 07-11-2024 ESR (Bld) [Velocity] 37 mm/h High 0-30 [facility] Functional protein C measure mentOrdered By: Carroll Mccormick on 07-11-2024 Protein C actual/normal Chromogenic method (PPP) [Rel catalytic activity/Vol] 135 % 73-180 [facility] Comment on above: Performed at: [address] [id number] Director: Taylor Snider MD, Phone: [phone] Hematocrit Auto (Bld) [Volum e fraction]Ordered By: Carroll Mccormick on 07-11-2024 Hematocrit (Bld) [Volume fraction] 40.3 % 37-47 [facility] Hemoglobin measurementOrdere d By: Carroll Mccormick on 07-11-2024 Hemoglobin (Bld) [Mass/Vol] 12.8 g/dL 12.0-15.0 [facility] Immature granulocytes/100 WB C Auto (Bld)Ordered By: Carroll Mccormick on 07-11-2024 Immature granulocytes/100 WBC (Bld) 0.400 % 0.0-0.9 [facility] Comment on above: IG% - Immature Granu locytes (promyelocytes, myelocytes and metamyelocytes) > 1% indicates that a LEFT SHIFT is Present. MCV (mean corpuscular volume ) determinationOrdered By: Carroll Mccormick on 07-11-2024 MCV (RBC) [Entitic vol] 82.6 fL 81-99 [facility] Mean corpuscular hemoglobin (MCH) determinationOrdered By: Carroll Mccormick on 07-11-2024 MCH (RBC) [Entitic mass] 26.2 pg Low 27.0-32.0 [facility] Mean corpuscular hemoglobin concentration (MCHC) determinationOrdered By: Carroll Mccormick on 07-11-2024 MCHC (RBC) [Mass/Vol] 31.8 g/dL Low 32-36 [facility] Mean platelet volume determi nationOrdered By: Carroll Mccormick on 07-11-2024 Platelet mean volume (Bld) [Entitic vol] 10.7 fL 6.2-12.0 [facility] Monocyte percentageOrdered B y: Carroll Mccormick on 07-11-2024 Monocytes/100 WBC (Bld) 11.8 % High 0-10 [facility] Neutrophil percentageOrdered By: Carroll Mccormick on 07-11-2024 Neutrophils/100 WBC (Bld) 59.1 % 47-70 [facility] Nucleated red blood cell per centageOrdered By: Carroll Mccormick on 07-11-2024 Nucleated RBC/100 WBC (Bld) [Ratio] 0 % 0-5 [facility] Platelet countOrdered By: Kendra Mccormick on 07-11-2024 Platelets (Bld) [#/Vol] 229 10*3/uL 150-450 [facility] RBC Auto (Bld) [#/Vol]Ordere d By: Carroll Christiangrave on 07-11-2024 RBC (Bld) [#/Vol] 4.88 10*6/uL 4.2-5.4 [facility] Serum or plasma C reactive p rotein measurement (mass/volume)Ordered By: Carroll Mccormick on 07-11-2024 CRP [Mass/Vol] 5.13 mg/L High 0.0-3.0 [facility] White blood cell (WBC) count Ordered By: Carroll Mccormick on 07-11-2024 WBC (Bld) [#/Vol] 7.7 10*3/uL 4.4-11.0 [facility] Protein Electroph, Son 06-28 Albumin [Mass/Vol] 3.2 g/dL Normal 2.9-4.4 [facility] Comment on above: Performed By: #### L 500.4100, L506.0400, L500.4050, L506.1000, L502.0250, L501.9520 #### [facility] Laboratory [address] [place], [address] Albumin/Globulin [Mass ratio] 1.1 {ratio} Normal 0.7-1.7 [facility] Comment on above: Performed By: #### L 500.4100, L506.0400, L500.4050, L506.1000, L502.0250, L501.9520 #### [facility] Laboratory [address] [place], [address] ALPHA-1 GLOBUL 0.2 g/dL Normal 0.0-0.4 [facility] Comment on above: Performed By: #### L 500.4100, L506.0400, L500.4050, L506.1000, L502.0250, L501.9520 #### [facility] Laboratory [address] [place], [address] ALPHA-2 GLOBUL 0.9 g/dL Normal 0.4-1.0 [facility] Comment on above: Performed By: #### L 500.4100, L506.0400, L500.4050, L506.1000, L502.0250, L501.9520 #### [facility] Laboratory [address] [place], [address] BETA GLOBULIN 1.0 g/dL Normal 0.7-1.3 [facility] Comment on above: Performed By: #### L 500.4100, L506.0400, L500.4050, L506.1000, L502.0250, L501.9520 #### [facility] Laboratory [address] [place], [address] GAMMA GLOBULIN 0.8 g/dL Normal 0.4-1.8 [facility] Comment on above: Performed By: #### L 500.4100, L506.0400, L500.4050, L506.1000, L502.0250, L501.9520 #### [facility] Laboratory [address] [place], [address] Globulin (S) [Mass/Vol] 2.9 g/dL Normal 2.2-3.9 [facility] Comment on above: Performed By: #### L 500.4100, L506.0400, L500.4050, L506.1000, L502.0250, L501.9520 #### [facility] Laboratory [address] [place], [address] INTERPRETATION Comment Normal . [facility] Comment on above: Result Comment: Prot ein electrophoresis scan will follow via computer, mail, or offset press assistant delivery. Performed By: #### L 500.4100, L506.0400, L500.4050, L506.1000, L502.0250, L501.9520 #### [facility] Laboratory [address] [place], [address] M-SPIKE Not Observed Normal Not Observed [facility] Comment on above: Performed By: #### L 500.4100, L506.0400, L500.4050, L506.1000, L502.0250, L501.9520 #### [facility] Laboratory [address] [place], [address] NOTE: Comment Normal . [facility] Comment on above: Result Comment: The SPE pattern appears unremarkable. Evidence of monoclonal protein is not apparent. Performed at: [address] [id number] Hat Lining Paster: Ozzy Aguilar PhD, Phone: [phone] Performed By: #### L 500.4100, L506.0400, L500.4050, L506.1000, L502.0250, L501.9520 #### [facility] Laboratory [address] [place], [place], [id number] [phone] Protein [Mass/Vol] 6.1 g/dL Normal 6.0-8.5 [facility] Comment on above: Performed By: #### L 500.4100, L506.0400, L500.4050, L506.1000, L502.0250, L501.9520 #### [facility] Laboratory [address] [place], [place], [id number] Absolute lymphocyte countOrd ered By: Carroll Mccormick on 06-26-2024 Lymphocytes Auto (Unsp spec) [#/Vol] 2.06 10*3/uL 0.83-4.51 [facility] Absolute neutrophil countOrd ered By: Carroll Mccormick on 06-26-2024 Neutrophils (Bld) [#/Vol] 5.7 10*3/uL 2.0-7.7 [facility] Albumin Elph [Mass/Vol]Order ed By: Carroll Mccormick on 06-26-2024 Albumin [Mass/Vol] 3.2 g/dL 2.9-4.4 [facility] Automated lymphocyte count a s percentage of total leukocytesOrdered By: Carroll Mccormick on 06-26-2024 Lymphocytes/100 WBC Auto (Unsp spec) 23.5 % 19-41 [facility] Basophil percentageOrdered B y: Carroll Mccormick on 06-26-2024 Basophils/100 WBC (Bld) 0.6 % 0-1 [facility] CBC W/Diff, Automatedon 06-13 Absolute Lymph 2.06 X10 3/uL Normal 0.83-4.51 [facility] Comment on above: Performed By: #### L 400.0001, #### [facility] Laboratory [address] [place], [address] Absolute Neut 5.7 X10 3/uL Normal 2.0-7.7 [facility] Comment on above: Performed By: #### L 400.0001, #### [facility] Laboratory [address] [place], [address] Basophils/100 WBC (Bld) 0.6 % Normal 0-1 [facility] Comment on above: Performed By: #### L 400.0001, #### [facility] Laboratory [address] [place], [address] Eosinophils/100 WBC (Bld) 2.2 % Normal 0-5 [facility] Comment on above: Performed By: #### L 400.0001, #### [facility] Laboratory [address] [place], [address] Erythrocyte distribution width (RBC) [Ratio] 15.6 % High 11.6-14.6 [facility] Comment on above: Performed By: #### L 400.0001, .2199 #### [facility] Laboratory [address] [place], [address] Hematocrit (Bld) [Volume fraction] 40.4 % Normal 37-47 [facility] Comment on above: Performed By: #### L 400.0001, #### [facility] Laboratory [address] [place], [address] Hemoglobin (Bld) [Mass/Vol] 12.6 g/dL Normal 12.0-15.0 [facility] Comment on above: Performed By: #### L 400.0001, #### [facility] Laboratory [address] [place], [address] IG% 0.200 Normal 0.0-0.9 [facility] Comment on above: Result Comment: IG% - Immature Granulocytes (promyelocytes, myelocytes and metamyelocytes) > 1% indicates that a LEFT SHIFT is Present. Performed By: #### L 400.0001, #### [facility] Laboratory [address] [place], [address] Lymphocytes/100 WBC (Bld) 23.5 % Normal 19-41 [facility] Comment on above: Performed By: #### L 400.0001, #### [facility] Laboratory [address] [place], [address] MCH (RBC) [Entitic mass] 25.8 pg Low 27.0-32.0 [facility] Comment on above: Performed By: #### L 400.0001, #### [facility] Laboratory [address] [place], [address] MCHC (RBC) [Mass/Vol] 31.2 g/dL Low 32-36 [facility] Comment on above: Performed By: #### L 400.0001, #### [facility] Laboratory [address] [place], [address] MCV (RBC) [Entitic vol] 82.6 fL Normal 81-99 [facility] Comment on above: Performed By: #### L 400.0001, #### [facility] Laboratory [address] [place], [address] Monocytes/100 WBC (Bld) 8.5 % Normal 0-10 [facility] Comment on above: Performed By: #### L 400.0001, #### [facility] Laboratory [address] [place], [address] Neutrophils/100 WBC (Bld) 65.0 % Normal 47-70 [facility] Comment on above: Performed By: #### L 400.0001, #### [facility] Laboratory [address] [place], [address] Nucleated RBC (Bld) [#/Vol] 0 10*3/uL Normal 0-5 [facility] Comment on above: Performed By: #### L 400.0001, #### [facility] Laboratory [address] [place], [address] Platelet mean volume (Bld) [Entitic vol] 10.6 fL Normal 6.2-12.0 [facility] Comment on above: Performed By: #### L 400.0001, #### [facility] Laboratory [address] [place], [address] Platelets (Bld) [#/Vol] 231 10*3/uL Normal 150-450 [facility] Comment on above: Performed By: #### L 400.0001, #### [facility] [address] [place], [address] RBC (Bld) [#/Vol] 4.89 10*6/uL Normal 4.2-5.4 [facility] Comment on above: Performed By: #### L 400.0001, #### [facility] [address] [place], [address] RDW SD 47.2 fl High 35.1-43.9 [facility] Comment on above: Performed By: #### L 400.0001, #### [facility] [address] [place], [address] WBC (Bld) [#/Vol] 8.8 10*3/uL Normal 4.4-11.0 [facility] Comment on above: Performed By: #### L 400.0001, M100.0 #### [facility] [address] [place], [address] CRPon 06-26-2024 C-REACTIVE PROT 5.99 mg/L High 0.0-3.0 [facility] Comment on above: Performed By: #### L 400.0001, M100.2200 #### [facility] [address] [place], [address] CRP [Mass/Vol]Ordered By: Kendra Mccormick on 06-26-2024 C-Reactive Protein Extended Range 5.99 mg/L High 0.0-3.0 [facility] Eosinophil percentageOrdered By: Carroll Mccormick on 06-26-2024 Eosinophils/100 WBC (Bld) 2.2 % 0-5 [facility] Erythrocyte Sed Rateon 06-26 SED RATE 26 mm/hr Normal 0-30 [facility] Comment on above: Performed By: #### L 400.0001, M1.0 #### [facility] [address] [place], [address] Erythrocyte distribution wid th (RBC) [Ratio]Ordered By: Carroll Mccormick on 06-26-2024 Erythrocyte distribution width (RBC) [Entitic vol] 47.2 fL High 35.1-43.9 [facility] Erythrocyte distribution wid th ratioOrdered By: Carroll Mccormick on 06-26-2024 Erythrocyte distribution width (RBC) [Ratio] 15.6 % High 11.6-14.6 [facility] Erythrocyte distribution wid th standard deviationOrdered By: Carroll Mccormick on 06-26-2024 Erythrocyte distribution width (RBC) [Ratio] 47.2 fl High 35.1-43.9 [facility] Erythrocyte sedimentation ra teOrdered By: Carroll Mccormick on 06-26-2024 ESR (Bld) [Velocity] 26 mm/h 0-30 [facility] Hematocrit Auto (Bld) [Volum e fraction]Ordered By: Carroll Mccormick on 06-26-2024 Hematocrit (Bld) [Volume fraction] 40.4 % 37-47 [facility] Hemoglobin measurementOrdere d By: Carroll Mccormick on 06-26-2024 Hemoglobin (Bld) [Mass/Vol] 12.6 g/dL 12.0-15.0 [facility] Immature granulocytes/100 WB C Auto (Bld)Ordered By: Carroll Mccormick on 06-26-2024 Immature granulocytes/100 WBC (Bld) 0.200 % 0.0-0.9 [facility] Comment on above: IG% - Immature Granu locytes (promyelocytes, myelocytes and metamyelocytes) > 1% indicates that a LEFT SHIFT is Present. Lymphocytes Auto (Unsp spec) [#/Vol]Ordered By: Carroll Mccormick on 06-26-2024 Lymphocytes (Bld) [#/Vol] 2.06 10*3/uL 0.83-4.51 [facility] Lymphocytes/100 WBC Auto (Un sp spec)Ordered By: Carroll Mccormick on 06-26-2024 Lymphocytes/100 WBC (Bld) 23.5 % 19-41 [facility] MCV (mean corpuscular volume ) determinationOrdered By: Carroll Mccormick on 06-26-2024 MCV (RBC) [Entitic vol] 82.6 fL 81-99 [facility] Mean corpuscular hemoglobin (MCH) determinationOrdered By: Carroll Mccormick on 06-26-2024 MCH (RBC) [Entitic mass] 25.8 pg Low 27.0-32.0 [facility] Mean corpuscular hemoglobin concentration (MCHC) determinationOrdered By: Carroll Mccormick on 06-26-2024 MCHC (RBC) [Mass/Vol] 31.2 g/dL Low 32-36 [facility] Mean platelet volume determi nationOrdered By: Carroll Mccormick on 06-26-2024 Platelet mean volume (Bld) [Entitic vol] 10.6 fL 6.2-12.0 [facility] Monocyte percentageOrdered B y: Carroll Mccormick on 06-26-2024 Monocytes/100 WBC (Bld) 8.5 % 0-10 [facility] Neutrophil percentageOrdered By: Carroll Mccormick on 06-26-2024 Neutrophils/100 WBC (Bld) 65.0 % 47-70 [facility] No Panel InformationOrdered By: Carroll Mccormick on 06-26-2024 Addendum Document Comment . [facility] Comment on above: The SPE pattern appe ars unremarkable. Evidence ofmonoclonal protein is not apparent.Performed at: [facility] [id number] Director: Ozzy Aguilar PhD, Phone: [phone] Nucleated red blood cell per centageOrdered By: Carroll Mccormick on 06-26-2024 Nucleated RBC/100 WBC (Bld) [Ratio] 0 % 0-5 [facility] Platelet countOrdered By: Kendra Mccormick on 06-26-2024 Platelets (Bld) [#/Vol] 231 10*3/uL 150-450 [facility] Protein Fractions Elph [Inte rp]Ordered By: Carroll Mccormick on 06-26-2024 Protein Fractions [Interp] Comment . [facility] Comment on above: Protein electrophore sis scan will follow via computer,mail, or offset press assistant delivery. RBC Auto (Bld) [#/Vol]Ordere d By: Carroll Mccormick on 06-26-2024 RBC (Bld) [#/Vol] 4.89 10*6/uL 4.2-5.4 [facility] Serum albumin to globulin ra keyur by protein electrophoresisOrdered By: Carroll Mccormick on 06-26-2024 Albumin/Globulin Elph [Mass ratio] 1.1 0.7-1.7 [facility] Serum globulin measurement ( mass/volume)Ordered By: Carroll Mccormick on 06-26-2024 Globulin (S) [Mass/Vol] 2.9 g/dL 2.2-3.9 [facility] Serum or plasma C reactive p rotein measurement (mass/volume)Ordered By: Carroll Mccormick on 06-26-2024 CRP [Mass/Vol] 5.99 mg/L High 0.0-3.0 [facility] Serum or plasma beta globuli n measurement by electrophoresis (mass/volume)Ordered By: Carroll Mccormick on 06-26-2024 Beta globulin Elph [Mass/Vol] 1.0 g/dL 0.7-1.3 [facility] Serum or plasma protein bernardino urement (mass/volume)Ordered By: Carroll Mccormick on 06-26-2024 Protein [Mass/Vol] 6.1 g/dL 6.0-8.5 [facility] Serum or plasma protein mono clonal measurement by electrophoresis (mass/volume)Ordered By: Carroll Garciaave on 06-26-2024 Protein.monoclonal Elph [Mass/Vol] Not Observed g/dL Not Observed [facility] White blood cell (WBC) count Ordered By: Carroll Mccormick on 06-26-2024 WBC (Bld) [#/Vol] 8.8 10*3/uL 4.4-11.0 [facility] Endocrinology Visit Reporton 06-22-2024 Endocrinology Visit Report [facility] [address] [place] [address] OFFICE VISIT Date of Service: 06/22/24 MR#: [id number] Acct: [id number] Name: NIMO MCCLOUD YESI Rep #: [id number] : 1950 Provider: JUSTIN moncada Age/Sex: 73/F [place] [facility] [place]: Signed Intake Vital Signs 03/23/24 10:40 05/07/24 15:03 06/22/24 10:26 Height 5 ft 3 in 5 ft 3 in 5 ft 3 in Weight: 256 lb 8 oz BMI 45.4 BP 125/73 H Blood Pressure Location Rt brachial Position Sitting Pulse 65 Pulse Source Monitor Pulse Oximetry (%) 97 Oxygen Delivery Method room air Intake Visit Reasons: 3 M FU Chief Complaint: f/u diabetes Is patient in pain?: Yes Allergies ciprofloxacin (From Cipro) Allergy (Mild, Verified 06/22/24 10:29) Rash ondansetron HCl (From Zofran (as hydrochloride)) Allergy (Verified 06/22/24 10:29) Rash oxycodone HCl (From Percocet) Allergy (Verified 06/22/24 10:29) Rash Penicillins (PCN) Allergy (Verified 06/22/24 10:29) Other propoxyphene napsylate (From Darvocet-N 100) Allergy (Verified 06/22/24 10:29) Rash nickel Adverse Reaction (Intermediate, Verified 06/22/24 10:29) Rash Medications ???Medication ???Instructions ???Recorded ???Confirmed ???Type multivitamin 1 tab PO DAILY #90 tabs 02/16/22 0 06/22/24 Rx potassium citrate 99 mg capsule 99 mg PO DAILY #90 caps 02/16/22 0 06/22/24 Rx cyanocobalamin (vitamin B-12) 1 tab PO DAILY 06/03/22 06/22/24 H istory magnesium gluconate 12.5 mg 250 mg PO DAILY 06/03/22 06/22/24 History magnesium (250 mg) tablet lovastatin 20 mg tablet 20 mg PO QHS cholesterol #90 tabs 03/23/23 06/22/24 Rx omeprazole 20 mg capsule,delayed 20 mg PO DAILY GERD #90 caps 03/2306/22/24 Rx release ascorbate calcium (vitamin C) 500 500 mg PO DAILY 09/23/23 06/22/24 History mg tablet tirzepatide 15 mg/0.5 mL 15 mg (0.5 mL) subcut QWEEK #6 mL 02/07/24 06/22/24 Rx subcutaneous pen injector (Agustina) losartan 100 mg tablet 100 mg PO QDAY #30 tabs 03/23/24 0 06/22/24 Rx levothyroxine 200 mcg tablet 200 mcg PO .Mon-Sat #90 tabs 04/0606/22/24 Rx Lantus Solostar U-100 Insulin 100 50 unit (0.5 mL) subcut DAILY #45 04/10/24 06/22/24 Rx unit/mL (3 mL) subcutaneous pen mL (insulin glargine) blood-glucose sensor (FreeStyle #6 ea 04/10/24 06/22/24 Rx Ty 3 Plus Sensor device) insulin aspart 35 unit subcut TID #94.5 mL 06/22/24 Rx (niacinamide)(U-100) 100 unit/mL(3 mL) subcutaneous pen (Fiasp FlexTouch U-100 Insulin) famotidine 20 mg tablet (Pepcid) 20 mg PO BID 14 days #28 tabs 04/1606/22/24 Rx Have you fallen in the past year?: No PFSH Medical History Obesity Urinary urgency Wears glasses Wears dentures Alcohol use Arthritis Easy bruising Restless legs Dietary restriction History of diverticulitis Shortness of breath on exertion Chronic cough Leg cramps History of edema History of echocardiogram History of stress test History of colon polyps GERD (gastroesophageal reflux disease) BiPAP (biphasic positive airway pressure) dependence Pyelonephritis Non-smoker Low back pain ANISHA (obstructive sleep apnea) Asthma Diarrhea Diabetes Shoulder pain Hemorrhoids Kidney disease Cancer HTN (hypertension) Hyperlipidemia Surgical History History of laparoscopy History of oral surgery H/O: hysterectomy History of cholecystectomy History of colonoscopy ( 08/14/19) History of esophagogastroduodenoscopy (EGD) S/P colonoscopy S/P wrist surgery S/P hysterectomy Stone, kidney Status post laparoscopic cholecystectomy Family History Father Colon cancer Myocardial infarction Diabetes Hypertension Hyperlipemia Grandmother No problems noted. Mother Colon cancer Cancer Heart disease CVA (cerebral vascular accident) Diabetes Thyroid disorder Hypertension Myocardial infarction Hyperlipemia Brother Colon cancer Unknown Breast cancer 2 cousins Uncle Colon cancer Social History Smoking Status: Never smoker second hand exposure: No alcohol intake: current alcohol intake frequency: holidays/special occasions only substance use type: does not use caffeine: Yes what type of physical activity do you participate in: none frequency: does not exercise HPI HPI Chief Complaint: f/u diabetes Details: NIMO MCCLOUD, is a 73 F who presents to the office today for evaluation and management of diabetes and hypothyroid. A1C today is 7.3%, improved from 03/23/24 at 7.8%. She has gained 3 lbs since that time. Currently takin (more content not included)... Normal [facility] - Hematology and Cell countsOrdered By: Kandice Zambrano on 06-22-2024 HbA1c (Bld) [Mass fraction] 7.3 % High 4.2-6.3 [facility] No Panel InformationOrdered By: Kandiceaylin Zambrano on 06-22-2024 7.3 % High 4.2-6.3 [facility] Abdomen/Pelvis W IV Cont ONL Yon 05-07-2024 Abdomen/Pelvis W IV Cont ONLY [facility] Services [address] [place], [place] [address] Abdomen/Pelvis W IV Cont ONLY MR#: [id number] Acct: [id number] Name: NIMO MCCLOUD Rep #: [id number] : 1950 F 73 From: Wilton Tripathi MD PCP: Dr. Allison Gomez MD Status: REG ER Study: Abdomen/Pelvis W IV Cont ONLY Date of Exam: Exam# [id number] Ordering Dr: Annel Calvert PROCEDURE: ABDOMEN/PELVIS W IV CONT ONLY REASON FOR EXAM: Epigastric TECHNIQUE: Abdomen and pelvis CT with intravenous contrast. COMPARISON: 12/10/2022 FINDINGS: Lung bases: Coronary artery calcifications Liver: Diffuse fatty infiltration. Gallbladder: Surgically absent. Spleen: Normal size. Pancreas: Normal size without evidence of mass surrounding inflammation or ductal dilation. Adrenals: Unremarkable. Kidneys: Normal renal sizes. No hydronephrosis. Bladder: Unremarkable. Reproductive Organs: Prior hysterectomy. Adnexal regions are unremarkable. Bowel: Colonic diverticulosis without diverticulitis. Appendix: Normal. Lymph nodes: No suspicious lymph node enlargement. Vasculature: Mild diffuse atherosclerotic calcifications are noted. Peritoneum / Retroperitoneum: No ascites. No free air. Bones: Degenerative changes of the spine. CT/Abdomen/Pelvis W IV Cont ONLY IMPRESSION: 1. No acute CT abnormality in the abdomen and pelvis. 2. Hepatic steatosis. 3. Sigmoid diverticulosis with no evidence of diverticulitis One or more dose reduction techniques were used (e.g., Automated exposure control, adjustment of the mA and/or kV according to patient size, use of iterative reconstruction technique). Reading Location: [facility] CC: Dr. Allison Gomez MD; RENETTA Santamaria Chief Administrative Officer: Signed Normal [facility] Absolute lymphocyte countOrd ered By: Annel Calvert on 05-07-2024 Lymphocytes Auto (Unsp spec) [#/Vol] 2.34 10*3/uL 0.83-4.51 [facility] Absolute neutrophil countOrd ered By: Annel Calvert on 05-07-2024 Neutrophils (Bld) [#/Vol] 5.0 10*3/uL 2.0-7.7 [facility] Albumin to globulin ratioOrd ered By: Annel Calvert on 05-07-2024 Albumin/Globulin [Mass ratio] 0.8 {ratio} Low 0.9-2.4 [facility] Automated lymphocyte count a s percentage of total leukocytesOrdered By: Annel Calvert on 05-07-2024 Lymphocytes/100 WBC Auto (Unsp spec) 28.3 % 19-41 [facility] Basophil percentageOrdered B y: Annel Calvert on 05-07-2024 Basophils/100 WBC (Bld) 0.6 % 0-1 [facility] Bilirubin Test strip Ql (U)O rdered By: Annel Calvert on 05-07-2024 Bilirubin Ql (U) Negative Negative [facility] Bilirubin, totalOrdered By: Annel Calvert on 05-07-2024 Bilirubin [Mass/Vol] 0.30 mg/dL 0.20-1.00 [facility] Comment on above: For patients on eltr ombopag therapy, use of Dimension Brutus TBIL is not recommended. Blood urea nitrogen (BUN)/cr eatinine ratioOrdered By: Annel Calvert on 05-07-2024 Urea nitrogen/Creatinine [Mass ratio] 25.0 mg/mg High 10-20 [facility] CBC W/Diff, Automatedon 04-16 Absolute Lymph 2.34 X10 3/uL Normal 0.83-4.51 [facility] Comment on above: Performed By: #### L 500.4100, L506.0400, L500.4050, L506.1000, L502.0250, L501.9520 #### [facility] [address] [place], [address] Absolute Neut 5.0 X10 3/uL Normal 2.0-7.7 [facility] Comment on above: Performed By: #### L 500.4100, L506.0400, L500.4050, L506.1000, L502.0250, L501.9520 #### [facility] [address] [place], [address] Basophils/100 WBC (Bld) 0.6 % Normal 0-1 [facility] Comment on above: Performed By: #### L 500.4100, L506.0400, L500.4050, L506.1000, L502.0250, L501.9520 #### [facility] [address] [place], [address] Eosinophils/100 WBC (Bld) 1.9 % Normal 0-5 [facility] Comment on above: Performed By: #### L 500.4100, L506.0400, L500.4050, L506.1000, L502.0250, L501.9520 #### [facility] [address] [place], [address] Erythrocyte distribution width (RBC) [Ratio] 14.9 % High 11.6-14.6 [facility] Comment on above: Performed By: #### L 500.4100, L506.0400, L500.4050, L506.1000, L502.0250, L501.9520 #### [facility] [address] [place], [address] Hematocrit (Bld) [Volume fraction] 42.2 % Normal 37-47 [facility] Comment on above: Performed By: #### L 500.4100, L506.0400, L500.4050, L506.1000, L502.0250, L501.9520 #### [facility] [address] [place], [address] Hemoglobin (Bld) [Mass/Vol] 13.2 g/dL Normal 12.0-15.0 [facility] Comment on above: Performed By: #### L 500.4100, L506.0400, L500.4050, L506.1000, L502.0250, L501.9520 #### [facility] [address] [place], [address] IG% 0.100 Normal 0.0-0.9 [facility] Comment on above: Result Comment: IG% - Immature Granulocytes (promyelocytes, myelocytes and metamyelocytes) > 1% indicates that a LEFT SHIFT is Present. Performed By: #### L 500.4100, L506.0400, L500.4050, L506.1000, L502.0250, L501.9520 #### [facility] [address] [place], [address] Lymphocytes/100 WBC (Bld) 28.3 % Normal 19-41 [facility] Comment on above: Performed By: #### L 500.4100, L506.0400, L500.4050, L506.1000, L502.0250, L501.9520 #### [facility] [address] [place], [address] MCH (RBC) [Entitic mass] 25.4 pg Low 27.0-32.0 [facility] Comment on above: Performed By: #### L 500.4100, L506.0400, L500.4050, L506.1000, L502.0250, L501.9520 #### [facility] [address] [place], [address] MCHC (RBC) [Mass/Vol] 31.3 g/dL Low 32-36 [facility] Comment on above: Performed By: #### L 500.4100, L506.0400, L500.4050, L506.1000, L502.0250, L501.9520 #### [facility] [address] [place], [address] MCV (RBC) [Entitic vol] 81.2 fL Normal 81-99 [facility] Comment on above: Performed By: #### L 500.4100, L506.0400, L500.4050, L506.1000, L502.0250, L501.9520 #### [facility] [address] [place], [address] Monocytes/100 WBC (Bld) 8.7 % Normal 0-10 [facility] Comment on above: Performed By: #### L 500.4100, L506.0400, L500.4050, L506.1000, L502.0250, L501.9520 #### [facility] [address] [place], [address] Neutrophils/100 WBC (Bld) 60.4 % Normal 47-70 [facility] Comment on above: Performed By: #### L 500.4100, L506.0400, L500.4050, L506.1000, L502.0250, L501.9520 #### [facility] [address] [place], [address] Nucleated RBC (Bld) [#/Vol] 0 10*3/uL Normal 0-5 [facility] Comment on above: Performed By: #### L 500.4100, L506.0400, L500.4050, L506.1000, L502.0250, L501.9520 #### [facility] [address] [place], [address] Platelet mean volume (Bld) [Entitic vol] 10.5 fL Normal 6.2-12.0 [facility] Comment on above: Performed By: #### L 500.4100, L506.0400, L500.4050, L506.1000, L502.0250, L501.9520 #### [facility] [address] [place], [address] Platelets (Bld) [#/Vol] 268 10*3/uL Normal 150-450 [facility] Comment on above: Performed By: #### L 500.4100, L506.0400, L500.4050, L506.1000, L502.0250, L501.9520 #### [facility] [address] [place], [address] RBC (Bld) [#/Vol] 5.20 10*6/uL Normal 4.2-5.4 [facility] Comment on above: Performed By: #### L 500.4100, L506.0400, L500.4050, L506.1000, L502.0250, L501.9520 #### [facility] [address] [place], [address] RDW SD 43.3 fl Normal 35.1-43.9 [facility] Comment on above: Performed By: #### L 500.4100, L506.0400, L500.4050, L506.1000, L502.0250, L501.9520 #### [facility] [address] [place], [address] WBC (Bld) [#/Vol] 8.3 10*3/uL Normal 4.4-11.0 [facility] Comment on above: Performed By: #### L 500.4100, L506.0400, L500.4050, L506.1000, L502.0250, L501.9520 #### [facility] [address] [place], [address] Carbon dioxide measurementOr dered By: Annel Calvert on 05-07-2024 CO2 [Moles/Vol] 26.0 mmol/L 21.0-32.0 [facility] Chloride measurementOrdered By: Annel Calvert on 05-07-2024 Chloride [Moles/Vol] 108 mmol/L High 98-107 [facility] Comprehensive Metabolic Prof ilon 05-07-2024 Albumin [Mass/Vol] 3.2 g/dL Normal 3.2-5.0 [facility] Comment on above: Performed By: #### L 500.4100, L506.0400, L500.4050, L506.1000, L502.0250, L501.9520 #### [facility] [address] [place], [address] Albumin/Globulin [Mass ratio] 0.8 {ratio} Low 0.9-2.4 [facility] Comment on above: Performed By: #### L 500.4100, L506.0400, L500.4050, L506.1000, L502.0250, L501.9520 #### [facility] [address] [place], [address] ALK P 77 U/L Normal 45-117 [facility] Comment on above: Performed By: #### L 500.4100, L506.0400, L500.4050, L506.1000, L502.0250, L501.9520 #### [facility] [address] [place], [address] ALT [Catalytic activity/Vol] 26 U/L Normal 13-56 [facility] Comment on above: Performed By: #### L 500.4100, L506.0400, L500.4050, L506.1000, L502.0250, L501.9520 #### [facility] [address] [place], [address] AST [Catalytic activity/Vol] 18 U/L Normal 15-37 [facility] Comment on above: Performed By: #### L 500.4100, L506.0400, L500.4050, L506.1000, L502.0250, L501.9520 #### [facility] [address] [place], [address] Bilirubin [Mass/Vol] 0.30 mg/dL Normal 0.20-1.00 [facility] Comment on above: Result Comment: For patients on eltrombopag therapy, use of Dimension Brutus TBIL is not recommended. Performed By: #### L 500.4100, L506.0400, L500.4050, L506.1000, L502.0250, L501.9520 #### [facility] [address] [place], [address] BUN/CRE 25.0 RATIO High 10-20 [facility] Comment on above: Performed By: #### L 500.4100, L506.0400, L500.4050, L506.1000, L502.0250, L501.9520 #### [facility] [address] [place], [address] CA,Total 9.4 mg/dL Normal 8.5-10.1 [facility] Comment on above: Performed By: #### L 500.4100, L506.0400, L500.4050, L506.1000, L502.0250, L501.9520 #### [facility] [address] [place], [address] Chloride [Moles/Vol] 108 mmol/L High 98-107 [facility] Comment on above: Performed By: #### L 500.4100, L506.0400, L500.4050, L506.1000, L502.0250, L501.9520 #### [facility] [address] [place], [address] CO2 [Moles/Vol] 26.0 mmol/L Normal 21.0-32.0 [facility] Comment on above: Performed By: #### L 500.4100, L506.0400, L500.4050, L506.1000, L502.0250, L501.9520 #### [facility] [address] [place], [address] Creatinine [Mass/Vol] 1.08 mg/dL High 0.55-1.02 [facility] Comment on above: Result Comment: The validity of the calculated GFR GFRAA in patients over 70 years has not been determined. Clinical correlation is essential. Performed By: #### L 500.4100, L506.0400, L500.4050, L506.1000, L502.0250, L501.9520 #### [facility] [address] [place], [address] ECRCL 58.05 ml/min Normal [facility] Comment on above: Performed By: #### L 500.4100, L506.0400, L500.4050, L506.1000, L502.0250, L501.9520 #### [facility] [address] [place], [address] EST GFR - AA 64 mL/min Normal >60 [facility] Comment on above: Result Comment: Afri can Nigerien GFR Calc Performed By: #### L 500.4100, L506.0400, L500.4050, L506.1000, L502.0250, L501.9520 #### [facility] [address] [place], [address] GAP 5 Normal 5-15 [facility] Comment on above: Performed By: #### L 500.4100, L506.0400, L500.4050, L506.1000, L502.0250, L501.9520 #### [facility] [address] [place], [address] GFR/1.73 sq M.predicted among non-blacks MDRD (S/P/Bld) [Vol rate/Area] 53 mL/min/{1.73_m2} Low >60 [facility] Comment on above: Result Comment: Non- GFR Calc Performed By: #### L 500.4100, L506.0400, L500.4050, L506.1000, L502.0250, L501.9520 #### [facility] [address] [place], [address] Globulin (S) [Mass/Vol] 4.0 g/dL Normal 2.2-4.2 [facility] Comment on above: Performed By: #### L 500.4100, L506.0400, L500.4050, L506.1000, L502.0250, L501.9520 #### [facility] [address] [place], [address] Glucose [Mass/Vol] 111 mg/dL High 74-106 [facility] Comment on above: Result Comment: Fast ing Glucose result from 100 to 125 mg/dL suggests IMPAIRED HOMEOSTASIS per A.D.A. criteria. Performed By: #### L 500.4100, L506.0400, L500.4050, L506.1000, L502.0250, L501.9520 #### [facility] [address] [place], [address] Potassium [Moles/Vol] 4.1 mmol/L Normal 3.5-5.1 [facility] Comment on above: Performed By: #### L 500.4100, L506.0400, L500.4050, L506.1000, L502.0250, L501.9520 #### [facility] [address] [place], [address] Sodium [Moles/Vol] 139 mmol/L Normal 136-145 [facility] Comment on above: Performed By: #### L 500.4100, L506.0400, L500.4050, L506.1000, L502.0250, L501.9520 #### [facility] [address] [place], [address] T PROT 7.2 g/dL Normal 6.4-8.2 [facility] Comment on above: Performed By: #### L 500.4100, L506.0400, L500.4050, L506.1000, L502.0250, L501.9520 #### [facility] [address] [place], [address] Urea nitrogen [Mass/Vol] 27 mg/dL High 7-18 [facility] Comment on above: Performed By: #### L 500.4100, L506.0400, L500.4050, L506.1000, L502.0250, L501.9520 #### [facility] [address] [place], [address] Emergency Department Summary on 05-07-2024 Emergency Department Summary [facility] Medical Records Department [address] [facility] [place] [address] Emergency Department Summary 05/07/24 MR#: [id number] Acct: [id number] Name: NIMO MCCLOUD YESI Rep #: [id number] : 1950 73 From: Annel JACKSON PCP: Dr. Allison Gomez MD Status:DEP ER Location: ED HPI History of Present Illness Chief Complaint: General Illness Narrative Narrative: 76-year-old female with past medical history of HTN, HLD, CKD, pancreatitis, hypothyroidism presents with 4 days of nausea and epigastric and right upper quadrant abdominal pain. She has frequent burping and occasional acid reflux. She has no vomiting. She is still able to eat and drink. She reports normal bladder and bowel movements. No melena or hematochezia. She has history of a cholecystectomy and hysterectomy. She does not smoke or drink alcohol. Yesterday morning she had a low-grade temperature of 100.0 F but has not had a fever today. [facility] Medical History Obesity Urinary urgency Wears glasses Wears dentures Alcohol use Arthritis Easy bruising Restless legs Dietary restriction History of diverticulitis Shortness of breath on exertion Chronic cough Leg cramps History of edema History of echocardiogram History of stress test History of colon polyps GERD (gastroesophageal reflux disease) BiPAP (biphasic positive airway pressure) dependence Pyelonephritis Non-smoker Low back pain ANISHA (obstructive sleep apnea) Asthma Diarrhea Diabetes Shoulder pain Hemorrhoids Kidney disease Cancer HTN (hypertension) Hyperlipidemia Home Medications ???Medication ???Instructions ???Recorded ???Last Taken ???Type multivitamin 1 tab PO DAILY #90 tabs 02/16/22 U nknown Rx potassium citrate 99 mg capsule 99 mg PO DAILY #90 caps 02/16/22 U nknown Rx cyanocobalamin (vitamin B-12) 1 tab PO DAILY 06/03/22 Unknown Hi story magnesium gluconate 12.5 mg 250 mg PO DAILY 06/03/22 Unknown H istory magnesium (250 mg) tablet lovastatin 20 mg tablet 20 mg PO QHS cholesterol #90 tabs 03/23/23 Unknown Rx omeprazole 20 mg capsule,delayed 20 mg PO DAILY GERD #90 caps 03/23 Unknown Rx release ascorbate calcium (vitamin C) 500 500 mg PO DAILY 09/23/23 Unknown History mg tablet tirzepatide 15 mg/0.5 mL 15 mg (0.5 mL) subcut QWEEK #6 mL 02/07/24 Unknown Rx subcutaneous pen injector (Mounjaro) losartan 100 mg tablet 100 mg PO QDAY #30 tabs 03/23/24 U nknown Rx losartan 100 0.5 tab PO DAILY HTN 03/23/24 Unkn own History mg-hydrochlorothiazide 12.5 mg tablet levothyroxine 200 mcg tablet 200 mcg PO .Mon-Sat #90 tabs 04/06 Unknown Rx Lantus Solostar U-100 Insulin 100 50 unit (0.5 mL) subcut DAILY #45 04/10/24 Unknown Rx unit/mL (3 mL) subcutaneous pen mL (insulin glargine) blood-glucose sensor (FreeStyle #6 ea 04/10/24 Unknown Rx Ty 3 Plus Sensor device) insulin aspart 35 unit subcut TID #94.5 mL Unknown Rx (niacinamide)(U-100) 100 unit/mL(3 mL) subcutaneous pen (Fiasp FlexTouch U-100 Insulin) famotidine 20 mg tablet (Pepcid) 20 mg PO BID 14 days #28 tabs 04/16 06/06 Unknown Rx Allergy/AdvReac Type Severity Reaction Status Date / Time ciprofloxacin (From Cipro) Allergy Mild Rash Verified 05/07/24 15:02 ondansetron HCl (From Zofran Allergy Rash Verified 05/07/24 15:02 (as hydrochloride)) oxycodone HCl (From Percocet) Allergy Rash Verified 05/07/24 15:02 Penicillins (PCN) Allergy Other Verified 05/07/24 15:02 propoxyphene napsylate (From Allergy Rash Verified 05/07/24 15:02 Darvocet-N 100) nickel AdvReac Intermediate Rash Verified 05/07/24 15:02 Family History Father Colon cancer Myocardial infarction Diabetes Hypertension Hyperlipemia Grandmother No problems noted. Mother Colon cancer Cancer Heart disease CVA (cerebral vascular accident) Diabetes Thyroid disorder Hypertension Myocardial infarction Hyperlipemia Brother Colon cancer Unknown Breast cancer 2 cousins Uncle Colon cancer Surgical History History of laparoscopy History of oral surgery H/O: hysterectomy History of cholecystectomy History of colonoscopy ( 08/14/19) History of esophagogastroduodenoscopy (EGD) S/P colonoscopy S/P wrist surgery S/P hysterectomy Stone, kidney Status post laparoscopic cholecystectomy Social History Smoking Status: Never smoker second hand exposure: No alcohol intake: current alcohol intake frequency: holidays/special occasions only substance use type: does not use caffeine: Yes what type of physical activity do you participate in: none frequency: do (more content not included)... Normal [facility] Eosinophil percentageOrdered By: Annel Calvert on 05-07-2024 Eosinophils/100 WBC (Bld) 1.9 % 0-5 [facility] Epithelial cells.squamous LM Ql (Urine sed)Ordered By: Annel Calvert on 05-07-2024 Epithelial cells.squamous LM.HPF (Urine sed) [#/Area] 0 /[HPF] 5-10 [facility] Erythrocyte distribution wid th (RBC) [Ratio]Ordered By: Annel Calvert on 05-07-2024 Erythrocyte distribution width (RBC) [Entitic vol] 43.3 fL 35.1-43.9 [facility] Erythrocyte distribution wid th ratioOrdered By: Annel Calvert on 05-07-2024 Erythrocyte distribution width (RBC) [Ratio] 14.9 % High 11.6-14.6 [facility] Erythrocyte distribution wid th standard deviationOrdered By: Annel Calvert on 05-07-2024 Erythrocyte distribution width (RBC) [Ratio] 43.3 fl 35.1-43.9 [facility] Estimated glomerular filtrat ion rate (GFR) AmericanOrdered By: Annel Calvert on 05-07-2024 Estimated GFR (MDRD) Amer 64 mL/min >60 [facility] Comment on above: GFR Calc Estimation of creatinine rubén aranceOrdered By: Annel Calvert on 05-07-2024 Estimated Creatinine Clearance Calc 58.05 ml/min [facility] Glomerular filtration rate ( GFR) estimationOrdered By: Annel Calvert on 05-07-2024 Estimated GFR (MDRD) Non-Af Amer 53 mL/min Low >60 [facility] Comment on above: Non- GFR Calc GFR/1.73 sq M.predicted among non-blacks MDRD (S/P/Bld) [Vol rate/Area] 53 mL/min/{1.73_m2} Low >60 [facility] Comment on above: Non- GFR Calc Glucose Ql (U)Ordered By: Rohini Calvert on 05-07-2024 Urine Glucose (UA) Normal mg/dl Normal [facility] Glucose measurementOrdered B y: Annel Calvert on 05-07-2024 Glucose [Mass/Vol] 111 mg/dL High 74-106 [facility] Comment on above: Fasting Glucose resu lt from 100 to 125 mg/dL suggests IMPAIRED HOMEOSTASIS per A.D.A. criteria. Hematocrit Auto (Bld) [Volum e fraction]Ordered By: Annel Calvert on 05-07-2024 Hematocrit (Bld) [Volume fraction] 42.2 % 37-47 [facility] Hemoglobin measurementOrdere d By: Annel Calvert on 05-07-2024 Hemoglobin (Bld) [Mass/Vol] 13.2 g/dL 12.0-15.0 [facility] Immature granulocytes/100 WB C Auto (Bld)Ordered By: Annel Calvert on 05-07-2024 Immature granulocytes/100 WBC (Bld) 0.100 % 0.0-0.9 [facility] Comment on above: IG% - Immature Granu locytes (promyelocytes, myelocytes and metamyelocytes) > 1% indicates that a LEFT SHIFT is Present. Ketones Test strip Ql (U)Ord ered By: Annel Calvert on 05-07-2024 Ketones Ql (U) Negative Negative [facility] - Chemistry and C hemistry - challengeOrdered By: Annel Calvert on 05-07-2024 AST [Catalytic activity/Vol] 18 U/L 15-37 [facility] Lipaseon 05-07-2024 Lipase [Catalytic activity/Vol] 57 U/L Low 73-393 [facility] Comment on above: Performed By: #### L 500.4100, L506.0400, L500.4050, L506.1000, L502.0250, L501.9520 #### [facility] [address] [address], [address] Lipase measurementOrdered By : Annel Calvert on 05-07-2024 Lipase [Catalytic activity/Vol] 57 U/L Low 73-393 [facility] Lymphocytes Auto (Unsp spec) [#/Vol]Ordered By: Annel Calvert on 05-07-2024 Lymphocytes (Bld) [#/Vol] 2.34 10*3/uL 0.83-4.51 [facility] Lymphocytes/100 WBC Auto (Un sp spec)Ordered By: Annel Calvert on 05-07-2024 Lymphocytes/100 WBC (Bld) 28.3 % 19-41 [facility] MCV (mean corpuscular volume ) determinationOrdered By: Annel Calvert on 05-07-2024 MCV (RBC) [Entitic vol] 81.2 fL 81-99 [facility] Mean corpuscular hemoglobin (MCH) determinationOrdered By: Annel Calvert on 05-07-2024 MCH (RBC) [Entitic mass] 25.4 pg Low 27.0-32.0 [facility] Mean corpuscular hemoglobin concentration (MCHC) determinationOrdered By: Annel Calvert on 05-07-2024 MCHC (RBC) [Mass/Vol] 31.3 g/dL Low 32-36 [facility] Mean platelet volume determi nationOrdered By: Annel Calvert on 05-07-2024 Platelet mean volume (Bld) [Entitic vol] 10.5 fL 6.2-12.0 [facility] Microscopic analysis of urin e for red blood cells (RBC)Ordered By: Annel Calvert on 05-07-2024 Microscopic analysis of urine for red blood cells (RBC) 0 SEEN /hpf 0-5 [facility] Urine RBC 0 SEEN /hpf 0-5 [facility] Monocyte percentageOrdered B y: Annel Calvert on 05-07-2024 Monocytes/100 WBC (Bld) 8.7 % 0-10 [facility] Mucus LM Ql (Urine sed)Order ed By: Annel Calvert on 05-07-2024 Mucus Ql (Urine sed) 0 SEEN /hpf [facility] Neutrophil percentageOrdered By: Annel Calvert on 05-07-2024 Neutrophils/100 WBC (Bld) 60.4 % 47-70 [facility] Nitrite Test strip Ql (U)Ord ered By: Annel Calvert on 05-07-2024 Nitrite Ql (U) Negative Negative [facility] Nucleated red blood cell per centageOrdered By: Annel Calvert on 05-07-2024 Nucleated RBC/100 WBC (Bld) [Ratio] 0 % 0-5 [facility] Platelet countOrdered By: Rohini Calvert on 05-07-2024 Platelets (Bld) [#/Vol] 268 10*3/uL 150-450 [facility] Potassium measurementOrdered By: Annel Calvert on 05-07-2024 Potassium [Moles/Vol] 4.1 mmol/L 3.5-5.1 [facility] Protein Test strip Ql (U)Ord ered By: Annel Calvert on 05-07-2024 Protein Ql (U) 15 mg/dl High Negative [facility] RBC Auto (Bld) [#/Vol]Ordere d By: Annel Calvert on 05-07-2024 RBC (Bld) [#/Vol] 5.20 10*6/uL 4.2-5.4 [facility] Serum anion gap measurementO rdered By: Annel Calvert on 05-07-2024 Anion gap [Moles/Vol] 5 mmol/L 5-15 [facility] Serum globulin measurementOr dered By: Annel Calvert on 05-07-2024 Globulin (S) [Mass/Vol] 4.0 g/dL 2.2-4.2 [facility] Serum or plasma alanine clinton otransferase (ALT) measurementOrdered By: Annel Calvert on 05-07-2024 ALT [Catalytic activity/Vol] 26 U/L 13-56 [facility] Serum or plasma albumin bernardino urement (mass/volume)Ordered By: Annel Calvert on 05-07-2024 Albumin [Mass/Vol] 3.2 g/dL 3.2-5.0 [facility] Serum or plasma alkaline yumiko sphatase measurementOrdered By: Annel Calvert on 05-07-2024 ALP [Catalytic activity/Vol] 77 U/L 45-117 [facility] Serum or plasma calcium bernardino urement (mass/volume)Ordered By: Annel Calvert on 05-07-2024 Calcium [Mass/Vol] 9.4 mg/dL 8.5-10.1 [facility] Serum or plasma creatinine m easurement (mass/volume)Ordered By: Annel Calvert on 05-07-2024 Creatinine [Mass/Vol] 1.08 mg/dL High 0.55-1.02 [facility] Comment on above: The validity of the calculated GFR & GFRAA in patients over 70 years has not been determined. Clinical correlation is essential. Serum or plasma urea nitroge n measurement (mass/volume)Ordered By: Annel Calvert on 05-07-2024 Urea nitrogen [Mass/Vol] 27 mg/dL High 7-18 [facility] Sodium levelOrdered By: Annel Calvert on 05-07-2024 Sodium [Moles/Vol] 139 mmol/L 136-145 [facility] Squamous epithelial cells de tection in urine sediment by light microscopyOrdered By: Annel Calvert on 05-07-2024 Epithelial cells.squamous LM Ql (Urine sed) 0-5 SEEN /hpf 5-10 [facility] Total proteinOrdered By: Stephany Calvert on 05-07-2024 Protein [Mass/Vol] 7.2 g/dL 6.4-8.2 [facility] Urinalysis, Completeon 05-07 BACTERIA 3+ /hpf Normal None Seen [facility] Comment on above: Order Comment: CLEAN CATCH Performed By: #### L 400.0001, M100.2200 #### [facility] [address] [place], [address] EPI,SQUAMOUS 0-5 SEEN Normal 5-10 [facility] Comment on above: Order Comment: CLEAN CATCH Performed By: #### L 400.0001, M100.2200 #### [facility] [address] [place], [address] RBC 0 SEEN Normal 0-5 [facility] Comment on above: Order Comment: CLEAN CATCH Performed By: #### L 400.0001, M100.2200 #### [facility] [address] [place], [address] WBC 0-5 SEEN Normal [address] [place] [address] Comment on above: Order Comment: CLEAN CATCH Performed By: #### L 400.0001, M100.2200 #### [facility] [address] [place], [address] Mucus Ql (Urine sed) 0 SEEN Normal [facility] Comment on above: Order Comment: CLEAN CATCH Performed By: #### L 400.0001, M100.2200 #### [facility] [address] [place], [address] Urine blood detectionOrdered By: Annel Calvert on 05-07-2024 Urine Occult Blood Negative Negative [facility] Urine clarityOrdered By: Stephany Calvert on 05-07-2024 Clarity (U) Sl. Cloudy Clear [facility] Urine color determinationOrd ered By: Annel Calvert on 05-07-2024 Color (U) Yellow Yellow [facility] Urine glucose detectionOrder ed By: Annel Calvert on 05-07-2024 Glucose Ql (U) Normal mg/dl Normal [facility] Urine leukocyte esterase det ection by dipstickOrdered By: Annel Calvert on 05-07-2024 Leukocyte esterase Test strip Ql (U) 100 /ul High Negative [facility] Urine pHOrdered By: Annel tracey on 05-07-2024 pH (U) 6.0 [pH] 5.0 - 8.0 [facility] Urine sediment bacteria coun t by microscopy (number/high power field)Ordered By: Annel Calvert on 05-07-2024 Bacteria LM.HPF (Urine sed) [#/Area] 3 /[HPF] None Seen [facility] Urine specific gravity measu rementOrdered By: Annel Calvert on 05-07-2024 Specific gravity (U) [Rel density] 1.015 1.002-1.03 0 [facility] Urine urobilinogen measureme ntOrdered By: Annel Calvert on 05-07-2024 Urobilinogen Ql (U) Normal mg/dl Normal [facility] Urobilinogen Ql (U)Ordered B y: Annel Calvert on 05-07-2024 Urine Urobilinogen Normal mg/dl Normal [facility] White blood cell (WBC) count Ordered By: Annel Calvert on 05-07-2024 WBC (Bld) [#/Vol] 8.3 10*3/uL 4.4-11.0 [facility] White blood cell countOrdere d By: Annel Calvert on 05-07-2024 Urine WBC 0-5 SEEN /hpf 0-5 [facility] White blood cell count 0-5 SEEN /hpf 0-5 [facility] Ankle min 3 Viewson 04-17-19 25 Ankle min 3 Views [facility] [address] [place], [place] [address] (799) Ankle min 3 Views MR#: [id number] Acct: [id number] Name: NIMO MCCLOUD Rep #: [id number] : 1950 F 73 From: Atif Myers MD PCP: Dr. Allison Gomez MD Status: DEP ER Study: Ankle min 3 Views Date of Exam: 04/17/24 Exam# [id number] Ordering Dr: Jeffery Vieyra DO PROCEDURE: ANKLE MIN 3 VIEWS REASON FOR EXAM: Injury. TECHNIQUE: 3 views of the right ankle COMPARISON: None FINDINGS: No visible fracture. No suspicious bone lesion. Normal alignment. Mortise appears intact. No effusion. Soft tissues are unremarkable. Calcaneal enthesophytes. RAD/Ankle min 3 Views IMPRESSION: No acute osseous abnormalities. Reading Location: [facility] CC: Dr. Allison Gomez MD; Dr. Jeffery Vieyra DO Chief Administrative Officer: Signed Normal [facility] Emergency Department Summary on 04-17-2024 Emergency Department Summary [facility] Medical Records Department [address] [place] [id number] Emergency Department Summary 04/17/24 MR#: [id number] Acct: [id number] Name: NIMO MCCLOUD Rep #: [id number] : 1950 73 From: Jeffery Dixon PCP: Dr. Allison Gomez MD Status:DEP ER Location: ED HPI History of Present Illness Chief Complaint: Lower Extremity Injury Informant: patient Narrative Narrative: Presents for evaluation of right ankle injury occurring a week ago. She stepped back bumping mopping bucket. There was abrasion. She has had some soreness since then. No drainage no fevers. She was urgent care however could not get seen and therefore came here. No other injuries. She is a diabetic. [facility] Medical History Obesity Urinary urgency Wears glasses Wears dentures Alcohol use Arthritis Easy bruising Restless legs Dietary restriction History of diverticulitis Shortness of breath on exertion Chronic cough Leg cramps History of edema History of echocardiogram History of stress test History of colon polyps GERD (gastroesophageal reflux disease) BiPAP (biphasic positive airway pressure) dependence Pyelonephritis Non-smoker Low back pain ANISHA (obstructive sleep apnea) Asthma Diarrhea Diabetes Shoulder pain Hemorrhoids Kidney disease Cancer HTN (hypertension) Hyperlipidemia Home Medications ???Medication ???Instructions ???Recorded ???Last Taken ???Type multivitamin 1 tab PO DAILY #90 tabs 02/16/22 U nknown Rx potassium citrate 99 mg capsule 99 mg PO DAILY #90 caps 02/16/22 U nknown Rx cyanocobalamin (vitamin B-12) 1 tab PO DAILY 06/03/22 Unknown Hi story magnesium gluconate 12.5 mg 250 mg PO DAILY 06/03/22 Unknown H istory magnesium (250 mg) tablet lovastatin 20 mg tablet 20 mg PO QHS cholesterol #90 tabs 03/23/23 Unknown Rx omeprazole 20 mg capsule,delayed 20 mg PO DAILY GERD #90 caps 03/23 Unknown Rx release ascorbate calcium (vitamin C) 500 500 mg PO DAILY 09/23/23 Unknown History mg tablet tirzepatide 15 mg/0.5 mL 15 mg (0.5 mL) subcut QWEEK #6 mL 02/07/24 Unknown Rx subcutaneous pen injector (Mounjaro) losartan 100 mg tablet 100 mg PO QDAY #30 tabs 03/23/24 U nknown Rx losartan 100 0.5 tab PO DAILY HTN 03/23/24 Unkn own History mg-hydrochlorothiazide 12.5 mg tablet levothyroxine 200 mcg tablet 200 mcg PO .Mon-Sat #90 tabs 04/06 Unknown Rx Lantus Solostar U-100 Insulin 100 50 unit (0.5 mL) subcut DAILY #45 04/10/24 Unknown Rx unit/mL (3 mL) subcutaneous pen mL (insulin glargine) blood-glucose sensor (FreeStyle #6 ea 04/10/24 Unknown Rx Ty 3 Plus Sensor device) insulin aspart 35 unit subcut TID #94.5 mL Unknown Rx (niacinamide)(U-100) 100 unit/mL(3 mL) subcutaneous pen (Fiasp FlexTouch U-100 Insulin) Allergy/AdvReac Type Severity Reaction Status Date / Time ciprofloxacin (From Cipro) Allergy Mild Rash Verified 03/23/24 10:44 ondansetron HCl (From Zofran Allergy Rash Verified 03/23/24 10:44 (as hydrochloride)) oxycodone HCl (From Percocet) Allergy Rash Verified 03/23/24 10:44 Penicillins (PCN) Allergy Other Verified 03/23/24 10:44 propoxyphene napsylate (From Allergy Rash Verified 03/23/24 10:44 Darvocet-N 100) nickel AdvReac Intermediate Rash Verified 03/23/24 10:44 Family History Father Colon cancer Myocardial infarction Diabetes Hypertension Hyperlipemia Grandmother No problems noted. Mother Colon cancer Cancer Heart disease CVA (cerebral vascular accident) Diabetes Thyroid disorder Hypertension Myocardial infarction Hyperlipemia Brother Colon cancer Unknown Breast cancer 2 cousins Uncle Colon cancer Surgical History History of laparoscopy History of oral surgery H/O: hysterectomy History of cholecystectomy History of colonoscopy ( 08/14/19) History of esophagogastroduodenoscopy (EGD) S/P colonoscopy S/P wrist surgery S/P hysterectomy Stone, kidney Status post laparoscopic cholecystectomy Social History Smoking Status: Never smoker second hand exposure: No alcohol intake: current alcohol intake frequency: holidays/special occasions only substance use type: does not use caffeine: Yes what type of physical activity do you participate in: none frequency: does not exercise ROS ROS ED Constitutional Constitutional ED: Denies chills, fever(s) or sweats Cardiovascular Cardiovascular: Denies chest pain Respiratory/Chest Respiratory/Chest: Denies cough Gastrointestinal Gastrointestinal: Denies abdominal pain, diarrhea, nausea or vomiting Musculoskeletal (more content not included)... Normal [facility] 24-HF-Kggzygd DOrdered By: Mei Zambrano on 04-06-2024 Vitamin D 25-Hydroxy 63.0 ng/mL [facility] Comment on above: Vitamin D 25(OH) Sta tus Range Deficiency <20 ng/mL (50nmol/L) Insufficiency 20 - 30 ng/mL (50 - 75 nmol/L) Sufficiency 30 - 100 ng/mL (75 - 250 nmol/L) Toxicity >100 ng/mL (>250 nmol/L) Albumin to globulin ratioOrd ered By: Kandice Zambrano on 04-06-2024 Albumin/Globulin [Mass ratio] 0.9 {ratio} 0.9-2.4 [facility] Bilirubin, totalOrdered By: Kandice Zambrano on 04-06-2024 Bilirubin [Mass/Vol] 0.30 mg/dL 0.20-1.00 [facility] Comment on above: For patients on eltr ombopag therapy, use of Dimension Brutus TBIL is not recommended. Blood urea nitrogen (BUN)/cr eatinine ratioOrdered By: Kandice Zambrano on 04-06-2024 Urea nitrogen/Creatinine [Mass ratio] 19.4 mg/mg 10-20 [facility] Carbon dioxide measurementOr dered By: Kandice Zambrano on 04-06-2024 CO2 [Moles/Vol] 27.0 mmol/L 21.0-32.0 [facility] Chloride measurementOrdered By: Kandice Zambrano on 04-06-2024 Chloride [Moles/Vol] 107 mmol/L 98-107 [facility] Comprehensive Metabolic Prof ilon 04-06-2024 Albumin [Mass/Vol] 3.2 g/dL Normal 3.2-5.0 [facility] Comment on above: Performed By: #### L 500.4100, L506.0400, L500.4050, L506.1000, L502.0250, L501.9520 #### [facility] [address] [place], [address] Albumin/Globulin [Mass ratio] 0.9 {ratio} Normal 0.9-2.4 [facility] Comment on above: Performed By: #### L 500.4100, L506.0400, L500.4050, L506.1000, L502.0250, L501.9520 #### [facility] [address] [place], [address] ALK P 69 U/L Normal 45-117 [facility] Comment on above: Performed By: #### L 500.4100, L506.0400, L500.4050, L506.1000, L502.0250, L501.9520 #### [facility] [address] [place], [address] ALT [Catalytic activity/Vol] 25 U/L Normal 13-56 [facility] Comment on above: Performed By: #### L 500.4100, L506.0400, L500.4050, L506.1000, L502.0250, L501.9520 #### [facility] [address] [place], [address] AST [Catalytic activity/Vol] 18 U/L Normal 15-37 [facility] Comment on above: Performed By: #### L 500.4100, L506.0400, L500.4050, L506.1000, L502.0250, L501.9520 #### [facility] [address] [place], [address] Bilirubin [Mass/Vol] 0.30 mg/dL Normal 0.20-1.00 [facility] Comment on above: Result Comment: For patients on eltrombopag therapy, use of Dimension Brutus TBIL is not recommended. Performed By: #### L 500.4100, L506.0400, L500.4050, L506.1000, L502.0250, L501.9520 #### [facility] [address] [place], [address] BUN/CRE 19.4 RATIO Normal 10-20 [facility] Comment on above: Performed By: #### L 500.4100, L506.0400, L500.4050, L506.1000, L502.0250, L501.9520 #### [facility] [address] [place], [address] CA,Total 9.3 mg/dL Normal 8.5-10.1 [facility] Comment on above: Performed By: #### L 500.4100, L506.0400, L500.4050, L506.1000, L502.0250, L501.9520 #### [facility] [address] [place], [address] Chloride [Moles/Vol] 107 mmol/L Normal 98-107 [facility] Comment on above: Performed By: #### L 500.4100, L506.0400, L500.4050, L506.1000, L502.0250, L501.9520 #### [facility] [address] [place], [address] CO2 [Moles/Vol] 27.0 mmol/L Normal 21.0-32.0 [facility] Comment on above: Performed By: #### L 500.4100, L506.0400, L500.4050, L506.1000, L502.0250, L501.9520 #### [facility] [address] [place], [address] Creatinine [Mass/Vol] 1.08 mg/dL High 0.55-1.02 [facility] Comment on above: Result Comment: The validity of the calculated GFR GFRAA in patients over 70 years has not been determined. Clinical correlation is essential. Performed By: #### L 500.4100, L506.0400, L500.4050, L506.1000, L502.0250, L501.9520 #### [facility] [address] [place], [address] EST GFR - AA 64 mL/min Normal >60 [facility] Comment on above: Result Comment: Afri can Nigerien GFR Calc Performed By: #### L 500.4100, L506.0400, L500.4050, L506.1000, L502.0250, L501.9520 #### [facility] [address] [place], [address] GAP 5 Normal 5-15 [facility] Comment on above: Performed By: #### L 500.4100, L506.0400, L500.4050, L506.1000, L502.0250, L501.9520 #### [facility] [address] [place], [address] GFR/1.73 sq M.predicted among non-blacks MDRD (S/P/Bld) [Vol rate/Area] 53 mL/min/{1.73_m2} Low >60 [facility] Comment on above: Result Comment: Non- GFR Calc Performed By: #### L 500.4100, L506.0400, L500.4050, L506.1000, L502.0250, L501.9520 #### [facility] [address] [place], [address] Globulin (S) [Mass/Vol] 3.5 g/dL Normal 2.2-4.2 [facility] Comment on above: Performed By: #### L 500.4100, L506.0400, L500.4050, L506.1000, L502.0250, L501.9520 #### [facility] [address] [place], [address] Glucose [Mass/Vol] 163 mg/dL High 74-106 [facility] Comment on above: Result Comment: Fast ing Glucose result greater than or equal to 126 mg/dL suggests DIABETES MELLITUS per A.D.A. criteria. Performed By: #### L 500.4100, L506.0400, L500.4050, L506.1000, L502.0250, L501.9520 #### [facility] [address] [place], [address] Potassium [Moles/Vol] 4.2 mmol/L Normal 3.5-5.1 [facility] Comment on above: Performed By: #### L 500.4100, L506.0400, L500.4050, L506.1000, L502.0250, L501.9520 #### [facility] [address] [place], [address] Sodium [Moles/Vol] 139 mmol/L Normal 136-145 [facility] Comment on above: Performed By: #### L 500.4100, L506.0400, L500.4050, L506.1000, L502.0250, L501.9520 #### [facility] [address] [place], [place], [id number] T PROT 6.7 g/dL Normal 6.4-8.2 [facility] Comment on above: Performed By: #### L 500.4100, L506.0400, L500.4050, L506.1000, L502.0250, L501.9520 #### [facility] [address] [place], [address] Urea nitrogen [Mass/Vol] 21 mg/dL High 7-18 [facility] Comment on above: Performed By: #### L 500.4100, L506.0400, L500.4050, L506.1000, L502.0250, L501.9520 #### [facility] [address] [place], [place], [id number] Direct serum free thyroxine (FT4) measurementOrdered By: Kandice Zambrano on 04-06-2024 Free T4 [Mass/Vol] 1.80 ng/dL High 0.76-1.46 [facility] Estimated glomerular filtrat ion rate (GFR) AmericanOrdered By: Kandice Zambrano on 04-06-2024 Estimated GFR (MDRD) Amer 64 mL/min >60 [facility] Comment on above: GFR Calc Glomerular filtration rate ( GFR) estimationOrdered By: Kandice Zambrano on 04-06-2024 Estimated GFR (MDRD) Non-Af Amer 53 mL/min Low >60 [facility] Comment on above: Non- GFR Calc GFR/1.73 sq M.predicted among non-blacks MDRD (S/P/Bld) [Vol rate/Area] 53 mL/min/{1.73_m2} Low >60 [facility] Comment on above: Non- GFR Calc Glucose measurementOrdered B y: Kandice Zambrano on 04-06-2024 Glucose [Mass/Vol] 163 mg/dL High 74-106 [facility] Comment on above: Fasting Glucose resu lt greater than or equal to 126 mg/dL suggests DIABETES MELLITUS per A.D.A. criteria. High density lipoprotein (HD L) measurementOrdered By: Kandice Zambrano on 04-06-2024 Cholesterol in HDL [Mass/Vol] 43 mg/dL >40 [facility] Comment on above: The drugs N-Acetylcy steine and Metamizole may falsely depress this assay. Reference Range HDL <40 mg/dL Low HDL Cholesterol HDL >or= 60 mg/dL High HDL Cholesterol Laboratory - Chemistry and C hemistry - challengeOrdered By: Kandice Zambrano on 04-06-2024 AST [Catalytic activity/Vol] 18 U/L 15-37 [facility] Lipid Profileon 04-06-2024 Cholesterol [Mass/Vol] 129 mg/dL Normal 200 [facility] Comment on above: Result Comment: <200 mg/dL Desirable 200-240 mg/dL Borderline >240 mg/dL High Risk Performed By: #### L 500.4100, L506.0400, L500.4050, L506.1000, L502.0250, L501.9520 #### [facility] [address] [place], [place], [id number] Cholesterol in HDL [Mass/Vol] 43 mg/dL Normal [facility] Comment on above: Result Comment: The drugs N-Acetylcysteine and Metamizole may falsely depress this assay. Reference Range HDL <40 mg/dL Low HDL Cholesterol HDL >or= 60 mg/dL High HDL Cholesterol Performed By: #### L 500.4100, L506.0400, L500.4050, L506.1000, L502.0250, L501.9520 #### [facility] [address] [place], [place], [id number] Cholesterol in LDL [Mass/Vol] 67 mg/dL Normal 0-130 [facility] Comment on above: Performed By: #### L 500.4100, L506.0400, L500.4050, L506.1000, L502.0250, L501.9520 #### [facility] [address] [place], [place], [id number] Cholesterol in VLDL [Mass/Vol] 19 mg/dL Normal 5-40 [facility] Comment on above: Performed By: #### L 500.4100, L506.0400, L500.4050, L506.1000, L502.0250, L501.9520 #### [facility] [address] [place], [place], [id number] (031) Triglyceride [Mass/Vol] 95 mg/dL Normal [facility] Comment on above: Result Comment: The drugs N-Acetylcysteine and Metamizole may falsely depress this assay. Serum Triglycerides Reference Interval Normal <150 mg/dL Borderline high 150 - 199 mg/dL High 200 - 499 mg/dL Very High > or = 500 mg/dL Performed By: #### L 500.4100, L506.0400, L500.4050, L506.1000, L502.0250, L501.9520 #### [facility] [address] [place], [address] Low density lipoprotein (LDL ) cholesterol measurementOrdered By: Knadice Zambrano on 04-06-2024 Cholesterol in LDL [Mass/Vol] 67 mg/dL 0-130 [facility] Microalb:Creat Ratio,Random URon 04-06-2024 Creatinine [Mass/Vol] 130.00 mg/dL Normal NO RAN GE EST. [facility] Comment on above: Performed By: #### L 500.4100, L506.0400, L500.4050, L506.1000, L502.0250, L501.9520 #### [facility] [address] [place], [place], [id number] MALB:CRE 14.7 mg/g CRE Normal <30 mg/g CRE [facility] Comment on above: Performed By: #### L 500.4100, L506.0400, L500.4050, L506.1000, L502.0250, L501.9520 #### [facility] [address] [place], [address] MICROALBUMIN,UR 19.1 mg/L Normal NO RANGE EST. [facility] Comment on above: Performed By: #### L 500.4100, L506.0400, L500.4050, L506.1000, L502.0250, L501.9520 #### [facility] [address] [place], [address] Potassium measurementOrdered By: Kandice Zambrano on 04-06-2024 Potassium [Moles/Vol] 4.2 mmol/L 3.5-5.1 [facility] Random urine microalbumin me asurementOrdered By: Kandice Zambrano on 04-06-2024 Urine Random Microalbumin 19.1 mg/L NO RANGE EST. [facility] Serum anion gap measurementO rdered By: Kandice Zambrano on 04-06-2024 Anion gap [Moles/Vol] 5 mmol/L 5-15 [facility] Serum globulin measurementOr dered By: Kandice Zambrano on 04-06-2024 Globulin (S) [Mass/Vol] 3.5 g/dL 2.2-4.2 [facility] Serum or plasma alanine clinton otransferase (ALT) measurementOrdered By: Kandice Zambrano on 04-06-2024 ALT [Catalytic activity/Vol] 25 U/L 13-56 [facility] Serum or plasma albumin bernardino urement (mass/volume)Ordered By: Kandice Zambrano on 04-06-2024 Albumin [Mass/Vol] 3.2 g/dL 3.2-5.0 [facility] Serum or plasma alkaline yumiko sphatase measurementOrdered By: Kandice Zambrano on 04-06-2024 ALP [Catalytic activity/Vol] 69 U/L 45-117 [facility] Serum or plasma calcium bernardino urement (mass/volume)Ordered By: Kandice Zambrano on 04-06-2024 Calcium [Mass/Vol] 9.3 mg/dL 8.5-10.1 [facility] Serum or plasma cholesterol measurement (mass/volume)Ordered By: Kandice Zambrano on 04-06-2024 Cholesterol [Mass/Vol] 129 mg/dL <200 [facility] Comment on above: <200 mg/dL Desirable 200-240 mg/dL Borderline >240 mg/dL High Risk Serum or plasma creatinine m easurement (mass/volume)Ordered By: Kandice Zambrano on 04-06-2024 Creatinine [Mass/Vol] 1.08 mg/dL High 0.55-1.02 [facility] Comment on above: The validity of the calculated GFR & GFRAA in patients over 70 years has not been determined. Clinical correlation is essential. Serum or plasma thyroid stim ulating hormone (TSH) measurement (units/volume)Ordered By: Kandice Zambrano on 04-06-2024 TSH Qn 0.030 uIU/mL Low 0.358-3.74 0 [facility] Serum or plasma urea nitroge n measurement (mass/volume)Ordered By: Kandice Zambrano on 04-06-2024 Urea nitrogen [Mass/Vol] 21 mg/dL High 7-18 [facility] Sodium levelOrdered By: Ovidio Zambrano on 04-06-2024 Sodium [Moles/Vol] 139 mmol/L 136-145 [facility] T4 Free Directon 04-06-2024 T4 FREE DIRECT 1.80 ng/dL High 0.76-1.46 [facility] Comment on above: Performed By: #### L 500.4100, L506.0400, L500.4050, L506.1000, L502.0250, L501.9520 #### [facility] Laboratory [facility] [address] [place], [place], [id number] TSH QnOrdered By: Kandice moncada on 04-06-2024 Thyroid Stimulating Hormone (TSH) 0.030 uIU/mL Low 0.358-3.74 0 [facility] Thyroid Stim Hormone (TSH)on 04-06-2024 TSH 0.030 uIU/mL Low 0.358-3.74 0 [facility] Comment on above: Performed By: #### L 500.4100, L506.0400, L500.4050, L506.1000, L502.0250, L501.9520 #### [facility] [address] [place], [address] Total proteinOrdered By: Radha Zambrano on 04-06-2024 Protein [Mass/Vol] 6.7 g/dL 6.4-8.2 [facility] Triglycerides measurementOrd ered By: Kandice Zambrano on 04-06-2024 Triglyceride [Mass/Vol] 95 mg/dL <199 [facility] Comment on above: The drugs N-Acetylcy steine and Metamizole may falsely depress this assay.Serum Triglycerides Reference Interval Normal <150 mg/dL Borderline high 150 - 199 mg/dL High 200 - 499 mg/dL Very High > or = 500 mg/dL Urine albumin/creatinine rat io for detection of microalbuminuriaOrdered By: Kandice Zambrano on 04-06-2024 Urine Microalbumin/Creatinine Ratio 14.7 mg/g CRE <30 [facility] Urine creatinine measurement (mass/volume)Ordered By: Kandice Zambrano on 04-06-2024 Creatinine (U) [Mass/Vol] 130.00 mg/dL NO RANGE EST. [facility] Very low density lipoprotein (VLDL) cholesterol measurementOrdered By: Kandice Zambrano on 04-06-2024 Very low density lipoprotein (VLDL) cholesterol measurement 19 mg/dL 5-40 [facility] VLDL Cholesterol 19 mg/dL 5-40 [facility] Vitamin D,25 Hydroxyon 04-06 Vitamin D 25-OH 63.0 ng/mL Normal [facility] Comment on above: Result Comment: Nereida min D 25(OH) Status Range Deficiency <20 ng/mL (50nmol/L) Insufficiency 20 - 30 ng/mL (50 - 75 nmol/L) Sufficiency 30 - 100 ng/mL (75 - 250 nmol/L) Toxicity >100 ng/mL (>250 nmol/L) Performed By: #### L 500.4100, L506.0400, L500.4050, L506.1000, L502.0250, L501.9520 #### [facility] [address] [place], [address] Endocrinology Visit Reporton 03-23-2024 Endocrinology Visit Report [facility] [address] [place] [address]. [address] [place] [address] OFFICE VISIT Date of Service: 03/23/24 MR#: [id number] Acct: [id number] Name: NIMO MCCLOUD Rep #: [id number] : 1950 Provider: JUSTIN moncada Age/Sex: 73/F [place] [facility] [place]: Signed Intake Vital Signs 12/23/23 10:45 02/07/24 07:25 03/23/24 10:40 Height 5 ft 3 in 5 ft 3 in 5 ft 3 in Weight: 258 lb 4 oz 250 lb 253 lb 2 oz BMI 45.7 44.2 44.8 BP 125/72 H 141/65 H 132/60 H Blood Pressure Location Lt brachial Rt radial Lt brachial Position Sitting Sitting Sitting Respiration 20 H Pulse 64 65 66 Pulse Source Monitor Monitor Monitor Temp 98.0 F Pulse Oximetry (%) 97 96 96 Oxygen Delivery Method room air room air room air Intake Visit Reasons: 3 M FU Chief Complaint: f/u diabetes Is patient in pain?: No Allergies ciprofloxacin (From Cipro) Allergy (Mild, Verified 03/23/24 10:44) Rash ondansetron HCl (From Zofran (as hydrochloride)) Allergy (Verified 03/23/24 10:44) Rash oxycodone HCl (From Percocet) Allergy (Verified 03/23/24 10:44) Rash Penicillins (PCN) Allergy (Verified 03/23/24 10:44) Other propoxyphene napsylate (From Darvocet-N 100) Allergy (Verified 03/23/24 10:44) Rash nickel Adverse Reaction (Intermediate, Verified 03/23/24 10:44) Rash Medications ???Medication ???Instructions ???Recorded ???Confirmed ???Type multivitamin 1 tab PO DAILY #90 tabs 02/16/22 03/23/24 Rx potassium citrate 99 mg capsule 99 mg PO DAILY #90 caps 02/16/22 03/23/24 Rx cyanocobalamin (vitamin B-12) 1 tab PO DAILY 06/03/22 03/23/24 History magnesium gluconate 12.5 mg 250 mg PO DAILY 06/03/22 03/23/24 History magnesium (250 mg) tablet lovastatin 20 mg tablet 20 mg PO QHS cholesterol #90 tabs 03/23/23 03/23/24 Rx omeprazole 20 mg capsule,delayed 20 mg PO DAILY GERD #90 caps 03/23/23 03/23/24 Rx release Lantus Solostar U-100 Insulin 100 50 unit (0.5 mL) subcut DAILY #45 09/23/23 03/23/24 Rx unit/mL (3 mL) subcutaneous pen mL (insulin glargine) ascorbate calcium (vitamin C) 500 500 mg PO DAILY 09/23/23 03/23/24 History mg tablet levothyroxine 200 mcg tablet 200 mcg PO DAILY #90 tabs 09/23/23 03/23/24 Rx insulin aspart 35 unit subcut TID #94.5 mL 10/06/23 03/23/24 Rx (niacinamide)(U-100) 100 unit/mL(3 mL) subcutaneous pen (Fiasp FlexTouch U-100 Insulin) flash glucose sensor (FreeStyle #6 ea 10/28/23 03/23/24 Rx Ty 14 Day Sensor kit) tirzepatide 15 mg/0.5 mL 15 mg (0.5 mL) subcut QWEEK #6 mL 02/07/24 03/23/24 Rx subcutaneous pen injector (Agustina) losartan 100 mg tablet 100 mg PO QDAY #30 tabs 03/23/24 03/23/24 Rx losartan 100 0.5 tab PO DAILY HTN 03/23/24 History mg-hydrochlorothiazide 12.5 mg tablet Have you fallen in the past year?: No PFSH Medical History Obesity Urinary urgency Wears glasses Wears dentures Alcohol use Arthritis Easy bruising Restless legs Dietary restriction History of diverticulitis Shortness of breath on exertion Chronic cough Leg cramps History of edema History of echocardiogram History of stress test History of colon polyps GERD (gastroesophageal reflux disease) BiPAP (biphasic positive airway pressure) dependence Pyelonephritis Non-smoker Low back pain ANISHA (obstructive sleep apnea) Asthma Diarrhea Diabetes Shoulder pain Hemorrhoids Kidney disease Cancer HTN (hypertension) Hyperlipidemia Surgical History History of laparoscopy History of oral surgery H/O: hysterectomy History of cholecystectomy History of colonoscopy ( 08/14/19) History of esophagogastroduodenoscopy (EGD) S/P colonoscopy S/P wrist surgery S/P hysterectomy Stone, kidney Status post laparoscopic cholecystectomy Family History Father Colon cancer Myocardial infarction Diabetes Hypertension Hyperlipemia Grandmother No problems noted. Mother Colon cancer Cancer Heart disease CVA (cerebral vascular accident) Diabetes Thyroid disorder Hypertension Myocardial infarction Hyperlipemia Brother Colon cancer Unknown Breast cancer 2 cousins Uncle Colon cancer Social History Smoking Status: Never smoker second hand exposure: No alcohol intake: current alcohol intake frequency: holidays/special occasions only substance use type: does not use caffeine: Yes what type of physical activity do you participate in: none frequency: does not exercise HPI HPI Chief Complaint: f/u diabetes Details: NIMO MCCLOUD, is a 73 F who presents to the office today for evalu (more content not included)... Normal [facility] Laboratory - Hematology and Cell countson 03-23-2024 HbA1c (Bld) [Mass fraction] 7.8 % High 4.2-6.3 [facility] Pulmonary Visit Reporton Pulmonary Visit Report [facility] [address] [place] [address] OFFICE VISIT Date of Service: 02/07/24 MR#: [id number] Acct: [id number] Name: NIMO MCCLOUD Rep #: [id number] : 1950 Provider: JUSTIN Quintanilla Age/Sex: 73/F Location: [facility] [place] Status: Signed Assessment and Plan Assessment and Plan (1) ANISHA (obstructive sleep apnea): Status: Chronic Comment: BiPAP 18/14 cm of water (2) Morbid obesity: Status: Chronic Plan Details Additional Comments: Stable, she is using and benefiting from Pap therapy. No indication for titration study at this time. Continue to encourage weight loss. Contact the office for any new or worsening symptoms in the meantime. Follow-up in 1 year. Follow Up: 1 Year (CSM) HPI 1 Y FU Chief Complaint: Routine follow-up HPI Comments Details: This patient presents to the office today for follow-up of her obstructive sleep apnea. She is ambulatory and currently on room air. She has not been seen in the ED or urgent care for any respiratory illnesses since her last office visit. She has not required any antibiotics or prednisone for any breathing problems. She wakes up feeling rested and refreshed. She is not having excessive nocturia. She admits to an occasional nap. She denies falling asleep unintentionally. She is having some difficulty with dry mouth and morning headaches. She has shortness of breath on exertion. She has an occasional dry cough. She denies any wheezing, chest tightness, chest pain or palpitations. She denies any fever, chills or body aches. Compliance report for the past 30 days shows 100% compliance with an average use of 8 hours and 45 minutes per night. Current setting is 18/14 cm of water with a residual AHI of 1.5 events per hour. Leaks do not appear to be an issue. Intake Vital Signs 02/01/23 07:03 09/23/23 09:35 12/23/23 10:45 02/07/24 07:25 Height 5 ft 4 in 5 ft 3 in 5 ft 3 in 5 ft 3 in Weight: 250 lb BMI 44.2 BP 141/65 H Blood Pressure Location Rt radial Position Sitting Respiration 20 H Pulse 65 Pulse Source Monitor Temp 98.0 F Temperature Source Temporal Artery Pulse Oximetry (%) 96 Oxygen Delivery Method room air Intake Visit Reasons: 1 Y FU Chief Complaint: f/u diabetes Youth Associate Required: No DME Vendor: stephanie Accompanied by: Self Allergies ciprofloxacin (From Cipro) Allergy (Mild, Verified 02/07/24 11:38) Rash ondansetron HCl (From Zofran (as hydrochloride)) Allergy (Verified 02/07/24 11:38) Rash oxycodone HCl (From Percocet) Allergy (Verified 02/07/24 11:38) Rash Penicillins (PCN) Allergy (Verified 02/07/24 11:38) Other propoxyphene napsylate (From Darvocet-N 100) Allergy (Verified 02/07/24 11:38) Rash nickel Adverse Reaction (Intermediate, Verified 02/07/24 11:38) Rash Medications ???Medication ???Instructions ???Recorded ???Confirmed ???Type multivitamin 1 tab PO DAILY #90 tabs 02/16/22 02/07/24 Rx potassium citrate 99 mg capsule 99 mg PO DAILY #90 caps 02/16/22 02/07/24 Rx cyanocobalamin (vitamin B-12) 1 tab PO DAILY 06/03/22 02/07/24 History magnesium gluconate 12.5 mg 250 mg PO DAILY 06/03/22 02/07/24 History magnesium (250 mg) tablet lovastatin 20 mg tablet 20 mg PO QHS cholesterol #90 tabs 03/23/23 02/07/24 Rx omeprazole 20 mg capsule,delayed 20 mg PO DAILY GERD #90 caps 03/23/23 02/07/24 Rx release Lantus Solostar U-100 Insulin 100 50 unit (0.5 mL) subcut DAILY #45 09/23/23 02/07/24 Rx unit/mL (3 mL) subcutaneous pen mL (insulin glargine) ascorbate calcium (vitamin C) 500 500 mg PO DAILY 09/23/23 02/07/24 History mg tablet levothyroxine 200 mcg tablet 200 mcg PO DAILY #90 tabs 09/23/23 02/07/24 Rx losartan 100 1 tab PO DAILY HTN #90 tabs 09/23/23 02/07/24 Rx mg-hydrochlorothiazide 12.5 mg tablet insulin aspart 35 unit subcut TID #94.5 mL 10/06/23 02/07/24 Rx (niacinamide)(U-100) 100 unit/mL(3 mL) subcutaneous pen (Fiasp FlexTouch U-100 Insulin) flash glucose sensor (FreeStyle #6 ea 10/28/23 12/23/23 Rx Ty 14 Day Sensor kit) tirzepatide 12.5 mg/0.5 mL 12.5 mg (0.5 mL) subcut QWEEK #2 mL 02/07/24 Rx subcutaneous pen injector (Agustina) Have you fallen in the past year?: No PFSH Medical History Obesity Urinary urgency Wears glasses Wears dentures Alcohol use Arthritis Easy bruising Restless legs Dietary restriction History of diverticulitis Shortness of breath on exertion Chronic cough Leg cramps History of edema History of echocardiogram History of stress test History of colon polyps GERD (gastroesophageal reflux disease) BiPAP (biphasic positive airway pressure) dependence Pyelonephritis Non-smoker Low back (more content not included)... Normal [facility] Thyroidon 12-30-2023 Thyroid [facility] [address] [place], [place] [address] Thyroid MR#: [id number] Acct: [id number] Name: NIMO MCCLOUD Rep #: [id number] : 1950 F 73 From: Tom valentine DO PCP: Dr. Allison Gomez MD Status: REG CLI Study: Thyroid Date of Exam: 12/30/23 Exam# [id number] Ordering Dr: Kandice Zambrano POWER MANAGER-C [id number] EXAM: US SOFT TISSUES HEAD AND NECK, THYROID CLINICAL INDICATION: enlarged thyroid gland TECHNIQUE: Greyscale and color doppler imaging was performed of the thyroid gland. COMPARISON: CTA chest on the same date. FINDINGS: LEFT THYROID LOBE: The left thyroid lobe measures 4.2 x 1.3 x 1.4 cm. Homogeneous echotexture with normal vascularity. No thyroid nodules are present. RIGHT THYROID LOBE: The right thyroid lobe measures 4.1 x 1.5 x 1.8 cm. Within the right thyroid lobe, there is a 0.9 cm nodule. This nodule is solid or almost completely solid, hyperechoic or isoechoic, uqdvb-iyqd-ocid, ill-defined and contains no echogenic foci. TI-RADS points: 3. TI-RADS category: TR3. This nodule is mildly suspicious but no FNA or follow-up is necessary given the small size of this nodule. Within the right thyroid lobe, there is a 1.3 cm nodule. This nodule is solid or almost completely solid, hypoechoic, etvsp-ebad-llmf, ill-defined and contains no echogenic foci. TI-RADS points: 4. TI-RADS category: TR4. This nodule is moderately suspicious. Recommend follow-up thyroid ultrasounds at 1, 2, 3 and 5 years. Within the right thyroid lobe, there is a 0.9 cm nodule. This nodule is solid or almost completely solid, hypoechoic, vujtd-rbzi-hikn, smoothly marginated and contains no echogenic foci. TI-RADS points: 4. TI-RADS category: TR4. This nodule is moderately suspicious but no FNA or follow-up is necessary given the small size of this nodule. ISTHMUS: The thyroid isthmus measures 0.4 cm. No thyroid nodules are present. US/Thyroid IMPRESSION: 1. There are 3 right-sided thyroid nodules, the largest measuring 1.3 cm. No FNA is indicated at this time. Recommend follow-up thyroid ultrasound at 1, 2, 3, and 5 years. 2. No significant enlargement of the thyroid gland. Electronically Signed: Tom Lindsay DO at 22:07 EDT , CC: JUSTIN Zambrano; Dr. Allison Gomez MD Chief Administrative Officer: Signed Normal [facility] Urine Cultureon 12-24-2023 [facility] PLEASE ADD RESULTS T O DR. EGAN Culture exhibits no growth. Normal [facility] Comment on above: Performed By: #### L 400.0001, M100.2200 #### [facility] Laboratory [address] [place], [place], [address] Endocrinology Visit Reporton 12-23-2023 Endocrinology Visit Report [facility] [address] [place] [address] OFFICE VISIT Date of Service: 12/23/23 MR#: [id number] Acct: [id number] Name: NIMO MCCLOUD YESI Rep #: [id number] : 1950 Provider: JUSTIN moncada Age/Sex: 73/F [place] [facility] [place]: Signed Intake Vital Signs 09/23/23 09:35 12/23/23 10:45 Height 5 ft 3 in 5 ft 3 in Weight: 265 lb 258 lb 4 oz BMI 46.9 45.7 BP 118/70 125/72 H Blood Pressure Location Lt brachial Lt brachial Position Sitting Sitting Pulse 68 64 Pulse Source Monitor Monitor Pulse Oximetry (%) 97 97 Oxygen Delivery Method room air room air Intake Visit Reasons: 5 M FU, CX 08/04 Chief Complaint: f/u diabetes Allergies ciprofloxacin (From Cipro) Allergy (Mild, Verified 09/23/23 09:39) Rash ondansetron HCl (From Zofran (as hydrochloride)) Allergy (Verified 09/23/23 09:39) Rash oxycodone HCl (From Percocet) Allergy (Verified 09/23/23 09:39) Rash Penicillins (PCN) Allergy (Verified 09/23/23 09:39) Other propoxyphene napsylate (From Darvocet-N 100) Allergy (Verified 09/23/23 09:39) Rash nickel Adverse Reaction (Intermediate, Verified 09/23/23 09:39) Rash Medications ???Medication ???Instructions ???Recorded ???Confirmed ???Type multivitamin 1 tab PO DAILY #90 tabs 02/16/22 12/23/23 Rx potassium citrate 99 mg capsule 99 mg PO DAILY #90 caps 02/16/22 12/23/23 Rx cyanocobalamin (vitamin B-12) 1 tab PO DAILY 06/03/22 12/23/23 History magnesium gluconate 12.5 mg 250 mg PO DAILY 06/03/22 12/23/23 History magnesium (250 mg) tablet lovastatin 20 mg tablet 20 mg PO QHS cholesterol #90 tabs 03/23/23 12/23/23 Rx omeprazole 20 mg capsule,delayed 20 mg PO DAILY GERD #90 caps 03/23/23 12/23/23 Rx release Lantus Solostar U-100 Insulin 100 50 unit (0.5 mL) subcut DAILY #45 09/23/23 12/23/23 Rx unit/mL (3 mL) subcutaneous pen mL (insulin glargine) ascorbate calcium (vitamin C) 500 500 mg PO DAILY 09/23/23 12/23/23 History mg tablet levothyroxine 200 mcg tablet 200 mcg PO DAILY #90 tabs 09/23/23 12/23/23 Rx losartan 100 1 tab PO DAILY HTN #90 tabs 09/23/23 12/23/23 Rx mg-hydrochlorothiazide 12.5 mg tablet tirzepatide 12.5 mg/0.5 mL 12.5 mg (0.5 mL) subcut QWEEK #2 mL 09/23/23 12/23/23 Rx subcutaneous pen injector (Mounjaro) insulin aspart 35 unit subcut TID #94.5 mL 10/06/23 12/23/23 Rx (niacinamide)(U-100) 100 unit/mL(3 mL) subcutaneous pen (Fiasp FlexTouch U-100 Insulin) flash glucose sensor (FreeStyle #6 ea 10/28/23 12/23/23 Rx Ty 14 Day Sensor kit) Have you fallen in the past year?: No PFSH Medical History Obesity Urinary urgency Wears glasses Wears dentures Alcohol use Arthritis Easy bruising Restless legs Dietary restriction History of diverticulitis Shortness of breath on exertion Chronic cough Leg cramps History of edema History of echocardiogram History of stress test History of colon polyps GERD (gastroesophageal reflux disease) BiPAP (biphasic positive airway pressure) dependence Pyelonephritis Non-smoker Low back pain ANISHA (obstructive sleep apnea) Asthma Diarrhea Diabetes Shoulder pain Hemorrhoids Kidney disease Cancer HTN (hypertension) Hyperlipidemia Surgical History History of laparoscopy History of oral surgery H/O: hysterectomy History of cholecystectomy History of colonoscopy ( 08/14/19) History of esophagogastroduodenoscopy (EGD) S/P colonoscopy S/P wrist surgery S/P hysterectomy Stone, kidney Status post laparoscopic cholecystectomy Family History Father Colon cancer Myocardial infarction Diabetes Hypertension Hyperlipemia Grandmother No problems noted. Mother Colon cancer Cancer Heart disease CVA (cerebral vascular accident) Diabetes Thyroid disorder Hypertension Myocardial infarction Hyperlipemia Brother Colon cancer Unknown Breast cancer 2 cousins Uncle Colon cancer Social History Smoking Status: Never smoker second hand exposure: No alcohol intake: current alcohol intake frequency: holidays/special occasions only substance use type: does not use caffeine: Yes what type of physical activity do you participate in: none frequency: does not exercise HPI HPI Chief Complaint: f/u diabetes Details: NIMO MCCLOUD, is a 73 F who presents to the office today for evaluation and management of diabetes. A1C today is 7.6%, improved slightly from 09/23/23 at 7.8%. She has lost an additional 7 lbs- she is pleased with her progress. Currently taking Lantus 48 u once prudencio (more content not included)... Normal [facility] Urinalysis, Completeon 12-22 EPI,SQUAMOUS 0-5 SEEN Normal -10 [facility] Comment on above: Order Comment: JARRED Brady ADD RESULTS TO DR. JIGNESH PARSONS TO SPECIFY Performed By: #### L 400.0001, M100.2200 #### [facility] Laboratory [address] [place], [address] BACTERIA 0 SEEN Normal None Seen [facility] Comment on above: Order Comment: JARRED Brady ADD RESULTS TO DR. JIGNESH PARSONS TO SPECIFY Performed By: #### L 400.0001, M100.0 #### [facility] Laboratory [address] [place], [address] Mucus Ql (Urine sed) 0 SEEN Normal [facility] Comment on above: Order Comment: JARRED Brady ADD RESULTS TO DR. JIGNESH PARSONS TO SPECIFY Performed By: #### L 400.0001, M100.0 #### [facility] Laboratory [address] [place], [address] RBC 0 SEEN Normal 0-5 [facility] Comment on above: Order Comment: JARRED Brady ADD RESULTS TO DR. JIGNESH PARSONS TO SPECIFY Performed By: #### L 400.0001, M100.2200 #### [facility] Laboratory [address] [place], [address] WBC 0 SEEN Normal 0-5 [facility] Comment on above: Order Comment: JARRED Brady ADD RESULTS TO DR. JIGNESH PARSONS TO SPECIFY Performed By: #### L 400.0001, M100.2200 #### [facility] [address] [place], [address] Absolute lymphocyte countOrd ered By: Jad Marinelli on 06-07-2023 Lymphocytes Auto (Unsp spec) [#/Vol] 2.36 10*3/uL 0.83-4.51 [facility] Automated lymphocyte count a s percentage of total leukocytesOrdered By: Jad Larsonne on 06-07-2023 Lymphocytes/100 WBC Auto (Unsp spec) 24.7 % 19-41 [facility] Basophil percentageOrdered B y: Jad Marinelli on 06-07-2023 Basophil percentage 0 SEEN /hpf 0-5 [facility] Basophils/100 WBC (Bld) 0.5 % 0-1 [facility] Bilirubin [Mass/Vol] 0.30 mg/dL 0.20-1.00 [facility] Comment on above: For patients on eltr ombopag therapy, use of Dimension Brutus TBIL is not recommended. Chloride [Moles/Vol] 109 mmol/L 98-107 [facility] Eosinophils/100 WBC (Bld) 2.1 % 0-5 [facility] Glucose [Mass/Vol] 163 mg/dL 74-106 [facility] Comment on above: Fasting Glucose resu lt greater than or equal to 126 mg/dL suggests DIABETES MELLITUS per A.D.A. criteria. Hemoglobin (Bld) [Mass/Vol] 12.2 g/dL 12.0-15.0 [facility] Monocytes/100 WBC (Bld) 7.4 % 0-10 [facility] Neutrophils (Bld) [#/Vol] 6.2 10*3/uL 2.0-7.7 [facility] Neutrophils/100 WBC (Bld) 64.9 % 47-70 [facility] Potassium [Moles/Vol] 4.1 mmol/L 3.5-5.1 [facility] Protein [Mass/Vol] 7.1 g/dL 6.4-8.2 [facility] Sodium [Moles/Vol] 137 mmol/L 136-145 [facility] WBC (Bld) [#/Vol] 9.6 10*3/uL 4.4-11.0 [facility] Bilirubin Test strip Ql (U)O rdered By: Jad Marinelli on 06-07-2023 Bilirubin Ql (U) Negative Negative [facility] Determination of erythrocyte mean corpuscular volume (MCV)Ordered By: Jad Marinelli on 06-07-2023 MCV (RBC) [Entitic vol] 81.5 fL 81-99 [facility] Direct bilirubinOrdered By: Jad Marinelli on 06-07-2023 Bilirubin.direct [Mass/Vol] 0.21 mg/dL 0.00-0.30 [facility] Erythrocyte distribution wid th ratioOrdered By: Jad Marinelli on 06-07-2023 Erythrocyte distribution width (RBC) [Ratio] 15.2 % 11.6-14.6 [facility] Erythrocyte distribution wid th standard deviationOrdered By: Jad Marinelli on 06-07-2023 Erythrocyte distribution width (RBC) [Entitic vol] 44.0 fL 35.1-43.9 [facility] Hematocrit Auto (Bld) [Volum e fraction]Ordered By: Jad Marinelli on 06-07-2023 Hematocrit (Bld) [Volume fraction] 40.6 % 37-47 [facility] Immature granulocytes/100 WB C Auto (Bld)Ordered By: Jad Marinelli on 06-07-2023 Immature granulocytes/100 WBC (Bld) 0.400 % 0.0-0.9 [facility] Comment on above: IG% - Immature Granu locytes (promyelocytes, myelocytes and metamyelocytes) > 1% indicates that a LEFT SHIFT is Present. Ketones Test strip Ql (U)Ord ered By: Jad Marinelli on 06-07-2023 Ketones Ql (U) 5 mg/dl Negative [facility] Laboratory - Chemistry and C hemistry - challengeOrdered By: Jad Marinelli on 06-07-2023 ALP [Catalytic activity/Vol] 68 U/L 45-117 [facility] ALT [Catalytic activity/Vol] 27 U/L 13-56 [facility] CO2 [Moles/Vol] 24.0 mmol/L 21.0-32.0 [facility] Globulin (S) [Mass/Vol] 3.9 g/dL 2.2-4.2 [facility] Lipase [Catalytic activity/Vol] 70 U/L 13-75 [facility] Comment on above: Please note:LIPASE r evised reference range effective 22. New Lipase methodology. Expected to produce lower values than the previous assay method. NEW Reference Range: 13 - 75 U/L Urea nitrogen/Creatinine [Mass ratio] 17.8 mg/mg 10-20 [facility] Laboratory - Hematology and Cell countsOrdered By: Jad Marinelli on 06-07-2023 MCH (RBC) [Entitic mass] 24.5 pg 27.0-32.0 [facility] MCHC (RBC) [Mass/Vol] 30.0 g/dL 32-36 [facility] Nucleated RBC/100 WBC (Bld) [Ratio] 0 % 0-5 [facility] Platelet mean volume (Bld) [Entitic vol] 10.5 fL 6.2-12.0 [facility] Platelets (Bld) [#/Vol] 278 10*3/uL 150-450 [facility] Mucus LM Ql (Urine sed)Order ed By: Jad Marinelli on 06-07-2023 Mucus Ql (Urine sed) 0 SEEN /hpf [facility] Nitrite Test strip Ql (U)Ord ered By: Jad Marinelli on 06-07-2023 Nitrite Ql (U) Negative Negative [facility] No Panel InformationOrdered By: Jad Marinelli on 06-07-2023 Estimated Creatinine Clearance Calc 49.41 ml/min [facility] Estimated GFR (MDRD) Amer 50 mL/min >60 [facility] Comment on above: GFR Calc Estimated GFR (MDRD) Non-Af Amer 41 mL/min >60 [facility] Comment on above: Non- GFR Calc Urine RBC 0 SEEN /hpf 0-5 [facility] Protein Test strip Ql (U)Ord ered By: Jad Marinelli on 06-07-2023 Protein Ql (U) Negative Negative [facility] RBC Auto (Bld) [#/Vol]Ordere d By: Jad Marinelli on 06-07-2023 RBC (Bld) [#/Vol] 4.98 10*6/uL 4.2-5.4 [facility] Serum or plasma calcium bernardino urement (mass/volume)Ordered By: Jad Marinelli on 06-07-2023 Calcium [Mass/Vol] 9.2 mg/dL 8.5-10.1 [facility] Serum or plasma creatinine m easurement (mass/volume)Ordered By: Jad Marinelli on 06-07-2023 Creatinine [Mass/Vol] 1.35 mg/dL 0.55-1.02 [facility] Comment on above: The validity of the calculated GFR & GFRAA in patients over 70 years has not been determined. Clinical correlation is essential. Serum or plasma urea nitroge n measurement (mass/volume)Ordered By: Jad Marinelli on 06-07-2023 Urea nitrogen [Mass/Vol] 24 mg/dL 7-18 [facility] Squamous epithelial cells de tection in urine sediment by light microscopyOrdered By: Jad Marinelli on 06-07-2023 Epithelial cells.squamous LM Ql (Urine sed) 0-5 SEEN /hpf 5-10 [facility] Thin prep Papanicolaou smear with manual screeningOrdered By: Jad Marinelli on 06-07-2023 Thin prep Papanicolaou smear with manual screening 3.2 g/dL 3.2-5.0 [facility] Thin prep Papanicolaou smear with manual screening 26 U/L 15-37 [facility] Thin prep Papanicolaou smear with manual screening 4 5-15 [facility] Urine blood detectionOrdered By: Jad Marienlli on 06-07-2023 RBC Ql (U) Negative Negative [facility] Urine clarityOrdered By: Cameron Marinelli on 06-07-2023 Clarity (U) Clear Clear [facility] Urine color determinationOrd ered By: Jad Marinelli on 06-07-2023 Color (U) Yellow Yellow [facility] Urine glucose detectionOrder ed By: Jad Marinelli on 06-07-2023 Glucose Ql (U) 250 mg/dl Normal [facility] Urine leukocyte esterase det ection by dipstickOrdered By: Jad Marinelli on 06-07-2023 Leukocyte esterase Test strip Ql (U) Negative Negative [facility] Urine pHOrdered By: Jad melgar on 06-07-2023 pH (U) 5.0 [pH] 5.0 - 8.0 [facility] Urine sediment bacteria coun t by microscopy (number/high power field)Ordered By: Jad Marinelli on 06-07-2023 Bacteria LM.HPF (Urine sed) [#/Area] 0 /[HPF] None Seen [facility] Urine specific gravity measu rementOrdered By: Jad Marinelli on 06-07-2023 Specific gravity (U) [Rel density] 1.015 1.002-1.03 0 [facility] Urine urobilinogen measureme ntOrdered By: Jad Marinelli on 06-07-2023 Urobilinogen Ql (U) Normal mg/dl Normal [facility] Culture, urineOrdered By: Me elizabeth Zambrano on 05-31-2023 Bacteria identified Cx Nom (U) Enterococcus faecalis [facility] Basophil percentageOrdered B y: Kandice Zambrano on 05-06-2023 Basophil percentage 5-10 SEEN /hpf 0-5 [facility] Bilirubin [Mass/Vol] 0.30 mg/dL 0.20-1.00 [facility] Comment on above: For patients on eltr ombopag therapy, use of Dimension Brutus TBIL is not recommended. Chloride [Moles/Vol] 106 mmol/L 98-107 [facility] Cholesterol [Mass/Vol] 143 mg/dL <200 [facility] Comment on above: <200 mg/dL Desirable 200-240 mg/dL Borderline >240 mg/dL High Risk Glucose [Mass/Vol] 227 mg/dL 74-106 [facility] Comment on above: Glucose result great er than or equal to 200 mg/dLsuggests DIABETES MELLITUS per A.D.A. criteria. Potassium [Moles/Vol] 4.4 mmol/L 3.5-5.1 [facility] Protein [Mass/Vol] 7.0 g/dL 6.4-8.2 [facility] Sodium [Moles/Vol] 136 mmol/L 136-145 [facility] Triglyceride [Mass/Vol] 129 mg/dL <199 [facility] Comment on above: The drugs N-Acetylcy steine and Metamizole may falsely depress this assay.Serum Triglycerides Reference Interval Normal <150 mg/dL Borderline high 150 - 199 mg/dL High 200 - 499 mg/dL Very High > or = 500 mg/dL Bilirubin Test strip Ql (U)O rdered By: Kandice Zambrano on 05-06-2023 Bilirubin Ql (U) Negative Negative [facility] Culture, urineOrdered By: Me elizabeth Zambrano on 05-06-2023 Bacteria identified Cx Nom (U) Enterococcus faecalis [facility] Bacteria identified Cx Nom (U) Aerococcus urinae [facility] Ketones Test strip Ql (U)Ord ered By: Kandice Zambrano on 05-06-2023 Ketones Ql (U) Negative Negative [facility] Laboratory - Chemistry and C hemistry - challengeOrdered By: Kandice Zambrano on 05-06-2023 Albumin/Globulin [Mass ratio] 0.8 {ratio} 0.9-2.4 [facility] ALP [Catalytic activity/Vol] 74 U/L 45-117 [facility] ALT [Catalytic activity/Vol] 42 U/L 13-56 [facility] Cholesterol in HDL [Mass/Vol] 37 mg/dL >40 [facility] Comment on above: The drugs N-Acetylcy steine and Metamizole may falsely depress this assay. Reference Range HDL <40 mg/dL Low HDL Cholesterol HDL >or= 60 mg/dL High HDL Cholesterol Cholesterol in LDL [Mass/Vol] 80 mg/dL 0-130 [facility] CO2 [Moles/Vol] 26.0 mmol/L 21.0-32.0 [facility] Globulin (S) [Mass/Vol] 3.8 g/dL 2.2-4.2 [facility] Urea nitrogen/Creatinine [Mass ratio] 10.9 mg/mg 10-20 [facility] Laboratory - Hematology and Cell countson 05-06-2023 HbA1c (Bld) [Mass fraction] 8.9 % [facility] Mucus LM Ql (Urine sed)Order ed By: Kandice Zambrano on 05-06-2023 Mucus Ql (Urine sed) 0 SEEN /hpf [facility] Nitrite Test strip Ql (U)Ord ered By: Kandice Zambrano on 05-06-2023 Nitrite Ql (U) Negative Negative [facility] No Panel InformationOrdered By: Kandice Zambrano on 05-06-2023 Estimated GFR (MDRD) Amer 53 mL/min >60 [facility] Comment on above: GFR Calc Estimated GFR (MDRD) Non-Af Amer 44 mL/min >60 [facility] Comment on above: Non- GFR Calc Urine Microalbumin/Creatinine Ratio 19.5 mg/g CRE <30 [facility] Urine RBC 0 SEEN /hpf 0-5 [facility] Vitamin D 25-Hydroxy 36.0 ng/mL [facility] Comment on above: Vitamin D 25(OH) Sta tus Range Deficiency <20 ng/mL (50nmol/L) Insufficiency 20 - 30 ng/mL (50 - 75 nmol/L) Sufficiency 30 - 100 ng/mL (75 - 250 nmol/L) Toxicity >100 ng/mL (>250 nmol/L) VLDL Cholesterol 26 mg/dL 5-40 [facility] Protein Test strip Ql (U)Ord ered By: Kandice Zambrano on 05-06-2023 Protein Ql (U) Negative Negative [facility] Serum or plasma calcium bernardino urement (mass/volume)Ordered By: Kandice Zambrano on 05-06-2023 Calcium [Mass/Vol] 8.8 mg/dL 8.5-10.1 [facility] Serum or plasma creatinine m easurement (mass/volume)Ordered By: Kandice Zambrano on 05-06-2023 Creatinine [Mass/Vol] 1.28 mg/dL 0.55-1.02 [facility] Comment on above: The validity of the calculated GFR & GFRAA in patients over 70 years has not been determined. Clinical correlation is essential. Serum or plasma thyroid stim ulating hormone (TSH) measurement (units/volume)Ordered By: Kandice Zambrano on 05-06-2023 TSH Qn 1.80 uIU/mL 0.358-3.74 [facility] Serum or plasma urea nitroge n measurement (mass/volume)Ordered By: Kandice Zambrano on 05-06-2023 Urea nitrogen [Mass/Vol] 14 mg/dL 7-18 [facility] Squamous epithelial cells de tection in urine sediment by light microscopyOrdered By: Kandice Zambrano on 05-06-2023 Epithelial cells.squamous LM Ql (Urine sed) 0 SEEN /hpf 5-10 [facility] Thin prep Papanicolaou smear with manual screeningOrdered By: Kandice Zambrano on 05-06-2023 Thin prep Papanicolaou smear with manual screening 3.2 g/dL 3.2-5.0 [facility] Thin prep Papanicolaou smear with manual screening 28 U/L 15-37 [facility] Thin prep Papanicolaou smear with manual screening 4 5-15 [facility] Thin prep Papanicolaou smear with manual screening 20.7 mg/L NO RANGE EST. [facility] Thin prep Papanicolaou smear with manual screening 1.28 ng/dL 0.76-1.46 [facility] Urine blood detectionOrdered By: Kandice Zambrano on 05-06-2023 RBC Ql (U) Negative Negative [facility] Urine clarityOrdered By: Radha Zambrano on 05-06-2023 Clarity (U) Cloudy Clear [facility] Urine color determinationOrd ered By: Kandice Zambrano on 05-06-2023 Color (U) Yellow Yellow [facility] Urine creatinine measurement (mass/volume)Ordered By: Kandice Zambrano on 05-06-2023 Creatinine (U) [Mass/Vol] 106.00 mg/dL NO RANGE EST. [facility] Urine glucose detectionOrder ed By: Kandice Zambrano on 05-06-2023 Glucose Ql (U) 250 mg/dl Normal [facility] Urine leukocyte esterase det ection by dipstickOrdered By: Kandice Zambrano on 05-06-2023 Leukocyte esterase Test strip Ql (U) 25 /ul Negative [facility] Urine pHOrdered By: Kandice cruz on 05-06-2023 pH (U) 6.0 [pH] 5.0 - 8.0 [facility] Urine sediment bacteria coun t by microscopy (number/high power field)Ordered By: Kandice Zambrano on 05-06-2023 Bacteria LM.HPF (Urine sed) [#/Area] 4 /[HPF] None Seen [facility] Urine specific gravity measu rementOrdered By: Kandice Zambrano on 05-06-2023 Specific gravity (U) [Rel density] 1.015 1.002-1.03 0 [facility] Urine urobilinogen measureme ntOrdered By: Kandice Zambrano on 05-06-2023 Urobilinogen Ql (U) Normal mg/dl Normal [facility] Culture, urineOrdered By: Macario Pulido on 03-10-2023 Bacteria identified Cx Nom (U) Mixed Gram Pos & Gram Neg Org [facility] Bacteria identified Cx Nom (U) Mixed Gram Pos & Gram Neg Org [facility] Laboratory - Chemistry and C hemistry - challengeon 03-10-2023 Bilirubin Ql (U) Negative [facility] Glucose Ql (U) Negative [facility] Ketones Ql (U) Negative [facility] pH (U) 7.5 [pH] [facility] Specific gravity (U) [Rel density] 1.010 [facility] Urobilinogen (U) [Mass/Vol] Negative [facility] Laboratory - Hematology and Cell countson 03-10-2023 Hemoglobin Ql (U) Negative [facility] Laboratory - Specimen inform ationon 03-10-2023 Clarity (U) Clear [facility] Color (U) Yellow [facility] Laboratory - Urinalysison Nitrite Ql (U) Negative [facility] Protein Ql (U) Negative [facility] No Panel Informationon 03-10 Urine Leukocytes Positive [facility] Urine Non-Hemolyzed Blood [facility] Absolute lymphocyte countOrd ered By: Mele Small on 12-29-2022 Lymphocytes Auto (Unsp spec) [#/Vol] 2.22 10*3/uL 0.83-4.51 [facility] Basophil percentageOrdered B y: Mele Small on 12-29-2022 Basophil percentage 5-10 SEEN /hpf 0-5 [facility] Basophils/100 WBC (Bld) 0.4 % 0-1 [facility] Chloride [Moles/Vol] 107 mmol/L 98-107 [facility] Eosinophils/100 WBC (Bld) 2.8 % 0-5 [facility] Glucose [Mass/Vol] 213 mg/dL 74-106 [facility] Comment on above: Glucose result great er than or equal to 200 mg/dLsuggests DIABETES MELLITUS per A.D.A. criteria. Neutrophils (Bld) [#/Vol] 5.0 10*3/uL 2.0-7.7 [facility] Neutrophils/100 WBC (Bld) 61.4 % 47-70 [facility] Potassium [Moles/Vol] 4.6 mmol/L 3.5-5.1 [facility] Sodium [Moles/Vol] 138 mmol/L 136-145 [facility] WBC (Bld) [#/Vol] 8.2 10*3/uL 4.4-11.0 [facility] Bilirubin Test strip Ql (U)O rdered By: Mele Small on 12-29-2022 Bilirubin Ql (U) Negative Negative [facility] Blood erythrocytes count (nu mber/volume)Ordered By: Mele Small on 12-29-2022 RBC (Bld) [#/Vol] 4.63 10*6/uL 4.2-5.4 [facility] Blood hemoglobin measurement (mass/volume)Ordered By: Mele Small on 12-29-2022 Hemoglobin (Bld) [Mass/Vol] 11.8 g/dL 12.0-15.0 [facility] Blood lymphocytes/100 leukoc ytesOrdered By: Mele Small on 12-29-2022 Lymphocytes/100 WBC (Bld) 27.2 % 19-41 [facility] Blood monocytes/100 leukocyt esOrdered By: Mele Small on 12-29-2022 Monocytes/100 WBC (Bld) 7.7 % 0-10 [facility] Blood platelet mean volumeOr dered By: Mele Small on 12-29-2022 Platelet mean volume (Bld) [Entitic vol] 9.9 fL 6.2-12.0 [facility] Determination of erythrocyte mean corpuscular volume (MCV)Ordered By: Mele Small on 12-29-2022 MCV (RBC) [Entitic vol] 85.1 fL 81-99 [facility] Hematocrit Auto (Bld) [Volum e fraction]Ordered By: Mele Small on 12-29-2022 Hematocrit (Bld) [Volume fraction] 39.4 % 37-47 [facility] Ketones Test strip Ql (U)Ord ered By: Mele Small on 12-29-2022 Ketones Ql (U) Negative Negative [facility] Laboratory - Chemistry and C hemistry - challengeOrdered By: Mele Small on 12-29-2022 CO2 [Moles/Vol] 28.0 mmol/L 21.0-32.0 [facility] Urea nitrogen/Creatinine [Mass ratio] 10.3 mg/mg 10- [facility] Laboratory - Hematology and Cell countsOrdered By: Mele Small on 12-29-2022 Erythrocyte distribution width (RBC) [Entitic vol] 43.9 fL 35.1-43.9 [facility] Erythrocyte distribution width (RBC) [Ratio] 14.3 % 11.6-14.6 [facility] Immature granulocytes/100 WBC (Bld) 0.500 % 0.0-0.9 [facility] Comment on above: IG% - Immature Granu locytes (promyelocytes, myelocytes and metamyelocytes) > 1% indicates that a LEFT SHIFT is Present. MCH (RBC) [Entitic mass] 25.5 pg 27.0-32.0 [facility] Nucleated RBC/100 WBC (Bld) [Ratio] 0 % 0-5 [facility] MCHC Auto (RBC) [Mass/Vol]Or dered By: Mele Small on 12-29-2022 MCHC (RBC) [Mass/Vol] 29.9 g/dL 32-36 [facility] Mucus LM Ql (Urine sed)Order ed By: Mele Small on 12-29-2022 Mucus Ql (Urine sed) 0 SEEN /hpf [facility] Nitrite Test strip Ql (U)Ord ered By: Mele Small on 12-29-2022 Nitrite Ql (U) Negative Negative [facility] No Panel InformationOrdered By: Mele Small on 12-29-2022 D-Dimer Quantitative (PE/DVT) 0.77 FEU/ug/m 0.27-0.49 [facility] Comment on above: D-Dimer ELEVATED (>0 .49): Additional studies and clinicalassessments are indicated to conclude diagnosis of:Deep Vein Thrombosis (DVT) or Pulmonary Embolism (PE)CRITICAL VALUE VERIFIED. CALLED TO JING OLVE12/29/22 [id number] Amy Larios.RESULTS READ BACK BY SAME . Estimated Creatinine Clearance Calc 33.24 ml/min [facility] Estimated GFR (MDRD) Amer 49 mL/min >60 [facility] Comment on above: GFR Calc Estimated GFR (MDRD) Non-Af Amer 41 mL/min >60 [facility] Comment on above: Non- GFR Calc Troponin I High Sensitivity 8 pg/mL 3.0-54.0 [facility] Comment on above: Please Note: [place] t Units and Gender Specific Reference Ranges. For more information see Policy Stat Procedure Brutus High Sensitivity Troponin (TNIH) and attachments. Platelets bldOrdered By: Kari Small on 12-29-2022 Platelets (Bld) [#/Vol] 287 10*3/uL 150-450 [facility] Protein Test strip Ql (U)Ord ered By: Mele Small on 12-29-2022 Protein Ql (U) 15 mg/dl Negative [facility] Serum or plasma calcium bernardino urement (mass/volume)Ordered By: Mele Small on 12-29-2022 Calcium [Mass/Vol] 9.5 mg/dL 8.5-10.1 [facility] Serum or plasma creatinine m easurement (mass/volume)Ordered By: Mele Small on 12-29-2022 Creatinine [Mass/Vol] 1.36 mg/dL 0.55-1.02 [facility] Comment on above: The validity of the calculated GFR & GFRAA in patients over 70 years has not been determined. Clinical correlation is essential. Serum or plasma urea nitroge n measurement (mass/volume)Ordered By: Mele Small on 12-29-2022 Urea nitrogen [Mass/Vol] 14 mg/dL 7-18 [facility] Squamous epithelial cells de tection in urine sediment by light microscopyOrdered By: Mele Small on 12-29-2022 Epithelial cells.squamous LM Ql (Urine sed) 10-25 SEEN /hpf 5-10 [facility] Thin prep Papanicolaou smear with manual screeningOrdered By: Mele Small on 12-29-2022 Thin prep Papanicolaou smear with manual screening 3 5-15 [facility] Urine blood detectionOrdered By: Mele Small on 12-29-2022 RBC Ql (U) Negative Negative [facility] RBC Ql (U) 0 SEEN /hpf 0-5 [facility] Urine clarityOrdered By: Kari Small on 12-29-2022 Clarity (U) Clear Clear [facility] Urine color determinationOrd ered By: Mele Small on 12-29-2022 Color (U) Yellow Yellow [facility] Urine glucose detectionOrder ed By: Mele Small on 12-29-2022 Glucose Ql (U) 100 mg/dl Normal [facility] Urine leukocyte esterase det ection by dipstickOrdered By: Mele Small on 12-29-2022 Leukocyte esterase Test strip Ql (U) 100 /ul Negative [facility] Urine pHOrdered By: Mele pimentel on 12-29-2022 pH (U) 6.0 [pH] 5.0 - 8.0 [facility] Urine sediment bacteria coun t by microscopy (number/high power field)Ordered By: Mele Small on 12-29-2022 Bacteria LM.HPF (Urine sed) [#/Area] 0 /[HPF] None Seen [facility] Urine specific gravity measu rementOrdered By: Mele Small on 12-29-2022 Specific gravity (U) [Rel density] 1.020 1.002-1.03 0 [facility] Urobilinogen Auto test strip Ql (U)Ordered By: Mele Small on 12-29-2022 Urobilinogen Ql (U) Normal mg/dl Normal [facility] Basophil percentageOrdered B y: Allison Gomez on 12-17-2022 Basophil percentage >100 SEEN /hpf 0-5 [facility] Bilirubin Test strip Ql (U)O rdered By: Allison Gomez on 12-17-2022 Bilirubin Ql (U) Negative Negative [facility] Ketones Test strip Ql (U)Ord ered By: Allison Gomez on 12-17-2022 Ketones Ql (U) 5 mg/dl Negative [facility] Mucus LM Ql (Urine sed)Order ed By: Allison Gomez on 12-17-2022 Mucus Ql (Urine sed) 0 SEEN /hpf [facility] Nitrite Test strip Ql (U)Ord ered By: Allison Gomez on 12-17-2022 Nitrite Ql (U) Positive Negative [facility] Protein Test strip Ql (U)Ord ered By: Allison Gomez on 12-17-2022 Protein Ql (U) 15 mg/dl Negative [facility] Squamous epithelial cells de tection in urine sediment by light microscopyOrdered By: Allison Gomez on 12-17-2022 Epithelial cells.squamous LM Ql (Urine sed) 0-5 SEEN /hpf 5-10 [facility] Urine blood detectionOrdered By: Allison Gomez on 12-17-2022 RBC Ql (U) 10 /ul Negative [facility] RBC Ql (U) 0 SEEN /hpf 0-5 [facility] Urine clarityOrdered By: Brenda Gomez on 12-17-2022 Clarity (U) Sl. Cloudy Clear [facility] Urine color determinationOrd ered By: Allison Gomez on 12-17-2022 Color (U) Yellow Yellow [facility] Urine glucose detectionOrder ed By: Allison Gomez on 12-17-2022 Glucose Ql (U) 100 mg/dl Normal [facility] Urine leukocyte esterase det ection by dipstickOrdered By: Allison Gomez on 12-17-2022 Leukocyte esterase Test strip Ql (U) 500 /ul Negative [facility] Urine pHOrdered By: Allison duffy on 12-17-2022 pH (U) 6.0 [pH] 5.0 - 8.0 [facility] Urine sediment bacteria coun t by microscopy (number/high power field)Ordered By: Allison Gomez on 12-17-2022 Bacteria LM.HPF (Urine sed) [#/Area] 2 /[HPF] None Seen [facility] Urine specific gravity measu rementOrdered By: Allison Gomez on 12-17-2022 Specific gravity (U) [Rel density] 1.020 1.002-1.03 0 [facility] Urobilinogen Auto test strip Ql (U)Ordered By: Allison Gomez on 12-17-2022 Urobilinogen Ql (U) Normal mg/dl Normal [facility] Absolute lymphocyte countOrd ered By: Mele Small on 12-10-2022 Lymphocytes Auto (Unsp spec) [#/Vol] 2.36 10*3/uL 0.83-4.51 [facility] Basophil percentageOrdered B y: Christopher Pulido on 12-10-2022 Basophil percentage 0-5 SEEN /hpf 0-5 [facility] Basophil percentageOrdered B y: Mele Small on 12-10-2022 Basophil percentage 0-5 SEEN /hpf 0-5 [facility] Basophils/100 WBC (Bld) 0.4 % 0-1 [facility] Bilirubin [Mass/Vol] 0.20 mg/dL 0.20-1.00 [facility] Comment on above: For patients on eltr ombopag therapy, use of Dimension Brutus TBIL is not recommended. Chloride [Moles/Vol] 105 mmol/L 98-107 [facility] Eosinophils/100 WBC (Bld) 1.9 % 0-5 [facility] Glucose [Mass/Vol] 243 mg/dL 74-106 [facility] Comment on above: Glucose result great er than or equal to 200 mg/dLsuggests DIABETES MELLITUS per A.D.A. criteria. Neutrophils (Bld) [#/Vol] 5.7 10*3/uL 2.0-7.7 [facility] Neutrophils/100 WBC (Bld) 63.8 % 47-70 [facility] Potassium [Moles/Vol] 4.2 mmol/L 3.5-5.1 [facility] Protein [Mass/Vol] 6.9 g/dL 6.4-8.2 [facility] Sodium [Moles/Vol] 137 mmol/L 136-145 [facility] WBC (Bld) [#/Vol] 9.0 10*3/uL 4.4-11.0 [facility] Bilirubin Test strip Ql (U)O rdered By: Christopher Pulido on 12-10-2022 Bilirubin Ql (U) Negative Negative [facility] Bilirubin Test strip Ql (U)O rdered By: Mele Small on 12-10-2022 Bilirubin Ql (U) Negative Negative [facility] Blood erythrocytes count (nu mber/volume)Ordered By: Mele Small on 12-10-2022 RBC (Bld) [#/Vol] 4.38 10*6/uL 4.2-5.4 [facility] Blood hemoglobin measurement (mass/volume)Ordered By: Mele Small on 12-10-2022 Hemoglobin (Bld) [Mass/Vol] 11.4 g/dL 12.0-15.0 [facility] Blood lymphocytes/100 leukoc ytesOrdered By: Mele Small on 12-10-2022 Lymphocytes/100 WBC (Bld) 26.2 % 19-41 [facility] Blood monocytes/100 leukocyt esOrdered By: Mele Small on 12-10-2022 Monocytes/100 WBC (Bld) 7.1 % 0-10 [facility] Blood platelet adequacy dete ction by light microscopyOrdered By: Mele Small on 12-10-2022 Platelets LM Ql (Bld) ADEQUATE ADEQ [facility] Blood platelet mean volumeOr dered By: Mele Small on 12-10-2022 Platelet mean volume (Bld) [Entitic vol] 10.4 fL 6.2-12.0 [facility] Culture, urineOrdered By: Macario Pulido on 12-10-2022 Bacteria identified Cx Nom (U) Klebsiella pneumoniae sp pneum [facility] Bacteria identified Cx Nom (U) Klebsiella pneumoniae sp pneum [facility] Determination of erythrocyte mean corpuscular volume (MCV)Ordered By: Mele Small on 12-10-2022 MCV (RBC) [Entitic vol] 96.6 fL 81-99 [facility] Hematocrit Auto (Bld) [Volum e fraction]Ordered By: Mele Small on 12-10-2022 Hematocrit (Bld) [Volume fraction] 42.3 % 37-47 [facility] Ketones Test strip Ql (U)Ord ered By: Christopher Pulido on 12-10-2022 Ketones Ql (U) Negative Negative [facility] Ketones Test strip Ql (U)Ord ered By: Meel Small on 12-10-2022 Ketones Ql (U) Negative Negative [facility] Laboratory - Chemistry and C hemistry - challengeOrdered By: Mele Small on 12-10-2022 ALP [Catalytic activity/Vol] 76 U/L 45-117 [facility] ALT [Catalytic activity/Vol] 28 U/L 13-56 [facility] CO2 [Moles/Vol] 27.0 mmol/L 21.0-32.0 [facility] Globulin (S) [Mass/Vol] 3.9 g/dL 2.2-4.2 [facility] Lipase [Catalytic activity/Vol] 63 U/L 13-75 [facility] Comment on above: Please note:LIPASE r evised reference range effective 22. New Lipase methodology. Expected to produce lower values than the previous assay method. NEW Reference Range: 13 - 75 U/L Urea nitrogen/Creatinine [Mass ratio] 15.7 mg/mg 10-20 [facility] Laboratory - Chemistry and C hemistry - challengeon 12-10-2022 Bilirubin Ql (U) Negative [facility] Glucose Ql (U) Negative [facility] Ketones Ql (U) Negative [facility] pH (U) 6.5 [pH] [facility] Specific gravity (U) [Rel density] 1.020 [facility] Urobilinogen (U) [Mass/Vol] Negative [facility] Laboratory - Hematology and Cell countsOrdered By: Mele Small on 12-10-2022 Anisocytosis Ql (Bld) 1+ [facility] Erythrocyte distribution width (RBC) [Entitic vol] 51.1 fL 35.1-43.9 [facility] Erythrocyte distribution width (RBC) [Ratio] 14.3 % 11.6-14.6 [facility] Immature granulocytes/100 WBC (Bld) 0.600 % 0.0-0.9 [facility] Comment on above: IG% - Immature Granu locytes (promyelocytes, myelocytes and metamyelocytes) > 1% indicates that a LEFT SHIFT is Present. MCH (RBC) [Entitic mass] 26.0 pg 27.0-32.0 [facility] Nucleated RBC/100 WBC (Bld) [Ratio] 0 % 0-5 [facility] Laboratory - Hematology and Cell countson 12-10-2022 Hemoglobin Ql (U) Negative [facility] Laboratory - Specimen inform ationon 12-10-2022 Clarity (U) Cloudy [facility] Color (U) Yellow [facility] Laboratory - Urinalysison Nitrite Ql (U) Negative [facility] Protein Ql (U) Negative [facility] MCHC Auto (RBC) [Mass/Vol]Or dered By: Mele Small on 12-10-2022 MCHC (RBC) [Mass/Vol] 27.0 g/dL 32-36 [facility] Macrocytes detectionOrdered By: Mele Small on 12-10-2022 Mac[facility]Bld) [facility] Ql (Urine sed)Order ed By: Christopher Pulido on 12-10-2022 Mucus Ql (Urine sed) 0 SEEN /hpf [facility] Mucus LM Ql (Urine sed)Order ed By: Mele Small on 12-10-2022 Mucus Ql (Urine sed) 0 SEEN /hpf [facility] Nitrite Test strip Ql (U)Ord ered By: Christopher Pulido on 12-10-2022 Nitrite Ql (U) Negative Negative [facility] Nitrite Test strip Ql (U)Ord ered By: Mele Small on 12-10-2022 Nitrite Ql (U) Negative Negative [facility] No Panel InformationOrdered By: Mele Small on 12-10-2022 Estimated Creatinine Clearance Calc 36.10 ml/min [facility] Estimated GFR (MDRD) Amer 54 mL/min >60 [facility] Comment on above: GFR Calc Estimated GFR (MDRD) Non-Af Amer 44 mL/min >60 [facility] Comment on above: Non- GFR Calc No Panel Informationon 12-10 Urine Leukocytes Negatve [facility] Urine Non-Hemolyzed Blood [facility] Ovalocyte detectionOrdered B y: Mele Small on 12-10-2022 Ovalocytes LM Ql (Bld) RARE [facility] Platelets bldOrdered By: Kari Small on 12-10-2022 Platelets (Bld) [#/Vol] 243 10*3/uL 150-450 [facility] Protein Test strip Ql (U)Ord ered By: Christopher Pulido on 12-10-2022 Protein Ql (U) 15 mg/dl Negative [facility] Protein Test strip Ql (U)Ord ered By: Mele Small on 12-10-2022 Protein Ql (U) Negative Negative [facility] RBC morphologyOrdered By: Baltazar Small on 12-10-2022 RBC morphology finding Nom (Bld) N CHROM NORMAL NORM C&C [facility] Serum or plasma albumin bernardino urement (mass/volume)Ordered By: Mele Small on 12-10-2022 Albumin [Mass/Vol] 3.0 g/dL 3.2-5.0 [facility] Serum or plasma albumin/glob ulin mass ratioOrdered By: Mele Small on 12-10-2022 Albumin/Globulin [Mass ratio] 0.8 {ratio} 0.9-2.4 [facility] Serum or plasma calcium bernardino urement (mass/volume)Ordered By: Mele Small on 12-10-2022 Calcium [Mass/Vol] 9.1 mg/dL 8.5-10.1 [facility] Serum or plasma creatinine m easurement (mass/volume)Ordered By: Mele Small on 12-10-2022 Creatinine [Mass/Vol] 1.27 mg/dL 0.55-1.02 [facility] Comment on above: The validity of the calculated GFR & GFRAA in patients over 70 years has not been determined. Clinical correlation is essential. Serum or plasma urea nitroge n measurement (mass/volume)Ordered By: Mele Small on 12-10-2022 Urea nitrogen [Mass/Vol] 20 mg/dL 7-18 [facility] Squamous epithelial cells de tection in urine sediment by light microscopyOrdered By: Christopher Pulido on 12-10-2022 Epithelial cells.squamous LM Ql (Urine sed) 0 SEEN /hpf 5-10 [facility] Squamous epithelial cells de tection in urine sediment by light microscopyOrdered By: Mele Small on 12-10-2022 Epithelial cells.squamous LM Ql (Urine sed) 0-5 SEEN /hpf 5-10 [facility] Thin prep Papanicolaou smear with manual screeningOrdered By: Mele Small on 12-10-2022 Thin prep Papanicolaou smear with manual screening 24 U/L 15-37 [facility] Thin prep Papanicolaou smear with manual screening 5 5-15 [facility] Urine blood detectionOrdered By: Christopher Pulido on 12-10-2022 RBC Ql (U) Negative Negative [facility] RBC Ql (U) 0 SEEN /hpf 0-5 [facility] Urine blood detectionOrdered By: Mele Small on 12-10-2022 RBC Ql (U) Negative Negative [facility] RBC Ql (U) 0 SEEN /hpf 0-5 [facility] Urine clarityOrdered By: Dipak Pulido on 12-10-2022 Clarity (U) Clear Clear [facility] Urine clarityOrdered By: Kari Small on 12-10-2022 Clarity (U) Clear Clear [facility] Urine color determinationOrd ered By: Christopher Pulido on 12-10-2022 Color (U) Yellow Yellow [facility] Urine color determinationOrd ered By: Mele Small on 12-10-2022 Color (U) Yellow Yellow [facility] Urine glucose detectionOrder ed By: Christopher Pulido on 12-10-2022 Glucose Ql (U) 100 mg/dl Normal [facility] Urine glucose detectionOrder ed By: Mele Small on 12-10-2022 Glucose Ql (U) 250 mg/dl Normal [facility] Urine leukocyte esterase det ection by dipstickOrdered By: Christopher Pulido on 12-10-2022 Leukocyte esterase Test strip Ql (U) 25 /ul Negative [facility] Urine leukocyte esterase det ection by dipstickOrdered By: Mele Small on 12-10-2022 Leukocyte esterase Test strip Ql (U) 25 /ul Negative [facility] Urine pHOrdered By: Christopher fountain on 12-10-2022 pH (U) 6.0 [pH] 5.0 - 8.0 [facility] Urine pHOrdered By: Mele pimentel on 12-10-2022 pH (U) 6.5 [pH] 5.0 - 8.0 [facility] Urine sediment bacteria coun t by microscopy (number/high power field)Ordered By: Christopher Pulido on 12-10-2022 Bacteria LM.HPF (Urine sed) [#/Area] 1 /[HPF] None Seen [facility] Urine sediment bacteria coun t by microscopy (number/high power field)Ordered By: Mele Small on 12-10-2022 Bacteria LM.HPF (Urine sed) [#/Area] 1 /[HPF] None Seen [facility] Urine specific gravity measu rementOrdered By: Christopher Pulido on 12-10-2022 Specific gravity (U) [Rel density] 1.015 1.002-1.03 0 [facility] Urine specific gravity measu rementOrdered By: Mele Small on 12-10-2022 Specific gravity (U) [Rel density] 1.015 1.002-1.03 0 [facility] Urobilinogen Auto test strip Ql (U)Ordered By: Christopher Pulido on 12-10-2022 Urobilinogen Ql (U) Normal mg/dl Normal [facility] Urobilinogen Auto test strip Ql (U)Ordered By: Mele Small on 12-10-2022 Urobilinogen Ql (U) Normal mg/dl Normal [facility] Laboratory - Hematology and Cell countson 11-26-2022 HbA1c (Bld) [Mass fraction] 9.7 % 4.2-6.3 [facility] Basophil percentageOrdered B y: Branden Jurado on 10-26-2022 Bilirubin [Mass/Vol] 0.20 mg/dL 0.20-1.00 [facility] Comment on above: For patients on eltr ombopag therapy, use of Dimension Brutus TBIL is not recommended. Chloride [Moles/Vol] 105 mmol/L 98-107 [facility] Glucose [Mass/Vol] 232 mg/dL 74-106 [facility] Comment on above: Glucose result great er than or equal to 200 mg/dLsuggests DIABETES MELLITUS per A.D.A. criteria. Potassium [Moles/Vol] 4.3 mmol/L 3.5-5.1 [facility] Protein [Mass/Vol] 7.0 g/dL 6.4-8.2 [facility] Sodium [Moles/Vol] 137 mmol/L 136-145 [facility] Laboratory - Chemistry and C hemistry - challengeOrdered By: Branden Jurado on 10-26-2022 ALP [Catalytic activity/Vol] 74 U/L 45-117 [facility] ALT [Catalytic activity/Vol] 34 U/L 13-56 [facility] CO2 [Moles/Vol] 28.0 mmol/L 21.0-32.0 [facility] Globulin (S) [Mass/Vol] 3.8 g/dL 2.2-4.2 [facility] Urea nitrogen/Creatinine [Mass ratio] 13.4 mg/mg 10-20 [facility] Laboratory - Chemistry and C hemistry - challengeOrdered By: Allison Gomez on 10-26-2022 Free T4 [Mass/Vol] 1.61 ng/dL 0.76-1.46 [facility] No Panel InformationOrdered By: Branden Jurado on 10-26-2022 Estimated GFR (MDRD) Amer 54 mL/min >60 [facility] Comment on above: GFR Calc Estimated GFR (MDRD) Non-Af Amer 44 mL/min >60 [facility] Comment on above: Non- GFR Calc No Panel InformationOrdered By: Allison Gomez on 10-26-2022 Free Triiodothyronine (T3) pg/dL 2.0 pg/mL 2.18-3.98 [facility] Thyroid Stimulating Hormone (TSH) 3.02 uIU/mL 0.358-3.74 [facility] Serum or plasma albumin bernardino urement (mass/volume)Ordered By: Branden Jurado on 10-26-2022 Albumin [Mass/Vol] 3.2 g/dL 3.2-5.0 [facility] Serum or plasma albumin/glob ulin mass ratioOrdered By: Branden Jurado on 10-26-2022 Albumin/Globulin [Mass ratio] 0.8 {ratio} 0.9-2.4 [facility] Serum or plasma calcium bernardino urement (mass/volume)Ordered By: Branden Jurado on 10-26-2022 Calcium [Mass/Vol] 9.2 mg/dL 8.5-10.1 [facility] Serum or plasma creatinine m easurement (mass/volume)Ordered By: Branden Jurado on 10-26-2022 Creatinine [Mass/Vol] 1.27 mg/dL 0.55-1.02 [facility] Comment on above: The validity of the calculated GFR & GFRAA in patients over 70 years has not been determined. Clinical correlation is essential. Serum or plasma urea nitroge n measurement (mass/volume)Ordered By: Branden Jurado on 10-26-2022 Urea nitrogen [Mass/Vol] 17 mg/dL 7-18 [facility] Thin prep Papanicolaou smear with manual screeningOrdered By: Branden Jurado on 10-26-2022 Thin prep Papanicolaou smear with manual screening 24 U/L 15-37 [facility] Thin prep Papanicolaou smear with manual screening 4 5-15 [facility] Culture, urineon 09-02-2022 Bacteria identified Cx Nom (U) Klebsiella pneumoniae sp pneum [facility] Amorphous sediment detection in urine sediment by light microscopyon 08-31-2022 Amorphous sediment LM Ql (Urine sed) 1+ PHOS [facility] Basophil percentageon 2022 Basophil percentage 50-100 SEEN /hpf 0-5 [facility] Bilirubin Test strip Ql (U)o n 08-31-2022 Bilirubin Ql (U) Negative Negative [facility] Culture, urineon 08-31-2022 Bacteria identified Cx Nom (U) Klebsiella pneumoniae sp pneum [facility] Ketones Test strip Ql (U)on 08-31-2022 Ketones Ql (U) 5 mg/dl Negative [facility] Laboratory - Chemistry and C hemistry - challengeon 08-31-2022 Bilirubin Ql (U) Negative [facility] Glucose Ql (U) Negative [facility] Ketones Ql (U) Negative [facility] pH (U) 6.0 [pH] [facility] Specific gravity (U) [Rel density] 1.010 [facility] Urobilinogen (U) [Mass/Vol] Negative [facility] Laboratory - Hematology and Cell countson 08-31-2022 Hemoglobin Ql (U) Trace [facility] Laboratory - Specimen inform ationon 08-31-2022 Clarity (U) Cloudy [facility] Color (U) YELLOW [facility] Laboratory - Urinalysison Nitrite Ql (U) Positive [facility] Protein Ql (U) Trace [facility] Mucus LM Ql (Urine sed)on Mucus Ql (Urine sed) 0 SEEN /hpf [facility] Nitrite Test strip Ql (U)on 08-31-2022 Nitrite Ql (U) Negative Negative [facility] No Panel Informationon 08-31 Urine Leukocytes Positive [facility] Urine Non-Hemolyzed Blood Non-Hemolyzed [facility] Protein Test strip Ql (U)on 08-31-2022 Protein Ql (U) 30 mg/dl Negative [facility] Squamous epithelial cells de tection in urine sediment by light microscopyon 08-31-2022 Epithelial cells.squamous LM Ql (Urine sed) 0-5 SEEN /hpf 5-10 [facility] Urine blood detectionon 08-13 RBC Ql (U) 10 /ul Negative [facility] RBC Ql (U) 0-5 SEEN /hpf 0-5 [facility] Urine clarityon 08-31-2022 Clarity (U) Cloudy Clear [facility] Urine color determinationon 08-31-2022 Color (U) Yellow Yellow [facility] Urine glucose detectionon Glucose Ql (U) Normal mg/dl Normal [facility] Urine leukocyte esterase det ection by dipstickon 08-31-2022 Leukocyte esterase Test strip Ql (U) 500 /ul Negative [facility] Urine pHon 08-31-2022 pH (U) 7.0 [pH] 5.0 - 8.0 [facility] Urine sediment bacteria coun t by microscopy (number/high power field)on 08-31-2022 Bacteria LM.HPF (Urine sed) [#/Area] 2 /[HPF] None Seen [facility] Urine specific gravity measu rementon 08-31-2022 Specific gravity (U) [Rel density] 1.010 1.002-1.03 0 [facility] Urobilinogen Auto test strip Ql (U)on 08-31-2022 Urobilinogen Ql (U) Normal mg/dl Normal [facility] Culture, urineOrdered By: Dr Crystal Jurado on 06-25-2022 Bacteria identified Cx Nom (U) Mixed Gram Pos & Gram Neg Org [facility] Basophil percentageOrdered B y: Dr. Jurado on 06-24-2022 Basophil percentage 25-50 SEEN /hpf 0-5 [facility] Bilirubin Test strip Ql (U)O rdered By: Dr. Jurado on 06-24-2022 Bilirubin Ql (U) Negative Negative [facility] Ketones Test strip Ql (U)Ord ered By: Dr. Jurado on 06-24-2022 Ketones Ql (U) 5 mg/dl Negative [facility] Mucus LM Ql (Urine sed)Order ed By: Dr. Jurado on 06-24-2022 Mucus Ql (Urine sed) 0 SEEN /hpf [facility] Nitrite Test strip Ql (U)Ord ered By: Dr. Jurado on 06-24-2022 Nitrite Ql (U) Positive Negative [facility] Protein Test strip Ql (U)Ord ered By: Dr. Jurado on 06-24-2022 Protein Ql (U) 30 mg/dl Negative [facility] Squamous epithelial cells de tection in urine sediment by light microscopyOrdered By: Dr. Jurado on 06-24-2022 Epithelial cells.squamous LM Ql (Urine sed) 0-5 SEEN /hpf 5-10 [facility] Urine blood detectionOrdered By: Dr. Jurado on 06-24-2022 RBC Ql (U) 10 /ul Negative [facility] RBC Ql (U) 0-5 SEEN /hpf 0-5 [facility] Urine clarityOrdered By: Dr. Jurado on 06-24-2022 Clarity (U) Sl. Cloudy Clear [facility] Urine color determinationOrd ered By: Dr. Jurado on 06-24-2022 Color (U) Yellow Yellow [facility] Urine glucose detectionOrder ed By: Dr. Jurado on 06-24-2022 Glucose Ql (U) 100 mg/dl Normal [facility] Urine leukocyte esterase det ection by dipstickOrdered By: Dr. Jurado on 06-24-2022 Leukocyte esterase Test strip Ql (U) 500 /ul Negative [facility] Urine pHOrdered By: Dr. Jurado on 06-24-2022 pH (U) 5.0 [pH] 5.0 - 8.0 [facility] Urine sediment bacteria coun t by microscopy (number/high power field)Ordered By: Dr. Jurado on 06-24-2022 Bacteria LM.HPF (Urine sed) [#/Area] 2 /[HPF] None Seen [facility] Urine specific gravity measu rementOrdered By: Dr. Jurado on 06-24-2022 Specific gravity (U) [Rel density] 1.020 1.002-1.03 0 [facility] Urobilinogen Auto test strip Ql (U)Ordered By: Dr. Jurado on 06-24-2022 Urobilinogen Ql (U) Normal mg/dl Normal [facility] Absolute lymphocyte countOrd ered By: Dr. Gomez on 05-04-2022 Lymphocytes Auto (Unsp spec) [#/Vol] 2.47 10*3/uL 0.83-4.51 [facility] Basophil percentageOrdered B y: Dr. Gomez on 05-04-2022 Basophils/100 WBC (Bld) 0.5 % 0-1 [facility] Bilirubin [Mass/Vol] 0.30 mg/dL 0.20-1.00 [facility] Comment on above: For patients on eltr ombopag therapy, use of Dimension Brutus TBIL is not recommended. Chloride [Moles/Vol] 107 mmol/L 98-107 [facility] Cholesterol [Mass/Vol] 143 mg/dL <200 [facility] Comment on above: <200 mg/dL Desirable 200-240 mg/dL Borderline >240 mg/dL High Risk Eosinophils/100 WBC (Bld) 2.3 % 0-5 [facility] Glucose [Mass/Vol] 153 mg/dL 74-106 [facility] Comment on above: Fasting Glucose resu lt greater than or equal to 126 mg/dL suggests DIABETES MELLITUS per A.D.A. criteria. Neutrophils (Bld) [#/Vol] 6.2 10*3/uL 2.0-7.7 [facility] Neutrophils/100 WBC (Bld) 63.0 % 47-70 [facility] Potassium [Moles/Vol] 4.3 mmol/L 3.5-5.1 [facility] Protein [Mass/Vol] 7.3 g/dL 6.4-8.2 [facility] Sodium [Moles/Vol] 140 mmol/L 136-145 [facility] Triglyceride [Mass/Vol] 87 mg/dL <199 [facility] Comment on above: The drugs N-Acetylcy steine and Metamizole may falsely depress this assay.Serum Triglycerides Reference Interval Normal <150 mg/dL Borderline high 150 - 199 mg/dL High 200 - 499 mg/dL Very High > or = 500 mg/dL WBC (Bld) [#/Vol] 9.8 10*3/uL 4.4-11.0 [facility] Blood erythrocytes count (nu mber/volume)Ordered By: Dr. Gomez on 05-04-2022 RBC (Bld) [#/Vol] 4.91 10*6/uL 4.2-5.4 [facility] Blood hemoglobin measurement (mass/volume)Ordered By: Dr. Gomez on 05-04-2022 Hemoglobin (Bld) [Mass/Vol] 12.6 g/dL 12.0-15.0 [facility] Blood lymphocytes/100 leukoc ytesOrdered By: Dr. Gomez on 05-04-2022 Lymphocytes/100 WBC (Bld) 25.3 % 19-41 [facility] Blood monocytes/100 leukocyt esOrdered By: Dr. Gomez on 05-04-2022 Monocytes/100 WBC (Bld) 8.4 % 0-10 [facility] Blood platelet mean volumeOr dered By: Dr. Gomez on 05-04-2022 Platelet mean volume (Bld) [Entitic vol] 10.3 fL 6.2-12.0 [facility] Determination of erythrocyte mean corpuscular volume (MCV)Ordered By: Dr. Gomez on 05-04-2022 MCV (RBC) [Entitic vol] 85.3 fL 81-99 [facility] Hematocrit Auto (Bld) [Volum e fraction]Ordered By: Dr. Gomez on 05-04-2022 Hematocrit (Bld) [Volume fraction] 41.9 % 37-47 [facility] Laboratory - Chemistry and C hemistry - challengeOrdered By: Dr. Gomez on 05-04-2022 ALP [Catalytic activity/Vol] 84 U/L 45-117 [facility] ALT [Catalytic activity/Vol] 33 U/L 13-56 [facility] CO2 [Moles/Vol] 29.0 mmol/L 21.0-32.0 [facility] Free T4 [Mass/Vol] 1.56 ng/dL 0.76-1.46 [facility] Globulin (S) [Mass/Vol] 4.1 g/dL 2.2-4.2 [facility] Urea nitrogen/Creatinine [Mass ratio] 14.3 mg/mg 10-20 [facility] Laboratory - Hematology and Cell countsOrdered By: Dr. Gomez on 05-04-2022 Erythrocyte distribution width (RBC) [Entitic vol] 43.9 fL 35.1-43.9 [facility] Erythrocyte distribution width (RBC) [Ratio] 14.2 % 11.6-14.6 [facility] Immature granulocytes/100 WBC (Bld) 0.500 % 0.0-0.9 [facility] Comment on above: IG% - Immature Granu locytes (promyelocytes, myelocytes and metamyelocytes) > 1% indicates that a LEFT SHIFT is Present. MCH (RBC) [Entitic mass] 25.7 pg 27.0-32.0 [facility] Nucleated RBC/100 WBC (Bld) [Ratio] 0 % 0-5 [facility] Laboratory - Hematology and Cell countson 05-04-2022 HbA1c (Bld) [Mass fraction] 8.5 % 4.2-6.3 [facility] MCHC Auto (RBC) [Mass/Vol]Or dered By: Dr. Gomez on 05-04-2022 MCHC (RBC) [Mass/Vol] 30.1 g/dL 32-36 [facility] No Panel InformationOrdered By: Dr. Gomez on 05-04-2022 Estimated GFR (MDRD) Amer 54 mL/min >60 [facility] Comment on above: GFR Calc Estimated GFR (MDRD) Non-Af Amer 45 mL/min >60 [facility] Comment on above: Non- GFR Calc Free Triiodothyronine (T3) pg/dL 2.0 pg/mL 2.18-3.98 [facility] Thyroid Stimulating Hormone (TSH) 0.13 uIU/mL 0.358-3.74 [facility] Vitamin D 25-Hydroxy 21.3 ng/mL [facility] Comment on above: Vitamin D 25(OH) Sta tus Range Deficiency <20 ng/mL (50nmol/L) Insufficiency 20 - 30 ng/mL (50 - 75 nmol/L) Sufficiency 30 - 100 ng/mL (75 - 250 nmol/L) Toxicity >100 ng/mL (>250 nmol/L) Platelets bldOrdered By: Dr. Gomez on 05-04-2022 Platelets (Bld) [#/Vol] 280 10*3/uL 150-450 [facility] Serum or plasma albumin bernardino urement (mass/volume)Ordered By: Dr. Gomez on 05-04-2022 Albumin [Mass/Vol] 3.2 g/dL 3.2-5.0 [facility] Serum or plasma albumin/glob ulin mass ratioOrdered By: Dr. Gomez on 05-04-2022 Albumin/Globulin [Mass ratio] 0.8 {ratio} 0.9-2.4 [facility] Serum or plasma calcium bernardino urement (mass/volume)Ordered By: Dr. Gomez on 05-04-2022 Calcium [Mass/Vol] 8.9 mg/dL 8.5-10.1 [facility] Serum or plasma cholesterol in HDL measurement (mass/volume)Ordered By: Dr. Gomez on 05-04-2022 Cholesterol in HDL [Mass/Vol] 47 mg/dL >40 [facility] Comment on above: The drugs N-Acetylcy steine and Metamizole may falsely depress this assay. Reference Range HDL <40 mg/dL Low HDL Cholesterol HDL >or= 60 mg/dL High HDL Cholesterol Serum or plasma cholesterol in VLDL measurement (mass/volume)Ordered By: Dr. Gomez on 05-04-2022 Cholesterol in VLDL [Mass/Vol] 17 mg/dL 5-40 [facility] Serum or plasma creatinine m easurement (mass/volume)Ordered By: Dr. Gomez on 05-04-2022 Creatinine [Mass/Vol] 1.26 mg/dL 0.55-1.02 [facility] Comment on above: The validity of the calculated GFR & GFRAA in patients over 70 years has not been determined. Clinical correlation is essential. Serum or plasma low density lipoprotein (LDL) cholesterol measurement (mass/volume)Ordered By: Dr. Gomez on 05-04-2022 Cholesterol in LDL [Mass/Vol] 79 mg/dL 0-130 [facility] Serum or plasma urea nitroge n measurement (mass/volume)Ordered By: Dr. Gomez on 05-04-2022 Urea nitrogen [Mass/Vol] 18 mg/dL 7-18 [facility] Thin prep Papanicolaou smear with manual screeningOrdered By: Dr. Gomez on 05-04-2022 Thin prep Papanicolaou smear with manual screening 26 U/L 15-37 [facility] Thin prep Papanicolaou smear with manual screening 4 5-15 [facility] Whole blood hemoglobin A1c/t otal hemoglobin ratio (mass fraction)Ordered By: Dr. Gomez on 05-04-2022 HbA1c (Bld) [Mass fraction] 8.9 % 3.8-5.6 [facility] Comment on above: Normal < 5.7 % Predi abetic 5.7 - 6.4 % Diabetic >or= 6.5 % Please note range changes. Laboratory - Chemistry and C hemistry - challengeOrdered By: Dr. Gomez on 04-06-2022 Free T4 [Mass/Vol] 1.54 ng/dL 0.76-1.46 [facility] No Panel InformationOrdered By: Dr. Gomez on 04-06-2022 Free Triiodothyronine (T3) pg/dL 2.1 pg/mL 2.18-3.98 [facility] Thyroid Stimulating Hormone (TSH) 0.07 uIU/mL 0.358-3.74 [facility] Laboratory - Hematology and Cell countson 02-09-2022 HbA1c (Bld) [Mass fraction] 8.4 % 4.2-6.3 [facility] Laboratory - Chemistry and C hemistry - challengeOrdered By: Dr. Gomez on 02-02-2022 Free T4 [Mass/Vol] 1.72 ng/dL 0.76-1.46 [facility] No Panel InformationOrdered By: Dr. Gomez on 02-02-2022 Free Triiodothyronine (T3) pg/dL 2.2 pg/mL 2.18-3.98 [facility] Thyroid Stimulating Hormone (TSH) 0.02 uIU/mL 0.358-3.74 [facility] Glucose Glucometer (BldC) [M ass/Vol]on 12-02-2021 Glucose [Mass/Vol] 85 mg/dL 74-106 [facility] Work Phone: Comment on above: MANAGEMENT OF PATIEN T CARE PER NURSING PROTOCOL Laboratory - Chemistry and C hemistry - challengeon 10-27-2021 Free T4 [Mass/Vol] 1.78 ng/dL 0.76-1.46 [facility] Work Phone: No Panel Informationon 10-27 Free Triiodothyronine (T3) pg/dL 2.0 pg/mL 2.18-3.98 [facility] Work Phone: Thyroid Stimulating Hormone (TSH) 0.02 uIU/mL 0.358-3.74 [facility] Work Phone: Absolute lymphocyte counton 10-15-2021 Lymphocytes Auto (Unsp spec) [#/Vol] 2.89 10*3/uL 0.83-4.51 [facility] Work Phone: Basophil percentageon 2021 Basophil percentage 0-5 SEEN /hpf 0-5 [facility] Work Phone: Basophils/100 WBC (Bld) 0.4 % 0-1 [facility] Work Phone: Chloride [Moles/Vol] 107 mmol/L 98-107 [facility] Work Phone: Eosinophils/100 WBC (Bld) 1.5 % 0-5 [facility] Work Phone: Glucose [Mass/Vol] 133 mg/dL 74-106 [facility] Work Phone: Comment on above: Fasting Glucose resu lt greater than or equal to 126 mg/dL suggests DIABETES MELLITUS per A.D.A. criteria. Neutrophils (Bld) [#/Vol] 9.3 10*3/uL 2.0-7.7 [facility] Work Phone: Neutrophils/100 WBC (Bld) 68.6 % 47-70 [facility] Work Phone: Potassium [Moles/Vol] 3.9 mmol/L 3.5-5.1 [facility] Work Phone: Sodium [Moles/Vol] 139 mmol/L 136-145 [facility] Work Phone: WBC (Bld) [#/Vol] 13.5 10*3/uL 4.4-11.0 [facility] Work Phone: Bilirubin Test strip Ql (U)o n 10-15-2021 Bilirubin Ql (U) Negative Negative [facility] Work Phone: Blood erythrocytes count (nu mber/volume)on 10-15-2021 RBC (Bld) [#/Vol] 4.77 10*6/uL 4.2-5.4 [facility] Work Phone: [phone] Blood hemoglobin measurement (mass/volume)on 10-15-2021 Hemoglobin (Bld) [Mass/Vol] 12.7 g/dL 12.0-15.0 [facility] Work Phone: Blood lymphocytes/100 leukoc yteson 10-15-2021 Lymphocytes/100 WBC (Bld) 21.3 % 19-41 [facility] Work Phone: Blood monocytes/100 leukocyt eson 10-15-2021 Monocytes/100 WBC (Bld) 7.6 % 0-10 [facility] Work Phone: Blood platelet mean volumeon 10-15-2021 Platelet mean volume (Bld) [Entitic vol] 10.6 fL 6.2-12.0 [facility] Work Phone: [phone] Determination of erythrocyte mean corpuscular volume (MCV)on 10-15-2021 MCV (RBC) [Entitic vol] 84.7 fL 81-99 [facility] Work Phone: [phone] Hematocrit Auto (Bld) [Volum e fraction]on 10-15-2021 Hematocrit (Bld) [Volume fraction] 40.4 % 37-47 [facility] Work Phone: [phone] Ketones Test strip Ql (U)on 10-15-2021 Ketones Ql (U) 5 mg/dl Negative [facility] Work Phone: [phone] Laboratory - Chemistry and C hemistry - challengeon 10-15-2021 CO2 [Moles/Vol] 27.0 mmol/L 21.0-32.0 [facility] Work Phone: [phone] Urea nitrogen/Creatinine [Mass ratio] 17.0 mg/mg 10-20 [facility] Work Phone: [phone] Laboratory - Hematology and Cell countson 10-15-2021 Erythrocyte distribution width (RBC) [Entitic vol] 44.1 fL 35.1-43.9 [facility] Work Phone: Erythrocyte distribution width (RBC) [Ratio] 14.4 % 11.6-14.6 [facility] Work Phone: Immature granulocytes/100 WBC (Bld) 0.600 % 0.0-0.9 [facility] Work Phone: Comment on above: IG% - Immature Granu locytes (promyelocytes, myelocytes and metamyelocytes) > 1% indicates that a LEFT SHIFT is Present. MCH (RBC) [Entitic mass] 26.6 pg 27.0-32.0 [facility] Work Phone: Nucleated RBC/100 WBC (Bld) [Ratio] 0 % 0-5 [facility] Work Phone: MCHC Auto (RBC) [Mass/Vol]on 10-15-2021 MCHC (RBC) [Mass/Vol] 31.4 g/dL 32-36 [facility] Work Phone: Mucus LM Ql (Urine sed)on Mucus Ql (Urine sed) 0 SEEN /hpf [facility] Work Phone: Nitrite Test strip Ql (U)on 10-15-2021 Nitrite Ql (U) Negative Negative [facility] Work Phone: No Panel Informationon 10-15 Estimated Creatinine Clearance Calc 31.59 ml/min [facility] Work Phone: Estimated GFR (MDRD) Amer 48 mL/min >60 [facility] Work Phone: Comment on above: GFR Calc Estimated GFR (MDRD) Non-Af Amer 39 mL/min >60 [facility] Work Phone: Comment on above: Non- GFR Calc Platelets bldon 10-15-2021 Platelets (Bld) [#/Vol] 256 10*3/uL 150-450 [facility] Work Phone: Protein Test strip Ql (U)on 10-15-2021 Protein Ql (U) Negative Negative [facility] Work Phone: Serum or plasma acetone bernardino urement (mass/volume)on 10-15-2021 Acetone [Mass/Vol] Negative [facility] Work Phone: Serum or plasma calcium bernardino urement (mass/volume)on 10-15-2021 Calcium [Mass/Vol] 9.5 mg/dL 8.5-10.1 [facility] Work Phone: Serum or plasma creatinine m easurement (mass/volume)on 10-15-2021 Creatinine [Mass/Vol] 1.41 mg/dL 0.55-1.02 [facility] Work Phone: Comment on above: The validity of the calculated GFR & GFRAA in patients over 70 years has not been determined. Clinical correlation is essential. Serum or plasma urea nitroge n measurement (mass/volume)on 10-15-2021 Urea nitrogen [Mass/Vol] 24 mg/dL 7-18 [facility] Work Phone: Squamous epithelial cells de tection in urine sediment by light microscopyon 10-15-2021 Epithelial cells.squamous LM Ql (Urine sed) 0 SEEN /hpf 5-10 [facility] Work Phone: Thin prep Papanicolaou smear with manual screeningon 10-15-2021 Thin prep Papanicolaou smear with manual screening 5 5-15 [facility] Work Phone: Urine blood detectionon 08- RBC Ql (U) Negative Negative [facility] Work Phone: RBC Ql (U) 0 SEEN /hpf 0-5 [facility] Work Phone: Urine clarityon 10-15-2021 Clarity (U) Clear Clear [facility] Work Phone: Urine color determinationon 10-15-2021 Color (U) Yellow Yellow [facility] Work Phone: Urine glucose detectionon Glucose Ql (U) Normal mg/dl Normal [facility] Work Phone: Urine leukocyte esterase det ection by dipstickon 10-15-2021 Leukocyte esterase Test strip Ql (U) Negative Negative [facility] Work Phone: [phone] Urine pHon 10-15-2021 pH (U) 5.0 [pH] 5.0 - 8.0 [facility] Work Phone: Urine sediment bacteria coun t by microscopy (number/high power field)on 10-15-2021 Bacteria LM.HPF (Urine sed) [#/Area] 0 /[HPF] None Seen [facility] Work Phone: Urine specific gravity measu rementon 10-15-2021 Specific gravity (U) [Rel density] 1.020 1.002-1.03 0 [facility] Work Phone: Urobilinogen Auto test strip Ql (U)on 10-15-2021 Urobilinogen Ql (U) Normal mg/dl Normal [facility] Work Phone: Absolute lymphocyte counton 10-13-2021 Lymphocytes Auto (Unsp spec) [#/Vol] 2.01 10*3/uL 0.83-4.51 [facility] Work Phone: Basophil percentageon 2021 Basophil percentage 0 SEEN /hpf 0-5 [facility] Work Phone: Basophils/100 WBC (Bld) 0.5 % 0-1 [facility] Work Phone: Bilirubin [Mass/Vol] 0.20 mg/dL 0.20-1.00 [facility] Work Phone: Comment on above: For patients on eltr ombopag therapy, use of Dimension Brutus TBIL is not recommended. Chloride [Moles/Vol] 105 mmol/L 98-107 [facility] Work Phone: Cholesterol [Mass/Vol] 148 mg/dL <200 [facility] Work Phone: Comment on above: <200 mg/dL Desirable 200-240 mg/dL Borderline >240 mg/dL High Risk Eosinophils/100 WBC (Bld) 2.0 % 0-5 [facility] Work Phone: Glucose [Mass/Vol] 355 mg/dL 74-106 [facility] Work Phone: Comment on above: Glucose result great er than or equal to 200 mg/dLsuggests DIABETES MELLITUS per A.D.A. criteria. Neutrophils (Bld) [#/Vol] 5.2 10*3/uL 2.0-7.7 [facility] Work Phone: [phone] Neutrophils/100 WBC (Bld) 63.9 % 47-70 [facility] Work Phone: [phone] Potassium [Moles/Vol] 4.4 mmol/L 3.5-5.1 [facility] Work Phone: [phone] Protein [Mass/Vol] 7.0 g/dL 6.4-8.2 [facility] Work Phone: [phone] Sodium [Moles/Vol] 137 mmol/L 136-145 [facility] Work Phone: Triglyceride [Mass/Vol] 194 mg/dL <199 [facility] Work Phone: Comment on above: The drugs N-Acetylcy steine and Metamizole may falsely depress this assay.Serum Triglycerides Reference Interval Normal <150 mg/dL Borderline high 150 - 199 mg/dL High 200 - 499 mg/dL Very High > or = 500 mg/dL WBC (Bld) [#/Vol] 8.1 10*3/uL 4.4-11.0 [facility] Work Phone: Bilirubin Test strip Ql (U)o n 10-13-2021 Bilirubin Ql (U) Negative Negative [facility] Work Phone: Blood erythrocytes count (nu mber/volume)on 10-13-2021 RBC (Bld) [#/Vol] 4.74 10*6/uL 4.2-5.4 [facility] Work Phone: Blood hemoglobin measurement (mass/volume)on 10-13-2021 Hemoglobin (Bld) [Mass/Vol] 12.5 g/dL 12.0-15.0 [facility] Work Phone: [phone] Blood lymphocytes/100 leukoc yteson 10-13-2021 Lymphocytes/100 WBC (Bld) 24.8 % 19-41 [facility] Work Phone: Blood monocytes/100 leukocyt eson 10-13-2021 Monocytes/100 WBC (Bld) 8.3 % 0-10 [facility] Work Phone: [phone] Blood platelet mean volumeon 10-13-2021 Platelet mean volume (Bld) [Entitic vol] 11.0 fL 6.2-12.0 [facility] Work Phone: [phone] Determination of erythrocyte mean corpuscular volume (MCV)on 10-13-2021 MCV (RBC) [Entitic vol] 85.9 fL 81-99 [facility] Work Phone: [phone] Hematocrit Auto (Bld) [Volum e fraction]on 10-13-2021 Hematocrit (Bld) [Volume fraction] 40.7 % 37-47 [facility] Work Phone: [phone] Ketones Test strip Ql (U)on 10-13-2021 Ketones Ql (U) Negative Negative [facility] Work Phone: [phone] Laboratory - Chemistry and C hemistry - challengeon 10-13-2021 ALP [Catalytic activity/Vol] 84 U/L 45-117 [facility] Work Phone: [phone] ALT [Catalytic activity/Vol] 33 U/L 13-56 [facility] Work Phone: [phone] CO2 [Moles/Vol] 27.0 mmol/L 21.0-32.0 [facility] Work Phone: [phone] Free T4 [Mass/Vol] 1.93 ng/dL 0.76-1.46 [facility] Work Phone: [phone] Globulin (S) [Mass/Vol] 4.0 g/dL 2.2-4.2 [facility] Work Phone: [phone] Urea nitrogen/Creatinine [Mass ratio] 15.7 mg/mg 10-20 [facility] Work Phone: Laboratory - Hematology and Cell countson 10-13-2021 Erythrocyte distribution width (RBC) [Entitic vol] 45.7 fL 35.1-43.9 [facility] Work Phone: Erythrocyte distribution width (RBC) [Ratio] 14.5 % 11.6-14.6 [facility] Work Phone: Immature granulocytes/100 WBC (Bld) 0.500 % 0.0-0.9 [facility] Work Phone: Comment on above: IG% - Immature Granu locytes (promyelocytes, myelocytes and metamyelocytes) > 1% indicates that a LEFT SHIFT is Present. MCH (RBC) [Entitic mass] 26.4 pg 27.0-32.0 [facility] Work Phone: Nucleated RBC/100 WBC (Bld) [Ratio] 0 % 0-5 [facility] Work Phone: MCHC Auto (RBC) [Mass/Vol]on 10-13-2021 MCHC (RBC) [Mass/Vol] 30.7 g/dL 32-36 [facility] Work Phone: Mucus LM Ql (Urine sed)on Mucus Ql (Urine sed) 0 SEEN /hpf [facility] Work Phone: Nitrite Test strip Ql (U)on 10-13-2021 Nitrite Ql (U) Negative Negative [facility] Work Phone: No Panel Informationon 10-13 Estimated GFR (MDRD) Amer 54 mL/min >60 [facility] Work Phone: Comment on above: GFR Calc Estimated GFR (MDRD) Non-Af Amer 44 mL/min >60 [facility] Work Phone: Comment on above: Non- GFR Calc Free Triiodothyronine (T3) pg/dL 2.4 pg/mL 2.18-3.98 [facility] Work Phone: Thyroid Stimulating Hormone (TSH) 0.01 uIU/mL 0.358-3.74 [facility] Work Phone: Platelets bldon 10-13-2021 Platelets (Bld) [#/Vol] 251 10*3/uL 150-450 [facility] Work Phone: [phone] Protein Test strip Ql (U)on 10-13-2021 Protein Ql (U) Negative Negative [facility] Work Phone: [phone] Serum or plasma albumin bernardino urement (mass/volume)on 10-13-2021 Albumin [Mass/Vol] 3.0 g/dL 3.2-5.0 [facility] Work Phone: [phone] Serum or plasma albumin/glob ulin mass ratioon 10-13-2021 Albumin/Globulin [Mass ratio] 0.8 {ratio} 0.9-2.4 [facility] Work Phone: Serum or plasma calcium bernardino urement (mass/volume)on 10-13-2021 Calcium [Mass/Vol] 8.9 mg/dL 8.5-10.1 [facility] Work Phone: Serum or plasma cholesterol in HDL measurement (mass/volume)on 10-13-2021 Cholesterol in HDL [Mass/Vol] 36 mg/dL >40 [facility] Work Phone: Comment on above: The drugs N-Acetylcy steine and Metamizole may falsely depress this assay. Reference Range HDL <40 mg/dL Low HDL Cholesterol HDL >or= 60 mg/dL High HDL Cholesterol Serum or plasma cholesterol in VLDL measurement (mass/volume)on 10-13-2021 Cholesterol in VLDL [Mass/Vol] 39 mg/dL 5-40 [facility] Work Phone: Serum or plasma creatinine m easurement (mass/volume)on 10-13-2021 Creatinine [Mass/Vol] 1.27 mg/dL 0.55-1.02 [facility] Work Phone: Comment on above: The validity of the calculated GFR & GFRAA in patients over 70 years has not been determined. Clinical correlation is essential. Serum or plasma low density lipoprotein (LDL) cholesterol measurement (mass/volume)on 10-13-2021 Cholesterol in LDL [Mass/Vol] 73 mg/dL 0-130 [facility] Work Phone: Serum or plasma urea nitroge n measurement (mass/volume)on 10-13-2021 Urea nitrogen [Mass/Vol] 20 mg/dL 7-18 [facility] Work Phone: [phone] Squamous epithelial cells de tection in urine sediment by light microscopyon 10-13-2021 Epithelial cells.squamous LM Ql (Urine sed) 0 SEEN /hpf 5-10 [facility] Work Phone: Thin prep Papanicolaou smear with manual screeningon 10-13-2021 Thin prep Papanicolaou smear with manual screening 19 U/L 15-37 [facility] Work Phone: Thin prep Papanicolaou smear with manual screening 5 5-15 [facility] Work Phone: Urine blood detectionon 08-0 RBC Ql (U) Negative Negative [facility] Work Phone: [phone] RBC Ql (U) 0 SEEN /hpf 0-5 [facility] Work Phone: Urine clarityon 10-13-2021 Clarity (U) Clear Clear [facility] Work Phone: Urine color determinationon 10-13-2021 Color (U) Yellow Yellow [facility] Work Phone: Urine glucose detectionon Glucose Ql (U) 1000 mg/dl Normal [facility] Work Phone: [phone] Urine leukocyte esterase det ection by dipstickon 10-13-2021 Leukocyte esterase Test strip Ql (U) Negative Negative [facility] Work Phone: [phone] Urine pHon 10-13-2021 pH (U) 6.0 [pH] 5.0 - 8.0 [facility] Work Phone: Urine sediment bacteria coun t by microscopy (number/high power field)on 10-13-2021 Bacteria LM.HPF (Urine sed) [#/Area] 0 /[HPF] None Seen [facility] Work Phone: Urine specific gravity measu rementon 10-13-2021 Specific gravity (U) [Rel density] 1.010 1.002-1.03 0 [facility] Work Phone: Urobilinogen Auto test strip Ql (U)on 10-13-2021 Urobilinogen Ql (U) Normal mg/dl Normal [facility] Work Phone: Whole blood hemoglobin A1c/t otal hemoglobin ratio (mass fraction)on 10-13-2021 HbA1c (Bld) [Mass fraction] 10.2 % 3.8-5.6 [facility] Work Phone: Comment on above: Normal < 5.7 % Predi abetic 5.7 - 6.4 % Diabetic >or= 6.5 % Please note range changes. OBSOLETEon 10-21-2020 OBSOLETE Refill (VASQUEZPJOSELITO) -- NIMO MCCLOUD ([id number]) 1950 F Date Time Provider Department 10/21/20 TOMAS ESPINO III During your visit today, we recorded the following information about you: Elisa Danielle RN 10/21/2020 4:11 PM Signed Patient has been identified by name and date of : Yes Patient phones for refill(s): Pending Prescriptions Disp Refills LOSARTAN 100 MG TABLET 90 tablet 3 Sig: Take 1 tablet by mouth once daily. MARCIN: No Date of last office visit in primary care: 04/08/2020; Future Appt: None Will call back and let us know who she wants to transfer care to. Last 2 Encounter Wt Readings: Date: Wt: 04/22/2020 122.9 kg (271 lb) 04/08/2020 125.5 kg (276 lb 9.6 oz) Previous labs/tests for medication: Blood Pressure: BUN (mg/dL) Date Value 04/04/2020 19 Sodium (mmol/L) Date Value 04/04/2020 140 Last 1 Encounter BP Readings: Date: BP: 04/22/2020 122/70 Liver Function: ALT (U/L) Date Value 04/04/2020 27 AST (U/L) Date Value 04/04/2020 21 Please advise. Thank you. IVANNA Mclaughlin, TENTMAKER.[employer]INE[employer] 10/21/2020 4:13 PM Signed Will refill, however will need to transfer to PCP for additional refills. Elysia Walls, TENTMAKER.SURESH Mckinnon LPN 10/21/2020 4:26 PM Signed Left message of such on pts identified machine. Allergies As of Date: 10/21/2020 Noted Allergy Reaction ACETAMINOPHEN 01/06/2002 2 - [...] Headache Date Reviewed: 04/22/2020 [facility] Wm - Fully Assessed Reason for Visit: Refill Request [94] Order(s):losartan (COZAAR) 100 mg tabletTake 1 tablet by mouth once daily.Disp: 90 tabletRfl: 0 Prescriptions as of 10/21/2020 - losartan (COZAAR) 100 mg tablet Take [...] CALL 911 Problem List As Of Date 10/21/2020 Noted Resolved BENIGN HYPERTENSION [I10] 05/18/2005 CERVICAL [...] 03/23/2016 Malignant neoplasm of uterus (HCC) [C55] (more content not included)... Normal [facility] Vital Signs Date Time Vital Sign Value Performing Clinician Faci jody 10-30-2024 11:59-0400 Body height 160.[address] Allison Gomez MD Work Phone: [facility] 10-30-2024 11:59-0400 Body mass index (BMI) [Ratio] 44.6 kg/m2 Dr. Allison Gomez MD Work Phone: [facility] 10-30-2024 11:59-0400 Body weight 114.[address] Allison Gomez MD Work Phone: [facility] 10-30-2024 11:59-0400 Diastolic blood pressure 89 mm[Hg] Dr. Allison Gomez MD Work Phone: [facility] 10-30-2024 11:59-0400 Heart rate 72 /min Dr. Allison Gomez MD Work Phone: [facility] 10-30-2024 11:59-0400 Systolic blood pressure 130 mm[Hg] Dr. Allison Gomez MD Work Phone: [facility] 09-28-2024 23:35-0400 Body temperature 98.6 [degF] Dr. Allison Gomez MD Work Phone: [facility] 09-28-2024 23:35-0400 Diastolic blood pressure 69 mm[Hg] Dr. Allison Gomez MD Work Phone: [facility] 09-28-2024 23:35-0400 Heart rate 79 /min Dr. Allison Gomez MD Work Phone: [facility] 09-28-2024 23:35-0400 Respiratory rate 14 /min Dr. Allison Gomez MD Work Phone: [facility] 09-28-2024 23:35-0400 SaO2% (BldA) [Mass fraction] 97 % Dr. Allison Gomez MD Work Phone: [facility] 09-28-2024 23:35-0400 Systolic blood pressure 115 mm[Hg] Dr. Allison Gomez MD Work Phone: [facility] 09-28-2024 19:07-0400 Body height 160.[address] Allison Gomez MD Work Phone: [facility] 09-28-2024 19:07-0400 Body mass index (BMI) [Ratio] 46 kg/m2 Dr. Allison Gomez MD Work Phone: [facility] 09-28-2024 19:07-0400 Body weight 117.[address] Allison Gomez MD Work Phone: [facility] 09-26-2024 22:22-0400 Body temperature 97.8 [degF] Dr. Allison Gomez MD Work Phone: [facility] 09-26-2024 22:22-0400 Diastolic blood pressure 59 mm[Hg] Dr. Allison Gomez MD Work Phone: [facility] 09-26-2024 22:22-0400 Heart rate 70 /min Dr. Allison Gomez MD Work Phone: [facility] 09-26-2024 22:22-0400 Respiratory rate 20 /min Dr. Allison Gomez MD Work Phone: [facility] 09-26-2024 22:22-0400 SaO2% (BldA) [Mass fraction] 96 % Dr. Allison Gomez MD Work Phone: [facility] 09-26-2024 22:22-0400 Systolic blood pressure 126 mm[Hg] Dr. Allison Gomez MD Work Phone: [facility] 09-26-2024 19:33-0400 Body height 160.[address] Allison Gomez MD Work Phone: [facility] 09-26-2024 19:33-0400 Body mass index (BMI) [Ratio] 46.3 kg/m2 Dr. Allison Gomez MD Work Phone: [facility] 09-26-2024 19:33-0400 Body weight 118.[address] Allison Gomez MD Work Phone: [facility] 06-22-2024 10:26-0400 Body height 160.[address] Allison Gomez MD Work Phone: [facility] 06-22-2024 10:26-0400 Body mass index (BMI) [Ratio] 45.4 kg/m2 Dr. Allison Gomez MD Work Phone: [facility] 06-22-2024 10:26-0400 Body weight 116.[address] Allison Gomez MD Work Phone: [facility] 06-22-2024 10:26-0400 Diastolic blood pressure 73 mm[Hg] Dr. Allison Gomez MD Work Phone: [facility] 06-22-2024 10:26-0400 Heart rate 65 /min Dr. Allison Gomez MD Work Phone: [facility] 06-22-2024 10:26-0400 SaO2% (BldA) [Mass fraction] 97 % Dr. Allison Gomez MD Work Phone: [facility] 06-22-2024 10:26-0400 Systolic blood pressure 125 mm[Hg] Dr. Allison Gomez MD Work Phone: [facility] 05-07-2024 17:50-0500 Body temperature 98.4 [degF] Dr. Allison Gomez MD Work Phone: [facility] 05-07-2024 17:50-0500 Diastolic blood pressure 73 mm[Hg] Dr. Allison Gomez MD Work Phone: [facility] 05-07-2024 17:50-0500 Heart rate 79 /min Dr. Allison Gomez MD Work Phone: [facility] 05-07-2024 17:50-0500 Respiratory rate 18 /min Dr. Allison Gomez MD Work Phone: [facility] 05-07-2024 17:50-0500 SaO2% (BldA) [Mass fraction] 100 % Dr. Allison Gomez MD Work Phone: [facility] 05-07-2024 17:50-0500 Systolic blood pressure 148 mm[Hg] Dr. Allison Gomez MD Work Phone: [facility] 05-07-2024 15:03-0500 Body mass index (BMI) [Ratio] 44.4 kg/m2 Dr. Allison Gmoez MD Work Phone: [facility] 05-07-2024 15:03-0500 Body weight 113.[address] Allison Gomez MD Work Phone: [facility] 04-17-2024 15:30-0500 Body mass index (BMI) [Ratio] 43.4 kg/m2 Dr. Allison Gomez MD Work Phone: [facility] 04-17-2024 15:30-0500 Body temperature 97.6 [degF] Dr. Allison Gomez MD Work Phone: [facility] 04-17-2024 15:30-0500 Body weight 111.[address] Allison Gomez MD Work Phone: [facility] 04-17-2024 15:30-0500 Diastolic blood pressure 58 mm[Hg] Dr. Allison Gomez MD Work Phone: [facility] 04-17-2024 15:30-0500 Heart rate 71 /min Dr. Allison Gomez MD Work Phone: [facility] 04-17-2024 15:30-0500 Respiratory rate 18 /min Dr. Allison Gomez MD Work Phone: [facility] 04-17-2024 15:30-0500 SaO2% (BldA) [Mass fraction] 99 % Dr. Allison Gomez MD Work Phone: [facility] 04-17-2024 15:30-0500 Systolic blood pressure 143 mm[Hg] Dr. Allison Gomez MD Work Phone: [facility] 03-23-2024 10:40-0500 Body mass index (BMI) [Ratio] 44.8 kg/m2 Dr. Allison Gomez MD Work Phone: [facility] 03-23-2024 10:40-0500 Body weight 114.[address] Allison Gomez MD Work Phone: [facility] 03-23-2024 10:40-0500 Diastolic blood pressure 60 mm[Hg] Dr. Allison Gomez MD Work Phone: [facility] 03-23-2024 10:40-0500 Heart rate 66 /min Dr. Allison Gomez MD Work Phone: [facility] [facility] 03-23-2024 10:40-0500 SaO2% (BldA) [Mass fraction] 96 % Dr. Allison Gomez MD Work Phone: [facility] 03-23-2024 10:40-0500 Systolic blood pressure 132 mm[Hg] Dr. Allison Gomez MD Work Phone: [facility] 06-07-2023 15:33-0400 Body temperature 98 [degF] Dr. Allison Gomez Work Phone: [facility] 06-07-2023 15:33-0400 Diastolic blood pressure 57 mm[Hg] Dr. Allison Gomez Work Phone: [facility] 06-07-2023 15:33-0400 Heart rate 88 /min Dr. Allison Gomez Work Phone: [facility] 06-07-2023 15:33-0400 Respiratory rate 16 /min Dr. Allison Gomez Work Phone: [facility] 06-07-2023 15:33-0400 SaO2% (BldA) [Mass fraction] 98 % Dr. Allison Gomez Work Phone: [facility] 06-07-2023 15:33-0400 Systolic blood pressure 127 mm[Hg] Dr. Allison Gomez Work Phone: [facility] 06-07-2023 12:39-0400 Body mass index (BMI) [Ratio] 48.1 kg/m2 Dr. Allison Gomez Work Phone: [facility] 06-07-2023 12:39-0400 Body weight 123.[address] Allison Gomez Work Phone: [facility] 06-07-2023 12:10-0400 Body height 160.[address] Allison Gomez Work Phone: [facility] 06-03-2023 12:34-0400 Body height 162.[address] Allison Gomez Work Phone: [facility] 06-03-2023 12:34-0400 Body mass index (BMI) [Ratio] 46.5 kg/m2 Dr. Allison Gomez Work Phone: [facility] 06-03-2023 12:34-0400 Body temperature 99.8 [degF] Dr. Allison Gomez Work Phone: [facility] 06-03-2023 12:34-0400 Body weight 122.[address] Allison Gomez Work Phone: [facility] 06-03-2023 12:34-0400 Diastolic blood pressure 80 mm[Hg] Dr. Allison Gomez Work Phone: [facility] 06-03-2023 12:34-0400 Heart rate 69 /min Dr. Allison Gomez Work Phone: [facility] 06-03-2023 12:34-0400 Respiratory rate 18 /min Dr. Allison Gomez Work Phone: [facility] 06-03-2023 12:34-0400 SaO2% (BldA) [Mass fraction] 96 % Dr. Allison Gomez Work Phone: [facility] 06-03-2023 12:34-0400 Systolic blood pressure 130 mm[Hg] Dr. Allison Gomez Work Phone: [facility] 05-06-2023 10:18-0500 Body mass index (BMI) [Ratio] 47.9 kg/m2 Dr. Allison Gomez Work Phone: [facility] 05-06-2023 10:18-0500 Body temperature 98.9 [degF] Dr. Allison Gomez Work Phone: [facility] 05-06-2023 10:18-0500 Body weight 126.[address] Allison Gomez Work Phone: [facility] 05-06-2023 10:18-0500 Diastolic blood pressure 72 mm[Hg] Dr. Allison Gomez Work Phone: [facility] 05-06-2023 10:18-0500 Heart rate 63 /min Dr. Allison Gomez Work Phone: [facility] 05-06-2023 10:18-0500 Respiratory rate 14 /min Dr. Allison Gomez Work Phone: [facility] 05-06-2023 10:18-0500 SaO2% (BldA) [Mass fraction] 96 % Dr. Allison Gomez Work Phone: [facility] 05-06-2023 10:18-0500 Systolic blood pressure 148 mm[Hg] Dr. Allison Gomez Work Phone: [facility] 03-10-2023 12:12-0500 Body height 162.[address] Allison Gomez Work Phone: [facility] 03-10-2023 12:12-0500 Body mass index (BMI) [Ratio] 48.4 kg/m2 Dr. Allison Gomez Work Phone: [facility] 03-10-2023 12:12-0500 Body temperature 98.2 [degF] Dr. Allison Gomez Work Phone: [facility] 03-10-2023 12:12-0500 Body weight 128.[address] Allison Gomez Work Phone: [facility] 03-10-2023 12:12-0500 Diastolic blood pressure 82 mm[Hg] Dr. Allison Gomez Work Phone: [facility] 03-10-2023 12:12-0500 Heart rate 88 /min Dr. Allison Gomez Work Phone: [facility] 03-10-2023 12:12-0500 Respiratory rate 17 /min Dr. Allison Gomez Work Phone: [facility] 03-10-2023 12:12-0500 SaO2% (BldA) [Mass fraction] 97 % Dr. Allison Gomez Work Phone: [facility] 03-10-2023 12:12-0500 Systolic blood pressure 156 mm[Hg] Dr. Allison Gomez Work Phone: [facility] 02-04-2023 18:55-0500 Diastolic blood pressure 80 mm[Hg] Dr. Allison Gomez Work Phone: [facility] 02-04-2023 18:55-0500 Respiratory rate 16 /min Dr. Allison Gomez Work Phone: [facility] 02-04-2023 18:55-0500 Systolic blood pressure 171 mm[Hg] Dr. Allison Gomez Work Phone: [facility] 02-04-2023 17:15-0500 Body mass index (BMI) [Ratio] 48.3 kg/m2 Dr. Allison Gomez Work Phone: [facility] 02-04-2023 17:15-0500 Body temperature 98.4 [degF] Dr. Allison Gomez Work Phone: [facility] 02-04-2023 17:15-0500 Body weight 127.[address] Allison Gomez Work Phone: [facility] 02-04-2023 17:15-0500 Heart rate 72 /min Dr. Allison Gomez Work Phone: [facility] 02-04-2023 17:15-0500 SaO2% (BldA) [Mass fraction] 100 % Dr. Allison Gomez Work Phone: [facility] 02-01-2023 07:03-0500 Body mass index (BMI) [Ratio] 46.3 kg/m2 Dr. Allison Gomez Work Phone: [facility] 02-01-2023 07:03-0500 Body temperature 97.6 [degF] Dr. Allison Gomez Work Phone: [facility] 02-01-2023 07:03-0500 Body weight 122.[address] Allison Gomez Work Phone: [facility] 02-01-2023 07:03-0500 Diastolic blood pressure 66 mm[Hg] Dr. Allison Gomez Work Phone: [facility] 02-01-2023 07:03-0500 Heart rate 84 /min Dr. Allison Gomez Work Phone: [facility] 02-01-2023 07:03-0500 Respiratory rate 20 /min Dr. Allison Gomez Work Phone: [facility] 02-01-2023 07:03-0500 SaO2% (BldA) [Mass fraction] 98 % Dr. Allison Gomez Work Phone: [facility] 02-01-2023 07:03-0500 Systolic blood pressure 136 mm[Hg] Dr. Allison Gomez Work Phone: [facility] 12-29-2022 12:15-0400 Diastolic blood pressure 76 mm[Hg] Dr. Allison Gomez Work Phone: [facility] 12-29-2022 12:15-0400 Heart rate 76 /min Dr. Allison Gomez Work Phone: [facility] 12-29-2022 12:15-0400 Inhaled oxygen flow rate 96 L/min Dr. Allison Gomez Work Phone: [facility] 12-29-2022 12:15-0400 Respiratory rate 18 /min Dr. Allison Gomez Work Phone: [facility] 12-29-2022 12:15-0400 Systolic blood pressure 138 mm[Hg] Dr. Allison Gomez Work Phone: [facility] 12-29-2022 08:52-0400 SaO2% (BldA) [Mass fraction] 98 % Dr. Allison Gomez Work Phone: [facility] 12-29-2022 08:33-0400 Body height 162.[address] Allison Gomez Work Phone: [facility] 12-29-2022 08:33-0400 Body mass index (BMI) [Ratio] 45.9 kg/m2 Dr. Allison Gomez Work Phone: [facility] 12-29-2022 08:33-0400 Body temperature 97.2 [degF] Dr. Allison Gomez Work Phone: [facility] 12-29-2022 08:33-0400 Body weight 121.[address] Allison Gomez Work Phone: [facility] 12-28-2022 09:54-0400 Body mass index (BMI) [Ratio] 45.9 kg/m2 Dr. Allison Gomez Work Phone: [facility] 12-28-2022 09:54-0400 Body temperature 98.1 [degF] Dr. Allison Gomez Work Phone: [facility] 12-28-2022 09:54-0400 Body weight 121.[address] Allison Gomez Work Phone: [facility] 12-28-2022 09:54-0400 Diastolic blood pressure 82 mm[Hg] Dr. Allison Gomez Work Phone: [facility] 12-28-2022 09:54-0400 Heart rate 80 /min Dr. Allison Gomez Work Phone: [facility] 12-28-2022 09:54-0400 Respiratory rate 18 /min Dr. Allison Gomez Work Phone: [facility] 12-28-2022 09:54-0400 SaO2% (BldA) [Mass fraction] 98 % Dr. Allison Gomez Work Phone: [facility] 12-28-2022 09:54-0400 Systolic blood pressure 158 mm[Hg] Dr. Allison Gomez Work Phone: [facility] 12-24-2022 10:00-0400 Body mass index (BMI) [Ratio] 45.7 kg/m2 Dr. Allison Gomez Work Phone: [facility] 12-24-2022 10:00-0400 Body temperature 97.9 [degF] Dr. Allison Gomez Work Phone: [facility] 12-24-2022 10:00-0400 Body weight 120.[address] Allison Gomez Work Phone: [facility] 12-24-2022 10:00-0400 Diastolic blood pressure 57 mm[Hg] Dr. Allison Gomez Work Phone: [facility] 12-24-2022 10:00-0400 Heart rate 70 /min Dr. Allison Gomez Work Phone: [facility] 12-24-2022 10:00-0400 Respiratory rate 16 /min Dr. Allison Gomez Work Phone: [facility] 12-24-2022 10:00-0400 SaO2% (BldA) [Mass fraction] 95 % Dr. Allison Gomez Work Phone: [facility] 12-24-2022 10:00-0400 Systolic blood pressure 133 mm[Hg] Dr. Allison Gomez Work Phone: [facility] 12-10-2022 13:37-0400 Body height 162.[address] Allison Gomez Work Phone: [facility] 12-10-2022 13:37-0400 Body mass index (BMI) [Ratio] 47.1 kg/m2 Dr. Allison Gomez Work Phone: [facility] 12-10-2022 13:37-0400 Body temperature 97.7 [degF] Dr. Allison Gomez Work Phone: [facility] 12-10-2022 13:37-0400 Body weight 124.[address] Allison Gomez Work Phone: [facility] 12-10-2022 13:37-0400 Diastolic blood pressure 78 mm[Hg] Dr. Allison Gomez Work Phone: [facility] 12-10-2022 13:37-0400 Heart rate 84 /min Dr. Allison Gomze Work Phone: [facility] 12-10-2022 13:37-0400 Respiratory rate 18 /min Dr. Allison Gomez Work Phone: [facility] 12-10-2022 13:37-0400 SaO2% (BldA) [Mass fraction] 99 % Dr. Allison Gomez Work Phone: [facility] 12-10-2022 13:37-0400 Systolic blood pressure 168 mm[Hg] Dr. Allison Gomez Work Phone: [facility] 12-10-2022 13:08-0400 Body mass index (BMI) [Ratio] 47 kg/m2 Dr. Allison Gomez Work Phone: [facility] 12-10-2022 13:08-0400 Body temperature 98.7 [degF] Dr. Allison Gomez Work Phone: [facility] 12-10-2022 13:08-0400 Body weight 124.[address] Allison Gomez Work Phone: [facility] 12-10-2022 13:08-0400 Diastolic blood pressure 97 mm[Hg] Dr. Allison Gomez Work Phone: [facility] 12-10-2022 13:08-0400 Heart rate 78 /min Dr. Allison Gomez Work Phone: [facility] 12-10-2022 13:08-0400 Respiratory rate 18 /min Dr. Allison Gomez Work Phone: [facility] 12-10-2022 13:08-0400 SaO2% (BldA) [Mass fraction] 96 % Dr. Allison Gomez Work Phone: [facility] 12-10-2022 13:08-0400 Systolic blood pressure 185 mm[Hg] Dr. Allison Gomez Work Phone: [facility] 11-26-2022 10:06-0400 Body mass index (BMI) [Ratio] 44.9 kg/m2 Dr. Allison Gomez Work Phone: [facility] 11-26-2022 10:06-0400 Body temperature 98.2 [degF] Dr. Allison Gomez Work Phone: [facility] 11-26-2022 10:06-0400 Body weight 122.[address] Allison Gomez Work Phone: [facility] 11-26-2022 10:06-0400 Diastolic blood pressure 60 mm[Hg] Dr. Allison Gomez Work Phone: [facility] 11-26-2022 10:06-0400 Heart rate 70 /min Dr. Allison Gomez Work Phone: [facility] 11-26-2022 10:06-0400 Respiratory rate 16 /min Dr. Allison Gomez Work Phone: [facility] 11-26-2022 10:06-0400 SaO2% (BldA) [Mass fraction] 97 % Dr. Allison Gomez Work Phone: [facility] 11-26-2022 10:06-0400 Systolic blood pressure 140 mm[Hg] Dr. Allison Gomez Work Phone: [facility] 08-31-2022 14:39-0400 Body temperature 98.2 [degF] Dr. Allison Gomez Work Phone: [facility] 08-31-2022 14:39-0400 Diastolic blood pressure 68 mm[Hg] Dr. Allison Gomez Work Phone: [facility] 08-31-2022 14:39-0400 Heart rate 83 /min Dr. Allison Gomez Work Phone: [facility] 08-31-2022 14:39-0400 Respiratory rate 16 /min Dr. Allison Gomez Work Phone: [facility] 08-31-2022 14:39-0400 SaO2% (BldA) [Mass fraction] 96 % Dr. Allison Gomez Work Phone: [facility] 08-31-2022 14:39-0400 Systolic blood pressure 138 mm[Hg] Dr. Allison Gomez Work Phone: [facility] 08-09-2022 18:53-0400 Body mass index (BMI) [Ratio] 44 kg/m2 Dr. Alliosn Gomez Work Phone: [facility] 08-09-2022 18:53-0400 Body weight [address] Allison Gomez Work Phone: [facility] 08-09-2022 18:26-0400 Body height 165.[address] Allison Gomez Work Phone: [facility] 08-09-2022 18:26-0400 Body temperature 97.7 [degF] Dr. Allison Gomez Work Phone: [facility] 08-09-2022 18:26-0400 Diastolic blood pressure 63 mm[Hg] Dr. Allison Gomez Work Phone: [facility] 08-09-2022 18:26-0400 Heart rate 71 /min Dr. Allison Gomez Work Phone: [facility] 08-09-2022 18:26-0400 Respiratory rate 16 /min Dr. Allison Gomez Work Phone: [facility] 08-09-2022 18:26-0400 SaO2% (BldA) [Mass fraction] 99 % Dr. Allison Gomez Work Phone: [facility] 08-09-2022 18:26-0400 Systolic blood pressure 138 mm[Hg] Dr. Allison Gomez Work Phone: [facility] 06-24-2022 09:37-0400 Body height 165.[address] Allison Gomez Work Phone: [facility] 06-24-2022 09:37-0400 Body mass index (BMI) [Ratio] 44.1 kg/m2 Dr. Allison Gomez Work Phone: [facility] 06-24-2022 09:37-0400 Body temperature 99.3 [degF] Dr. Allison Gomez Work Phone: [facility] 06-24-2022 09:37-0400 Body weight 120.[address] Allison Gomez Work Phone: [facility] 06-24-2022 09:37-0400 Diastolic blood pressure 75 mm[Hg] Dr. Allison Gomez Work Phone: [facility] 06-24-2022 09:37-0400 Heart rate 68 /min Dr. Allison Gomez Work Phone: [facility] 06-24-2022 09:37-0400 Respiratory rate 18 /min Dr. Allison Gomez Work Phone: [facility] 06-24-2022 09:37-0400 SaO2% (BldA) [Mass fraction] 94 % Dr. Allison Gomez Work Phone: [facility] 06-24-2022 09:37-0400 Systolic blood pressure 128 mm[Hg] Dr. Allison Gomez Work Phone: [facility] 06-03-2022 06:27-0400 Diastolic blood pressure 58 mm[Hg] Dr. Allison Gomez Work Phone: [facility] 06-03-2022 06:27-0400 Heart rate 66 /min Dr. Allison Gomez Work Phone: [facility] 06-03-2022 06:27-0400 Respiratory rate 15 /min Dr. Allison Gomez Work Phone: [facility] 06-03-2022 06:27-0400 SaO2% (BldA) [Mass fraction] 99 % Dr. Allison Gomez Work Phone: [facility] 06-03-2022 06:27-0400 Systolic blood pressure 142 mm[Hg] Dr. Allison Gomez Work Phone: [facility] 06-03-2022 04:29-0400 Body height 165.[address] Allison Gomez Work Phone: [facility] 06-03-2022 04:29-0400 Body mass index (BMI) [Ratio] 46.3 kg/m2 Dr. Allison Gomez Work Phone: [facility] 06-03-2022 04:29-0400 Body temperature 97.1 [degF] Dr. Allison Gomez Work Phone: [facility] 06-03-2022 04:29-0400 Body weight 126.[address] Allison Gomez Work Phone: [facility] 05-30-2022 16:05-0400 Body height 165.[address] Allison Gomez Work Phone: [facility] 05-30-2022 16:05-0400 Body temperature 98.7 [degF] Dr. Allison Gomez Work Phone: [facility] 05-30-2022 16:05-0400 Diastolic blood pressure 65 mm[Hg] Dr. Allison Gomez Work Phone: [facility] 05-30-2022 16:05-0400 Heart rate 72 /min Dr. Allison Gomez Work Phone: [facility] 05-30-2022 16:05-0400 Respiratory rate 14 /min Dr. Allison Gomez Work Phone: [facility] 05-30-2022 16:05-0400 SaO2% (BldA) [Mass fraction] 97 % Dr. Allison Gomez Work Phone: [facility] 05-30-2022 16:05-0400 Systolic blood pressure 148 mm[Hg] Dr. Allison Gomez Work Phone: [facility] 05-04-2022 09:50-0500 Body temperature 97.4 [degF] Dr. Allison Gomez Work Phone: [facility] 05-04-2022 09:50-0500 Body weight 128.[address] Allison Gomez Work Phone: [facility] 05-04-2022 09:50-0500 Diastolic blood pressure 78 mm[Hg] Dr. Allison Gomez Work Phone: [facility] 05-04-2022 09:50-0500 Heart rate 70 /min Dr. Allison Gomez Work Phone: [facility] 05-04-2022 09:50-0500 Respiratory rate 16 /min Dr. Allison Gomez Work Phone: [facility] 05-04-2022 09:50-0500 SaO2% (BldA) [Mass fraction] 95 % Dr. Allison Gomez Work Phone: [facility] 05-04-2022 09:50-0500 Systolic blood pressure 163 mm[Hg] Dr. Allison Gomez Work Phone: [facility] 03-02-2022 16:29-0500 Body temperature 96.9 [degF] Dr. Allison Gomez Work Phone: [facility] 03-02-2022 16:29-0500 Diastolic blood pressure 80 mm[Hg] Dr. Allison Gomez Work Phone: [facility] 03-02-2022 16:29-0500 Heart rate 73 /min Dr. Allison Gomez Work Phone: [facility] 03-02-2022 16:29-0500 Respiratory rate 14 /min Dr. Allison Gomez Work Phone: [facility] 03-02-2022 16:29-0500 SaO2% (BldA) [Mass fraction] 97 % Dr. Allison Gomez Work Phone: [facility] 03-02-2022 16:29-0500 Systolic blood pressure 174 mm[Hg] Dr. Allison Gomez Work Phone: [facility] 02-09-2022 08:58-0500 Body temperature 97.4 [degF] Dr. Allison Gomez Work Phone: [facility] 02-09-2022 08:58-0500 Body weight [address] Allison Gomez Work Phone: [facility] 02-09-2022 08:58-0500 Diastolic blood pressure 72 mm[Hg] Dr. Allison Gomez Work Phone: [facility] 02-09-2022 08:58-0500 Heart rate 68 /min Dr. Allison Gomez Work Phone: [facility] 02-09-2022 08:58-0500 Respiratory rate 18 /min Dr. Allison Gomez Work Phone: [facility] 02-09-2022 08:58-0500 SaO2% (BldA) [Mass fraction] 96 % Dr. Allison Gomez Work Phone: [facility] 02-09-2022 08:58-0500 Systolic blood pressure 143 mm[Hg] Dr. Allison Gomez Work Phone: [facility] 02-02-2022 10:14-0500 Body height 160.[address] Allison Gomez Work Phone: [facility] 02-02-2022 10:14-0500 Body mass index (BMI) [Ratio] 49.4 kg/m2 Dr. Allison Gomez Work Phone: [facility] 02-02-2022 10:14-0500 Body temperature 96 [degF] Dr. Allison Gomez Work Phone: [facility] 02-02-2022 10:14-0500 Body weight 126.[address] Allison Gomez Work Phone: [facility] 02-02-2022 10:14-0500 Diastolic blood pressure 66 mm[Hg] Dr. Allison Gomez Work Phone: [facility] 02-02-2022 10:14-0500 Heart rate 64 /min Dr. Allison Gomez Work Phone: [facility] 02-02-2022 10:14-0500 Respiratory rate 18 /min Dr. Allison Gomez Work Phone: [facility] 02-02-2022 10:14-0500 SaO2% (BldA) [Mass fraction] 97 % Dr. Allison Gomez Work Phone: [facility] 02-02-2022 10:14-0500 Systolic blood pressure 136 mm[Hg] Dr. Allison Gomez Work Phone: [facility] 12-02-2021 10:05-0400 Body temperature 98.4 [degF] Dr. Allison Gomez Work Phone: [facility] Work Phone: 12-02-2021 10:05-0400 Diastolic blood pressure 54 mm[Hg] Dr. Allison Gomez Work Phone: [facility] Work Phone: 12-02-2021 10:05-0400 Heart rate 68 /min Dr. Allison Gomez Work Phone: [facility] Work Phone: 12-02-2021 10:05-0400 Respiratory rate 16 /min Dr. Allison Gomez Work Phone: [facility] Work Phone: 12-02-2021 10:05-0400 SaO2% (BldA) [Mass fraction] 100 % Dr. Allison Gomez Work Phone: [facility] Work Phone: 12-02-2021 10:05-0400 Systolic blood pressure 119 mm[Hg] Dr. Allison Gomez Work Phone: [facility] Work Phone: 12-02-2021 08:17-0400 Body mass index (BMI) [Ratio] 49.1 kg/m2 Dr. Allison Gomez Work Phone: [facility] Work Phone: 12-02-2021 08:17-0400 Body weight 125.[address] Allison Gomez Work Phone: [facility] Work Phone: 10-22-2021 15:07-0400 Body height 160.[address] Allison Gomez Work Phone: [facility] Work Phone: 10-22-2021 15:07-0400 Body mass index (BMI) [Ratio] 49.4 kg/m2 Dr. Allison Gomez Work Phone: [facility] Work Phone: 10-22-2021 15:07-0400 Body weight 126.[address] Allison Gomez Work Phone: [facility] Work Phone: 10-15-2021 23:00-0400 Diastolic blood pressure 67 mm[Hg] Dr. Allison Gomez Work Phone: [facility] Work Phone: 10-15-2021 23:00-0400 Heart rate 64 /min Dr. Allison Gomez Work Phone: [facility] Work Phone: 10-15-2021 23:00-0400 Respiratory rate 15 /min Dr. Allison Gomez Work Phone: [facility] Work Phone: 10-15-2021 23:00-0400 SaO2% (BldA) [Mass fraction] 97 % Dr. Allison Gomez Work Phone: [facility] Work Phone: 10-15-2021 23:00-0400 Systolic blood pressure 119 mm[Hg] Dr. Allison Gomez Work Phone: [facility] Work Phone: 10-15-2021 20:18-0400 Body height 160.[address] Allison Gomez Work Phone: [facility] Work Phone: 10-15-2021 20:18-0400 Body mass index (BMI) [Ratio] 50.3 kg/m2 Dr. Allison Gomez Work Phone: [facility] Work Phone: 10-15-2021 20:18-0400 Body temperature 97.9 [degF] Dr. Allison Gomez Work Phone: [facility] Work Phone: 10-15-2021 20:18-0400 Body weight 128.[address] Allison Gomez Work Phone: [facility] Work Phone: 10-13-2021 11:31-0400 Body mass index (BMI) [Ratio] 50.3 kg/m2 Dr. Allison Gomez Work Phone: [facility] Work Phone: 10-13-2021 11:31-0400 Body temperature 97.7 [degF] Dr. Allison Gomez Work Phone: [facility] Work Phone: 10-13-2021 11:31-0400 Body weight 128.[address] Allison Gomez Work Phone: [facility] Work Phone: 10-13-2021 11:31-0400 Diastolic blood pressure 84 mm[Hg] Dr. Allison Gomez Work Phone: [facility] Work Phone: 10-13-2021 11:31-0400 Heart rate 74 /min Dr. Allison Gomez Work Phone: [facility] Work Phone: 10-13-2021 11:31-0400 Respiratory rate 18 /min Dr. Allison Gomez Work Phone: [facility] Work Phone: 10-13-2021 11:31-0400 SaO2% (BldA) [Mass fraction] 98 % Dr. Allison Gomez Work Phone: [facility] Work Phone: 10-13-2021 11:31-0400 Systolic blood pressure 142 mm[Hg] Dr. Allison Gomez Work Phone: [facility] Work Phone: Encounters Encounter Date Encounter Type Care Provider Facility Start: 12-05-2024 ambulatory Lazaro Quick lity:[facility] Start: 10-30-2024 End: 10-30-2024 Dr. Pearl Egan MD -[facility] Work Phone: Start: 10-30-2024 End: 10-30-[address] Allison Gomez MD Work Phone: -[facility] Start: 10-30-2024 End: 10-30-2024 ambulatory Pearl Egan Facility:[facility] Start: 09-28-2024 End: 09-28-2024 Dr. Allison Gomez MD Work Phone: -Emergency Department Work Phone: Start: 09-28-2024 End: 09-28-2024 Emergency department patient visit Dr. Allison Gomez MD Work Phone: -Emergency Department Start: 09-26-2024 End: 09-26-2024 Dr. Allison Gomez MD Work Phone: -Emergency Department Work Phone: Start: 09-26-2024 End: 09-26-2024 Emergency department patient visit Dr. Allison Gomez MD Work Phone: -Emergency Department Work Phone: Start: 09-21-2024 End: 09-21-[address] Allison Gomez MD Work Phone: -[facility] Start: 09-21-2024 End: 09-21-[address] Allison Gomez MD -[facility] Start: 09-21-2024 End: 09-21-2024 Dr. Allison Gomez MD -[facility] Start: 09-21-2024 End: 09-21-2024 ambulatory Allison Gomez Facility:[facility] Start: 09-18-2024 End: 09-18-[address] Allison Gomez MD Work Phone: -Outpatient Breast Imaging Start: 09-18-2024 End: 09-18-[address] Allison Gomez MD -[facility] Work Phone: Start: 09-18-2024 End: 09-18-2024 Dr. Allison Gomez MD -Outpatient [facility] Imaging Work Phone: Start: 09-18-2024 End: 09-18-2024 ambulatory Allison Gomez Facility:[facility] Start: 09-12-2024 Dr. Pearl Zhang [facility] Work Phone: Start: 08-29-2024 ambulatory Lazaro Quick [facility] Start: 08-17-2024 End: 08-17-[address] Allison Gomez MD Work Phone: [facility] Work Phone: Start: 08-17-2024 End: 08-17-[address] Carroll Mccormick MD -Laboratory Work Phone: Start: 08-17-2024 End: 08-17-2024 Dr. Carroll Mccormick MD -Laboratory Work Phone: Start: 08-17-2024 End: 08-17-[address] [facility] Facility:[facility] Start: 07-19-2024 ambulatory Mary Alice Arandaallie Facility: [place] Start: 07-19-2024 Non-patient / Non-visit Dr. Mary Alice Pablo MD -[facility] Start: 07-19-2024 Dr. Mary Alice Pablo MD -[facility] Start: 07-19-2024 End: 07-19-[address] Allison Gomez MD Work Phone: [facility] Work Phone: Start: 07-19-2024 End: 07-19-[address] Jad Joe DPM -Pulmonary Services/Neurology Work Phone: Start: 07-19-2024 End: 07-19-2024 Dr. Jad Joe DPM -Pulmonary Services/Neurology Work Phone: Start: 07-19-2024 End: 07-19-[address] [facility] Facility:[facility] Start: 07-11-2024 End: 07-11-[address] Carroll Mccormick MD -Laboratory Work Phone: Start: 07-11-2024 End: 07-11-2024 Dr. Carroll Mccormick MD -Laboratory Work Phone: Start: 07-11-2024 End: 07-11-[address] [facility] Facility:[facility] Start: 06-26-2024 End: 06-26-[address] Allison Gomez MD Work Phone: [facility] Work Phone: Start: 06-26-2024 End: 06-26-[address] Carroll Mccormick MD -Laboratory Work Phone: Start: 06-26-2024 End: 06-26-2024 Dr. Carroll Mccormick MD -Laboratory Work Phone: Start: 06-26-2024 End: 06-26-2024 ambulatory Allison Gomez Facility:[facility] Start: 06-22-2024 End: 06-22-2024 Patient encounter procedure Kandice Juan Manuel POWER MANAGER-C -[facility] Work Phone: Start: 06-22-2024 End: 06-22-2024 Kandice Juan Manuel POWER MANAGER-C -[facility] Work Phone: Start: 06-22-2024 End: 06-22-2024 ambulatory Kandice Juan Amnuel Facility:[facility] Start: 05-07-2024 End: 05-07-2024 Emergency department patient visit Dr. Bentley Cody DO -Emergency Department Work Phone: Start: 04-17-2024 End: 04-17-2024 Emergency department patient visit Dr. Jeffery Vieyra DO -Emergency Department Work Phone: Start: 04-06-2024 End: 04-06-2024 Patient encounter procedure Kandice Juan Manuel POWER MANAGER-C -Laboratory Work Phone: Start: 04-06-2024 End: 04-06-2024 ambulatory Kandice Juan Manuel Facility:[facility] Start: 03-23-2024 End: 03-23-2024 Patient encounter procedure Kandice Zambrano POWER MANAGER-C -[facility] Work Phone: Start: 03-23-2024 End: 03-23-2024 ambulatory Kandice Juan Manuel Facility:[facility] Start: 02-07-2024 End: 02-07-2024 ambulatory Kathryn Quintanilla NP Facility:[facility] Start: 12-30-2023 End: 12-30-2023 ambulatory Kandice Juan Manuel Facility:[facility] Start: 12-23-2023 End: 12-23-2023 ambulatory Kandice Juan Manuel Facility:[facility] Start: 12-23-2023 End: 12-23-2023 ambulatory Kandice Juan Manuel Facility:[facility] Start: 06-07-2023 End: 06-07-2023 Emergency department patient visit Dr. Allison Gomez Work Phone: [facility]-Emergency Department Work Phone: Start: 06-03-2023 End: 06-03-[address] Allison Gomez Work Phone: [facility] Work Phone: Start: 05-31-2023 End: 05-31-[address] Allison Gomez Work Phone: [facility] Work Phone: Start: 05-31-2023 End: 05-31-[address] Allison Gomez Work Phone: [facility]-Laboratory Work Phone: Start: 05-06-2023 End: 05-06-[address] Allison Gomez Work Phone: [facility] Work Phone: Start: 03-10-2023 End: 03-10-[address] Allison Gomez Work Phone: [facility] Work Phone: Start: 03-10-2023 End: 03-10-[address] Allison Gomez Work Phone: [facility]-Laboratory, Specimen Work Phone: Start: 03-10-2023 End: 03-10-[address] Allison Gomez Work Phone: [facility] Work Phone: Start: 02-04-2023 End: 02-04-2023 Emergency department patient visit Dr. Allison Gomez Work Phone: [facility]-Emergency Department Work Phone: Start: 02-01-2023 End: 02-01-[address] Allison Gomez Work Phone: [facility] Medicine [facility] Work Phone: Start: 12-29-2022 End: 12-29-2022 Emergency department patient visit Dr. Allison Gomez Work Phone: [facility]-Emergency Department Work Phone: Start: 12-28-2022 End: 12-28-[address] Allison Gomez Work Phone: [facility] Work Phone: Start: 12-24-2022 End: 12-24-[address] Allison Gomez Work Phone: [facility] [place] Work Phone: Start: 12-17-2022 End: 12-17-[address] [facility] Start: 12-10-2022 End: 12-10-[address] Allison Gomez Work Phone: [facility] Work Phone: Start: 12-10-2022 End: 12-10-[address] [facility] Work [facility] Start: 12-10-2022 End: 12-10-2022 Emergency department patient [facility] Dr. Allison Gomez [facility] Start: 12-10-2022 End: 12-10-[address] Allison Gomez Work Phone: [facility] Work Phone: Start: 11-26-2022 End: 11-26-[address] Allison Gomez Work Phone: [facility] Work Phone: Start: 11-02-2022 End: 11-02-[address] [facility] Start: 10-26-2022 End: 10-26-[address] Allison Gomez Work Phone: [facility] Work Phone: Start: 10-26-2022 End: 10-26-[address] Allison Gomez Work Phone: [facility]-Laboratory Work Phone: Start: 10-26-[address] [facility] Gomez [facility] Start: 09-02-[address] [facility] Start: 08-31-2022 End: 08-31-[address] Allison Gomez Work Phone: [facility] Start: 08-31-2022 End: 08-31-[address] Allison Gomez Work Phone: [facility] Work Phone: Start: 08-31-2022 End: 08-31-[address] Allison Gomez Work Phone: [facility]-Laboratory, Specimen Start: 08-09-2022 End: 08-09-2022 Emergency department patient visit Dr. Allison Gomez Work Phone: [facility]-Emergency Department Start: 08-07-[address] [facility] Gomez [facility] Start: 07-01-[address] Allison Gomez [facility] Start: 06-24-2022 End: 06-24-[address] Allison Gomez Work Phone: [facility] Work Phone: Start: 06-24-2022 End: 06-24-[address] Allison Gomez Work Phone: [facility]-Laboratory Start: 06-24-2022 End: 06-24-[address] Allison Gomez Work Phone: [facility] Endocrin[facility] Start: 06-03-2022 End: 06-03-2022 Emergency department patient visit Dr. Allison Gomez Work Phone: [facility]-Emergency Department Start: 05-31-2022 Non-patient / Non-visit Dr. Allison Gomez Work Phone: [facility] Start: 05-31-2022 End: 05-31-[address] Allison Gomez Work Phone: [facility] Work Phone: Start: 05-31-2022 End: 05-31-[address] Allison Gomez Work Phone: [facility]-Vascular Lab Start: 05-30-2022 End: 05-30-2022 Emergency department patient visit Dr. Allison Gomez Work Phone: [facility]-Emergency Department Start: 05-05-2022 End: 05-05-2022 Non-patient / Non-visit Dr. Allison Gomez Work Phone: [facility] Start: 05-05-2022 End: 05-05-[address] Allison Gomez Work Phone: [facility] Work Phone: Start: 05-05-2022 End: 05-05-[address] Allison Gomez Work Phone: [facility]-Pulmonary Services/Neurology Start: 05-04-2022 End: 05-04-[address] Allison Gomez Work Phone: [facility] Work Phone: Start: 05-04-2022 End: 05-04-[address] Allison Gomez Work Phone: [facility]-Laboratory Start: 05-04-[address] Allison Gomez Work Phone: [facility] Start: 05-04-2022 End: 05-04-2022 Emergency department patient visit Dr. Allison Gomez Work Phone: [facility] Start: 05-04-2022 End: 05-04-[address] Allison Gomez Work Phone: [facility] [place] Start: 04-06-2022 Non-patient / Non-visit Dr. Allison Gomez Work Phone: [facility] Start: 04-06-2022 End: 04-06-[address] Allison Gomez Work Phone: [facility] Work Phone: Start: 04-06-2022 End: 04-06-[address] Allison Gomez Work Phone: [facility]-Cardiovascular Services Start: 03-02-2022 End: 03-02-[address] Allison Gomez Work Phone: [facility] Start: 02-16-2022 Non-patient / Non-visit Dr. Allison Gomez Work Phone: [facility] Start: 02-09-2022 End: 02-09-[address] Allison Gomez Work Phone: [facility] [place] Start: 02-02-2022 End: 02-02-[address] Allison Gomez Work Phone: [facility] Work Phone: Start: 02-02-2022 End: 02-02-[address] Allison Gomez Work Phone: [facility]-Pulmonary Medicine [facility] Start: 12-02-2021 Non-patient / Non-visit Dr. Allison Gomez Work Phone: [facility] Start: 12-02-2021 End: 12-02-2021 Admission to same day surgery center Dr. Allison Gomez Work Phone: [facility]-Endoscopy Start: 10-29-2021 Non-patient / Non-visit Dr. Allison Gomez Work Phone: [facility] Start: 10-27-2021 End: 10-27-[address] Allison Gomez Work Phone: [facility] Start: 10-22-2021 Non-patient / Non-visit Dr. Allison Gomez Work Phone: [facility] Start: 10-15-2021 End: 10-15-2021 Emergency department patient visit Dr. Allison Gomez Work Phone: [facility]-Emergency Department Start: 10-15-2021 Non-patient / Non-visit Dr. Allison Gomez Work Phone: [facility] Start: 10-13-2021 End: 10-13-[address] Allison Gomez Work Phone: [facility] [place] Procedures Date Procedure Procedure Detail Performing Clinician Start: 09-28-[address] Allison Gomez MD Work Phone: Start: 09-28-2024 Blood count smear mc rscp w/mnl difrntl wbc count Dr. Allison Gomez MD Work Phone: Start: 09-28-2024 Mean corpuscular hemoglobin concentration determination Dr. Allison Gomez MD Work Phone: Start: 09-28-2024 Nucleated red blood cell count procedure Dr. Allison Gomez MD Work Phone: Start: 09-28-2024 Platelet mean volume determination Dr. Allison Gomez MD Work Phone: Start: 09-28-2024 CT of abdomen and pe lvis without contrast Dr. Allison Gomez MD Work Phone: Start: 09-28-2024 Urine microscopy: re d cells Dr. Allison Gomez MD Work Phone: Start: 09-28-2024 Urnls dip stick/tabl et reagent auto microscopy Dr. Allison Gomez MD Work Phone: Start: 09-26-2024 CT of abdomen and pe lvis without contrast Dr. Allison Gomez MD Work Phone: Start: 09-26-2024 Blood count smear mc rscp w/mnl difrntl wbc count Dr. Allison Gomez MD Work Phone: Start: 09-26-[address] Allison Gomez MD Work Phone: Start: 09-26-2024 Mean corpuscular hemoglobin concentration determination Dr. Allison Gomez MD Work Phone: Start: 09-26-2024 Nucleated red blood cell count procedure Dr. Allison Gomez MD Work Phone: Start: 09-26-2024 Platelet mean volume determination Dr. Allison Gomez MD Work Phone: Start: 09-26-2024 Urine microscopy: re d cells Dr. Allison Gomez MD Work Phone: Start: 09-26-2024 Urnls dip stick/tabl et reagent auto microscopy Dr. Allison Gomez MD Work Phone: Start: 09-21-[address] Allison Gomez MD Work Phone: Start: 09-21-2024 Urine microscopy: re d cells Dr. Allison Gomez MD Work Phone: Start: 09-21-2024 Urnls dip stick/tabl et reagent auto microscopy Dr. Allison Gomez MD Work Phone: Start: 09-18-2024 Screening mammography D sofía Gomez MD Work Phone: Start: 08-17-2024 Blood count smear rscp w/mnl difrntl wbc count Dr. Allison Gmoez MD Work Phone: Start: 08-17-2024 Electrophoresis: [id number] Dr. Allison Gomez MD Work Phone: Start: 08-17-2024 Electrophoresis: [id number] Dr. Allison Gomez MD Work Phone: Start: 08-17-2024 Electrophoresis: royer ma globulin Dr. Allison Gomez MD Work Phone: Start: 08-17-2024 Mean corpuscular hemoglobin concentration determination Dr. Allison Gomez MD Work Phone: Start: 08-17-2024 Nucleated red blood cell count procedure Dr. Allison Gomez MD Work Phone: Start: 08-17-2024 Platelet mean volume determination Dr. Allison Gomez MD Work Phone: Start: 07-11-2024 Blood count smear [facility] w/mnl difrntl wbc count Dr. Allison Gomez MD Work Phone: Start: 07-11-2024 Mean corpuscular hemoglobin concentration determination Dr. Allison Gomez MD Work Phone: Start: 07-11-2024 Nucleated red blood cell count procedure Dr. Allison Gomez MD Work Phone: Start: 07-11-2024 Platelet mean volume determination Dr. Allison Gomez MD Work Phone: Start: 06-26-2024 Blood count smear rscp w/mnl difrntl wbc count Dr. Allison Gomez MD Work Phone: Start: 06-26-2024 Electrophoresis: [id number] Dr. Allison Gomez MD Work Phone: Start: 06-26-2024 Electrophoresis: [id number] Dr. Allison Gomez MD Work Phone: Start: 06-26-2024 Electrophoresis: royer ma globulin Dr. Allison Gomez MD Work Phone: Start: 06-26-2024 Mean corpuscular hemoglobin concentration determination Dr. Allison Gomez MD Work Phone: Start: 06-26-2024 Nucleated red blood cell count procedure Dr. Allison Gomez MD Work Phone: Start: 06-26-2024 Platelet mean volume determination Dr. Allison Gomez MD Work Phone: Start: 05-07-[address] Allison Gomez MD Work Phone: Start: 05-07-2024 Measurement of renal function Dr. Allison Gomez MD Work Phone: Comment on above: GFR Calc Start: 05-07-2024 Urnls dip stick/tabl et reagent auto microscopy Dr. Allison Gomez MD Work Phone: Start: 05-07-2024 Computed tomography of abdomen and pelvis with intravenous contrast Dr. Allison Gomez MD Work Phone: Start: 04-17-2024 X-ray of ankle, thre e or more views Dr. Allison Gomez MD Work Phone: Start: 04-06-2024 Measurement of renal function Dr. Allison Gomez MD Work Phone: Comment on above: GFR Calc Start: 04-06-[address] Allison Gomez MD Work Phone: Start: 04-06-2024 Urine microalbumin/creatinine ratio measurement Dr. Allison Gomez MD Work Phone: Start: 04-06-2024 Vitamin D, 25-hydrox y measurement Dr. Allison Gomez MD Work Phone: Comment on above: Vitamin D 25(OH) Sta tus Range Deficiency <20 ng/mL (50nmol/L) Insufficiency 20 - 30 ng/mL (50 - 75 nmol/L) Sufficiency 30 - 100 ng/mL (75 - 250 nmol/L) Toxicity >100 ng/mL (>250 nmol/L) Start: 05-31-[address] Allison Gomez Work Phone: Start: 05-06-[address] Allison Gomez Work Phone: Start: 03-10-[address] Allison Gomez Work Phone: Start: 12-29-2022 CT angiography of ch est with contrast Dr. Allison Gomez Work Phone: Start: 12-29-2022 Plain chest X-ray Dr. Radha Gomez Work Phone: Start: 12-10-2022 CT of abdomen and pe lvis without contrast Dr. Allison Gomez Work Phone: Start: 12-10-[address] Allison Gomez Work Phone: Start: 08-31-[address] Allison Gomez Work Phone: Start: 08-09-2022 Plain X-ray of toe Dr. Allison Gomez Work Phone: Start: 04-06-2022 Cardiovascular stres s test using pharmacologic stress agent Dr. Allison Gomez Work Phone: Start: 12-02-[address] Allison Gomez Work Phone: Start: 10-27-2021 CT of abdomen and pe lvis without contrast Dr. Allison Gomez Work Phone: Start: 10-15-2021 CT of head without contrast Dr. Allison Gomez Work Phone: H/O: hysterectomy S/P hysterectomy Dr. Daniela Gomez Work Phone: H/O: surgery S/P wrist surgery Dr. Allison Gomez Work Phone: History of cholecystectomy Status post laparoscopic cholecystectomy Dr. Allison Gomez Work Phone: Urine culture Dr. Allison Haile hner Work Phone: Urine culture Dr. Allison Haile hner Work Phone: [facility] Work [facility]: Plan of Treatment Date Care Activity Detail Author Start: 09-28-2024 End: 09-28-2024 [facility] Start: 09-26-2024 [facility] Start: 09-21-2024 Urine culture Urine Culture [facility] Start: 05-07-2024 [facility] Start: 04-17-2024 [facility] Start: 06-07-2023 [facility] Start: 02-04-2023 [facility] Start: 12-29-2022 [facility] Start: 12-10-2022 Emergency department visit limited/minor prob EMR DPT VST MAYX REQ PHY/QHP [facility] Start: 08-09-2022 Avulsion nail plate partial/complete simple 1 REMOVAL OF NAIL PLATE [facility] Start: 05-30-2022 US.doppler Lower ext remity vein [facility] Start: 05-04-2022 Patient referral [facility] Work Phone: Start: 05-04-2022 Evaluation of diagno stic study results [facility] Start: 12-02-2021 Patient discharge [facility] Work Phone: Albumin/Globulin [Ma ss Ratio] in Serum or Plasma by Electrophoresis [facility] Albumin/Globulin [Ma ss Ratio] in Serum or Plasma by Electrophoresis [facility] Basic metabolic 2007 panel with ionized calcium - Serum or Plasma [facility] [facility] [place] Basic metabolic 2008 panel with ionized calcium - Serum or Plasma [facility] Colonoscopy [facility] Work Phone: CT Abdomen and Pelvi s contrast [facility] Work Phone: Electrophoresis: albumin [facility] Electrophoresis: albumin [facility] Electrophoresis: [id number] [facility] Electrophoresis: [id number] [facility] Electrophoresis: [id number] [facility] Electrophoresis: [id number] [facility] Electrophoresis: royer ma globulin [facility] Electrophoresis: royer ma globulin [facility] Globulin measurement [facility] Globulin measurement [facility] Patient Education [facility] Work Phone: Patient referral [facility] Work Phone: Protein electrophore sis panel - Serum or Plasma [facility] Protein electrophore sis panel - Serum or Plasma [facility] Serum protein electrophoresis [facility] Serum protein electrophoresis [facility] T4 free measurement [facility] T4 free measurement [facility] Thyroid stimulating hormone measurement [facility] Thyroid stimulating hormone measurement [facility] Total globulins measurement [facility] Total globulins measurement [facility] Triiodothyronine, fr ee measurement [facility] Urinalysis complete panel - Urine [facility] Immunizations Immunization Date Immunization Notes Care Provider Fa brit 08-09-2022 tetanus toxoid, redu fadi diphtheria toxoid, and acellular pertussis vaccine, adsorbed Dr. Allison Gomez Work Phone: [facility] 12-04-2019 influenza, injectabl e, quadrivalent, preservative free Dr. Allison Gomez Work Phone: [facility] 12-04-2019 influenza, seasonal, injectable Dr. Allison Gomez Work Phone: [facility] 03-01-2018 influenza, injectabl e, quadrivalent, preservative free Dr. Allison Gomez Work Phone: [facility] 03-01-2018 influenza, seasonal, injectable Dr. Allison Gomez Work Phone: [facility] 02-11-2016 influenza, injectabl e, quadrivalent, preservative free Dr. Allison Gomez Work Phone: [facility] 02-11-2016 influenza, seasonal, injectable Dr. Allison Gomez Work Phone: [facility] 05-23-[address] Allison Gomez Work Phone: [facility] 08-28-[address] Brenda Gomez Work Phone: [facility] Work Phone: 08-28-2009 pneumococcal vaccine , unspecified formulation Dr. Allison Gomez Work Phone: [facility] Payers Date Payer Category Payer Medicare [id number] 2024 Medicare [id number] 2023 Self-pay [id number] 2023 Private Health Insurance 101 [id number] 2015 Unknown [id number] Medicare [id number] Unknown [id number] Unknown [id number] Unknown [id number] 2.16.8 40.1.295533.3.579.2.462 Unknown [id number] 2.16.8 40.1.918461.3.579.2.462 Unknown [id number] 2.16.8 40.1.310536.3.579.2.462 Unknown [id number] 2.16.8 40.1.871777.3.579.2.462 Unknown [id number] 2.16.8 40.1.606288.3.579.2.462 Unknown [id number] 2.16.8 40.1.494960.3.579.2.462 Unknown [id number] 2.16.8 40.1.928900.3.579.2.462 Unknown [id number] 2.16.8 40.1.788450.3.579.2.462 Unknown [id number] 2.16.8 40.1.569212.3.579.2.462 Unknown [id number] 2.16.8 40.1.386381.3.579.2.462 Unknown [id number] 2.16.8 40.1.275238.3.579.2.462 Unknown [id number] 2.16.8 40.1.070636.3.579.2.462 Unknown [id number] 2.16.8 40.1.183723.3.579.2.462 Unknown [id number] 2.16.8 40.1.358275.3.579.2.462 Unknown [id number] 2.16.8 40.1.700369.3.579.2.462 Unknown [id number] 2.16.8 40.1.028451.3.579.2.462 Unknown [id number] 2.16.8 40.1.165776.3.579.2.462 Unknown [id number] 2.16.8 40.1.358050.3.579.2.462 Unknown [id number] 2.16.8 40.1.286459.3.579.2.462 Unknown [id number] 2.16.8 40.1.225129.3.579.2.462 Unknown [id number] 2.16.8 40.1.163441.3.579.2.462 Unknown [id number] 2.16.8 40.1.450836.3.579.2.462 Social History Date Type Detail Facility Start: 10-15-2021 End: 06-07-2023 Tobacco smoking status NHIS Unknown if ever smoked [facility] Start: 08-26-2020 Rare [facility] Start: 11-12-2019 None [facility] Start: 11-12-2019 Alone [facility] Start: 08-26-2020 Non-smoker [facility] Start: 1950 Sex Assigned At Female [facility] Start: 05-07-2024 End: 09-28-2024 Tobacco smoking status NHIS Never smoked tobacco (finding) [facility] Start: 06-28-2024 Sex Female (finding) [facility] Goals Date Patient Goal Desired Activity /State Mental Status Date Assessment Result Facility 05-07-2024 Cognitive function Level Of Cons ciousness Awake;Alert;Appropriate;Follow s Commands [facility] Work Phone: 02-04-2023 Cognitive function Voice/Name [facility] Work Phone: 12-29-2022 Cognitive function Voice/Name [facility] Work Phone: 12-02-2021 Cognitive function Voice/Name [facility] Work Phone: 10-15-2021 Cognitive function Level Of Cons ciousness Awake;Alert;Appropriate;Follow s Commands [facility] Work Phone: Clinical Notes 08-19-2020 to 10-30-2024 Note Date & Type Note Facility 10-30-2024 Evaluation note Diagnosis Onset Date Resolution Mixed incontinence acute October 30, 2024 11:50am Recurrent UTI acute October 11:50am Renal insufficiency acute Augus t 2024 11:50am Vaginal atrophy acute October 302024 11:50am DM2 (diabetes mellitus, type 2) chronic October 30 11:50am [facility] Work Phone: 1(427) 372-765907-17-2025 Radiology Diagnostic study [facility]07-17-2025 Discharge summary Author Branden Argueta [facility] Note Date/Time September 28, 2024 11:3 8pm [facility] Medical Records Department [address] [place] [address] Emergency Department Summary 09/28/24 MR#: [id number] Acct: [id number] Name: NIMO MCCLOUD Rep #:[id number] : 1950 73 From: Branden alejandroett DO PCP: Dr. Allison Gomez MD Status:REG ER Location: ED HPI HPI - Female History of Present Illness Chief Complaint: Complaint Narrative Narrative: Chief complaint and HPI: Dysuria. History taken by patient as well as medical record. 73-year-old female with past medical history of HTN, UTIs with some being drug-resistant ESBL, CKD, DM 2 presents for evaluation of dysuria. Associated symptoms are flank pain and nausea. Patient states she was diagnosedwith a UTI multiple days ago. Started on Macrobid. Took it for 7 days. Finished it a week ago last Wednesday. Followed up with PCP who stated she still had a UTI and placed her on another 7-day course of Macrobid. Urine cultures returned ESBL E. coli sensitive to Bactrim and IV antibiotics. Patient was seenin our emergency department on 09/26 for same complaint. At that time she had laboratory workup that was relatively unremarkable. She did CT abdomen pelvis that was negative. She was discharged home on Bactrim. Patient states her symptoms have not improved which is why she presents. She denies any fever, chills, chest pain, shortness of breath. Review of systems: See HPI Medications: As listed on the chart Allergies: As listed on the chart PFSH: Per chart Vital signs: As listed on the chart. Reviewed. Physical exam: Gen: A&O x3, NAD Head: Normocephalic, atraumatic Eyes: No sclera icterus, conjunctiva clear ENT: Moist mucous membranes Neck: Trachea midline, No JVD CV: RRR, no murmurs, no peripheral edema Resp: Lungs CTA BL, no w/r/c GI: Abd soft, non-distended, non-tender, no r/r/g : No CVA tenderness, paraspinal musculature of the lumbar spine tender to palpation bilaterally Musc: Full ROM, no deformity Skin: Warm, dry Neuro: Alert, oriented, grossly intact, sensation intact Psych: Cooperative, appropriate mood and affect [facility] Medical History History of ESBL E. coli infection Obesity Urinary urgency Wears glasses Wears dentures Alcohol use Arthritis Easy bruising Restless legs Dietary restriction History of diverticulitis Shortness of breath on exertion Chronic cough Leg cramps History of edema History of echocardiogram History of stress test History of colon polyps GERD (gastroesophageal reflux disease) BiPAP (biphasic positive airway pressure) dependence Pyelonephritis Non-smoker Low back pain ANISHA (obstructive sleep apnea) Asthma Diarrhea Diabetes Shoulder pain Hemorrhoids Kidney disease Cancer HTN (hypertension) Hyperlipidemia Home Medications ?Medication ?Instructions ?Recorded ?Last Taken ?Type multivitamin 1 tab PO DAILY #90 tabs 08/03 Unknown Rx potassium citrate 99 mg capsule 99 mg PO DAILY #90 cap s 02/16/22 Unknown Rx cyanocobalamin (vitamin B-12) 1 tab PO DAILY 06/03/22 Unknown History magnesium gluconate 12.5 mg 250 mg PO DAILY 06/03/22 U nknown History magnesium (250 mg) tablet lovastatin 20 mg tablet 20 mg PO QHS cholesterol #90 tabs 03/23/23 Unknown Rx omeprazole 20 mg capsule,delayed 20 mg PO DAILY GERD # 90 caps 03/23/23 Unknown Rx release ascorbate calcium (vitamin C) 500 500 mg PO DAILY 09/12 04/07 Unknown History mg tablet blood-glucose sensor (FreeStyle #6 ea 04/10/24 Unknown Rx Ty 3 Plus Sensor device) tirzepatide 15 mg/0.5 mL 15 mg (0.5 mL) subcut QWEEK #6 mL 07/24/24 Unknown Rx subcutaneous pen injector (Mounjaro) levothyroxine 200 mcg tablet 200 mcg PO .Mon-Sat #90 t abs 07/31/24 Unknown Rx nitrofurantoin 100 mg PO BID #14 caps 09/22 Unknown Rx monohydrate/macrocrystals 100 mg capsule (Macrobid) sulfamethoxazole 800 1 tab PO BID 7 days #14 tabs 09/26/24 Unknown Rx mg-trimethoprim 160 mg tablet (Bactrim DS) insulin aspart 15 unit subcut TID 09/28/24 Unknown History (niacinamide)(U-100) 100 unit/mL(3 mL) subcutaneous pen (Fiasp FlexTouch U-100 Insulin) insulin glargine 100 unit/mL (3 25 unit subcut DAILY 0 09/28/24 Unknown History mL) subcutaneous pen (Lantus Solostar U-100 Insulin) vitamin D3 125 mcg (5,000 1 cap PO DAILY 09/28/24 Unkn own History unit)-vitamin K2 180 mcg capsule (K2-D3 Max) Allergy/AdvReac Type Severity Reaction Status Date / Time ciprofloxacin (From Cipro) Allergy Mild Rash Verified 09/28/24 19:10 ondansetron HCl (From Zofran Allergy Rash Verified 09/28/24 19:10 (as hydrochloride)) oxycodone HCl (From Percocet) Allergy Rash Verified 09/28/24 19:10 Penicillins (PCN) Allergy Other Verified 09/28/24 19:10 propoxyphene napsylate (From Allergy Rash Verified 09/28/24 19:10 Darvocet-N 100) nickel AdvReac Intermediate Rash Verified 09/28/24 19:10 Family History Father Colon cancer Myocardial infarction Diabetes Hypertension Hyperlipemia Grandmother No problems noted. Mother Colon cancer Cancer Heart disease CVA (cerebral vascular accident) Diabetes Thyroid disorder Hypertension Myocardial infarction Hyperlipemia Brother Colon cancer Unknown Breast cancer 2 cousins Uncle Colon cancer Surgical History History of laparoscopy History of oral surgery H/O: hysterectomy History of cholecystectomy History of colonoscopy (~08/14/19) History of esophagogastroduodenoscopy (EGD) S/P colonoscopy S/P wrist surgery S/P hysterectomy Stone, kidney Status post laparoscopic cholecystectomy Social History Smoking Status: Never smoker second hand exposure: No alcohol intake: current alcohol intake frequency: holidays/special occasions only substance use type: does not use caffeine: Yes what type of physical activity do you participate in: none frequency: does not exercise EXAM Physical Exam Const Vital Signs: 09/28/24 19:07 09/28/24 20:09 09/28/24 21:07 Temperature 98.3 F 98.7 F Temperature Source Temporal Oral Pulse Rate 64 63 78 Respiratory Rate 18 12 12 Blood Pressure 129/46 H 140/61 H 129/65 H Blood Pressure Mean 73 87 86 Pulse Ox 98 98 98 Oxygen Delivery Method Room Air Room Air Room Air 09/28/24 22:59 Temperature Temperature Source Pulse Rate 71 Respiratory Rate 12 Blood Pressure 112/66 Blood Pressure Mean 81 Pulse Ox 98 Oxygen Delivery Method Room Air MDM MDM MDM Narrative Medical decision making narrative: 73-year-old female with past medical history of HTN, UTIs with some being drug-resistant ESBL, CKD, DM 2 presents for evaluation of dysuria. Associated symptoms are flank pain and nausea. History taken by patient as well as medicalrecord. See HPI. Was seen in our emergency department for same complaint on 09/26. Discharged home on Bactrim. On chart review, I did review the previous urine culture from 09/21. Grew out ESBL E. coli sensitive to Bactrim and IV antibiotics. Differential diagnosis includes but is not limited to UTI, pyelonephritis, nephrolithiasis, electrolyte abnormality, MCKAYLA. NS bolus, morphine, Reglan ordered. Although patient did have CT abdomen pelvis that was unremarkable for urolithiasis on 09/26 it did have nephrolithiasis. Given that she states her back pain is worsening, I cannot rule out urolithiasis therefore CT abdomen pelvis without contrast will be performed with basic labs. CBC without leukocytosis or anemia. BMP shows MCKAYLA with a BUN of 37 and a creatinineof 1.68. Patient's creatinine on the was 1.25. UA negative for UTI. CT abdomen pelvis shows no acute intra-abdominal abnormality. Patient again has nonobstructing stone in the right kidney measuring 2 mm, unchanged. No hydronephrosis. At this point in time, no clear etiology for patient's pain however with her MCKAYLA, I do think that she would benefit from admission for continued IV hydration. I spoke with the hospitalist service, Dr. Wen. Declined admission. Agreed with the NS bolus but then discharge home. Will repeat BMP after fluids. Given that she does have tenderness to the paraspinal musculature of the lumbar spine, may be a muscle spasm. Will give cyclobenzaprine. On reevaluation patient's back pain has improved with cyclobenzaprine. Suspect myofascial spasm. Repeat BMP without change. Patientwill be discharged home. Recommended drinking plenty of fluids over the next several days. Will give an outpatient order to have her BMP repeated in 2 days. Follow-up with primary care physician. She confirmed understand the plan. Patient stable to discharge home. Return precautions explained. Cyclobenzaprine prescription for possible myofascial spasm. Impression: 1. MCKAYLA on CKD 2. Recent UTI infection, resolved 3. Back pain Lab Data Labs: Laboratory Results - last 24 hr 09/28/24 09/28/24 09/28/24 19:20 20:05 22:22 WBC 9.9 RBC 4.87 Hgb 12.9 Hct 39.5 MCV 81.1 MCH 26.5 L MCHC 32.7 RDW Std Deviation 42.5 RDW Coeff of Tara 14.7 H Plt Count 219 MPV 10.3 Immature Gran % (Auto) 0.400 Neut % (Auto) 60.3 Lymph % (Auto) 26.1 Lamar % (Auto) 10.1 H Eos % (Auto) 2.6 Baso % (Auto) 0.5 Absolute Neuts (auto) 6.0 Absolute Lymphs (auto) 2.58 Nucleated RBC % 0 Sodium 136 138 Potassium 4.2 4.1 Chloride 101 103 Carbon Dioxide 24.7 24.9 Anion Gap 10 9 BUN 37 H 35 H Creatinine 1.68 H 1.69 H Estim Creat Clear Calc 38.12 L 37.89 L Est GFR (MDRD) Non-Af 32 L 32 L BUN/Creatinine Ratio 21.8 H 20.4 H Glucose 115 H 70 Calcium 9.7 9.1 Urine Color Yellow Urine Clarity Clear Urine pH 6.[address] [place] 1.010 Urine Protein 15 H Urine Glucose (UA) Normal Urine Ketones Negative Urine Occult Blood Negative Urine Nitrite Negative Urine Bilirubin Negative Urine Urobilinogen Normal Ur Leukocyte Esterase 25 H Urine RBC 0-5 SEEN Urine WBC 0-5 SEEN Ur Squamous Epith Cells 0-5 SEEN Urine Bacteria 0 SEEN Urine Mucus 0 SEEN Radiography Diagnostic Testing: Clinical Impression(s) from Imaging Studies Abdomen/Pelvis CT 09/28/24 19:58 IMPRESSION: 1. No acute intra-abdominal abnormality. 2. Nonobstructing stone in the right kidney measuring 2 mm, unchanged. Reading Location: [facility] Discharge Plan Triage Chief Complaint: Complaint ED Provider: Branden Argueta Dx/Rx/DC Orders Prescriptions: No Action ascorbate calcium (vitamin C) 500 mg tablet 500 mg PO DAILY cyanocobalamin (vitamin B-12) Tablet,Chewable 1 tab PO DAILY magnesium gluconate 12.5 mg magne- sium (250 mg) Tablet 250 mg PO DAILY sulfamethoxazole-trimethoprim [Bactrim DS] 800-160 mg tablet 1 tab PO BID 7 Days Qty: 14 0RF K2-D3 Max 125 mcg (5,000 unit)-180 mcg capsule 1 cap PO DAILY insulin glargine [Lantus Solostar U-100 Insulin] 100 unit/mL (3 mL) insulin pen 25 unit subcut DAILY Fiasp FlexTouch U-100 Insulin 100 unit/mL (3 mL) insulin pen 15 unit subcut TID multivitamin Tablet 1 tab PO DAILY Qty: 90 3RF potassium citrate 99 mg capsule 99 mg PO DAILY Qty: 90 3RF lovastatin 20 mg tablet 20 mg PO QHS Qty: 90 3RF omeprazole 20 mg capsule,delayed release(DR/EC) 20 mg PO DAILY Qty: 90 3RF (DME) FreeStyle Ty 3 Plus Sensor Device See Rx Instructions .Route Qty: 6 1RF Rx Instructions: As directed Mounjaro 15 mg/0.5 mL pen injector 15 mg subcut QWEEK Qty: 6 1RF levothyroxine 200 mcg tablet 200 mcg PO .Mon-Sat Qty: 90 3RF nitrofurantoin monohyd/m-cryst [Macrobid] 100 mg capsule 100 mg PO BID Qty: 14 0RF Rx Instructions: must administer with a meal/food Primary Care Provider: Allison Gomez Referrals: Allison Gomez MD [Primary Care Provider] - Print Language: Syrian What to do if you have Problems For any increased pain, shortness of breath, bleeding, nausea or vomiting, chestpain, or any unexpected problems, contact your Primary Care Provider. Call [facility] ([phone]) or report to the closest Emergency Room. Call 911 if necessary. 09/28/24 2334 <Electronically signed by Branden Argueta DO> Cosigner Signature (if applicable): CC: Dr. Allison Gomez MD ~ Signed ADDENDUM by Dr. Branden Argueta DO on 09/28/24 at 2338 Of note, after receiving morphine, patient did develop mild hives and therefore Benadryl was given 09/28/24 2338<Electronically signed by Branden Argueta DO> Cosigner Signature (if applicable): cc: Dr. Allison Gomez MD ~* Signed [facility] Work Phone: 1(708) 685-115007-15-2025 Discharge summary [facility] Medical Records Department [address] [place] [address] Emergency Department Summary 09/26/24 MR#: [id number] Acct: [id number] Name: NIMO MCCLOUD Rep #:[id number] : 1950 73 From: Micah Young MD PCP: Dr. Allison Gomez MD Status:REG ER Location: ED HPI HPI - Female History of Present Illness Chief Complaint: Complaint Informant: patient Narrative Narrative: 73-year-old female history of hypertension, UTIs with some being drug-resistant ESBL, chronic kidney disease diabetes. Was diagnosed a UTI about 10+ days ago. Started on Macrobid. Took it for 7 days.Finished it a week ago last Wednesday. Was not feeling better. Followed up with her primary care physician. He put her on 7 more days of Macrobid to the urine culture. Urine cultures returned ESBL E. coli sensitive to Bactrim and IV antibiotics. Patient house complainingof flank pain and some nausea.Has had kidney stones in the past. Prior similar symptoms: Yes Recent Illness/Hospitalization: No PFSH PFSH Medical History History of ESBL E. coli infection Obesity Urinary urgency Wears glasses Wears dentures Alcohol use Arthritis Easy bruising Restless legs Dietary restriction History of diverticulitis Shortness of breath on exertion Chronic cough Leg cramps History of edema History of echocardiogram History of stress test History of colon polyps GERD (gastroesophageal reflux disease) BiPAP (biphasic positive airway pressure) dependence Pyelonephritis Non-smoker Low back pain ANISHA (obstructive sleep apnea) Asthma Diarrhea Diabetes Shoulder pain Hemorrhoids Kidney disease Cancer HTN (hypertension) Hyperlipidemia Home Medications ?Medication ?Instructions ?Recorded ?Last Taken ?Type multivitamin 1 tab PO DAILY #90 tabs 08/03 Unknown Rx potassium citrate 99 mg capsule 99 mg PO DAILY #90 cap s 02/16/22 Unknown Rx cyanocobalamin (vitamin B-12) 1 tab PO DAILY 06/03/22 Unknown History magnesium gluconate 12.5 mg 250 mg PO DAILY 06/03/22 U nknown History magnesium (250 mg) tablet lovastatin 20 mg tablet 20 mg PO QHS cholesterol #90 tabs 03/23/23 Unknown Rx omeprazole 20 mg capsule,delayed 20 mg PO DAILY GERD # 90 caps 03/23/23 Unknown Rx release ascorbate calcium (vitamin C) 500 500 mg PO DAILY 09/12 04/07 Unknown History mg tablet losartan 100 mg tablet 100 mg PO QDAY #30 tabs 12/07 Unknown Rx Lantus Solostar U-100 Insulin 100 50 unit (0.5 mL) sub cut DAILY #45 04/10/24 Unknown Rx unit/mL (3 mL) subcutaneous pen mL (insulin glargine) blood-glucose sensor (FreeStyle #6 ea 04/10/24 Unknown Rx Ty 3 Plus Sensor device) insulin aspart 35 unit subcut TID #94.5 mL 04/13/24 Unknown Rx (niacinamide)(U-100) 100 unit/mL(3 mL) subcutaneous pen (Fiasp FlexTouch U-100 Insulin) famotidine 20 mg tablet (Pepcid) 20 mg PO BID 14 days #28 tabs 05/07/24 Unknown Rx tirzepatide 15 mg/0.5 mL 15 mg (0.5 mL) subcut QWEEK #6 mL 07/24/24 Unknown Rx subcutaneous pen injector (Daniellero) levothyroxine 200 mcg tablet 200 mcg PO .Mon-Sat #90 t abs 07/31/24 Unknown Rx nitrofurantoin 100 mg PO BID #14 caps 09/22 Unknown Rx monohydrate/macrocrystals 100 mg capsule (Macrobid) sulfamethoxazole 800 1 tab PO BID 7 days #14 tabs 09/26/24 Unknown Rx mg-trimethoprim 160 mg tablet (Bactrim DS) Allergy/AdvReac Type Severity Reaction Status Date / Time ciprofloxacin (From Cipro) Allergy Mild Rash Verified 09/26/24 19:36 ondansetron HCl (From Zofran Allergy Rash Verified 09/26/24 19:36 (as hydrochloride)) oxycodone HCl (From Percocet) Allergy Rash Verified 09/26/24 19:36 Penicillins (PCN) Allergy Other Verified 09/26/24 19:36 propoxyphene napsylate (From Allergy Rash Verified 09/26/24 19:36 Darvocet-N 100) nickel AdvReac Intermediate Rash Verified 09/26/24 19:36 Family History Father Colon cancer Myocardial infarction Diabetes Hypertension Hyperlipemia Grandmother No problems noted. Mother Colon cancer Cancer Heart disease CVA (cerebral vascular accident) Diabetes Thyroid disorder Hypertension Myocardial infarction Hyperlipemia Brother Colon cancer Unknown Breast cancer 2 cousins Uncle Colon cancer Surgical History History of laparoscopy History of oral surgery H/O: hysterectomy History of cholecystectomy History of colonoscopy (~08/14/19) History of esophagogastroduodenoscopy (EGD) S/P colonoscopy S/P wrist surgery S/P hysterectomy Stone, kidney Status post laparoscopic cholecystectomy Social History Smoking Status: Never smoker second hand exposure: No alcohol intake: current alcohol intake frequency: holidays/special occasions only substance use type: does not use caffeine: Yes what type of physical activity do you participate in: none frequency: does not exercise ROS ROS ED ROS Narrative Bilateral flank pain. Fever. Nausea. Constitutional Constitutional ED: Reports chills and fever(s) Eyes Eyes: Denies blurry vision ENT ENT ED: Denies ear pain Cardiovascular Cardiovascular: Denies chest pain Respiratory/Chest Respiratory/Chest: Denies cough or dyspnea Gastrointestinal Gastrointestinal: Reports nausea; Denies abdominal pain, diarrhea or vomiting Genitourinary Genitourinary ED: Denies dysuria or hematuria Musculoskeletal Musculoskeletal: Denies arthralgias or myalgias Integumentary Denies abscess or Abrasions Neurologic Neurologic: Denies headache(s) Psychiatric Psychiatric: Denies anxiety or depression Endocrine Endocrinology: Denies heat intolerance Hematologic/Lymphatic Hematologic/Lymphatic: Denies easy bleeding or easy bruising Allergic/Immunologic Allergic/Immunologic ED: Denies mouth swelling, tongue swelling or urticaria EXAM Physical Exam Narrative Exam Narrative: Well-appearing 73-year-old female. Vital signs stable afebrile. Does not look septic toxic. Currently no acute distress. H EENT exam pupils round react to light. Moist mucous membranes. Neck nontender no JVD. No lymphadenopathy. Lungs clear to auscultation bilaterally. Heart regular rhythm no murmur rate about 65. Chest wall ribs nontender. Abdomen soft nontender. No peritoneal signs. Moving all 4 extremities. Normal strength. Nontender. No edema or cords in the lower extremities. Back mild bilateral CVA tenderness. Neurologically patient is awake alert. Answer questions following commands. Const Vital Signs: 09/26/24 19:33 09/26/24 19:35 09/26/24 21:00 Temperature 97.8 F 97.8 F 97.8 F Temperature Source Oral Oral Oral Pulse Rate 66 66 70 Respiratory Rate 14 14 20 H Blood Pressure 158/61 H 158/61 H 126/59 H Blood Pressure Mean 93 93 81 Pulse Ox 98 98 96 Oxygen Delivery Method Room Air Room Air Room Air Positive well nourished and well developed; Negative for cachectic, contracturesor unkempt General Appearance ED: well developed and NAD; Negative for unkempt, cachectic, contractures or pallor Nutritional Appearance: Negative for cachectic HEENT Reports moist mucous membranes Negative for trauma or tenderness Eyes PERRL and EOMs intact bilaterally General Eye ED: Negative for pale conjunctiva or scleral icterus Neck no lymphadenopathy, supple and no JVD Chest Wall inspection of chest normal and palpation of chest normal Resp normal respiratory effort and clear to auscultation bilaterally Cardio regular rate, regular rhythm, S1 normal heart sound, no murmurs and no JVD GI normal to inspection, nondistended, normoactive bowel sounds, soft to palpation,non-tender, non-distended and no masses Auscultation: normoactive bowel sounds Palpation: Negative for tender or guarding Back/Spine Negative for no CVA tenderness Back/Spine Narrative: Bilateral flank tenderness. Extremity normal to inspection and full ROM General Extremety ED: Negative for edema General Extremity: Negative for edema Neuro oriented x3 and CN's II-XII intact bilaterally Sensorium / Orientation: alert, oriented to person, oriented to place and oriented to time; Negative for confused or lethargic Motor Exam: strength 5/5 throughout Psych mental status grossly normal Appearance: Negative for unkempt Skin no rashes or lesions noted and no wounds General Skin Exam: Negative for jaundice or pallor Rashes: No rashes noted Trauma: Negative for other MDM MDM MDM Narrative Medical decision making narrative: 73-year-old female UTI with urine culture showing sensitivity to Bactrim and IV antibiotics. She has been on Macrobid. Screening labs to be obtained. CAT scan for possible kidney stone or renal abscess or pyelonephritis. Repeat exam patient is doing well at 10:10 PM. We went over her test results. She is comfortable being discharged to home. Given the recent culture even though her UA tonight looks good. She replacedon Bactrim DS p.o. 1 twice dailyfor a week. Follow-up with her primary care physician. The recent culture saidthat the bacteria was resistant to Macrobid which she has been on. She and daughter are comfortable with her being discharged to home. History & Record Review Discussion w/independent historian: Patient and Family Additional record(s) reviewed:: Prior inpatient record, Prior outpatient record,Prior ED visit and Prior labs Lab Data Attestation: I reviewed the patient's lab results. Lab results narrative: CBC normal white count of 10.5. H&H 13 and 40. Platelets 228. Electrolytes show sodium 136. Gap 12. BUN and creatinine of 31 and 1.25 which is her baseline. Glucose 112. UA shows no nitrites. No white or red cells. No bacteria. CAT scan shows no acute abnormality. Stones in the kidneys. No acute stone. No pyelonephritis. No renal abscess. Labs: Laboratory Results - last 24 hr 09/26/24 09/26/24 19:45 20:00 WBC 10.5 RBC 5.00 Hgb 13.0 Hct 40.6 MCV 81.2 MCH 26.0 L MCHC 32.0 RDW Std Deviation 42.4 RDW Coeff of Tara 14.6 Plt Count 220 MPV 10.5 Immature Gran % (Auto) 0.400 Neut % (Auto) 58.9 Lymph % (Auto) 29.5 Lamar % (Auto) 8.5 Eos % (Auto) 2.2 Baso % (Auto) 0.5 Absolute Neuts (auto) 6.2 Absolute Lymphs (auto) 3.09 Nucleated RBC % 0 Sodium 136 Potassium 4.1 Chloride 99 Carbon Dioxide 24.0 Anion Gap 12 BUN 31 H Creatinine 1.25 H Estim Creat Clear Calc 51.40 Est GFR (MDRD) Non-Af 46 L BUN/Creatinine Ratio 24.6 H Glucose 112 H Calcium 9.6 Urine Color Yellow Urine Clarity Clear Urine pH 6.[address] [place] 1.020 Urine Protein 15 H Urine Glucose (UA) Normal Urine Ketones Negative Urine Occult Blood Negative Urine Nitrite Negative Urine Bilirubin Negative Urine Urobilinogen Normal Ur Leukocyte Esterase 25 H Urine RBC 0 SEEN Urine WBC 0 SEEN Ur Squamous Epith Cells 0-5 SEEN Urine Bacteria 0 SEEN Urine Mucus 0 SEEN Radiography Diagnostic Testing: Clinical Impression(s) from Imaging Studies Abdomen/Pelvis CT 09/26/24 20:29 IMPRESSION: No acute intra-abdominal abnormality. Reading Location: [id number] Discharge Plan Triage Chief Complaint: Complaint ED Provider: Micah Young Dx/Rx/DC Orders Clinical Impression: Acute UTI, History of diabetes mellitus, History of chronic kidney disease Instructions: ED UTIs Women Prescriptions: New sulfamethoxazole-trimethoprim [Bactrim DS] 800-160 mg tablet 1 tab PO BID 7 Days Qty: 14 0RF No Action ascorbate calcium (vitamin C) 500 mg tablet 500 mg PO DAILY losartan 100 mg tablet 100 mg PO QDAY Qty: 30 5RF cyanocobalamin (vitamin B-12) Tablet,Chewable 1 tab PO DAILY magnesium gluconate 12.5 mg magne- sium (250 mg) Tablet 250 mg PO DAILY famotidine [Pepcid] 20 mg tablet 20 mg PO BID 14 Days Qty: 28 0RF multivitamin Tablet 1 tab PO DAILY Qty: 90 3RF potassium citrate 99 mg capsule 99 mg PO DAILY Qty: 90 3RF lovastatin 20 mg tablet 20 mg PO QHS Qty: 90 3RF omeprazole 20 mg capsule,delayed release(DR/EC) 20 mg PO DAILY Qty: 90 3RF insulin glargine [Lantus Solostar U-100 Insulin] 100 unit/mL (3 mL) insulin pen 50 unit subcut DAILY Qty: 45 1RF (DME) FreeStyle Ty 3 Plus Sensor Device See Rx Instructions .Route Qty: 6 1RF Rx Instructions: As directed Fiasp FlexTouch U-100 Insulin 100 unit/mL (3 mL) insulin pen 35 unit subcut TID Qty: 94.5 1RF Mounjaro 15 mg/0.5 mL pen injector 15 mg subcut QWEEK Qty: 6 1RF levothyroxine 200 mcg tablet 200 mcg PO .Mon-Sat Qty: 90 3RF nitrofurantoin monohyd/m-cryst [Macrobid] 100 mg capsule 100 mg PO BID Qty: 14 0RF Rx Instructions: must administer with a meal/food Primary Care Provider: Allison Gomez Referrals: Allison Gomez MD [Primary Care Provider] - 3-5 Days Activity Restrictions/Additional Instructions: Plenty of fluids and rest. Cranberry juice. Tylenol for pain. Follow-up with your doctor. Stop the current antibiotic Macrobid. Start the Bactrim 1 pill twice a day tillgone. Your labs and CAT scan look good tonight. Print Language: Syrian Disposition Disposition: Home, Self Care What to do if you have Problems For any increased pain, shortness of breath, bleeding, nausea or vomiting, chestpain, or any unexpected problems, contact your Primary Care Provider. Call [facility] ([phone]) or report tothe closest Emergency Room. Call 911 if necessary. 09/26/24 3811 Cosigner Signature (if applicable): CC: Dr. Allison Gomez MD ~ Signed [facility]07-15-2025 Radiology Diagnostic study note [facility] Imaging Services [address] [place], [place] [address] Abdomen/Pelvis without Cont MR#: [id number] Acct: [id number] Name: NIMO MCCLOUD Rep #: [id number] : 1950 F 73 From: Cheryl Bradley MD PCP: Dr. Allison Gomez MD Status: REG ER Study:Abdomen/Pelvis without Cont Date of Exa m: 09/26/24 Exam# [id number] Ordering Dr: Nedra Young MD PROCEDURE: ABDOMEN/PELVIS WITHOUT CONT 09/26/2024 REASON FOR EXAM: PAIN TECHNIQUE: ABDOMEN/PELVIS WITHOUT CONT Noncontrast technique limits evaluation of the abdominal and pelvic viscera. Coronal and Sagittal reconstruction series were provided. One or more dose reduction techniques were used (e.g., Automated exposure control, adjustment of the mA and/or kV according to patient size, use of iterative reconstruction technique). RADIATION DOSE SUMMARY: CTDlvol: 22.9 mGy DLP: 1220 mGycm COMPARISON: CT abdomen and pelvis on 05/07/2024 FINDINGS: Lung bases: Mild cardiomegaly with coronary calcifications. Lung bases are clear. Liver: Unremarkable Gallbladder: Surgically absent. Spleen: Unremarkable Pancreas: Normal size. No surrounding inflammation. Adrenals: Unremarkable Kidneys: Punctate nonobstructing stone in the right kidney measuring 2 mm, unchanged. No hydronephrosis. Bladder: Unremarkable Reproductive Organs: Prior hysterectomy. Adnexal regions are unremarkable. Bowel: No obstruction or inflammation. Colonic diverticulosis. Normal appendix. Lymph nodes: There are few prominent subcentimeter retroperitoneal lymph nodes, unchanged. Vasculature: Mild diffuse atherosclerotic calcifications are noted. Bones: Degenerative changes of the spine. Soft tissues: Stranding in the abdominal wall, unchanged and possibly related tosubcutaneous injections. CT/Abdomen/Pelvis without Cont IMPRESSION: No acute intra-abdominal abnormality. Reading Location: [facility] CC: Dr. Micah Young MD; Dr. Allison Gomez MD ~ Chief Administrative Officer: Signed [facility]07-15-2025 Discharge summary Author Micah Young [facility] Note Date/Time September 26, 2024 10:1 5pm [facility] Medical Records Department [address] [place] [address] Emergency Department Summary 09/26/24 MR#: [id number] Acct: [id number] Name: NIMO MCCLOUD Rep #:[id number] : 1950 73 From: Micah Young MD PCP: Dr. Allison Gomez MD Status:REG ER Location: ED HPI HPI - Female History of Present Illness Chief Complaint: Complaint Informant: patient Narrative Narrative: 73-year-old female history of hypertension, UTIs with some being drug-resistant ESBL, chronic kidney disease diabetes. Was diagnosed a UTI about 10+ days ago. Started on Macrobid. Took it for 7 days. Finished it a week ago last Wednesday. Was not feeling better. Followed up with her primary care physician. He put her on 7 more days of Macrobid to the urine culture. Urine cultures returned ESBL E. coli sensitive to Bactrim and IV antibiotics. Patient house complainingof flank pain and some nausea. Has had kidney stones in the past. Prior similar symptoms: Yes Recent Illness/Hospitalization: No [facility] Medical History History of ESBL E. coli infection Obesity Urinary urgency Wears glasses Wears dentures Alcohol use Arthritis Easy bruising Restless legs Dietary restriction History of diverticulitis Shortness of breath on exertion Chronic cough Leg cramps History of edema History of echocardiogram History of stress test History of colon polyps GERD (gastroesophageal reflux disease) BiPAP (biphasic positive airway pressure) dependence Pyelonephritis Non-smoker Low back pain ANISHA (obstructive sleep apnea) Asthma Diarrhea Diabetes Shoulder pain Hemorrhoids Kidney disease Cancer HTN (hypertension) Hyperlipidemia Home Medications ?Medication ?Instructions ?Recorded ?Last Taken ?Type multivitamin 1 tab PO DAILY #90 tabs 08/03 Unknown Rx potassium citrate 99 mg capsule 99 mg PO DAILY #90 cap s 02/16/22 Unknown Rx cyanocobalamin (vitamin B-12) 1 tab PO DAILY 06/03/22 Unknown History magnesium gluconate 12.5 mg 250 mg PO DAILY 06/03/22 U nknown History magnesium (250 mg) tablet lovastatin 20 mg tablet 20 mg PO QHS cholesterol #90 tabs 03/23/23 Unknown Rx omeprazole 20 mg capsule,delayed 20 mg PO DAILY GERD # 90 caps 03/23/23 Unknown Rx release ascorbate calcium (vitamin C) 500 500 mg PO DAILY 09/12 04/07 Unknown History mg tablet losartan 100 mg tablet 100 mg PO QDAY #30 tabs 12/07 Unknown Rx Lantus Solostar U-100 Insulin 100 50 unit (0.5 mL) sub cut DAILY #45 04/10/24 Unknown Rx unit/mL (3 mL) subcutaneous pen mL (insulin glargine) blood-glucose sensor (FreeStyle #6 ea 04/10/24 Unknown Rx Ty 3 Plus Sensor device) insulin aspart 35 unit subcut TID #94.5 mL 04/13/24 Unknown Rx (niacinamide)(U-100) 100 unit/mL(3 mL) subcutaneous pen (Fiasp FlexTouch U-100 Insulin) famotidine 20 mg tablet (Pepcid) 20 mg PO BID 14 days #28 tabs 05/07/24 Unknown Rx tirzepatide 15 mg/0.5 mL 15 mg (0.5 mL) subcut QWEEK #6 mL 07/24/24 Unknown Rx subcutaneous pen injector (Mounjaro) levothyroxine 200 mcg tablet 200 mcg PO .Mon-Sat #90 t abs 07/31/24 Unknown Rx nitrofurantoin 100 mg PO BID #14 caps 09/22 Unknown Rx monohydrate/macrocrystals 100 mg capsule (Macrobid) sulfamethoxazole 800 1 tab PO BID 7 days #14 tabs 09/26/24 Unknown Rx mg-trimethoprim 160 mg tablet (Bactrim DS) Allergy/AdvReac Type Severity Reaction Status Date / Time ciprofloxacin (From Cipro) Allergy Mild Rash Verified 09/26/24 19:36 ondansetron HCl (From Zofran Allergy Rash Verified 09/26/24 19:36 (as hydrochloride)) oxycodone HCl (From Percocet) Allergy Rash Verified 09/26/24 19:36 Penicillins (PCN) Allergy Other Verified 09/26/24 19:36 propoxyphene napsylate (From Allergy Rash Verified 09/26/24 19:36 Darvocet-N 100) nickel AdvReac Intermediate Rash Verified 09/26/24 19:36 Family History Father Colon cancer Myocardial infarction Diabetes Hypertension Hyperlipemia Grandmother No problems noted. Mother Colon cancer Cancer Heart disease CVA (cerebral vascular accident) Diabetes Thyroid disorder Hypertension Myocardial infarction Hyperlipemia Brother Colon cancer Unknown Breast cancer 2 cousins Uncle Colon cancer Surgical History History of laparoscopy History of oral surgery H/O: hysterectomy History of cholecystectomy History of colonoscopy (~08/14/19) History of esophagogastroduodenoscopy (EGD) S/P colonoscopy S/P wrist surgery S/P hysterectomy Stone, kidney Status post laparoscopic cholecystectomy Social History Smoking Status: Never smoker second hand exposure: No alcohol intake: current alcohol intake frequency: holidays/special occasions only substance use type: does not use caffeine: Yes what type of physical activity do you participate in: none frequency: does not exercise ROS ROS ED ROS Narrative Bilateral flank pain. Fever. Nausea. Constitutional Constitutional ED: Reports chills and fever(s) Eyes Eyes: Denies blurry vision ENT ENT ED: Denies ear pain Cardiovascular Cardiovascular: Denies chest pain Respiratory/Chest Respiratory/Chest: Denies cough or dyspnea Gastrointestinal Gastrointestinal: Reports nausea; Denies abdominal pain, diarrhea or vomiting Genitourinary Genitourinary ED: Denies dysuria or hematuria Musculoskeletal Musculoskeletal: Denies arthralgias or myalgias Integumentary Denies abscess or Abrasions Neurologic Neurologic: Denies headache(s) Psychiatric Psychiatric: Denies anxiety or depression Endocrine Endocrinology: Denies heat intolerance Hematologic/Lymphatic Hematologic/Lymphatic: Denies easy bleeding or easy bruising Allergic/Immunologic Allergic/Immunologic ED: Denies mouth swelling, tongue swelling or urticaria EXAM Physical Exam Narrative Exam Narrative: Well-appearing 73-year-old female. Vital signs stable afebrile. Does not look septic toxic. Currently no acute distress. H EENT exam pupils round react to light. Moist mucous membranes. Neck nontender no JVD. No lymphadenopathy. Lungs clear to auscultation bilaterally. Heart regular rhythm no murmur rate about 65. Chest wall ribs nontender. Abdomen soft nontender. No peritoneal signs. Moving all 4 extremities. Normal strength. Nontender. No edema or cords in the lower extremities. Back mild bilateral CVA tenderness. Neurologically patient is awake alert. Answer questions following commands. Const Vital Signs: 09/26/24 19:33 09/26/24 19:35 09/26/24 21:00 Temperature 97.8 F 97.8 F 97.8 F Temperature Source Oral Oral Oral Pulse Rate 66 66 70 Respiratory Rate 14 14 20 H Blood Pressure 158/61 H 158/61 H 126/59 H Blood Pressure Mean 93 93 81 Pulse Ox 98 98 96 Oxygen Delivery Method Room Air Room Air Room Air Positive well nourished and well developed; Negative for cachectic, contracturesor unkempt General Appearance ED: well developed and NAD; Negative for unkempt, cachectic, contractures or pallor Nutritional Appearance: Negative for cachectic HEENT Reports moist mucous membranes Negative for trauma or tenderness Eyes PERRL and EOMs intact bilaterally General Eye ED: Negative for pale conjunctiva or scleral icterus Neck no lymphadenopathy, supple and no JVD Chest Wall inspection of chest normal and palpation of chest normal Resp normal respiratory effort and clear to auscultation bilaterally Cardio regular rate, regular rhythm, S1 normal heart sound, no murmurs and no JVD GI normal to inspection, nondistended, normoactive bowel sounds, soft to palpation,non-tender, non-distended and no masses Auscultation: normoactive bowel sounds Palpation: Negative for tender or guarding Back/Spine Negative for no CVA tenderness Back/Spine Narrative: Bilateral flank tenderness. Extremity normal to inspection and full ROM General Extremety ED: Negative for edema General Extremity: Negative for edema Neuro oriented x3 and CN's II-XII intact bilaterally Sensorium / Orientation: alert, oriented to person, oriented to place and oriented to time; Negative for confused or lethargic Motor Exam: strength 5/5 throughout Psych mental status grossly normal Appearance: Negative for unkempt Skin no rashes or lesions noted and no wounds General Skin Exam: Negative for jaundice or pallor Rashes: No rashes noted Trauma: Negative for other MDM MDM MDM Narrative Medical decision making narrative: 73-year-old female UTI with urine culture showing sensitivity to Bactrim and IV antibiotics. She has been on Macrobid. Screening labs to be obtained. CAT scan for possible kidney stone or renal abscess or pyelonephritis. Repeat exam patient is doing well at 10:10 PM. We went over her test results. She is comfortable being discharged to home. Given the recent culture even though her UA tonight looks good. She replaced on Bactrim DS p.o. 1 twice dailyfor a week. Follow-up with her primary care physician. The recent culture saidthat the bacteria was resistant to Macrobid which she has been on. She and daughter are comfortable with her being discharged to home. History & Record Review Discussion w/independent historian: Patient and Family Additional record(s) reviewed:: Prior inpatient record, Prior outpatient record,Prior ED visit and Prior labs Lab Data Attestation: I reviewed the patient's lab results. Lab results narrative: CBC normal white count of 10.5. H&H 13 and 40. Platelets 228. Electrolytes show sodium 136. Gap 12. BUN and creatinine of 31 and 1.25 which is her baseline. Glucose 112. UA shows no nitrites. No white or red cells. No bacteria. CAT scan shows no acute abnormality. Stones in the kidneys. No acute stone. No pyelonephritis. No renal abscess. Labs: Laboratory Results - last 24 hr 09/26/24 09/26/24 19:45 20:00 WBC 10.5 RBC 5.00 Hgb 13.0 Hct 40.6 MCV 81.2 MCH 26.0 L MCHC 32.0 RDW Std Deviation 42.4 RDW Coeff of Tara 14.6 Plt Count 220 MPV 10.5 Immature Gran % (Auto) 0.400 Neut % (Auto) 58.9 Lymph % (Auto) 29.5 Lamar % (Auto) 8.5 Eos % (Auto) 2.2 Baso % (Auto) 0.5 Absolute Neuts (auto) 6.2 Absolute Lymphs (auto) 3.09 Nucleated RBC % 0 Sodium 136 Potassium 4.1 Chloride 99 Carbon Dioxide 24.0 Anion Gap 12 BUN 31 H Creatinine 1.25 H Estim Creat Clear Calc 51.40 Est GFR (MDRD) Non-Af 46 L BUN/Creatinine Ratio 24.6 H Glucose 112 H Calcium 9.6 Urine Color Yellow Urine Clarity Clear Urine pH 6.[address] [place] 1.020 Urine Protein 15 H Urine Glucose (UA) Normal Urine Ketones Negative Urine Occult Blood Negative Urine Nitrite Negative Urine Bilirubin Negative Urine Urobilinogen Normal Ur Leukocyte Esterase 25 H Urine RBC 0 SEEN Urine WBC 0 SEEN Ur Squamous Epith Cells 0-5 SEEN Urine Bacteria 0 SEEN Urine Mucus 0 SEEN Radiography Diagnostic Testing: Clinical Impression(s) from Imaging Studies Abdomen/Pelvis CT 09/26/24 20:29 IMPRESSION: No acute intra-abdominal abnormality. Reading Location: [facility] Discharge Plan Triage Chief Complaint: Complaint ED Provider: Micah Young Dx/Rx/DC Orders Clinical Impression: Acute UTI, History of diabetes mellitus, History of chronic kidney disease Instructions: ED UTIs Women Prescriptions: New sulfamethoxazole-trimethoprim [Bactrim DS] 800-160 mg tablet 1 tab PO BID 7 Days Qty: 14 0RF No Action ascorbate calcium (vitamin C) 500 mg tablet 500 mg PO DAILY losartan 100 mg tablet 100 mg PO QDAY Qty: 30 5RF cyanocobalamin (vitamin B-12) Tablet,Chewable 1 tab PO DAILY magnesium gluconate 12.5 mg magne- sium (250 mg) Tablet 250 mg PO DAILY famotidine [Pepcid] 20 mg tablet 20 mg PO BID 14 Days Qty: 28 0RF multivitamin Tablet 1 tab PO DAILY Qty: 90 3RF potassium citrate 99 mg capsule 99 mg PO DAILY Qty: 90 3RF lovastatin 20 mg tablet 20 mg PO QHS Qty: 90 3RF omeprazole 20 mg capsule,delayed release(DR/EC) 20 mg PO DAILY Qty: 90 3RF insulin glargine [Lantus Solostar U-100 Insulin] 100 unit/mL (3 mL) insulin pen 50 unit subcut DAILY Qty: 45 1RF (DME) FreeStyle Ty 3 Plus Sensor Device See Rx Instructions .Route Qty: 6 1RF Rx Instructions: As directed Fiasp FlexTouch U-100 Insulin 100 unit/mL (3 mL) insulin pen 35 unit subcut TID Qty: 94.5 1RF Mounjaro 15 mg/0.5 mL pen injector 15 mg subcut QWEEK Qty: 6 1RF levothyroxine 200 mcg tablet 200 mcg PO .Mon-Sat Qty: 90 3RF nitrofurantoin monohyd/m-cryst [Macrobid] 100 mg capsule 100 mg PO BID Qty: 14 0RF Rx Instructions: must administer with a meal/food Primary Care Provider: Allison Gomez Referrals: Allison Gomez MD [Primary Care Provider] - 3-5 Days Activity Restrictions/Additional Instructions: Plenty of fluids and rest. Cranberry juice. Tylenol for pain. Follow-up with your doctor. Stop the current antibiotic Macrobid. Start the Bactrim 1 pill twice a day tillgone. Your labs and CAT scan look good tonight. Print Language: Syrian Disposition Disposition: Home, Self Care What to do if you have Problems For any increased pain, shortness of breath, bleeding, nausea or vomiting, chestpain, or any unexpected problems, contact your Primary Care Provider. Call [facility] ([phone]) or report to the closest Emergency Room. Call 911 if necessary. 09/26/245 <Electronically signed by Micah Young MD> Cosigner Signature (if applicable): CC: Dr. Allison Gomez MD ~ Signed [facility] Work Phone: [phone]) 914-441605-07-2025 Procedure note [facility] Pulmonary Services/Neurology [address] [place] [address] MR#: [id number] Acct: [id number] Name: NIMO MCCLOUD Rep #:[id number] : 1950 73 From: Mary Alice Pablo MD Referring Dr: Jad Joe DPM atus: REG CLI Location: PSN Date: 07/19/24 Sex: F C NCS and/or EMG Patient Report Ordering Doctor: Jad Joe DATE OF SERVICE: 07/19/24 Presents with complaints of sharp shooting pains in the left lower limb as well as numbness and tingling in both feet. Electrodiagnostic findings: Left peroneal motor nerve demonstrates prolonged latency with normal amplitude and reduced conduction velocity. Right peroneal motor nerve demonstrates normal distal latency and amplitude with reduced conduction velocity. Tibial motor response demonstrates prolonged latency bilaterally with reduced amplitude and conduction velocity. Prolonged left sural latency is noted prolonged superficial peroneal latency bilaterally. H reflex is within normal limits. F waves are prolonged bilaterally. Needle EMG testing was performed the lower limbs. All muscles tested showed no evidence ofdenervation with normal motor unit potentials. Electrodiagnostic impression: This an abnormal study in the lower limbs. 1. 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 2. No electrodiagnostic evidence is noted for lumbosacral radiculopathy. Multi Select Codes Neurology Neurology Interp Codes: 16438-56 Musc test done w/n test comp (interp) (2) and 50836-28 Nrv cndj test 9-10 studies (interp) 07/19/24 1501 D> Date _ Mary Alice Pablo MD CC: DPM Dr. Jad Joe; Dr. Mary Alice Pablo MD; Dr. Allison Gomez MD ~ Date Dictated: 07/19/241455 Date Transcribed: 07/19/241455 Chief Administrative Officer: CHANTELLE Garcia [facility]04-10-2025 Evaluation note* Diagnosis Onset Date Resolution Status Admit Date BMI 45.0-49.9, adult chronic Apri l 2024 10:04am Chronic kidney disease chronic Ap ril 2024 10:04am Diabetes chronic June 22 10:04am Dyslipidemia chronic June 22, 2024 10:04am HTN (hypertension) chronic June 22, 2024 10:04am Hypothyroidism chronic June 10:04am Thyroid nodule chronic June 10:04am [facility] Work Phone: 1(164) 614-511501-09-2025 Evaluation note* Diagnosis Onset Date Resolution Status Admit Date Chronic kidney disease chronic Ja nuary 2024 10:40am DM2 (diabetes mellitus, type 2) 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 March 23, 2024 10:40am HTN (hypertension) chronic Maruar y 2024 10:40am Hyperlipidemia chronic March 10:40am Hypothyroidism chronic March 10:40am Morbid obesity chronic March 10:40am Thyroid nodule chronic March 10:40am Vitamin D deficiency chronic Gregg mike 2024 10:40am BMI 45.0-49.9, adult chronic Apri l 2024 10:04am Chronic kidney disease chronic Ap ril 2024 10:04am Diabetes chronic June 22 10:04am Dyslipidemia chronic June 22, 2024 10:04am HTN (hypertension) chronic June 22, 2024 10:04am Hypothyroidism chronic June 10:04am Thyroid nodule chronic June 10:04am [facility] Work Phone: 1(672) 246-493905-28-[address] Schwiger [facility] August 09, 2022 7:54pm Note Date/Time August 09, 2022 6:45p m [facility] Medical Records Department [address] [place] [address] Emergency Department Summary 08/09/22 MR#: [id number] Acct: [id number] Name: NIMO MCCLOUD Rep #:[id number] : 1950 71 From: Annel JACKSON PCP: Dr. Allison Gomez MD Status:REG ER Location: ED ADDENDUM by Dr. Mele Small, DO on 08/09/22 at 1954 I have personally performed a face to face assessment of the patient and have reviewed the DEBBIE Note. I performed a substantive portion of the visit including all aspects of the following. My thayer findings include: History: Patient presents with a dog bite to her left great toe that occurred today. Patient states it was her daughter's dog who bit her. Patient states the bleeding stopped after several minutes of pressure. Patient states the bitewas around the toenail of her left great toe. Patient states the dog's immunizations are up-to-date. Patient is unsure of her last tetanus but thinks it was more than 10 years ago. Patient denies any paresthesias or weakness. Patient denies any other injuries. Exam: Vital signs are stable. Patient is afebrile. Patient is in no acute distress. Skin is warm and dry. There is some blood noted along the nail margin of the left great toenail. There are no lacerations requiring suture repair. There is some loosening of the nail plate itself. There is full range of motion. Sensation was intact to light touch in all digits. Capillary refillwas less than 2 seconds in all digits. Pedal pulses are equal bilaterally. Medical Decision Making: Differential diagnosis includes open fracture, nail plate avulsion, and dog bite. X-rays of the left great toe were obtained to assess for fracture. There are 3 views. On my independent interpretation, there is no acute fracture or dislocation. Radiologist also interpreted the x-rays and agrees. Bacitracin dressing was applied to the wound. Patient was given a prescription for clindamycin. Patient was given her first dose here. Patient was instructed to keep the wound clean and dry. Patient was instructed to follow-up with her primary care physician in 5 to 7 days. Patient understoodand was agreeable with the plan. All questions were answered. 08/09/221953<Electronically signed by Mele Small DO> Cosigner Signature (if applicable): cc: Dr. Allison Gomez MD ~* Signed HPI History of Present Illness Chief Complaint: Bite Narrative Narrative: Patient was bit by her daughter's pitbull mix on her left great toe prior to arrival. She thinks the dog got her paw stuck in the deck because it started freaking out and then bit her shoe because her foot was close by. It ripped part of her great toenail up she had some bleeding. She denies weakness numbness or tingling. She is insulin-dependent diabetic. [facility] Medical History (Updated 08/09/22 @ 19:45 by RENETTA Santamaria) Alcohol use Arthritis Asthma BiPAP (biphasic positive airway pressure) dependence Cancer Chronic cough Diabetes Diarrhea Dietary restriction Easy bruising GERD (gastroesophageal reflux disease) Hemorrhoids History of colon polyps History of diverticulitis History of echocardiogram History of edema History of stress test HTN (hypertension) Hyperlipidemia Kidney disease Leg cramps Low back pain Non-smoker Obesity ANISHA (obstructive sleep apnea) Pyelonephritis Restless legs Shortness of breath on exertion Shoulder pain Urinary urgency Wears dentures Wears glasses Home Medications losartan 100 mg-hydrochlorothiazide 12.5 mg tablet 1 tab PO DAILY HTN #90 tabs 02/16/22 [Rx Last Taken Unknown] lovastatin 20 mg tablet 20 mg PO QHS cholesterol #90 tabs 02/16/22 [Rx Last Taken Unknown] metformin 500 mg tablet,extended release 24 hr 500 mg PO BID #180 tabs 02/16/22 [Rx Last Taken Unknown] multivitamin 1 tab PO DAILY #90 tabs 02/16/22 [Rx Last Taken Unknown] omeprazole 20 mg capsule,delayed release 20 mg PO DAILY GERD #90 caps 02/16/22 [Rx Last Taken Unknown] potassium citrate 99 mg capsule 99 mg PO DAILY #90 caps 02/16/22 [Rx Last Taken Unknown] insulin aspart U-100 100 unit/mL (3 mL) subcutaneous pen (Novolog FlexPen U-100 Insulin aspart) 25 unit (0.25 mL) subcut TID 90 days #67.5 mL 05/04/22 [Rx Last Taken Unknown] insulin glargine 100 unit/mL (3 mL) subcutaneous pen (Lantus Solostar U-100 Insulin) 60 unit (0.6 mL) subcut BID 90 days #108 mL 05/04/22 [Rx Last Taken Unknown] aspirin 81 mg tablet,delayed release 81 mg PO BID 06/03/22 [History Last Taken Unknown] cyanocobalamin (vitamin B-12) 1 tab PO DAILY 06/03/22 [History Last Taken Unknown] docusate sodium 100 mg capsule 100 mg PO BID 06/03/22 [History Last Taken Unknown] magnesium gluconate 12.5 mg magnesium (250 mg) tablet 250 mg PO DAILY 06/03/22 [History Last Taken Unknown] oxycodone-acetaminophen 5 mg-325 mg tablet 1 tab PO BID PRN Pain 06/03/22 [History Last Taken Unknown] flash glucose sensor (FreeStyle Ty 14 Day Sensor kit) #2 ea 06/22/22 [Rx Last Taken Unknown] Farxiga 10 mg tablet (dapagliflozin) 10 mg PO DAILY #30 tabs 06/24/22 [Rx Last Taken Unknown] Trulicity 3 mg/0.5 mL subcutaneous pen injector (dulaglutide) 3 mg (0.5 mL) subcut QWEEK #2 mL 06/24/22 [Rx Last Taken Unknown] blood-glucose sensor ([employer] G7 Sensor device) #3 ea 06/24/22 [Rx Last Taken Unknown] nitrofurantoin monohydrate/macrocrystals 100 mg capsule (Macrobid) 100 mg PO BID#14 caps 06/24/22 [Rx Last Taken Unknown] levothyroxine 200 mcg tablet 200 mcg PO DAILY #90 tabs 08/05/22 [Rx Last Taken Unknown] clindamycin HCl 150 mg capsule 450 mg PO TID 7 days #63 caps 08/09/22 [Rx Last Taken Unknown] Allergy/AdvReac Type Severity Reaction Status Date / Time ciprofloxacin [From Cipro] Allergy Mild Rash Verified 08/09/22 18:27 ondansetron HCl Allergy Rash Verified 08/09/22 18:27 [From Zofran (as hydrochloride)] oxycodone HCl [From Percocet] Allergy Rash Verified 08/09/22 18:27 Penicillins [PCN] Allergy Other Verified 08/09/22 18:27 propoxyphene napsylate Allergy Rash Verified 08/09/22 18:27 [From Darcet-N 100] shellfish derived Allergy Rash Verified 08/09/22 18:27 nickel AdvReac Intermediate Rash Verified 08/09/22 18:27 Family History Father Colon cancer Myocardial infarction Diabetes Hypertension Hyperlipemia Grandmother No problems noted. Mother Colon cancer Cancer Heart disease CVA (cerebral vascular accident) Diabetes Thyroid disorder Hypertension Myocardial infarction Hyperlipemia Brother Colon cancer Unknown Breast cancer 2 cousins Uncle Colon cancer Surgical History H/O: hysterectomy History of cholecystectomy History of colonoscopy (~08/14/19) History of esophagogastroduodenoscopy (EGD) History of laparoscopy History of oral surgery S/P colonoscopy S/P hysterectomy S/P wrist surgery Status post laparoscopic cholecystectomy Stone, kidney Social History Smoking Status: Never smoker second hand exposure: No alcohol intake: current alcohol intake frequency: holidays/special occasions only substance use type: does not use caffeine: Yes what type of physical activity do you participate in: none frequency: does not exercise ROS ROS ED ROS Narrative Constitutional: Negative for fever, chills, malaise. Neuro: Negative for motor/sensory dysfunction. Skin: Positive for wound. Musc: Positive for toe pain, trauma. EXAM Physical Exam Narrative Exam Narrative: CONST: Patient sitting in no acute distress. EYES: Normal inspection. NECK: Normal inspection. RESP: No respiratory distress, CTAB. CVS: Regular rate and rhythm, no murmur, no gallop. SKIN: Color normal, no rash, warm, dry, intact. EXTREMITIES: Left great toenail has onychomycosis, the distal portion is lifted up. The nail still feels firmly adhered but at the proximal matrix portion there is some dried blood. No subungual hematoma. She is tender over the greattoe with no deformity or crepitus. No other tenderness of the ankle and foot. Normal strength and sensation, 2+ DP pulse. NEURO: Oriented x4. PSYCH: Normal affect. Const Vital Signs: 08/09/22 18:26 Temperature 97.7 F L Temperature Source Temporal Pulse Rate 71 Respiratory Rate 16 Blood Pressure 138/63 H Blood Pressure Mean 88 Pulse Ox 99 Oxygen Delivery Method Room Air MDM MDM MDM Narrative Medical decision making narrative: History gathered from: Patient and daughter Patient has a dog bite to her left foot. It is partially lifted the great toenail and caused some bleeding from the proximal portion. There are no other lacerations of the skin. There is no swelling or bruising but she is tender over the great toe so I ordered an x-ray to rule out potential open fracture. X-ray is negative. Since she is penicillin allergic she was given clindamycin and Tdap updated. Since she is diabetic she was instructed to closely watch forany signs of infection that would warrant immediate return. I also provided podiatry follow-up and she was discharged in stable condition. Differential: Dog bite, open fracture Radiography Diagnostic Testing: Clinical Impression(s) from Imaging Studies Toe X-Ray 08/09/22 18:45 IMPRESSION: Negative left toe x-rays. Electronically Signed: Juan Diego Ritter MD at 19:23 EDT , ED attending interpretation of left great toe and foot shows no fracture or dislocation. Discharge Plan Triage Chief Complaint: Bite ED Midlevel Provider: Annel Calvert ED Provider: Mele Small Dx/Rx/DC Orders Clinical Impression: Dog bite of left foot, Avulsion of toenail of left foot Prescriptions: New clindamycin HCl 150 mg capsule 450 mg PO TID 7 Days Qty: 63 0RF No Action (DME) Dexcom G7 Sensor Device See Rx Instructions .Route Qty: 3 6RF Rx Instructions: As directed Trulicity 3 mg/0.5 mL pen injector 3 mg subcut QWEEK Qty: 2 5RF Farxiga 10 mg tablet 10 mg PO DAILY Qty: 30 6RF nitrofurantoin monohyd/m-cryst [Macrobid] 100 mg capsule 100 mg PO BID Qty: 14 0RF Rx Instructions: must administer with a meal/food oxycodone-acetaminophen 5-325 mg Tablet 1 tab PO BID PRN (Reason: Pain) aspirin [Aspir-81] 81 mg Tablet,Delayed Release (Dr/Ec) 81 mg PO BID docusate sodium 100 mg Capsule 100 mg PO BID cyanocobalamin (vitamin B-12) Tablet,Chewable 1 tab PO DAILY magnesium gluconate 12.5 mg magne- sium (250 mg) Tablet 250 mg PO DAILY losartan-hydrochlorothiazide 100-12.5 mg tablet 1 tab PO DAILY Qty: 90 3RF lovastatin 20 mg tablet 20 mg PO QHS Qty: 90 3RF metformin 500 mg tablet extended release 24 hr 500 mg PO BID Qty: 180 3RF multivitamin Tablet 1 tab PO DAILY Qty: 90 3RF omeprazole 20 mg capsule,delayed release(DR/EC) 20 mg PO DAILY Qty: 90 3RF potassium citrate 99 mg capsule 99 mg PO DAILY Qty: 90 3RF insulin aspart U-100 [Novolog FlexPen U-100 Insulin] 100 unit/mL (3 mL) insulin pen 25 unit subcut TID 90 Days Qty: 67.5 5RF Lantus Solostar U-100 Insulin 100 unit/mL (3 mL) insulin pen 60 unit subcut BID 90 Days Qty: 108 5RF (DME) FreeStyle Ty 14 Day Sensor Kit See Rx Instructions .ROUTE .MEDSUPPLY Qty: 2 3RF Rx Instructions: As directed levothyroxine 200 mcg tablet 200 mcg PO DAILY Qty: 90 1RF Primary Care Provider: Allison Gomez Referrals: Allison Gomez MD [Primary Care Provider] - Jose Jett DPM [Med Staff - Active Staff] - Activity Restrictions/Additional Instructions: Take the antibiotics and keep clean. Please follow-up with the foot doctor. Disposition Disposition: Home, Self Care What to do if you have Problems For any increased pain, shortness of breath, bleeding, nausea or vomiting, chestpain, or any unexpected problems, contact your Primary Care Provider. Call [facility] ([phone]) or report to the closest Emergency Room. Call 911 if necessary. 08/09/221946 <Electronically signed by Annel JACKSON> Cosigner Signature (if applicable): CC: Dr. Allison Gomez MD ~ Signed [facility] Work Phone: 1(422) 856-932603-22-[address] Sauceda [facility] June 03, 2022 6:56am Note Date/Time June 03, 2022 4:4 6am [facility] Medical Records Department [address] [place] [address] Emergency Department Summary 06/03/22 MR#: [id number] Acct: [id number] Name: NIMO MCCLOUD Rep #:[id number] : 1950 71 From: Juan Pablo Sauceda MD PCP: Dr. Allison Gomez MD Status:REG ER Location: ED HPI History of Present Illness Chief Complaint: Lower Extremity Injury Informant: patient Narrative Narrative: Patient had a left knee replacement about 1 week ago at [facility]. It has been painful. She has been recovering at home with the assistance of oxycodone. She had new calf pain 2-3 days ago and was seen here in the ED and had a ultrasound of her left lower extremity that was negative for DVT. This morning, she fell asleep in her recliner with her ice machine on her left knee and then woke up in the middle of the night and wanted to go to bed which is maybe 20 or 30 feet from the recliner. She was able to use her walker and had some assistance from family to get to the bed, she got in the bed reattach the ice machine and was okay, and then a short time after she got into bed, she started having increasing pain in the entire left lower extremity that did not improve with taking an oral oxycodone. Her daughter states she could not get her to put any weight on it which is what led her to call EMS, although she thennotes that upon their arrival she was able to put some weight on it to transfer to the EMS cot. She states it hurts from her buttock into her thigh as well as the calf and the knee. Denies back pain. Denies tomas numbness in her foot. Denies weakness. Denies chest pain or shortness of breath or fevers or chills or discharge from her incision or changes in the appearance of her leg at this time. [facility] Medical History Alcohol use Arthritis Asthma BiPAP (biphasic positive airway pressure) dependence Cancer Chronic cough Diabetes Diarrhea Dietary restriction Easy bruising GERD (gastroesophageal reflux disease) Hemorrhoids History of colon polyps History of diverticulitis History of echocardiogram History of edema History of stress test HTN (hypertension) Hyperlipidemia Hyperthyroidism Kidney disease Leg cramps Low back pain Non-smoker ANISHA (obstructive sleep apnea) Pyelonephritis Restless legs Shortness of breath on exertion Shoulder pain Wears dentures Wears glasses Home Medications dulaglutide 1.5 mg/0.5 mL subcutaneous pen injector (Trulicity) 1.5 mg (0.5 mL) subcut ESQUIVEL DM 90 days #6.5 mL 02/16/22 [Rx Last Taken Unknown] flash glucose sensor ([employer] Ty 14 Day Sensor kit) #2 ea 02/16/22 [Rx Last Taken Unknown] levothyroxine 200 mcg tablet 200 mcg PO DAILY #90 tabs 02/16/22 [Rx Last Taken Unknown] losartan 100 mg-hydrochlorothiazide 12.5 mg tablet 1 tab PO DAILY HTN #90 tabs 02/16/22 [Rx Last Taken Unknown] lovastatin 20 mg tablet 20 mg PO QHS cholesterol #90 tabs 02/16/22 [Rx Last Taken Unknown] magnesium oxide,aspartate,citr (Triple Magnesium Complex) 400 mg PO DAILY #90 caps 02/16/22 [Rx Last Taken Unknown] metformin 500 mg tablet,extended release 24 hr 500 mg PO BID #180 tabs 02/16/22 [Rx Last Taken Unknown] multivitamin 1 tab PO DAILY #90 tabs 02/16/22 [Rx Last Taken Unknown] omeprazole 20 mg capsule,delayed release 20 mg PO DAILY GERD #90 caps 02/16/22 [Rx Last Taken Unknown] potassium citrate 99 mg capsule 99 mg PO DAILY #90 caps 02/16/22 [Rx Last Taken Unknown] insulin aspart U-100 100 unit/mL (3 mL) subcutaneous pen (Novolog FlexPen U-100 Insulin aspart) 25 unit (0.25 mL) subcut TID 90 days #67.5 mL 05/04/22 [Rx Last Taken Unknown] insulin glargine 100 unit/mL (3 mL) subcutaneous pen (Lantus Solostar U-100 Insulin) 60 unit (0.6 mL) subcut BID 90 days #108 mL 05/04/22 [Rx Last Taken Unknown] aspirin 81 mg tablet,delayed release 81 mg PO BID 06/03/22 [History Last Taken Unknown] cyanocobalamin (vitamin B-12) 1 tab PO DAILY 06/03/22 [History Last Taken Unknown] docusate sodium 100 mg capsule 100 mg PO BID 06/03/22 [History Last Taken Unknown] magnesium gluconate 12.5 mg magnesium (250 mg) tablet 250 mg PO DAILY 06/03/22 [History Last Taken Unknown] oxycodone-acetaminophen 5 mg-325 mg tablet 1 tab PO BID PRN Pain 06/03/22 [History Last Taken Unknown] Allergy/AdvReac Type Severity Reaction Status Date / Time ciprofloxacin [From Cipro] Allergy Mild Rash Verified 06/03/22 04:37 ondansetron HCl Allergy Rash Verified 06/03/22 04:37 [From Zofran (as hydrochloride)] oxycodone HCl [From Percocet] Allergy Rash Verified 06/03/22 04:37 Penicillins [PCN] Allergy Other Verified 06/03/22 04:37 propoxyphene napsylate Allergy Rash Verified 06/03/22 04:37 [From Darvocet-N 100] shellfish derived Allergy Rash Verified 06/03/22 04:37 Family History Father Colon cancer Myocardial infarction Diabetes Hypertension Hyperlipemia Grandmother No problems noted. Mother Colon cancer Cancer Heart disease CVA (cerebral vascular accident) Diabetes Thyroid disorder Hypertension Myocardial infarction Hyperlipemia Brother Colon cancer Unknown Breast cancer 2 cousins Uncle Colon cancer Surgical History H/O: hysterectomy History of cholecystectomy History of colonoscopy (~08/14/19) History of esophagogastroduodenoscopy (EGD) History of laparoscopy History of oral surgery S/P colonoscopy S/P hysterectomy S/P wrist surgery Status post laparoscopic cholecystectomy Stone, kidney Social History Smoking Status: Never smoker second hand exposure: No alcohol intake: current alcohol intake frequency: holidays/special occasions only substance use type: does not use caffeine: Yes what type of physical activity do you participate in: none frequency: does not exercise ROS ROS ED Constitutional Constitutional ED: Denies chills or fever(s) Cardiovascular Cardiovascular: Denies chest pain or palpitations Respiratory/Chest Respiratory/Chest: Denies dyspnea or dyspnea on exertion Gastrointestinal Gastrointestinal: Reports nausea; Denies abdominal pain, diarrhea or vomiting Musculoskeletal Musculoskeletal: Reports extremity pain; Denies back pain or neck pain Integumentary Denies Abrasions, rash or wounds Neurologic Neurologic: Denies paresthesias or weakness EXAM Physical Exam Const Vital Signs: 06/03/22 04:29 06/03/22 05:51 06/03/22 06:27 Temperature 97.1 F L Temperature Source Temporal Pulse Rate 65 75 66 Respiratory Rate 18 15 15 Blood Pressure 153/64 H 128/47 H 142/58 H Blood Pressure Mean 93 74 Pulse Ox 96 93 99 Oxygen Delivery Method Room Air Room Air Positive well nourished and well developed General Appearance ED: well developed and NAD Neck full ROM and supple Resp normal respiratory effort GI non-tender and non-distended Inspection: Negative for abdominal distention Auscultation: normoactive bowel sounds Back/Spine normal ROM and normal to inspection Back/Spine Narrative: No spinal tenderness. No significant tenderness in the sciatic notch. Limited ability to do straight leg raises due to pain with fully extending/locking the left knee. Extremity Extremity Narrative: Left lower extremity: Brisk cap refill all toes, 2+/4 dorsalis pedis pulse, painless passive logroll of the left hip, limited range of motion of the knee due to pain, but able to perform short arc range of motion without difficulty. Dorsiflexion and plantarflexion of the ankle without difficulty or significant discomfort. There is what appears to be dependent postoperative ecchymosis distal to the knee in the proximal razo. There is mild calf tenderness, mild tenderness in the distal half of the thigh anteriorly and laterally, all compartments are soft and nondistended. There is no popliteal tenderness or tenderness around the anterior knee incision which appears benign without dehiscence, discharge, signs of infection. Neuro oriented x3, no focal motor deficits and no sensory deficits noted Sensorium / Orientation: alert Psych mental status grossly normal and thought process normal Skin Skin Narrative: Healing left knee anterior operative wounds see above Rashes: no rashes MDM MDM MDM Narrative Medical decision making narrative: I think this is much less likely venous thrombosis-related pain. The daughter states that she has been drinking fluids but not very well due to her pain, which tends to cause her to get nauseated. I suggested this may all be muscularpain, in addition to spasm, they both agree. Since the patient has an allergy to Zofran, and this hospital will not allow IV promethazine to be given, I had nursing place an IV so that we could give her IV Reglan and morphine, and I added IV fluids to that as well. On reevaluation patient is doing much better. Reassured, I do not think she needs any other testing or x-rays given the history. They are both in agreement. Patient discharged home after we verified she can bear weight and dowhat she was doing postoperatively prior to the increase in her pain. History & Record Review Discussion w/independent historian: EMS personnel, Patient and Family (Daughter) Discharge Plan Triage Chief Complaint: Lower Extremity Injury ED Provider: Juan Pablo Sauceda Dx/Rx/DC Orders Clinical Impression: Acute postoperative pain of left knee Instructions: Managing Post-Op Pain at Home Prescriptions: No Action oxycodone-acetaminophen 5-325 mg Tablet 1 tab PO BID PRN (Reason: Pain) aspirin [Aspir-81] 81 mg Tablet,Delayed Release (Dr/Ec) 81 mg PO BID docusate sodium 100 mg Capsule 100 mg PO BID cyanocobalamin (vitamin B-12) Tablet,Chewable 1 tab PO DAILY magnesium gluconate 12.5 mg magne- sium (250 mg) Tablet 250 mg PO DAILY Trulicity 1.5 mg/0.5 mL pen injector 1.5 mg subcut ESQUIVEL 90 Days Qty: 6.5 3RF Rx Instructions: every wednesday levothyroxine 200 mcg tablet 200 mcg PO DAILY Qty: 90 3RF Rx Instructions: take with 25mcg to equal 225mcg daily losartan-hydrochlorothiazide 100-12.5 mg tablet 1 tab PO DAILY Qty: 90 3RF lovastatin 20 mg tablet 20 mg PO QHS Qty: 90 3RF Triple Magnesium Complex 400 mg magnesium capsule 400 mg PO DAILY Qty: 90 3RF metformin 500 mg tablet extended release 24 hr 500 mg PO BID Qty: 180 3RF multivitamin Tablet 1 tab PO DAILY Qty: 90 3RF omeprazole 20 mg capsule,delayed release(DR/EC) 20 mg PO DAILY Qty: 90 3RF potassium citrate 99 mg capsule 99 mg PO DAILY Qty: 90 3RF (DME) FreeStyle Ty 14 Day Sensor Kit See Rx Instructions .ROUTE .MEDSUPPLY Qty: 2 3RF Rx Instructions: As directed insulin aspart U-100 [Novolog FlexPen U-100 Insulin] 100 unit/mL (3 mL) insulin pen 25 unit subcut TID 90 Days Qty: 67.5 5RF Lantus Solostar U-100 Insulin 100 unit/mL (3 mL) insulin pen 60 unit subcut BID 90 Days Qty: 108 5RF Primary Care Provider: Allison Gomez Referrals: Surgeon, your orthopedic [Other] - 3-5 Days if not improving (Or as scheduled, if within the next week) Disposition Disposition: Home, Self Care What to do if you have Problems For any increased pain, shortness of breath, bleeding, nausea or vomiting, chest pain, or any unexpected problems, contact your Primary Care Provider. Call [facility] ([phone]) or report to the closest Emergency Room. Call 911 if necessary. 06/03/22 0656 <Electronically signed by Juan Pablo Sauceda MD> Cosigner Signature (if applicable): CC: Dr. Allison Gomez MD ~ Signed [facility] Work Phone: [phone] 387-667103-18-[address] Calle [facility] May 30, 2022 4:42pm Note Date/Time May 30, 2022 4:4 2pm [facility] Medical Records Department [address] [place] [address] Emergency Department Summary 05/30/22 MR#: [id number] Acct: [id number] Name: NIMO MCCLOUD Rep #:[id number] : 1950 71 From: Darren Calle DO PCP: Dr. Allison Gomez MD Status:REG ER Location: ED HPI History of Present Illness Chief Complaint: Lower Extremity Injury Narrative Narrative: 62 old female presenting with left calf pain after total knee replacement on Wednesday. She states that she was sent by her surgeon from [facility] to go to urgent care. Her daughter is with her and states she knew that there was an marine diesel technician there and she brought her to the emergency room. Patient is complaining of left lateral calf pain. She had a total knee replacement Wednesday. Her knee does not look erythematous or warm to her. She can walk on it but it does hurt. Her surgeon for concern was for DVT. She has not had any chest pain or shortness of breath. [facility] Medical History Alcohol use Arthritis Asthma BiPAP (biphasic positive airway pressure) dependence Cancer Chronic cough Diabetes Diarrhea Dietary restriction Easy bruising GERD (gastroesophageal reflux disease) Hemorrhoids History of colon polyps History of diverticulitis History of echocardiogram History of edema History of stress test HTN (hypertension) Hyperlipidemia Hyperthyroidism Kidney disease Leg cramps Low back pain Non-smoker ANISHA (obstructive sleep apnea) Pyelonephritis Restless legs Shortness of breath on exertion Shoulder pain Wears dentures Wears glasses Home Medications dulaglutide 1.5 mg/0.5 mL subcutaneous pen injector (TrICU Metrix) 1.5 mg (0.5 mL) subcut ESQUIVEL DM 90 days #6.5 mL 02/16/22 [Rx Last Taken Unknown] flash glucose sensor (FreeStyle Ty 14 Day Sensor kit) #2 ea 02/16/22 [Rx Last Taken Unknown] levothyroxine 200 mcg tablet 200 mcg PO DAILY #90 tabs 02/16/22 [Rx Last Taken Unknown] losartan 100 mg-hydrochlorothiazide 12.5 mg tablet 1 tab PO DAILY HTN #90 tabs 02/16/22 [Rx Last Taken Unknown] lovastatin 20 mg tablet 20 mg PO QHS cholesterol #90 tabs 02/16/22 [Rx Last Taken Unknown] magnesium oxide,aspartate,citr (Triple Magnesium Complex) 400 mg PO DAILY #90 caps 02/16/22 [Rx Last Taken Unknown] metformin 500 mg tablet,extended release 24 hr 500 mg PO BID #180 tabs 02/16/22 [Rx Last Taken Unknown] multivitamin 1 tab PO DAILY #90 tabs 02/16/22 [Rx Last Taken Unknown] omeprazole 20 mg capsule,delayed release 20 mg PO DAILY GERD #90 caps 02/16/22 [Rx Last Taken Unknown] potassium citrate 99 mg capsule 99 mg PO DAILY #90 caps 02/16/22 [Rx Last Taken Unknown] insulin aspart U-100 100 unit/mL (3 mL) subcutaneous pen (Novolog FlexPen U-100 Insulin aspart) 25 unit (0.25 mL) subcut TID 90 days #67.5 mL 05/04/22 [Rx Last Taken Unknown] insulin glargine 100 unit/mL (3 mL) subcutaneous pen (Lantus Solostar U-100 Insulin) 60 unit (0.6 mL) subcut BID 90 days #108 mL 05/04/22 [Rx Last Taken Unknown] Allergy/AdvReac Type Severity Reaction Status Date / Time ciprofloxacin [From Cipro] Allergy Mild Rash Verified 05/30/22 16:05 ondansetron HCl Allergy Rash Verified 05/30/22 16:05 [From Zofran (as hydrochloride)] oxycodone HCl [From Percocet] Allergy Rash Verified 05/30/22 16:05 Penicillins [PCN] Allergy Other Verified 05/30/22 16:05 propoxyphene napsylate Allergy Rash Verified 05/30/22 16:05 [From Darvocet-N 100] shellfish derived Allergy Rash Verified 05/30/22 16:05 Family History Father Colon cancer Myocardial infarction Diabetes Hypertension Hyperlipemia Grandmother No problems noted. Mother Colon cancer Cancer Heart disease CVA (cerebral vascular accident) Diabetes Thyroid disorder Hypertension Myocardial infarction Hyperlipemia Brother Colon cancer Unknown Breast cancer 2 cousins Uncle Colon cancer Surgical History H/O: hysterectomy History of cholecystectomy History of colonoscopy (~08/14/19) History of esophagogastroduodenoscopy (EGD) History of laparoscopy History of oral surgery S/P colonoscopy S/P hysterectomy S/P wrist surgery Status post laparoscopic cholecystectomy Stone, kidney Social History Smoking Status: Never smoker second hand exposure: No alcohol intake: current alcohol intake frequency: holidays/special occasions only substance use type: does not use caffeine: Yes what type of physical activity do you participate in: none frequency: does not exercise ROS ROS ED Constitutional Constitutional ED: Denies chills or fever(s) Eyes Eyes: Denies change in vision or diplopia ENT ENT ED: Denies rhinorrhea or sore throat Cardiovascular Cardiovascular: Denies chest pain or palpitations Respiratory/Chest Respiratory/Chest: Denies cough or dyspnea Gastrointestinal Gastrointestinal: Denies abdominal pain or constipation Genitourinary Genitourinary ED: Denies dysuria or hematuria Musculoskeletal Musculoskeletal: Reports other Details: Left calf pain ; Denies arthralgias or back pain Integumentary Denies abscess Neurologic Neurologic: Denies headache(s) EXAM Physical Exam Const Vital Signs: 05/30/22 16:05 Temperature 98.7 F Temperature Source Temporal Pulse Rate 72 Respiratory Rate 14 Blood Pressure 148/65 H Blood Pressure Mean 92 Pulse Ox 97 Oxygen Delivery Method Room Air Positive well nourished General Appearance ED: NAD HEENT Reports moist mucous membranes normocephalic and atraumatic Eyes PERRL Resp normal respiratory effort and no retractions Cardio regular rate and regular rhythm Extremity Extremity Narrative: Left knee has a Silverlon dressing midline. Clean dry and intact. No erythema,induration, crepitance. She is tender in the left calf fairly diffusely. No cords palpated. There are some lower extremity edema which is pitting. Neuro oriented x3 Sensorium / Orientation: alert Psych mental status grossly normal Skin no wounds MDM MDM MDM Narrative Medical decision making narrative: Patient presenting with left calf pain status post total knee replacement on Wednesday. She was sent for ultrasound however we do not have one available today. Her exam does show some lower extremity edema which is consistent with apostoperative total knee replacement. No feeling cords. She does not have any chest pain or shortness of breath. We discussed an outpatient ultrasound which can be scheduled for tomorrow and she is amenable to this. We will hold blood thinners for now. She was counseled at length that if she has any chest pain orshortness of breath she should return immediately. Impression: 1. Postop wound check 2. Left calf pain Discharge Plan Triage Chief Complaint: Lower Extremity Injury ED Provider: Darren Calle Dx/Rx/DC Orders Instructions: ED Post Op Wound Check, Pain Prescriptions: No Action Trulicity 1.5 mg/0.5 mL pen injector 1.5 mg subcut ESQUIVEL 90 Days Qty: 6.5 3RF levothyroxine 200 mcg tablet 200 mcg PO DAILY Qty: 90 3RF Rx Instructions: take with 25mcg to equal 225mcg daily losartan-hydrochlorothiazide 100-12.5 mg tablet 1 tab PO DAILY Qty: 90 3RF lovastatin 20 mg tablet 20 mg PO QHS Qty: 90 3RF Triple Magnesium Complex 400 mg magnesium capsule 400 mg PO DAILY Qty: 90 3RF metformin 500 mg tablet extended release 24 hr 500 mg PO BID Qty: 180 3RF multivitamin Tablet 1 tab PO DAILY Qty: 90 3RF omeprazole 20 mg capsule,delayed release(DR/EC) 20 mg PO DAILY Qty: 90 3RF potassium citrate 99 mg capsule 99 mg PO DAILY Qty: 90 3RF (DME) FreeStyle Ty 14 Day Sensor Kit See Rx Instructions .ROUTE .MEDSUPPLY Qty: 2 3RF Rx Instructions: As directed insulin aspart U-100 [Novolog FlexPen U-100 Insulin] 100 unit/mL (3 mL) insulin pen 25 unit subcut TID 90 Days Qty: 67.5 5RF Lantus Solostar U-100 Insulin 100 unit/mL (3 mL) insulin pen 60 unit subcut BID 90 Days Qty: 108 5RF Other Ambulatory Orders: Venous Duplex US, Unilateral (Stat) Facility: [facility] - Location: [facility] Ordered By: Dr. Darren Calle Primary Care Provider: Allison Gomez Referrals: Allison Gomez MD [Primary Care Provider] - Disposition Disposition: Home, Self Care What to do if you have Problems For any increased pain, shortness of breath, bleeding, nausea or vomiting, chestpain, or any unexpected problems, contact your Primary Care Provider. Call [facility] ([phone]) or report to the closest Emergency Room. Call 911 if necessary. 05/30/22 1642 <Electronically signed by Darren Calle DO> Cosigner Signature (if applicable): CC: Dr. Allison Gomez MD ~ Signed [facility] Work Phone: [phone]) 926-749110-29-2021 NotePatient Outreach (NETNAV) NIMO MCCLOUD ([id number]) 1950 F Date Time Provider Department 01/10/21 DB PIMENTEL During your visit today, we recorded the following information about you: Db Mccauleyi Population Health Navigator 01/10/2021 8:56 AM Signed POPULATION HEALTH NAVIGATION OUTREACH Action/FYI I left a voice message and a my chart message re: pcp No care everywhere Contact made with patient or family member? NO Pt identified by name and : NO Outreach Outcome/Action Unable to reach patient: Left message Spiceworkshart message sent Reason for Outreach Attribution: Provider [...] future healthcare decisions with a power of real estate associate attorney, living will, or advance directives? No. Please bring a copy to your next appointment or email to [email or web address] Referrals: N/A Message Sent to Practice: NO Navigation Signature: Db L Margarito Population Health Navigator January 10, 2021 8:56 [...] [E*10/24/2012 Acquired hypothyroidism [E03.9] (more content not included)...[facility]10-29-2021 NoteHNO ID: [id number] Author: Db Pimentel Population Health Navigator Service: ? Author Type: ? Type: Progress Notes Filed: 01/10/2021 8:56 AM Note Text: POPULATION HEALTH NAVIGATION OUTREACH Action/FYI I left a voice message and a my chart message re: pcp No care everywhere Contact made with patient or family member? NO Pt identified by name and : NO Outreach Outcome/Action Unable to reach patient: Left message MyChart message sent Reason for Outreach Attribution: Provider [...] future healthcare decisions with a power of real estate associate attorney, living will, or advance directives? No. Please bring a copy to your next appointment or email to Referrals: N/A Message Sent to Practice: NO Navigation Signature: Db Pimentel Population Health Navigator January 10, 2021 8:56 [facility]09-23-2021 NotePatient Outreach (AMBCMG) NIMO MCCLOUD ([id number]) 1950 F Date Time Provider Department 12/05/20 JAYDA SHEN During your visit today, we recorded the following information about you: Jayda Shen MA 12/05/2020 12:26 PM Signed POPULATION HEALTH NAVIGATION OUTREACH Action/FYI [facility] Health Maintenance items due: NEEDS NEW PCP [...] future healthcare decisions with a power of real estate associate attorney, living will, or advance directives? Referrals: N/A Message Sent to Practice: NO Navigation Signature: Jayda Shen MA December 05, 2020 9:00 AM Allergies [...] Headache Date Reviewed: 04/22/2020 Reviewed by: Meghan Paniagua) Wm - Fully Assessed Reason for Visit: [...] of lumbar spine [M47.816]10/13 (more content not included)...[facility]09-23-2021 NoteHNO ID: [id number] Author: Jayda Shen MA Service: ? Author Type: Aquaculture Farmer Type: Progress Notes Filed: 12/05/2020 12:26 PM [...] future healthcare decisions with a power of real estate associate attorney, living will, or advance directives? Referrals: N/A Message Sent to Practice: NO Navigation Signature: Jayda Shen MA December 05, 2020 9:00 [facility]06-07-2021 NotePatient Outreach (NETNAV) NIMO MCCLOUD ([id number]) 1950 F Date Time Provider Department 08/19/20 ANGIE BOONE During your visit today, we recorded the following information about you: Angie Boone Population Health Navigator 08/19/2020 11:09 AM Signed POPULATION HEALTH NAVIGATION OUTREACH Action/FYI Swati message sent, needs to est with new PCP VM left for a return call Contact made with patient or family member? NO Pt identified by name and : NO Outreach Outcome/Action Unable to reach patient: Left message Spiceworkshart message sent Advance Directives sent Reason for [...] 01/06/2017 Obstructive sleep apnea [G47.33] 10/04/2017 Other meterman (current) drug therapy [Z79.899]01/25/2017 Other specified soft tissue disorders [M79.89] 01/06/2017 Lymphedema, not elsewhere classified [I89.0] 01/06/2017 intermodal 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 of oral hypoglycemic dr*10/04/2017 intermodal 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 of insulin (HCC) [Z79.4]01/06/2017 Hemorrhage of anus and rectum [K62.5] 02/22/2017 Family history of malignant neoplasm of digesti*02/22/2017 Diplopia [H53.2] 10/04/2017 Microcytic anemia [D50.9] 03/23/2018 Major depressive disorder, single episode, mode*05/20/2020 Encounter Status:Closed by PAOLO ANDREA (more content not included)... [facility]06-07-2021 NoteHNO ID: [id number] Author: Angie Boone Population Health Navigator Service: [...] Population Health Navigator August 19, 2020 10:57 [facility] Diagnosis Onset Date Resolution Status Flank pain, acute acute Recurrent UTI acute Right flank pain acute Benign essential HTN chronic DM2 (diabetes mellitus, type 2) chronic Dyslipidemia chronic Hyperlipidemia chronic Morbid obesity chronic Thyroid disease [facility] Work Phone: Evaluation note* Diagnosis Onset Date Resolution Status Flank pain, acute acute Recurrent UTI acute Right flank pain acute Benign essential HTN chronic DM2 (diabetes mellitus, type 2) chronic Dyslipidemia chronic Hyperlipidemia chronic Morbid obesity chronic Family history of colon cancer in father acute History of colon polyps acut e BMI 45.0-49.9, adult chronic ANISHA (obstructive sleep apnea) chronic [facility] Work Phone: Evaluation note* Diagnosis Onset Date Resolution Status BMI 45.0-49.9, adult chronic ANISHA (obstructive sleep apnea) chronic Hypothyroidism acute Benign essential HTN chronic BMI 45.0-49.9, adult chronic Diabetes chronic DM2 (diabetes mellitus, type 2) chronic Dyslipidemia chronic HTN (hypertension) chronic Hyperlipidemia chronic Morbid obesity chronic Acute bronchitis acute [facility] Work Phone: Evaluation note* Diagnosis Onset Date Resolution Status BMI 45.0-49.9, adult chronic ANISHA (obstructive sleep apnea) chronic Hypothyroidism acute Benign essential HTN chronic BMI 45.0-49.9, adult chronic Diabetes chronic DM2 (diabetes mellitus, type 2) chronic Dyslipidemia chronic HTN (hypertension) chronic Hyperlipidemia chronic Morbid obesity chronic Acute bronchitis acute BiPAP (biphasic positive airway pressure) dependence acute Preop exam for internal medicine acute Benign essential HTN chronic BMI 45.0-49.9, adult chronic DM2 (diabetes mellitus, type 2) chronic Dyslipidemia chronic HTN (hypertension) chronic Morbid obesity chronic ANISHA (obstructive sleep apnea) [facility] Work Phone: Evaluation note* Diagnosis Onset Date Resolution Status Hypothyroidism acute Benign essential HTN chronic BMI 45.0-49.9, adult chronic Diabetes chronic DM2 (diabetes mellitus, type 2) chronic Dyslipidemia chronic HTN (hypertension) chronic Hyperlipidemia chronic Morbid obesity chronic Acute bronchitis acute BiPAP (biphasic positive airway pressure) dependence acute Preop exam for internal medicine acute Benign essential HTN chronic BMI 45.0-49.9, adult chronic DM2 (diabetes mellitus, type 2) chronic Dyslipidemia chronic HTN (hypertension) chronic Morbid obesity chronic ANISHA (obstructive sleep apnea) [facility] Work Phone: Evaluation note* Diagnosis Onset Date Resolution Status BiPAP (biphasic positive airway pressure) dependence acute Preop exam for internal medicine acute Benign essential HTN chronic BMI 45.0-49.9, adult chronic DM2 (diabetes mellitus, type 2) chronic Dyslipidemia chronic HTN (hypertension) chronic Morbid obesity chronic ANISHA (obstructive sleep apnea) chronic Hypothyroidism acute Obesity acute Urinary urgency acute Benign essential HTN chronic Diabetes chronic [facility] Work Phone: Evaluation note* Diagnosis Onset Date Resolution Status Hypothyroidism acute Obesity acute Urinary urgency acute Benign essential HTN chronic Diabetes chronic UTI (urinary tract infection) acute [facility] Work Phone: Evaluation note* Diagnosis Onset Date Resolution Status UTI (urinary tract infection) acute [facility] Work Phone: Evaluation note* Diagnosis Onset Date Resolution Status UTI (urinary tract infection) acute Benign essential HTN chronic Diabetes chronic Dyslipidemia chronic Hypothyroidism chronic Morbid obesity chronic Right flank pain acute HTN (hypertension) chronic [facility] Work Phone: Evaluation note* Diagnosis Onset Date Resolution Status UTI (urinary tract infection) acute Benign essential HTN chronic Diabetes chronic Dyslipidemia chronic Hypothyroidism chronic Morbid obesity chronic Right flank pain acute HTN (hypertension) chronic Flank pain, acute acute Muscle pain acute Diabetes chronic HTN (hypertension) chronic Obesity chronic DM2 (diabetes mellitus, type 2) chronic Obesity chronic [facility] Work Phone: Evaluation note* Diagnosis Onset Date Resolution Status Benign essential HTN chronic Diabetes chronic Dyslipidemia chronic Hypothyroidism chronic Morbid obesity chronic Right flank pain acute HTN (hypertension) chronic Flank pain, acute acute Muscle pain acute Diabetes chronic HTN (hypertension) chronic Obesity chronic DM2 (diabetes mellitus, type 2) chronic Obesity chronic ANISHA (obstructive sleep apnea) chronic Urinary tract infection acut e [facility] Work Phone: Evaluation note* Diagnosis Onset Date Resolution Status Urinary tract infection acut e Benign essential HTN chronic Chronic kidney disease chron ic DM2 (diabetes mellitus, type 2) chronic Hyperlipidemia chronic Hypothyroidism chronic Obesity chronic Urinary urgency chronic Vitamin D insufficiency 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 Please follow-up with the foot doctor. [facility] Work Phone: Hospital Discharge instructionsAdditional Instructions Plenty of fluids and rest. Cranberry juice. Tylenol for pain. Follow-up with your doctor. Stop the current antibiotic Macrobid. Start the Bactrim 1 pill twice a day till gone. Your labs and CAT scan look good tonight.[facility] Work Phone: Hospital Discharge instructionsAdditional Instructions Muscle relaxers can increase falls, confusion, weakness. Do not drive or operate heavy machinery while taking these. Follow-up with your primary care physician. Drink plenty of fluids over the next several days. Repeat your BMP. Return back to the ED symptoms change or worsen.[facility] Work Phone: Reason for referral (narrative)No reason for referral information availableWooSt. Vincent Hospital Work Phone: Summary Purpose Family History No Family History Records Found Relationship Condition Age at Onset Recorded Date/T zonia father Malignant neoplasm of colon Unknown Myocardial infarction Unknown Diabetes mellitus Unknown Hypertension Unknown Hyperlipidemia Unknown mother Malignant neoplasm of colon Unknown Malignant neoplasm Unknown Cardiac disease Unknown Cerebrovascular accident (CVA) Unknown Disorder of thyroid Unknown brother Malignant neoplasm of colon Unknown Not Specified Malignant neoplasm of breast Unknown uncle Malignant neoplasm of colon Unknown Relationship Condition Age at Onset Recorded Date/T zonia father Malignant neoplasm of colon Unknown Myocardial infarction Unknown Diabetes mellitus Unknown Hypertension Unknown Hyperlipidemia Unknown mother Malignant neoplasm of colon Unknown Malignant neoplasm Unknown Cardiac disease Unknown Cerebrovascular accident (CVA) Unknown Disorder of thyroid Unknown brother Malignant neoplasm of colon Unknown unrelated friend Malignant neoplasm of breast Unknown uncle Malignant neoplasm of colon Unknown Advance Directives No Advanced Directives Records Found Advance Directive Response Recorded Date/ Time Name of Medical Power of Crisis Nurse kingsley costa October 15, 2021 8:41pm Advance Directives No August 13 0 7:34am Living Will Yes October 15, 2021 8:41pm Power of Crisis Nurse Yes October 15 8:41pm Advance Directive Response Recorded Date/ Time Name of Medical Power of Crisis Nurse kingsley costa October 15, 2021 7:41pm Name of Medical Power of Crisis Nurse Hellen la December 01, 2021 12:04pm Advance Directives No August 13 0 6:34am Living Will Yes December 01, 2021 12:04pm Power of Crisis Nurse Yes November 12:04pm Advance Directive Response Recorded Date/ Time Advance Directives No August 13 0 6:34am Living Will Yes December 01, 2021 12:04pm Power of Crisis Nurse Yes November 12:04pm Advance Directive Response Recorded Date/ Time Name of Medical Power of Crisis Nurse KINGSLEY CHRISTIANO May 30, 2022 4:07pm Advance Directives No August 13 0 7:34am Living Will Yes May 30, 2022 4:07pm Power of Crisis Nurse Yes May 30 4:07pm Advance Directive Response Recorded Date/ Time Name of Medical Power of Crisis Nurse KINGSLEY CHRISTIANO May 30, 2022 4:07pm Name of Medical Power of Crisis Nurse kingsley christiano June 03, 2022 5:03am Advance Directives No August 13 0 7:34am Living Will Yes June 03, 2022 5:03am Power of Crisis Nurse Yes June 03 5:03am Advance Directive Response Recorded Date/ Time Name of Medical Power of Crisis Nurse KINGSLEY ALVARADO May 30, 2022 4:07pm Name of Medical Power of Crisis Nurse kingsley christiano June 03, 2022 5:03am Advance Directives No August 13 0 7:34am Living Will No August 09, 2022 6 :36pm Power of Crisis Nurse No August 09, 2022 6:36pm Advance Directive Response Recorded Date/ Time Advance Directives No August 13 0 7:34am Living Will No August 09, 2022 6 :36pm Power of Crisis Nurse No August 09, 2022 6:36pm Advance Directive Response Recorded Date/ Time Name of Medical Power of Crisis Nurse KINGSLEY CHRISTIANO December 10, 2022 2:39pm Advance Directives No August 13 0 7:34am Living Will No December 10, 2022 2:39pm Power of Crisis Nurse Yes November 2:39pm Advance Directive Response Recorded Date/ Time Name of Medical Power of Crisis Nurse KINGSLEY CHRISTIANO December 10, 2022 2:39pm Advance Directives No August 13 0 7:34am Living Will No December 29 9:34am Power of Crisis Nurse No December 29, 2022 9:34am Advance Directive Response Recorded Date/ Time Name of Medical Power of Crisis Nurse KINGSLEY ALVARADO December 10, 2022 1:39pm Advance Directives No August 13 0 6:34am Living Will No February 04 023 5:14pm Power of Crisis Nurse No February 04, 2023 5:14pm Advance Directive Response Recorded Date/ Time Advance Directives No August 13 0 7:34am Living Will No February 04 023 6:14pm Power of Crisis Nurse No February 04, 2023 6:14pm Advance Directive Response Recorded Date/ Time Advance Directives No August 13 0 7:34am Living Will No June 07, 2023 12:40pm Power of Crisis Nurse No June 06 12:40pm Advance Directive Response Recorded Date/ Time Living Will No June 07, 2023 12:40pm Do you have a Healthcare Power of Crisis Nurse? No June 07, 2023 12:40pm Living Will No April 17 4:30pm Do you have a Healthcare Power of Crisis Nurse? No April 17, 2024 4:30pm Living Will No May 07 025 4:16pm Do you have a Healthcare Power of Crisis Nurse? No May 07, 2024 4:16pm Advance Directives No August 13 0 7:34am Advance Directive Response Recorded Date/ Time Living Will No April 17 4:30pm Do you have a Healthcare Power of Crisis Nurse? No April 17, 2024 4:30pm Living Will No May 07 025 4:16pm Do you have a Healthcare Power of Crisis Nurse? No May 07, 2024 4:16pm Advance Directives No August 13 0 7:34am Advance Directive Response Recorded Date/ Time Living Will No May 07 025 4:16pm Do you have a Healthcare Power of Crisis Nurse? No May 07, 2024 4:16pm Advance Directives No August 13 0 7:34am Advance Directive Response Recorded Date/ Time Advance Directives No August 13 0 7:34am Advance Directive Response Recorded Date/ Time Do you have a Healthcare Power of Crisis Nurse? Yes September 26, 2024 8:06pm Advance Directives No August 13 0 7:34am Advance Directive Response Recorded Date/ Time Do you have a Healthcare Power of Crisis Nurse? Yes September 26, 2024 8:06pm Do you have a Healthcare Power of Crisis Nurse? Yes September 28, 2024 8:10pm Advance Directives No August 13 7:34am Chief Complaint and Reason for Visit Chief Complaint KIDNEY ISSUES INT LABS Amb Documentation HTN, [place], HYPERGLYCEMIA Reason for Visit Flank pain, acute Recurrent UTI Right flank pain Benign essential HTN DM2 (diabetes mellitus, type 2) Dyslipidemia Hyperlipidemia Morbid obesity Thyroid disease Chief Complaint KIDNEY ISSUES INT LABS Amb Documentation HTN, [place], HYPERGLYCEMIA Amb Documentation FLANK PAIN Amb Documentation Reason for Visit Flank pain, acute Recurrent UTI Right flank pain Benign essential HTN DM2 (diabetes mellitus, type 2) Dyslipidemia Hyperlipidemia Morbid obesity Thyroid disease Chief Complaint KIDNEY ISSUES INT LABS Amb Documentation HTN, [place], HYPERGLYCEMIA Amb Documentation FLANK PAIN Amb Documentation 1 Y FU E ORDER Reason for Visit Flank pain, acute Recurrent UTI Right flank pain Benign essential HTN DM2 (diabetes mellitus, type 2) Dyslipidemia Hyperlipidemia Morbid obesity Family history of colon cancer in father History of colon polyps BMI 45.0-49.9, adult ANISHA (obstructive sleep apnea) Chief Complaint 1 Y FU E ORDER 3 M FU Amb Documentation SORE THROAT, COUGH, CONGESTED PREOP FOR LEFT KNEE REPLACEMENT/ ADD EORDER LABS PREOP FOR LEFT KNEE REPLACEMENT/ ADD EORDER LABS Reason for Visit BMI 45.0-49.9, adult ANISHA (obstructive sleep apnea) Hypothyroidism Benign essential HTN BMI 45.0-49.9, adult Diabetes DM2 (diabetes mellitus, type 2) Dyslipidemia HTN (hypertension) Hyperlipidemia Morbid obesity Acute bronchitis Chief Complaint 1 Y FU E ORDER 3 M FU Amb Documentation SORE THROAT, COUGH, CONGESTED PREOP FOR LEFT KNEE REPLACEMENT/ ADD EORDER LABS PREOP FOR LEFT KNEE REPLACEMENT/ ADD EORDER LABS Surgery Clearance E ORDERS/PRE OP PRO OP PREOP Reason for Visit BMI 45.0-49.9, adult ANISHA (obstructive sleep apnea) Hypothyroidism Benign essential HTN BMI 45.0-49.9, adult Diabetes DM2 (diabetes mellitus, type 2) Dyslipidemia HTN (hypertension) Hyperlipidemia Morbid obesity Acute bronchitis BiPAP (biphasic positive airway pressure) dependence Preop exam for internal medicine Benign essential HTN BMI 45.0-49.9, adult DM2 (diabetes mellitus, type 2) Dyslipidemia HTN (hypertension) Morbid obesity ANISHA (obstructive sleep apnea) Chief Complaint 1 Y FU E ORDER 3 M FU Amb Documentation SORE THROAT, COUGH, CONGESTED PREOP FOR LEFT KNEE REPLACEMENT/ ADD EORDER LABS PREOP FOR LEFT KNEE REPLACEMENT/ ADD EORDER LABS Surgery Clearance E ORDERS/PRE OP PRO OP PREOP LEG PAIN Reason for Visit BMI 45.0-49.9, adult ANISHA (obstructive sleep apnea) Hypothyroidism Benign essential HTN BMI 45.0-49.9, adult Diabetes DM2 (diabetes mellitus, type 2) Dyslipidemia HTN (hypertension) Hyperlipidemia Morbid obesity Acute bronchitis BiPAP (biphasic positive airway pressure) dependence Preop exam for internal medicine Benign essential HTN BMI 45.0-49.9, adult DM2 (diabetes mellitus, type 2) Dyslipidemia HTN (hypertension) Morbid obesity ANISHA (obstructive sleep apnea) Chief Complaint 3 M FU Amb Documentation SORE THROAT, COUGH, CONGESTED PREOP FOR LEFT KNEE REPLACEMENT/ ADD EORDER LABS PREOP FOR LEFT KNEE REPLACEMENT/ ADD EORDER LABS Surgery Clearance E ORDERS/PRE OP PRO OP PREOP LEG PAIN US POST OP LEFT KNEE PAIN Reason for Visit Hypothyroidism Benign essential HTN BMI 45.0-49.9, adult Diabetes DM2 (diabetes mellitus, type 2) Dyslipidemia HTN (hypertension) Hyperlipidemia Morbid obesity Acute bronchitis BiPAP (biphasic positive airway pressure) dependence Preop exam for internal medicine Benign essential HTN BMI 45.0-49.9, adult DM2 (diabetes mellitus, type 2) Dyslipidemia HTN (hypertension) Morbid obesity ANISHA (obstructive sleep apnea) Chief Complaint PREOP FOR LEFT KNEE REPLACEMENT/ ADD EORDER LABS PREOP FOR LEFT KNEE REPLACEMENT/ ADD EORDER LABS Surgery Clearance E ORDERS/PRE OP PRO OP PREOP LEG PAIN US POST OP LEFT KNEE PAIN Diabetes EORDER-URINE ONLY LEFT TKA/RX HERE Reason for Visit BiPAP (biphasic posi tive airway pressure) dependence Preop exam for internal medicine Benign essential HTN BMI 45.0-49.9, adult DM2 (diabetes mellitus, type 2) Dyslipidemia HTN (hypertension) Morbid obesity ANISHA (obstructive sleep apnea) Hypothyroidism Obesity Urinary urgency Benign essential HTN Diabetes Chief Complaint Surgery Clearance E ORDERS/PRE OP PRO OP PREOP LEG PAIN US POST OP LEFT KNEE PAIN Diabetes EORDER-URINE ONLY LEFT TKA/RX HERE BITE Reason for Visit BiPAP (biphasic posi tive airway pressure) dependence Preop exam for internal medicine Benign essential HTN BMI 45.0-49.9, adult DM2 (diabetes mellitus, type 2) Dyslipidemia HTN (hypertension) Morbid obesity ANISHA (obstructive sleep apnea) Hypothyroidism Obesity Urinary urgency Benign essential HTN Diabetes Chief Complaint PRO OP PREOP LEG PAIN US POST OP LEFT KNEE PAIN Diabetes EORDER-URINE ONLY BITE FREQUENCY OF MICTURITION CONCERN FOR UTI LEFT TKA/RX HERE Reason for Visit Hypothyroidism Obesity Urinary urgency Benign essential HTN Diabetes UTI (urinary tract infection) Chief Complaint BITE FREQUENCY OF MICTURITION CONCERN FOR UTI LEFT TKA/RX HERE Reason for Visit UTI (urinary tract i nfection) Chief Complaint FREQUENCY OF MICTURI TION CONCERN FOR UTI LEFT TKA/RX HERE 5 M FU, RS 07/10 POSSIBLE UTI flank pain Reason for Visit UTI (urinary tract i nfection) Benign essential HTN Diabetes Dyslipidemia Hypothyroidism Morbid obesity Right flank pain HTN (hypertension) Chief Complaint FREQUENCY OF MICTURI TION CONCERN FOR UTI LEFT TKA/RX HERE 5 M FU, RS 07/10 POSSIBLE UTI flank pain E-ORDER FU for Pain 1 M FU SOB, CHEST PAIN Reason for Visit UTI (urinary tract i nfection) Benign essential HTN Diabetes Dyslipidemia Hypothyroidism Morbid obesity Right flank pain HTN (hypertension) Flank pain, acute Muscle pain Diabetes HTN (hypertension) Obesity DM2 (diabetes mellitus, type 2) Obesity Chief Complaint 5 M FU, RS 07/10 POSSIBLE UTI flank pain E-ORDER FU for Pain 1 M FU SOB, CHEST PAIN 1 Y FU burn Urinary tract infection Reason for Visit Benign essential HTN Diabetes Dyslipidemia Hypothyroidism Morbid obesity Right flank pain HTN (hypertension) Flank pain, acute Muscle pain Diabetes HTN (hypertension) Obesity DM2 (diabetes mellitus, type 2) Obesity ANISHA (obstructive sleep apnea) Urinary tract infection Chief Complaint burn Urinary tract infection 3 M FU, NS 02/ E-ORDER FROM 2 DIFFERENT 'Rosanna EORDER- URINE POSSIBLE UTI - PATRICIA PT Reason for Visit Urinary tract infect ion Benign essential HTN Chronic kidney disease DM2 (diabetes mellitus, type 2) Hyperlipidemia Hypothyroidism Obesity Urinary urgency Vitamin D insufficiency Acute recurrent cystitis Chief Complaint Urinary tract infect ion 3 M FU, NS 02 E-ORDER FROM 2 DIFFERENT 'S EORDER- URINE POSSIBLE UTI - PATRICIA PT UTI Reason for Visit Urinary tract infect ion Benign essential HTN Chronic kidney disease DM2 (diabetes mellitus, type 2) Hyperlipidemia Hypothyroidism Obesity Urinary urgency Vitamin D insufficiency Acute recurrent cystitis Chief Complaint Admit Date 3 M FU March 23, 2024 10 :40am R ANKLE INJURY April 17, 2024 3 :29pm flu like symptoms May 07, 2024 2:59pm 3 M FU June 22, 2024 10: 04am Reason for Visit Admit Date Chronic kidney disease March 23, 2024 10:40am DM2 (diabetes mellitus, type 2) March 23, 2024 10:40am HTN (hypertension) March 23, 2024 10 :40am Hyperlipidemia March 23, 2024 10 :40am Hypothyroidism March 23, 2024 10 :40am Morbid obesity March 23, 2024 10 :40am Thyroid nodule March 23, 2024 10 :40am Vitamin D deficiency March 23, 2024 1 0:40am BMI 45.0-49.9, adult June 22, 2024 10 :04am Chronic kidney disease June 22, 2024 10:04am Diabetes June 22, 2024 10: 04am Dyslipidemia June 22, 2024 10: 04am HTN (hypertension) June 22, 2024 10: 04am Hypothyroidism June 22, 2024 10: 04am Thyroid nodule June 22, 2024 10: 04am Chief Complaint Admit Date R ANKLE INJURY April 17, 2024 3 :29pm flu like symptoms May 07, 2024 2:59pm 3 M FU June 22, 2024 10: 04am [facility] July 19, 2024 6:52am BILAT LOWER EXT [facility] July 19, 2024 2:56pm Reason for Visit Admit Date BMI 45.0-49.9, adult June 22, 2024 10 :04am Chronic kidney disease June 22, 2024 10:04am Diabetes June 22, 2024 10: 04am Dyslipidemia June 22, 2024 10: 04am HTN (hypertension) June 22, 2024 10: 04am Hypothyroidism June 22, 2024 10: 04am Thyroid nodule June 22, 2024 10: 04am Chief Complaint Admit Date flu like symptoms May 07, 2024 2:59pm 3 M FU June 22, 2024 10: 04am [facility]T [facility] July 19, 2024 6:52am BILAT LOWER EXT [facility] July 19, 2024 2:56pm Chief Complaint Admit Date 3 M FU June 22, 2024 10: 04am [facility] July 19, 2024 6:52am BILAT LOWER EXT [facility] July 19, 2024 2:56pm Breast cancer screening September 18, 2024 2 :47pm EORDERS September 21, 2024 1:16 pm Chief Complaint Admit Date 3 M FU June 22, 2024 10: 04am BILAT L[facility] EXT [facility] July 19, 2024 6:52am [facility] EXT [facility] July 19, 2024 2:56pm Breast cancer screening September 18, 2024 2 :47pm EORDERS September 21, 2024 1:16 pm uti September 26, 2024 7:33 pm Chief Complaint Admit Date 3 M FU June 22, 2024 10: 04am [facility] EXT [place] July 19, 2024 6:52am [facility] EXT [place] July 19, 2024 2:56pm Breast cancer screening September 18, 2024 2 :47pm EORDERS September 21, 2024 1:16 pm uti September 26, 2024 7:33 pm uti September 28, 2024 7:06 pm Chief Complaint Admit Date BILAT LOWER EXT [place] July 19, 2024 6:52am [facility] EXT [place] July 19, 2024 2:56pm Breast cancer screening September 18, 2024 2 :47pm EORDERS September 21, 2024 1:16 pm uti September 26, 2024 7:33 pm uti September 28, 2024 7:06 pm UTI's Seen in ER October 30, 2024 11 :50am Reason for Visit Admit Date Recurrent UTI October 30, 2024 11 :50am Chief Complaint Admit Date BILAT LOWER EXT [place] July 19, 2024 6:52am BILAT LOWER EXT [place] July 19, 2024 2:56pm Breast cancer screening September 18, 2024 2 :47pm EORD[place] September 21, 2024 1:16 pm uti September 26, 2024 7:33 pm uti September 28, 2024 7:06 pm UTI's Seen in ER October 30, 2024 11 :50am EORDER October 30, 2024 12 :32pm Reason for Visit Admit Date Mixed incontinence October 30, 2024 11 :50am Recurrent UTI October 30, 2024 11 :50am Renal insufficiency October 30, 2024 11 :50am Vaginal atrophy October 30, 2024 11 :50am DM2 (diabetes mellitus, type 2) October 132024 11:50am Additional Source Comments INFORMATION SOURCE (unrecogn ized section and content) DATE CREATED AUTHOR 06/10/2021 [facility] DATE CREATED AUTHOR AUTHOR'S ORGANIZ ATION 12/04/[address] [facility] Goals (unrecognized section and content) Goals may be documented in a n alternate sectionGoals may be documented in an alternate sectionGoals may be documented in an alternate sectionGoals may be documented in an alternate sectionGoals may be documented in an alternate sectionGoals may be documented in an alternate sectionGoals may be documented in an alternate sectionGoals may be documented in an alternate sectionGoals may be documented in an alternate sectionGoals may be documented in an alternate sectionGoals may be documented in an alternate sectionGoals may be documented in an alternate sectionGoals may be documented in an alternate sectionGoals may be documented in an alternate sectionGoals may be documented in an alternate sectionGoals may be documented in an alternate sectionGoals may be documented in an alternate sectionGoals may be documented in an alternate sectionGoals may be documented in an alternate sectionGoals may be documented in an alternate sectionGoals may be documented in an alternate sectionGoals may be documented in an alternate sectionGoals may be documented in an alternate sectionGoals may be documented in an alternate sectionGoals may be documented in an alternate sectionGoals may be documented in an alternate section Care Teams (unrecognized sec tion and content) Team Status: Active Member Role Status Dates Dr. Tomas Espino III, MD Family Provider Active Dr. Allison Gomez MD Primary Care Provider Active Team Status: Inactive Member Role Status Dates Dr. Allison Gomez MD Primary Care Provider, Referri ng Provider Active Kathryn Quintanilla POWER MANAGER, POWER MANAGER-C Attending Provider Active Team Status: Inactive Member Role Status Dates Dr. Allison Gomez MD Primary Care Provider, Attendi ng Provider Active Team Status: Active Member Role Status Dates Dr. Allison Gomez MD Primary Care Provider Active Delio Frausto Attending Provider Active Team Status: Inactive Member Role Status Dates Dr. Allison Gomez MD Primary Care Provider, Referri ng Provider Active Christopher JACKSON, PA Attending Provider Active Team Status: Active Member Role Status Dates Dr. Allison Gomez MD Primary Care Pro vider, Referring Provider, Other Provider Active Dr. Jaycob Cesar MD Attending Provider Active Team Status: Inactive Member Role Status Dates Dr. Allison Gomez MD Primary Care Pro vider, Attending Provider, Referring Provider Active Team Status: Active Member Role Status Dates Dr. Allison Gomez MD Primary Care Provider, Referri ng Provider Active Dr. Wilton Yanez MD Attending Provider Active Team Status: Active Member Role Status Dates Dr. Allison Gomez MD Primary Care Pro vider, Attending Provider, Referring Provider Active Team Status: Inactive Member Role Status Dates Dr. Allison Gomez MD Primary Care Provider Active Dr. Darren Calle DO Emergency Provider Active Team Status: Active Member Role Status Dates Dr. Allison Gomez MD Primary Care Provider Active Dr. Todd Espino MD Attending Provider Active Team Status: Active Member Role Status Dates Dr. Allison Gomez MD Primary Care Provider Active Dr. Darren Calle DO Attending Provider, Referring Provider Active Team Status: Inactive Member Role Status Dates Dr. Allison Gomez MD Primary Care Provider Active Dr. Juan Pablo Sauceda MD Emergency Provider Active Team Status: Inactive Member Role Status Dates Dr. Allison Gomez MD Primary Care Provider Active Dr. Darren Calle DO Attending Provider, Emergency Provider Active Team Status: Inactive Member Role Status Dates Dr. Allison Gomez MD Primary Care Provider Active Dr. Darren Calle DO Attending Provider, Referring Provider Active Team Status: Inactive Member Role Status Dates Dr. Allison Gomez MD Primary Care Provider, Referri ng Provider Active Dr. Branedn Jurado MD Attending Provider Active Team Status: Active Member Role Status Dates Dr. Allison Gomez MD Primary Care Provider Active Dr. Todd Espino MD Attending Provider Active Dr. Darren Calle DO Referring Provider Active Team Status: Inactive Member Role Status Dates Dr. Allison Gomez MD Primary Care Provider Active Dr. Juan Pablo Sauceda MD Attending Provider, Emergency Provider Active Team Status: Active Member Role Status Dates Dr. Allison Gmoez MD Primary Care Provider Active YAZ GORE Attending Provider, Referring Provider Active Team Status: Inactive Member Role Status Dates Dr. Allison Gomez MD Primary Care Provider Active Dr. Branden Jurado MD Attending Provider, Referring Provi anali Active Team Status: Inactive Member Role Status Dates Dr. Allison Gomez MD Primary Care Provider Active Dr. Mele Small DO Emergency Provider Active Team Status: Inactive Member Role Status Dates Dr. Allison Gomez MD Primary Care Provider, Referri ng Provider Active Atif JACKSON PA Attending Provider Active Team Status: Inactive Member Role Status Dates Dr. Allison Gomez MD Primary Care Provider Active Dr. Mele Small DO Attending Provider, Emergency P rovider Active Team Status: Inactive Member Role Status Dates Dr. Allison Gomez MD Primary Care Provider Active Atif JACKSON PA Attending Provider, Referring Prov ider Active Team Status: Inactive Member Role Status Dates Dr. Allison Gomez MD Primary Care Provider Active YAZ GORE Attending Provider, Referring Provider Active Team Status: Inactive Member Role Status Dates Dr. Allison Gomez MD Primary Care Provider Active Christopher JACKSON PA Attending Provider, Referring Provi anali Active Team Status: Inactive Member Role Status Dates Dr. Allison Gomez MD Primary Care Provider, Referri ng Provider Active Kandice Zambrano NP-C Attending Provider Active Team Status: Inactive Member Role Status Dates Dr. Allison Gomez MD Primary Care Provider, Referri ng Provider Active Dr. Brody Atwood DO Attending Provider Active Team Status: Inactive Member Role Status Dates Dr. Allison Gomez MD Primary Care Provider Active Dr. Bentley Cody DO Attending Provider, Emergency P rovider Active Team Status: Inactive Member Role Status Dates Dr. Allison Gomez MD Primary Care Provider Active Kandice Zambrano NP-C Attending Provider, Referring Pr ovider Active Team Status: Inactive Member Role Status Dates Dr. Allison Gomez MD Primary Care Provider, Other P rovider Active Kandice Zambrano NP-C Attending Provider, Referring Pr ovider Active Team Status: Inactive Member Role Status Dates Dr. Allison Gomez MD Primary Care Provider Active Dr. Jad Marinelli DO Emergency Provider Active Team Status: Active Member Role Status Dates Dr. Allison Gomez MD Primary Care Provider Active Team Status: Inactive Member Role Status Dates Dr. Allison Gomez MD Primary Care Provider Active Start: March 23, 2024 End: March 23, 2024 Dr. Allison Gomez MD Referring Provider Active Start: March 23, 2024 End: March 23, 2024 Kandice Zambrano NP-C Attending Provider Active Start: March 23, 2024 End: March 23, 2024 Team Status: Inactive Member Role Status Dates Dr. Allison Gomez MD Primary Care Provider Active Start: April 06, 2024 End: April 06, 2024 Kandice Zambrano NP-C Attending Provider Active Start: April 06, 2024 End: April 06, 2024 Kandice Zambrano NP-Maggie Referring Provider Active Start: April 06, 2024 End: April 06, 2024 Team Status: Inactive Member Role Status Dates Dr. Allison Gomez MD Primary Care Provider Active Start: April 17, 2024 End: April 17, 2024 Dr. Jeffery Vieyra DO Attending Provider Active Start : April 17, 2024 End: April 17, 2024 Dr. Jeffery Vieyra DO Emergency Provider Active Start : April 17, 2024 End: April 17, 2024 Team Status: Inactive Member Role Status Dates Dr. Allison Gomez MD Primary Care Provider Active Start: May 07, 2024 End: May 07, 2024 Dr. Bentley Cody DO Attending Provider Active Start: May 07, 2024 End: May 07, 2024 Dr. Bentley Cody DO Emergency Provider Active Start: May 07, 2024 End: May 07, 2024 Team Status: Inactive Member Role Status Dates Dr. Allison Gomez MD Primary Care Provider Active Start: June 22, 2024 End: June 22, 2024 Dr. Allison Gomez MD Referring Provider Active Start: June 22, 2024 End: June 22, 2024 RACHID DumontC Attending Provider Active Start: June 22, 2024 End: June 22, 2024 Team Status: Inactive Member Role Status Dates Dr. Allison Gomez MD Primary Care Provider Active Start: June 26, 2024 End: June 26, 2024 Dr. Carroll Mccormick MD Attending Provider Active Start: June 26, 2024 End: June 26, 2024 Dr. Carroll Mccormick MD Referring Provider Active Start: June 26, 2024 End: June 26, 2024 Team Status: Inactive Member Role Status Dates Dr. Allison Gomez MD Primary Care Provider Active Start: July 11, 2024 End: July 11, 2024 Dr. Carroll Mccormick MD Attending Provider Active Start: July 11, 2024 End: July 11, 2024 Dr. Carroll Mccormick MD Referring Provider Active Start: July 11, 2024 End: July 11, 2024 Team Status: Inactive Member Role Status Dates Dr. Allison Gomez MD Primary Care Provider Active Start: July 19, 2024 End: July 19, 2024 Dr. Jad Joe DPM Attending Provider Active Start: July 19, 2024 End: July 19, 2024 Dr. Jad Joe DPM Referring Provider Active Start: July 19, 2024 End: July 19, 2024 Team Status: Active Member Role Status Dates Dr. Allison Gomez MD Primary Care Provider Active Start: July 19, 2024 Dr. Jad Joe DPM Referring Provider Active Start: July 19, 2024 Dr. Jad Joe DPM Other Provider Active S tart: July 19, 2024 Dr. Mary Alice Pablo MD Attending Provider Active S tart: July 19, 2024 Team Status: Inactive Member Role Status Dates Dr. Allison Gomez MD Primary Care Provider Active Start: August 17, 2024 End: August 17, 2024 Dr. Carroll Mccormick MD Attending Provider Active Start: August 17, 2024 End: August 17, 2024 Dr. Carroll Mccormick MD Referring Provider Active Start: August 17, 2024 End: August 17, 2024 Team Status: Active Member Role/Relationship Status Dates Dr. Allison Gomez MD Primary Care Provider Active Team Status: Inactive Member Role/Relationship Status Dates Dr. Allison Gomez MD Primary Care Provider Active Start: June 22, 2024 End: June 22, 2024 Dr. Allison Gomez MD Referring Provider Active Start: June 22, 2024 End: June 22, 2024 JUSTIN Dumont Attending Provider Active Start: June 22, 2024 End: June 22, 2024 Team Status: Inactive Member Role/Relationship Status Dates Dr. Allison Gomez MD Primary Care Provider Active Start: June 26, 2024 End: June 26, 2024 Dr. Carroll Mccormick MD Attending Provider Active Start: June 26, 2024 End: June 26, 2024 Dr. Carroll Mccormick MD Referring Provider Active Start: June 26, 2024 End: June 26, 2024 Team Status: Inactive Member Role/Relationship Status Dates Dr. Allison Gomez MD Primary Care Provider Active Start: July 11, 2024 End: July 11, 2024 Dr. Carroll Mccormick MD Attending Provider Active Start: July 11, 2024 End: July 11, 2024 Dr. Carroll Mccormick MD Referring Provider Active Start: July 11, 2024 End: July 11, 2024 Team Status: Inactive Member Role/Relationship Status Dates Dr. Allison Gomez MD Primary Care Provider Active Start: July 19, 2024 End: July 19, 2024 Dr. Jad Joe DPM Attending Provider Active Start: July 19, 2024 End: July 19, 2024 Dr. Jad Joe DPM Referring Provider Active Start: July 19, 2024 End: July 19, 2024 Team Status: Active Member Role/Relationship Status Dates Dr. Allison Gomez MD Primary Care Provider Active Start: July 19, 2024 Dr. Jad Joe DPM Referring Provider Active Start: July 19, 2024 Dr. Jad Joe DPM Other Provider Active S tart: July 19, 2024 Dr. Mary Alice Pablo MD Attending Provider Active S tart: July 19, 2024 Team Status: Inactive Member Role/Relationship Status Dates Dr. Allison Gomez MD Primary Care Provider Active Start: August 17, 2024 End: August 17, 2024 Dr. Carroll Mccormick MD Attending Provider Active Start: August 17, 2024 End: August 17, 2024 Dr. Carroll Mccormick MD Referring Provider Active Start: August 17, 2024 End: August 17, 2024 Team Status: Inactive Member Role/Relationship Status Dates Dr. Allison Gomez MD Primary Care Provider Active Start: September 18, 2024 End: September 18, 2024 Dr. Allison Gomez MD Attending Provider Active Start: September 18, 2024 End: September 18, 2024 Dr. Allison Gomez MD Referring Provider Active Start: September 18, 2024 End: September 18, 2024 Team Status: Active Member Role/Relationship Status Dates Dr. Allison Gomez MD Primary Care Provider Active Start: September 21, 2024 Dr. Allison Gomez MD Attending Provider Active Start: September 21, 2024 Dr. Allison Gomez MD Referring Provider Active Start: September 21, 2024 Team Status: Inactive Member Role/Relationship Status Dates Dr. Allison oGmez MD Primary Care Provider Active Start: September 26, 2024 End: September 26, 2024 Dr. Micah Young MD Emergency Provider Active S tart: September 26, 2024 End: September 26, 2024 Team Status: Inactive Member Role/Relationship Status Dates Dr. Allison Gomez MD Primary Care Provider Active Start: September 21, 2024 End: September 21, 2024 Dr. Allison Gomez MD Attending Provider Active Start: September 21, 2024 End: September 21, 2024 Dr. Allison Gomez MD Referring Provider Active Start: September 21, 2024 End: September 21, 2024 Team Status: Inactive Member Role/Relationship Status Dates Dr. Allison Gomez MD Primary Care Provider Active Start: September 28, 2024 End: September 28, 2024 Dr. Branden Argueta DO Emergency Provider Activ e Start: September 28, 2024 End: September 28, 2024 Team Status: Inactive Member Role/Relationship Status Dates Dr. Allison Gomez MD Primary Care Provider Active Start: July 11, 2024 End: July 11, 2024 Dr. Carroll Mccormick MD Attending Provider Active Start: July 11, 2024 End: July 11, 2024 Dr. Carroll Mccormick MD Referring Provider Active Start: July 11, 2024 End: July 11, 2024 Team Status: Inactive Member Role/Relationship Status Dates Dr. Allison Gomez MD Primary Care Provider Active Start: July 19, 2024 End: July 19, 2024 Dr. Jad Joe DPM Attending Provider Active Start: July 19, 2024 End: July 19, 2024 Dr. Jad Joe DPM Referring Provider Active Start: July 19, 2024 End: July 19, 2024 Team Status: Active Member Role/Relationship Status Dates Dr. Allison Gomez MD Primary Care Provider Active Start: July 19, 2024 Dr. Jad Joe DPM Referring Provider Active Start: July 19, 2024 Dr. Jad Joe DPM Other Provider Active S tart: July 19, 2024 Dr. Mary Alice Pablo MD Attending Provider Active S tart: July 19, 2024 Team Status: Inactive Member Role/Relationship Status Dates Dr. Allison Gomez MD Primary Care Provider Active Start: August 17, 2024 End: August 17, 2024 Dr. Carroll Mccormick MD Attending Provider Active Start: August 17, 2024 End: August 17, 2024 Dr. Carroll Mccormick MD Referring Provider Active Start: August 17, 2024 End: August 17, 2024 Team Status: Inactive Member Role/Relationship Status Dates Dr. Allison Gomez MD Primary Care Provider Active Start: September 12, 2024 Dr. Pearl Egan MD Attending Provider Active Start: September 12, 2024 Team Status: Inactive Member Role/Relationship Status Dates Dr. Allison Gomez MD Primary Care Provider Active Start: September 18, 2024 End: September 18, 2024 Dr. Allison Gomez MD Attending Provider Active Start: September 18, 2024 End: September 18, 2024 Dr. Allison Gomez MD Referring Provider Active Start: September 18, 2024 End: September 18, 2024 Team Status: Inactive Member Role/Relationship Status Dates Dr. Allison Gomez MD Primary Care Provider Active Start: September 21, 2024 End: September 21, 2024 Dr. Allison Gomez MD Attending Provider Active Start: September 21, 2024 End: September 21, 2024 Dr. Allison Gomez MD Referring Provider Active Start: September 21, 2024 End: September 21, 2024 Team Status: Inactive Member Role/Relationship Status Dates Dr. Allison Gomez MD Primary Care Provider Active Start: September 26, 2024 End: September 26, 2024 Dr. Micah Young MD Attending Provider Active S tart: September 26, 2024 End: September 26, 2024 Dr. Micah Young MD Emergency Provider Active S tart: September 26, 2024 End: September 26, 2024 Team Status: Inactive Member Role/Relationship Status Dates Dr. Allison Gomez MD Primary Care Provider Active Start: September 28, 2024 End: September 28, 2024 Dr. Branden Argueta DO Attending Provider Activ e Start: September 28, 2024 End: September 28, 2024 Dr. Branden Argueta DO Emergency Provider Activ e Start: September 28, 2024 End: September 28, 2024 Team Status: Inactive Member Role/Relationship Status Dates Dr. Allison Gomez MD Primary Care Provider Active Start: October 30, 2024 End: October 30, 2024 Dr. Allison Gomez MD Referring Provider Active Start: October 30, 2024 End: October 30, 2024 Dr. Pearl Egan MD Attending Provider Active Start: October 30, 2024 End: October 30, 2024 Team Status: Inactive Member Role/Relationship Status Dates Dr. Allison Gomez MD Primary Care Provider Active Start: October 30, 2024 End: October 30, 2024 Dr. Pearl Egan MD Attending Provider Active Start: October 30, 2024 End: October 30, 2024 Dr. Pearl Egan MD Referring Provider Active Start: October 30, 2024 End: October 30, 2024 FOR RECORDS PERTAINING TO PATIENTS WHO ARE [...] BE BASED ON THE PRIMARY CLINICAL RECORDS. [employer] provides no warranty or guarantee of the accuracy or completeness of information in this document.
[2024-12-05] MEDS: Lactated Ringers 1,000 ML 15 ML IV (07:43)
--- NOTE | 2024-12-05 08:00 | PCM.PRE.AN2 ---
ASA Classification* ASA Classification ASA Classification: 3 Assessment & Plan Anesthesia* Anesthesia Assessment Anesthesia Assessment: Discussed sedation and/or anesthesia options, risks, benefits, and alternatives with patient/parents/legal guardian/POA. Questions invited. The patient/parents/legal guardian/POA seems to understand and agrees to proceed with anesthesia plan. Reviewed the physical assessment, medical history, allergy history and patient home medications list prior to surgery/procedure/anesthetic and documented any changes. Performed airway and anesthesia risk assessments. Anesthesia Type Anesthesia Type: MAC History Source History Obtained from:: Patient and Chart Anesthesia Focused Assessment* Temperature: 97.5 F Pulse Rate: 55 Blood Pressure: 131/58 Respiratory Rate: 16 Pulse Ox: 98 Oxygen Delivery Method: Room Air Airway Assessment Mouth opens: >3 cm Mallampati Score: II Teeth Condition: Dentures (Patient has full upper and lower dentures. They will stay in.) Neck Range of motion (ROM): Limited ROM (Slight Decrease) Labs Anesthesia Preop lab: CBC WBC, (4.4-11.0) 9.9 K/mm3 09/28/24, 20:05 RBC, (4.2-5.4) 4.87 M/mm3 09/28/24, 20:05 Hgb, (12.0-15.0) 12.9 g/dL 09/28/24, 20:05 Hct, (37-47) 39.5 % 09/28/24, 20:05 Plt Count, (150-450) 219 K/mm3 09/28/24, 20:05 CHEMISTRY Potassium, (3.3-5.1) 4.6 mmol/L 10/30/24, 12:37 Sodium, (133-145) 139 mmol/L 10/30/24, 12:37 BUN, (4-19) 32 mg/dL H 10/30/24, 12:37 Creatinine, (0.70-1.20) 1.13 mg/dL 10/30/24, 12:37 Glucose, (70-99) 187 mg/dL H 10/30/24, 12:37 POC Glucose, (74-106) 85 mg/dL 12/02/21, 08:21 TSH, (0.358-3.740) 0.030 uIU/mL L 04/06/24, 10:18 COAG PT, (11.7-14.9) 13.7 SECONDS 05/26/18, 05:00 Pre-Assessment Diagnosis/Proposed Procedure Planned Operative Procedure(s): COLOONOSCOPY Anesthesia History Anesthesia History - retirement plan specialist: Anesthesia History - retirement plan specialist Hx Hospitalization No 12/04/24 09:51 Any Problems With Anesthesia Yes: PONV; DIFFICULTY WAKING and 12/04/24 09:51 ; COLLAPSED LUNG -had to be reintubated. Cholinesterase deficiency No 12/04/24 09:51 You/Your Family Experience No 12/04/24 09:51 fever (hyperthermia) with Relationship Recent Exposure to Contagious No 12/05/24 07:32 Disease Does patient have nerve No 12/04/24 09:51 stimulator Patient instructed to have device shut off --Does patient have Pacemaker No 12/05/24 07:32 or ICD? When Was Last Pacemaker Check QUESTION #4 FULL TEXT: You/Your Family Experience fever (hyperthermia) with Anesthesia Last Oral Intake Last Oral intake: Last Oral Intake NPO since 22:00 12/05/24 07:32 Meds taken in AM with sips of No 12/05/24 07:32 water? Meds patient instructed to take am of surgery PONV PONV - retirement plan specialist: PONV - retirement plan specialist Female Yes 12/04/24 09:51 HX of Motion Sickness Yes 12/04/24 09:51 HX of N/V After Surgery Yes 12/04/24 09:51 Non-Smoker Yes 12/04/24 09:51 Duration of Surgery greater No 12/04/24 09:51 than 60 minutes Number of Risk Factors 4 12/04/24 09:51 PONV Score Severe Risk 12/04/24 09:51 Height & Weight Height & Weight: Anesthesia: Height & Weight Height 5 ft 3 in 12/05/24 07:32 Weight: 118 kg 12/05/24 07:32 Body Mass Index (BMI) 46.0 12/05/24 07:32 Respiratory Assessment Respiratory Assessment - retirement plan specialist: Respiratory Tract Infection Hx - retirement plan specialist Hx Respiratory Tract Infection No 12/04/24 09:51 STOP Sleep Apnea STOP Sleep Apnea - retirement plan specialist: STOP Sleep Apnea - retirement plan specialist Hx Hypertension Yes: PER PT, CONTROLLED ON 12/04/24 09:51 MEDS Hx Sleep Apnea Yes 12/04/24 09:51 CPAP Yes 12/04/24 09:51 BIPAP No 12/04/24 09:51 Do you snore loudly (louder than talking or can be heard Do you often feel tired/ fatigued/ sleepy during daytime? Has anyone observed you stop breathing during sleep? STOP Results Positive 12/04/24 09:51 QUESTION #5 FULL TEXT : Do you snore loudly (louder than talking or can be heard through closed doors)? Tobacco Use History Tobacco Use History - retirement plan specialist: Tobacco Use History - retirement plan specialist Tobacco Use Non-smoker 08/26/20 12:47 Smoking Status Never smoker 12/04/24 09:51 Hx Tobacco Use No 12/04/24 09:51 Years Smoking Packs Smoked per Day Smoking Cessation Date was within the last 15 years Hx Smoking Cessation Date Hx Smoking Cessation Counseling Hematologic Medial History Hematologic Hx - retirement plan specialist: Hematologic Medical Hx - guide alpine Hx of Blood Transfusion No 12/04/24 09:51 Hx of Transfusion in last 3 No 12/04/24 09:51 Months Date of Last Transfusion (if within last 3 months) Ever experience any problems No 12/04/24 09:51 with transfusion(s)? Specify any problems Hx of Preganancy in last 3 No 12/04/24 09:51 Months Nurse Filling Out Transfusion MGRIFFITH 12/04/24 09:51 & Questions: Date: 12/04/24 12/04/24 09:51 Time: 09:54 12/04/24 09:51 Patient unable to answer at this time (ie. confused, unrespo /Reproduction History /Reproductive History - retirement plan specialist: /Reproductive Hx- retirement plan specialist Hx Now No 12/04/24 09:51 Gestational Age (in weeks): EDC: Hx Hx Para Hx Section SAB No 12/04/24 09:51 Active Medications Active Medications: Current Medications Generic Name Dose Route Start Last Admin Trade Name Freq PRN Reason Stop Dose Admin Lactated Ringer's 1,000 mls @ 15 mls/hr 12/05/24 07:30 12/05/24 07:43 IV 15 mls/hr .Q48H RICHARD Administration PFSH Medical History Wears hearing aid Uses self-applied continuous glucose monitoring device Thyroid disease Insulin dependent diabetes mellitus History of renal disease Excessive bleeding Gastric reflux Vaginal atrophy Mixed incontinence Renal insufficiency History of ESBL E. coli infection Obesity Urinary urgency Wears glasses Wears dentures Arthritis Easy bruising Restless legs Dietary restriction History of diverticulitis Shortness of breath on exertion Chronic cough Leg cramps History of edema History of echocardiogram History of stress test History of colon polyps GERD (gastroesophageal reflux disease) BiPAP (biphasic positive airway pressure) dependence Pyelonephritis Non-smoker Low back pain ANISHA (obstructive sleep apnea) Asthma Diabetes Shoulder pain Hemorrhoids Kidney disease Cancer HTN (hypertension) Hyperlipidemia Home Medications ?Medication ?Instructions ?Recorded ?Last Taken ?Type multivitamin 1 tab PO DAILY #90 tabs 02/16/22 Unknown Rx potassium citrate 99 mg capsule 99 mg PO DAILY #90 caps 02/16/22 Unknown Rx lovastatin 20 mg tablet 20 mg PO QHS cholesterol #90 tabs 03/23/23 Unknown Rx omeprazole 20 mg capsule,delayed 20 mg PO DAILY GERD #90 caps 03/23/23 Unknown Rx release ascorbate calcium (vitamin C) 500 500 mg PO DAILY 09/23/23 Unknown History mg tablet blood-glucose sensor (FreeStyle #6 ea 04/10/24 Unknown Rx Mary Ann 3 Plus Sensor device) insulin aspart 20 unit subcut TID 09/28/24 Unknown History (niacinamide)(U-100) 100 unit/mL(3 mL) subcutaneous pen (Fiasp FlexTouch U-100 Insulin) insulin glargine 100 unit/mL (3 15 unit subcut DAILY 09/28/24 Unknown History mL) subcutaneous pen (Lantus Solostar U-100 Insulin) vitamin D3 125 mcg (5,000 1 cap PO DAILY 09/28/24 Unknown History unit)-vitamin K2 180 mcg capsule (K2-D3 Max) estradiol 0.01% (0.1 mg/gram) 1 g vaginal 3XW 3 months #42.5 10/30/24 Unknown Rx vaginal cream grams methenamine hippurate 1 gram tablet 1 g PO BID #180 tabs 10/30/24 Unknown Rx levothyroxine 200 mcg tablet 200 mcg PO MOTUWETHFRSA 12/04/24 Unknown History losartan 100 mg tablet 100 mg PO DAILY 12/04/24 Unknown History magnesium glycinate 100 mg (as 200 mg PO BID 12/04/24 Unknown History glycinate) tablet omega 4-dcs-jye-fish oil 1,200 mg 1 cap PO DAILY 12/04/24 Unknown History (144 mg-216 mg) capsule (Fish Oil) tirzepatide 15 mg/0.5 mL 15 mg (0.5 mL) subcut ESQUIVEL #6 mL 12/04/24 11/19/24 Rx subcutaneous pen injector (Mounjaro) Allergy/AdvReac Type Severity Reaction Status Date / Time ciprofloxacin (From Cipro) Allergy Mild Rash Verified 12/05/24 07:28 ondansetron HCl (From Zofran Allergy Rash Verified 12/05/24 07:28 (as hydrochloride)) oxycodone HCl (From Percocet) Allergy Rash Verified 12/05/24 07:28 Penicillins (PCN) Allergy Other Verified 12/05/24 07:28 propoxyphene napsylate (From Allergy Rash Verified 12/05/24 07:28 Darvocet-N 100) nickel AdvReac Intermediate Rash Verified 12/05/24 07:28 Family History Father Colon cancer Myocardial infarction Diabetes Hypertension Hyperlipemia Grandmother No problems noted. Mother Colon cancer Cancer Heart disease CVA (cerebral vascular accident) Diabetes Thyroid disorder Hypertension Myocardial infarction Hyperlipemia Brother Colon cancer Unknown Breast cancer 2 cousins Uncle Colon cancer Surgical History History of left knee replacement History of laparoscopy History of oral surgery H/O: hysterectomy History of cholecystectomy History of colonoscopy (~08/14/19) History of esophagogastroduodenoscopy (EGD) S/P colonoscopy S/P wrist surgery S/P hysterectomy Stone, kidney Status post laparoscopic cholecystectomy Social History Smoking Status: Never smoker second hand exposure: No alcohol intake: current alcohol intake frequency: holidays/special occasions only substance use type: does not use caffeine: Yes what type of physical activity do you participate in: none frequency: does not exercise Review of Systems (Anesthesia) ROS Narrative System reviewed and no additional complaints, except as documented. Physical Exam Resp clear to auscultation bilaterally
--- NOTE | 2024-12-05 08:15 | H&P.OPEN ---
HPI - General HPI Narrative NIMO MCCLOUD, is a 73 F who presents for surveillance colonoscopy. Patient's last colonoscopy was 3 years ago and polyps were removed. She denies any abdominal pain or blood in the stool. She does have extensive family history of colon cancer. [facility], LATER [facility] Medical History Wears hearing aid Uses self-applied continuous glucose monitoring device Thyroid disease Insulin dependent diabetes mellitus History of renal disease Excessive bleeding Gastric reflux Vaginal atrophy Mixed incontinence Renal insufficiency History of ESBL E. coli infection Obesity Urinary urgency Wears glasses Wears dentures Arthritis Easy bruising Restless legs Dietary restriction History of diverticulitis Shortness of breath on exertion Chronic cough Leg cramps History of edema History of echocardiogram History of stress test History of colon polyps GERD (gastroesophageal reflux disease) BiPAP (biphasic positive airway pressure) dependence Pyelonephritis Non-smoker Low back pain ANISHA (obstructive sleep apnea) Asthma Diabetes Shoulder pain Hemorrhoids Kidney disease Cancer HTN (hypertension) Hyperlipidemia Home Medications ?Medication ?Instructions ?Recorded ?Last Taken ?Type multivitamin 1 tab PO DAILY #90 tabs 02/16/22 Unknown Rx potassium citrate 99 mg capsule 99 mg PO DAILY #90 caps 02/16/22 Unknown Rx lovastatin 20 mg tablet 20 mg PO QHS cholesterol #90 tabs 03/23/23 Unknown Rx omeprazole 20 mg capsule,delayed 20 mg PO DAILY GERD #90 caps 03/23/23 Unknown Rx release ascorbate calcium (vitamin C) 500 500 mg PO DAILY 09/23/23 Unknown History mg tablet blood-glucose sensor (FreeStyle #6 ea 04/10/24 Unknown Rx Mary Ann 3 Plus Sensor device) insulin aspart 20 unit subcut TID 09/28/24 Unknown History (niacinamide)(U-100) 100 unit/mL(3 mL) subcutaneous pen (Fiasp FlexTouch U-100 Insulin) insulin glargine 100 unit/mL (3 15 unit subcut DAILY 09/28/24 Unknown History mL) subcutaneous pen (Lantus Solostar U-100 Insulin) vitamin D3 125 mcg (5,000 1 cap PO DAILY 09/28/24 Unknown History unit)-vitamin K2 180 mcg capsule (K2-D3 Max) estradiol 0.01% (0.1 mg/gram) 1 g vaginal 3XW 3 months #42.5 10/30/24 Unknown Rx vaginal cream grams methenamine hippurate 1 gram tablet 1 g PO BID #180 tabs 10/30/24 Unknown Rx levothyroxine 200 mcg tablet 200 mcg PO MOTUWETHFRSA 12/04/24 Unknown History losartan 100 mg tablet 100 mg PO DAILY 12/04/24 Unknown History magnesium glycinate 100 mg (as 200 mg PO BID 12/04/24 Unknown History glycinate) tablet omega 0-pqg-opr-fish oil 1,200 mg 1 cap PO DAILY 12/04/24 Unknown History (144 mg-216 mg) capsule (Fish Oil) tirzepatide 15 mg/0.5 mL 15 mg (0.5 mL) subcut ESQUIVEL #6 mL 12/04/24 11/19/24 Rx subcutaneous pen injector (Mounjaro) Allergy/AdvReac Type Severity Reaction Status Date / Time ciprofloxacin (From Cipro) Allergy Mild Rash Verified 12/05/24 07:28 ondansetron HCl (From Zofran Allergy Rash Verified 12/05/24 07:28 (as hydrochloride)) oxycodone HCl (From Percocet) Allergy Rash Verified 12/05/24 07:28 Penicillins (PCN) Allergy Other Verified 12/05/24 07:28 propoxyphene napsylate (From Allergy Rash Verified 12/05/24 07:28 Darvocet-N 100) nickel AdvReac Intermediate Rash Verified 12/05/24 07:28 Family History Father Colon cancer Myocardial infarction Diabetes Hypertension Hyperlipemia Grandmother No problems noted. Mother Colon cancer Cancer Heart disease CVA (cerebral vascular accident) Diabetes Thyroid disorder Hypertension Myocardial infarction Hyperlipemia Brother Colon cancer Unknown Breast cancer 2 cousins Uncle Colon cancer Surgical History History of left knee replacement History of laparoscopy History of oral surgery H/O: hysterectomy History of cholecystectomy History of colonoscopy (~08/14/19) History of esophagogastroduodenoscopy (EGD) S/P colonoscopy S/P wrist surgery S/P hysterectomy Stone, kidney Status post laparoscopic cholecystectomy Social History Smoking Status: Never smoker second hand exposure: No alcohol intake: current alcohol intake frequency: holidays/special occasions only substance use type: does not use caffeine: Yes what type of physical activity do you participate in: none frequency: does not exercise Past Medical/Surgical History Planned Operation Planned Operative Procedure(s): COLOONOSCOPY S.O.S: No Previous Hospitalizations/Surgeries HX Hospitalizations: No HX of Surgeries: gallbladder, hysterectomy, kidney stones wrist left surgery, right shoulder sugery cscope 2019,egd 2019 Any Problems With Anesthesia: Yes (PONV; DIFFICULTY WAKING; COLLAPSED LUNG) You/Your Family Experience Fever (Hyperthermia) With Anes: No Cholinesterase deficiency: No Cardiovascular Hx Chest Pain within Last 2 months: No Hx of Irregular Heartbeat and/or Afib: No Hx Heart Attack: No Hx Congestive Heart Failure: No Hx Rheumatic Fever: No Hx Hypertension: Yes (PER PT, CONTROLLED ON MEDS) Hx Internal Defibrillator: No Hx Pacemaker: No Hx Cardiac Catheterization: No Hx Cardiac Surgery/Stents/Etc.: No Hx Stress Test: Yes (2019) Hx Pain in Legs when Walking/Leg Cramps: No Respiratory Chronic Cough: No HX of Shortness of Breath: Yes (sob with 2 flights of stairs) Hoarseness: No Hx Chronic Obstructive Pulmonary Disease (COPD): No Hx Asthma: Yes (prn inhaler) Hx Emphysema: No Hx Sleep Apnea: Yes CPAP: Yes BIPAP: No Hx Respiratory Tract Infection/Cold (presently): No Result (for STOP score): Positive Hx Smoking: No Smoking Status: Never smoker Gastrointestinal Controlled With Meds: Yes Hx Gastrointestinal Disorders: No Hx Gastrointestinal Bleed: No Hx Ulcer: No Hx Hiatal Hernia: Yes Difficulty Chewing/Swallowing: No Special diet followed at home: Yes (ada) Hx Unplanned Weight Loss of 20#: No HX Unplanned Weight Gain of 20#: No Neurological Hx Seizures: No HX Syncope/Blackout Spells/Unconsciousness: Yes (vertigo prn) Hx Transient Ischemic Attacks (TIA): No Hx Multiple Sclerosis: No Hx Parkinson's Disease: No Hx Head/Neck Injury: No Hx Headaches: Yes (occ) Hx Back Injury/Pain: Yes (lower back pain/arthritis) Recent Onset of Speech Difficulty: No Restless Legs: Yes Does patient have nerve stimulator: No Blood Disorder Hx Leukemia: No Bleeding Tendencies: No Hx Deep Vein Thrombosis: No Hx High Cholesterol: Yes (on med) Blood Transmitted Disease: No Hx Hepatitis: No Hx Cirrhosis: No Hx Anemia: Yes (in the past) Hx Blood Disorders: No Reproduction : No Is Patient Lactating: No Hx Hysterectomy: Yes Hx Tubal Ligation: No Are You Post Menopause: No Genitourinary Hx Renal Disease: No (kidney stones) Hx Dialysis: No Musculoskeletal Hx Arthritis: Yes Hx Rheumatoid Arthritis: No Hx Gout: No Recent Onset of an Orthopedic Problem: No (.) Endocrine Hx Diabetes: Yes (TYPE 2) Insulin: Yes Thyroid Disease: Yes (on med) Hx Steroid Therapy: No Psycho/Social Hx Substance Use: No Hx Alcohol Use: Yes (occ) Hx Anxiety: No Hx Depression: Yes (in the past) Mental Illness: No Hx Dementia: No Miscellaneous Hx Cancer: Yes (uterine ca/hysterectomy) Recent Exposure to Contagious Disease: No Hx of C-Diff: No Any Loose Teeth: No (full set of dentures) Allergies ciprofloxacin (From Cipro) Allergy (Mild, Verified 12/05/24 07:28) Rash ondansetron HCl (From Zofran (as hydrochloride)) Allergy (Verified 12/05/24 07:28) Rash oxycodone HCl (From Percocet) Allergy (Verified 12/05/24 07:28) Rash Penicillins (PCN) Allergy (Verified 12/05/24 07:28) Other states she gets a yeast infection propoxyphene napsylate (From Darvocet-N 100) Allergy (Verified 12/05/24 07:28) Rash nickel Adverse Reaction (Intermediate, Verified 12/05/24 07:28) Rash Maternal: Family History Father Colon cancer Myocardial infarction Diabetes Hypertension Hyperlipemia Grandmother No problems noted. Mother Colon cancer Cancer Heart disease CVA (cerebral vascular accident) Diabetes Thyroid disorder Hypertension Myocardial infarction Hyperlipemia Brother Colon cancer Unknown Breast cancer 2 cousins Uncle Colon cancer Heart Disease and No pertinent history Discharge Is Pt Admitted From a Group Home, or a Jail: No Who Could Help: [facility]TR After D/C, Where Do you Plan to Go: Return Home From the PAT History Number of Risk Factors: 7 Vital Signs Vital Signs Vital Signs: 12/05/24 07:32 12/05/24 07:32 12/05/24 08:09 Temperature 97.5 F L 97.5 F L Temperature Source Temporal Pulse Rate 55 L 55 L Respiratory Rate 16 16 Respiratory Pattern Normal Blood Pressure 131/58 H 131/58 H Blood Pressure Mean 82 Blood Pressure Source Monitor Blood Pressure Position Semi-Fowlers Blood Pressure Location Left Arm Pulse Ox 98 98 Oxygen Delivery Method Room Air Room Air Weight Weight: 260 lb 2.327 oz Body Mass Index (BMI) 46.0 Physical Exam Const alert and oriented x3 HEENT normocephalic Eyes PERRL Resp normal respiratory effort and normal air movement Cardio regular rate and regular rhythm GI soft to palpation, non-tender and non-distended Extremity normal to inspection Assessment & Plan Assessment/Plan (1) Family history of colon cancer in father: PLAN: Patient is here for colonoscopy due to family history of colon cancer and history of polyps. I explained endoscopy in detail to the patient. I explained the risks including but not limited to stroke or heart attack with anesthesia, perforation of the GI tract, bleeding, infection. I explained that any of these could necessitate further emergency surgery. The patient understands and all questions were answered sufficiently. The patient wishes to proceed with procedure. Lazaro Andres MD Pager: [facility] [address] [place] [address], [address] [place] [address] Office: Surgery Risks - Colonoscopy Risks Include but are not Limited To: Risks include but are not limited to: Bleeding, perforation requiring further surgery, inability to complete colonoscopy requiring barium enema.
[2024-12-05] MEDS: DiphenhydrAMINE 50 MG/ML Syringe 12.5 MG IV (08:43)
--- NOTE | 2024-12-05 08:51 | OP.PROVAT_ITS ---
12/05/2024 Allison Gomez [facility] [address] [place] [address] Re : Colonoscopy procedure for Mana Martínez Dear Dr. Gomez This procedure was performed on Thursday, December 05, 2024. My impressions and recommendations are as follows: Impressions : - The entire examined colon is normal on direct and retroflexion views. - No specimens collected. Recommendations : - Discharge patient to home. - Resume previous diet. - Continue present medications. - Repeat colonoscopy in 5 years for screening purposes. My findings are described in the full procedure note, which is enclosed. If I can be of further assistance, please feel free to contact me at Doctor phone number(s): , Work: . Sincerely, Lazaro Andres MD 12/05/2024 8:51:33 AM This report has been signed electronically.
--- NOTE | 2024-12-05 08:51 | OP.COLON_ITS ---
Patient Name: Mana Martínez Procedure Date: 12/05/2024 8:16 AM Date of : 1950 Age: 73 Procedure: Colonoscopy Indications: High risk colon cancer surveillance: Personal history of colonic polyps Providers: Lazaro Andres MD Referring MD: Allison Gomez Medicines: Propofol per Anesthesia Patient Profile: This is a 73 year old female. Refer to note in patient chart for documentation of history and physical. Last Colonoscopy: 5 years ago. Complications: No immediate complications. Procedure: Pre-Anesthesia Assessment: - Prior to the procedure, a History and Physical was performed, and patient medications and allergies were reviewed. The patient's tolerance of previous anesthesia was also reviewed. The risks and benefits of the procedure and the sedation options and risks were discussed with the patient. All questions were answered, and informed consent was obtained. Prior Anticoagulants: The patient has taken no anticoagulant or antiplatelet agents. ASA Grade Assessment: II - A patient with mild systemic disease. After reviewing the risks and benefits, the patient was deemed in satisfactory condition to undergo the procedure. After I obtained informed consent, the scope was passed under direct vision. Throughout the procedure, the patient's blood pressure, pulse, and oxygen saturations were monitored continuously. The Colonoscope was introduced through the anus and advanced to the cecum, identified by appendiceal orifice and ileocecal valve. The colonoscopy was performed without difficulty. The patient tolerated the procedure well. The quality of the bowel preparation was good. The ileocecal valve, appendiceal orifice, and rectum were photographed. Scope In: 8:29:29 AM Scope Withdrawal Time 0 hours 6 minutes 26 seconds Scope Out: 8:49:12 AM Total Procedure Duration Time 0 hours 19 minutes 43 seconds Findings: The entire examined colon appeared normal on direct and retroflexion views. Impression: - The entire examined colon is normal on direct and retroflexion views. - No specimens collected. Recommendation: - Discharge patient to home. - Resume previous diet. - Continue present medications. - Repeat colonoscopy in 5 years for screening purposes. Procedure Code(s): --- Professional --- 93251, Colonoscopy, flexible; diagnostic, including collection of specimen(s) by brushing or washing, when performed (separate procedure) Diagnosis Code(s): --- Professional --- Z86.010, Personal history of colonic polyps CPT copyright 2021 [employer]. All rights reserved. The codes documented in this report are preliminary and upon surveillance dual rate officer review may be revised to meet current compliance requirements. Lazaro Andres MD 12/05/2024 8:51:33 AM This report has been signed electronically. Number of Addenda: 0 Note Initiated On: 12/05/2024 8:16 AM
--- NOTE | 2024-12-05 08:56 | PCM.POST.ANE ---
Anesthesia: Postop Eval I Current Vital Signs Temperature: 97.4 F Pulse Rate: 64 Blood Pressure: 124/58 Respiratory Rate: 16 Pulse Ox: 98 Oxygen Delivery Method: Room Air Assessment Airway patent: Yes Spontaneous unlabored respirations: Yes Mental status: Awake and Calm nausea: No Vomiting: No Anesthesia Complication: No Fluid Hydration Crystalloid volume administer (ml): 300 Total IV fluid infused: 300 Progress Note Anesthesia document: Postop Eval 1 completed: Yes
--- NOTE | 2024-12-05 11:25 | POSTOPAN2_ITS ---
Anesthesia Postop Eval I Sum Postop Eval Completion status Anesthesia document: Postop Eval 1 completed: Yes Anesthesia Postop Eval I Summary Anesthesia Postop Eval I Summary: Anesthesia Postop Eval I: Assessment Summary Airway patent Yes 12/05/24 08:57 PHOTOVOLTAIC SOLAR CELL DESIGNER.[email or web address] Spontaneous unlabored Yes 12/05/24 08:57 PHOTOVOLTAIC SOLAR CELL DESIGNER.GDOTT respirations Mental status Awake,Calm 12/05/24 08:57 PHOTOVOLTAIC SOLAR CELL DESIGNER.GDOTT nausea No 12/05/24 08:57 PHOTOVOLTAIC SOLAR CELL DESIGNER.GDOTT Vomiting No 12/05/24 08:57 PHOTOVOLTAIC SOLAR CELL DESIGNER.GDOTT Anesthesia Postop Eval I: Fluid Summary Crystalloid volume administer 300 12/05/24 08:57 PHOTOVOLTAIC SOLAR CELL DESIGNER.GDOTT (ml) Colloids volume administered ( ml) Blood Product volume administered (ml) Total IV fluid infused 300 12/05/24 08:57 PHOTOVOLTAIC SOLAR CELL DESIGNER.GDOTT Anesthesia Postop Eval I: Summary Notes Anesthesia Complication No 12/05/24 08:57 PHOTOVOLTAIC SOLAR CELL DESIGNER.GDOTT Anesthesia Complication Comment: Post-operative progress note Anesthesia: Postop Eval II Evaluation Mental status: Awake and Calm Pain Level: 0 nausea: No Vomiting: No Complications Anesthesia Complication: No
--- NOTE | 2024-12-05 11:25 | PCM.POSTANE2 ---
Anesthesia Postop Eval I Sum Postop Eval Completion status Anesthesia document: Postop Eval 1 completed: Yes Anesthesia Postop Eval I Summary Anesthesia Postop Eval I Summary: Anesthesia Postop Eval I: Assessment Summary Airway patent Yes 12/05/24 08:57 SYSTEMS [email or web address] [email or web address] Spontaneous unlabored Yes 12/05/24 08:57 SYSTEMS SOFTWARE DESIGNER.[email or web address] respirations Mental status Awake,Calm 12/05/24 08:57 SYSTEMS [email or web address] DESIGNER.[email or web address] nausea No 12/05/24 08:57 SYSTEMS SOFTWARE DESIGNER.[email or web address] Vomiting No 12/05/24 08:57 SYSTEMS [email or web address] DESIGNER.[email or web address] Anesthesia Postop Eval I: Fluid Summary Crystalloid volume administer 300 12/05/24 08:57 SYSTEMS SOFTWARE DESIGNER.GDOTT (ml) Colloids volume administered ( ml) Blood Product volume administered (ml) Total IV fluid infused 300 12/05/24 08:57 SYSTEMS SOFTWARE DESIGNER.GDOTT Anesthesia Postop Eval I: Summary Notes Anesthesia Complication No 12/05/24 08:57 SYSTEMS SOFTWARE DESIGNER.[email or web address] Anesthesia Complication Comment: Post-operative progress note Anesthesia: Postop Eval II Evaluation Mental status: Awake and Calm Pain Level: 0 nausea: No Vomiting: No Complications Anesthesia Complication: No
== END 2024-12-05 09:36 | disposition home or self-care (01) ==
LOC: EN 07:16 → AC 07:17
PROVIDERS: PCP Internal Medicine; Referring Provider Internal Medicine; Visit Provider Surgery
PROC: 0DJD8ZZ Inspection of Lower Intestinal Tract, Via Natural or Artificial Opening Endoscopic (ICD-10-PCS; CPT 45378; principal; 2024-12-05 08:10)
DX: Z12.11 Encounter for screening for malignant neoplasm of colon (principal); E11.9 Type 2 diabetes mellitus without complications; K21.9 Gastro-esophageal reflux disease without esophagitis; Z86.0100 Personal history of colon polyps, unspecified; E78.5 Hyperlipidemia, unspecified; I10 Essential (primary) hypertension; Z79.890 Hormone replacement therapy; E07.9 Disorder of thyroid, unspecified; Z79.85 Long-term (current) use of injectable non-insulin antidiabetic drugs; Z79.899 Other long term (current) drug therapy
CPT/HCPCS: G0105; 82962; J2405

== ENCOUNTER 2024-12-11 14:40 | Emergency (ER) | payer MEDICARE, SELFPAY ==
[2024-12-11 14:41] VITALS: BP 173/62; PULSE 61; RESP 18; TEMP 36.7; O2SAT 98; BMI 47.6
[2024-12-11 15:27] LABS: Hematocrit 39.5 % (37-47); Hemoglobin 12.7 g/dL (12.0-15.0); Immature Granulocytes Count 0.040 X10^3/uL (0.0-0.0); Mean Corp Hgb Conc 32.2 g/dL (32-36); Mean Corpuscular Volume 83.7 fL (81-99); Mean Platelet Vol. 10.6 fl (6.2-12.0); NRBC Flagged by Analyzer 0 % (0-5); Platelet Count 224 K/mm3 (150-450); RBC Distribution Width CV 15.1 % (11.6-14.6); RBC Distribution Width SD 46.5 fl (35.1-43.9); Red Blood Count 4.72 M/mm3 (4.2-5.4); White Blood Count 6.9 K/mm3 (4.4-11.0)
--- NOTE | 2024-12-11 16:05 | CT_ITS ---
PROCEDURE: BRAIN/HEAD WITHOUT CONTRAST 12/11/2024 REASON FOR EXAM: BILATERAL HEADACHE TECHNIQUE: Procedure Code: CTBR Modality: CT Procedure: BRAIN/HEAD WITHOUT CONTRAST Coronal and Sagittal reconstruction series were provided. One or more dose reduction techniques were used (e.g., Automated exposure control, adjustment of the mA and/or kV according to patient size, use of iterative reconstruction technique. RADIATION DOSE SUMMARY: DLP: 873 mGycm COMPARISON: None FINDINGS: There is no acute infarct, intracranial hemorrhage, or mass effect. There is no hydrocephalus or significant midline shift. No acute, depressed calvarial fractures. No large scalp hematomas. The paranasal sinuses are clear. CT/Brain/Head without Contrast IMPRESSION: No acute intracranial process. Reading Location: [id number]
[2024-12-11 16:10] LABS: AST(SGOT) 22 U/L (<=31); Alanine Aminotransfer ALT/SGPT 24 U/L (<=34); Albumin, Serum 3.8 g/dL (3.4-4.8); Alkaline Phosphatase 65 U/L (35-104); Anion Gap 9 (5-15); BUN 26 mg/dL (4-19); BUN/Creat Ratio 21.7 RATIO (10-20); Calcium,Total 9.4 mg/dL (7.6-11.0); Carbon Dioxide 24.8 mmol/L (21.0-32.0); Chloride 104 mmol/L (98-108); Estimated Creatinine Clearance 55.40 ml/min (50-250); Globulin 3.0 g/dL (2.2-4.2); Glucose 150 mg/dL (70-99); Potassium 4.5 mmol/L (3.3-5.1)
[2024-12-11 16:41] VITALS: PULSE 60; RESP 17; O2SAT 97
[2024-12-11 17:36] LABS: Mucous, Urine 0 SEEN /hpf (<or=2+)
[2024-12-11 17:48] LABS: Color, Urine Straw (Yellow); Glucose, Dipstick Normal (Normal); Ketone-Dipstick Negative (Negative); Leukocyte Esterase-Dipstick 25 /ul (Negative); Nitrite-Dipstick Positive (Negative); Occult Blood-Urine Negative /ul (Negative); Protein-Dipstick Negative (Negative); Specific Gravity, Urine 1.010 (1.002-1.030); Urine Bilirubin Dipstick Negative (Negative)
[2024-12-11 18:00] VITALS: PULSE 65; RESP 20; O2SAT 95
[2024-12-11 18:28] LABS: Red Blood Cells-Urine 0-5 SEEN /hpf (0-5); Squamous Epithelial Cells - UA 0-5 SEEN /hpf (5-10)
--- NOTE | 2024-12-11 18:29 | EX.ED.DYSGE1 ---
HPI History of Present Illness Chief Complaint: General Illness Detail of Chief Complaint: Patient presents with numerous complaints. This will be detailed in the HP Informant: patient Onset/Context/Timing Onset: Yesterday Context: Sudden Onset Timing: Continuous Quality: Pain and also complains of swelling to lower extremities Location: Bifrontal and feet Current Severity: Mild Maximum Severity: Severe Worsened by: Nothing for either Relieved by: Nothing for either Associated Symptoms Associated Symptoms: HPI narrative Narrative Narrative: Patient is a 73-year-old woman. She presents with abrupt onset of bifrontal bitemporal head discomfort with no ocular, visual or auditory symptoms. She also complains of swelling of her feet. She has been sitting more than normal. She does not have history of congestive heart failure. She denies orthopnea or PND. She denies chest pressure, tightness or heaviness. She denies dyspnea or dyspnea on exertion. She denies fever, chills night sweats. She denies recent contact with anyone that is ill. She denies ringing or ears or decreased hearing. She denies trouble with speech or swallowing. Patient denies cough, pleuritic chest pain. There is no history of VTE. Patient does complain of dizziness. This is not described as the room or her spinning. It is not described as lightheadedness either. Daughter states her balance is off and she walked back from triage. Prior similar symptoms: No Recent Illness/Hospitalization: No PFSH PFS Medical History Wears hearing aid Uses self-applied continuous glucose monitoring device Thyroid disease Insulin dependent diabetes mellitus History of renal disease Excessive bleeding Gastric reflux Vaginal atrophy Mixed incontinence Renal insufficiency History of ESBL E. coli infection Obesity Urinary urgency Wears glasses Wears dentures Arthritis Easy bruising Restless legs Dietary restriction History of diverticulitis Shortness of breath on exertion Chronic cough Leg cramps History of edema History of echocardiogram History of stress test History of colon polyps GERD (gastroesophageal reflux disease) BiPAP (biphasic positive airway pressure) dependence Pyelonephritis Non-smoker Low back pain ANISHA (obstructive sleep apnea) Asthma Diabetes Shoulder pain Hemorrhoids Kidney disease Cancer HTN (hypertension) Hyperlipidemia Home Medications ?Medication ?Instructions ?Recorded ?Last Taken ?Type multivitamin 1 tab PO DAILY #90 tabs 02/16/22 Unknown Rx potassium citrate 99 mg capsule 99 mg PO DAILY #90 caps 02/16/22 Unknown Rx lovastatin 20 mg tablet 20 mg PO QHS cholesterol #90 tabs 03/23/23 Unknown Rx omeprazole 20 mg capsule,delayed 20 mg PO DAILY GERD #90 caps 03/23/23 Unknown Rx release ascorbate calcium (vitamin C) 500 500 mg PO DAILY 09/23/23 Unknown History mg tablet blood-glucose sensor (FreeStyle #6 ea 04/10/24 Unknown Rx Mary Ann 3 Plus Sensor device) insulin aspart 20 unit subcut TID 09/28/24 Unknown History (niacinamide)(U-100) 100 unit/mL(3 mL) subcutaneous pen (Fiasp FlexTouch U-100 Insulin) insulin glargine 100 unit/mL (3 15 unit subcut DAILY 09/28/24 Unknown History mL) subcutaneous pen (Lantus Solostar U-100 Insulin) vitamin D3 125 mcg (5,000 1 cap PO DAILY 09/28/24 Unknown History unit)-vitamin K2 180 mcg capsule (K2-D3 Max) estradiol 0.01% (0.1 mg/gram) 1 g vaginal 3XW 3 months #42.5 10/30/24 Unknown Rx vaginal cream grams methenamine hippurate 1 gram tablet 1 g PO BID #180 tabs 10/30/24 Unknown Rx levothyroxine 200 mcg tablet 200 mcg PO MOTUWETHFRSA 12/04/24 Unknown History losartan 100 mg tablet 100 mg PO DAILY 12/04/24 Unknown History magnesium glycinate 100 mg (as 200 mg PO BID 12/04/24 Unknown History glycinate) tablet omega 4-vrp-xzs-fish oil 1,200 mg 1 cap PO DAILY 12/04/24 Unknown History (144 mg-216 mg) capsule (Fish Oil) tirzepatide 15 mg/0.5 mL 15 mg (0.5 mL) subcut ESQUIVEL #6 mL 12/04/24 11/19/24 Rx subcutaneous pen injector (Mounjaro) sulfamethoxazole 800 1 tab PO BID #14 TABLETS 12/11/24 Unknown Rx mg-trimethoprim 160 mg tablet Allergy/AdvReac Type Severity Reaction Status Date / Time ciprofloxacin (From Cipro) Allergy Mild Rash Verified 12/11/24 14:41 ondansetron HCl (From Zofran Allergy Rash Verified 12/11/24 14:41 (as hydrochloride)) oxycodone HCl (From Percocet) Allergy Rash Verified 12/11/24 14:41 Penicillins (PCN) Allergy Other Verified 12/11/24 14:41 propoxyphene napsylate (From Allergy Rash Verified 12/11/24 14:41 Darvocet-N 100) nickel AdvReac Intermediate Rash Verified 12/11/24 14:41 Family History Father Colon cancer Myocardial infarction Diabetes Hypertension Hyperlipemia Grandmother No problems noted. Mother Colon cancer Cancer Heart disease CVA (cerebral vascular accident) Diabetes Thyroid disorder Hypertension Myocardial infarction Hyperlipemia Brother Colon cancer Unknown Breast cancer 2 cousins Uncle Colon cancer Surgical History History of left knee replacement History of laparoscopy History of oral surgery H/O: hysterectomy History of cholecystectomy History of colonoscopy (~08/14/19) History of esophagogastroduodenoscopy (EGD) S/P colonoscopy S/P wrist surgery S/P hysterectomy Stone, kidney Status post laparoscopic cholecystectomy Social History Smoking Status: Never smoker second hand exposure: No alcohol intake: current alcohol intake frequency: holidays/special occasions only substance use type: does not use caffeine: Yes what type of physical activity do you participate in: none frequency: does not exercise ROS ROS ED Constitutional Constitutional ED: Denies chills, fever(s), subjective, sweats or weight loss Eyes Eyes: Denies blurry vision, change in vision or diplopia ENT ENT ED: Denies ear pain, rhinorrhea or sore throat Cardiovascular Cardiovascular: Denies chest pain or palpitations Respiratory/Chest Respiratory/Chest: Denies cough, dyspnea or dyspnea on exertion Gastrointestinal Gastrointestinal: Denies abdominal pain, constipation, diarrhea, melena, nausea or vomiting Genitourinary Genitourinary ED: Denies dysuria, hematuria or urinary frequency Musculoskeletal Musculoskeletal: Denies arthralgias, myalgias or neck pain Integumentary Denies rash Neurologic Neurologic: Reports headache(s); Denies paresthesias or weakness Psychiatric Psychiatric: Denies anxiety or depression Endocrine Endocrinology: Denies cold intolerance or heat intolerance EXAM Physical Exam Const Vital Signs: 12/11/24 14:41 12/11/24 16:04 12/11/24 16:41 Temperature 98.0 F Temperature Source Oral Pulse Rate 61 60 Respiratory Rate 18 17 Respiratory Effort Normal Respiratory Pattern Normal Blood Pressure 173/62 H Blood Pressure Mean 99 Pulse Ox 98 97 Oxygen Delivery Method Room Air Room Air 12/11/24 18:00 Temperature Temperature Source Pulse Rate 65 Respiratory Rate 20 H Respiratory Effort Respiratory Pattern Blood Pressure Blood Pressure Mean Pulse Ox 95 Oxygen Delivery Method Room Air Positive well nourished and well developed Constitutional Narrative: Patient appears in no obvious distress. Blood pressure is elevated. General Appearance ED: well developed; Negative for cyanotic, diaphoretic or pallor HEENT Reports moist mucous membranes HEENT Narrative: Head is atraumatic and normocephalic. Ears normal. TMs normal. Nares patent. There is no discharge. There is no frontal, ethmoid or maxillary sinus tenderness on percussion. There is no tenderness over the temporal region. Posterior pharynx is normal. Uvula is midline. There is no deviation of tongue with protrusion. Eyes PERRL and EOMs intact bilaterally Eyes Narrative: There is no nystagmus. There is no visual field cut. There is no papilledema. General Eye ED: Negative for pale conjunctiva or scleral icterus Neck no lymphadenopathy, supple and no JVD Neck Narrative: There are no carotid bruits. Resp normal respiratory effort and clear to auscultation bilaterally Cardio regular rate, regular rhythm, S1 normal heart sound, S2 normal heart sound and no murmurs GI normal to inspection, nondistended, normoactive bowel sounds, non-tender, non-distended and no masses; Negative for hepatosplenomegaly GI Narrative: Exam limited due to body habitus. Back/Spine no CVA tenderness Extremity normal to inspection Extremity Narrative: There is mild 2 to 3 mm pitting edema of the feet. There is no discoloration, asymmetry, leg vein distention, palpable cord sounds on the distribution deep venous system. Neuro oriented x3, CN's II-XII intact bilaterally and no sensory deficits noted Sensorium / Orientation: alert Motor Exam: strength 5/5 throughout Psych mental status grossly normal Skin no rashes or lesions noted, no wounds and skin turgor normal General Skin Exam: elasticity normal; Negative for jaundice or pallor MDM MDM MDM Narrative Medical decision making narrative: Suspect patient's swelling is due to dependent edema since she been sitting more. With regards to her headache this could represent many things. This could represent sinusitis, sinus pain, tension headache, vascular headache, need to also consider subarachnoid hemorrhage. Since she has no visual complaints and no tenderness over the temporal arteries doubt temporal arteritis. Workup included CT appropriate blood work. History & Record Review Additional record(s) reviewed:: Prior ED visit and Prior labs Lab Data Attestation: I reviewed the patient's lab results. Lab results narrative: CBC is unremarkable. Comprehensive metabolic panel is unremarkable. The BUN to creatinine ratio slightly elevated. Urinalysis reveals leukoesterase and nitrites. Specimen is a good specimen with 5-10 WBCs and 3+ bacteria. This may explain her generalized weakness and not feeling well. Labs: Laboratory Results - last 24 hr 12/11/24 12/11/24 14:54 17:22 WBC 6.9 RBC 4.72 Hgb 12.7 Hct 39.5 MCV 83.7 MCH 26.9 L MCHC 32.2 RDW Std Deviation 46.5 H RDW Coeff of Tara 15.1 H Plt Count 224 MPV 10.6 Immature Gran % (Auto) 0.600 Neut % (Auto) 62.3 Lymph % (Auto) 25.7 [place] % (Auto) 8.7 Eos % (Auto) 2.3 Baso % (Auto) 0.4 Absolute Neuts (auto) 4.3 Absolute Lymphs (auto) 1.77 Nucleated RBC % 0 Sodium 138 Potassium 4.5 Chloride 104 Carbon Dioxide 24.8 Anion Gap 9 BUN 26 H Creatinine 1.18 Estim Creat Clear Calc 55.40 Est GFR (MDRD) Non-Af 49 L BUN/Creatinine Ratio 21.7 H Glucose 150 H Calcium 9.4 Total Bilirubin 0.26 AST 22 ALT 24 Alkaline Phosphatase 65 Total Protein 6.8 Albumin 3.8 Globulin 3.0 Albumin/Globulin Ratio 1.3 Urine Color Straw Urine Clarity Clear Urine pH 7.0 Ur Specific [place] 1.010 Urine Protein Negative Urine Glucose (UA) Normal Urine Ketones Negative Urine Occult Blood Negative Urine Nitrite Positive H Urine Bilirubin Negative Urine Urobilinogen Normal Ur Leukocyte Esterase 25 H Urine RBC 0-5 SEEN Urine WBC 5-10 SEEN Ur Squamous Epith Cells 0-5 SEEN Urine Bacteria 3+ Urine Mucus 0 SEEN Patient was asked if she is having urinary symptoms. She endorses frequency and urgency. In light of this we will treat with antibiotics Radiography Diagnostic Testing: Clinical Impression(s) from Imaging Studies Brain CT 12/11/24 16:05 IMPRESSION: No acute intracranial process. Reading Location: [facility] Treatment and Re-Evaluation :: Patient and daughter were informed of results. Patient asked if she could have something for pain. I stated I would gladly order her something. She also received first dose of antibiotics in the emergency department. Based on multiple prior urine cultures we will treat with Bactrim. There is 1 incidence when one of her organisms was not sensitive. Discharge Plan Triage Chief Complaint: General Illness ED Provider: Jose Ken Dx/Rx/DC Orders Clinical Impression: Bilateral headache, Urinary tract infection, Benign essential HTN, Renal insufficiency, Dyslipidemia, ANISHA (obstructive sleep apnea) Instructions: Understanding Headache Pain, ED UTIs Women Prescriptions: New sulfamethoxazole-trimethoprim 800-160 mg tablet 1 tab PO BID Qty: 14 0RF No Action ascorbate calcium (vitamin C) 500 mg tablet 500 mg PO DAILY methenamine hippurate 1 gram tablet 1 g PO BID Qty: 180 0RF estradiol 0.01 % (0.1 mg/gram) cream 1 g vaginal 3XW 90 Days Qty: 42.5 3RF K2-D3 Max 125 mcg (5,000 unit)-180 mcg capsule 1 cap PO DAILY insulin glargine [Lantus Solostar U-100 Insulin] 100 unit/mL (3 mL) insulin pen 15 unit subcut DAILY Fiasp FlexTouch U-100 Insulin 100 unit/mL (3 mL) insulin pen 20 unit subcut TID magnesium glycinate 100 mg tablet 200 mg PO BID omega 5-rsd-hbb-fish oil [Fish Oil] 1,200 (144-216) mg capsule 1 cap PO DAILY levothyroxine 200 mcg tablet 200 mcg PO MOTUWETHFRSA losartan 100 mg tablet 100 mg PO DAILY multivitamin Tablet 1 tab PO DAILY Qty: 90 3RF potassium citrate 99 mg capsule 99 mg PO DAILY Qty: 90 3RF lovastatin 20 mg tablet 20 mg PO QHS Qty: 90 3RF omeprazole 20 mg capsule,delayed release(DR/EC) 20 mg PO DAILY Qty: 90 3RF (DME) FreeStyle Mary Ann 3 Plus Sensor Device See Rx Instructions .Route Qty: 6 1RF Rx Instructions: As directed Mounjaro 15 mg/0.5 mL pen injector 15 mg subcut ESQUIVEL Qty: 6 1RF Primary Care Provider: Allison Gomez Referrals: Allison Gomez MD [Primary Care Provider, Internal Medicine - [facility]] Print Language: Gabonese
[2024-12-11] MEDS: Smz/Tmp Ds Tablet 1 TABLET PO (19:08)
[2024-12-11 19:12] VITALS: BP 173/62; PULSE 65; RESP 20; TEMP 36.7; O2SAT 95
== END 2024-12-11 19:13 | disposition home or self-care (01) ==
LOC: ED 16:17
PROVIDERS: Emergency Provider Emergency Medicine; PCP Internal Medicine; Visit Provider Emergency Medicine
DX: N39.0 Urinary tract infection, site not specified (principal); E11.9 Type 2 diabetes mellitus without complications; Z79.4 Long term (current) use of insulin; R51.9 Headache, unspecified; E78.5 Hyperlipidemia, unspecified; I10 Essential (primary) hypertension; G47.33 Obstructive sleep apnea (adult) (pediatric); N28.9 Disorder of kidney and ureter, unspecified; Z90.710 Acquired absence of both cervix and uterus; Z99.81 Dependence on supplemental oxygen; K21.9 Gastro-esophageal reflux disease without esophagitis; Z79.899 Other long term (current) drug therapy; Z79.85 Long-term (current) use of injectable non-insulin antidiabetic drugs; Z96.652 Presence of left artificial knee joint; Z90.49 Acquired absence of other specified parts of digestive tract
CPT/HCPCS: 70450; 80053; 81001; 85025; 87077; 87086; 87088; 87186; 96374; 99283; A4216

== ENCOUNTER → 2024-12-25 | Outpatient (CLI) | payer MEDICARE, SELFPAY ==
[2024-12-25 10:20] LABS: Creatinine, Urine (random) 179.00 mg/dL (28.00-217.00); Microalbumin,Random Urine < 12.0 mg/L (<20 mg/L)
[2024-12-25 10:40] LABS: AST(SGOT) 23 U/L (<=31); Alanine Aminotransfer ALT/SGPT 18 U/L (<=34); Albumin, Serum 3.8 g/dL (3.4-4.8); Alkaline Phosphatase 63 U/L (35-104); Anion Gap 10 (5-15); BUN 29 mg/dL (4-19); BUN/Creat Ratio 21.5 RATIO (10-20); Calcium,Total 9.6 mg/dL (7.6-11.0); Carbon Dioxide 21.8 mmol/L (21.0-32.0); Chloride 105 mmol/L (98-108); Cholesterol 226 mg/dL (<=200); Globulin 3.1 g/dL (2.2-4.2); Glucose 168 mg/dL (70-99); Low Density Lipoprotein Calc. 152 mg/dL; Potassium 4.7 mmol/L (3.3-5.1); Triglycerides 101 mg/dL; Very Low Density Lipoprotein 20 mg/dL (5-40); Vitamin D,25 Hydroxy 75.2 ng/mL (30-100); cholesterol:hdl ratio screen 4.21
== END | disposition home or self-care (01) ==
LOC: LAB 08:44
PROVIDERS: PCP Internal Medicine; Referring Provider Nurse Practitioner Family; Visit Provider Nurse Practitioner Family
DX: E11.65 Type 2 diabetes mellitus with hyperglycemia (principal); Z79.4 Long term (current) use of insulin; E55.9 Vitamin D deficiency, unspecified
CPT/HCPCS: 36415; 80053; 80061; 82043; 82306; 82570; 84439; 84443

== ENCOUNTER → 2025-01-02 | Outpatient (CLI) | payer MEDICARE, SELFPAY ==
--- NOTE | 2025-01-02 11:51 | US_ITS ---
PROCEDURE: THYROID 01/02/2025 REASON FOR EXAM: SURVEILLANCE OF THYROID NODULE TECHNIQUE: Procedure Code: USTHY Modality: US Procedure: THYROID COMPARISON: 12/30/23 FINDINGS: Right thyroid lobe size: 4.9 x 1.7 x 1.3 cm Left thyroid lobe size: 4.6 x 1.8 x 1.6 cm Isthmus: 0.5 cm Background parenchymal echotexture is heterogeneous Nodules: 1. Lobe: Right, Location: Upper, Size: 0.9 x 0.9 x 0.9 cm, Stability: Stable Composition: Solid or almost completely solid (+2) Echogenicity: Hyper to Isoechoic (+1) Margin: Smooth (+0) Shape: Wider than tall (+0) Echogenic Foci: None (+0) TI-RADS: <2 = TR 1 * 2 = TR 2 * 3 = TR 3 * 4-6 = TR 4 * >6 = TR 5 2. Lobe: Right, Location: Mid, Size: 1.3 x 1.2 x 1.1 cm, Stability: Stable Composition: Mixed cystic and solid (+1) Echogenicity: Hypoechoic (+2) Margin: Smooth (+0) Shape: Wider than tall (+0) Echogenic Foci: None (+0) TI-RADS: <2 = TR 1 * 2 = TR 2 * 3 = TR 3 * 4-6 = TR 4 * >6 = TR 5 3. Lobe: Right, Location: Lower, Size: 0.9 x 0.9 x 0.7 cm, Stability: Stable Composition: Solid or almost completely solid (+2) Echogenicity: Hyper to Isoechoic (+1) Margin: Smooth (+0) Shape: Wider than tall (+0) Echogenic Foci: None (+0) TI-RADS: <2 = TR 1 * 2 = TR 2 * 3 = TR 3 * 4-6 = TR 4 * >6 = TR 5 US/Thyroid IMPRESSION: Stable heterogeneous thyroid gland with stable right lobe nodules. All can be followed sonographically because of their size. No new suspicious mass or nodule. No hyperemia No suspicious adenopathy RECOMMENDATION: Based on most suspicious nodule. Nodule size = largest diameter Only evaluate nodule if =>5 mm. Growth > 20% in 2 dimensions = worsening. Follow up to 4 nodules. Recommend biopsy for no more than 2 nodules. Reading Location: [id number]
== END | disposition home or self-care (01) ==
LOC: US 11:51
PROVIDERS: PCP Internal Medicine; Referring Provider Nurse Practitioner Family; Visit Provider Nurse Practitioner Family
DX: E04.1 Nontoxic single thyroid nodule (principal)
CPT/HCPCS: 76536